=== PATIENT | male | born 1945 | race Caucasian/White ===

== ENCOUNTER 2023-08-08 10:15 | Inpatient (IN) ==
[2023-08-08] MEDS: SODIUM CHLORIDE 0.9% 1,000 ML IV SCH (11:17)
[2023-08-08] MEDS: ALBUT/IPRATROP 3MG/0.5MG NEB 3 ML VIAL NEB STA (11:17)
[2023-08-08] MEDS: ONDANSETRON INJ 2 MG/ML 2 ML VIAL IV STA (11:17)
[2023-08-08 11:28] LABS: Basophils # (auto) 0.05 K/uL (0.00-0.20); Basophils % (auto) 0.6 %; Eosinophils # (auto) 0.28 K/uL (0.00-0.50); Eosinophils % (auto) 3.6 %; Hematocrit (blood only) 31.3 % (42.0-52.0); Hemoglobin 9.4 g/dl (14.0-18.0); Immature Granulocytes # (auto) 0.04 K/uL (0.01-0.20); Immature Granulocytes % (auto) 0.5 %; Lymphocytes % (auto) 5.1 %; Mean Corpuscular Hemoglobin 28.3 pg (25.0-34.0); Mean Corpuscular Volume 94.3 fL (80.0-100.0); Mean Platelet Volume 10.4 fL (9.4-12.4); Monocytes # (auto) 0.58 K/uL (0.11-0.59); Monocytes % (auto) 7.4 %; Neutrophils # (auto) 6.45 K/uL (1.40-6.50); Neutrophils % (auto) 82.8 %; Platelet Count 149 K/uL (130-400); RDW Coefficient of Variation 18.6 % (11.5-14.5); RDW Standard Deviation 64.4 fL (36.4-46.3); Red Blood Count 3.32 M/uL (4.70-6.10)
--- NOTE | 2023-08-08 11:37 | XRay Report ---
XR chest 1V portable CLINICAL HISTORY: weakness TECHNIQUE: Single frontal radiograph of the chest was obtained. Comparison: None available at the time of this dictation. FINDINGS: Median sternotomy wires are unchanged. Cardiomegaly is noted. The aortic arch is calcified. Prominenc e and cephalization of the vasculature is seen. Bilateral lower lung airspace opacities. No evidence of pleural effusion or pneumothorax. IMPRESSION: 1. Cardiomegaly and mild pulmonary edema. 2. Bilateral lower lung airspace opacities This may represent atelectasis, pneumonia, and/or aspirat ion. ACT 112: Negative or not required by law. Electronically signed by: Toni Novak M.D. 08/08/2023 11:35 AM
[2023-08-08 11:40] LABS: Alanine Aminotransferase 23 U/L (7-52); Albumin Level 3.7 gm/dl (3.4-5.0); Alkaline Phosphatase 42 U/L (34-104); Anion Gap 6 (3-11); Aspartate Aminotransferase 82 U/L (13-39); BUN Creatinine Ratio 14.7 (10-20); Bilirubin,Total 0.8 mg/dl (0.2-1.0); Blood Urea Nitrogen 33 mg/dl (6-23); Calcium 9.3 mg/dl (8.6-10.3); Carbon Dioxide 24 mmol/L (21-32); Chloride 108 mmol/L (98-107); Est GFR (African American) 31.4 ml/min; Est GFR (Non-African American) 27.1 ml/min; Globulin 3.7 gm/dl (2.5-4.0); Glucose 70 mg/dl (70-99(Fasting)); Magnesium 1.7 mg/dl (1.7-2.4); Potassium 5.6 mmol/L (3.5-5.1); Sodium 138 mmol/L (136-145); Total Protein 7.4 gm/dl (6.0-8.3)
[2023-08-08 11:54] LABS: Thyroid Stimulating Hormone 7.273 uIu/ml (0.300-4.500)
[2023-08-08 11:57] LABS: Prothrombin Time 56.4 Seconds (9.0-12.0)
[2023-08-08 12:01] LABS: INR 5.8 (0.9-1.1)
[2023-08-08] MEDS: PIPERACILLIN/TAZOBACTAM 4.5 GM/100 ML BAG IV ONE (12:13)
[2023-08-08 12:18] LABS: Adenovirus PCR Not Detected (NotDetected); Bordetella parapertussis PCR Not Detected (NotDetected); Bordetella pertussis PCR Not Detected (NotDetected); Chlamydia pneumoniae PCR Not Detected (NotDetected); Coronavirus 229E PCR Not Detected (NotDetected); Coronavirus CoV-2 (COVID19)PCR Not Detected (NotDetected); Coronavirus HKU1 PCR Not Detected (NotDetected); Coronavirus NL63 PCR Not Detected (NotDetected); Coronavirus OC43PCR Not Detected (NotDetected); Human Metapneumovirus PCR Not Detected (NotDetected); Influenza A PCR Not Detected (NotDetected); Influenza B PCR Not Detected (NotDetected); Mycoplasma pneumoniae PCR Not Detected (NotDetected); Parainfluenza Virus 1 PCR Not Detected (NotDetected); Parainfluenza Virus 2 PCR Not Detected (NotDetected); Parainfluenza Virus 3 PCR Not Detected (NotDetected); Parainfluenza Virus 4 PCR Not Detected (NotDetected); Respiratory Syncytial VirusPCR Not Detected (NotDetected); Rhinovirus/Enterovirus PCR Not Detected (NotDetected)
[2023-08-08] MEDS: SODIUM CHLORIDE 0.9% 500 ML IV ONE ×2 (12:19→14:24)
[2023-08-08 12:29] LABS: T4 Free Thyroxine 1.18 ng/dl (0.61-1.60)
--- NOTE | 2023-08-08 12:38 | Emergency Department Note ---
Impression & Plan CHF (congestive heart failure), Nausea & vomiting, Generalized weakness, Supratherapeutic INR, Acute UTI (urinary tract infection) ED Provider Note NAME: IGLESIA VILLARREAL AGE: 78 SEX: Male INFORMANT: Patient and family ED PROVIDER(S): Rodrigo Alvarado MD CHIEF COMPLAINT: Vomiting, weakness PLAN: Disposition: Admitted Outpatient prescription management: none Referral: None MEDICAL DECISION MAKING: Patient presented with complaints of vomiting and weakness. Worked up initiated. Patient was nauseated and given zofran. He was started on gentle fluids due to borderline sats and peripheral edema on PE. He responded to a duoneb and supplemental oxygen. ECG did reveal some TWI inferiorly. Pt denied CP initially and on reassessments. CBC showed no leukocytosis, mild anemia was present. lactate negative and AST mildly elevated. INR supratherapeutic. Cr 2.25 which is up slightly compared to prior provided by . Potassium slighlty elevated at 5.6. CXR raised concern for CHF but also infiltrates at the bases. Head CT negative. Cystits, cirrhosis, and effusions on CT abd. Troponin slightly bumped and BNP elevated adding additional concern for CHF. Patients blood pressure was slightly low and he responded to gentle fluid boluses. Empiric zosyn was given after discussion with ED pharmacist. UA concenring for infection in light of the CT findings. SIRs/sepsis considered and possibly developing however given volumed overload with abnormal cardiac markers, aggressive fluid resuscitation held. Echo ordered for additional information. Patient reassessed multiple times. Consultation was made with Dr. Christopher Henao of the [facility] service. Case discussed and diagnostic reviewed. We agree on concerning volume status and infectious etiologies. Patient was evaluated in the ER for further management. Care/management discussed with: manager urology and ED pharmacist Level of care consideration(s): After review of the information above and other included data, I feel the patient requires escalation of care to admission. Triage Nursing notes: reviewed and agree them. Vital Signs: reviewed and remarkable for hypoxia and borderline hypotension Additional History obtained from: Family regarding current illness and functioning at home. Chronic Medical/Social Conditions affecting care: Anemia, indwelling marvin Prior/ Outside/ External records reviewed: Urology office visit reviewed. Pt appeared ill. Provider concerned and rec. ER referral. Differential Diagnosis: Infection, dehydration, metabolic abnormality, hypo/hyperglycemia, electrolyte disturbance, anemia, hypoxia, cardiac sources, intracerebral event, toxicologic, neurologic, as well as other pathologies. Diagnostics, independently interpreted by me: EC lead ecg reveals Sr with 1st AV block at 84 and inf TWI. Prominent t waves in V2. No ST elevation. Cardiac Monitoring: Cardiac monitoring ordered by me: The patient was placed on continuous cardiac monitoring and observed. It revealed a normal sinus rhythm at 77 beats per minute without ectopy or evidence of dysrhythmia. Medical decision rules: none Imaging studies: Head CT negative for bleed. CT abd with bilateral pleural effusions and cystitis CXR concerning for CHF and bibasilar infiltrates. HPI: 78 year old Male arrives for evaluation of weakness and vomiting. is present and helps with the history. She states that he has been having increased weakness over the last few days. She was traveling and when she returned home family noted that he was having trouble doing his ADLs. He seemed to be more lethargic. They had an appointment to see urology today as he has an indwelling catheter and when he was at the office he was generally weak and looked unwell. Provider there recommended ER evaluation. Patient stated that he felt carsick driving to the appointment and did have vomiting. Patient was recently admitted to the [facility] due to anemia and increased potassium level. He was pending outpatient iron infusion. Patient denies any recent bleeding issues. No new urinary symptoms. also notes that he had a minor fall a few weeks ago. Patient is anticoagulated. Denies any headache. Does feel mildly short of breath And has some mild ankle swelling. PAST MEDICAL HISTORY: See Below, anemia, anticoagulated PAST SURGICAL HISTORY: See Below, SOCIAL HISTORY: See Below, HOME MEDICATIONS: See Below ALLERGIES: See Below VITALS: See Below PHYSICAL EXAMINATION: GENERAL: Awake, alert, uncomfortable appearing, in no distress HENT: Normocephalic, atraumatic. Oropharynx unremarkable. EYES: Normal conjunctiva. Sclera non-icteric. NECK: Inspection normal. Non-tender. Supple. No nuchal rigidity. FROM. No masses. RESPIRATORY: Crackles in both bases. Normal respiratory effort. CARDIAC: Normal rate. Normal rhythm. Systolic murmur. Extremities warm and well perfused. Pulses equal. No JVD. GI: Soft, non-distended. No tenderness to palpation. No rebound or guarding. No masses. RECTAL: Deferred. MUSCULOSKELETAL: Atraumatic. Chest examination reveals no tenderness. The back is symmetrical on inspection without obvious abnormality. There is no CVA tenderness to palpation. No joint edema. LOWER EXTREMITIES: Calves are equal size bilaterally and non-tender. 2+ edema. Chronic venous discoloration. NEURO: Normal sensorium. No sensory or motor deficits noted. SKIN: No rash or jaundice noted. PROCEDURES: none CRITICAL CARE: I have personally spent 35 minutes of critical care time in the direct management of this patient. This includes bedside care, interpretation of diagnostic studies, and testing, discussion with consultants, patient, and family members, and other required patient management activities. These minutes are in excess of all separately billable procedures. OBSERVATION NOTE: none Past Med/Surg History Medical History (Updated 08/08/23 @ 18:51 by Rodrigo Alvarado MD) Indwelling Marvin catheter present Diabetes mellitus, type 2 NIDDM Osteoarthritis GERD (gastroesophageal reflux disease) Anxiety Hx of prostatic malignancy Spring 2020 Treated with radiation treatments Hx of aortic aneurysm s/p107/2020 in [facility] Follows with [facility] Cardiology Hypertension Suspected sleep apnea History of COVID-19 x2 Most recent home test positive 10/13/22- asymptomatic (tested d/t family members were positive) History of fractured vertebra Cervical fracture 11/18/21- medical management recommended, follows with physical therapy, "full ROM" per patient Surgical History (Updated 08/08/23 @ 16:19 by Christopher Henao MD) History of flexible sigmoidoscopy History of colonoscopy History of cholecystectomy History of appendectomy History of prostate surgery to stop prostate bleeding in Summer 2020 History of aortic aneurysm repair 05/2021 in [facility] Follows with [facility] Cardiology H/O heart surgery graphite aortic valve placed in [place] at age 44. 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 Beliefs That Will Affect Care: None marital status: Current Living Situation: Spouse current occupational status: retired Feels Safe at Home: Yes Assistive Devices: Glasses and Hearing Aid - Right Allergies Allergies Allergy/AdvReac Type Severity Reaction Status Date / Time plasma Allergy Severe frozen Uncoded 04/22/23 14:50 plasma - developed hives Home Meds Home Medications Medication Instructions Recorded Confirmed amiodarone 200 mg tablet 100 mg PO QAM 10/07/22 08/08/23 cholecalciferol (vitamin D3) 50 50 mcg PO .@199910/07/22 08/08/23 mcg (2,000 unit) capsule cholestyramine (with sugar) 4 gram 0.5 ea PO UD PRN Diarrhea 10/07/22 08/08/23 oral powder clonazepam 0.5 mg tablet 0.5 mg PO DAILY PRN Anxiety 10/07/22 08/08/23 fenofibric acid (choline) 135 mg 135 mg PO QA 10/07/22 08/08/23 capsule,delayed release furosemide 20 mg tablet 20 mg PO [facility] 10/07/22 08/08/23 hydrocortisone acetate 1 % topical 1 applic topical BID PRN Skin 10/07/22 08/08/23 cream Irritation metformin 1,000 mg tablet 1,000 mg PO BID 10/07/22 08/08/23 metoprolol tartrate 25 mg tablet 50 mg PO .@199910/07/22 08/08/23 pantoprazole 40 mg tablet,delayed 40 mg PO .@1700 10/07/22 08/08/23 release aripiprazole 2 mg tablet (Abilify) 2 mg PO [facility] 11/14/22 08/08/23 simethicone 125 mg capsule 125 mg PO DAILY PRN gas pain 11/14/22 08/08/23 enoxaparin 80 mg/0.8 mL 80 mg subcut UD PRN upcoming 11/25/22 08/08/23 subcutaneous syringe (Lovenox) surgery metoprolol tartrate 25 mg tablet 25 mg PO QA 11/25/22 08/08/23 sertraline 100 mg tablet 100 mg PO .@199911/25/22 08/08/23 tamsulosin 0.4 mg capsule 0.4 mg PO .@199911/25/22 08/08/23 levothyroxine 50 mcg tablet 75 mcg PO .NOON 04/22/23 08/08/23 Iron 325mg + Vit C Chewable See Rx Instructions .Route .COMPLEX 08/08/23 08/08/23 Thiamine B1 Chewable 1,000 mg PO .@199908/08/23 08/08/23 cephalexin 500 mg capsule See Rx Instructions .Route .COMPLEX 08/08/23 08/08/23 warfarin 2 mg tablet See Rx Instructions .Route .COMPLEX 08/08/23 08/08/23 Results & Data (ED) Vital Signs Vital Signs - 24 hr 08/08/23 10:20 08/08/23 11:09 08/08/23 11:58 Temperature 36.9 C Temperature Source Temporal Artery Scan Pulse Rate 88 79 Pulse Rate [Apical] Pulse Rate from SpO2 Sensor Respiratory Rate 16 Blood Pressure 115/51 L Blood Pressure [Right Arm] Blood Pressure Mean 72 Blood Pressure Mean [Right Arm] Pulse Oximetry 95 96 Oxygen Delivery Method Room Air Nasal Cannula Oxygen Flow Rate 5 Sepsis Recent Fever Within 48 Hours No Sepsis New/Unexplained Change in Mental Status No Sepsis Action Taken by Nursing No Action Required 08/08/23 12:55 08/08/23 13:00 08/08/23 13:15 Temperature Temperature Source Pulse Rate 72 Pulse Rate [Apical] 73 Pulse Rate from SpO2 Sensor 71 Respiratory Rate 22 23 Blood Pressure 93/49 L 88/52 L Blood Pressure [Right Arm] 91/50 L Blood Pressure Mean 63 57 Blood Pressure Mean [Right Arm] 63 Pulse Oximetry 94 95 Oxygen Delivery Method Nasal Cannula Oxygen Flow Rate 3 3 Sepsis Recent Fever Within 48 Hours Sepsis New/Unexplained Change in Mental Status Sepsis Action Taken by Nursing 08/08/23 13:15 08/08/23 13:30 08/08/23 13:31 Temperature Temperature Source Pulse Rate 67 70 72 Pulse Rate [Apical] Pulse Rate from SpO2 Sensor 67 69 71 Respiratory Rate 24 27 H 27 H Blood Pressure 88/52 L 85/54 L 95/52 L Blood Pressure [Right Arm] Blood Pressure Mean 64 64 66 Blood Pressure Mean [Right Arm] Pulse Oximetry 94 96 97 Oxygen Delivery Method Nasal Cannula Nasal Cannula Nasal Cannula Oxygen Flow Rate 3 3 3 Sepsis Recent Fever Within 48 Hours Sepsis New/Unexplained Change in Mental Status Sepsis Action Taken by Nursing 08/08/23 13:45 08/08/23 14:00 08/08/23 14:15 Temperature Temperature Source Pulse Rate 66 68 66 Pulse Rate [Apical] Pulse Rate from SpO2 Sensor 67 68 66 Respiratory Rate 23 23 21 Blood Pressure 97/50 L 95/51 L 104/53 L Blood Pressure [Right Arm] Blood Pressure Mean 65 65 70 Blood Pressure Mean [Right Arm] Pulse Oximetry 97 98 92 Oxygen Delivery Method Nasal Cannula Nasal Cannula Nasal Cannula Oxygen Flow Rate 3 3 3 Sepsis Recent Fever Within 48 Hours Sepsis New/Unexplained Change in Mental Status Sepsis Action Taken by Nursing 08/08/23 16:00 08/08/23 16:04 08/08/23 18:00 Temperature Temperature Source Pulse Rate 68 Pulse Rate [Apical] 68 65 Pulse Rate from SpO2 Sensor Respiratory Rate 22 20 Blood Pressure Blood Pressure [Right Arm] 90/56 L 107/65 Blood Pressure Mean Blood Pressure Mean [Right Arm] 67 79 Pulse Oximetry 98 Oxygen Delivery Method Nasal Cannula Nasal Cannula Oxygen Flow Rate Sepsis Recent Fever Within 48 Hours Sepsis New/Unexplained Change in Mental Status Sepsis Action Taken by Nursing Laboratory Data 08/08/23 11:00 08/08/23 15:50 Lab Results 08/08/23 08/08/23 08/08/23 Range/Units 11:00 11:13 11:17 WBC 7.80 (4.8-10.8) K/ul RBC 3.32 L (4.70-6.10) M/uL Hgb 9.4 L (14.0-18.0) g/dl Hct 31.3 L (42.0-52.0) % MCV 94.3 (80.0-100.0) fL MCH 28.3 (25.0-34.0) pg MCHC 30.0 L (32.0-36.0) g/dL RDW Std Deviation 64.4 H (36.4-46.3) fL RDW Coeff of Nick 18.6 H (11.5-14.5) % Plt Count 149 (130-400) K/uL MPV 10.4 (9.4-12.4) fL Immature Gran % (Auto) 0.5 % Neut % (Auto) 82.8 % Lymph % (Auto) 5.1 % Eddy % (Auto) 7.4 % Eos % (Auto) 3.6 % Baso % (Auto) 0.6 % Neut # (Auto) 6.45 (1.40-6.50) K/uL Lymph # (Auto) 0.40 L (1.20-3.40) K/uL Eddy # (Auto) 0.58 (0.11-0.59) K/uL Eos # (Auto) 0.28 (0.00-0.50) K/uL Baso # (Auto) 0.05 (0.00-0.20) K/uL Immature Gran # (Auto) 0.04 (0.01-0.20) K/uL PT 56.4 H (9.0-12.0) Seconds INR 5.8 H* (0.9-1.1) Sodium 138 (136-145) mmol/L Potassium 5.6 H (3.5-5.1) mmol/L Chloride 108 H (98-107) mmol/L Carbon Dioxide 24 (21-32) mmol/L Anion Gap 6 (3-11) BUN 33 H (6-23) mg/dl Creatinine 2.25 H (0.6-1.4) mg/dl Est Cr Clr Drug Dosing Not Reportable Est GFR ( Amer) 31.4 ml/min Est GFR (Non-Af Amer) 27.1 ml/min BUN/Creatinine Ratio 14.7 (10-20) Glucose 70 (70-99(Fasting)) mg/dl Lactate (0.4-2.0) mmol/L Calcium 9.3 (8.6-10.3) mg/dl Magnesium 1.7 (1.7-2.4) mg/dl Total Bilirubin 0.8 (0.2-1.0) mg/dl AST 82 H (13-39) U/L ALT 23 (7-52) U/L Alkaline Phosphatase 42 (34-104) U/L Troponin I High Sens (0-20) pg/ml B-Natriuretic Peptide (0-100) pg/ml Total Protein 7.4 (6.0-8.3) gm/dl Albumin 3.7 (3.4-5.0) gm/dl Globulin 3.7 (2.5-4.0) gm/dl Albumin/Globulin Ratio 1.0 (0.9-2) Procalcitonin 0.19 (0-0.5) ng/ml TSH 7.273 H (0.300-4.500) uIu/ml Free T4 1.18 (0.61-1.60) ng/dl Urine Color Urine Appearance (Clear) Urine pH (4.5-7.5) Ur Specific Hudson (1.000-1.030) Urine Protein (Negative) Urine Glucose (UA) (Negative) Urine Ketones (Negative) Urine Blood (Negative) Urine Nitrite (Negative) Urine Bilirubin (Negative) Urine Urobilinogen (Negative) Ur Leukocyte Esterase (Negative) Urine WBC (Auto) (0-5) /hpf Urine RBC (Auto) (0-4) /hpf U Hyaline Cast (Auto) (0-5) /lpf U Epithel Cells (Auto) (0-5) /lpf Urine Bacteria (Auto) (Negative) Nasal Screen MRSA (PCR) (Negative) Adenovirus (PCR) Not Detected (NotDetected) B. pertussis DNA (PCR) Not Detected (NotDetected) B.parapertussis DNA PCR Not Detected (NotDetected) C. pneumoniae DNA (PCR) Not Detected (NotDetected) Coronavirus OC43 (PCR) Not Detected (NotDetected) Coronavirus HKU1 (PCR) Not Detected (NotDetected) Coronavirus 229E (PCR) Not Detected (NotDetected) SARS-CoV-2 (PCR) Not Detected (NotDetected) Coronavirus NL63 (PCR) Not Detected (NotDetected) Human Metapneumovir PCR Not Detected (NotDetected) Influenza Type A (PCR) Not Detected (NotDetected) Influenza Type B (PCR) Not Detected (NotDetected) M. pneumoniae (PCR) Not Detected (NotDetected) Parainfluenza 1 (PCR) Not Detected (NotDetected) Parainfluenza 2 (PCR) Not Detected (NotDetected) Parainfluenza 3 (PCR) Not Detected (NotDetected) Parainfluenza 4 (PCR) Not Detected (NotDetected) RSV (PCR) Not Detected (NotDetected) Entero/Rhino (PCR) Not Detected (NotDetected) 08/08/23 08/08/23 08/08/23 Range/Units 12:12 14:00 15:04 WBC (4.8-10.8) K/ul RBC (4.70-6.10) M/uL Hgb (14.0-18.0) g/dl Hct (42.0-52.0) % MCV (80.0-100.0) fL MCH (25.0-34.0) pg MCHC (32.0-36.0) g/dL RDW Std Deviation (36.4-46.3) fL RDW Coeff of Nick (11.5-14.5) % Plt Count (130-400) K/uL MPV (9.4-12.4) fL Immature Gran % (Auto) % Neut % (Auto) % Lymph % (Auto) % Eddy % (Auto) % Eos % (Auto) % Baso % (Auto) % Neut # (Auto) (1.40-6.50) K/uL Lymph # (Auto) (1.20-3.40) K/uL Eddy # (Auto) (0.11-0.59) K/uL Eos # (Auto) (0.00-0.50) K/uL Baso # (Auto) (0.00-0.20) K/uL Immature Gran # (Auto) (0.01-0.20) K/uL PT (9.0-12.0) Seconds INR (0.9-1.1) Sodium (136-145) mmol/L Potassium (3.5-5.1) mmol/L Chloride (98-107) mmol/L Carbon Dioxide (21-32) mmol/L Anion Gap (3-11) BUN (6-23) mg/dl Creatinine (0.6-1.4) mg/dl Est Cr Clr Drug Dosing Est GFR ( Amer) ml/min Est GFR (Non-Af Amer) ml/min BUN/Creatinine Ratio (10-20) Glucose (70-99(Fasting)) mg/dl Lactate 1.4 (0.4-2.0) mmol/L Calcium (8.6-10.3) mg/dl Magnesium (1.7-2.4) mg/dl Total Bilirubin (0.2-1.0) mg/dl AST (13-39) U/L ALT (7-52) U/L Alkaline Phosphatase (34-104) U/L Troponin I High Sens 12.2 (0-20) pg/ml B-Natriuretic Peptide 1277 H (0-100) pg/ml Total Protein (6.0-8.3) gm/dl Albumin (3.4-5.0) gm/dl Globulin (2.5-4.0) gm/dl Albumin/Globulin Ratio (0.9-2) Procalcitonin (0-0.5) ng/ml TSH (0.300-4.500) uIu/ml Free T4 (0.61-1.60) ng/dl Urine Color Yellow Urine Appearance Cloudy A (Clear) Urine pH 5.0 (4.5-7.5) Ur Specific Hudson 1.016 (1.000-1.030) Urine Protein 2+ H (Negative) Urine Glucose (UA) Negative (Negative) Urine Ketones Negative (Negative) Urine Blood 1+ H (Negative) Urine Nitrite Negative (Negative) Urine Bilirubin Negative (Negative) Urine Urobilinogen Negative (Negative) Ur Leukocyte Esterase 1+ H (Negative) Urine WBC (Auto) 1-5 (0-5) /hpf Urine RBC (Auto) 5-10 H (0-4) /hpf U Hyaline Cast (Auto) 1-5 (0-5) /lpf U Epithel Cells (Auto) 5-10 H (0-5) /lpf Urine Bacteria (Auto) Negative (Negative) Nasal Screen MRSA (PCR) Negative (Negative) Adenovirus (PCR) (NotDetected) B. pertussis DNA (PCR) (NotDetected) B.parapertussis DNA PCR (NotDetected) C. pneumoniae DNA (PCR) (NotDetected) Coronavirus OC43 (PCR) (NotDetected) Coronavirus HKU1 (PCR) (NotDetected) Coronavirus 229E (PCR) (NotDetected) SARS-CoV-2 (PCR) (NotDetected) Coronavirus NL63 (PCR) (NotDetected) Human Metapneumovir PCR (NotDetected) Influenza Type A (PCR) (NotDetected) Influenza Type B (PCR) (NotDetected) M. pneumoniae (PCR) (NotDetected) Parainfluenza 1 (PCR) (NotDetected) Parainfluenza 2 (PCR) (NotDetected) Parainfluenza 3 (PCR) (NotDetected) Parainfluenza 4 (PCR) (NotDetected) RSV (PCR) (NotDetected) Entero/Rhino (PCR) (NotDetected) 08/08/23 Range/Units 15:50 WBC (4.8-10.8) K/ul RBC (4.70-6.10) M/uL Hgb (14.0-18.0) g/dl Hct (42.0-52.0) % MCV (80.0-100.0) fL MCH (25.0-34.0) pg MCHC (32.0-36.0) g/dL RDW Std Deviation (36.4-46.3) fL RDW Coeff of Nick (11.5-14.5) % Plt Count (130-400) K/uL MPV (9.4-12.4) fL Immature Gran % (Auto) % Neut % (Auto) % Lymph % (Auto) % Eddy % (Auto) % Eos % (Auto) % Baso % (Auto) % Neut # (Auto) (1.40-6.50) K/uL Lymph # (Auto) (1.20-3.40) K/uL Eddy # (Auto) (0.11-0.59) K/uL Eos # (Auto) (0.00-0.50) K/uL Baso # (Auto) (0.00-0.20) K/uL Immature Gran # (Auto) (0.01-0.20) K/uL PT (9.0-12.0) Seconds INR (0.9-1.1) Sodium 140 (136-145) mmol/L Potassium 5.2 H (3.5-5.1) mmol/L Chloride 111 H (98-107) mmol/L Carbon Dioxide 22 (21-32) mmol/L Anion Gap 7 (3-11) BUN 32 H (6-23) mg/dl Creatinine 2.18 H (0.6-1.4) mg/dl Est Cr Clr Drug Dosing 29.3 Est GFR ( Amer) 32.6 ml/min Est GFR (Non-Af Amer) 28.2 ml/min BUN/Creatinine Ratio 14.7 (10-20) Glucose 71 (70-99(Fasting)) mg/dl Lactate (0.4-2.0) mmol/L Calcium 8.6 (8.6-10.3) mg/dl Magnesium (1.7-2.4) mg/dl Total Bilirubin (0.2-1.0) mg/dl AST (13-39) U/L ALT (7-52) U/L Alkaline Phosphatase (34-104) U/L Troponin I High Sens (0-20) pg/ml B-Natriuretic Peptide (0-100) pg/ml Total Protein (6.0-8.3) gm/dl Albumin (3.4-5.0) gm/dl Globulin (2.5-4.0) gm/dl Albumin/Globulin Ratio (0.9-2) Procalcitonin (0-0.5) ng/ml TSH (0.300-4.500) uIu/ml Free T4 (0.61-1.60) ng/dl Urine Color Urine Appearance (Clear) Urine pH (4.5-7.5) Ur Specific Hudson (1.000-1.030) Urine Protein (Negative) Urine Glucose (UA) (Negative) Urine Ketones (Negative) Urine Blood (Negative) Urine Nitrite (Negative) Urine Bilirubin (Negative) Urine Urobilinogen (Negative) Ur Leukocyte Esterase (Negative) Urine WBC (Auto) (0-5) /hpf Urine RBC (Auto) (0-4) /hpf U Hyaline Cast (Auto) (0-5) /lpf U Epithel Cells (Auto) (0-5) /lpf Urine Bacteria (Auto) (Negative) Nasal Screen MRSA (PCR) (Negative) Adenovirus (PCR) (NotDetected) B. pertussis DNA (PCR) (NotDetected) B.parapertussis DNA PCR (NotDetected) C. pneumoniae DNA (PCR) (NotDetected) Coronavirus OC43 (PCR) (NotDetected) Coronavirus HKU1 (PCR) (NotDetected) Coronavirus 229E (PCR) (NotDetected) SARS-CoV-2 (PCR) (NotDetected) Coronavirus NL63 (PCR) (NotDetected) Human Metapneumovir PCR (NotDetected) Influenza Type A (PCR) (NotDetected) Influenza Type B (PCR) (NotDetected) M. pneumoniae (PCR) (NotDetected) Parainfluenza 1 (PCR) (NotDetected) Parainfluenza 2 (PCR) (NotDetected) Parainfluenza 3 (PCR) (NotDetected) Parainfluenza 4 (PCR) (NotDetected) RSV (PCR) (NotDetected) Entero/Rhino (PCR) (NotDetected) Administered Medications Sodium Chloride (Nss) 1,000 mls @ 70 mls/hr IV .[id number] DANIEL Stop: 09/07/23 11:14 Last Admin: 08/08/23 11:17 Dose: 125 mls/hr Documented By: LOTTIE Piperacillin Sod/Tazobactam (Sod 4.5 gm/ Dextrose) 100 mls @ 25 mls/hr IV Q8H DANIEL; Protocol Stop: 08/10/23 16:59 Last Admin: 08/08/23 17:50 Dose: 25 mls/hr Documented By: FILIBERTO Discontinued Medications Albuterol (Albut/Ipratrop 3mg/0.5mg Neb 3 Ml Vial) 3 ml NEB NOW STA; Protocol Stop: 08/08/23 11:05 Last Admin: 08/08/23 11:17 Dose: 3 ml Documented By: LOTTIE Piperacillin Sod/Tazobactam Sod (Zosyn) 4.5 gm in 100 mls @ 200 mls/hr IV NOW ONE Stop: 08/08/23 12:20 Last Infusion: 08/08/23 13:05 Dose: Infused Documented By: Admin: 08/08/23 12:13 Dose: 200 mls/hr Documented By: LOTTIE Sodium Chloride (Nss) 500 mls @ 999 mls/hr IV .Q31M ONE Stop: 08/08/23 12:21 Last Infusion: 08/08/23 12:50 Dose: Infused Documented By: Admin: 08/08/23 12:19 Dose: 999 mls/hr Documented By: Sodium Chloride (Nss) 500 mls @ 999 mls/hr IV .Q31M ONE Stop: 08/08/23 13:59 Last Infusion: 08/08/23 16:57 Dose: Infused Documented By: Admin: 08/08/23 14:24 Dose: 999 mls/hr Documented By: FILIBERTO Ondansetron HCl (Ondansetron Inj 2 Mg/Ml 2 Ml Vial) 4 mg IV NOW STA Stop: 08/08/23 11:05 Last Admin: 08/08/23 11:17 Dose: 4 mg Documented By: Imaging Data Radiologist's Impression: Chest X-Ray 08/08/23 10:42 XR chest 1V portable CLINICAL HISTORY: weakness TECHNIQUE: Single frontal radiograph of the chest was obtained. Comparison: None available at the time of this dictation. FINDINGS: Median sternotomy wires are unchanged. Cardiomegaly is noted. The aortic arch is calcified. Prominence and cephalization of the vasculature is seen. Bilateral lower lung airspace opacities. No evidence of pleural effusion or pneumothorax. IMPRESSION: 1. Cardiomegaly and mild pulmonary edema. 2. Bilateral lower lung airspace opacities This may represent atelectasis, pneumonia, and/or aspiration. ACT 112: Negative or not required by law. Electronically signed by: Toni Novak M.D. 08/08/2023 11:35 AM Abdomen/Pelvis CT 08/08/23 11:51 CT SCAN OF THE ABDOMEN AND PELVIS WITHOUT IV CONTRAST CLINICAL HISTORY: Vomiting. Acute renal insufficiency COMPARISON STUDY: No priors. TECHNIQUE: CT scan of the abdomen and pelvis is performed from the lung bases to the proximal femora. Images are reviewed in the axial, sagittal, and coronal planes. IV contrast was not administered for this examination due to poor renal function. Note that the examination is significantly suboptimal without oral and IV contrast. A dose lowering technique was utilized adhering to the principles of ALARA. CT DOSE: 1156.14 mGy.cm FINDINGS: Lung bases: The patient is status post midline sternotomy. The heart is enlarged and without pericardial effusion. The coronary arteries and mitral annulus are densely calcified. There are moderate pleural effusions with dependent consolidation. Liver: The unenhanced liver is enlarged an heterogeneous, measuring 21.3 cm in length. There is nodularity of the hepatic surface contour indicating morphologic changes of cirrhosis. There is no intrahepatic biliary ductal dilatation. Gallbladder: Surgically absent noting clips in the gallbladder fossa. Spleen: The spleen is enlarged measuring 15.2 cm in length. Pancreas: The unenhanced pancreas is grossly unremarkable. Adrenal glands: Unremarkable. Kidneys: The unenhanced kidneys are normal in size and without hydronephrosis. There are punctate bilateral nonobstructing renal calculi. No ureteral stone is seen. A peripherally calcified cyst arising from the right lower pole measures up to 2.3 cm. A 1.6 cm cyst arises from the left lower pole. Abdominal vasculature: The abdominal aorta is normal in course and caliber noting moderate to advanced atherosclerotic calcification. Bowel: There are scattered colonic diverticula without CT evidence of acute diverticulitis. No bowel obstruction is seen. The appendix is well-visualized and normal. Peritoneum: No intraperitoneal free air is identified. There is a vesnw-in-fkansnhu volume of abdominopelvic ascites. There is a fat-containing umbilical hernia. Lymphadenopathy: None. Pelvic viscera: The bladder is partially decompressed and a Marvin catheter. The bladder wall is markedly thickened with surrounding infiltration. There are nonspecific foci of intraluminal gas. The prostate gland is diminutive and heterogeneous. There is a fat and fluid-containing left inguinal hernia. Skeletal structures: The skeletal structures are heterogeneously osteopenic. Mild to moderate cerebral spondylosis is observed. No lytic or blastic lesions are seen. IMPRESSION: 1. The bladder wall appears markedly thickened with surrounding inflammation. Correlate with clinical findings and urinalysis. 2. The liver is enlarged and shows morphologic changes of cirrhosis. 3. Splenomegaly and a small to moderate volume of abdominopelvic ascites indicate portal hypertension. 4. Moderate pleural effusions with dependent consolidation, which likely represents atelectasis. Chronically clinically. 5. Cardiomegaly. 6. There are punctate bilateral nonobstructing renal calculi. 7. Additional findings as above. ACT 112: Negative or not required by law. Electronically signed by: Fuad Almaraz M.D. 08/08/2023 1:[address] 08/08/23 12:[address] DOSE: 2436.59 mGy.cm HISTORY: fall few weeks ago, vomiting TECHNIQUE: Multiaxial CT images of the head were performed without the use of intravenous contrast. Automated exposure control was utilized for this study. A dose lowering technique was utilized adhering to the principles of ALARA. Comparison: None. Findings: The paranasal sinuses and mastoid air cells are clear. The calvarium and skull base are intact. There is no mass, hematoma, midline shift, acute infarct. White matter hypodensity is nonspecific but suggestive of microvascular ischemic change. The ventricles and sulci demonstrate mild age-related involutional changes. There are old lacunar infarcts seen within the cerebellar hemispheres. Impression: No acute intracranial abnormality. ACT 112: Negative or not required by law. Electronically signed by: Ab Meyer M.D. 08/08/2023 1:11 PM Discharge Plan Visit Data Chief Complaint: Illness Stated Complaint: SHIVERING, WEAKNESS, PALE, VOMITING ED Provider: Rodrigo Alvarado Discharge Problem: CHF (congestive heart failure), Nausea & vomiting, Generalized weakness, Supratherapeutic INR, Acute UTI (urinary tract infection) Patient Disposition: Admitted As Inpatient Discharge Instructions Interventions: ED Discharge Assessment Last Done: 08/08/23 18:02 Prescriptions Prescriptions: No Action amiodarone 200 mg tablet 100 mg PO QAM cholecalciferol (vitamin D3) 50 mcg (2,000 unit) capsule 50 mcg PO .@1999 cholestyramine (with sugar) 4 gram powder 0.5 ea PO UD PRN (Reason: Diarrhea) Rx Instructions: unable to verify clonazepam 0.5 mg tablet 0.5 mg PO DAILY PRN (Reason: Anxiety) Rx Instructions: unable to verify fenofibric acid (choline) 135 mg capsule,delayed release(DR/EC) 135 mg PO QAM furosemide 20 mg tablet 20 mg PO QAM hydrocortisone acetate 1 % cream 1 applic topical BID PRN (Reason: Skin Irritation) Rx Instructions: unable to verify metformin 1,000 mg tablet 1,000 mg PO BID metoprolol tartrate 25 mg tablet 50 mg PO .@1999 pantoprazole 40 mg tablet,delayed release (DR/EC) 40 mg PO .@1700 aripiprazole [Abilify] 2 mg tablet 2 mg PO QAM simethicone 125 mg capsule 125 mg PO DAILY PRN (Reason: gas pain) Rx Instructions: unable to verify sertraline 100 mg Tablet 100 mg PO .@1999 enoxaparin [Lovenox] 80 mg/0.8 mL Syringe 80 mg SUBCUT UD PRN (Reason: upcoming surgery) Rx Instructions: unable to verify metoprolol tartrate 25 mg Tablet 25 mg PO QAM tamsulosin 0.4 mg capsule 0.4 mg PO .@1999 levothyroxine 50 mcg tablet 75 mcg PO .NOON cephalexin 500 mg Capsule See Rx Instructions .ROUTE .COMPLEX Rx Instructions: 2 x 500 mg BID Iron 325mg + Vit C Chewable See Rx Instructions .ROUTE .COMPLEX Rx Instructions: as directed @ 5PM Thiamine B1 Chewable 1,000 mg PO .@1999 warfarin 2 mg tablet See Rx Instructions .ROUTE .COMPLEX Rx Instructions: 3 mg daily except on Wednesdays (at 5pm) Friday 2 mg (took 5 mg 08/07/23)
--- NOTE | 2023-08-08 13:12 | CT Scan Report ---
HEAD CT NONCONTRAST CT DOSE: 2436.59 mGy.cm HISTORY: fall few weeks ago, vomiting TECHNIQUE: Multiaxial CT images of the head were performed without the use of intravenous contrast. A utomated exposure control was utilized for this study. A dose lowering technique was utilized adheri ng to the principles of ALARA. Comparison: None. Findings: The paranasal sinuses and mastoid air cells are clear. The calvarium and skull base are int act. There is no mass, hematoma, midline shift, acute infarct. White matter hypodensity is nonspecifi c but suggestive of microvascular ischemic change. The ventricles and sulci demonstrate mild age-rela zuly involutional changes. There are old lacunar infarcts seen within the cerebellar hemispheres. Impression: No acute intracranial abnormality. ACT 112: Negative or not required by law. Electronically signed by: Ab Meyer M.D. 08/08/2023 1:11 PM
--- NOTE | 2023-08-08 13:20 | CT Scan Report ---
CT SCAN OF THE ABDOMEN AND PELVIS WITHOUT IV CONTRAST CLINICAL HISTORY: Vomiting. Acute renal insufficiency COMPARISON STUDY: No priors. TECHNIQUE: CT scan of the abdomen and pelvis is performed from the lung bases to the proximal femora. Images are reviewed in the axial, sagittal, and coronal planes. IV contrast was not administered for this examination due to poor renal function. Note that the examination is significantly suboptimal w ithout oral and IV contrast. A dose lowering technique was utilized adhering to the principles of ALA RA. CT DOSE: 1156.14 mGy.cm FINDINGS: Lung bases: The patient is status post midline sternotomy. The heart is enlarged and without pericard ial effusion. The coronary arteries and mitral annulus are densely calcified. There are moderate pleu ral effusions with dependent consolidation. Liver: The unenhanced liver is enlarged an heterogeneous, measuring 21.3 cm in length. There is nodul arity of the hepatic surface contour indicating morphologic changes of cirrhosis. There is no intrahe patic biliary ductal dilatation. Gallbladder: Surgically absent noting clips in the gallbladder fossa. Spleen: The spleen is enlarged measuring 15.2 cm in length. Pancreas: The unenhanced pancreas is grossly unremarkable. Adrenal glands: Unremarkable. Kidneys: The unenhanced kidneys are normal in size and without hydronephrosis. There are punctate sandrita ateral nonobstructing renal calculi. No ureteral stone is seen. A peripherally calcified cyst arising from the right lower pole measures up to 2.3 cm. A 1.6 cm cyst arises from the left lower pole. Abdominal vasculature: The abdominal aorta is normal in course and caliber noting moderate to advance d atherosclerotic calcification. Bowel: There are scattered colonic diverticula without CT evidence of acute diverticulitis. No bowel obstruction is seen. The appendix is well-visualized and normal. Peritoneum: No intraperitoneal free air is identified. There is a hfels-fy-zzsraijl volume of abdomin opelvic ascites. There is a fat-containing umbilical hernia. Lymphadenopathy: None. Pelvic viscera: The bladder is partially decompressed and a Duran catheter. The bladder wall is marke dly thickened with surrounding infiltration. There are nonspecific foci of intraluminal gas. The pros watson gland is diminutive and heterogeneous. There is a fat and fluid-containing left inguinal hernia. Skeletal structures: The skeletal structures are heterogeneously osteopenic. Mild to moderate cerebra l spondylosis is observed. No lytic or blastic lesions are seen. IMPRESSION: 1. The bladder wall appears markedly thickened with surrounding inflammation. Correlate with clinical findings and urinalysis. 2. The liver is enlarged and shows morphologic changes of cirrhosis. 3. Splenomegaly and a small to moderate volume of abdominopelvic ascites indicate portal hypertension . 4. Moderate pleural effusions with dependent consolidation, which likely represents atelectasis. Assistant Media Planner nically clinically. 5. Cardiomegaly. 6. There are punctate bilateral nonobstructing renal calculi. 7. Additional findings as above. ACT 112: Negative or not required by law. Electronically signed by: Fuad Almaraz M.D. 08/08/2023 1:18 PM
--- NOTE | 2023-08-08 15:01 | History & Physical Report ---
Date of Service August 08, 2023 Assessment & Plan (1) Weakness: Plan: Sepsis w/ weakness, hypotension, rigors. Lactate normal - DDx includes PNA, UTI Patient with active rigors on outpatient neurology visit and was referred to the ER for poor p.o. intake, VINICIUS, and rigors concerning for sepsis Indwelling Marvin and UA with leukocyte esterase/blood. DDx does include pneumonia/aspiration with an episode of vomiting although patient was feeling poorly prior to this and no sputum production. Patient also with shortness of breath and a dry cough which she thinks has been going on for around 1 week. Patient is total body fluid overloaded with elevated BNP, moderate pleural effusions with dependent consolidation, and ankle edema; however his hypotension did improve to small 500, 500, and 125 cc boluses while in the ER with improvement of pressures to 104/53. Suspect patient is intravascularly depleted in the setting of sepsis although ultimately total body overloaded and will need diuresis once stable. Pt does not appear stable enough to tolerate diuresis at time of admission and with concerns of infection, BP improved/K improved/Cr improved with NSS suggestive of intravascular depletion and has been improving with small boluses with ~3L o2 req Will admit to PCU with small boluses. Patient is on 3 L of nasal cannula with diminished air movement but no overt rales. If oxygen requirements uptrend and and pt is both hypotensive and wet will consult ICU for pressor support. Clinically patient feels improved following initial fluids and abx, K downtrending, BP improved (2) VINICIUS (acute kidney injury): Plan: Creatinine increased from baseline around 1.7 up to 2.25 (baseline as per report with , pending faxes from [facility] to confirm - Suspect prerenal w/ sepsis. DDx includes cardiogenic. BMP trended (3) CHF (congestive heart failure): Plan: Patient denies history of CHF but reports he is on Lasix 20 mg in the morning for lower extremity edema and fluid retention Repeat EKG without ischemic change High sensitive troponin is normal BNP is elevated, bilateral pleural effusions on chest x-ray consistent with total volume overload although suspect patient is intravascularly depleted in the setting of acute infection Once clinically improving and can tolerate diuresis will progress to this as noted Repeat stat echo is pending. Last echo 11/2022 was with EF of 55%, dilated left atrium, mild concentric left ventricular hypertrophy, and no diastolic dysfunction noted. (4) Hyperkalemia: Plan: Hyperkalemia Potassium 5.6 in ER. Creatinine is elevated 2.2, last baseline was around 1.71.8 from outpatient record review S/p 1250 cc of saline with improvement, near normal (5.2). UOP increasing - BMP q4h. EKG without significant peaked T waves, no widened QRS (5) EKG abnormalities: Plan: Abnormal EKG Initial EKG w/ diffuse artifact.Automated read ?STEMI --> EKG repeated within less than 10 minutes and repeat was not consistent with STEMI, no territorial ST segment changes, and a normal QRS. Pending upload to [employer]. Patient's troponin is negative and he has not had chest pain at any point STAT Echo is pending (6) Diabetes mellitus, type 2: Plan: Hold metformin Converted to basal bolus control. Goal BSG 259118. Lantus 10 mg twice daily, CF 30, carb ratio 10 Heart healthy, DM2 diet (7) GERD (gastroesophageal reflux disease): Plan: - PPI daily (8) Hx of prostatic malignancy: Plan: history of radiation and Rezum. No known residual malignancy or mets hx of hematuria post radiation with indwelling marvin no acute [facility] management (9) S/P AVR: Plan: History of A-fib, medical/graphite aortic valve replacement INR 5.8 on admission, this was reportedly low on home reading yesterday and patient took 5 mg instead of his normal 3 mg yesterday Patient has trace petechiae in the feet bilaterally which are new. No GI bleeding, no epistaxis, and hemoglobin is 9.4 which is around his baseline of 89 Warfarin held. (10) Hx of aortic aneurysm: Plan: s/p repair, stable as outpt Plan Chronic stable: Hypothyroidism, continue Synthroid. 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 Per ER: P resented on referral from urology services wWhile in the urology office patient was weak, fatigued, and had an episode of active rigors and patient reported 1 episode of vomiting and diarrhea preceding this. He was referred to the ER for further care. His INR which was compared to 3 days ago which was 2.9 has risen to 5.6. His hemoglobin past baseline is approximately 89, hemoglobin 9.4 on admission without bleeding. Inferior T wave inversions were noted on EKG but patient has been without any chest pain.? Aspiration event, patient was recommended for evaluation of weakness with differential including aspiration pneumonia versus cystitis. On review bio fire is negative, moderate pleural effusions are noted, BNP is elevated. Troponin is normal and head CT is normal. Patient received 500 cc NSS x 1, 500 cc NSS x 1, and maintenance NSS at 125 cc/h while in the ER. CT of the abdomen pelvis is with thickening and surrounding inflammation concerning for UTI. Liver is with cirrhotic changes, moderate ascites and splenomegaly are noted, moderate pleural effusions with dependent consolidation suspected to be atelectasis are noted. Nonobstructive renal calculi are present. Per patient/: Papito is seen at the bedside with his present. Papito reports he was he was arielle to get his catheter removed at urology today. Indwelling catheter for hematuria post prostate cancer radiation tx and follows with Dr. Soto Pt felt feverish, shaking shivers and chills this morning and today. Shaking chills/rigors while in urology office and referred to ER [place] very cold the entire ride her from [place] Minimal PO intake and appetite the last few days +Nausea for a few days. Endorses shortness of breath in the past week. Deneis dysuria. Denies cough. denies chest pain or chest pressure. Endorses shortness of breath with exertion and easy fatigue. No nausea/vomiting/diarrhea Pt has had very little to eat/drink for at least the last 2-3 days. UOP decreased and dark, but recently returned from so is not sure for how long pt has been ill thinks 2-3 days. Denies increased leg swelling, does have ankle swelling present. New petechial rash in feet unsure of how long this has been present denies rash denies tick bites Sees Sho Bowman with [facility] who i sohams PCP, records pending Per /record review on phone: Hx of aortic metal/graphite heart valve on warfin. 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 Hx of bladder hematuria persistent due to radiation, s/p marvin placement. Was seen in [place] for this. Was told he has no residual cancer and no mets. MedHx: Denies hx CA, Does take fluid pills, reports this is for edema and lung fluid but denies heart failure. hx T2DM --> takes metformin. Hypothyroidism on synthroid Had afib around his aneurysm. Is on amiodarone which was decreased to a half pill once daily recently per pts . On warfarin for this and hx of metal/graphite AVR Pt notes Petechiae of the feet bilaterally x2 days ventral hernia, known no change, no pain Itching excoriation from dry skin Meds Review by Pts phone: Metoprolol 1 tab 25mg, flomax 0.4mg at night, fenofibric acid daily, lasix 20mg daily am, metformin 1g AM amiodarine 100 (changed from 200) daily ability 2mg 1 tab qAM for depression/panic Took pills this morning but 1x episode of emesis. Noon: synthroid 75mg 2 hours after eating 5pm: Iron 325mg + Vitamin C chewable Metformin 1g protonix 20mg Warfarin 2mg 3mg otherwise had 5mg of coumadin yesterday for INR 1.0 8p: Metoprolol 25 mg x2 tabs (50mg total) Flomax 0.4mg 2 tabs sertraline 100mg x1 Vitamin D3 50mcg, B1 1000mg chewables. Cephalexin 2x 500mg BID for cellulitis x2 days Medical History: Reviewed Medications: Reviewed. Had a recation to [facility] in the past. Surgical History: Reviewed Family history: Reviewed Allergies: Reviewed Social History: no tobacco or etoh Code Status: Full Code. Would not want prolonged intubation/ventilation for more than a few days. Allergies Allergy/AdvReac Type Severity Reaction Status Date / Time plasma Allergy Severe frozen Uncoded 04/22/23 14:50 plasma - developed hives Home Medications Medication Instructions Recorded Confirmed Type amiodarone 200 mg tablet 100 mg PO QAM 10/07/22 08/08/23 History cholecalciferol (vitamin D3) 50 50 mcg PO .@199910/07/22 08/08/23 History mcg (2,000 unit) capsule cholestyramine (with sugar) 4 gram 0.5 ea PO UD PRN Diarrhea 10/07/22 08/08/23 History oral powder clonazepam 0.5 mg tablet 0.5 mg PO DAILY PRN Anxiety 10/07/22 08/08/23 History fenofibric acid (choline) 135 mg 135 mg PO QAM 10/07/22 08/08/23 History capsule,delayed release furosemide 20 mg tablet 20 mg PO QA 10/07/22 08/08/23 History hydrocortisone acetate 1 % topical 1 applic topical BID PRN Skin 10/07/22 08/08/23 History cream Irritation metformin 1,000 mg tablet 1,000 mg PO BID 10/07/22 08/08/23 History metoprolol tartrate 25 mg tablet 50 mg PO .@199910/07/22 08/08/23 History pantoprazole 40 mg tablet,delayed 40 mg PO .@1700 10/07/22 08/08/23 History release aripiprazole 2 mg tablet (Abilify) 2 mg PO QAM 11/14/22 08/08/23 History simethicone 125 mg capsule 125 mg PO DAILY PRN gas pain 11/14/22 08/08/23 History enoxaparin 80 mg/0.8 mL 80 mg subcut UD PRN upcoming 11/25/22 08/08/23 History subcutaneous syringe (Lovenox) surgery metoprolol tartrate 25 mg tablet 25 mg PO QAM 11/25/22 08/08/23 History sertraline 100 mg tablet 100 mg PO .@199911/25/22 08/08/23 History tamsulosin 0.4 mg capsule 0.4 mg PO .@199911/25/22 08/08/23 History levothyroxine 50 mcg tablet 75 mcg PO .NOON 04/22/23 08/08/23 History Iron 325mg + Vit C Chewable See Rx Instructions .Route .COMPLEX 08/08/23 08/08/23 History Thiamine B1 Chewable 1,000 mg PO .@2000 08/08/23 08/08/23 History cephalexin 500 mg capsule See Rx Instructions .Route .COMPLEX 08/08/23 08/08/23 History warfarin 2 mg tablet See Rx Instructions .Route .COMPLEX 08/08/23 08/08/23 History Past Med/Surg History Medical History (Updated 08/08/23 @ 16:33 by Christopher Henao MD) Indwelling Marvin catheter present Diabetes mellitus, type 2 NIDDM Osteoarthritis GERD (gastroesophageal reflux disease) Anxiety Hx of prostatic malignancy Spring 2020 Treated with radiation treatments Hx of aortic aneurysm s/p107/2020 in [facility] Follows with [facility] Hypertension Suspected sleep apnea History of COVID-19 x2 Most recent home test positive 10/13/22- asymptomatic (tested d/t family members were positive) History of fractured vertebra Cervical fracture 11/18/21- medical management recommended, follows with physical therapy, "full ROM" per patient Surgical History (Updated 08/08/23 @ 16:19 by Christopher Henao MD) History of flexible sigmoidoscopy History of colonoscopy History of cholecystectomy History of appendectomy History of prostate surgery to stop prostate bleeding in Summer 2020 History of aortic aneurysm repair 05/2021 in [facility] Follows with [facility] H/O heart surgery graphite aortic valve placed in [place] at age 44. (a [facility]) Family History Mother Diabetes Hypertension Father Diabetes Other No family history of adverse response to anesthesia Social History (Updated 09/26/22 @ 13:07 by DYLAN Pfeiffer) Smoking Status: Never smoker Second Hand Exposure: No; Do You Dip or Chew Tobacco: No; Hx Alcohol Use: No Hx Substance Use: No Preferred Language: Bengali Communication Ability: Effective Hot Mill Operator Required: No Beliefs That Will Affect Care: None marital status: Current Living Situation: Spouse current occupational status: retired Feels Safe at Home: Yes Assistive Devices: Glasses and Hearing Aid - Right Physical Exam Physical Exam: General: Oriented to name and hospital. NAD. Cooperative. HEENT: Atraumatic, normocephalic. Vision/hearing intact, somewhat hard of hearing. Patient tends to mumble but with encouragement does speak clearly Pulm: Diminished without rales. 3 L nasal cannula Cardiac: RRR, systolic murmur. Radial pulses intact and symmetrical. Abdominal: Nontender, nondistended, soft. BS present. Extremities: Warm, dry. Central Office Associate strength, shoulder flexion, hip flexion, ankle dorsiflexion/plantarflexion 5/5 bilaterally without asymmetry and sensation soft touch is intact in hands and feet. Bilateral dorsal foot petechiae Results & Data Results & Data Vital Signs (Past 12 Hours) Vital Signs Temp Pulse Pulse Resp BP BP Pulse Ox 08/08/23 14:15 66 21 104/53 L 92 08/08/23 14:00 68 23 95/51 L 98 08/08/23 13:45 66 23 97/50 L 97 08/08/23 13:31 72 27 H 95/52 L 97 08/08/23 13:30 70 27 H 85/54 L 96 08/08/23 13:15 67 24 88/52 L 94 08/08/23 13:15 88/52 L 08/08/23 13:00 72 23 93/49 L 95 08/08/23 12:55 73 22 91/50 L 94 08/08/23 11:58 79 08/08/23 11:09 96 08/08/23 10:20 36.9 C 88 16 115/51 L 95 O2 Del Method O2 Flow Rate 08/08/23 14:15 Nasal Cannula 3 08/08/23 14:00 Nasal Cannula 3 08/08/23 13:45 Nasal Cannula 3 08/08/23 13:31 Nasal Cannula 3 08/08/23 13:30 Nasal Cannula 3 08/08/23 13:15 Nasal Cannula 3 08/08/23 13:15 08/08/23 13:00 Nasal Cannula 3 08/08/23 12:55 3 08/08/23 11:58 08/08/23 11:09 Nasal Cannula 5 08/08/23 10:20 Room Air PG Care Time/CCT Total # of Minutes Spent Total Time Spent with Patient: Total time spent is greater than 50% in coordination of care (as documented) at patient's floor/unit and/or counseling patient: Coding Level of Care Code 72399 INT INP/OBS CARE MIN Diagnoses Weakness R53.1 VINICIUS (acute kidney injury) N17.9 CHF (congestive heart failure) I50.9 Hyperkalemia E87.5 EKG abnormalities R94.31 Diabetes mellitus, type 2 E11.9 GERD (gastroesophageal reflux disease) K21.9 Hx of prostatic malignancy Z85.46 S/P AVR Z95.2 Hx of aortic aneurysm Z86.79
[2023-08-08 15:42] LABS: Appearance Urine Cloudy (Clear); Bacteria Urine Automated Negative (Negative); Bilirubin Urine Negative (Negative); Blood Urine 1+ (Negative); Color Urine Yellow; Glucose Urine UA Negative (Negative); Ketones Urine Negative (Negative); Leukocyte Esterase Urine 1+ (Negative); Nitrite Urine Negative (Negative); Protein Urine 2+ (Negative); Specific Gravity Urine 1.016 (1.000-1.030); Urobilinogen Urine Negative (Negative)
[2023-08-08 16:20] LABS: BUN Creatinine Ratio 14.7 (10-20); Calcium 8.6 mg/dl (8.6-10.3); Creatinine Clr Calc Pharmacy 29.3 ml/min; Est GFR (African American) 32.6 ml/min; Est GFR (Non-African American) 28.2 ml/min; Potassium 5.2 mmol/L (3.5-5.1)
[2023-08-08] MEDS: PIPERACILLIN/TAZOBACTAM 4.5 GM in DEXTROSE 5% MINI-B 100 ML IV SCH (17:50)
[2023-08-08] MEDS ORDERED: ONDANSETRON INJ 2 MG/ML 2 ML VIAL IV PRN (18:53)
[2023-08-08 19:19] LABS: Basophils # (auto) 0.02 K/uL (0.00-0.20); Basophils % (auto) 0.3 %; Eosinophils # (auto) 0.13 K/uL (0.00-0.50); Hematocrit (blood only) 27.6 % (42.0-52.0); Hemoglobin 8.1 g/dl (14.0-18.0); Immature Granulocytes # (auto) 0.03 K/uL (0.01-0.20); Immature Granulocytes % (auto) 0.5 %; Lymphocytes # (auto) 0.53 K/uL (1.20-3.40); Mean Corpuscular Hemoglobin 27.8 pg (25.0-34.0); Mean Corpuscular Hgb Conc 29.3 g/dL (32.0-36.0); Mean Corpuscular Volume 94.8 fL (80.0-100.0); Mean Platelet Volume 11.1 fL (9.4-12.4); Monocytes # (auto) 0.59 K/uL (0.11-0.59); Monocytes % (auto) 8.9 %; Neutrophils % (auto) 80.3 %; Platelet Count 128 K/uL (130-400); RDW Coefficient of Variation 18.6 % (11.5-14.5); RDW Standard Deviation 64.4 fL (36.4-46.3); Red Blood Count 2.91 M/uL (4.70-6.10)
[2023-08-08 19:35] LABS: Albumin Level 3.2 gm/dl (3.4-5.0); BUN Creatinine Ratio 13.4 (10-20); Bilirubin,Total 0.6 mg/dl (0.2-1.0); Calcium 8.3 mg/dl (8.6-10.3); Creatinine Clr Calc Pharmacy 27.5 ml/min; Est GFR (African American) 30.3 ml/min; Est GFR (Non-African American) 26.1 ml/min; Globulin 3.3 gm/dl (2.5-4.0); Potassium 5.5 mmol/L (3.5-5.1); Total Protein 6.5 gm/dl (6.0-8.3)
--- NOTE | 2023-08-08 19:36 | XCELERA ---
[id number] \\[id number]
[2023-08-08] MEDS: SODIUM CHLORIDE 0.9% 250 ML IV ONE (19:37)
[2023-08-08] MEDS: CHOLECALCIFEROL 25 MCG (1000 UNITS) TAB PO SCH (20:27)
[2023-08-08] MEDS: PANTOprazole 40 MG TAB PO SCH (20:27)
[2023-08-08] MEDS: SERTRALINE HCL 100 MG TABLET PO SCH (20:27)
[2023-08-08 23:02] LABS: BUN Creatinine Ratio 13.7 (10-20); Calcium 8.2 mg/dl (8.6-10.3); Creatinine Clr Calc Pharmacy 27.4 ml/min; Est GFR (African American) 30.1 ml/min; Potassium 5.4 mmol/L (3.5-5.1)
[2023-08-09 07:48] LABS: Hematocrit (blood only) 28.6 % (42.0-52.0); Hemoglobin 8.2 g/dl (14.0-18.0); Mean Corpuscular Hemoglobin 27.6 pg (25.0-34.0); Mean Corpuscular Hgb Conc 28.7 g/dL (32.0-36.0); Mean Corpuscular Volume 96.3 fL (80.0-100.0); Platelet Count 128 K/uL (130-400); RDW Coefficient of Variation 18.5 % (11.5-14.5); RDW Standard Deviation 64.6 fL (36.4-46.3); Red Blood Count 2.97 M/uL (4.70-6.10); White Blood Count 5.11 K/ul (4.8-10.8)
[2023-08-09 08:07] LABS: Albumin Level 3.3 gm/dl (3.4-5.0); BUN Creatinine Ratio 14.8 (10-20); Bilirubin,Total 0.6 mg/dl (0.2-1.0); Calcium 8.3 mg/dl (8.6-10.3); Creatinine Clr Calc Pharmacy 27.8 ml/min; Est GFR (African American) 30.6 ml/min; Est GFR (Non-African American) 26.4 ml/min; Globulin 3.3 gm/dl (2.5-4.0); Potassium 5.3 mmol/L (3.5-5.1); Total Protein 6.6 gm/dl (6.0-8.3)
[2023-08-09 08:15] LABS: Prothrombin Time 83.9 Seconds (9.0-12.0)
[2023-08-09 08:38] LABS: INR 8.8 (0.9-1.1)
--- NOTE | 2023-08-09 08:40 | Hospitalist Progress Note ---
Date of Service August 09, 2023 Assessment & Plan (1) Sepsis: Plan: -Pt admitted for acute weakness and multiple symptoms concerning for infection such as rigor, chills, subjective fevers, hypotensive on admission -UA on admission suggests infection and known recent hematuria, now with indwelling Duran -CTAP w/ bladder wall thickening, moderate pleural effusions suggesting atelectasis. Similar CXR findings -Respiratory symptoms of dyspnea and productive cough x1 week -Associated acute hypoxic respiratory failure, currently stable on 4L NC (increased from 3L on day prior) -Due to atelectasis vs PNA, will add incentive spirometry + mucociliary clearance regimen -Suspect sepsis secondary to primarily UTI though possibly with pneumonia as well (lower likelihood) -Symptomatically improved with IVF and Zosyn- currently afebrile, no leukocytosis, hemodynamically stable -Continue Zosyn for now -BCx, UCx pending -Monitor CBC (2) Weakness: Plan: -Acute weakness likely secondary to infectious illness as above with chronic deconditioning as well -Will need PT/OT evaluation for anticipated possible placement (3) CHF (congestive heart failure): Plan: -No reported previous history of CHF but is on Lasix 20 mg at home for fluid retention/peripheral edema -BNP 1277 on admission -TTE on admission- EF 55-60%, severe tricuspid regurgitation with moderately dilated RV -CXR on admission with b/l pleural effusions -Initially presented with intravascular volume depletion despite increased total body volume -Received fluid repletion in setting of sepsis -Deferring diuresis for now as euvolemic on exam (4) VINICIUS (acute kidney injury): Plan: -Cr 2.25 on admission (apparently baseline 1.7 - 2.25 per who discussed with admitting provider) -[facility] records pending -Likely pre-renal due to sepsis but there may be a component of renal hypo perfusion from poor forward flow as well -Some mild improvement to 2.25 with fluid repletion but increased again and now stable ~2.3 -May have small post-renal component from poor forward flow -Monitor BMP (5) S/P AVR: Plan: History of atrial fibrillation and medical/graphite aortic valve replacement Patient has trace petechiae in the feet bilaterally on admission which are new -No other sources of bleeding at present INR 5.8 on admission increasing to 8.8 today -Pt did take 5 mg warfarin on day prior to admission rather than 3 mg -Likely some elevation from sepsis as well -Deferring Vit K at present -Hgb downtrending from admission 9.4 to 8.1 to 8.2 today -Baseline Hgb 8-9 -Warfarin remains held -Monitor CBC, PT/INR (6) Hyperkalemia: Plan: -K 5.6 on admission -S/p fluid repletion -K downtrending to 5.3 at present -EKG does not demonstrate any peaked T waves or QRS widening -Monitor BMP (7) EKG abnormalities: Plan: -Initial admission EKG w/ diffuse changes suggesting STEMI, repeat did not show any acute ST changes -Negative troponin w/o chest pain -TTE w/o wall motion abnormalities -Initial EKG likely compromised by artifact (8) Diabetes mellitus, type 2: Plan: Hold metformin -Lantus, SSI (9) GERD (gastroesophageal reflux disease): Plan: -Continue daily PPI (10) Hx of prostatic malignancy: Plan: -History of radiation and Rezum. No known residual malignancy or metastasis -Recent history of hematuria s/p radiation with indwelling Duran -No acute management indicated (11) Hx of aortic aneurysm: Plan: s/p repair, stable for outpatient f/u Plan Chronic stable: Hypothyroidism, continue Synthroid. Free T4 is normal DVT prophylaxis: On warfarin which is currently supratherapeutic, held Disposition: PCU CODE STATUS: Full code Diet: DM 2, heart healthy Admission and Anticipated Discharge Date Admission Date: August 08, 2023 Supervising Physician Co-Signing Physician Notes I personally examined the patient and verified all saenz points of history and exam, discussed case, and agree with decision making with Dr Rios doing much better. fairly [place] so much of communication with family but all note pt doing much better, much more coherent etc. dtr notes infection ~a month ago. family all note poor PO intake vitals noted nad heent nc at mmm [place] breathing unlabored no accessory muscles good effort skin no rashes no pallor or icterus neuro no focal deficits sepsis - appears that he was severe sepsis/septic shock on admission (hypotension, VINICIUS on ACM5h-5, given confusion/incoherence probably septic encephalopathy) that is now improving. continue current care and follow closely, follow cultures failure to thrive/malnutrition (undefined, but suspect acutely severe) - extensive discussion on nutrition, consult head custodian coagulopathy - due to coumadin + sepsis - but with no bleeding will hold on vitamin K for now since mechanical valve (if any bleeding immediately KCentra and vitamin K) Subjective Acute events overnight- none. Pt examined at bedside. Reports feeling well/improved from admission, no particular dyspnea. He is having some productive cough with yellow mucus. Review of Systems Review of Systems: Per HPI/Subjective Physical Exam Physical Exam: General: Oriented to name and hospital. NAD. Cooperative. HEENT: Atraumatic, normocephalic. Vision/hearing intact, somewhat hard of hearing. Patient tends to mumble but with encouragement does speak clearly Pulm: Diminished diffusely with some L sided expiratory wheezing, no crackles b/l. On 4L nasal cannula Cardiac: RRR, holosystolic murmur at L middle sternal border Abdominal: Nontender, nondistended, soft. BS present Extremities: Warm, dry. Mild bilateral dorsal foot petechiae Skin: no other ecchymoses or petechiae noted Results & Data Results & Data Vital Signs (Past 12 Hours) Vital Signs Temp Pulse Pulse Resp BP BP Pulse Ox 08/09/23 07:15 36.4 C L 56 L 17 122/73 97 08/09/23 04:14 36.4 C L 65 17 110/55 L 97 08/09/23 00:13 36.4 C L 65 17 94/56 L 96 08/08/23 22:07 36.5 C 65 18 103/60 97 08/08/23 22:05 60 O2 Del Method O2 Flow Rate 08/09/23 07:15 Nasal Cannula 4 08/09/23 04:14 Nasal Cannula 4 08/09/23 00:13 Nasal Cannula 4 08/08/23 22:07 Nasal Cannula 3 08/08/23 22:05 Resident Activity Tracking Resident Involvement: Resident Care Provided Care Provided: Adult Hospital Medicine
[2023-08-09] MEDS ORDERED: ARIPIprazole 1 MG/ML ORAL SOLN 150 ML BTL PO SCH (09:00)
[2023-08-09] MEDS: AMIODARONE 200 MG TAB PO SCH (09:19)
[2023-08-09] MEDS: ARIPIprazole 1 MG/ML ORAL SOLN 150 ML BTL PO SCH (09:19)
[2023-08-09] MEDS: LEVOTHYROXINE SODIUM 75 MCG TABLET PO SCH (12:05)
--- NOTE | 2023-08-09 15:06 | Billing Data ---
Date of Service August 09, 2023 Coding Level of Care Code 01754 SUB INP/OBS CARE
--- NOTE | 2023-08-09 15:07 | Billing Data ---
Date of Service August 09, 2023 Coding Level of Care Code 00442 SUB INP/OBS CARE
[2023-08-09] MEDS: guaiFENesin 600 MG TABCR PO SCH (20:35)
--- NOTE | 2023-08-09 21:41 | Electrocardiogram Report ---
Test Reason : Blood Pressure : / mmHG Vent. Rate : 084 BPM Atrial Rate : 084 BPM P-R Int : 272 ms QRS Dur : 090 ms QT Int : 370 ms P-R-T Axes : 000 119 -13 degrees QTc Int : 437 ms Sinus rhythm with 1st degree A-V block Poor R wave progression, consider anterior [place] vs. lead placement vs. LVH T wave abnormality, consider inferior ischemia Abnormal ECG No previous ECGs available Confirmed by Kian Linares ([id number]) on 08/09/2023 9:41:09 PM Referred By: REFERRED SELF Confirmed By:Kian Linares
[2023-08-10] MEDS: ACETAMINOPHEN 325 MG TAB PO PRN (03:17)
[2023-08-10 08:03] LABS: Basophils # (auto) 0.04 K/uL (0.00-0.20); Basophils % (auto) 0.9 %; Eosinophils # (auto) 0.32 K/uL (0.00-0.50); Eosinophils % (auto) 7.2 %; Hemoglobin 8.7 g/dl (14.0-18.0); Immature Granulocytes # (auto) 0.02 K/uL (0.01-0.20); Immature Granulocytes % (auto) 0.5 %; Lymphocytes # (auto) 0.49 K/uL (1.20-3.40); Mean Corpuscular Hemoglobin 27.4 pg (25.0-34.0); Mean Corpuscular Volume 94.3 fL (80.0-100.0); Mean Platelet Volume 10.5 fL (9.4-12.4); Monocytes # (auto) 0.44 K/uL (0.11-0.59); Monocytes % (auto) 9.9 %; Neutrophils # (auto) 3.13 K/uL (1.40-6.50); Neutrophils % (auto) 70.5 %; Platelet Count 131 K/uL (130-400); RDW Coefficient of Variation 18.5 % (11.5-14.5); RDW Standard Deviation 63.7 fL (36.4-46.3); Red Blood Count 3.18 M/uL (4.70-6.10); White Blood Count 4.44 K/ul (4.8-10.8)
[2023-08-10 08:09] LABS: Albumin Level 3.4 gm/dl (3.4-5.0); BUN Creatinine Ratio 15.7 (10-20); Bilirubin,Total 0.6 mg/dl (0.2-1.0); Calcium 8.7 mg/dl (8.6-10.3); Creatinine Clr Calc Pharmacy 32.3 ml/min; Est GFR (African American) 36.7 ml/min; Est GFR (Non-African American) 31.6 ml/min; Globulin 3.5 gm/dl (2.5-4.0); Total Protein 6.9 gm/dl (6.0-8.3)
--- NOTE | 2023-08-10 09:36 | Hospitalist Progress Note ---
Date of Service August 10, 2023 Assessment & Plan (1) Sepsis: Plan: -Pt admitted for acute weakness and multiple symptoms concerning for infection such as rigor, chills, subjective fevers, hypotensive on admission -UA on admission suggests infection and known recent hematuria, now with indwelling Duran -CTAP w/ bladder wall thickening, moderate pleural effusions suggesting atelectasis. Similar CXR findings -Respiratory symptoms of dyspnea and productive cough x1 week -Associated acute hypoxic respiratory failure, currently improved and stable on 1L NC/RA -Due to atelectasis vs PNA, continue incentive spirometry + mucociliary clearance regimen -Suspect sepsis secondary to primarily UTI though possibly with pneumonia as well (lower likelihood) -Symptomatically improved with IVF and Zosyn- currently afebrile, no leukocytosis, hemodynamically stable -Continue Zosyn for now, plan for minimum 7 days of treatment (day 3/7) -BCx preliminary negative -UCx preliminary negative -Monitor CBC (2) Weakness: Plan: -Acute weakness likely secondary to infectious illness as above with chronic deconditioning as well -There is also a component of failure to thrive/malnutrition with recent progressive loss of oral intake -Sales Representative [employer] consulted, awaiting recommendations -Speech therapy consulted, awaiting recommendations -Will need PT/OT evaluation for anticipated possible placement, pending (3) CHF (congestive heart failure): Plan: -No reported previous history of CHF but is on Lasix 20 mg at home for fluid retention/peripheral edema -BNP 1277 on admission -TTE on admission- EF 55-60%, severe tricuspid regurgitation with moderately dilated RV -CXR on admission with b/l pleural effusions -Initially presented with intravascular volume depletion despite increased total body volume -Received fluid repletion in setting of sepsis -Deferring diuresis for now as euvolemic on exam (4) VINICIUS (acute kidney injury): Plan: -Cr 2.25 on admission (apparently baseline 1.7 - 2.25 per who discussed with admitting provider) -[facility] records pending -Likely pre-renal due to sepsis but there may be a component of renal hypoperfusion from poor forward flow as well -Improved to 1.98 today with fluid repletion + encouraging oral intake -Monitor BMP (5) S/P AVR: Plan: History of atrial fibrillation and medical/graphite aortic valve replacement Patient has trace petechiae in the feet bilaterally on admission which were new -Petechiae now resolving -No other sources of bleeding at present INR 5.8 on admission, increased to 8.8 and 8.0 today -Pt did take 5 mg warfarin on day prior to admission rather than 3 mg -Likely some elevation from sepsis as well -Deferring Vit K at present due to no active bleeding -Hgb 9.4 from admission, stable at 8.7 today -Baseline Hgb 8-9 -Warfarin remains held -Monitor CBC, PT/INR (6) Hyperkalemia: Plan: -K 5.6 on admission -S/p fluid repletion -K downtrending to 5.0 at present -EKG does not demonstrate any peaked T waves or QRS widening -Monitor BMP (7) EKG abnormalities: Plan: -Initial admission EKG w/ diffuse changes suggesting STEMI, repeat did not show any acute ST changes -Negative troponin w/o chest pain -TTE w/o wall motion abnormalities -Initial EKG likely compromised by artifact (8) Diabetes mellitus, type 2: Plan: Hold metformin -Lantus, SSI (9) GERD (gastroesophageal reflux disease): Plan: -Continue daily PPI (10) Hx of prostatic malignancy: Plan: -History of radiation and Rezum. No known residual malignancy or metastasis -Recent history of hematuria s/p radiation with indwelling Duran -No acute management indicated (11) Hx of aortic aneurysm: Plan: s/p repair, stable for outpatient f/u Plan Chronic stable: Hypothyroidism, continue Synthroid. Free T4 is normal DVT prophylaxis: On warfarin which is currently supratherapeutic, held Disposition: PCU CODE STATUS: Full code Diet: DM 2, heart healthy Admission and Anticipated Discharge Date Admission Date: August 08, 2023 Supervising Physician Co-Signing Physician Notes I personally examined the patient and verified all saenz points of history and exam, discussed case, and agree with decision making with Dr Rios notes that he feels lousy - fatigued. has been up and OOB, a few BMs, walked the halls, and just feels tired. notes chronic diarrhea ~5x/day since radiation Rx. vitals noted nad heent nc at mmm breathing unlabored no accessory muscles good effort skin no rashes no pallor or icterus sepsis - appears that he was severe sepsis/septic shock on admission (hypotension, VINICIUS on [id number]-9, given confusion/incoherence probably septic encephalopathy) improving nicely. on review abx were understandably started before cultures since he was so acutely/critically ill on arrival, but that will make it far less likely cx will show growth despite situation really being quite c/w UTI/sepsis picture chronic diarrhea - no significant constipation on CT, started post-radiation - give trial of metamucil failure to thrive/malnutrition (undefined, but suspect acutely severe) - 2/3 we had an extensive discussion on nutrition, consult crane chaser coagulopathy - due to coumadin + sepsis - but with no bleeding will hold on vitamin K for now since mechanical valve (if any bleeding immediately KCentra and vitamin K), INR 8 today fatigue - applauded how well pt doing today given circumstances. PT/OT eval and treat, might need rehab Subjective Acute events overnight- none. Pt examined at bedside. Reports feeling further improved from yesterday, no particular dyspnea and now off oxygen. Review of Systems Review of Systems: Per HPI/Subjective Physical Exam Physical Exam: General: Oriented to name and hospital. NAD. Cooperative. HEENT: Atraumatic, normocephalic. Vision/hearing intact (with hearing aids) Pulm: Less diminished than prior exam, no expiratory wheezes, no crackles b/l. On RA at time of exam Cardiac: RRR, holosystolic murmur at L middle sternal border Abdominal: Nontender, nondistended, soft. BS present Extremities: Warm, dry. Petechiae of dorsal feet b/l fading Skin: no other ecchymoses or petechiae noted Results & Data Results & Data Vital Signs (Past 12 Hours) Vital Signs Temp Pulse Pulse Resp BP BP Pulse Ox 08/10/23 07:25 36.7 C 72 149/71 H 93 08/10/23 03:24 36.4 C L 74 19 148/74 H 96 08/09/23 22:56 36.6 C 78 17 128/67 95 08/09/23 22:51 86 O2 Del Method O2 Flow Rate 08/10/23 07:25 Room Air 08/10/23 03:24 Nasal Cannula 1 08/09/23 22:56 Nasal Cannula 1 08/09/23 22:51 Resident Activity Tracking Resident Involvement: Resident Care Provided Care Provided: Adult Hospital Medicine
--- NOTE | 2023-08-10 16:53 | Billing Data ---
Date of Service August 10, 2023 Coding Level of Care Code 86903 SUB INP/OBS CARE
[2023-08-10] MEDS: PSYLLIUM or GUAR GUM FIBER POWDER PACKET PO SCH (17:09)
[2023-08-11 06:44] LABS: Hematocrit (blood only) 29.6 % (42.0-52.0); Hemoglobin 8.9 g/dl (14.0-18.0); Mean Corpuscular Hemoglobin 27.6 pg (25.0-34.0); Mean Corpuscular Hgb Conc 30.1 g/dL (32.0-36.0); Mean Corpuscular Volume 91.9 fL (80.0-100.0); Mean Platelet Volume 10.7 fL (9.4-12.4); Platelet Count 139 K/uL (130-400); RDW Coefficient of Variation 18.6 % (11.5-14.5); RDW Standard Deviation 62.4 fL (36.4-46.3); Red Blood Count 3.22 M/uL (4.70-6.10); White Blood Count 4.73 K/ul (4.8-10.8)
[2023-08-11 07:16] LABS: BUN Creatinine Ratio 14.6 (10-20); Creatinine Clr Calc Pharmacy 40.4 ml/min; Est GFR (African American) 48.2 ml/min; Est GFR (Non-African American) 41.6 ml/min
[2023-08-11 07:17] LABS: Prothrombin Time 70.7 Seconds (9.0-12.0)
[2023-08-11 07:31] LABS: INR 7.3 (0.9-1.1)
--- NOTE | 2023-08-11 07:36 | Hospitalist Progress Note ---
Date of Service August 11, 2023 Assessment & Plan (1) Sepsis: Plan: -Pt admitted for acute weakness and multiple symptoms concerning for infection such as rigor, chills, subjective fevers, hypotensive on admission -UA on admission suggests infection and known recent hematuria, now with indwelling Duran -CTAP w/ bladder wall thickening, moderate pleural effusions suggesting atelectasis. Similar CXR findings -Respiratory symptoms of dyspnea and productive cough x1 week -Associated acute hypoxic respiratory failure, currently improved and stable on room air -Due to atelectasis vs PNA, continue incentive spirometry + mucociliary clearance regimen -Suspect sepsis secondary to primarily UTI though possibly with pneumonia as well (lower likelihood) -Symptomatically improved with IVF and Zosyn- currently afebrile, no leukocytosis, hemodynamically stable -Continue Zosyn for now, plan for minimum 7 days of treatment (day 3/7). Of note cultures were collected after antibiotics were initiated. -BCx preliminary negative -UCx preliminary negative (2) Weakness: Plan: -Acute weakness likely secondary to infectious illness as above with chronic deconditioning as well -There is also a component of failure to thrive/malnutrition with recent progressive loss of oral intake -Police Communications Dispatcher consulted, and recommend dietary modifications to low fiber, heart healthy. Could consider lactose reduced if persistent diarrhea. Supplement with Gelatein plus once daily -Speech therapy consulted, and video swallow with scant silent aspiration recommending oral hygiene -PT/OT evaluation for anticipated possible placement, pending (3) CHF (congestive heart failure): Plan: -No reported previous history of CHF but is on Lasix 20 mg at home for fluid retention/peripheral edema -BNP 1277 on admission -TTE on admission- EF 55-60%, severe tricuspid regurgitation with moderately dilated RV -CXR on admission with b/l pleural effusions -Initially presented with intravascular volume depletion despite increased total body volume -Received fluid repletion in setting of sepsis -Deferring diuresis for now as euvolemic on exam (4) VINICIUS (acute kidney injury): Plan: -Cr 2.25 on admission (apparently baseline 1.7 - 2.25 per who discussed with admitting provider) -[facility] records pending -Likely pre-renal due to sepsis but there may be a component of renal hypoperfusion from poor forward flow as well -Overall downtrending after IVF/PO intake creatine= 1.58 2/5 -Monitor BMP (5) S/P AVR: Plan: History of atrial fibrillation and medical/graphite aortic valve replacement Patient has trace petechiae in the feet bilaterally on admission which were new -Petechiae now resolving -No other sources of bleeding at present INR 5.8 on admission, increased to 8.8; now downtrending- INR= 7.3 2/5 -Pt did take 5 mg warfarin on day prior to admission rather than 3 mg -Likely some elevation from sepsis as well -Deferring Vit K at present due to no active bleeding -Hgb remains stable at 8.9 -Baseline Hgb 8-9 -Warfarin remains held -Monitor CBC, PT/INR (6) Hyperkalemia: Plan: -K 5.6 on admission -S/p fluid repletion -K downtrending to 5.0 at present -EKG does not demonstrate any peaked T waves or QRS widening -Monitor BMP (7) EKG abnormalities: Plan: -Initial admission EKG w/ diffuse changes suggesting STEMI, repeat did not show any acute ST changes -Negative troponin w/o chest pain -TTE w/o wall motion abnormalities -Initial EKG likely compromised by artifact (8) Diabetes mellitus, type 2: Plan: Hold metformin -Lantus, SSI (9) GERD (gastroesophageal reflux disease): Plan: -Continue daily PPI (10) Hx of prostatic malignancy: Plan: -History of radiation and Rezum. No known residual malignancy or metastasis -Recent history of hematuria s/p radiation with indwelling Duran -No acute management indicated (11) Hx of aortic aneurysm: Plan: s/p repair, stable for outpatient f/u (12) Diarrhea: Plan: - began after radiation treatments, predates current antibiotic use - would consider stool studies if it does not continue to improve Plan Chronic stable: Hypothyroidism, continue Synthroid. Free T4 is normal DVT prophylaxis: On warfarin which is currently supratherapeutic, held Disposition: PCU CODE STATUS: Full code Diet: DM 2, heart healthy Admission and Anticipated Discharge Date Admission Date: August 08, 2023 Supervising Physician Co-Signing Physician Notes Attending Physician Supervision Note: I independently interviewed and examined the patient and verified the saenz histor y and physical, reviewed labs and image studies and agree with findings and care plan noted above. no concerns this am. 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 --Vitals stable. creatinine improving. --cultures negative. UA with no WBC - urine culture done after dose of abx. --No procalcitonin drawn. --presentation could possibly be d/t volume contraction from chronic diarrhea in setting of ? cognitive deficit. Probable UTI with chronic indwelling catheter/h/o prostate ca --UA with no wbc. cultures done after dose of antibiotics. --with no fever and serum wbc stable - will narrow abx coverage to rocephin. chronic diarrhea - chronic diarrhea ~5x/day since radiation Rx. no significant constipation on CT. trial of metamucil failure to thrive/malnutrition (undefined, but suspect acutely severe) - consulted student officer coagulopathy - warfarin for mechanical valve + amiodarone. no bleeding. INR down to 7.3. if any bleeding immediately KCentra and vitamin K) Concern of cognitive deficit - follow fatigue - PT/OT eval and treat, might need rehab Subjective Pt seen at bedside this morning. No events overnight. Notes that he comes to have loose BM. Has been having loose BM since radiation treatment. Denies blood in stool. Still notes significant fatigue, but improving. Review of Systems Review of Systems: As per above Physical Exam Physical Exam: Constitutional: well-appearing, no acute distress HEENT: NCAT, no conjunctival injection CV: regular rhythm, no murmur appreciated, extremities well-perfused, no LE edema Resp: CTABL, no wheezes/rales/rhonchi appreciated, no increased work of breathing GI: soft, nondistended, nontender : + Duran catheter MSK: no gross deformities appreciated Skin: warm, dry, no rash appreciated Neuro: alert, oriented, no focal neurologic deficit appreciated Results & Data Results & Data Vital Signs (Past 12 Hours) Vital Signs Temp Pulse Pulse Resp BP BP Pulse Ox 08/11/23 03:05 36.3 C L 76 18 161/83 H 92 08/10/23 23:02 36.5 C 82 20 143/73 H 93 08/10/23 22:00 82 08/10/23 20:45 08/10/23 19:37 36.7 C 86 20 168/90 H 94 O2 Del Method 08/11/23 03:05 Room Air 08/10/23 23:02 Room Air 08/10/23 22:00 08/10/23 20:45 Room Air 08/10/23 19:37 Room Air Resident Activity Tracking Resident Involvement: Resident Care Provided Care Provided: Adult Hospital Medicine
[2023-08-11] MEDS: PIPER/TAZO 4.5g in D5W MINI-B 100 ML IV ONE (08:39)
--- NOTE | 2023-08-11 12:13 | Electrocardiogram Report ---
Test Reason : Blood Pressure : / mmHG Vent. Rate : 090 BPM Atrial Rate : 090 BPM P-R Int : 172 ms QRS Dur : 096 ms QT Int : 378 ms P-R-T Axes : 013 -04 059 degrees QTc Int : 462 ms Normal sinus rhythm Possible Anteroseptal infarct , age undetermined (cited on or before 10-AUG-2023) Abnormal ECG When compared with ECG of 08-AUG-2023 10:58, RI interval has decreased Criteria for Septal infarct now present T wave inversion no longer evident in Inferior leads Confirmed by Flex Castañeda ([id number]) on 08/11/2023 12:12:45 PM Referred By: REFERRED SELF Confirmed By:Flex Castañeda
[2023-08-11] MEDS: PIPERACILLIN/TAZOBACTAM 4.5 GM in DEXTROSE 5% MINI-B 100 ML IV SCH (13:28)
--- NOTE | 2023-08-11 14:01 | Fluoroscopy Report ---
FL video swallow CLINICAL HISTORY: 78 years-old Male with r/o aspiration. Dysphagia with possible aspiration TECHNIQUE: Video fluoroscopic evaluation of swallowing was performed in the AP and lateral projection s by the speech pathology staff. The patient is fed varying consistencies of barium. FLUOROSCOPY TIME: 2.2 minutes. 4061 images. 6.16 mGy COMPARISON STUDY: None. FINDINGS: Silent aspiration with thin liquid barium. Residue noted within the vallecula throughout th e study. No additional aspiration identified. There is mildly abnormal hyoid excursion and epiglottic deflection. IMPRESSION: 1. Silent aspiration with thin liquid barium. 2. Please see the speech pathologist report for detailed findings and recommendations. ACT 112: Negative or not required by law. Electronically signed by: Paul Reyna M.D. 08/11/2023 1:59 PM
[2023-08-11] MEDS: cefTRIAXone SODIUM 1,000 MG in DEXTROSE 5 % MINI-B 50 ML IV SCH (21:06)
--- NOTE | 2023-08-12 07:08 | Hospitalist Progress Note ---
Date of Service August 12, 2023 Assessment & Plan (1) Sepsis: Plan: -Pt admitted for acute weakness and multiple symptoms concerning for infection such as rigor, chills, subjective fevers, hypotensive on admission -UA on admission suggests infection and known recent hematuria, now with indwelling Duran -CTAP w/ bladder wall thickening, moderate pleural effusions suggesting atelectasis. Similar CXR findings -Respiratory symptoms of dyspnea and productive cough x1 week -Associated acute hypoxic respiratory failure, currently improved and stable on room air -Due to atelectasis vs PNA, continue incentive spirometry + mucociliary clearance regimen -Suspect sepsis secondary to primarily UTI though possibly with pneumonia as well (lower likelihood) -Symptomatically improved with IVF and Zosyn- currently afebrile, no leukocytosis, hemodynamically stable -Continue Zosyn for now, plan for minimum 7 days of treatment (day 3/7). Of note cultures were collected after antibiotics were initiated. -BCx preliminary negative -UCx preliminary negative (2) Weakness: Plan: -Acute weakness likely secondary to infectious illness as above with chronic deconditioning as well -There is also a component of failure to thrive/malnutrition with recent progressive loss of oral intake -Health And Safety Instructor consulted, and recommend dietary modifications to low fiber, heart healthy. Could consider lactose reduced if persistent diarrhea. Supplement with Gelatein plus once daily -Speech therapy consulted, and video swallow with scant silent aspiration recommending oral hygiene -PT/OT evaluation for anticipated possible placement, pending (3) CHF (congestive heart failure): Plan: -No reported previous history of CHF but is on Lasix 20 mg at home for fluid retention/peripheral edema -BNP 1277 on admission -TTE on admission- EF 55-60%, severe tricuspid regurgitation with moderately dilated RV -CXR on admission with b/l pleural effusions -Initially presented with intravascular volume depletion despite increased total body volume -Received fluid repletion in setting of sepsis -Deferring diuresis for now as euvolemic on exam (4) VINICIUS (acute kidney injury): Plan: -Cr 2.25 on admission (apparently baseline 1.7 - 2.25 per who discussed with admitting provider) -[facility] records pending -Likely pre-renal due to sepsis but there may be a component of renal hypoperfusion from poor forward flow as well -Overall downtrending after IVF/PO intake creatine= 1.58 2/5 -Monitor BMP (5) S/P AVR: Plan: History of atrial fibrillation and medical/graphite aortic valve replacement Patient has trace petechiae in the feet bilaterally on admission which were new -Petechiae now resolving -No other sources of bleeding at present INR 5.8 on admission, increased to 8.8; now downtrending- INR= 7.3 2/5 -Pt did take 5 mg warfarin on day prior to admission rather than 3 mg -Likely some elevation from sepsis as well -Deferring Vit K at present due to no active bleeding -Hgb remains stable at 8.9 -Baseline Hgb 8-9 -Warfarin remains held -Monitor CBC, PT/INR (6) Hyperkalemia: Plan: -K 5.6 on admission -S/p fluid repletion -K downtrending to 5.0 at present -EKG does not demonstrate any peaked T waves or QRS widening -Monitor BMP (7) EKG abnormalities: Plan: -Initial admission EKG w/ diffuse changes suggesting STEMI, repeat did not show any acute ST changes -Negative troponin w/o chest pain -TTE w/o wall motion abnormalities -Initial EKG likely compromised by artifact (8) Diabetes mellitus, type 2: Plan: Hold metformin -Lantus, SSI (9) GERD (gastroesophageal reflux disease): Plan: -Continue daily PPI (10) Hx of prostatic malignancy: Plan: -History of radiation and Rezum. No known residual malignancy or metastasis -Recent history of hematuria s/p radiation with indwelling Duran -No acute management indicated (11) Hx of aortic aneurysm: Plan: s/p repair, stable for outpatient f/u (12) Diarrhea: Plan: - began after radiation treatments, predates current antibiotic use - would consider stool studies if it does not continue to improve Plan Chronic stable: Hypothyroidism, continue Synthroid. Free T4 is normal DVT prophylaxis: On warfarin which is currently supratherapeutic, held Disposition: PCU CODE STATUS: Full code Diet: DM 2, heart healthy Admission and Anticipated Discharge Date Admission Date: August 08, 2023 Subjective Pt seen at bedside this morning. No events overnight. Notes that he comes to have loose BM. Has been having loose BM since radiation treatment. Denies blood in stool. Still notes significant fatigue, but improving. Review of Systems Review of Systems: As per above Results & Data Results & Data Vital Signs (Past 12 Hours) Vital Signs Temp Pulse Pulse Resp BP BP Pulse Ox 08/12/23 03:50 36.4 C L 80 18 160/81 H 93 08/11/23 23:26 36.4 C L 76 18 145/78 H 92 08/11/23 22:00 84 08/11/23 21:16 08/11/23 19:33 36.9 C 86 18 167/87 H 94 O2 Del Method 08/12/23 03:50 Room Air 08/11/23 23:26 Room Air 08/11/23 22:00 08/11/23 21:16 Room Air 08/11/23 19:33 Room Air
[2023-08-12 07:15] LABS: Hematocrit (blood only) 29.6 % (42.0-52.0); Hemoglobin 8.8 g/dl (14.0-18.0); Mean Corpuscular Hemoglobin 27.6 pg (25.0-34.0); Mean Corpuscular Hgb Conc 29.7 g/dL (32.0-36.0); Mean Corpuscular Volume 92.8 fL (80.0-100.0); Platelet Count 134 K/uL (130-400); RDW Coefficient of Variation 18.5 % (11.5-14.5); RDW Standard Deviation 63.3 fL (36.4-46.3); Red Blood Count 3.19 M/uL (4.70-6.10); White Blood Count 4.25 K/ul (4.8-10.8)
[2023-08-12 07:31] LABS: BUN Creatinine Ratio 12.6 (10-20); Calcium 8.8 mg/dl (8.6-10.3); Creatinine Clr Calc Pharmacy 44.7 ml/min; Est GFR (African American) 54.4 ml/min; Est GFR (Non-African American) 46.9 ml/min; Magnesium 1.6 mg/dl (1.7-2.4); Potassium 5.1 mmol/L (3.5-5.1)
[2023-08-12 07:40] LABS: Prothrombin Time 57.8 Seconds (9.0-12.0)
[2023-08-12 08:09] LABS: INR 5.9 (0.9-1.1)
[2023-08-12] MEDS: MAGNESIUM SULFATE / D5W 1 GM/100 ML BAG IV ONE (08:45)
--- NOTE | 2023-08-12 17:58 | Discharge Summary ---
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 Per ER: P resented on referral from urology services wWhile in the urology office patient was weak, fatigued, and had an episode of active rigors and patient reported 1 episode of vomiting and diarrhea preceding this. He was referred to the ER for further care. His INR which was compared to 3 days ago which was 2.9 has risen to 5.6. His hemoglobin past baseline is approximately 89, hemoglobin 9.4 on admission without bleeding. Inferior T wave inversions were noted on EKG but patient has been without any chest pain.? Aspiration event, patient was recommended for evaluation of weakness with differential including aspiration pneumonia versus cystitis. On review bio fire is negative, moderate pleural effusions are noted, BNP is elevated. Troponin is normal and head CT is normal. Patient received 500 cc NSS x 1, 500 cc NSS x 1, and maintenance NSS at 125 cc/h while in the ER. CT of the abdomen pelvis is with thickening and surrounding inflammation concerning for UTI. Liver is with cirrhotic changes, moderate ascites and splenomegaly are noted, moderate pleural effusions with dependent consolidation suspected to be atelectasis are noted. Nonobstructive renal calculi are present. Per patient/: Papito is seen at the bedside with his present. Papito reports he was he was arielle to get his catheter removed at urology today. Indwelling catheter for hematuria post prostate cancer radiation tx and follows with Dr. Soto Pt felt feverish, shaking shivers and chills this morning and today. Shaking chills/rigors while in urology office and referred to ER [place] very cold the entire ride her from [place] Minimal PO intake and appetite the last few days +Nausea for a few days. Endorses shortness of breath in the past week. Deneis dysuria. Denies cough. denies chest pain or chest pressure. Endorses shortness of breath with exertion and easy fatigue. No nausea/vomiting/diarrhea Pt has had very little to eat/drink for at least the last 2-3 days. UOP decreased and dark, but recently returned from so is not sure for how long pt has been ill thinks 2-3 days. Denies increased leg swelling, does have ankle swelling present. New petechial rash in feet unsure of how long this has been present denies rash denies tick bites Sees Sho Bowman with [facility] who i shis PCP, records pending Per /record review on phone: Hx of aortic metal/graphite heart valve on warfin. Hx of cervical fxr which healed but does have some residual pain Hx of aortic anuerysm 2.5years ago s/p vascular repair at 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 Hx of bladder hematuria persistent due to radiation, s/p marvin placement. Was seen in [facility] for this. Was told he has no residual cancer and no mets. MedHx: Denies hx NE, Does take fluid pills, reports this is for edema and lung fluid but denies heart failure. hx T2DM --> takes metformin. Hypothyroidism on synthroid Had afib around his aneurysm. Is on amiodarone which was decreased to a half pil l once daily recently per pts . On warfarin for this and hx of metal/graphite AVR Pt notes Petechiae of the feet bilaterally x2 days ventral hernia, known no change, no pain Itching excoriation from dry skin Meds Review by Pts phone: Metoprolol 1 tab 25mg, flomax 0.4mg at night, fenofibric acid daily, lasix 20mg daily am, metformin 1g AM amiodarine 100 (changed from 200) daily ability 2mg 1 tab qAM for depression/panic Took pills this morning but 1x episode of emesis. Noon: synthroid 75mg 2 hours after eating 5pm: Iron 325mg + Vitamin C chewable Metformin 1g protonix 20mg Warfarin 2mg 3mg otherwise had 5mg of coumadin yesterday for INR 1.0 8p: Metoprolol 25 mg x2 tabs (50mg total) Flomax 0.4mg 2 tabs sertraline 100mg x1 Vitamin D3 50mcg, B1 1000mg chewables. Cephalexin 2x 500mg BID for cellulitis x2 days Medical History: Reviewed Medications: Reviewed. Had a recation to [facility] in the past. Surgical History: Reviewed Family history: Reviewed Allergies: Reviewed Social History: no tobacco or etoh Code Status: Full Code. Would not want prolonged intubation/ventilation for more than a few days. Principal Diagnosis Hypotension Discharge Exam Constitutional: well-appearing, no acute distress HEENT: NCAT, no conjunctival injection CV: regular rhythm, no murmur appreciated, extremities well-perfused Resp: CTABL, no wheezes/rales/rhonchi appreciated, no increased work of breathing MSK: no gross deformities appreciated Skin: warm, dry, no rash appreciated Neuro: alert, oriented, no focal neurologic deficit appreciated Discharge Data Allergies Allergy/AdvReac Type Severity Reaction Status Date / Time plasma Allergy Severe frozen Uncoded 04/22/23 14:50 plasma - developed hives Ordered Studies 08/08/23 11:51 CT Abd and Pelvis [CT abd pelvis wo con] Stat 08/08/23 12:37 CT head/brain wo con Stat 08/11/23 12:35 FL video swallow Routine Hospital Course (1) Sepsis: -Pt admitted for acute weakness and multiple symptoms concerning for infection such as rigor, chills, subjective fevers, hypotensive on admission - cirrhosis noted on imagining, likely contributing factor to hypotension in the setting of diarrhea and dehydration -BCx preliminary negative -UCx preliminary negative -UA on admission suggests infection and known recent hematuria, now with indwelling Marvin -CTAP w/ bladder wall thickening, moderate pleural effusions suggesting atelectasis. Similar CXR findings -Was treated with antibiotics x 5 days prior to d/c for UTI vs PNA . (2) Cirrhosis: - noted on imaging, no prior diagnosis - mild transaminitis - should get established with GI as an outpatient (3) Weakness: -Acute weakness likely secondary to infectious illness as above with chronic deconditioning as well -There is also a component of failure to thrive/malnutrition with recent progressive loss of oral intake -Beauty Therapist consulted, and recommend dietary modifications to low fiber, heart healthy. Could consider lactose reduced if persistent diarrhea. Supplement with Gelatein plus once daily -Speech therapy consulted, and video swallow with scant silent aspiration recommending oral hygiene -PT/OT evaluation recommending home (4) CHF (congestive heart failure): -No reported previous history of CHF but is on Lasix 20 mg at home for fluid retention/peripheral edema -BNP 1277 on admission -TTE on admission- EF 55-60%, severe tricuspid regurgitation with moderately dilated RV -CXR on admission with b/l pleural effusions -Initially presented with intravascular volume depletion despite increased total body volume -Received fluid repletion in setting of sepsis -euvolemic on exam on exam prior to d/c; hold furosimide until PCP f/u (5) VINICIUS (acute kidney injury): -Cr 2.25 on admission (apparently baseline 1.7 - 2.25 per who discussed with admitting provider) -Resolved and back to baseline to prior to d/c (6) S/P AVR: History of atrial fibrillation and medical/graphite aortic valve replacement INR 5.8 on admission, increased to 8.8; now downtrending- INR= 5.9 on day of d/c - will hold Coumadin and check daily home INR, call PCP with results and restart Coumadin when appropriate (7) Hyperkalemia: -K 5.6 on admission, EKG does not demonstrate any peaked T waves or QRS widening - normalized prior to d/c with fluid repletion (8) EKG abnormalities: -Initial admission EKG w/ diffuse changes suggesting STEMI, repeat did not show any acute ST changes -Negative troponin w/o chest pain -TTE w/o wall motion abnormalities -Initial EKG likely compromised by artifact (9) Diabetes mellitus, type 2: - resume hold metformin, if diarrhea worsened would consider switch to different medication for diabetes (10) GERD (gastroesophageal reflux disease): -Continue daily PPI (11) Hx of prostatic malignancy: -History of radiation and Rezum. No known residual malignancy or metastasis -Recent history of hematuria s/p radiation with indwelling Marvin -Needs f/u with urology for trial of voiding (12) Hx of aortic aneurysm: s/p repair, stable for outpatient f/u (13) Diarrhea: - began after radiation treatments, predates current antibiotic use; improving prior to d/c Total Time Total Time Spent Total Time Spent (In Minutes): see attending attestation Discharge Plan Discharge Items Patient Disposition: Home - Self-Care Reason For Visit: SEPSIS, CHF Discharge Diagnosis: Dehydration Activity: Per Instructions section Non-emergency contact: Primary Care Provider Call non-emergency contact if: you have any medication questions, your symptoms worsen and you have a fever Follow-up/Referrals: Sho Bowman DO [Primary Care Provider] - (please call to schedule this apt ) Lawson Soto MD [Physician] - Diet: Regular and Low Fiber Addtl Attending Provider Instructions: You were admitted with low blood pressures, likely due to lack of fluid intake. We treated you with IV fluids and you have shown good improvement. There is low suspicion for infection at this time, so you will not require antibiotics in the outpatient setting. Please hold your furosemide until you follow up with your primary care doctor. You had some kidney injury on admission likely due to lack of fluid intake. This has improved with fluid repletion. You should leave the urinary catheter in place for now and follow up with urology. I have requested a follow-up appointment with them, so their office should reach out to you to get this scheduled. If you do not hear from them, please call their office to make an appointment. You should also call your primary care doctor to make a follow up appointment. There is concern for Cirrhosis of your liver based on your recent CT imaging. Please discuss further with your PCP and consider followup with Gastroenterology in outpatient. You INR was elevated. This value can be influenced by your liver function. We have been holding you Warfarin. You should continue to hold your Warfarin and check your INR daily at home, you may resume warfarin once your INR is between 2.5-3.5 again. Please call your PCP with these numbers so that she can adjust accordingly. Your diarrhea may be in part due to lack of food intake. Please try to maintain regular meals and hydration, and use fiber supplements to thicken your stool. Of note you are on Metformin at home, which is metabolized in the liver and can also contribute to diarrhea. Please discuss with your PCP about diabetes management and possibly reducing your metformin prescription. Based on your swallow study in the hospital, you are ok to drink regular water. Please remember to sit upright, keep your chin down, and swallow multiple times to prevent water going down the wrong pipe. If you drink running water from outdoors, please remember to boil it first. You may continue to get iron infusions in the outpatient setting. Contact your PCP if you experience the following: -persistent diarrhea, loss of appetite, fatigue -persistent itching, blood in stool Pending Studies at Discharge: No Stand-Alone Forms: My [facility], Smoking Cessation Medications and DC Order Prescriptions: Continued amiodarone 200 mg tablet 100 mg PO QAM cholecalciferol (vitamin D3) 50 mcg (2,000 unit) capsule 50 mcg PO .@1999 cholestyramine (with sugar) 4 gram powder 0.5 ea PO UD PRN (Reason: Diarrhea) Rx Instructions: unable to verify clonazepam 0.5 mg tablet 0.5 mg PO DAILY PRN (Reason: Anxiety) Rx Instructions: unable to verify fenofibric acid (choline) 135 mg capsule,delayed release(DR/EC) 135 mg PO QAM hydrocortisone acetate 1 % cream 1 applic topical BID PRN (Reason: Skin Irritation) Rx Instructions: unable to verify metformin 1,000 mg tablet 1,000 mg PO BID metoprolol tartrate 25 mg tablet 50 mg PO .@1999 pantoprazole 40 mg tablet,delayed release (DR/EC) 40 mg PO .@1699 aripiprazole [Abilify] 2 mg tablet 2 mg PO QAM simethicone 125 mg capsule 125 mg PO DAILY PRN (Reason: gas pain) Rx Instructions: unable to verify sertraline 100 mg Tablet 100 mg PO .@1999 metoprolol tartrate 25 mg Tablet 25 mg PO QAM tamsulosin 0.4 mg capsule 0.4 mg PO .@1999 levothyroxine 50 mcg tablet 75 mcg PO .NOON Iron 325mg + Vit C Chewable See Rx Instructions .ROUTE .COMPLEX Rx Instructions: as directed @ 5PM Thiamine B1 Chewable 1,000 mg PO .@1999 Held furosemide 20 mg tablet 20 mg PO QAM Hold Instructions: Hold until follow up with PCP warfarin 2 mg tablet See Rx Instructions .ROUTE .COMPLEX Hold Instructions: Hold until follow up INR in 2 days. Rx Instructions: 3 mg daily except on Wednesdays (at 5pm) Friday 2 mg (took 5 mg 08/07/23) Discontinued enoxaparin [Lovenox] 80 mg/0.8 mL Syringe 80 mg SUBCUT UD PRN (Reason: upcoming surgery) Rx Instructions: unable to verify cephalexin 500 mg Capsule See Rx Instructions .ROUTE .COMPLEX Rx Instructions: 2 x 500 mg BID Discharge Orders: Discharge Order (Routine); Ordered 08/12/23 Ordered By: Sherrell Her Admission Data Admit Date/Time: 08/08/23 16:29 Attending Provider: Gricelda Denise Admit Provider: Christopher Henao Primary Care Provider: Sho Bowman Other Providers: Bismark Helm Other Interventions: Discharge Summary Assessment (RN) Last Done: 08/12/23 16:31 Supervising Physician Co-Signing Physician Notes Attending Physician Supervision Note: I independently interviewed and examined the patient and verified the saenz history and physical, reviewed labs and image studies and agree with findings and care plan noted above. no concerns this am. more alert. vitals noted nad heent nc at mmm breathing unlabored no accessory muscles good effort skin no rashes no pallor or icterus VINICIUS with CKD3b/Hypotension/metabolic encephalopathy - Sepsis ruled out. --BP improved. creatinine almost at baseline with fluid resuscitation. --cultures negative. --presentation likely be d/t volume contraction from chronic diarrhea in setting of poor PO intake from ? cognitive deficit. UTI - ruled out with negative culture, no WBC on UA and normal procalcitonin. abx d/nell on discharge. chronic diarrhea - chronic diarrhea ~5x/day since radiation Rx. no significant constipation on CT. failure to thrive/malnutrition (undefined, but suspect acutely severe) - consulted machine bunch maker -concern of aspiration - extensive education done for the family by speech therapy coagulopathy - warfarin for mechanical valve + amiodarone. no bleeding. INR down to 5. further follow up as outpatient. Cirrhosis - noted on CT scan. pcp to further follow up on it. would contribute to poorer overall prognosis Concern of cognitive deficit - follow Chronic marvin - prostate ca and radiation treatment induced urinary retention fatigue - PT/OT eval - stable for d/c home. consider goals of care discussion with primary care. Resident Activity Tracking Resident Involvement: Resident Care Provided Care Provided: Adult Hospital Medicine
== END 2023-08-12 16:32 | disposition home or self-care (01) | DRG 871 ==
LOC: ED 10:15 → SUATTDRO 16:29 → EDINP 16:29 → 2S 18:02

== ENCOUNTER 2023-08-31 12:41 | Inpatient (IN) ==
--- NOTE | 2023-08-31 13:52 | Emergency Department Note ---
Impression & Plan Generalized weakness, Anemia, Acute dehydration, Urinary tract infection, Pleural effusion, Acute alteration in mental status ED Provider Note NAME: IGLESIA VILLARREAL AGE: 78 SEX: M : 1945 ARRIVES VIA: Walk-In INFORMANT: Patient, the patient's significant other ED PROVIDER(S): Randall Wallace DO CHIEF COMPLAINT: Weakness HPI: The patient is a 78-year-old male who was recently diagnosed with nonalcoholic cirrhosis who presented to the emergency department for an evaluation of generalized weakness. The patient has had decreased p.o. intake. The patient has had malaise. The patient has been noticing trouble breathing as well as abdominal distention. The patient has had no rectal bleeding. The patient's had no fever but he has had episodes of vomiting. The patient denies having any headaches or recent falls. He does take Coumadin. ROS: See above HPI for pertinent positives & negatives. A total of 10 systems reviewed and were otherwise negative. PAST MEDICAL HISTORY: See Below PAST SURGICAL HISTORY: See Below FAMILY HISTORY: See Below SOCIAL HISTORY: See Below HOME MEDICATIONS: See Below ALLERGIES: See Below VITALS: See Below PHYSICAL EXAMINATION: GENERAL: The patient is awake but listless. He does respond to questions but slowly. EYES: The conjunctivae are clear. The pupils are round and reactive. EARS, NOSE, MOUTH AND THROAT: Mucous membranes are dry. There is a small abrasion across the bridge of the nose. NECK: The neck is nontender and supple. RESPIRATORY: Shallow respirations were noted. There were diminished breath sounds at both bases. CARDIOVASCULAR: Metallic click was noted to auscultation. There was no tachycardia noted to auscultation. GASTROINTESTINAL: The abdomen is distended. There is no guarding or rigidity appreciated. MUSCULOSKELETAL/EXTREMITIES: There is no evidence of gross deformity full range of motion is noted in the hips and shoulders. SKIN: Chronic venous stasis changes were noted. Skin is warm and dry. NEUROLOGIC: Patient is awake and oriented x3 MEDICAL DECISION MAKING: The patient is a 78-year-old male who presented to the emergency department with his significant other for an evaluation. The patient was recently diagnosed with nonalcoholic cirrhosis. The patient has been living at home but not doing well. He has had decreased p.o. intake. The patient was treated with IV fluids in the emergency department. He was also treated with IV antibiotics for presumed urinary tract infection. I discussed patient's laboratory and radiographic studies with him. Many of his labs are abnormal but they appear to be baseline for him. Given his findings I did recommend inpatient management. I discussed his condition with the on-call [facility] hospitalist. They have agreed to evaluate the patient in the emergency department for further management and disposition. Triage Nursing notes reviewed. Prior medical records reviewed Vital Signs: reviewed and remarkable for no significant abnormalities Differential diagnosis: Infection, dehydration, metabolic abnormality, hypo/hyperglycemia, electrolyte disturbance, anemia, hypoxia, cardiac sources, intracerebral event, toxicologic, neurologic, as well as other pathologies. ER treatment provided: See below Diagnostics interpreted by me: ECG: EKG was obtained in the emergency department. My interpretation is sinus rhythm at 64 bpm. Low voltage with first-degree AV block was noted. Nonspecific ST segment abnormalities were noted. This was compared to a tracing from August 10, 2003. No significant changes were noted. Cardiac Monitoring: An order was placed for continuous cardiac monitoring. The monitor shows a rate of 66 bpm with sinus rhythm. Laboratory studies: As stated above and show below. Imaging studies: See below. Radiographic imaging was reviewed by myself Consultation(s): I discussed this case with Dr. Delgado who is on-call for the [facility] group. Past Med/Surg History Medical History Indwelling Duran catheter present Diabetes mellitus, type 2 NIDDM Osteoarthritis GERD (gastroesophageal reflux disease) Anxiety Hx of prostatic malignancy Spring 2020 Treated with radiation treatments Hx of aortic aneurysm s/p107/2020 in [facility] Follows with [facility] Hypertension Suspected sleep apnea History of COVID-19 x2 Most recent home test positive 10/13/22- asymptomatic (tested d/t family members were positive) History of fractured vertebra Cervical fracture 11/18/21- medical management recommended, follows with physical therapy, "full ROM" per patient Surgical History History of flexible sigmoidoscopy History of colonoscopy History of cholecystectomy History of appendectomy History of prostate surgery to stop prostate bleeding in Summer 2020 History of aortic aneurysm repair 05/2021 in [facility] Follows with [facility] H/O heart surgery graphite aortic valve placed in [place] at age 44. ([facility]) Family History Mother Diabetes Hypertension Father Diabetes Other No family history of adverse response to anesthesia Social History Smoking Status: Never smoker Second Hand Exposure: No; Do You Dip or Chew Tobacco: No; Hx Alcohol Use: No Hx Substance Use: No Preferred Language: Taiwanese Communication Ability: Effective Patient Financial Coordinator Required: No Beliefs That Will Affect Care: Holiness marital status: Current Living Situation: Spouse current occupational status: retired Feels Safe at Home: Yes Assistive Devices: Walker Allergies Allergies Allergy/AdvReac Type Severity Reaction Status Date / Time plasma Allergy Severe frozen Uncoded 08/31/23 14:08 plasma - developed hives Home Meds Home Medications Medication Instructions Recorded Confirmed amiodarone 200 mg tablet 100 mg PO QAM 10/07/22 08/31/23 cholecalciferol (vitamin D3) 50 50 mcg PO .@199910/07/22 08/31/23 mcg (2,000 unit) capsule clonazepam 0.5 mg tablet 0.5 mg PO DAILY PRN Anxiety 10/07/22 08/31/23 fenofibric acid (choline) 135 mg 135 mg PO QAM 10/07/22 08/31/23 capsule,delayed release furosemide 20 mg tablet 0 mg PO QAM 10/07/22 08/31/23 hydrocortisone acetate 1 % topical 1 applic topical BID PRN Skin 10/07/22 08/31/23 cream Irritation metformin 1,000 mg tablet 0 mg PO BID 10/07/22 08/31/23 metoprolol tartrate 25 mg tablet 50 mg PO .@199910/07/22 08/31/23 pantoprazole 40 mg tablet,delayed 40 mg PO .@169910/07/22 08/31/23 release aripiprazole 2 mg tablet (Abilify) 2 mg PO QAM 11/14/22 08/31/23 simethicone 125 mg capsule 125 mg PO DAILY PRN gas pain 11/14/22 08/31/23 metoprolol tartrate 25 mg tablet 25 mg PO QA 11/25/22 08/31/23 sertraline 100 mg tablet 100 mg PO .@199911/25/22 08/31/23 tamsulosin 0.4 mg capsule 0.4 mg PO .@199911/25/22 08/31/23 ferrous fumarate-vitamin C 66 1 tab PO 3XWK ##0 08/08/23 08/31/23 mg-125 mg chewable tablet warfarin 2 mg tablet 3 mg PO DAILY 08/08/23 08/31/23 cyanocobalamin (vitamin B-12) 1,000 mcg PO DAILY 08/31/23 08/31/23 1,000 mcg tablet (Vitamin B-12) levothyroxine 75 mcg tablet 75 mcg PO .NOON 08/31/23 08/31/23 (Synthroid) mirtazapine 7.5 mg tablet 15 mg PO HS 08/31/23 08/31/23 Results & Data (ED) Vital Signs Vital Signs - 24 hr 08/31/23 12:47 08/31/23 13:38 Temperature 36.9 C Temperature Source Oral Pulse Rate 69 66 Pulse Rhythm Regular Respiratory Rate 18 22 Blood Pressure 103/63 Blood Pressure Mean 76 Pulse Oximetry 96 95 Oxygen Delivery Method Room Air Room Air Sepsis Recent Fever Within 48 Hours No Sepsis New/Unexplained Change in Mental Status No Sepsis Action Taken by Nursing No Action Required Home Medications Current Medication List: was personally reviewed by me Laboratory Data Attestation: I reviewed the patient's lab results. 08/31/23 13:45 08/31/23 13:45 Lab Results 08/31/23 08/31/23 08/31/23 Range/Units 13:45 14:39 15:00 WBC 4.07 L (4.8-10.8) K/ul RBC 3.06 L (4.70-6.10) M/uL Hgb 8.5 L (14.0-18.0) g/dl Hct 29.1 L (42.0-52.0) % MCV 95.1 (80.0-100.0) fL MCH 27.8 (25.0-34.0) pg MCHC 29.2 L (32.0-36.0) g/dL RDW Std Deviation 69.8 H (36.4-46.3) fL RDW Coeff of Nick 20.2 H (11.5-14.5) % Plt Count 117 L (130-400) K/uL MPV 12.0 (9.4-12.4) fL Immature Gran % (Auto) 0.2 % Neut % (Auto) 69.6 % Lymph % (Auto) 11.8 % Isabela % (Auto) 10.8 % Eos % (Auto) 7.1 % Baso % (Auto) 0.5 % Neut # (Auto) 2.83 (1.40-6.50) K/uL Lymph # (Auto) 0.48 L (1.20-3.40) K/uL Isabela # (Auto) 0.44 (0.11-0.59) K/uL Eos # (Auto) 0.29 (0.00-0.50) K/uL Baso # (Auto) 0.02 (0.00-0.20) K/uL Immature Gran # (Auto) 0.01 (0.01-0.20) K/uL Polychromasia 1+ Anisocytosis Present Tear Drop Cells 1+ PT 67.8 H (9.0-12.0) Seconds INR 7.0 H* (0.9-1.1) APTT 58 H (21-31) Seconds PTT Ratio 2.1 VBG pH 7.31 L (7.36-7.41) VBG pCO2 49 (38-50) mmHg VBG pO2 28 mmHg VBG HCO3 25 mmol/L VBG O2 Saturation < 60.0 % VBG Base Excess -2.1 mEq/L Sodium 143 (136-145) mmol/L Potassium 4.6 (3.5-5.1) mmol/L Chloride 112 H (98-107) mmol/L Carbon Dioxide 25 (21-32) mmol/L Anion Gap 6 (3-11) BUN 52 H (6-23) mg/dl Creatinine 2.20 H (0.6-1.4) mg/dl Est Cr Clr Drug Dosing 28.1 ml/min Est GFR ( Amer) 32.3 ml/min Est GFR (Non-Af Amer) 27.9 ml/min BUN/Creatinine Ratio 23.6 H (10-20) Glucose 97 (70-99(Fasting)) mg/dl Calcium 9.2 (8.6-10.3) mg/dl Magnesium 2.4 (1.7-2.4) mg/dl Total Bilirubin 0.7 (0.2-1.0) mg/dl AST 128 H (13-39) U/L ALT 29 (7-52) U/L Alkaline Phosphatase 51 (34-104) U/L Ammonia Cancelled 45.0 Total Creatine Kinase 41 (30-223) U/L Troponin I High Sens 9.9 (0-20) pg/ml C-Reactive Protein 2.37 H (0-0.5) mg/dl Total Protein 7.7 (6.0-8.3) gm/dl Albumin 3.6 (3.4-5.0) gm/dl Globulin 4.1 H (2.5-4.0) gm/dl Albumin/Globulin Ratio 0.9 (0.9-2) Procalcitonin 0.18 (0-0.5) ng/ml TSH 5.046 H (0.300-4.500) uIu/ml Free T4 1.30 (0.61-1.60) ng/dl Urine Color Urine Appearance (Clear) Urine pH (4.5-7.5) Ur Specific [place] (1.000-1.030) Urine Protein (Negative) Urine Glucose (UA) (Negative) Urine Ketones (Negative) Urine Blood (Negative) Urine Nitrite (Negative) Urine Bilirubin (Negative) Urine Urobilinogen (Negative) Ur Leukocyte Esterase (Negative) Urine WBC (Auto) (0-5) /hpf Urine RBC (Auto) (0-4) /hpf U Hyaline Cast (Auto) (0-5) /lpf U Epithel Cells (Auto) (0-5) /lpf Urine Bacteria (Auto) (Negative) Urine Yeast (None Prsent) SARS-CoV-2 (PCR) NEGATIVE (Negative) Influenza Type A (PCR) Negative (Neg) Influenza Type B (PCR) Negative (Neg) RSV (RT-PCR) Negative (Neg) 08/31/23 Range/Units Unknown WBC (4.8-10.8) K/ul RBC (4.70-6.10) M/uL Hgb (14.0-18.0) g/dl Hct (42.0-52.0) % MCV (80.0-100.0) fL MCH (25.0-34.0) pg MCHC (32.0-36.0) g/dL RDW Std Deviation (36.4-46.3) fL RDW Coeff of Nick (11.5-14.5) % Plt Count (130-400) K/uL MPV (9.4-12.4) fL Immature Gran % (Auto) % Neut % (Auto) % Lymph % (Auto) % Isabela % (Auto) % Eos % (Auto) % Baso % (Auto) % Neut # (Auto) (1.40-6.50) K/uL Lymph # (Auto) (1.20-3.40) K/uL Isabela # (Auto) (0.11-0.59) K/uL Eos # (Auto) (0.00-0.50) K/uL Baso # (Auto) (0.00-0.20) K/uL Immature Gran # (Auto) (0.01-0.20) K/uL Polychromasia Anisocytosis Tear Drop Cells PT (9.0-12.0) Seconds INR (0.9-1.1) APTT (21-31) Seconds PTT Ratio VBG pH (7.36-7.41) VBG pCO2 (38-50) mmHg VBG pO2 mmHg VBG HCO3 mmol/L VBG O2 Saturation % VBG Base Excess mEq/L Sodium (136-145) mmol/L Potassium (3.5-5.1) mmol/L Chloride (98-107) mmol/L Carbon Dioxide (21-32) mmol/L Anion Gap (3-11) BUN (6-23) mg/dl Creatinine (0.6-1.4) mg/dl Est Cr Clr Drug Dosing ml/min Est GFR ( Amer) ml/min Est GFR (Non-Af Amer) ml/min BUN/Creatinine Ratio (10-20) Glucose (70-99(Fasting)) mg/dl Calcium (8.6-10.3) mg/dl Magnesium (1.7-2.4) mg/dl Total Bilirubin (0.2-1.0) mg/dl AST (13-39) U/L ALT (7-52) U/L Alkaline Phosphatase (34-104) U/L Ammonia Total Creatine Kinase (30-223) U/L Troponin I High Sens (0-20) pg/ml C-Reactive Protein (0-0.5) mg/dl Total Protein (6.0-8.3) gm/dl Albumin (3.4-5.0) gm/dl Globulin (2.5-4.0) gm/dl Albumin/Globulin Ratio (0.9-2) Procalcitonin (0-0.5) ng/ml TSH (0.300-4.500) uIu/ml Free T4 (0.61-1.60) ng/dl Urine Color Dark Yellow Urine Appearance Turbid A (Clear) Urine pH 5.0 (4.5-7.5) Ur Specific [place] 1.021 (1.000-1.030) Urine Protein 1+ H (Negative) Urine Glucose (UA) Negative (Negative) Urine Ketones Trace H (Negative) Urine Blood 2+ H (Negative) Urine Nitrite Negative (Negative) Urine Bilirubin Negative (Negative) Urine Urobilinogen Negative (Negative) Ur Leukocyte Esterase 3+ H (Negative) Urine WBC (Auto) >30 H (0-5) /hpf Urine RBC (Auto) 5-10 H (0-4) /hpf U Hyaline Cast (Auto) 5-10 H (0-5) /lpf U Epithel Cells (Auto) 5-10 H (0-5) /lpf Urine Bacteria (Auto) 3+ H (Negative) Urine Yeast Budding A (None Prsent) SARS-CoV-2 (PCR) (Negative) Influenza Type A (PCR) (Neg) Influenza Type B (PCR) (Neg) RSV (RT-PCR) (Neg) Administered Medications Discontinued Medications Sodium Chloride (Nss) 500 mls @ 999 mls/hr IV .Q31M DANIEL Stop: 08/31/23 14:15 Last Infusion: 08/31/23 16:23 Dose: Infused Documented By: Admin: 08/31/23 15:05 Dose: 999 mls/hr Documented By: ROSELINE Ceftriaxone Sodium (Rocephin) 2,000 mg in 50 mls @ 100 mls/hr IV NOW STA Stop: 08/31/23 16:12 Last Admin: 08/31/23 16:23 Dose: 100 mls/hr Documented By: JENNIFER Imaging Data Attestation: I personally reviewed and interpreted this imaging study as follows: My Impression: 1 view chest x-ray was obtained in the emergency department. My interpretation is no free air, final report below. CT of the brain was obtained in the emergency department. My interpretation is no intracranial hemorrhage or mass effect, final report below. Radiologist's Impression: Chest X-Ray 08/31/23 13:38 XR chest 1V portable HISTORY: weakness COMPARISON: Chest 08/08/2023. FINDINGS: There are low lung volumes. No pneumothorax. Suture material overlying the right upper lobe, unchanged. There are poststernotomy changes. The heart remains enlarged. Mild pulmonary edema, bilateral pleural effusions, and patchy bibasilar densities are again noted. IMPRESSION: No significant change in the pulmonary edema, bilateral pleural effusions, and bibasilar densities. ACT 112: Negative or not required by law. Electronically signed by: Ab Meyer M.D. 08/31/2023 2:06 PM Abdomen/Pelvis CT 08/31/23 13:[address] WITHOUT CONTRAST CT DOSE: 2680.82 mGy.cm HISTORY: lower pain TECHNIQUE: Multiaxial CT images of the abdomen and pelvis were performed without contrast. A dose lowering technique was utilized adhering to the principles of ALARA. COMPARISON STUDY: None. FINDINGS: Lung bases: The patient is status post midline sternotomy. The heart is enlarged and without pericardial effusion. The coronary arteries and mitral annulus are densely calcified. There are moderate pleural effusions with dependent consolidation, unchanged. Liver: The unenhanced liver is enlarged an heterogeneous, measuring 21 cm in length. There is nodularity of the hepatic surface contour indicating morphologic changes of cirrhosis. There is no intrahepatic biliary ductal dilatation. Gallbladder: Surgically absent noting clips in the gallbladder fossa. Spleen: The spleen is enlarged measuring 15 cm in length. This remains unchanged. Pancreas: The unenhanced pancreas is grossly unremarkable. Adrenal glands: Unremarkable. Kidneys: The unenhanced kidneys are normal in size and without hydronephrosis. There are punctate bilateral nonobstructing renal calculi. No ureteral stone is seen. A peripherally calcified cyst arising from the right lower pole measures up to 2.3 cm. A 1.6 cm cyst arises from the left lower pole. Abdominal vasculature: The abdominal aorta is normal in course and caliber noting moderate to advanced atherosclerotic calcification. Bowel: There are scattered colonic diverticula without CT evidence of acute diverticulitis. No bowel obstruction is seen. The appendix is well-visualized and normal. Mild rectal wall thickening, unchanged. Peritoneum: No intraperitoneal free air is identified. There is a [id number] volume of abdominopelvic ascites, unchanged. There is a fat- containing umbilical hernia. Diffuse mesenteric edema again noted. Lymphadenopathy: None. Pelvic viscera: Mild bladder wall thickening is improved There is a fat and fluid-containing left inguinal hernia. Skeletal structures: The skeletal structures are heterogeneously osteopenic.. No lytic or blastic lesions are seen. Moderate body wall edema, unchanged. IMPRESSION: 1. Mild rectal wall thickening, unchanged. 2. The liver is enlarged and shows morphologic changes of cirrhosis, unchanged. 3. Splenomegaly and a small to moderate volume of abdominopelvic ascites indicate portal hypertension. This is similar to the prior study. 4. Moderate pleural effusions with dependent consolidation, which likely represents atelectasis. This is similar to the prior study. 5. Cardiomegaly. 6. There are punctate bilateral nonobstructing renal calculi. No hydronephrosis. 7. Mild bladder wall thickening has improved. ACT 112: Negative or not required by law. Electronically signed by: Ab Meyer M.D. 08/31/2023 3:[address] 08/31/23 13:[address] DOSE: HISTORY: Altered mental status TECHNIQUE: Multiaxial CT images of the head were performed without the use of intravenous contrast. Automated exposure control was utilized for this study. A dose lowering technique was utilized adhering to the principles of ALARA. Comparison: Head CT 08/08/2023. Findings: The paranasal sinuses and mastoid air cells are clear. The calvarium and skull base are intact. There is no mass, hematoma, midline shift, acute infarct. White matter hypodensity is nonspecific but suggestive of microvascular ischemic change. The ventricles and sulci demonstrate mild age-related involutional changes. 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 Old punctate lacunar infarcts within the right thalamus. Impression: No significant change compared to the prior study. No acute intracranial abnormality. ACT 112: Negative or not required by law. Electronically signed by: Ab Meyer M.D. 08/31/2023 2:20 PM Discharge Plan Visit Data Chief Complaint: Dehydration Stated Complaint: WON'T EAT BP BELOW 100 ED Provider: Randall Wallace Discharge Problem: Generalized weakness, Anemia, Acute dehydration, Urinary tract infection, Pleural effusion, Acute alteration in mental status Patient Disposition: Being Evaluated by Hospitalist Forms Stand Alone Forms: [facility] Prescriptions Prescriptions: No Action amiodarone 200 mg tablet 100 mg PO QAM cholecalciferol (vitamin D3) 50 mcg (2,000 unit) capsule 50 mcg PO .@1999 clonazepam 0.5 mg tablet 0.5 mg PO DAILY PRN (Reason: Anxiety) Rx Instructions: unable to verify fenofibric acid (choline) 135 mg capsule,delayed release(DR/EC) 135 mg PO QAM furosemide 20 mg tablet 0 mg PO QAM Hold Instructions: Hold until follow up with PCP Rx Instructions: Currently on hold since 08/08/23 hydrocortisone acetate 1 % cream 1 applic topical BID PRN (Reason: Skin Irritation) Rx Instructions: unable to verify metformin 1,000 mg tablet 0 mg PO BID Rx Instructions: Currently on hold as of 08/21/23 metoprolol tartrate 25 mg tablet 50 mg PO .@1999 pantoprazole 40 mg tablet,delayed release (DR/EC) 40 mg PO .@1699 aripiprazole [Abilify] 2 mg tablet 2 mg PO QAM simethicone 125 mg capsule 125 mg PO DAILY PRN (Reason: gas pain) Rx Instructions: unable to verify sertraline 100 mg Tablet 100 mg PO .@1999 metoprolol tartrate 25 mg Tablet 25 mg PO QAM tamsulosin 0.4 mg capsule 0.4 mg PO .@1999 Vitron-C 66-125 mg Tablet,Chewable 1 tab PO 3XWK Qty: 0 Rx Instructions: as directed @ 5PM . Fri/Fri/Fri warfarin 2 mg tablet 3 mg PO DAILY Hold Instructions: Hold until follow up INR in 2 days. Rx Instructions: 3 mg daily. Pt test INR at home every Friday. 5:00pm cyanocobalamin (vitamin B-12) [Vitamin B-12] 1,000 mcg Tablet 1,000 mcg PO DAILY levothyroxine [Synthroid] 75 mcg tablet 75 mcg PO .NOON mirtazapine 7.5 mg tablet 15 mg PO HS Rx Instructions: Per spouse, it is written for 7.5mg at bedtime but they increased it last night because it wasn't working. Referrals Referrals: Sho Bowman DO [Primary Care Provider] - Discharge Problem: Anemia Qualifiers: Anemia type: unspecified type Qualified Code(s): D64.9 - Anemia, unspecified Urinary tract infection Qualifiers: Urinary tract infection type: site unspecified Hematuria presence: with hematuria Qualified Code(s): N39.0 - Urinary tract infection, site not specified ; R31.9 - Hematuria, unspecified
--- NOTE | 2023-08-31 14:07 | XRay Report ---
XR chest 1V portable HISTORY: weakness COMPARISON: Chest 08/08/2023. FINDINGS: There are low lung volumes. No pneumothorax. Suture material overlying the right upper lobe , unchanged. There are poststernotomy changes. The heart remains enlarged. Mild pulmonary edema, bila teral pleural effusions, and patchy bibasilar densities are again noted. IMPRESSION: No significant change in the pulmonary edema, bilateral pleural effusions, and bibasilar densities. ACT 112: Negative or not required by law. Electronically signed by: Ab Meyer M.D. 08/31/2023 2:06 PM
[2023-08-31 14:09] LABS: Hematocrit (blood only) 29.1 % (42.0-52.0); Hemoglobin 8.5 g/dl (14.0-18.0); Mean Corpuscular Hemoglobin 27.8 pg (25.0-34.0); Mean Corpuscular Hgb Conc 29.2 g/dL (32.0-36.0); Mean Corpuscular Volume 95.1 fL (80.0-100.0); Platelet Count 117 K/uL (130-400); RDW Coefficient of Variation 20.2 % (11.5-14.5); RDW Standard Deviation 69.8 fL (36.4-46.3); Red Blood Count 3.06 M/uL (4.70-6.10); White Blood Count 4.07 K/ul (4.8-10.8)
[2023-08-31 14:22] LABS: Albumin Globulin Ratio 0.9 (0.9-2); Albumin Level 3.6 gm/dl (3.4-5.0); BUN Creatinine Ratio 23.6 (10-20); Bilirubin,Total 0.7 mg/dl (0.2-1.0); C Reactive Protein 2.37 mg/dl (0-0.5); Calcium 9.2 mg/dl (8.6-10.3); Creatinine Clr Calc Pharmacy 28.1 ml/min; Est GFR (African American) 32.3 ml/min; Est GFR (Non-African American) 27.9 ml/min; Globulin 4.1 gm/dl (2.5-4.0); Magnesium 2.4 mg/dl (1.7-2.4); Potassium 4.6 mmol/L (3.5-5.1); Total Protein 7.7 gm/dl (6.0-8.3)
--- NOTE | 2023-08-31 14:23 | CT Scan Report ---
HEAD CT NONCONTRAST CT DOSE: HISTORY: Altered mental status TECHNIQUE: Multiaxial CT images of the head were performed without the use of intravenous contrast. A utomated exposure control was utilized for this study. A dose lowering technique was utilized adheri ng to the principles of ALARA. Comparison: Head CT 08/08/2023. Findings: The paranasal sinuses and mastoid air cells are clear. The calvarium and skull base are int act. There is no mass, hematoma, midline shift, acute infarct. White matter hypodensity is nonspecifi c but suggestive of microvascular ischemic change. The ventricles and sulci demonstrate mild age-rela zuly involutional changes. 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 Old p unctate lacunar infarcts within the right thalamus. Impression: No significant change compared to the prior study. No acute intracranial abnormality. ACT 112: Negative or not required by law. Electronically signed by: Ab Meyer M.D. 08/31/2023 2:20 PM
[2023-08-31 14:27] LABS: Appearance Urine Turbid (Clear); Bilirubin Urine Negative (Negative); Blood Urine 2+ (Negative); Color Urine Dark Yellow; Glucose Urine UA Negative (Negative); Ketones Urine Trace (Negative); Leukocyte Esterase Urine 3+ (Negative); Nitrite Urine Negative (Negative); Protein Urine 1+ (Negative); Specific Gravity Urine 1.021 (1.000-1.030); Urobilinogen Urine Negative (Negative); WBC Urine Automated >30 /hpf (0-5)
[2023-08-31 14:28] LABS: Troponin I High Sensitivity 9.9 pg/ml (0-20)
[2023-08-31 14:31] LABS: Partial Thromboplastin Ratio 2.1; Partial Thromboplastin Time 58 Seconds (21-31); Prothrombin Time 67.8 Seconds (9.0-12.0)
[2023-08-31 14:38] LABS: Thyroid Stimulating Hormone 5.046 uIu/ml (0.300-4.500)
[2023-08-31 14:39] LABS: Bacteria Urine Automated 3+ (Negative)
[2023-08-31 14:49] LABS: Base Excess VBG -2.1 mEq/L; HCO3 VBG 25 mmol/L; Oxygen Saturation VBG < 60.0 %; PCO2 VBG 49 mmHg (38-50); PO2 VBG 28 mmHg; pH VBG 7.31 (7.36-7.41)
[2023-08-31 14:56] LABS: Anisocytosis Present; Basophils # (auto) 0.02 K/uL (0.00-0.20); Basophils % (auto) 0.5 %; Eosinophils # (auto) 0.29 K/uL (0.00-0.50); Eosinophils % (auto) 7.1 %; Immature Granulocytes # (auto) 0.01 K/uL (0.01-0.20); Immature Granulocytes % (auto) 0.2 %; Lymphocytes # (auto) 0.48 K/uL (1.20-3.40); Lymphocytes % (auto) 11.8 %; Monocytes # (auto) 0.44 K/uL (0.11-0.59); Monocytes % (auto) 10.8 %; Neutrophils # (auto) 2.83 K/uL (1.40-6.50); Neutrophils % (auto) 69.6 %; Polychromasia 1+; Tear Drop Cells 1+
[2023-08-31] MEDS: SODIUM CHLORIDE 0.9% 500 ML IV SCH (15:05)
[2023-08-31 15:14] LABS: T4 Free Thyroxine 1.3 ng/dl (0.61-1.60)
--- NOTE | 2023-08-31 15:48 | CT Scan Report ---
ABDOMEN AND PELVIS CT WITHOUT CONTRAST CT DOSE: 2680.82 mGy.cm HISTORY: lower pain TECHNIQUE: Multiaxial CT images of the abdomen and pelvis were performed without contrast. A dose lo wering technique was utilized adhering to the principles of ALARA. COMPARISON STUDY: None. FINDINGS: Lung bases: The patient is status post midline sternotomy. The heart is enlarged and without pericard ial effusion. The coronary arteries and mitral annulus are densely calcified. There are moderate pleu ral effusions with dependent consolidation, unchanged. Liver: The unenhanced liver is enlarged an heterogeneous, measuring 21 cm in length. There is nodular ity of the hepatic surface contour indicating morphologic changes of cirrhosis. There is no intrahepa tic biliary ductal dilatation. Gallbladder: Surgically absent noting clips in the gallbladder fossa. Spleen: The spleen is enlarged measuring 15 cm in length. This remains unchanged. Pancreas: The unenhanced pancreas is grossly unremarkable. Adrenal glands: Unremarkable. Kidneys: The unenhanced kidneys are normal in size and without hydronephrosis. There are punctate sandrita ateral nonobstructing renal calculi. No ureteral stone is seen. A peripherally calcified cyst arising from the right lower pole measures up to 2.3 cm. A 1.6 cm cyst arises from the left lower pole. Abdominal vasculature: The abdominal aorta is normal in course and caliber noting moderate to advance d atherosclerotic calcification. Bowel: There are scattered colonic diverticula without CT evidence of acute diverticulitis. No bowel obstruction is seen. The appendix is well-visualized and normal. Mild rectal wall thickening, unchan ged. Peritoneum: No intraperitoneal free air is identified. There is a [id number] volume of abdomin opelvic ascites, unchanged. There is a fat-containing umbilical hernia. Diffuse mesenteric edema agai n noted. Lymphadenopathy: None. Pelvic viscera: Mild bladder wall thickening is improved There is a fat and fluid-containing left ing uinal hernia. Skeletal structures: The skeletal structures are heterogeneously osteopenic.. No lytic or blastic les ions are seen. Moderate body wall edema, unchanged. IMPRESSION: 1. Mild rectal wall thickening, unchanged. 2. The liver is enlarged and shows morphologic changes of cirrhosis, unchanged. 3. Splenomegaly and a small to moderate volume of abdominopelvic ascites indicate portal hypertension . This is similar to the prior study. 4. Moderate pleural effusions with dependent consolidation, which likely represents atelectasis. This is similar to the prior study. 5. Cardiomegaly. 6. There are punctate bilateral nonobstructing renal calculi. No hydronephrosis. 7. Mild bladder wall thickening has improved. ACT 112: Negative or not required by law. Electronically signed by: Ab Meyer M.D. 08/31/2023 3:46 PM
[2023-08-31 15:55] LABS: Influenza A virus by PCR Negative (Neg); Influenza B virus by PCR Negative (Neg); RSV by PCR Negative (Neg); SARS CoV2 RNA(COVID-19) Ceph NEGATIVE (Negative)
[2023-08-31] MEDS: cefTRIAXone SODIUM 2,000 MG/50 ML BAG IV STA (16:23)
--- NOTE | 2023-08-31 16:40 | History & Physical Report ---
Date of Service August 31, 2023 Assessment & Plan (1) Failure to thrive in adult: Plan: -Admit to med/tele -Currently stable and non-toxic appearing -Has been having a progressive clinical decline since his discharge from [facility] on 08/12/23 -His decline is likely multifactorial including his known cirrhosis, anemia, poor oral intake, and recurrent UTI's -Noted to have a UTI today -Will need to see how he responds to treating the easily reversible causes such as his UTI to get a better baseline -Will consult our Rig Manager for nutritional assessment -PT/OT consults -Clear liquid diet for now -BL KAYLEE's for DVT PPX -AM CBC, CMP, mag, PT/INR (2) Urinary tract infection: Plan: -Urine noted to be infected today -Unsure if he truly had a UTI last admission as his urine cultures was negative -UTI is likely due to recurrent bladder outlet obstructions as his marvin cath placed last admission was removed in the outpatient setting on 08/15/23 -Continue Ceftriaxone for now -Will have him bladder scanned on admission, prn straight cath's ordered for PVR equal to or greater than 300 cc -Many need recurrent marvin cath placement -Continue flomax (3) Supratherapeutic INR: Plan: -INR at 7.0 today -Patient's reports his last dose of Warfarin was 3 mg last night -Has been checking his INR once weekly with results sent to his PCP for dosing adjustments -Likely a combination of his poor nutritional status and known cirrhosis -No acute bleeding on exam -Will hold warfarin for now -Monitor daily INR, goal is 2.5-3.5 with his prosthetic aortic valve (4) VINICIUS (acute kidney injury): Plan: -Cr of 2.20, baseline is near 1.7 -Likely a combination of hypotension from dehydration, cirrhosis, and continued metoprolol use and his chronic bladder outlet obstruction -Presented with a similar Cr last admission which improved with better control of his BP -He is high risk for 3rd spacing with his Cirrhosis and appears to be 3rd spacing on exam today but intravascularly depleted -Albumin is 3.6 today -S/P 500 mL NSS in the ED -Will hold additonal IV fluids for now -Hold metoprolol and continue to hold lasix -Will give 5 mg midodrine tonight, monitor for improvement in BP -Avoid nephrotoxic agents -Monitor daily renal function and electrolytes (5) Nausea & vomiting: Plan: -Patient has been experiencing post-prandial nausea and vomiting over the past 2 weeks -He states that he gets full easily and denies pain prior to or after vomiting -He has multiple possible etiologies including nausea/vomiting with UTI's, gastroparesis, and his known cirrhosis -Will start him on clears for now -Start prn Zofran -Monitor for improvement with treatment of his UTI -Follow Rig Manager consult -Aspiration precautions (6) Pleural effusion: Plan: -Patient's BL pleural effusions appear slightly more progressed than last admission -Likely due to his known cirrhosis and CHF -Currently stable on RA and not in respiratory distress -Will consult Pulmonology -Will have to hold diuresis for now with his labile BP on admission (7) Thrombocytopenia: Plan: -Noted to be 117 today, down from 134 as of 08/12/23 -Likely due to his cirrhosis -No sings of bleeding -Hold chemical DVT PPX for now -Monitor daily CBC (8) Cirrhosis: Plan: -Unable to get accurate MELD-Na score today due to his elevated INR with taking his Warfarin last night -Does not appear to be encephalopathic on exam, LFT's are stable -Has appointment with [facility] next month -Avoid nephrotoxic agents, monitor volume status closely -Monitor daily CMP and INR (9) S/P AVR: Plan: -Holding Warfarin for now with elevated INR -Goal INR is 2.5-3.5, monitor daily (10) Diabetes: Plan: -Monitor BSG q6h while on clears, goal is 110-160 -Start CF 50 q6h for now as his BSG is currently in the 90's -Nutrition consult placed (11) Hypothyroidism: Plan: -Continue levothyroxine Plan The patient was discussed with Dr. Delgado at the time of the admission History of Present Illness Chief Complaint: Recurrent nausea/vomiting, poor oral intake, continued clinical decline Primary Care Provider: DO Maicol Olivo is a 78-year-old male with a past medical history of HFpEF, Cirrhosis (diagnosed last admission), anxiety, DM 2, prostate cancer s/p Rezum 12/05/2022 and radiation with recurrent hematuria, failure to thrive who presented to the [facility] ED on 08/31/23 with complaints of poor oral intake over the past 5 days with associated post-prandial nausea and vomiting. He remained stable in the ED. Labs were significant for worsening anemia with RBC of 3.06, Hgb of 8.5, HCT of 29, MCHC of 29, platelets of 117, lymphocyte count of 0.48, INR of 7.0, VBG pH of 7.31 with pCO2 and pO2 WNL, Cr of 2.20 (baseline is near 1.7), BUN of 52, AST of 128, CRP of 2.37, UA consistent with UTI, and Covid19/Influenza/RSV negative. CT head/brain wo con was negative for acute findings. CXR was read as "No significant change in the pulmonary edema, bilateral pleural effusions, and bibasilar densities.". CT of the abd/pelvis wo con was read as '1. Mild rectal wall thickening, unchanged. 2. The liver is enlarged and shows morphologic changes of cirrhosis, unchanged. 3. Splenomegaly and a small to moderate volume of abdominopelvic ascites indicate portal hypertension. This is similar to the prior study. 4. Moderate pleural effusions with dependent consolidation, which likely represents atelectasis. This is similar to the prior study. 5. Cardiomegaly. 6. There are punctate bilateral nonobstructing renal calculi. No hydronephrosis. 7. Mild bladder wall thickening has improved.". Prior to admission the patient was given 500 mL NSS and 2gm Ceftriaxone. At the time of the exam the patient was sitting up in bed, sleeping comfortably, with his sitting bedside. The majority of the history was obtained from the patient's due to his severe hearing loss and fatigue. She states that the patient was doing well for about a week after his discharge from [facility] on 08/12/23. However, over the past 2 weeks the patient been experiencing progressive post-prandial nausea/vomiting, early satiety, and progressive generalized weakness. Over the past week his recurrent nausea and vomiting have been after almost every meal. When asked, the patient states he feels as though he is getting full quickly and has very little appetite. He denies pain ass ociated with eating. His states that he was started on the HS Remeron as appetite stimulant but it has not been helping. She states that their daughter gave the patient a double dose of Remeron last night. His states that he his lasix and metformin have been on hold since his last admission. They have an upcoming appointment with a Vocational Director in the [facility] next month for his recent cirrhosis diagnosis. He does not have a hx of heavy alcohol use. When asked, his states that he was started on 200 mg Amiodarone approximately 3 years ago, after his Aortic Valve replacement. His dose was reduced to 100 mg approximately 6 months ago. His and daughter are concerned about his nutritional status and want to discuss possible feeding tube if necessary. The patient is a full code and his /daughter would make medical decisions for him if he cannot make them himself. Please refer to Dr. Delgado's attestation for any changes to the treatment plan Allergies Allergy/AdvReac Type Severity Reaction Status Date / Time plasma Allergy Severe frozen Uncoded 08/31/23 14:08 plasma - developed hives Home Medications Medication Instructions Recorded Confirmed Type amiodarone 200 mg tablet 100 mg PO QAM 10/07/22 08/31/23 History cholecalciferol (vitamin D3) 50 50 mcg PO .@199910/07/22 08/31/23 History mcg (2,000 unit) capsule clonazepam 0.5 mg tablet 0.5 mg PO DAILY PRN Anxiety 10/07/22 08/31/23 History fenofibric acid (choline) 135 mg 135 mg PO QAM 10/07/22 08/31/23 History capsule,delayed release furosemide 20 mg tablet 0 mg PO QAM 10/07/22 08/31/23 History hydrocortisone acetate 1 % topical 1 applic topical BID PRN Skin 10/07/22 08/31/23 History cream Irritation metformin 1,000 mg tablet 0 mg PO BID 10/07/22 08/31/23 History metoprolol tartrate 25 mg tablet 50 mg PO .@199910/07/22 08/31/23 History pantoprazole 40 mg tablet,delayed 40 mg PO .@169910/07/22 08/31/23 History release aripiprazole 2 mg tablet (Abilify) 2 mg PO QAM 11/14/22 08/31/23 History simethicone 125 mg capsule 125 mg PO DAILY PRN gas pain 11/14/22 08/31/23 History metoprolol tartrate 25 mg tablet 25 mg PO QAM 11/25/22 08/31/23 History sertraline 100 mg tablet 100 mg PO .@199911/25/22 08/31/23 History tamsulosin 0.4 mg capsule 0.4 mg PO .@199911/25/22 08/31/23 History ferrous fumarate-vitamin C 66 1 tab PO 3XWK ##0 08/08/23 08/31/23 History mg-125 mg chewable tablet warfarin 2 mg tablet 3 mg PO DAILY 08/08/23 08/31/23 History cyanocobalamin (vitamin B-12) 1,000 mcg PO DAILY 08/31/23 08/31/23 History 1,000 mcg tablet (Vitamin B-12) levothyroxine 75 mcg tablet 75 mcg PO .NOON 08/31/23 08/31/23 History (Synthroid) mirtazapine 7.5 mg tablet 15 mg PO HS 08/31/23 08/31/23 History Past Med/Surg History Medical History Indwelling Marvin catheter present Diabetes mellitus, type 2 NIDDM Osteoarthritis GERD (gastroesophageal reflux disease) Anxiety Hx of prostatic malignancy Spring 2020 Treated with radiation treatments Hx of aortic aneurysm s/p107/2020 in [facility] Follows with [facility] Hypertension Suspected sleep apnea History of COVID-19 x2 Most recent home test positive 10/13/22- asymptomatic (tested d/t family members were positive) History of fractured vertebra Cervical fracture 11/18/21- medical management recommended, follows with physical therapy, "full ROM" per patient Surgical History History of flexible sigmoidoscopy History of colonoscopy History of cholecystectomy History of appendectomy History of prostate surgery to stop prostate bleeding in Summer 2020 History of aortic aneurysm repair 05/2021 in [facility] Follows with [facility] H/O heart surgery graphite aortic valve [facility] [place] [facility] age 44[facility] Family History Mother Diabetes Hypertension Father Diabetes Other No family history of adverse response to anesthesia Social History Smoking Status: Never smoker Second Hand Exposure: No; Do You Dip or Chew Tobacco: No; Hx Alcohol Use: No Hx Substance Use: No Preferred Language: Divehi Communication Ability: Effective Bait Maker Required: No Beliefs That Will Affect Care: None marital status: Current Living Situation: Spouse current occupational status: retired Feels Safe at Home: No Is there a partner from a previous relationship who is making you feel unsafe now?: No Assistive Devices: Cane, Walker and Wheelchair Physical Exam Physical Exam: Physical Exam: General: In no acute distress, stated age, malnourished and chronically ill appearing but non-toxic HEENT: Normocephalic, atraumatic, no scleral icterus, pupils around round, symmetrical, and reactive to light, dry mucus membranes, trachea midline, no thyromegaly Chest/Pulm: No respiratory distress, symmetrical chest expansion, decreased breath sounds in the BL lower lung benites, otherwise CTA Cardiac: RRR, murmur from aortic valve replacement noted Abdomen: Moderately distended, no bruising noted, normoactive bowel sounds, soft, significant hepatomegaly noted, non-tender to palpation throughout Musculoskeletal: Symmetrical and without signs of acute trauma, upper and lower extremities with full ROM, no atrophy, spasticity, or flaccidity Extremities: Radial, dorsalis pedis, and posterior tibial pulses are intact and symmetrical, BL LE's are firm due to edema Skin: Warm, dry, no rashes , lesions, or scars noted Neuro: Significantly hard of hearing, Alert and oriented to person, place, month, year, and president, no focal defects, CN II-XII tested and intact, no tremors noted Psych: No acute distress, calm and cooperative during the exam Results & Data Results & Data Vital Signs (Past 12 Hours) Vital Signs Temp Pulse Resp BP Pulse Ox O2 Del Method 08/31/23 13:38 66 22 95 Room Air 08/31/23 12:47 36.9 C 69 18 103/63 96 Room Air Laboratory Results Abnormal lab results 08/31/23 08/31/23 08/31/23 Range/Units 13:45 14:39 Unknown WBC 4.07 L (4.8-10.8) K/ul RBC 3.06 L (4.70-6.10) M/uL Hgb 8.5 L (14.0-18.0) g/dl Hct 29.1 L (42.0-52.0) % MCHC 29.2 L (32.0-36.0) g/dL RDW Std Deviation 69.8 H (36.4-46.3) fL RDW Coeff of Nick 20.2 H (11.5-14.5) % Plt Count 117 L (130-400) K/uL Lymph # (Auto) 0.48 L (1.20-3.40) K/uL PT 67.8 H (9.0-12.0) Seconds INR 7.0 H* (0.9-1.1) APTT 58 H (21-31) Seconds VBG pH 7.31 L (7.36-7.41) Chloride 112 H (98-107) mmol/L BUN 52 H (6-23) mg/dl Creatinine 2.20 H (0.6-1.4) mg/dl BUN/Creatinine Ratio 23.6 H (10-20) AST 128 H (13-39) U/L C-Reactive Protein 2.37 H (0-0.5) mg/dl Globulin 4.1 H (2.5-4.0) gm/dl TSH 5.046 H (0.300-4.500) uIu/ml Urine Appearance Turbid A (Clear) Urine Protein 1+ H (Negative) Urine Ketones Trace H (Negative) Urine Blood 2+ H (Negative) Ur Leukocyte Esterase 3+ H (Negative) Urine WBC (Auto) >30 H (0-5) /hpf Urine RBC (Auto) 5-10 H (0-4) /hpf U Hyaline Cast (Auto) 5-10 H (0-5) /lpf U Epithel Cells (Auto) 5-10 H (0-5) /lpf Urine Bacteria (Auto) 3+ H (Negative) Urine Yeast Budding A (None Prsent) Diagnostic Findings Chest X-Ray 08/31/23 13:38 XR chest 1V portable HISTORY: weakness COMPARISON: Chest 08/08/2023. FINDINGS: There are low lung volumes. No pneumothorax. Suture material overlying the right upper lobe, unchanged. There are poststernotomy changes. The heart remains enlarged. Mild pulmonary edema, bilateral pleural effusions, and patchy bibasilar densities are again noted. IMPRESSION: No significant change in the pulmonary edema, bilateral pleural effusions, and bibasilar densities. ACT 112: Negative or not required by law. Electronically signed by: Ab Meyer M.D. 08/31/2023 2:06 PM Abdomen/Pelvis CT 08/31/23 13:[address] WITHOUT CONTRAST CT DOSE: 2680.82 mGy.cm HISTORY: lower pain TECHNIQUE: Multiaxial CT images of the abdomen and pelvis were performed without contrast. A dose lowering technique was utilized adhering to the principles of ALARA. COMPARISON STUDY: None. FINDINGS: Lung bases: The patient is status post midline sternotomy. The heart is enlarged and without pericardial effusion. The coronary arteries and mitral annulus are densely calcified. There are moderate pleural effusions with dependent consolidation, unchanged. Liver: The unenhanced liver is enlarged an heterogeneous, measuring 21 cm in length. There is nodularity of the hepatic surface contour indicating morphologic changes of cirrhosis. There is no intrahepatic biliary ductal dilatation. Gallbladder: Surgically absent noting clips in the gallbladder fossa. Spleen: The spleen is enlarged measuring 15 cm in length. This remains unchanged. Pancreas: The unenhanced pancreas is grossly unremarkable. Adrenal glands: Unremarkable. Kidneys: The unenhanced kidneys are normal in size and without hydronephrosis. There are punctate bilateral nonobstructing renal calculi. No ureteral stone is seen. A peripherally calcified cyst arising from the right lower pole measures up to 2.3 cm. A 1.6 cm cyst arises from the left lower pole. Abdominal vasculature: The abdominal aorta is normal in course and caliber noting moderate to advanced atherosclerotic calcification. Bowel: There are scattered colonic diverticula without CT evidence of acute diverticulitis. No bowel obstruction is seen. The appendix is well-visualized and normal. Mild rectal wall thickening, unchanged. Peritoneum: No intraperitoneal free air is identified. There is a [id number] volume of abdominopelvic ascites, unchanged. There is a fat- containing umbilical hernia. Diffuse mesenteric edema again noted. Lymphadenopathy: None. Pelvic viscera: Mild bladder wall thickening is improved There is a fat and fluid-containing left inguinal hernia. Skeletal structures: The skeletal structures are heterogeneously osteopenic.. No lytic or blastic lesions are seen. Moderate body wall edema, unchanged. IMPRESSION: 1. Mild rectal wall thickening, unchanged. 2. The liver is enlarged and shows morphologic changes of cirrhosis, unchanged. 3. Splenomegaly and a small to moderate volume of abdominopelvic ascites indicate portal hypertension. This is similar to the prior study. 4. Moderate pleural effusions with dependent consolidation, which likely represents atelectasis. This is similar to the prior study. 5. Cardiomegaly. 6. There are punctate bilateral nonobstructing renal calculi. No hydronephrosis. 7. Mild bladder wall thickening has improved. ACT 112: Negative or not required by law. Electronically signed by: Ab Meyer M.D. 08/31/2023 3:[address] 08/31/23 13:[address] DOSE: HISTORY: Altered mental status TECHNIQUE: Multiaxial CT images of the head were performed without the use of intravenous contrast. Automated exposure control was utilized for this study. A dose lowering technique was utilized adhering to the principles of ALARA. Comparison: Head CT 08/08/2023. Findings: The paranasal sinuses and mastoid air cells are clear. The calvarium and skull base are intact. There is no mass, hematoma, midline shift, acute infarct. White matter hypodensity is nonspecific but suggestive of microvascular ischemic change. The ventricles and sulci demonstrate mild age-related involutional changes. 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 Old punctate lacunar infarcts within the right thalamus. Impression: No significant change compared to the prior study. No acute intracranial abnormality. ACT 112: Negative or not required by law. Electronically signed by: Ab Meyer M.D. 08/31/2023 2:20 PM ECG Additional Comments: Sinus rhythm with 1st degree A-V block Low voltage QRS Septal infarct (cited on or before 10-AUG-2023) Abnormal ECG When compared with ECG of 10-AUG-2023 21:02, UT interval has increased Nonspecific T wave abnormality now evident in Anterior leads Code Status & VTE Plan Code Status Full code VTE Prophylaxis Plan VTE Prophylaxis will be ordered: Yes Supervising Physician Co-Signing Physician Notes I personally saw and examined the patient. I verified all saenz points and agree with Vivek Maher PA-C with the following exceptions and/or additions: 78 year old male presents to the ER with nausea, vomiting, generalized weakness. Liver cirrhosis. Unable to get any history from the patient, see history as above. O/E Alert, orientated to person only, frail appearing and malnourished, HS RRR, mechanical click, Chest bibasal absent breath sounds, bilateral rhonchi, Abdo soft, hepatosplenomegaly present, non tender/guarding/rebound, 2+ tense pitting edema. A/P Fluid status / dehydration - Prior imaging suggests a heart failure given b/l pleural effusion, pitting edema and pulmonary edema. Clinically he is intravascularly dry with very dry mucus membranes which fits clinical history of lack of intake, nausea and vomiting. His Cr also improved last admission although this was by holding his metoprolol and Lasix more so than any large amount of IV fluids as he only had around 750ml bolus on admission and Cr improved over the next few days. Suspect his pleural effusion are more of a chronic problem. TTE was relatively unremarkable last admission. There is no substantial pulmonary edema on CT imaging. NSS 500ml bolus given on admission. Despite liver cirrhosis 3rd spacing is less ascites thanDiet ordered, if unable to eat may need ongoing IV fluids. Bilateral pleural effusion - ?infective which may explain reason for his repeated readmissions. Recommend thoracentesis for diagnostic and therapeutic purposes once INR in acceptable range for pulmonology. Failure to thrive - ?recurrent infection, PNA/UTI vs malnutrition/generalized deconditioning vs. aspirations UTI - possible diagnosis although this was not present on his last admission given urine culture ultimately negative. Cover with ceftriaxone but if culture negative this can be discontinued. Bladder scan for post void residual. Malnutrition - consult dietary. Supratherapeutic INR - suspect mostly due to warfarin although liver cirrhosis not ruled out his platelet count is only mildly decreased. This was trending down with holding warfarin last admission and he started taking it again therefore given his risk of clot with mechanical aortic valve and INR < 8 plan to just hold warfarin again and let this trend down slowly. PG Care Time/CCT Total # of Minutes Spent Total Time Spent with Patient: Total time spent is greater than 50% in coordination of care (as documented) at patient's floor/unit and/or counseling patient: C[place] [address] INT INP/OBS CARE 3/75MIN Patient Type Established Medical Decision Making High Complexity Diagnoses Failure to thrive in adult R62.7 Urinary tract infection N39.0; R31.9 Hematuria presence: with hematuria Urinary tract infection type: site unspecified Supratherapeutic INR R79.1 VINICIUS (acute kidney injury) N17.9 Nausea & vomiting R11.2 Pleural effusion J90 Thrombocytopenia D69.6 Cirrhosis K74.60 S/P AVR Z95.2 Diabetes E11.9 Hypothyroidism E03.9 (2) Urinary tract infection Hematuria presence: with hematuria Urinary tract infection type: site unspecified Qualified Code(s): N39.0 - Urinary tract infection, site not specified; R31.9 - Hematuria, unspecified
[2023-08-31] MEDS ORDERED: ONDANSETRON INJ 2 MG/ML 2 ML VIAL IV PRN (18:14)
[2023-08-31] MEDS ORDERED: GLUCOSE 10 TAB/TUBE PO PRN (18:22)
[2023-08-31] MEDS ORDERED: GLUCAGON FOR INJ 1 MG VIAL SQ PRN (18:22)
[2023-08-31] MEDS ORDERED: GLUCOSE 40% GEL 15 GM TUBE PO PRN (18:22)
[2023-08-31] MEDS: MIDODRINE HCL 2.5 MG TAB PO STA (19:16)
[2023-08-31] MEDS: INSULIN ASPART PER UNIT CHARGE SC SCH (20:12)
[2023-08-31] MEDS ORDERED: NON-FORMULARY MEDICATION (Ferrous Fumarate-Vitamin C 66-125 mg Tablet,Chewable) PO SCH (21:02)
[2023-08-31] MEDS ORDERED: SIMETHICONE 80 MG CHEW PO PRN (21:14)
[2023-08-31] MEDS: MIRTAZAPINE TAB 15 MG TAB PO SCH (22:26)
[2023-08-31] MEDS: SERTRALINE HCL 100 MG TABLET PO SCH (22:26)
[2023-08-31] MEDS: TAMSULOSIN HCL 0.4 MG CAP PO SCH (22:27)
[2023-08-31] MEDS: METOPROLOL TARTRATE 50 MG TAB PO SCH (22:55)
[2023-09-01] MEDS: LEVOTHYROXINE SODIUM 75 MCG TABLET PO SCH (06:03)
--- NOTE | 2023-09-01 07:36 | Hospitalist Progress Note ---
Date of Service September 01, 2023 Assessment & Plan (1) Thrombocytopenia: (2) Hypothyroidism: (3) Failure to thrive in adult: (4) Acute alteration in mental status: (5) Pleural effusion: (6) Urinary tract infection: (7) Acute dehydration: (8) Generalized weakness: (9) Anemia: (10) Cirrhosis: (11) Acute UTI (urinary tract infection): (12) CHF (congestive heart failure): (13) VINICIUS (acute kidney injury): Plan Failure to thrive in adult -Progressive clinical decline since his discharge from [facility] on 08/12/23 -His decline is likely multifactorial including his known cirrhosis, anemia, poor oral intake, and recurrent UTI's -Will consult our Template Maker for nutritional assessment, clear liquid diet for now -PT/OT consults -Clear liquid diet for now -AM CBC, CMP, mag, PT/INR Urinary tract infection -Unsure if he truly had a UTI last admission as his urine cultures was negative -UTI is likely due to recurrent bladder outlet obstructions as his marvin cath placed last admission was removed in the outpatient setting on 08/15/23 -Continue Ceftriaxone daily -Will have him bladder scanned on admission, prn straight cath's ordered for PVR equal to or greater than 300 cc -Many need recurrent marvin cath placement -Continue flomax Supratherapeutic INR -INR at 6.5 today -Has been checking his INR once weekly with results sent to his PCP for dosing adjustments -Likely a combination of his poor nutritional status and known cirrhosis -Did have some minor acute bleeding today with rectal bleeding and nose bleed -Ordered 2.5mg Vitamin K -Hemodynamically stable -Will hold warfarin for now and continue to monitor INR -Monitor daily INR, goal is 2.5-3.5 with his prosthetic aortic valve VINICIUS (acute kidney injury) -Cr of 2.20, baseline is near 1.7 -Likely a combination of hypotension from dehydration, cirrhosis, and continued metoprolol use and his chronic bladder outlet obstruction -Presented with a similar Cr last admission which improved with better control of his BP -He is high risk for 3rd spacing with his Cirrhosis and appears to be 3rd spacing on exam today but intravascularly depleted -Albumin is 3.6 on admission -Hold metoprolol and continue to hold lasix -Avoid nephrotoxic agents -Monitor daily renal function and electrolytes Nausea & vomiting -Patient has been experiencing post-prandial nausea and vomiting over the past 2 weeks -He states that he gets full easily and denies pain prior to or after vomiting -He has multiple possible etiologies including nausea/vomiting with UTI's, gastroparesis, and his known cirrhosis -Will add Protonix, Pepcid, Carafate and monitor for improvement in symptoms -PRN Zofran -Monitor for improvement with treatment of his UTI -Follow Template Maker consult -Aspiration precautions Pleural effusion -Patient's BL pleural effusions appear slightly more progressed than last admission -Likely due to his known cirrhosis and CHF -Currently stable on RA and not in respiratory distress -Pulmonology consulted, -Will have to hold diuresis for now with his labile BP on admission Thrombocytopenia -Noted to be 117 on admission, improved to 134 today -Likely due to his cirrhosis -Hold chemical DVT PPX for now -Monitor daily CBC Cirrhosis -Does not appear to be encephalopathic on exam, LFT's are stable -Has appointment with [facility] next month -Avoid nephrotoxic agents, monitor volume status closely -Monitor daily CMP and INR S/P AVR -Holding Warfarin for now with elevated INR -Goal INR is 2.5-3.5, monitor daily Diabetes -Monitor BSG q6h while on clears, goal is 110-160 -Start CF 50 q6h for now as his BSG is currently in the 90's -Nutrition consult placed Hypothyroidism -Continue levothyroxine Admission and Anticipated Discharge Date Admission Date: August 31, 2023 Supervising Physician Co-Signing Physician Notes I personally examined the patient and verified all saenz points of history and exam, discussed case, and agree with decision making with Dr Suazo stomach - at home - eating/full/nausea. vomiting postprandial x2 but limited PO intake due to satiety and nausea. did have very minor nosebleed just before we saw him (resolved on own without problem) and very small amount of blood w BM/on toilet paper (notes was very little and seems to have stopped) vitals noted nad heent nc at mmm breathing unlaobred no accessory muscles good effort skin no rashes no pallor or icterus neuro no focal deficits. abd soft mod distention can't really feel fluid wave/feels more gaseous than ascites no guarding no rebound not really much epigastric discomfort but maybe mildly; no guarding no rebound A/P failure to thriveseems to be multifactorial declinesuspect that his undefined, acutely seems to be severe, protein calorie malnutrition is a main player in his decline. At last admission we discussed nutrition in depth, had dietitian consult, but unfortunately since he has been home he has had postprandial nausea and early satiety making it impossible to reach nutrition goals. 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), I do wonder about mucosal illness such as early peptic ulcer disease or gastritis (does not have much tenderness, but certainly would be one of the most common reasons for these symptoms to ariseespecially given that he was quite septic during his last admission making a higher probability of a stress-induced gastritis)initiate acid suppression and follow, it is possible that it is a portal hypertensive ga stropathy (could consider EGDparticularly if he does not improve with medical management, but given that his CT looks awfully comparable as it relates to ascites from before, seems less likely to have new symptoms with the same CT findings). Coumadin coagulopathywith minor nosebleed minor rectal bleedingvitamin K 2.5 x 1. Follow-up INR tomorrow. Subjective No acute events reported overnight. Patient states he does not feel much better than yesterday, notes that since he has been home he has still had poor PO intake. Endorses some nausea and vomiting after eating at home. Also had a minor nose bleed and some rectal bleeding this afternoon. Review of Systems Review of Systems: As per above Physical Exam Constitutional: + frail appearing and cooperative; no ac [place] distress Eyes: + anicteric sclerae; no conjunctival abn ormality ENMT: Ears: no external ear abnormality Nose: no external nose abnormality Respiratory: normal respiratory effort Diminished lung bases bilaterally Cardiovascular: Rate/Rhythm: regular rate and regular rhythm Extremities: no edema Gastrointestinal (Abdomen): Inspection/Auscultation: + abdomen distended Percussion/Palpation: abdomen soft; abdomen nontender Musculoskeletal: Moves all limbs independently Skin: no rashes, warm and dry Neurologic: no focal motor deficits Psychiatric: A+Ox3, euthymic affect Results & Data Results & Data Vital Signs (Past 12 Hours) Vital Signs Temp Pulse Pulse Pulse Resp BP BP 09/01/23 03:17 35.9 C L 65 20 112/60 08/31/23 23:08 63 08/31/23 22:03 36.7 C 66 20 124/71 08/31/23 21:55 67 08/31/23 20:00 66 20 106/60 Pulse Ox O2 Del Method 09/01/23 03:17 90 Room Air 08/31/23 23:08 08/31/23 22:03 94 Room Air 08/31/23 21:55 08/31/23 20:00 95 Resident Activity Tracking Resident Involvement: Resident Care Provided Care Provided: Adult Hospital Medicine (6) Urinary tract infection Hematuria presence: with hematuria Urinary tract infection type: site unspecified Qualified Code(s): N39.0 - Urinary tract infection, site not specified; R31.9 - Hematuria, unspecified (9) Anemia Anemia type: unspecified type Qualified Code(s): D64.9 - Anemia, unspecified
[2023-09-01] MEDS: AMIODARONE 200 MG TAB PO SCH (08:42)
[2023-09-01] MEDS: METOPROLOL TARTRATE 25 MG TAB PO SCH (08:43)
[2023-09-01] MEDS: ARIPIprazole 1 MG/ML ORAL SOLN 150 ML BTL PO SCH (08:44)
[2023-09-01 09:28] LABS: Albumin Globulin Ratio 0.9 (0.9-2); Albumin Level 3.6 gm/dl (3.4-5.0); BUN Creatinine Ratio 23.4 (10-20); Bilirubin,Total 0.7 mg/dl (0.2-1.0); Calcium 9.2 mg/dl (8.6-10.3); Creatinine Clr Calc Pharmacy 25.9 ml/min; Est GFR (African American) 30.4 ml/min; Est GFR (Non-African American) 26.3 ml/min; Globulin 4.2 gm/dl (2.5-4.0); Magnesium 2.5 mg/dl (1.7-2.4); Potassium 4.9 mmol/L (3.5-5.1); Prothrombin Time 62.9 Seconds (9.0-12.0); Total Protein 7.8 gm/dl (6.0-8.3)
--- NOTE | 2023-09-01 09:30 | Pulmonary Consultation ---
Date of Consultation September 01, 2023 Assessment & Plan (1) Volume overload: (2) Cirrhosis: (3) Bilateral pleural effusion: (4) Supratherapeutic INR: Plan Patient is currently comfortable on room air. He has a moderate sized right pleural effusion on ultrasound and a small left-sided effusion with some compressive atelectasis. He also has small to moderate volume ascites. 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 His volume overloaded state may also be related to low oncotic pressure and low protein intake. Recommend dietitian consult. Recommend diuresis as able. He is not a candidate for thoracentesis at this time given his supratherapeutic INR nor do I think a therapeutic thoracentesis would make a huge difference in symptoms at this time. Would favor conservative approach with diuresis as mentioned previously. Goals of care discussion would be prudent in this patient with multiple comorbidities. History of Present Illness Reason for Consultation: "Progressive bilateral pleural effusions" Attending Physician: Bismark Helm DO History of Present Illness 78-year-old male with a complex history of thrombocytopenia, cirrhosis, aortic valve replacement on Coumadin and CHF presenting to the hospital due to general malaise and decreased p.o. intake. Reportedly the patient has had increased abdominal distention and shortness of breath per the ER note. The patient denies any complaints to me and is generally a poor historian. He notes that he is not able to "run any marathons", but he denies any shortness of breath with his daily activities. He denies any fevers, chills, night sweats or cough. His labs are significant for anemia of chronic disease. His BMP was significant for mild VINICIUS. Baseline creatinine around 1.8. He has a mild transaminitis. proBNP elevated to 891. Repeat labs are pending. Chest x-ray revealed bilateral pleural effusions, right greater than left. I performed a bedside pleural ultrasound which revealed a moderate-sized free-flowing right pleural effusion and a small left pleural effusion with compressive atelectasis. Allergies Allergy/AdvReac Type Severity Reaction Status Date / Time plasma Allergy Severe frozen Uncoded 08/31/23 14:08 plasma - developed hives Home Medications Medication Instructions Recorded Confirmed Type amiodarone 200 mg tablet 100 mg PO QAM 10/07/22 08/31/23 History cholecalciferol (vitamin D3) 50 50 mcg PO .@199910/07/22 08/31/23 History mcg (2,000 unit) capsule clonazepam 0.5 mg tablet 0.5 mg PO DAILY PRN Anxiety 10/07/22 08/31/23 History fenofibric acid (choline) 135 mg 135 mg PO QAM 10/07/22 08/31/23 History capsule,delayed release furosemide 20 mg tablet 0 mg PO QAM 10/07/22 08/31/23 History hydrocortisone acetate 1 % topical 1 applic topical BID PRN Skin 10/07/22 08/31/23 History cream Irritation metformin 1,000 mg tablet 0 mg PO BID 10/07/22 08/31/23 History metoprolol tartrate 25 mg tablet 50 mg PO .@199910/07/22 08/31/23 History pantoprazole 40 mg tablet,delayed 40 mg PO .@169910/07/22 08/31/23 History release aripiprazole 2 mg tablet (Abilify) 2 mg PO QAM 11/14/22 08/31/23 History simethicone 125 mg capsule 125 mg PO DAILY PRN gas pain 11/14/22 08/31/23 History metoprolol tartrate 25 mg tablet 25 mg PO QAM 11/25/22 08/31/23 History sertraline 100 mg tablet 100 mg PO .@199911/25/22 08/31/23 History tamsulosin 0.4 mg capsule 0.4 mg PO .@199911/25/22 08/31/23 History ferrous fumarate-vitamin C 66 1 tab PO 3XWK ##0 08/08/23 08/31/23 History mg-125 mg chewable tablet warfarin 2 mg tablet 3 mg PO DAILY 08/08/23 08/31/23 History cyanocobalamin (vitamin B-12) 1,000 mcg PO DAILY 08/31/23 08/31/23 History 1,000 mcg tablet (Vitamin B-12) levothyroxine 75 mcg tablet 75 mcg PO .NOON 08/31/23 08/31/23 History (Synthroid) mirtazapine 7.5 mg tablet 15 mg PO HS 08/31/23 08/31/23 History Patient History Medical History (Updated 09/01/23 @ 09:28 by Clinton Porras MD) Bilateral pleural effusion Volume overload Indwelling Duran catheter present Diabetes mellitus, type 2 NIDDM Osteoarthritis GERD (gastroesophageal reflux disease) Anxiety Hx of prostatic malignancy Spring 2020 Treated with radiation treatments Hx of aortic aneurysm s/p107/2020 in [facility] Follows with [facility] Hypertension Suspected sleep apnea History of COVID-19 x2 Most recent home test positive 10/13/22- asymptomatic (tested d/t family members were positive) History of fractured vertebra Cervical fracture 11/18/21- medical management recommended, follows with physical therapy, "full ROM" per patient Surgical History History of flexible sigmoidoscopy History of colonoscopy History of cholecystectomy History of appendectomy History of prostate surgery to stop prostate bleeding in Summer 2020 History of aortic aneurysm repair 05/2021 in [facility] Follows with [facility] H/O heart surgery graphite aortic valve placed in [place] at age 44. (a [facility]) Family History Mother Diabetes Hypertension Father Diabetes Other No family history of adverse response to anesthesia Social History Smoking Status: Never smoker Second Hand Exposure: No; Do You Dip or Chew Tobacco: No; Hx Alcohol Use: No Hx Substance Use: No Preferred Language: Yoruba Communication Ability: Effective Composing Room Machinist Required: No Beliefs That Will Affect Care: None marital status: Current Living Situation: Spouse current occupational status: retired Feels Safe at Home: No Is there a partner from a previous relationship who is making you feel unsafe now?: No Assistive Devices: Cane, Walker and Wheelchair Review of Systems Review of Systems: All systems reviewed & are unremarkable except as noted in HPI & below Physical Exam Physical Exam: Constitutional: Patient appears to be of their stated age. Patient is in no apparent distress. Patient is well-developed. Eyes: Pupils are equal round and reactive to light. Conjunctivae are normal. Anicteric sclera. Ears nose, mouth and throat: Mallampati class 2. Normal posterior oropharynx. Uvula is midline. Neck: Trachea is midline. Visual inspection is normal. Respiratory: Crackles bilaterally. No increased work of breathing. Cardiovascular: Regular rate and rhythm. No murmurs, rubs or gallops Gastrointestinal: Mildly distended. But nontender to palpation. Positive fluid wave. Musculoskeletal: No cyanosis. Patient is able to move all extremities. Strength is 5 out of 5 in the upper and lower extremities. Skin: No rashes, warm dry and intact. Neurologic: No obvious focal neurological deficits seen. Psychiatric: Alert and oriented x3 with a euthymic affect. Results & Data Results & Data Vital Signs (Past 12 Hours) Vital Signs Temp Pulse Pulse Pulse Resp BP Pulse Ox 09/01/23 07:37 64 09/01/23 07:37 36.4 C L 66 16 124/69 94 09/01/23 03:17 35.9 C L 65 20 112/60 90 08/31/23 23:08 63 08/31/23 22:03 36.7 C 66 20 124/71 94 08/31/23 21:55 67 O2 Del Method 09/01/23 07:37 09/01/23 07:37 Room Air 09/01/23 03:17 Room Air 08/31/23 23:08 08/31/23 22:03 Room Air 08/31/23 21:55 PG Care Time/CCT Total # of Minutes Spent Total Time Spent with Patient: Total time spent is greater than 50% in coordination of care (as documented) at patient's floor/unit and/or counseling patient: Coding Level of Care Code 85845 INT INP/OBS CARE 3/75MIN Diagnoses Volume overload E87.70 Cirrhosis K74.60 Bilateral pleural effusion J90 Supratherapeutic INR R79.1
[2023-09-01 09:38] LABS: Anisocytosis Present; Basophils # (auto) 0.05 K/uL (0.00-0.20); Basophils % (auto) 1.1 %; Eosinophils # (auto) 0.29 K/uL (0.00-0.50); Eosinophils % (auto) 6.4 %; Hematocrit (blood only) 30.2 % (42.0-52.0); Immature Granulocytes # (auto) 0.01 K/uL (0.01-0.20); Immature Granulocytes % (auto) 0.2 %; Lymphocytes # (auto) 0.57 K/uL (1.20-3.40); Lymphocytes % (auto) 12.6 %; Mean Corpuscular Hemoglobin 28.1 pg (25.0-34.0); Mean Corpuscular Hgb Conc 29.8 g/dL (32.0-36.0); Mean Corpuscular Volume 94.4 fL (80.0-100.0); Mean Platelet Volume 12.5 fL (9.4-12.4); Monocytes # (auto) 0.42 K/uL (0.11-0.59); Monocytes % (auto) 9.3 %; Neutrophils % (auto) 70.4 %; Platelet Count 134 K/uL (130-400); Polychromasia 1+; RDW Coefficient of Variation 20.4 % (11.5-14.5); RDW Standard Deviation 70.6 fL (36.4-46.3); Tear Drop Cells 1+; White Blood Count 4.54 K/ul (4.8-10.8)
[2023-09-01 09:43] LABS: INR 6.5 (0.9-1.1)
[2023-09-01] MEDS ORDERED: Nursing to Pharmacy Communication SCH (10:00)
[2023-09-01] MEDS: INSULIN ASPART PER UNIT CHARGE SC SCH (12:25)
--- NOTE | 2023-09-01 13:28 | Electrocardiogram Report ---
Test Reason : Blood Pressure : / mmHG Vent. Rate : 064 BPM Atrial Rate : 064 BPM P-R Int : 242 ms QRS Dur : 086 ms QT Int : 428 ms P-R-T Axes : 010 -01 049 degrees QTc Int : 441 ms Sinus rhythm with 1st degree A-V block Low voltage QRS Septal infarct (cited on or before 10-AUG-2023) Abnormal ECG When compared with ECG of 10-AUG-2023 21:02, SC interval has increased Nonspecific T wave abnormality now evident in Anterior leads Confirmed by Randall Elizalde ([id number]) on 09/01/2023 1:27:53 PM Referred By: REFERRED SELF Confirmed By:Randall Elizalde
[2023-09-01] MEDS: PHYTONADIONE 2.5 MG in DEXTROSE 5% 50 ML IV ONE (16:53)
[2023-09-01] MEDS: cefTRIAXone SODIUM 2,000 MG in DEXTROSE 5 % MINI-B 50 ML IV SCH (17:25)
[2023-09-01] MEDS: ASCORBIC ACID 500 MG TAB PO SCH (17:29)
[2023-09-01] MEDS: FERROUS SULFATE 325 MG TAB PO SCH (17:31)
[2023-09-01] MEDS: SUCRALFATE 1 GM/10 ML UDC PO SCH (17:52)
--- NOTE | 2023-09-01 17:58 | Billing Data ---
Date of Service September 01, 2023 Coding Level of Care Code 38592 SUB INP/OBS CARE MIN
[2023-09-01] MEDS: ONDANSETRON INJ 2 MG/ML 2 ML VIAL IV SCH (18:37)
[2023-09-01] MEDS: PANTOprazole 40 MG in SYRINGE 0 ML IV SCH (20:12)
[2023-09-01] MEDS ORDERED: FAMOTIDINE 200 MG/20 ML VIAL IV SCH (21:00)
[2023-09-01] MEDS ORDERED: PANTOprazole 40 MG TAB PO SCH (21:30)
[2023-09-01] MEDS: FAMOTIDINE 20 MG in SYRINGE 3 ML IV SCH (21:30)
[2023-09-01] MEDS: MICONAZOLE NITRATE POWDER 85 GM EXT PRN (21:32)
[2023-09-02] MEDS: clonazePAM 0.5 MG TAB PO PRN (01:12)
[2023-09-02 07:00] LABS: Basophils # (auto) 0.05 K/uL (0.00-0.20); Eosinophils # (auto) 0.26 K/uL (0.00-0.50); Hematocrit (blood only) 27.7 % (42.0-52.0); Hemoglobin 8.4 g/dl (14.0-18.0); Immature Granulocytes # (auto) 0.01 K/uL (0.01-0.20); Immature Granulocytes % (auto) 0.2 %; Lymphocytes # (auto) 0.35 K/uL (1.20-3.40); Lymphocytes % (auto) 6.7 %; Mean Corpuscular Hemoglobin 28.4 pg (25.0-34.0); Mean Corpuscular Hgb Conc 30.3 g/dL (32.0-36.0); Mean Corpuscular Volume 93.6 fL (80.0-100.0); Mean Platelet Volume 12.1 fL (9.4-12.4); Monocytes # (auto) 0.55 K/uL (0.11-0.59); Monocytes % (auto) 10.5 %; Neutrophils # (auto) 4.02 K/uL (1.40-6.50); Neutrophils % (auto) 76.6 %; Platelet Count 124 K/uL (130-400); RDW Coefficient of Variation 20.2 % (11.5-14.5); RDW Standard Deviation 69.4 fL (36.4-46.3); Red Blood Count 2.96 M/uL (4.70-6.10); White Blood Count 5.24 K/ul (4.8-10.8)
--- NOTE | 2023-09-02 07:15 | Hospitalist Progress Note ---
Date of Service September 02, 2023 Assessment & Plan (1) Thrombocytopenia: (2) Hypothyroidism: (3) Failure to thrive in adult: (4) Acute alteration in mental status: (5) Pleural effusion: (6) Urinary tract infection: (7) Acute dehydration: (8) Generalized weakness: (9) Anemia: (10) Cirrhosis: (11) Acute UTI (urinary tract infection): (12) CHF (congestive heart failure): (13) VINICIUS (acute kidney injury): Plan Failure to thrive in adult -Progressive clinical decline since his discharge from [facility] on 08/12/23 -His decline is likely multifactorial including his known cirrhosis, anemia, poor oral intake, and recurrent UTI's -Will consult our Soil Analyst for nutritional assessment, clear liquid diet for now -PT/OT consults -Clear liquid diet for now, 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 at last admission had concerns for aspiration and diet orders updated to reflect this -AM CBC, CMP, mag, PT/INR Acute Hypoxia | New Oxygen Requirement -2L NC required this morning due to hypoxia -CXR without acute changes -Ordered IV lasix and breathing treatment -returned to room air this afternoon Urinary tract infection -Unsure if he truly had a UTI last admission as his urine cultures was negative -UTI is likely due to recurrent bladder outlet obstructions as his marvin cath placed last admission was removed in the outpatient setting on 08/15/23 -Continue Ceftriaxone daily -Will have him bladder scanned on admission, prn straight cath's ordered for PVR equal to or greater than 300 cc -Many need recurrent marvin cath placement -Continue flomax Supratherapeutic INR -INR at 3.2 today -Has been checking his INR once weekly with results sent to his PCP for dosing adjustments -Likely a combination of his poor nutritional status and known cirrhosis -Did have some minor acute bleeding today with rectal bleeding and nose bleed -Received 2.5mg Vitamin K on 09/01 -Hemodynamically stable -Will resume Warfarin at 1mg daily (at reduced dose) and monitor INR -Monitor daily INR, goal is 2.5-3.5 with his prosthetic aortic valve VINICIUS (acute kidney injury) -Cr of 2.26, baseline is near 1.7 -Likely a combination of hypotension from dehydration, cirrhosis, and continued metoprolol use and his chronic bladder outlet obstruction -Presented with a similar Cr last admission which improved with better control of his BP -He is high risk for 3rd spacing with his Cirrhosis and appears to be 3rd spacing on exam today but intravascularly depleted -Albumin is 3.6 on admission -Hold metoprolol, gave Lasix 20mg this morning -Avoid nephrotoxic agents -Monitor daily renal function and electrolytes Nausea & vomiting -Patient has been experiencing post-prandial nausea and vomiting over the past 2 weeks -He states that he gets full easily and denies pain prior to or after vomiting -He has multiple possible etiologies including nausea/vomiting with UTI's, gastroparesis, and his known cirrhosis -Will add Protonix, Pepcid, Carafate and monitor for improvement in symptoms -PRN Zofran -Monitor for improvement with treatment of his UTI -Follow Soil Analyst consult -Aspiration precautions Pleural effusion -Patient's BL pleural effusions appear slightly more progressed than last admission -Likely due to his known cirrhosis and CHF -Currently stable on RA and not in respiratory distress -Pulmonology consulted Thrombocytopenia -Noted to be 117 on admission, improved to 134 today -Likely due to his cirrhosis -Hold chemical DVT PPX for now -Monitor daily CBC Cirrhosis -Does not appear to be encephalopathic on exam, LFT's are stable -Has appointment with [facility] next month -Avoid nephrotoxic agents, monitor volume status closely -Monitor daily CMP and INR S/P AVR -Holding Warfarin for now with elevated INR -Goal INR is 2.5-3.5, monitor daily Diabetes -Monitor BSG q6h while on clears, goal is 110-160 -Start CF 50 q6h for now as his BSG is currently in the 90's -Nutrition consult placed Hypothyroidism -Continue levothyroxine Admission and Anticipated Discharge Date Admission Date: August 31, 2023 Supervising Physician Co-Signing Physician Notes I personally examined the patient and verified all saenz points of history and exam, discussed case, and agree with decision making with Dr Suazo More delirious today. Hard to tell how well he would have been done eating. Notes that he feels about the same, but HPI and review of systems fairly unreliable. , and then daughterpresent. Updated to the best my ability and to their satisfaction. Breathing feels okay vitals noted nad heent nc at mmm lungs diminished bibasilar no rales rhonchi or wheezes no accessory muscle use, he is on 2 L whenever I see him both times. Abdomen is soft nondistended nontender. A/P failure to thriveseems to be multifactorial declinesuspect that his undefined, acutely seems to be severe, protein calorie malnutrition is a main player in his decline. At last admission we discussed nutrition in depth, had dietitian consult, but unfortunately since he has been home he has had postprandial nausea and early satiety making it impossible to reach nutrition goals. Postprandial nausea/early satietyMain differentials would be stress gastritis (was septic at last admission), versus an unfortunate overall decline from ma lnutrition/third spacing/gut edema versus other. Just started aggressive acid suppression yesterday for stress gastritishopefully will start to see some improvement in his p.o. intakeobviously his delirium will complicate matters as far as how much poor p.o. intake might be from his stomach versus how much might be volitional if he does not improvebut given how critical his situation is nutritionally, will need to essentially use today and tomorrow as a wraparound him. If he still not able to eat and drink well and it is not clear what is going ongiven that and overall failure to thrive/severe malnutrition decline is unfortunately high on the differential, and he had discussed with his family recently that he would want a trial of tube feedswe discussed that it would be reasonable to place an NG tube to see if his body could tolerate goal nutrition. For nowstay the course with acid suppression and encourage p.o. intake, liberalize diet, by tomorrow if he is not showing improvement, may need to consider NG tube and trial of tube feeds. Biggest concern is his what appears to be acutely severe protein calorie malnutrition may be driving major failure to thrive. Coumadin coagulopathywith minor nosebleed minor rectal bleedingvitamin K 2.5 x 1 - INR now 3.2 - given mechanical valve give coumadin 1mg today, follow INR Subjective Patient seen and examined at bedside. This morning, was notified by nursing due to concern of garbled speech and possible left sided facial droop. Went to bedside on multiple occasions, patient was alert and oriented to self/place/time but appeared fatigued. Minimal "droop" at left side was noted when trying to drink from straw on that side. Patient denies any current symptoms, states he is feeling a bit better than yesterday. Review of Systems Review of Systems: As per above Physical Exam Constitutional: + frail appearing and cooperative; no ac [place] distress Eyes: + anicteric sclerae; no conjunctival abn ormality ENMT: Ears: no external ear abnormality Nose: no external nose abnormality Respiratory: normal respiratory effort Cardiovascular: Rate/Rhythm: regular rate and regular rhythm Extremities: no edema Gastrointestinal (Abdomen): Inspection/Auscultation: + abdomen distended Percussion/Palpation: abdomen soft; abdomen nontender Skin: no rashes, warm and dry Neurologic: CN's II-XI intact bilaterally (very minimal left sided facial droop, isolated abnormality) Motor/Sensory: no sensory deficit Cranial Nerves: tongue midline, able to rotate head bilaterally, able to elevate shoulders bilaterally and symmetric palate elevation Psychiatric: A+Ox3, euthymic affect Results & Data Results & Data Vital Signs (Past 12 Hours) Vital Signs Temp Pulse Pulse Resp BP BP Pulse Ox 09/02/23 07:08 77 09/02/23 02:44 37.4 C 82 19 154/80 H 99 09/02/23 00:41 72 09/01/23 23:20 36.5 C 72 18 124/66 95 09/01/23 19:40 36.5 C 67 20 124/71 94 O2 Del Method 09/02/23 07:08 09/02/23 02:44 Room Air 09/02/23 00:41 09/01/23 23:20 Room Air 09/01/23 19:40 Room Air Resident Activity Tracking Resident Involvement: Resident Care Provided Care Provided: Adult Hospital Medicine (6) Urinary tract infection Hematuria presence: with hematuria Urinary tract infection type: site unspecified Qualified Code(s): N39.0 - Urinary tract infection, site not specified; R31.9 - Hematuria, unspecified (9) Anemia Anemia type: unspecified type Qualified Code(s): D64.9 - Anemia, unspecified
[2023-09-02 07:16] LABS: Anisocytosis Present; Polychromasia 1+
[2023-09-02 07:24] LABS: Albumin Globulin Ratio 0.9 (0.9-2); Albumin Level 3.4 gm/dl (3.4-5.0); BUN Creatinine Ratio 24.1 (10-20); Bilirubin,Total 0.7 mg/dl (0.2-1.0); Calcium 8.8 mg/dl (8.6-10.3); Creatinine Clr Calc Pharmacy 28.2 ml/min; Est GFR (African American) 33.8 ml/min; Est GFR (Non-African American) 29.1 ml/min; Globulin 3.8 gm/dl (2.5-4.0); Magnesium 2.4 mg/dl (1.7-2.4); Potassium 4.9 mmol/L (3.5-5.1); Total Protein 7.2 gm/dl (6.0-8.3)
[2023-09-02 07:29] LABS: INR 3.2 (0.9-1.1); Prothrombin Time 32.4 Seconds (9.0-12.0)
[2023-09-02] MEDS: FUROSEMIDE INJ 20 MG/2 ML VIAL IV STA (08:01)
[2023-09-02] MEDS: ALBUT/IPRATROP 3MG/0.5MG NEB 3 ML VIAL NEB PRN (08:06)
--- NOTE | 2023-09-02 08:31 | XRay Report ---
XR chest 1V portable CLINICAL HISTORY: new oxygen requirement COMPARISON STUDY: Chest radiograph August 31, 2023. FINDINGS: There is no pneumothorax. [id number] bilateral pleural effusions with associated bib asilar opacities persist. Pulmonary edema is similar to prior exam. There are median sternotomy wires . Cardiomegaly is unchanged. IMPRESSION: Persistent pulmonary edema with small to moderate bilateral pleural effusions and associ ated bibasilar opacities. ACT 112: Negative or not required by law. Electronically signed by: Atif Langston M.D. 09/02/2023 8:30 AM
[2023-09-02] MEDS: CARBOHYDRATES FOR HYPOGLYCEMIA PO PRN (08:57)
[2023-09-02 16:36] LABS: BUN Creatinine Ratio 21.7 (10-20); Calcium 8.7 mg/dl (8.6-10.3); Creatinine Clr Calc Pharmacy 26.5 ml/min; Est GFR (African American) 31.3 ml/min; Potassium 4.9 mmol/L (3.5-5.1)
[2023-09-02] MEDS: WARFARIN SOD 1 MG TAB PO SCH (16:45)
--- NOTE | 2023-09-02 19:48 | Billing Data ---
Date of Service September 02, 2023 Coding Level of Care Code 17746 SUB INP/OBS CARE MIN
[2023-09-03 04:38] LABS: Albumin Globulin Ratio 0.9 (0.9-2); Albumin Level 3.5 gm/dl (3.4-5.0); BUN Creatinine Ratio 22.8 (10-20); Bilirubin,Total 0.6 mg/dl (0.2-1.0); Creatinine Clr Calc Pharmacy 27.8 ml/min; Est GFR (African American) 33.2 ml/min; Est GFR (Non-African American) 28.6 ml/min; Globulin 3.9 gm/dl (2.5-4.0); Magnesium 2.4 mg/dl (1.7-2.4); Potassium 4.9 mmol/L (3.5-5.1); Total Protein 7.4 gm/dl (6.0-8.3)
[2023-09-03 04:39] LABS: Anisocytosis Present; Basophils # (auto) 0.05 K/uL (0.00-0.20); Basophils % (auto) 1.1 %; Eosinophils # (auto) 0.32 K/uL (0.00-0.50); Eosinophils % (auto) 7.3 %; Hematocrit (blood only) 29.4 % (42.0-52.0); Hemoglobin 8.6 g/dl (14.0-18.0); Hypochromasia Present; Immature Granulocytes # (auto) 0.02 K/uL (0.01-0.20); Immature Granulocytes % (auto) 0.5 %; Lymphocytes # (auto) 0.47 K/uL (1.20-3.40); Lymphocytes % (auto) 10.7 %; Mean Corpuscular Hemoglobin 27.9 pg (25.0-34.0); Mean Corpuscular Hgb Conc 29.3 g/dL (32.0-36.0); Mean Corpuscular Volume 95.5 fL (80.0-100.0); Mean Platelet Volume 11.7 fL (9.4-12.4); Monocytes # (auto) 0.56 K/uL (0.11-0.59); Monocytes % (auto) 12.8 %; Neutrophils # (auto) 2.96 K/uL (1.40-6.50); Neutrophils % (auto) 67.6 %; Platelet Count 126 K/uL (130-400); RDW Coefficient of Variation 19.9 % (11.5-14.5); RDW Standard Deviation 69.3 fL (36.4-46.3); Red Blood Count 3.08 M/uL (4.70-6.10); Tear Drop Cells 1+; White Blood Count 4.38 K/ul (4.8-10.8)
[2023-09-03 04:53] LABS: INR 2.4 (0.9-1.1); Prothrombin Time 25.2 Seconds (9.0-12.0)
[2023-09-03] MEDS: FUROSEMIDE INJ 20 MG/2 ML VIAL IV ONE (10:07)
--- NOTE | 2023-09-03 14:20 | Hospitalist Progress Note ---
"Date of Service September 03, 2023 Assessment & Plan (1) Thrombocytopenia: (2) Hypothyroidism: (3) Failure to thrive in adult: (4) Acute alteration in mental status: (5) Pleural effusion: (6) Urinary tract infection: (7) Acute dehydration: (8) Generalized weakness: (9) Anemia: (10) Cirrhosis: (11) Acute UTI (urinary tract infection): (12) CHF (congestive heart failure): (13) VINICIUS (acute kidney injury): Plan Failure to thrive in adult -Progressive clinical decline since his discharge from [facility] on 08/12/23 -His decline is likely multifactorial including his known cirrhosis, anemia, poor oral intake, and recurrent UTI's -PT/OT consults -PT also notes some left sided weakness on exam, minimal left facial droop in prior days. Majority of weakness likely secondary to failure to thrive, although discussed that if stroke is etiology, would not change current plan for management (i.e. thrombolytic) as patient has been supratherapeutic with INR -NG tube will be placed today, will start tube feeds and titrate up to goal rate. -Bank Teller Machine Mechanic consulted for management of tube feeds. Will start daily thiamine -Patient can be offered meal trays in addition -AM CBC, CMP, mag, PT/INR Acute Hypoxia | New Oxygen Requirement -2L NC required due to hypoxia -CXR without acute changes -Ordered additional IV lasix Urinary tract infection -Unsure if he truly had a UTI last admission as his urine cultures was negative -UTI is likely due to recurrent bladder outlet obstructions as his marvin cath placed last admission was removed in the outpatient setting on 08/15/23 -Continue Ceftriaxone daily -Will have him bladder scanned on admission, prn straight cath's ordered for PVR equal to or greater than 300 cc -Many need recurrent marvin cath placement -Continue flomax Delirium -Patient has had significant delirium during prior admissions -Has had delirium/agitation overnight Supratherapeutic INR -INR at 2.4 today -Has been checking his INR once weekly with results sent to his PCP for dosing adjustments -Likely a combination of his poor nutritional status and known cirrhosis -Did have some minor acute bleeding on 09/01 with rectal bleeding and nose bleed -Received 2.5mg Vitamin K on 09/01 -Hemodynamically stable -Received 1mg of Warfarin, will increase to 2mg this afternoon -Monitor daily INR, goal is 2.5-3.5 with his prosthetic aortic valve VINICIUS (acute kidney injury) -Cr of 2.26, baseline is near 1.7 -Likely a combination of hypotension from dehydration, cirrhosis, and continued metoprolol use and his chronic bladder outlet obstruction -Presented with a similar Cr last admission which improved with better control of his BP -He is high risk for 3rd spacing with his Cirrhosis and appears to be 3rd spacing on exam today but intravascularly depleted -Albumin is 3.6 on admission -Hold metoprolol, gave Lasix 20mg this morning -Avoid nephrotoxic agents -Monitor daily renal function and electrolytes Nausea & vomiting -Patient has been experiencing post-prandial nausea and vomiting over the past 2 weeks -He states that he gets full easily and denies pain prior to or after vomiting -He has multiple possible etiologies including nausea/vomiting with UTI's, gastroparesis, and his known cirrhosis -Will add Protonix, Pepcid, Carafate and monitor for improvement in symptoms -PRN Zofran -Monitor for improvement with treatment of his UTI -Follow Bank Teller Machine Mechanic consult as above -Aspiration precautions Pleural effusion -Patient's BL pleural effusions appear slightly more progressed than last admission -Likely due to his known cirrhosis and CHF -Currently stable on RA and not in respiratory distress -Pulmonology consulted Thrombocytopenia -Noted to be 117 on admission, improved to 126 today -Likely due to his cirrhosis -Monitor daily CBC Cirrhosis -Does not appear to be encephalopathic on exam, LFT's are stable -Has appointment with [facility] next month -Avoid nephrotoxic agents, monitor volume status closely -Monitor daily CMP and INR S/P AVR -Holding Warfarin for now with elevated INR -Goal INR is 2.5-3.5, monitor daily Diabetes -Monitor BSG q6h, goal is 110-160 -Nutrition consult placed Hypothyroidism -Continue levothyroxine Admission and Anticipated Discharge Date Admission Date: August 31, 2023 Supervising Physician Co-Signing Physician Notes I personally examined the patient and verified all saenz points of history and exam, discussed case, and agree with decision making with Dr Gabriele ONEILL attempted - unable to be placed despite multiple attempts. vitals noted nad breathing unlabored no pallor or icterus. updated A/P failure to thriveseems to be multifactorial declinesuspect that his undefined, acutely seems to be severe, protein calorie malnutrition is a main player in his decline. At last admission we discussed nutrition in depth, had dietitian consult, but unfortunately since he has been home he has had postprandial nausea and early satiety making it impossible to reach nutrition goals. Postprandial nausea/early satietyMain differentials would be stress gastritis (was septic at last admission), versus an unfortunate overall decline from malnutrition/third spacing/gut edema versus other. not doing better yet despite aggressive acid suppression - after d/w family - NGT to follow for ?can he tolerate adequate nutrition//bridge to get through delirium - but was unable to place today. continue to encourage PO intake and follow into tomorrow - if still not improving then consider reattempt acute on chronic diastolic CHF - not having large O2 requirement but still needs supplemental O2; Xray still looking wet - additional lasix Coumadin coagulopathywith minor nosebleed minor rectal bleedingvitamin K 2.5 x 1 - INR now 2.4 - coumadin 2mg today and follow otherwise as above Subjective Patient seen and examined at bedside. Overnight patient did not sleep, was very delirious. Was placed on 2L NC, has had some intermittent coughing. Continues to have very minimal PO intake. Review of Systems Review of Systems: As per above Physical Exam Constitutional: + frail appearing and cooperative; no ac [place] distress Eyes: + anicteric sclerae; no conjunctival abn ormality ENMT: Ears: no external ear abnormality Nose: no external nose abnormality Respiratory: normal respiratory effort Cardiovascular: Rate/Rhythm: regular rate and regular rhythm Extremities: no edema Gastrointestinal (Abdomen): Inspection/Auscultation: + abdomen distended Percussion/Palpation: abdomen soft; abdomen nontender Skin: no rashes, warm and dry Neurologic: CN's II-XI intact bilaterally (very minimal left sided facial droop, isolated abnormality); no focal motor deficits Results & Data Results & Data Vital Signs (Past 12 Hours) Vital Signs Temp Pulse Pulse Resp BP BP Pulse Ox 09/03/23 11:40 36.7 C 64 18 128/68 100 09/03/23 11:35 96 09/03/23 10:56 09/03/23 07:53 37.3 C 63 20 146/70 H 96 09/03/23 07:40 74 O2 Del Method O2 Flow Rate 09/03/23 11:40 Nasal Cannula 2 09/03/23 11:35 09/03/23 10:56 Nasal Cannula 2 09/03/23 07:53 Nasal Cannula 2 09/03/23 07:40 (6) Urinary tract infection Hematuria presence: with hematuria Urinary tract infection type: site unspecified Qualified Code(s): N39.0 - Urinary tract infection, site not specified; R31.9 - Hematuria, unspecified (9) Anemia Anemia type: unspecified type Qualified Code(s): D64.9 - Anemia, unspecified"
[2023-09-03] MEDS ORDERED: NUTREN LIQD 2.0 1,000 ML BAG GT SCH (15:15)
--- NOTE | 2023-09-03 15:41 | XRay Report ---
KUB CLINICAL HISTORY: Enteric tube placement. FINDINGS: 2 AP, portable, upright views of the lower chest and upper abdomen are correlated with abdo sahnnon CT dated 08/31/2023. An enteric tube has been placed. This is coiled in the distal esophagus. Th ere is no radiographic evidence of high-grade bowel obstruction. No intraperitoneal free air is seen below the diaphragm. Surgical clips project over the right abdomen. The patient is status post midlin e sternotomy. The heart is enlarged with evidence of congestive failure. There are layering pleural e ffusions with dependent consolidation. IMPRESSION: 1. An enteric tube has been placed and is coiled in the esophagus. Repositioning is indicated. 2. There is no radiographic evidence of high-grade bowel obstruction. 3. Cardiomegaly with evidence of congestive failure and layering pleural effusions Electronically signed by: Fuad Almaraz M.D. 09/03/2023 3:40 PM
[2023-09-03] MEDS: TUBE FEEDING WATER FLUSH GT SCH (16:59)
[2023-09-03] MEDS: WARFARIN SOD 2 MG TAB PO SCH (17:09)
[2023-09-03] MEDS: FUROSEMIDE 40 MG/4 ML VIAL IV ONE (17:45)
--- NOTE | 2023-09-03 18:02 | Billing Data ---
Date of Service September 03, 2023 Coding Level of Care Code 07821 SUB INP/OBS CARE MIN
[2023-09-04 05:32] LABS: Albumin Globulin Ratio 0.9 (0.9-2); Albumin Level 3.3 gm/dl (3.4-5.0); BUN Creatinine Ratio 22.4 (10-20); Bilirubin,Total 0.6 mg/dl (0.2-1.0); Calcium 8.6 mg/dl (8.6-10.3); Creatinine Clr Calc Pharmacy 27.3 ml/min; Est GFR (African American) 32.5 ml/min; Globulin 3.8 gm/dl (2.5-4.0); Potassium 4.9 mmol/L (3.5-5.1); Total Protein 7.1 gm/dl (6.0-8.3)
[2023-09-04 05:40] LABS: Basophils # (auto) 0.03 K/uL (0.00-0.20); Basophils % (auto) 0.7 %; Eosinophils # (auto) 0.21 K/uL (0.00-0.50); Hematocrit (blood only) 27.9 % (42.0-52.0); Hemoglobin 8.4 g/dl (14.0-18.0); Immature Granulocytes # (auto) 0.01 K/uL (0.01-0.20); Immature Granulocytes % (auto) 0.2 %; Lymphocytes # (auto) 0.44 K/uL (1.20-3.40); Lymphocytes % (auto) 10.5 %; Mean Corpuscular Hgb Conc 30.1 g/dL (32.0-36.0); Mean Platelet Volume 12.3 fL (9.4-12.4); Monocytes # (auto) 0.53 K/uL (0.11-0.59); Monocytes % (auto) 12.7 %; Neutrophils # (auto) 2.96 K/uL (1.40-6.50); Neutrophils % (auto) 70.9 %; Platelet Count 122 K/uL (130-400); Prothrombin Time 30.5 Seconds (9.0-12.0); RDW Coefficient of Variation 19.8 % (11.5-14.5); RDW Standard Deviation 67.8 fL (36.4-46.3); White Blood Count 4.18 K/ul (4.8-10.8)
--- NOTE | 2023-09-04 07:33 | Hospitalist Progress Note ---
"Date of Service September 04, 2023 Assessment & Plan (1) Thrombocytopenia: (2) Hypothyroidism: (3) Failure to thrive in adult: (4) Acute alteration in mental status: (5) Pleural effusion: (6) Urinary tract infection: (7) Acute dehydration: (8) Generalized weakness: (9) Anemia: (10) Cirrhosis: (11) Acute UTI (urinary tract infection): (12) CHF (congestive heart failure): (13) VINICIUS (acute kidney injury): Plan Failure to thrive in adult -Progressive clinical decline since his discharge from [facility] on 08/12/23 -His decline is likely multifactorial including his known cirrhosis, anemia, poor oral intake, and recurrent UTI's -PT/OT consults -PT also notes some left sided weakness on exam, minimal left facial droop in prior days. Majority of weakness likely secondary to failure to thrive, although discussed that if stroke is etiology, would not change current plan for management (i.e. thrombolytic) as patient has been supratherapeutic with INR -Will obtain Brain MRI to rule out stroke/assist with prognosis -Discussed with family at bedside -NG tube placed this afternoon, will start tube feeds and titrate up to goal rate. -Senior Web Developer consulted for management of tube feeds. Will start daily thiamine -Patient can be offered meal trays in addition -AM CBC, CMP, mag, PT/INR Acute Hypoxia | New Oxygen Requirement -2L NC required due to hypoxia on 09/03, now returned to room air -CXR without acute changes Urinary tract infection -Unsure if he truly had a UTI last admission as his urine cultures was negative. Culture during this admission showing multiple organisms present -UTI is likely due to recurrent bladder outlet obstructions as his marvin cath placed last admission was removed in the outpatient setting on 08/15/23 -Continue Ceftriaxone daily, anticipate treatment for 7 days. -Prn straight cath's ordered for PVR equal to or greater than 300 cc -Many need recurrent marvin cath placement -Continue flomax Delirium -Patient has had significant delirium during prior admissions -Has had delirium/agitation overnight, waxes and wanes Supratherapeutic INR -INR at 2.4 today -Has been checking his INR once weekly with results sent to his PCP for dosing adjustments -Likely a combination of his poor nutritional status and known cirrhosis -Did have some minor acute bleeding on 09/01 with rectal bleeding and nose bleed -Received 2.5mg Vitamin K on 09/01 -Hemodynamically stable -Will increase to 3mg Warfarin -Monitor daily INR, goal is 2.5-3.5 with his prosthetic aortic valve VINICIUS (acute kidney injury) -Cr of 2.26, baseline is near 1.7 -Likely a combination of hypotension from dehydration, cirrhosis, and continued metoprolol use and his chronic bladder outlet obstruction -Presented with a similar Cr last admission which improved with better control of his BP -He is high risk for 3rd spacing with his Cirrhosis and appears to be 3rd spacing on exam today but intravascularly depleted -Albumin is 3.6 on admission -Hold metoprolol -Avoid nephrotoxic agents -Monitor daily renal function and electrolytes Nausea & vomiting -Patient has been experiencing post-prandial nausea and vomiting over the past 2 weeks -He states that he gets full easily and denies pain prior to or after vomiting -He has multiple possible etiologies including nausea/vomiting with UTI's, gastroparesis, and his known cirrhosis -Protonix, Pepcid, Carafate and monitor for improvement in symptoms -PRN Zofran -Monitor for improvement with treatment of his UTI -Follow Senior Web Developer consult as above -Aspiration precautions Pleural effusion -Patient's BL pleural effusions appear slightly more progressed than last admission -Likely due to his known cirrhosis and CHF -Currently stable on RA and not in respiratory distress -Pulmonology consulted Thrombocytopenia -Noted to be 117 on admission, improved to 122 today -Likely due to his cirrhosis -Monitor daily CBC Cirrhosis -Does not appear to be encephalopathic on exam, LFT's are stable -Has appointment with [facility] next month -Avoid nephrotoxic agents, monitor volume status closely -Monitor daily CMP and INR S/P AVR -Goal INR is 2.5-3.5, monitor daily Diabetes -Monitor BSG q6h, goal is 110-160 -Nutrition consult placed Hypothyroidism -Continue levothyroxine Admission and Anticipated Discharge Date Admission Date: August 31, 2023 Supervising Physician Co-Signing Physician Notes I personally examined the patient and verified all saenz points of history and exam, discussed case, and agree with decision making with Dr Lim no meaningful HPI and ROS from pt although for what it's worth he offers no ac apache complaints. on initial exam faint rales later off O2. no new focal neuro deficits to my, or to dr lim's exam. dtr present later in the day notes that faint R facial droop is chronic. labs and diagnostics noted. later in the day nursing is successful in placing tube - on review of Xray appears appropriately placed. A/P failure to thriveseems to be multifactorial declinesuspect that his undefined, acutely seems to be severe, protein calorie malnutrition is a main player in his decline. At last admission we discussed nutrition in depth, had dietitian consult, but unfortunately since he has been home he has had postprandial nausea and early satiety making it impossible to reach nutrition goals. Postprandial nausea/early satietyMain differentials would be stress gastritis (was septic at last admission), versus an unfortunate overall decline from malnutrition/third spacing/gut edema versus other. not doing better yet despite aggressive acid suppression - after d/w family - NGT to follow for ?can he tolerate adequate nutrition//bridge to get through delirium - tube placed today, start tube feedings, follow closely. acute on chronic diastolic CHF Versus third spaced fluid from malnutrition, versus a combination of CHF and cirrhosis mediated ascites- not having large O2 requirement but still needs supplemental O2; discussed with family the concern would be whether or not he is truly just a CHF exacerbation versus if he is third spacing fluids from severe malnutritionright now not showing clear signs of not being able to tolerate more diuresis, and therefore we will continue to give diuretic and follow closely, but discussed with family in detail that if he starts to show lower blood pressures and an VINIICUS (i.e. suggestion that we have diuresed him as far as he can) and he still looks clinically wetthis would be very concerning. Coumadin coagulopathy Gentle titration of Coumadin, continue to follow otherwise as above Subjective Several attempts made to place NG tube yesterday. Nursing reports that patient has been somnolent overnight and this morning, subsequently has been unable to take oral medications. Coresafe NG tube able to be placed this afternoon. Review of Systems Review of Systems: As per above Physical Exam Constitutional: + frail appearing and cooperative; no ac apache distress Eyes: + anicteric sclerae; no conjunctival abn ormality ENMT: Ears: no external ear abnormality Nose: no external nose abnormality Respiratory: normal respiratory effort Cardiovascular: Rate/Rhythm: regular rate and regular rhythm Extremities: no edema Gastrointestinal (Abdomen): Inspection/Auscultation: + abdomen distended Percussion/Palpation: abdomen soft; abdomen nontender Skin: no rashes, warm and dry Neurologic: CN's II-XI intact bilaterally (very minimal left sided facial droop, isolated abnormality) Motor/Sensory: no sensory deficit Psychiatric: Delirious, somnolent at times Results & Data Results & Data Vital Signs (Past 12 Hours) Vital Signs Temp Pulse Pulse Resp BP Pulse Ox Pulse Ox 09/04/23 05:18 36.8 C 76 20 109/64 95 09/03/23 23:48 37.3 C 77 18 137/76 98 09/03/23 22:30 09/03/23 22:22 74 09/03/23 21:00 92 09/03/23 20:49 36.9 C 67 20 115/71 92 O2 Del Method O2 Del Method O2 Flow Rate 09/04/23 05:18 Nasal Cannula 2 09/03/23 23:48 Nasal Cannula 2 09/03/23 22:30 Nasal Cannula 2 09/03/23 22:22 09/03/23 21:00 Room Air 09/03/23 20:49 Room Air 2 Resident Activity Tracking Resident Involvement: Resident Care Provided Care Provided: Adult Hospital Medicine (6) Urinary tract infection Hematuria presence: with hematuria Urinary tract infection type: site unspecified Qualified Code(s): N39.0 - Urinary tract infection, site not specified; R31.9 - Hematuria, unspecified (9) Anemia Anemia type: unspecified type Qualified Code(s): D64.9 - Anemia, unspecified"
[2023-09-04] MEDS: THIAMINE HCL 100 MG TAB PO SCH (11:01)
[2023-09-04] MEDS: FUROSEMIDE 40 MG/4 ML VIAL IV ONE (12:06)
--- NOTE | 2023-09-04 19:16 | XRay Report ---
KUB CLINICAL HISTORY: Enteric tube placement. FINDINGS: An AP, portable, upright radiograph of the lower chest and upper abdomen is compared to kris dy dated 07/26/2023 and correlated with abdominal CT dated 08/31/2023. An enteric tube has been placed. The tip projects below the diaphragm over the the distal stomach or proximal duodenum. There is no r adiographic evidence of high-grade bowel obstruction. No intraperitoneal free air is seen below the d iaphragm. Surgical clips project over the right abdomen. The patient is status post midline sternotom y. The heart is enlarged with evidence of congestive failure. There are layering pleural effusions wi th dependent consolidation. IMPRESSION: 1. An enteric tube has been placed as above. 2. There is no radiographic evidence of high-grade bowel obstruction. 3. Cardiomegaly with evidence of congestive failure and layering pleural effusions Electronically signed by: Fuad Almaraz M.D. 09/04/2023 7:15 PM
--- NOTE | 2023-09-04 19:19 | Billing Data ---
Date of Service September 04, 2023 Coding Level of Care Code 37661 SUB INP/OBS CARE MIN
--- NOTE | 2023-09-04 21:03 | Magnetic Resonance Report ---
Exam(s): MRI HEAD Without Contrast EXAM: MR Head Without Intravenous Contrast CLINICAL HISTORY: Reason for exam: altered mental status. TECHNIQUE: Magnetic resonance images of the head/brain without intravenous contrast in multiple planes. COMPARISON: No relevant prior studies available. FINDINGS: No acute territorial infarct. No acute intracranial hemorrhage. No midline shift or mass effect. The territorial whipple-white matter differentiation is maintained throughout. Age-related cerebral volume loss. Periventricular and subcortical white matter T2 signal intensity, consistent with chronic microangiopathy. The visualized orbits appear grossly unremarkable. The calvarium is intact. The visualized paranasal sinuses and mastoid air cells are grossly clear. IMPRESSION: No acute territorial infarct. No acute intracranial hemorrhage. No midline shift or mass effect. Electronically signed by: Joel Pastrana MD 09/04/23 21:03 PM
[2023-09-04] MEDS: WARFARIN SOD 3 MG TAB PO SCH (21:19)
[2023-09-05 05:37] LABS: Albumin Globulin Ratio 0.8 (0.9-2); Albumin Level 3.2 gm/dl (3.4-5.0); Bilirubin,Total 0.5 mg/dl (0.2-1.0); Calcium 8.5 mg/dl (8.6-10.3); Creatinine Clr Calc Pharmacy 28.8 ml/min; Est GFR (African American) 34.6 ml/min; Est GFR (Non-African American) 29.8 ml/min; Globulin 3.8 gm/dl (2.5-4.0); Potassium 4.6 mmol/L (3.5-5.1)
[2023-09-05 05:39] LABS: INR 4.5 (0.9-1.1); Prothrombin Time 44.4 Seconds (9.0-12.0)
[2023-09-05 05:57] LABS: Basophils # (auto) 0.02 K/uL (0.00-0.20); Basophils % (auto) 0.6 %; Eosinophils # (auto) 0.28 K/uL (0.00-0.50); Eosinophils % (auto) 8.2 %; Hemoglobin 8.1 g/dl (14.0-18.0); Immature Granulocytes # (auto) 0.01 K/uL (0.01-0.20); Immature Granulocytes % (auto) 0.3 %; Lymphocytes % (auto) 11.7 %; Mean Corpuscular Hemoglobin 27.6 pg (25.0-34.0); Mean Corpuscular Hgb Conc 28.9 g/dL (32.0-36.0); Mean Corpuscular Volume 95.6 fL (80.0-100.0); Mean Platelet Volume 11.2 fL (9.4-12.4); Monocytes # (auto) 0.39 K/uL (0.11-0.59); Monocytes % (auto) 11.4 %; Neutrophils # (auto) 2.32 K/uL (1.40-6.50); Neutrophils % (auto) 67.8 %; Platelet Count 115 K/uL (130-400); Platelet Estimate Decreased (Normal); RBC Morphology Unremarkable; RDW Coefficient of Variation 19.6 % (11.5-14.5); RDW Standard Deviation 68.2 fL (36.4-46.3); Red Blood Count 2.93 M/uL (4.70-6.10); White Blood Count 3.42 K/ul (4.8-10.8)
--- NOTE | 2023-09-05 07:59 | Hospitalist Progress Note ---
Date of Service September 05, 2023 Assessment & Plan (1) Thrombocytopenia: Plan: 78-year-old male with a past medical history of HFpEF, Cirrhosis (diagnosed last admission), anxiety, DM 2, prostate cancer s/p Rezum 12/05/2022 and radiation with recurrent hematuria, failure to thrive who presented to the [facility] ED on 08/31/23 with complaints of poor oral intake over the past 5 days with associated post- prandial nausea and vomiting. Failure to thrive in adult -Progressive clinical decline since his discharge from [facility] on 08/12/23 - likely multifactorial including his known cirrhosis, anemia, poor oral intake, and recurrent UTI's -Head CT and Brain MRI unremarkable -NG tube in place -Design And Sales Consultant consulted for management of tube feeds. -Tolerating 40ml/hr Nutramen thus far, cont. to monitor -Cont. daily thiamine. -Patient can be offered meal trays in addition -Ultimately will want to see increased oral intake as nutrition status improves - if this does not improve or he does not tolerate the tube feeds, we may need to discuss hospice - in previous discussions family would not want PEG tube -PT/OT Urinary tract infection -initial UA appeared infectious. Culture unclear. Will complete 7 day course of abx for possible complicated UTI. Cont. rocephin. Delirium -waxing and waning, stable S/P AVR Supratherapeutic INR -Elevated on admission. s/p vit K. Monitoring INR titrate warfain as needed. -Likely a combination of his poor nutritional status and known cirrhosis -goal is 2.5-3.5 with his prosthetic aortic valve -INR 4.5 - warfarin held VINICIUS (acute kidney injury) -Baseline ~1.7, Cr elevated - initial thought 2/2 pre renal however now appearing fluid overloaded - cont. lasix -Avoid nephrotoxic agents Nausea & vomiting -Patient has been experiencing post-prandial nausea and vomiting over the past 2 weeks -He states that he gets full easily and denies pain prior to or after vomiting -considerations include nausea/vomiting with UTI's, gastroparesis, and cirrhosis -cont. Protonix, Pepcid, Carafate, zofran -Design And Sales Consultant following Pleural effusion -Patient's BL pleural effusions appear slightly more progressed than last admission - likely 2/2 cirrhosis and CHF - diuresing -Pulmonology following Thrombocytopenia -Noted to be 117 on admission, stable -Likely 2/2 cirrhosis Cirrhosis -Does not appear to be encephalopathic on exam, LFT's are stable -Has appointment with [facility] next month -Avoid nephrotoxic agents, monitor volume status closely Diabetes -Monitor BSG q6h -hypoglycemic protocol in place - has had low BSG 2/2 poor oral intake -Nutrition consulted Hypothyroidism -Continue levothyroxine DVT ppx: Warfarin FEN/GI: DM2 Code Status: Full Dispo: med tele (2) Hypothyroidism: (3) Failure to thrive in adult: (4) Acute alteration in mental status: (5) Pleural effusion: (6) Urinary tract infection: (7) Acute dehydration: (8) Generalized weakness: (9) Anemia: (10) Cirrhosis: (11) Acute UTI (urinary tract infection): (12) CHF (congestive heart failure): (13) VINICIUS (acute kidney injury): Admission and Anticipated Discharge Date Admission Date: August 31, 2023 Supervising Physician Co-Signing Physician Notes I personally examined the patient and verified all saenz points of history and exam, discussed case, and agree with decision making with Dr Jacob no meaningful HPI and ROS from pt although for what it's worth he offers no acute complaints. Tube feeds up to 40 an hour. Seems to be tolerating fairly well. Updated family to the best my ability and answered other questions. Vitals noted, in general he is awake and alert pleasant no distress. He is on room air. Breathing unlabored no accessory muscle use good effort. Skin shows no rashes no pallor or icterus. A/P failure to thriveseems to be multifactorial declinesuspect that his undefined, acutely seems to be severe, protein calorie malnutrition is a main player in his decline. At last admission we discussed nutrition in depth, had dietitian consult, but unfortunately since he has been home he has had postprandial nausea and early satiety making it impossible to reach nutrition goals. Postprandial nausea/early satietyMain differentials would be stress gastritis (was septic at last admission), versus an unfortunate overall decline from malnutrition/third spacing/gut edema versus other. not doing better yet despite aggressive acid suppression - after d/w family - NGT to follow for ?can he tolerate adequate nutrition//bridge to get through delirium -has a pleasant surprise, at least for now he is tolerating tube feeds at goaldiscussed with family this is optimistic, but far too soon to see if he can truly tolerate nutritionwould want to see decent nutrition for several days before trying to transition back to p.o. intake. They are still aware that he may "hit a wall" and we may run into ear reparable problems, but at least so far he is tolerating at goal well. acute on chronic diastolic CHF Versus third spaced fluid from malnutrition, versus a combination of CHF and cirrhosis mediated ascites- was requiring O2 but not now; discussed with family the concern would be whether or not he is truly just a CHF exacerbation versus if he is third spacing fluids from severe malnutritionright now not showing clear signs of not being able to tolerate more diuresis, and therefore we will continue to give diuretic and follow closely, but discussed with family in detail that if he starts to show lower blood pressures and an VINICIUS (i.e. suggestion that we have diuresed him as far as he can) and he still looks clinically wetthis would be very concerning. Today, he did show some improvement given that he no longer requires O2. Continue to follow this closely, continue Lasix and daily labs for now. Coumadin coagulopathy Gentle titration of Coumadin, continue to follow otherwise as above Subjective Patient seen at bedside. NG tube in place. Difficult to understand at baseline, ROS unobtainable. Review of Systems Review of Systems: All systems reviewed & are unremarkable except as noted in HPI & below Physical Exam Physical Exam: Constitutional: in no acute distress, pleasant. Alert. Vitals as above. HEENT: No scleral injection or discharge.Moist mucous membranes. Neck: Supple without lymphadenopathy. Trachea midline. Lungs: Clear to auscultation bilaterally with good effort. No wheezes/rales/rhonchi. Cardiac: Regular rate and rhythm. No murmurs. No lower extremity edema. 2+ distal peripheral pulses. Abdomen: Bowel sounds present. Soft, nontender, and nondistended.No guarding. +NG tube. MSK: No cyanosis or clubbing. Skin: No abnormal rashes, warm, dry. Neurologic: no focal deficits Results & Data Results & Data Vital Signs (Past 12 Hours) Vital Signs Temp Pulse Pulse Resp BP BP Pulse Ox 09/05/23 07:58 36.4 C L 77 19 150/75 H 96 09/05/23 03:28 36.3 C L 74 20 126/68 92 09/05/23 00:17 09/04/23 22:47 36.3 C L 79 16 103/59 L 98 09/04/23 22:07 80 09/04/23 21:00 Pulse Ox O2 Del Method O2 Del Method O2 Flow Rate O2 Flow Rate 09/05/23 07:58 Room Air 09/05/23 03:28 Nasal Cannula 2 09/05/23 00:17 Nasal Cannula 2 09/04/23 22:47 Nasal Cannula 2 09/04/23 22:07 09/04/23 21:00 98 Nasal Cannula 2 Laboratory Results 09/05/23 09/04/23 09/04/23 Range/Units 04:58 21:15 17:26 WBC 3.42 L (4.8-10.8) K/ul RBC 2.93 L (4.70-6.10) M/uL Hgb 8.1 L (14.0-18.0) g/dl Hct 28.0 L (42.0-52.0) % MCV 95.6 (80.0-100.0) fL MCH 27.6 (25.0-34.0) pg MCHC 28.9 L (32.0-36.0) g/dL RDW Std Deviation 68.2 H (36.4-46.3) fL RDW Coeff of Nick 19.6 H (11.5-14.5) % Plt Count 115 L (130-400) K/uL MPV 11.2 (9.4-12.4) fL Immature Gran % (Auto) 0.3 % Neut % (Auto) 67.8 % Lymph % (Auto) 11.7 % Deuel % (Auto) 11.4 % Eos % (Auto) 8.2 % Baso % (Auto) 0.6 % Neut # (Auto) 2.32 (1.40-6.50) K/uL Lymph # (Auto) 0.40 L (1.20-3.40) K/uL Deuel # (Auto) 0.39 (0.11-0.59) K/uL Eos # (Auto) 0.28 (0.00-0.50) K/uL Baso # (Auto) 0.02 (0.00-0.20) K/uL Immature Gran # (Auto) 0.01 (0.01-0.20) K/uL Platelet Estimate Decreased L (Normal) RBC Morphology Unremarkable PT 44.4 H (9.0-12.0) Seconds INR 4.5 H (0.9-1.1) Sodium 144 (136-145) mmol/L Potassium 4.6 (3.5-5.1) mmol/L Chloride 110 H (98-107) mmol/L Carbon Dioxide 30 (21-32) mmol/L Anion Gap 4 (3-11) BUN 50 H (6-23) mg/dl Creatinine 2.08 H (0.6-1.4) mg/dl Est Cr Clr Drug Dosing 28.8 ml/min Est GFR ( Amer) 34.6 ml/min Est GFR (Non-Af Amer) 29.8 ml/min BUN/Creatinine Ratio 24.0 H (10-20) Glucose 75 (70-99(Fasting)) mg/dl POC Glucose 95 82 (70-99) mg/dl Calcium 8.5 L (8.6-10.3) mg/dl Total Bilirubin 0.5 (0.2-1.0) mg/dl AST 95 H (13-39) U/L ALT 24 (7-52) U/L Alkaline Phosphatase 39 (34-104) U/L Total Protein 7.0 (6.0-8.3) gm/dl Albumin 3.2 L (3.4-5.0) gm/dl Globulin 3.8 (2.5-4.0) gm/dl Albumin/Globulin Ratio 0.8 L (0.9-2) 09/04/23 09/04/23 09/04/23 Range/Units 12:42 12:41 08:19 WBC (4.8-10.8) K/ul RBC (4.70-6.10) M/uL Hgb (14.0-18.0) g/dl Hct (42.0-52.0) % MCV (80.0-100.0) fL MCH (25.0-34.0) pg MCHC (32.0-36.0) g/dL RDW Std Deviation (36.4-46.3) fL RDW Coeff of Nick (11.5-14.5) % Plt Count (130-400) K/uL MPV (9.4-12.4) fL Immature Gran % (Auto) % Neut % (Auto) % Lymph % (Auto) % Deuel % (Auto) % Eos % (Auto) % Baso % (Auto) % Neut # (Auto) (1.40-6.50) K/uL Lymph # (Auto) (1.20-3.40) K/uL Deuel # (Auto) (0.11-0.59) K/uL Eos # (Auto) (0.00-0.50) K/uL Baso # (Auto) (0.00-0.20) K/uL Immature Gran # (Auto) (0.01-0.20) K/uL Platelet Estimate (Normal) RBC Morphology PT (9.0-12.0) Seconds INR (0.9-1.1) Sodium (136-145) mmol/L Potassium (3.5-5.1) mmol/L Chloride (98-107) mmol/L Carbon Dioxide (21-32) mmol/L Anion Gap (3-11) BUN (6-23) mg/dl Creatinine (0.6-1.4) mg/dl Est Cr Clr Drug Dosing ml/min Est GFR ( Amer) ml/min Est GFR (Non-Af Amer) ml/min BUN/Creatinine Ratio (10-20) Glucose (70-99(Fasting)) mg/dl POC Glucose 71 67 L* 80 (70-99) mg/dl Calcium (8.6-10.3) mg/dl Total Bilirubin (0.2-1.0) mg/dl AST (13-39) U/L ALT (7-52) U/L Alkaline Phosphatase (34-104) U/L Total Protein (6.0-8.3) gm/dl Albumin (3.4-5.0) gm/dl Globulin (2.5-4.0) gm/dl Albumin/Globulin Ratio (0.9-2) Resident Activity Tracking Resident Involvement: Resident Care Provided Care Provided: Adult Hospital Medicine (6) Urinary tract infection Hematuria presence: with hematuria Urinary tract infection type: site unspecified Qualified Code(s): N39.0 - Urinary tract infection, site not specified; R31.9 - Hematuria, unspecified (9) Anemia Anemia type: unspecified type Qualified Code(s): D64.9 - Anemia, unspecified
[2023-09-05] MEDS: FUROSEMIDE 40 MG/4 ML VIAL IV SCH (08:01)
[2023-09-05 08:39] LABS: Magnesium 2.2 mg/dl (1.7-2.4); Phosphorus 2.6 mg/dl (2.5-4.9)
--- NOTE | 2023-09-05 14:48 | XRay Report ---
SINGLE VIEW CHEST CLINICAL HISTORY: Enteric tube placement. FINDINGS: 2 AP, portable, upright chest radiographs are compared to study dated 09/02/2023. Surgical c lips project over the right apex. An enteric tube has been placed. The tip projects below the diaphra gm over the distal stomach or duodenum. The patient is status post midline sternotomy. The heart is e nlarged noting atherosclerotic calcification of the thoracic. There is pulmonary vascular congestion with evidence of interstitial edema. There are layering pleural effusions with dependent consolidatio n. No pneumothorax is seen. The skeletal structures are osteopenic. The bony thorax is grossly intact . Degenerative change is noted in the shoulders. Cholecystectomy clips are noted. IMPRESSION: 1. An enteric tube has been placed as above. 2. Cardiomegaly with evidence of congestive failure and pulmonary edema. 3. Layering pleural effusions with dependent consolidation ACT 112: Negative or not required by law. Electronically signed by: Fuad Almaraz M.D. 09/05/2023 2:46 PM
[2023-09-05] MEDS ORDERED: WARFARIN SOD 2 MG TAB PO SCH (16:00)
--- NOTE | 2023-09-05 17:56 | Billing Data ---
Date of Service September 05, 2023 Coding Level of Care Code 05167 SUB INP/OBS CARE MIN
--- NOTE | 2023-09-05 21:39 | Communication Note ---
Date of Service: September 05, 2023 Notified by nursing that patient had several bouts of emesis this evening, also had a small amount of blood at the end of the emesis as well as some BRBPR. His INR was 4.5 today and his evening dose of Warfarin was held. Went to bedside, patient had coresafe NG in place and states he "felt better" after vomiting. Abdomen was soft, mild distention as per his baseline. Denied any pain or current nausea. Later was contacted by nursing and notified that Mr. Jarquin had pulled out his coresafe. Patient was also noted to have waxing and waning periods of delirium. Due to patient's supratherapeutic INR and mild bleeding earlier this evening as well as his ongoing delirium, will defer replacing his coresafe overnight as he would also require mitts to ensure he did not remove the NG again. Patient was also given a duoneb treatment due to wheezing. Could consider replacing Coresafe during daytime if appropriate.
--- NOTE | 2023-09-06 07:16 | Hospitalist Progress Note ---
Date of Service September 06, 2023 Assessment & Plan (1) Thrombocytopenia: Plan: 78 yo male with PMHx of HFpEF, Cirrhosis, anxiety, DM2, prostate cancer s/p Rezum 12/05/2022 and radiation with recurrent hematuria, failure to thrive who presented with complaints of poor oral intake and associated post-prandial nausea and vomiting. Failure to thrive in adult -Progressive clinical decline since his discharge from [facility] on 08/12/23 - likely multifactorial including his known cirrhosis, anemia, poor oral intake, post prandial N/V, and recurrent UTI's -Head CT and Brain MRI unremarkable -NG tube placed -[place] Operator consulted for management of tube feeds. 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 He pulled out his NG tube overnight 3/ delirium. Will hold on replacing tube for today and allow him to eat on his own. Did discuss with family possibility of NG tube trial again tomorrow and will discuss further at that time. However, it does not appear family will want to go this route. -Cont. daily thiamine. -PT/OT Urinary tract infection -initial UA appeared infectious. Culture unclear. Will complete 7 day course of abx for possible complicated UTI. Cont. rocephin. S/P AVR Supratherapeutic INR -Elevated on admission. s/p vit K. Monitoring INR titrate warfain as needed. -Likely a combination of his poor nutritional status and known cirrhosis -goal is 2.5-3.5 with his prosthetic aortic valve -INR 4.2 - warfarin held VINICIUS (acute kidney injury) -Baseline ~1.7, Cr elevated - initial thought 2/2 pre renal however now appearing fluid overloaded - cont. lasix -Avoid nephrotoxic agents Nausea & vomiting -Patient has been experiencing post-prandial nausea and vomiting over the past month. He states that he gets full easily and denies pain prior to or after vomiting. -considerations include nausea/vomiting with UTI's, gastroparesis, and cirrhosis -cont. Protonix, Pepcid, Carafate, zofran -[place] Operator following Pleural effusion -Patient's BL pleural effusions appear slightly more progressed than last admission - likely 2/2 cirrhosis and CHF - diuresing -Pulmonology following Thrombocytopenia -Noted to be 117 on admission, stable -Likely 2/2 cirrhosis Cirrhosis -Does not appear to be encephalopathic on exam, LFT's are stable -Has appointment with [facility] Hepatology next month -Avoid nephrotoxic agents, monitor volume status closely Diabetes -Monitor BSG q6h -hypoglycemic protocol in place - has had low BSG 2/2 poor oral intake -Nutrition consulted Hypothyroidism -Continue levothyroxine DVT ppx: Warfarin FEN/GI: DM2 Code Status: Full Dispo: med tele (2) Hypothyroidism: (3) Failure to thrive in adult: (4) Acute alteration in mental status: (5) Pleural effusion: (6) Urinary tract infection: (7) Acute dehydration: (8) Generalized weakness: (9) Anemia: (10) Cirrhosis: (11) Acute UTI (urinary tract infection): (12) CHF (congestive heart failure): (13) VINICIUS (acute kidney injury): Admission and Anticipated Discharge Date Admission Date: August 31, 2023 Supervising Physician Co-Signing Physician Notes I personally examined the patient and verified all saenz points of history and exam, discussed case, and agree with decision making with Dr. Jacob. Patient resting at time of evaluation, ROS unable to be obtained. Yesterday and overnight patient had several bouts of emesis and some small bleeding at the end of emesis with some BRBPR. Patient removed his NG and had increase in delirium Vital stable. Appears in no acute distress, resting in bed. Heart regular rate. No respiratory distress. Reviewed labspersistent leukopenia, hemoglobin slight improvement to 8.7, creatinine slight improvement to 1.8, low phosphorus at 1 point, AST remains elevated Failure to thriveseems to be multifactorial declinesuspect that his undefined, acutely seems to be severe, protein calorie malnutrition is a main player in his decline. At last admission his nutrition was discussed in depth, had dietitian consult, but unfortunately since he has been home he has had postprandial nausea and early satiety making it impossible to reach nutrition goals. Postprandial nausea/early satietyMain differentials would be stress gastritis (was septic at last admission), versus an unfortunate overall decline from malnutrition/third spacing/gut edema versus other. not doing better yet despite aggressive acid suppression - after d/w family - NGT was placed to assess if he can tolerate adequate nutrition/bridge to get through delirium. Unfortunately, patient had several bouts of emesis and removed his NGT overnight. Discussion with family about whether or not to give a second trial with NGT in light of overnight events - will hold replacement today given ongoing supratherapeutic INR and patient's delirium. Will discuss again tomorrow 09/06 Acute on chronic diastolic CHF versus third spaced fluid from malnutrition, versus a combination of CHF and cirrhosis mediated ascites- was requiring O2 but not now; discussed with family the concern would be whether or not he is truly just a CHF exacerbation versus if he is third spacing fluids from severe malnutritionright now not showing clear signs of not being able to tolerate more diuresis, and therefore we will continue to give diuretic and follow closely, but discussion previously with family in detail that if he starts to show lower blood pressures and an VINICIUS (i.e. suggestion that we have diuresed him as far as he can) and he still looks clinically wetthis would be very concerning. Continue to follow this closely, continue Lasix and daily labs for now. Coumadin coagulopathy Gentle titration of Coumadin, continue to follow Otherwise as above Subjective Patient seen at bedside. Had continual N/V overnight and with delirium took out his own NG tube which was not replaced. Difficult to understand at baseline, ROS unobtainable. Review of Systems Review of Systems: All systems reviewed & are unremarkable except as noted in HPI & below Physical Exam Physical Exam: Constitutional: in no acute distress, pleasant. Alert. Vitals as above. HEENT: No scleral injection or discharge.Moist mucous membranes. Neck: Supple without lymphadenopathy. Trachea midline. Lungs: Clear to auscultation bilaterally with good effort. No wheezes/rales/rhonchi. Cardiac: RRR. No murmurs. No lower extremity edema. 2+ distal peripheral pulses. Abdomen: Bowel sounds present. Soft, nontender, and nondistended.No guarding. MSK: No cyanosis or clubbing. Skin: No abnormal rashes, warm, dry. Neurologic: no focal deficits Results & Data Results & Data Vital Signs (Past 12 Hours) Vital Signs Temp Pulse Pulse Resp BP Pulse Ox O2 Del Method 09/06/23 07:13 36.7 C 72 16 126/63 94 Room Air 09/06/23 04:00 37.1 C 90 20 103/58 L 94 Room Air 09/06/23 02:00 95 H 09/05/23 23:19 37.4 C 93 H 24 106/53 L 94 Room Air 09/05/23 22:32 92 H 17 93 Room Air 09/05/23 21:30 Room Air 09/05/23 21:00 09/05/23 20:09 37.4 C 87 18 135/69 93 Room Air O2 Del Method 09/06/23 07:13 09/06/23 04:00 09/06/23 02:00 09/05/23 23:19 09/05/23 22:32 09/05/23 21:30 09/05/23 21:00 Room Air 09/05/23 20:09 Laboratory Results 09/06/23 09/06/23 09/06/23 Range/Units 12:08 12:06 08:24 WBC (4.8-10.8) K/ul RBC (4.70-6.10) M/uL Hgb (14.0-18.0) g/dl Hct (42.0-52.0) % MCV (80.0-100.0) fL MCH (25.0-34.0) pg MCHC (32.0-36.0) g/dL RDW Std Deviation (36.4-46.3) fL RDW Coeff of Nick (11.5-14.5) % Plt Count (130-400) K/uL MPV (9.4-12.4) fL Immature Gran % (Auto) % Neut % (Auto) % Lymph % (Auto) % [place] % (Auto) % Eos % (Auto) % Baso % (Auto) % Neut # (Auto) (1.40-6.50) K/uL Lymph # (Auto) (1.20-3.40) K/uL [place] # (Auto) (0.11-0.59) K/uL Eos # (Auto) (0.00-0.50) K/uL Baso # (Auto) (0.00-0.20) K/uL Immature Gran # (Auto) (0.01-0.20) K/uL PT (9.0-12.0) Seconds INR (0.9-1.1) Sodium (136-145) mmol/L Potassium (3.5-5.1) mmol/L Chloride (98-107) mmol/L Carbon Dioxide (21-32) mmol/L Anion Gap (3-11) BUN (6-23) mg/dl Creatinine (0.6-1.4) mg/dl Est Cr Clr Drug Dosing ml/min Est GFR ( Amer) ml/min Est GFR (Non-Af Amer) ml/min BUN/Creatinine Ratio (10-20) Glucose (70-99(Fasting)) mg/dl POC Glucose 74 69 L* 84 (70-99) mg/dl Calcium (8.6-10.3) mg/dl Phosphorus (2.5-4.9) mg/dl Magnesium (1.7-2.4) mg/dl Total Bilirubin (0.2-1.0) mg/dl AST (13-39) U/L ALT (7-52) U/L Alkaline Phosphatase (34-104) U/L Total Protein (6.0-8.3) gm/dl Albumin (3.4-5.0) gm/dl Globulin (2.5-4.0) gm/dl Albumin/Globulin Ratio (0.9-2) 09/06/23 09/05/23 09/05/23 Range/Units 07:01 21:15 17:32 WBC 3.48 L (4.8-10.8) K/ul RBC 3.09 L (4.70-6.10) M/uL Hgb 8.7 L (14.0-18.0) g/dl Hct 28.3 L (42.0-52.0) % MCV 91.6 (80.0-100.0) fL MCH 28.2 (25.0-34.0) pg MCHC 30.7 L (32.0-36.0) g/dL RDW Std Deviation 66.3 H (36.4-46.3) fL RDW Coeff of Nick 19.8 H (11.5-14.5) % Plt Count 120 L (130-400) K/uL MPV 10.8 (9.4-12.4) fL Immature Gran % (Auto) 0.3 % Neut % (Auto) 66.6 % Lymph % (Auto) 13.8 % [place] % (Auto) 13.2 % Eos % (Auto) 5.5 % Baso % (Auto) 0.6 % Neut # (Auto) 2.32 (1.40-6.50) K/uL Lymph # (Auto) 0.48 L (1.20-3.40) K/uL [place] # (Auto) 0.46 (0.11-0.59) K/uL Eos # (Auto) 0.19 (0.00-0.50) K/uL Baso # (Auto) 0.02 (0.00-0.20) K/uL Immature Gran # (Auto) 0.01 (0.01-0.20) K/uL PT 43.2 H (9.0-12.0) Seconds INR 4.3 H (0.9-1.1) Sodium 145 (136-145) mmol/L Potassium 4.3 (3.5-5.1) mmol/L Chloride 110 H (98-107) mmol/L Carbon Dioxide 30 (21-32) mmol/L Anion Gap 5 (3-11) BUN 44 H (6-23) mg/dl Creatinine 1.80 H (0.6-1.4) mg/dl Est Cr Clr Drug Dosing 33.3 ml/min Est GFR ( Amer) 41.2 ml/min Est GFR (Non-Af Amer) 35.5 ml/min BUN/Creatinine Ratio 24.4 H (10-20) Glucose 77 (70-99(Fasting)) mg/dl POC Glucose 90 102 H (70-99) mg/dl Calcium 8.7 (8.6-10.3) mg/dl Phosphorus 1.9 L (2.5-4.9) mg/dl Magnesium 2.1 (1.7-2.4) mg/dl Total Bilirubin 0.6 (0.2-1.0) mg/dl AST 99 H (13-39) U/L ALT 23 (7-52) U/L Alkaline Phosphatase 44 (34-104) U/L Total Protein 7.0 (6.0-8.3) gm/dl Albumin 3.3 L (3.4-5.0) gm/dl Globulin 3.7 (2.5-4.0) gm/dl Albumin/Globulin Ratio 0.9 (0.9-2) 09/05/23 Range/Units 12:18 WBC (4.8-10.8) K/ul RBC (4.70-6.10) M/uL Hgb (14.0-18.0) g/dl Hct (42.0-52.0) % MCV (80.0-100.0) fL MCH (25.0-34.0) pg MCHC (32.0-36.0) g/dL RDW Std Deviation (36.4-46.3) fL RDW Coeff of Nick (11.5-14.5) % Plt Count (130-400) K/uL MPV (9.4-12.4) fL Immature Gran % (Auto) % Neut % (Auto) % Lymph % (Auto) % [place] % (Auto) % Eos % (Auto) % Baso % (Auto) % Neut # (Auto) (1.40-6.50) K/uL Lymph # (Auto) (1.20-3.40) K/uL [place] # (Auto) (0.11-0.59) K/uL Eos # (Auto) (0.00-0.50) K/uL Baso # (Auto) (0.00-0.20) K/uL Immature Gran # (Auto) (0.01-0.20) K/uL PT (9.0-12.0) Seconds INR (0.9-1.1) Sodium (136-145) mmol/L Potassium (3.5-5.1) mmol/L Chloride (98-107) mmol/L Carbon Dioxide (21-32) mmol/L Anion Gap (3-11) BUN (6-23) mg/dl Creatinine (0.6-1.4) mg/dl Est Cr Clr Drug Dosing ml/min Est GFR ( Amer) ml/min Est GFR (Non-Af Amer) ml/min BUN/Creatinine Ratio (10-20) Glucose (70-99(Fasting)) mg/dl POC Glucose 93 (70-99) mg/dl Calcium (8.6-10.3) mg/dl Phosphorus (2.5-4.9) mg/dl Magnesium (1.7-2.4) mg/dl Total Bilirubin (0.2-1.0) mg/dl AST (13-39) U/L ALT (7-52) U/L Alkaline Phosphatase (34-104) U/L Total Protein (6.0-8.3) gm/dl Albumin (3.4-5.0) gm/dl Globulin (2.5-4.0) gm/dl Albumin/Globulin Ratio (0.9-2) Resident Activity Tracking Resident Involvement: Resident Care Provided Care Provided: Adult Hospital Medicine (6) Urinary tract infection Hematuria presence: with hematuria Urinary tract infection type: site unspecified Qualified Code(s): N39.0 - Urinary tract infection, site not specified; R31.9 - Hematuria, unspecified (9) Anemia Anemia type: unspecified type Qualified Code(s): D64.9 - Anemia, unspecified
[2023-09-06 07:30] LABS: Basophils # (auto) 0.02 K/uL (0.00-0.20); Basophils % (auto) 0.6 %; Eosinophils # (auto) 0.19 K/uL (0.00-0.50); Eosinophils % (auto) 5.5 %; Hematocrit (blood only) 28.3 % (42.0-52.0); Hemoglobin 8.7 g/dl (14.0-18.0); Immature Granulocytes # (auto) 0.01 K/uL (0.01-0.20); Immature Granulocytes % (auto) 0.3 %; Lymphocytes # (auto) 0.48 K/uL (1.20-3.40); Lymphocytes % (auto) 13.8 %; Mean Corpuscular Hemoglobin 28.2 pg (25.0-34.0); Mean Corpuscular Hgb Conc 30.7 g/dL (32.0-36.0); Mean Corpuscular Volume 91.6 fL (80.0-100.0); Mean Platelet Volume 10.8 fL (9.4-12.4); Monocytes # (auto) 0.46 K/uL (0.11-0.59); Monocytes % (auto) 13.2 %; Neutrophils # (auto) 2.32 K/uL (1.40-6.50); Neutrophils % (auto) 66.6 %; Platelet Count 120 K/uL (130-400); RDW Coefficient of Variation 19.8 % (11.5-14.5); RDW Standard Deviation 66.3 fL (36.4-46.3); Red Blood Count 3.09 M/uL (4.70-6.10); White Blood Count 3.48 K/ul (4.8-10.8)
[2023-09-06 07:48] LABS: Albumin Globulin Ratio 0.9 (0.9-2); Albumin Level 3.3 gm/dl (3.4-5.0); BUN Creatinine Ratio 24.4 (10-20); Bilirubin,Total 0.6 mg/dl (0.2-1.0); Calcium 8.7 mg/dl (8.6-10.3); Creatinine Clr Calc Pharmacy 33.3 ml/min; Est GFR (African American) 41.2 ml/min; Est GFR (Non-African American) 35.5 ml/min; Globulin 3.7 gm/dl (2.5-4.0); Magnesium 2.1 mg/dl (1.7-2.4); Phosphorus 1.9 mg/dl (2.5-4.9); Potassium 4.3 mmol/L (3.5-5.1)
[2023-09-06] MEDS ORDERED: POTASSIUM PHOS 3 MMOL/1 ML INFUSION IV STA (07:54)
[2023-09-06 08:03] LABS: INR 4.3 (0.9-1.1); Prothrombin Time 43.2 Seconds (9.0-12.0)
[2023-09-06] MEDS: POTASSIUM PHOSPHATE 21 MMOL in SODIUM CHLORIDE 0.9% 500 ML IV ONE (10:01)
--- NOTE | 2023-09-06 13:44 | Billing Data ---
Date of Service September 06, 2023 Coding Level of Care Code 86167 SUB INP/OBS CARE
[2023-09-07 07:02] LABS: Basophils # (auto) 0.03 K/uL (0.00-0.20); Eosinophils # (auto) 0.28 K/uL (0.00-0.50); Eosinophils % (auto) 9.6 %; Hemoglobin 8.9 g/dl (14.0-18.0); Immature Granulocytes # (auto) 0.01 K/uL (0.01-0.20); Immature Granulocytes % (auto) 0.3 %; Lymphocytes # (auto) 0.44 K/uL (1.20-3.40); Mean Corpuscular Hemoglobin 28.1 pg (25.0-34.0); Mean Corpuscular Hgb Conc 30.7 g/dL (32.0-36.0); Mean Corpuscular Volume 91.5 fL (80.0-100.0); Mean Platelet Volume 10.9 fL (9.4-12.4); Monocytes # (auto) 0.31 K/uL (0.11-0.59); Monocytes % (auto) 10.6 %; Neutrophils # (auto) 1.86 K/uL (1.40-6.50); Neutrophils % (auto) 63.5 %; Platelet Count 119 K/uL (130-400); RDW Coefficient of Variation 19.6 % (11.5-14.5); RDW Standard Deviation 66.7 fL (36.4-46.3); Red Blood Count 3.17 M/uL (4.70-6.10); White Blood Count 2.93 K/ul (4.8-10.8)
[2023-09-07 07:53] LABS: INR 3.9 (0.9-1.1); Prothrombin Time 38.8 Seconds (9.0-12.0)
--- NOTE | 2023-09-07 08:07 | Hospitalist Progress Note ---
Date of Service September 07, 2023 Assessment & Plan (1) Thrombocytopenia: Plan: 78 yo male with PMHx of HFpEF, Cirrhosis, anxiety, DM2, prostate cancer s/p Rezum 12/05/2022 and radiation with recurrent hematuria, failure to thrive who presented with complaints of poor oral intake and associated post-prandial nausea and vomiting. Failure to thrive in adult -Progressive clinical decline since his discharge from [facility] on 08/12/23 - likely multifactorial including his known cirrhosis, anemia, poor oral intake, post prandial N/V, and recurrent UTI's -Head CT and Brain MRI unremarkable -NG tube placed -[place] Hand consulted for management of tube feeds. 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 He pulled out his NG tube overnight 09/05 delirium. Will discuss further with family on possibility of another NG tube trial, however, I advise against this given he failed previous attempt. Will encourage oral intake with high calorie items such as ice cream. Boost ordered. -Cont. daily thiamine. -Speech ordered -Consider palliative consult -PT/OT Nausea & vomiting -Patient has been experiencing post-prandial nausea and vomiting over the past month. He states that he gets full easily and denies pain prior to or after vomiting. -CT A/P without obvious explanation -cont. Protonix, Pepcid, Carafate, zofran -Piece Hand following -May consider barium swallow to further assess for gastroparesis given h/o diabetes. Could also consider trial with Reglan. snf, refractory gastropareses would require PEG tube which family would not want. S/P AVR Supratherapeutic INR -Elevated on admission. s/p vit K. Monitoring INR titrate warfain as needed. -Likely a combination of his poor nutritional status and known cirrhosis -goal is 2.5-3.5 with his prosthetic aortic valve -INR 3.9 - warfarin held VINICIUS (acute kidney injury) -Baseline ~1.7, Cr elevated - initial thought 2/2 pre renal however now appearing fluid overloaded - cont. lasix -Avoid nephrotoxic agents Urinary tract infection -initial UA appeared infectious. Culture unclear. Abx completed. Pleural effusion -BL pleural effusions appear slightly more progressed than last admission - likely 2/2 cirrhosis and CHF - diuresing -Pulmonology following Thrombocytopenia -Noted to be 117 on admission, stable -Likely 2/2 cirrhosis Cirrhosis -Does not appear to be encephalopathic on exam, LFT's are stable -Has appointment with [facility] Hepatology next month -Avoid nephrotoxic agents, monitor volume status closely Diabetes -Monitor BSG q6h -hypoglycemic protocol in place - has had low BSG 2/2 poor oral intake -Nutrition following Hypothyroidism -Continue levothyroxine DVT ppx: Warfarin FEN/GI: DM2 Code Status: Full Dispo: med tele (2) Hypothyroidism: (3) Failure to thrive in adult: (4) Acute alteration in mental status: (5) Pleural effusion: (6) Urinary tract infection: (7) Acute dehydration: (8) Generalized weakness: (9) Anemia: (10) Cirrhosis: (11) Acute UTI (urinary tract infection): (12) CHF (congestive heart failure): (13) VINICIUS (acute kidney injury): Admission and Anticipated Discharge Date Admission Date: August 31, 2023 Supervising Physician Co-Signing Physician Notes I personally examined the patient and verified all saenz points of history and exam, discussed case, and agree with decision making with Dr. Jacob. ROS unable to be obtained thought interactive and denies having any pain Vital stable. Appears in no acute distress, resting in bed. Heart regular rate and rhythm, lungs CTA anteriorly. Nonlabored breathing. Reviewed labspersistent leukopenia, anemia stable, creatinine slight improvement to 1.73, AST remains elevated Failure to thriveseems to be multifactorial declinesuspect that his undefined, acutely seems to be severe, protein calorie malnutrition is a main player in his decline. At last admission his nutrition was discussed in depth, had dietitian consult, but unfortunately since he has been home he has had postprandial nausea and early satiety making it impossible to reach nutrition goals. Postprandial nausea/early satietyMain differentials would be stress gastritis (was septic at last admission), versus an unfortunate overall decline from malnutrition/third spacing/gut edema versus other such as gastroparesis. Had not doing better yet despite aggressive acid suppression - after d/w family - NGT was placed to assess if he can tolerate adequate nutrition/bridge to get through delirium. Unfortunately, patient had several bouts of emesis and removed his NGT 09/04 into 09/05. Discussion with family about whether or not to give a second trial with NGT in light of overnight events - will continue to hold replacement today given ongoing supratherapeutic INR and patient's delirium. Boost ordered. Speech ordered. Could potentially consider additional w/u for gastroparesis given diabetic history vs empiric trial of metoclopramide, though the question remains what the long-term goal would be as refractory gastroparesis would likely entail GJ tube. May also consider assistance in this regard with consultation of palliative care. Acute on chronic diastolic CHF versus third spaced fluid from malnutrition, versus a combination of CHF and cirrhosis mediated ascites- was requiring O2 but not now; discussed with family the concern would be whether or not he is truly just a CHF exacerbation versus if he is third spacing fluids from severe malnutritionright now not showing clear signs of not being able to tolerate more diuresis, and therefore we will continue to give diuretic and follow closely, but discussion previously with family in detail that if he starts to show lower blood pressures and an VINICIUS (i.e. suggestion that we have diuresed him as far as he can) and he still looks clinically wetthis would be very concerning. Continue to follow this closely, continue Lasix and daily labs for now. Coumadin coagulopathyGoal INR 2.5-3.5. Hold coumadin today, continue to follow Otherwise as above Subjective Patient seen at bedside. Appear more alert than previous this morning. Easier to understand however still appears confused. Review of Systems Review of Systems: Unobtainable due to cognitive status Physical Exam Physical Exam: Constitutional: in no acute distress, pleasant. Alert. Vitals as above. HEENT: No scleral injection or discharge.Moist mucous membranes. Neck: Supple without lymphadenopathy. Trachea midline. Lungs: Clear to auscultation bilaterally with good effort. No wheezes/rales/rhonchi. Cardiac: RRR.No murmurs.No lower extremity edema. 2+ distal peripheral pulses. Abdomen: Bowel sounds present. Soft, nontender, and nondistended.No guarding. MSK: No cyanosis or clubbing. Skin: No abnormal rashes, warm, dry. Neurologic: no focal deficits Results & Data Results & Data Vital Signs (Past 12 Hours) Vital Signs Temp Pulse Pulse Resp BP Pulse Ox O2 Del Method 09/07/23 07:35 36.8 C 80 18 138/70 93 Room Air 09/07/23 03:09 36.5 C 76 16 130/61 93 Room Air 09/06/23 23:53 82 09/06/23 23:02 36.3 C L 81 16 129/68 94 Room Air 09/06/23 21:00 O2 Del Method 09/07/23 07:35 09/07/23 03:09 09/06/23 23:53 09/06/23 23:02 09/06/23 21:00 Room Air Laboratory Results 09/07/23 09/06/23 09/06/23 Range/Units 06:45 20:03 17:08 WBC 2.93 L (4.8-10.8) K/ul RBC 3.17 L (4.70-6.10) M/uL Hgb 8.9 L (14.0-18.0) g/dl Hct 29.0 L (42.0-52.0) % MCV 91.5 (80.0-100.0) fL MCH 28.1 (25.0-34.0) pg MCHC 30.7 L (32.0-36.0) g/dL RDW Std Deviation 66.7 H (36.4-46.3) fL RDW Coeff of Nick 19.6 H (11.5-14.5) % Plt Count 119 L (130-400) K/uL MPV 10.9 (9.4-12.4) fL Immature Gran % (Auto) 0.3 % Neut % (Auto) 63.5 % Lymph % (Auto) 15.0 % [place] % (Auto) 10.6 % Eos % (Auto) 9.6 % Baso % (Auto) 1.0 % Neut # (Auto) 1.86 (1.40-6.50) K/uL Lymph # (Auto) 0.44 L (1.20-3.40) K/uL [place] # (Auto) 0.31 (0.11-0.59) K/uL Eos # (Auto) 0.28 (0.00-0.50) K/uL Baso # (Auto) 0.03 (0.00-0.20) K/uL Immature Gran # (Auto) 0.01 (0.01-0.20) K/uL PT 38.8 H (9.0-12.0) Seconds INR 3.9 H (0.9-1.1) Sodium Pending Potassium Pending Chloride Pending Carbon Dioxide Pending Anion Gap Pending BUN Pending Creatinine Pending Est Cr Clr Drug Dosing Pending Est GFR ( Amer) Pending Est GFR (Non-Af Amer) Pending BUN/Creatinine Ratio Pending Glucose Pending POC Glucose 80 83 (70-99) mg/dl Calcium Pending Phosphorus Pending Magnesium Pending Total Bilirubin Pending AST Pending ALT Pending Alkaline Phosphatase Pending Total Protein Pending Albumin Pending Globulin Pending Albumin/Globulin Ratio Pending 09/06/23 09/06/23 09/06/23 Range/Units 12:08 12:06 08:24 WBC (4.8-10.8) K/ul RBC (4.70-6.10) M/uL Hgb (14.0-18.0) g/dl Hct (42.0-52.0) % MCV (80.0-100.0) fL MCH (25.0-34.0) pg MCHC (32.0-36.0) g/dL RDW Std Deviation (36.4-46.3) fL RDW Coeff of Nick (11.5-14.5) % Plt Count (130-400) K/uL MPV (9.4-12.4) fL Immature Gran % (Auto) % Neut % (Auto) % Lymph % (Auto) % [place] % (Auto) % Eos % (Auto) % Baso % (Auto) % Neut # (Auto) (1.40-6.50) K/uL Lymph # (Auto) (1.20-3.40) K/uL [place] # (Auto) (0.11-0.59) K/uL Eos # (Auto) (0.00-0.50) K/uL Baso # (Auto) (0.00-0.20) K/uL Immature Gran # (Auto) (0.01-0.20) K/uL PT (9.0-12.0) Seconds INR (0.9-1.1) Sodium Potassium Chloride Carbon Dioxide Anion Gap BUN Creatinine Est Cr Clr Drug Dosing Est GFR ( Amer) Est GFR (Non-Af Amer) BUN/Creatinine Ratio Glucose POC Glucose 74 69 L* 84 (70-99) mg/dl Calcium Phosphorus Magnesium Total Bilirubin AST ALT Alkaline Phosphatase Total Protein Albumin Globulin Albumin/Globulin Ratio Resident Activity Tracking Resident Involvement: Resident Care Provided Care Provided: Adult Hospital Medicine (6) Urinary tract infection Hematuria presence: with hematuria Urinary tract infection type: site unspecified Qualified Code(s): N39.0 - Urinary tract infection, site not specified; R31.9 - Hematuria, unspecified (9) Anemia Anemia type: unspecified type Qualified Code(s): D64.9 - Anemia, unspecified
[2023-09-07 08:14] LABS: Albumin Globulin Ratio 0.9 (0.9-2); Albumin Level 3.3 gm/dl (3.4-5.0); BUN Creatinine Ratio 23.1 (10-20); Bilirubin,Total 0.7 mg/dl (0.2-1.0); Calcium 8.8 mg/dl (8.6-10.3); Creatinine Clr Calc Pharmacy 33.6 ml/min; Est GFR (African American) 43.2 ml/min; Est GFR (Non-African American) 37.3 ml/min; Globulin 3.8 gm/dl (2.5-4.0); Magnesium 2.1 mg/dl (1.7-2.4); Phosphorus 2.6 mg/dl (2.5-4.9); Potassium 4.3 mmol/L (3.5-5.1); Total Protein 7.1 gm/dl (6.0-8.3)
--- NOTE | 2023-09-07 15:34 | Billing Data ---
Date of Service September 07, 2023 Coding Level of Care Code 18004 SUB INP/OBS CARE
[2023-09-08] MEDS: MIRTAZAPINE TAB 15 MG TAB PO ONE (00:59)
[2023-09-08 06:49] LABS: Phosphorus 2.5 mg/dl (2.5-4.9)
[2023-09-08 06:53] LABS: INR 3.6 (0.9-1.1)
--- NOTE | 2023-09-08 08:30 | Hospitalist Progress Note ---
Date of Service September 08, 2023 Assessment & Plan (1) Thrombocytopenia: Plan: 78 yo male with PMHx of HFpEF, Cirrhosis, anxiety, DM2, prostate cancer s/p Rezum 12/05/2022 and radiation with recurrent hematuria, failure to thrive who presented with complaints of poor oral intake and associated post-prandial nausea and vomiting. Failure to thrive in adult -Progressive clinical decline since his discharge from [facility] on 08/12/23 - likely multifactorial including his known cirrhosis, anemia, poor oral intake, post prandial N/V, and recurrent UTI's -Head CT and Brain MRI unremarkable -No longer with NG tube, pt removed himself; family does not want PEG tube -Will encourage oral intake with high calorie items such as ice cream. Boost ordered. -Cont. daily thiamine. -Speech consult: supervised meals, thin liquids, carb consistent diet, mouth care -Consider palliative consult -PT/OT: recommend rehab Nausea & vomiting -Patient has been experiencing post-prandial nausea and vomiting over the past month. He states that he gets full easily and denies pain prior to or after vomiting. -CT A/P without obvious explanation -cont. 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 S/P AVR Supratherapeutic INR -Elevated on admission. s/p vit K. Monitoring INR titrate warfain as needed. -Likely a combination of his poor nutritional status and known cirrhosis -goal is 2.5-3.5 with his prosthetic aortic valve -INR 3.6 - warfarin held VINICIUS (acute kidney injury) -Baseline ~1.7, Cr elevated - initial thought 2/2 pre renal however now appearing fluid overloaded - cont. lasix -Avoid nephrotoxic agents Urinary tract infection -initial UA appeared infectious. Culture unclear. Abx completed. Pleural effusion -BL pleural effusions appear slightly more progressed than last admission - likely 2/2 cirrhosis and CHF - diuresing -Pulmonology following Thrombocytopenia -Noted to be 117 on admission, stable -Likely 2/2 cirrhosis Cirrhosis -Does not appear to be encephalopathic on exam, LFT's are stable -Has appointment with [facility] Hepatology next month -Avoid nephrotoxic agents, monitor volume status closely Diabetes -Monitor BSG q6h -hypoglycemic protocol in place - has had low BSG 2/2 poor oral intake -Nutrition following Hypothyroidism -Continue levothyroxine DVT ppx: Warfarin FEN/GI: DM2 Code Status: Full Dispo: med tele (2) Hypothyroidism: (3) Failure to thrive in adult: (4) Acute alteration in mental status: (5) Pleural effusion: (6) Urinary tract infection: (7) Acute dehydration: (8) Generalized weakness: (9) Anemia: (10) Cirrhosis: (11) Acute UTI (urinary tract infection): (12) CHF (congestive heart failure): (13) VINICIUS (acute kidney injury): Admission and Anticipated Discharge Date Admission Date: August 31, 2023 Supervising Physician Co-Signing Physician Notes Attending Physician Supervision Note: I independently interviewed and examined the patient and verified the saenz history and physical, reviewed labs and image studies and agree with findings and care plan noted above. comfortable in bed. didn't sleep at night - sleeping this morning. Vital stable. Appears in no acute distress, resting in bed. Heart regular rate and rhythm, lungs CTA anteriorly. Nonlabored breathing. Failure to thrive/ severe, protein calorie malnutrition - Last admission related to poor PO intake. Concern of cognitive deficit contributing. Had dietary consult but after discharge developed post prandial nausea and early satiety. See below. Postprandial nausea/early satiety amiodarone side effect/third spacing/gut edema/gastroparesis. No improvement with acid suppression. NGT was placed - had several bouts of emesis and removed his NGT 09/04 into 09/05. Ate 75% of his lunch today. -if symptoms relapses - consider barium swallow and also re-discussion with family regarding goals of care. Acute on chronic diastolic CHF vs a combination of CHF and cirrhosis mediated ascites- Off O2. Creatinine improving with diuresis. continue Lasix and daily labs. Coumadin coagulopathyGoal INR 2.5-3.5. INR 3.6. Hold coumadin today, continue to follow Otherwise as above Subjective Patient seen at bedside. Not interactive, hpi and ros limited. Not in any acute distress, no complaints Review of Systems Review of Systems: reviewed, per HPI Physical Exam Physical Exam: Constitutional: chronically ill appearing, no acute distress HEENT: NCAT, no conjunctival injection CV: regular rhythm, +systolic murmur, extremities well-perfused, no LE edema Resp: CTABL, no wheezes/rales/rhonchi appreciated, no increased work of breathing GI: soft, nondistended, nontender, BS normoactive MSK: no gross deformities appreciated Skin: warm, dry, no rash appreciated Neuro: alert, oriented, no focal neurologic deficit appreciated Results & Data Results & Data Vital Signs (Past 12 Hours) Vital Signs Temp Pulse Pulse Resp BP BP Pulse Ox 09/08/23 07:41 71 09/08/23 03:30 36.6 C 78 16 148/73 H 93 09/07/23 23:32 83 09/07/23 22:51 36.8 C 80 16 134/64 93 O2 Del Method 09/08/23 07:41 09/08/23 03:30 Room Air 09/07/23 23:32 09/07/23 22:51 Room Air Resident Activity Tracking Resident Involvement: Resident Care Provided Care Provided: Adult Hospital Medicine (6) Urinary tract infection Hematuria presence: with hematuria Urinary tract infection type: site unspecified Qualified Code(s): N39.0 - Urinary tract infection, site not specified; R31.9 - Hematuria, unspecified (9) Anemia Anemia type: unspecified type Qualified Code(s): D64.9 - Anemia, unspecified
--- NOTE | 2023-09-08 09:31 | Gastrointestinal Consultation ---
Date of Consultation September 08, 2023 Assessment & Plan (1) Nausea & vomiting: GI asked to see for post prandial nausea/vomiting. Per nursing, no reported issues over night and no nausea/vomiting issues at this point today. patient is denying any nausea or abdominal pain this morning. Discussed case with Dr. Ward who advised on plan. - continue with protonix 40mg IV BID, famotidine 20mg IV BID, carafate 1 gm qid, and zofran 4mg IV q 6 hours. - if ongoing issues and concern for a gastroparesis, could consider a trial of reglan prior to meals to see if this helps. Supervising Physician Co-Signing Physician Notes I saw the patient and agree with the findings as documented by NEL Prieto History of Present Illness Reason for Consultation: postprandial Nausea/vomiting Requesting Physician: Aristeo Jacob DO Attending Physician: Gricelda Denise MD History of Present Illness Patient is a 78 year old male with a past medical history of Heart failure, Cirrhosis, anxiety, DM II, prostate cancer s/p Rezum 12/05/2022 and radiation with recurrent hematuria, failure to thrive who presented to [facility] [place] over a week ago with complaints of poor oral intake and associated post-prandial nausea and vomiting. Patient tells me he does not feel nauseated this morning and denies any vomiting or abdominal pain today. He is hard to direct and does not always answer questions appropriately. He seems very lethargic and he is not oriented. When asked where he is, he tells me he is at home. He cannot tell me the month or year accurately. His chart lists a history of cirrhosis, but ammonia level on 08/31/23 was wnl. Per chart, Initially he was tolerating 40ml/hr Nutramen however he did have N/V when PO meals/meds were taken in addition. He pulled out his NG tube overnight 3/ delirium. I spoke with nursing, there were no issues with dinner last evening or over night other than patient has been unable to feed himself. He was able to tolerate ice cream with taking his medications He is currently taking protonix 40mg IV BID, famotidine 20mg IV BID, carafate 1 gm qid, and zofran 4mg IV q 6 hours. Allergies Allergy/AdvReac Type Severity Reaction Status Date / Time plasma protein fraction Allergy Severe FROZEN Verified 09/01/23 16:36 PLASMA-- DEVELOPED HIVES Home Medications Medication Instructions Recorded Confirmed Type amiodarone 200 mg tablet 100 mg PO QA 10/07/22 08/31/23 History cholecalciferol (vitamin D3) 50 50 mcg PO .@199910/07/22 08/31/23 History mcg (2,000 unit) capsule clonazepam 0.5 mg tablet 0.5 mg PO DAILY PRN Anxiety 10/07/22 08/31/23 History fenofibric acid (choline) 135 mg 135 mg PO QAM 10/07/22 08/31/23 History capsule,delayed release furosemide 20 mg tablet 0 mg PO QA 10/07/22 08/31/23 History hydrocortisone acetate 1 % topical 1 applic topical BID PRN Skin 10/07/22 08/31/23 History cream Irritation metformin 1,000 mg tablet 0 mg PO BID 10/07/22 08/31/23 History metoprolol tartrate 25 mg tablet 50 mg PO .@199910/07/22 08/31/23 History pantoprazole 40 mg tablet,delayed 40 mg PO .@169910/07/22 08/31/23 History release aripiprazole 2 mg tablet (Abilify) 2 mg PO QA 11/14/22 08/31/23 History simethicone 125 mg capsule 125 mg PO DAILY PRN gas pain 11/14/22 08/31/23 Hist ory metoprolol tartrate 25 mg tablet 25 mg PO QA 11/25/22 08/31/23 History sertraline 100 mg tablet 100 mg PO .@199911/25/22 08/31/23 History tamsulosin 0.4 mg capsule 0.4 mg PO .@199911/25/22 08/31/23 History ferrous fumarate-vitamin C 66 1 tab PO 3XWK ##0 08/08/23 08/31/23 History mg-125 mg chewable tablet warfarin 2 mg tablet 3 mg PO DAILY 08/08/23 08/31/23 History cyanocobalamin (vitamin B-12) 1,000 mcg PO DAILY 08/31/23 08/31/23 History 1,000 mcg tablet (Vitamin B-12) levothyroxine 75 mcg tablet 75 mcg PO .NOON 08/31/23 08/31/23 History (Synthroid) mirtazapine 7.5 mg tablet 15 mg PO HS 08/31/23 08/31/23 History Patient History Medical History (Updated 09/08/23 @ 00:08 by Background Daemon) Bilateral pleural effusion Volume overload Sepsis Acute UTI (urinary tract infection) CHF (congestive heart failure) VINICIUS (acute kidney injury) Hyperkalemia EKG abnormalities Indwelling Duran catheter present Diabetes mellitus, type 2 NIDDM Osteoarthritis GERD (gastroesophageal reflux disease) Anxiety Hx of prostatic malignancy Spring 2020 Treated with radiation treatments Hx of aortic aneurysm s/p107/2020 in [facility] Follows with [facility] Cardiology Hypertension Suspected sleep apnea History of COVID-19 x2 Most recent home test positive 10/13/22- asymptomatic (tested d/t family members were positive) History of fractured vertebra Cervical fracture 11/18/21- medical management recommended, follows with physical therapy, "full ROM" per patient Surgical History (Updated 09/08/23 @ 00:08 by Background Daemon) History of flexible sigmoidoscopy History of colonoscopy History of cholecystectomy History of appendectomy History of prostate surgery to stop prostate bleeding in Summer 2020 History of aortic aneurysm repair 05/2021 in [facility] H/O heart surgery graphite aortic valve placed in [place] at age 44. (a [facility]) Family History Mother Diabetes Hypertension Father Diabetes Other No family history of adverse response to anesthesia Social History Smoking Status: Never smoker Second Hand Exposure: No; Do You Dip or Chew Tobacco: No; Hx Alcohol Use: No Hx Substance Use: No Preferred Language: Danish Communication Ability: Effective Scaleman Required: No Beliefs That Will Affect Care: None marital status: Current Living Situation: Spouse current occupational status: retired Feels Safe at Home: No Is there a partner from a previous relationship who is making you feel unsafe now?: No Assistive Devices: Cane, Walker and Wheelchair Review of Systems Review of Systems: Unobtainable due to cognitive status Physical Exam Constitutional: Exam was difficult as he was trying to grab my stethoscope as I was auscultating. Respiratory: normal respiratory effort. Cardiovascular: RRR Gastrointestinal (Abdomen): normal bowel sounds, soft, nontender, no hepatosplenomegaly Results & Data Vital Signs (Past 12 Hours) Vital Signs Temp Pulse Pulse Resp BP BP Pulse Ox 09/08/23 08:29 97.7 F 69 16 147/70 H 96 09/08/23 07:41 71 09/08/23 03:30 97.9 F 78 16 148/73 H 93 09/07/23 23:32 83 09/07/23 22:51 98.2 F 80 16 134/64 93 O2 Del Method 09/08/23 08:29 Room Air 09/08/23 07:41 09/08/23 03:30 Room Air 09/07/23 23:32 09/07/23 22:51 Room Air PG Care Time/CCT Total # of Minutes Spent Total Time Spent with Patient: Total time spent has met or exceeded 40 minutes which includes reviewing records, talking with patient and nursing, discussion of case with Dr. Ward, as well as record documentation. Coding Level of Care Code 55495 INT INP/OBS CARE 1/40MIN Diagnoses Nausea & vomiting R11.2
[2023-09-08 11:04] LABS: BUN Creatinine Ratio 20.8 (10-20); Calcium 8.7 mg/dl (8.6-10.3); Creatinine Clr Calc Pharmacy 34.6 ml/min; Est GFR (African American) 44.7 ml/min; Est GFR (Non-African American) 38.6 ml/min; Potassium 4.2 mmol/L (3.5-5.1)
--- NOTE | 2023-09-09 07:52 | Hospitalist Progress Note ---
Date of Service September 09, 2023 Assessment & Plan (1) Thrombocytopenia: Plan: 78 yo male with PMHx of HFpEF, Cirrhosis, anxiety, DM2, prostate cancer s/p Rezum 12/05/2022 and radiation with recurrent hematuria, failure to thrive who presented with complaints of poor oral intake and associated post-prandial nausea and vomiting. Failure to thrive in adult -Progressive clinical decline since his discharge from [facility] on 08/12/23 - likely multifactorial including his known cirrhosis, anemia, poor oral intake, post prandial N/V, and recurrent UTI's -Head CT and Brain MRI unremarkable -No longer with NG tube, pt removed himself; family does not want PEG tube -Will encourage oral intake with high calorie items such as ice cream. Boost ordered. -Cont. daily thiamine. -Speech consult: supervised meals, thin liquids, carb consistent diet, mouth care -Consider palliative consult -PT/OT: recommend rehab Nausea & vomiting -Patient has been experiencing post-prandial nausea and vomiting over the past month. He states that he gets full easily and denies pain prior to or after vomiting. -CT A/P without obvious explanation -cont. 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 S/P AVR Supratherapeutic INR -Elevated on admission. s/p vit K. Monitoring INR titrate warfain as needed. -Likely a combination of his poor nutritional status and known cirrhosis -goal is 2.5-3.5 with his prosthetic aortic valve -INR 3.6 - warfarin held VINICIUS (acute kidney injury) -Baseline ~1.7, Cr elevated - initial thought 2/2 pre renal however now appearing fluid overloaded - cont. lasix -Avoid nephrotoxic agents Urinary tract infection -initial UA appeared infectious. Culture unclear. Abx completed. Pleural effusion -BL pleural effusions appear slightly more progressed than last admission - likely 2/2 cirrhosis and CHF - diuresing -Pulmonology following Thrombocytopenia -Noted to be 117 on admission, stable -Likely 2/2 cirrhosis Cirrhosis -Does not appear to be encephalopathic on exam, LFT's are stable -Has appointment with [facility] Hepatology next month -Avoid nephrotoxic agents, monitor volume status closely Diabetes -Monitor BSG q6h -hypoglycemic protocol in place - has had low BSG 2/2 poor oral intake -Nutrition following Hypothyroidism -Continue levothyroxine DVT ppx: Warfarin FEN/GI: DM2 Code Status: Full Dispo: med tele (2) Hypothyroidism: (3) Failure to thrive in adult: (4) Acute alteration in mental status: (5) Pleural effusion: (6) Urinary tract infection: (7) Acute dehydration: (8) Generalized weakness: (9) Anemia: (10) Cirrhosis: (11) Acute UTI (urinary tract infection): (12) CHF (congestive heart failure): (13) VINICIUS (acute kidney injury): Admission and Anticipated Discharge Date Admission Date: August 31, 2023 Supervising Physician Co-Signing Physician Notes Attending Physician Supervision Note: I independently interviewed and examined the patient and verified the saenz histor y and physical, reviewed labs and image studies and agree with findings and care plan noted above. drastic improvement this am - out of bed. working with PT. able to hold conversation. Vital stable. Appears in no acute distress. Heart regular rate and rhythm, lungs CTA anteriorly. Nonlabored breathing. Failure to thrive/ severe, protein calorie malnutrition - Last admission related to poor PO intake. Concern of mild cognitive deficit in setting of fluid overload, cirrhosis and amiodarone side effect contributing. Had dietary consult last admit but after discharge developed post prandial nausea and early satiety. See below. Postprandial nausea/early satiety amiodarone side effect/third spacing/gut edema/gastroparesis. No improvement with acid suppression. NGT was placed - had several bouts of emesis and removed his NGT 09/04 into 09/05. Ate 75% of his lunch today. -drastic improvement this am. continue to encourage PO intake. Acute on chronic diastolic CHF vs a combination of CHF and cirrhosis mediated ascites- Off O2. Creatinine improving with diuresis. continue Lasix and daily labs. Coumadin coagulopathyGoal INR 2.5-3.5. INR 2.5. resume coumadin. follow INR Otherwise as above Subjective Patient seen at bedside. Much more awake and alert today. Eating breakfast and almost none remaining on plate when interviewed today. No acute complaints. Review of Systems Review of Systems: reviewed, per HPI Physical Exam Physical Exam: Constitutional: chronically ill appearing, no acute distress HEENT: NCAT, no conjunctival injection CV: regular rhythm, +systolic murmur, extremities well-perfused, no LE edema Resp: CTABL, no wheezes/rales/rhonchi appreciated, no increased work of breathing GI: soft, nondistended, nontender, BS normoactive MSK: no gross deformities appreciated Skin: warm, dry, no rash appreciated Neuro: alert, oriented, no focal neurologic deficit appreciated Results & Data Results & Data Vital Signs (Past 12 Hours) Vital Signs Temp Pulse Pulse Resp BP BP Pulse Ox 09/09/23 03:16 36.7 C 73 18 147/72 H 94 09/09/23 01:24 80 09/08/23 23:32 36.8 C 79 20 137/70 92 09/08/23 19:58 36.8 C 75 20 138/62 92 O2 Del Method 09/09/23 03:16 Room Air 09/09/23 01:24 09/08/23 23:32 Room Air 09/08/23 19:58 Room Air Resident Activity Tracking Resident Involvement: Resident Care Provided Care Provided: Adult Hospital Medicine (6) Urinary tract infection Hematuria presence: with hematuria Urinary tract infection type: site unspecified Qualified Code(s): N39.0 - Urinary tract infection, site not specified; R31.9 - Hematuria, unspecified (9) Anemia Anemia type: unspecified type Qualified Code(s): D64.9 - Anemia, unspecified
[2023-09-09 08:33] LABS: INR 2.5 (0.9-1.1); Prothrombin Time 25.9 Seconds (9.0-12.0)
[2023-09-09] MEDS: WARFARIN SOD 1 MG TAB PO SCH (17:22)
[2023-09-10 06:58] LABS: INR 2.1 (0.9-1.1); Prothrombin Time 22.4 Seconds (9.0-12.0)
[2023-09-10] MEDS: ONDANSETRON 4 MG OD TAB PO SCH (12:44)
--- NOTE | 2023-09-10 14:37 | Hospitalist Progress Note ---
Date of Service September 10, 2023 Assessment & Plan (1) Thrombocytopenia: Plan: 78 yo male with PMHx of HFpEF, Cirrhosis, anxiety, DM2, prostate cancer s/p Rezum 12/05/2022 and radiation with recurrent hematuria, failure to thrive who presented with complaints of poor oral intake and associated post-prandial nausea and vomiting. Failure to thrive in adult -Greatly improved -Continue regular diet with supplements as patient desires -Okay for discharge to rehab -Progressive clinical decline since his discharge from [facility] on 08/12/23 - likely multifactorial including his known cirrhosis, anemia, poor oral intake, post prandial N/V, and recurrent UTI's -Head CT and Brain MRI unremarkable -No longer with NG tube, pt removed himself; family does not want PEG tube -Cont. daily thiamine. -Speech consult: supervised meals, thin liquids, carb consistent diet, mouth care -PT/OT: recommend rehab Nausea & vomiting -Improved, tolerating diet with stomach regimen as outlined below -Patient has been experiencing post-prandial nausea and vomiting over the past month. He states that he gets full easily and denies pain prior to or after vomiting. -CT A/P without obvious explanation -cont. Protonix, Pepcid, Carafate, zofran - continue these on discharge -Senior Javascript Developer following -GI consulted: recommend management as above and advised Reglan trial prior to meals -May consider barium swallow to further assess for gastroparesis given h/o diabetes, however pt unlikely to tolerate -MCC, refractory gastropareses would require PEG tube which family would not want. S/P AVR -Elevated on admission. s/p vit K. Monitoring INR titrate warfain as needed. -Likely a combination of his poor nutritional status and known cirrhosis -goal is 2.5-3.5 with his prosthetic aortic valve VINICIUS (acute kidney injury) -Baseline ~1.7, Cr elevated - -cont. lasix 40mg PO qAM on discharge -Avoid nephrotoxic agents Urinary tract infection -initial UA appeared infectious. Culture unclear. Abx completed. Pleural effusion -BL pleural effusions appear slightly more progressed than last admission - likely 2/2 cirrhosis and CHF - diuresing -Pulmonology following Thrombocytopenia -Noted to be 117 on admission, stable -Likely 2/2 cirrhosis Cirrhosis -Does not appear to be encephalopathic on exam, LFT's are stable -Has appointment with [facility] Hep[facility] next month -Avoid nephrotoxic agents, monitor volume status closely Diabetes -Monitor BSG q6h -hypoglycemic protocol in place - has had low BSG 2/2 poor oral intake -Nutrition following Hypothyroidism -Continue levothyroxine DVT ppx: Warfarin FEN/GI: DM2 Code Status: Full Dispo: med tele (2) Hypothyroidism: (3) Failure to thrive in adult: (4) Acute alteration in mental status: (5) Pleural effusion: (6) Urinary tract infection: (7) Acute dehydration: (8) Generalized weakness: (9) Anemia: (10) Cirrhosis: (11) Acute UTI (urinary tract infection): (12) CHF (congestive heart failure): (13) VINICIUS (acute kidney injury): Admission and Anticipated Discharge Date Admission Date: August 31, 2023 Supervising Physician Co-Signing Physician Notes Attending Physician Supervision Note: I independently interviewed and examined the patient and verified the saenz history and physical, reviewed labs and image studies and agree with findings and care plan noted above. awake this am. thought he was in a flight and the flight attendent was serving him food. Vital stable. Appears in no acute distress. Heart regular rate and rhythm, lungs CTA anteriorly. Nonlabored breathing. Delirium - with concern of underlying dementia. Has been more alert now. continue to reorient, supportive care. Failure to thrive/ severe, protein calorie malnutrition - Last admission related to poor PO intake. Concern of mild cognitive deficit in setting of fluid overload, cirrhosis and amiodarone side effect contributing. Had dietary consult last admit but after discharge developed post prandial nausea and early satiety. See below. Postprandial nausea/early satiety amiodarone side effect/third spacing/gut ed shiva/gastroparesis. No improvement with acid suppression. NGT was placed - had several bouts of emesis and removed his NGT 09/04 into 09/05. -eating better. staying awake through the day. Acute on chronic diastolic CHF and cirrhosis mediated ascites- continue Lasix. check bmp in am. s/p AVR/Coumadin coagulopathyGoal INR 2.5-3.5. INR 2.1. coumadin dose adjusted. follow INR Otherwise as above Subjective Patient seen at bedside. Continues to be much more awake and alert than prior. Tolerating diet well; voiding and stooding well.. No acute complaints. Review of Systems Review of Systems: reviewed, per HPI Physical Exam Physical Exam: Constitutional: chronically ill appearing, no acute distress HEENT: NCAT, no conjunctival injection CV: regular rhythm, +systolic murmur, extremities well-perfused, no LE edema Resp: CTABL, no wheezes/rales/rhonchi appreciated, no increased work of breathing GI: soft, nondistended, nontender, BS normoactive MSK: no gross deformities appreciated Skin: warm, dry, no rash appreciated Neuro: alert, oriented, no focal neurologic deficit appreciated Results & Data Results & Data Vital Signs (Past 12 Hours) Vital Signs Temp Pulse Pulse Pulse Resp BP BP 09/10/23 11:48 36.4 C L 67 16 110/68 09/10/23 07:50 36.4 C L 65 16 109/57 L 09/10/23 07:44 66 09/10/23 03:20 36.8 C 72 18 130/69 Pulse Ox O2 Del Method 09/10/23 11:48 94 Room Air 09/10/23 07:50 92 Room Air 09/10/23 07:44 09/10/23 03:20 95 Room Air Resident Activity Tracking Resident Involvement: Resident Care Provided Care Provided: Adult Hospital Medicine (6) Urinary tract infection Hematuria presence: with hematuria Urinary tract infection type: site unspecified Qualified Code(s): N39.0 - Urinary tract infection, site not specified; R31.9 - Hematuria, unspecified (9) Anemia Anemia type: unspecified type Qualified Code(s): D64.9 - Anemia, unspecified
[2023-09-10] MEDS: WARFARIN SOD 2 MG TAB PO SCH (17:56)
[2023-09-11] MEDS: MIRTAZAPINE TAB 15 MG TAB PO ONE (01:09)
[2023-09-11] MEDS: OLANZapine 10 MG/2.1 ML SDV IM STA ×2 (02:00→17:40)
[2023-09-11] MEDS ORDERED: OLANZapine 10 MG/2.1 ML SDV IM PRN ×2 (03:51→17:53)
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
[2023-09-11 06:26] LABS: INR 1.8 (0.9-1.1); Prothrombin Time 18.8 Seconds (9.0-12.0)
[2023-09-11] MEDS: DEXTROSE 50% 50 ML SYRINGE IV PRN (08:40)
[2023-09-11] MEDS: FUROSEMIDE 40 MG TAB PO SCH (08:49)
--- NOTE | 2023-09-11 14:54 | Hospitalist Progress Note ---
Date of Service September 11, 2023 Assessment & Plan (1) Thrombocytopenia: Plan: 78 yo male with PMHx of HFpEF, Cirrhosis, anxiety, DM2, prostate cancer s/p Rezum 12/05/2022 and radiation with recurrent hematuria, failure to thrive who presented with complaints of poor oral intake and associated post-prandial nausea and vomiting. Failure to thrive in adult -Again refusing to take PO; represents an increase in his delirium on dementia -Continue regular diet with supplements as patient desires -Okay for discharge to rehab -Progressive clinical decline since his discharge from [facility] on 08/12/23 - likely multifactorial including his known cirrhosis, anemia, poor oral intake, post prandial N/V, and recurrent UTI's -Head CT and Brain MRI unremarkable -No longer with NG tube, pt removed himself; family does not want PEG tube -Cont. daily thiamine. -Speech consult: supervised meals, thin liquids, carb consistent diet, mouth care -PT/OT: recommend rehab Nausea & vomiting -Improved, tolerating diet with stomach regimen as outlined below -Patient has been experiencing post-prandial nausea and vomiting over the past month. He states that he gets full easily and denies pain prior to or after vomiting. -CT A/P without obvious explanation -cont. Protonix, Pepcid, Carafate, zofran - continue these on discharge -Lead Web Developer following -GI consulted: recommend management as above and advised Reglan trial prior to meals -May consider barium swallow to further assess for gastroparesis given h/o diabetes, however pt unlikely to tolerate -shelter, refractory gastropareses would require PEG tube which family would not want. S/P AVR -Elevated on admission. s/p vit K. Monitoring INR titrate warfain as needed. -Likely a combination of his poor nutritional status and known cirrhosis -goal is 2.5-3.5 with his prosthetic aortic valve VINICIUS (acute kidney injury) -Baseline ~1.7, Cr elevated - -cont. lasix 40mg PO qAM on discharge -Avoid nephrotoxic agents Urinary tract infection -initial UA appeared infectious. Culture unclear. Abx completed. Pleural effusion -BL pleural effusions appear slightly more progressed than last admission - likely 2/2 cirrhosis and CHF - diuresing -Pulmonology following Thrombocytopenia -Noted to be 117 on admission, stable -Likely 2/2 cirrhosis Cirrhosis -Does not appear to be encephalopathic on exam, LFT's are stable -Has appointment with [facility] Hepatology next month -Avoid nephrotoxic agents, monitor volume status closely Diabetes -Monitor BSG q6h -hypoglycemic protocol in place - has had low BSG 2/2 poor oral intake -Nutrition following Hypothyroidism -Continue levothyroxine DVT ppx: Warfarin FEN/GI: DM2 Code Status: Full Dispo: med tele (2) Hypothyroidism: (3) Failure to thrive in adult: (4) Acute alteration in mental status: (5) Pleural effusion: (6) Urinary tract infection: (7) Acute dehydration: (8) Generalized weakness: (9) Anemia: (10) Cirrhosis: (11) Acute UTI (urinary tract infection): (12) CHF (congestive heart failure): (13) VINICIUS (acute kidney injury): Admission and Anticipated Discharge Date Admission Date: August 31, 2023 Supervising Physician Co-Signing Physician Notes Attending Physician Supervision Note: I independently interviewed and examined the patient and verified the saenz history and physical, reviewed labs and image studies and agree with findings and care plan noted above. agitated last night. received zyprexa. was bitting and pulling this morning. Vital noted. sleeping. Nonlabored breathing. Delirium - with concern of underlying dementia. prn zyprexa. continue to reorient, supportive care. Failure to thrive/ severe, protein calorie malnutrition - Last admission related to poor PO intake. Concern of mild cognitive deficit in setting of fluid overload, cirrhosis and amiodarone side effect contributing. Had dietary consult last admit but after discharge developed post prandial nausea and early satiety. See below. Postprandial nausea/early satiety amiodarone side effect/third spacing/gut edema/gastroparesis. No improvement with acid suppression. NGT was placed - had several bouts of emesis and removed his NGT 09/04 into 09/05. -set back with PO intake today due to delirium. follow. Acute on chronic diastolic CHF and cirrhosis mediated ascites- continue Lasix. s/p AVR/Coumadin coagulopathyGoal INR 2.5-3.5. INR 1.8. coumadin dose adjusted. follow INR Otherwise as above Subjective Patient seen and evaluated at bedside this morning. Overnight patient became confused and combative towards nursing. Received zyprexa and required soft restraints. This am remains much more confused than prior. Review of Systems Review of Systems: reviewed, per HPI Physical Exam Physical Exam: Constitutional: chronically ill appearing, no acute distress HEENT: NCAT, no conjunctival injection CV: regular rhythm, +systolic murmur, extremities well-perfused, no LE edema Resp: CTABL, no wheezes/rales/rhonchi appreciated, no increased work of breathing GI: soft, nondistended, nontender, BS normoactive MSK: no gross deformities appreciated Skin: warm, dry, no rash appreciated Neuro: alert, oriented, no focal neurologic deficit appreciated Results & Data Results & Data Vital Signs (Past 12 Hours) Vital Signs Temp Pulse Resp BP Pulse Ox O2 Del Method 09/11/23 08:15 36.4 C L 65 16 110/72 95 Room Air Resident Activity Tracking Resident Involvement: Resident Care Provided Care Provided: Adult Hospital Medicine (6) Urinary tract infection Hematuria presence: with hematuria Urinary tract infection type: site unspecified Qualified Code(s): N39.0 - Urinary tract infection, site not specified; R31.9 - Hematuria, unspecified (9) Anemia Anemia type: unspecified type Qualified Code(s): D64.9 - Anemia, unspecified
[2023-09-11] MEDS ORDERED: WARFARIN SOD 3 MG TAB PO SCH (16:00)
[2023-09-11 16:07] LABS: Albumin Level 3.5 gm/dl (3.4-5.0); Bilirubin,Total 0.7 mg/dl (0.2-1.0); Calcium 9.3 mg/dl (8.6-10.3); Potassium 5.6 mmol/L (3.5-5.1)
[2023-09-11 16:13] LABS: Albumin Globulin Ratio 0.9 (0.9-2); BUN Creatinine Ratio 19.1 (10-20); Creatinine Clr Calc Pharmacy 29.2 ml/min; Est GFR (African American) 36.5 ml/min; Est GFR (Non-African American) 31.5 ml/min; Globulin 3.9 gm/dl (2.5-4.0); Total Protein 7.4 gm/dl (6.0-8.3)
[2023-09-11] MEDS ORDERED: OLANZapine ZYDIS 5 MG ORALLY DIS. TAB PO PRN (17:36)
[2023-09-11] MEDS: WARFARIN SOD 4 MG TAB PO SCH (17:40)
[2023-09-11] MEDS: OLANZapine 10 MG/2.1 ML SDV IM ONE (17:42)
[2023-09-11] MEDS: HALOPERIDOL LACTATE 5 MG/ML 1 ML VIAL IM STA (19:16)
[2023-09-11] MEDS: SODIUM ZIRCONIUM CYCLOSILICATE 10 GM PACKET PO SCH (19:26)
[2023-09-12 08:09] LABS: BUN Creatinine Ratio 22.2 (10-20); Calcium 9.1 mg/dl (8.6-10.3); Creatinine Clr Calc Pharmacy 32.8 ml/min; Est GFR (African American) 45.1 ml/min; Est GFR (Non-African American) 38.9 ml/min; Potassium 4.4 mmol/L (3.5-5.1)
[2023-09-12 08:16] LABS: INR 1.6 (0.9-1.1); Prothrombin Time 17.3 Seconds (9.0-12.0)
--- NOTE | 2023-09-12 08:27 | Hospitalist Progress Note ---
Date of Service September 12, 2023 Assessment & Plan (1) Thrombocytopenia: Plan: 78 yo male with PMHx of HFpEF, Cirrhosis, anxiety, DM2, prostate cancer s/p Rezum 12/05/2022 and radiation with recurrent hematuria, failure to thrive who presented with complaints of poor oral intake and associated post-prandial nausea and vomiting. Failure to thrive in adult -Again refusing to take PO; represents an increase in his delirium on dementia -Continue regular diet with supplements as patient desires -Okay for discharge to rehab -Progressive clinical decline since his discharge from [facility] on 08/12/23 - likely multifactorial including his known cirrhosis, anemia, poor oral intake, post prandial N/V, and recurrent UTI's -Head CT and Brain MRI unremarkable -No longer with NG tube, pt removed himself; family does not want PEG tube -Cont. daily thiamine. -Speech consult: supervised meals, thin liquids, carb consistent diet, mouth care -PT/OT: recommend rehab Nausea & vomiting -Improved, tolerating diet with stomach regimen as outlined below -Patient has been experiencing post-prandial nausea and vomiting over the past month. He states that he gets full easily and denies pain prior to or after vomiting. -CT A/P without obvious explanation -cont. Protonix, Pepcid, Carafate, zofran - continue these on discharge -Upscale Security Officer following -GI consulted: recommend management as above and advised Reglan trial prior to meals -May consider barium swallow to further assess for gastroparesis given h/o diabetes, however pt unlikely to tolerate -FCI, refractory gastropareses would require PEG tube which family would not want. S/P AVR -Elevated on admission. s/p vit K. Monitoring INR titrate warfain as needed. -Likely a combination of his poor nutritional status and known cirrhosis -goal is 2.5-3.5 with his prosthetic aortic valve VINICIUS (acute kidney injury) -Baseline ~1.7, Cr elevated - -cont. lasix 40mg PO qAM on discharge -Avoid nephrotoxic agents Urinary tract infection -initial UA appeared infectious. Culture unclear. Abx completed. Pleural effusion -BL pleural effusions appear slightly more progressed than last admission - likely 2/2 cirrhosis and CHF - diuresing -Pulmonology following Thrombocytopenia -Noted to be 117 on admission, stable -Likely 2/2 cirrhosis Cirrhosis -Does not appear to be encephalopathic on exam, LFT's are stable -Has appointment with [facility] Hepatology next month -Avoid nephrotoxic agents, monitor volume status closely Diabetes -Monitor BSG q6h -hypoglycemic protocol in place - has had low BSG 2/2 poor oral intake -Nutrition following Hypothyroidism -Continue levothyroxine DVT ppx: Warfarin FEN/GI: DM2 Code Status: Full Dispo: med tele (2) Hypothyroidism: (3) Failure to thrive in adult: (4) Acute alteration in mental status: (5) Pleural effusion: (6) Urinary tract infection: (7) Acute dehydration: (8) Generalized weakness: (9) Anemia: (10) Cirrhosis: (11) Acute UTI (urinary tract infection): (12) CHF (congestive heart failure): (13) VINICIUS (acute kidney injury): Admission and Anticipated Discharge Date Admission Date: August 31, 2023 Physical Exam Physical Exam: Constitutional: chronically ill appearing, no acute distress HEENT: NCAT, no conjunctival injection CV: regular rhythm, +systolic murmur, extremities well-perfused, no LE edema Resp: CTABL, no wheezes/rales/rhonchi appreciated, no increased work of breathing GI: soft, nondistended, nontender, BS normoactive MSK: no gross deformities appreciated Skin: warm, dry, no rash appreciated Neuro: alert, oriented, no focal neurologic deficit appreciated Results & Data Results & Data Vital Signs (Past 12 Hours) Vital Signs Pulse 09/11/23 23:15 70 Laboratory Results 09/12/23 09/11/23 09/11/23 Range/Units 07:23 20:11 17:15 PT 17.3 H (9.0-12.0) Seconds INR 1.6 H (0.9-1.1) Sodium 140 (136-145) mmol/L Potassium 4.4 D (3.5-5.1) mmol/L Chloride 109 H (98-107) mmol/L Carbon Dioxide 26 (21-32) mmol/L Anion Gap 5 (3-11) BUN 37 H (6-23) mg/dl Creatinine 1.67 H D (0.6-1.4) mg/dl Est Cr Clr Drug Dosing 32.8 ml/min Est GFR ( Amer) 45.1 ml/min Est GFR (Non-Af Amer) 38.9 ml/min BUN/Creatinine Ratio 22.2 H (10-20) Glucose 67 L (70-99(Fasting)) mg/dl POC Glucose 89 79 (70-99) mg/dl Calcium 9.1 (8.6-10.3) mg/dl Phosphorus 3.0 (2.5-4.9) mg/dl Magnesium 2.0 (1.7-2.4) mg/dl Total Bilirubin (0.2-1.0) mg/dl AST (13-39) U/L ALT (7-52) U/L Alkaline Phosphatase (34-104) U/L Total Protein (6.0-8.3) gm/dl Albumin (3.4-5.0) gm/dl Globulin (2.5-4.0) gm/dl Albumin/Globulin Ratio (0.9-2) 09/11/23 09/11/23 09/11/23 Range/Units 12:17 09:21 05:45 PT (9.0-12.0) Seconds INR (0.9-1.1) Sodium 142 (136-145) mmol/L Potassium 5.6 H (3.5-5.1) mmol/L Chloride 109 H (98-107) mmol/L Carbon Dioxide 27 (21-32) mmol/L Anion Gap 6 (3-11) BUN 38 H (6-23) mg/dl Creatinine 1.99 H (0.6-1.4) mg/dl Est Cr Clr Drug Dosing 29.2 ml/min Est GFR ( Amer) 36.5 ml/min Est GFR (Non-Af Amer) 31.5 ml/min BUN/Creatinine Ratio 19.1 (10-20) Glucose 69 L (70-99(Fasting)) mg/dl POC Glucose 80 103 H (70-99) mg/dl Calcium 9.3 (8.6-10.3) mg/dl Phosphorus (2.5-4.9) mg/dl Magnesium (1.7-2.4) mg/dl Total Bilirubin 0.7 (0.2-1.0) mg/dl AST 189 H (13-39) U/L ALT 46 (7-52) U/L Alkaline Phosphatase 56 (34-104) U/L Total Protein 7.4 (6.0-8.3) gm/dl Albumin 3.5 (3.4-5.0) gm/dl Globulin 3.9 (2.5-4.0) gm/dl Albumin/Globulin Ratio 0.9 (0.9-2) (6) Urinary tract infection Hematuria presence: with hematuria Urinary tract infection type: site unspecified Qualified Code(s): N39.0 - Urinary tract infection, site not specified; R31.9 - Hematuria, unspecified (9) Anemia Anemia type: unspecified type Qualified Code(s): D64.9 - Anemia, unspecified
--- NOTE | 2023-09-12 10:45 | Electrocardiogram Report ---
Test Reason : Blood Pressure : / mmHG Vent. Rate : 071 BPM Atrial Rate : 357 BPM P-R Int : 000 ms QRS Dur : 100 ms QT Int : 434 ms P-R-T Axes : 000 006 050 degrees QTc Int : 471 ms Sinus rhythm Possible Old Anterior infarct (cited on or before 10-AUG-2023) Abnormal ECG When compared with ECG of 31-AUG-2023 14:43, T wave inversion now evident in Lateral leads ST depression in Lateral leads Confirmed by Flex Castañeda ([id number] on 09/12/2023 10:45:30 AM Referred By: REFERRED SELF Confirmed By:Flex Castañeda
--- NOTE | 2023-09-12 15:30 | Discharge Summary ---
Date of Service September 12, 2023 Admission HPI Per Admitting Provider Maicol is a 78-year-old male with a past medical history of HFpEF, Cirrhosis (diagnosed last admission), anxiety, DM 2, prostate cancer s/p Rezum 12/05/2022 and radiation with recurrent hematuria, failure to thrive who presented to the [facility] ED on 08/31/23 with complaints of poor oral intake over the past 5 days with associated post-prandial nausea and vomiting. He remained stable in the ED. Labs were significant for worsening anemia with RBC of 3.06, Hgb of 8.5, HCT of 29, MCHC of 29, platelets of 117, lymphocyte count of 0.48, INR of 7.0, VBG pH of 7.31 with pCO2 and pO2 WNL, Cr of 2.20 (baseline is near 1.7), BUN of 52, AST of 128, CRP of 2.37, UA consistent with UTI, and Covid19/Influenza/RSV negative. CT head/brain wo con was negative for acute findings. CXR was read as "No significant change in the pulmonary edema, bilateral pleural effusions, and bibasilar densities.". CT of the abd/pelvis wo con was read as '1. Mild rectal wall thickening, unchanged. 2. The liver is enlarged and shows morphologic domonique nges of cirrhosis, unchanged. 3. Splenomegaly and a small to moderate volume of abdominopelvic ascites indicate portal hypertension. This is similar to the prior study. 4. Moderate pleural effusions with dependent consolidation, which likely represents atelectasis. This is similar to the prior study. 5. Cardiomegaly. 6. There are punctate bilateral nonobstructing renal calculi. No hydronephrosis. 7. Mild bladder wall thickening has improved.". Prior to admission the patient was given 500 mL NSS and 2gm Ceftriaxone. At the time of the exam the patient was sitting up in bed, sleeping comfortab ly, with his sitting bedside. The majority of the history was obtained from the patient's due to his severe hearing loss and fatigue. She states that the patient was doing well for about a week after his discharge from [facility] on 08/12/23. However, over the past 2 weeks the patient been experiencing progressive post-prandial nausea/vomiting, early satiety, and progressive generalized weakness. Over the past week his recurrent nausea and vomiting have been after almost every meal. When asked, the patient states he feels as though he is getting full quickly and has very little appetite. He denies pain associated with eating. His states that he was started on the HS Remeron as appetite stimulant but it has not been helping. She states that their daughter gave the patient a double dose of Remeron last night. His states that he his lasix and metformin have been on hold since his last admission. They have an upcoming appointment with a Motion Picture Critic in the [facility] next month for his recent cirrhosis diagnosis. He does not have a hx of heavy alcohol use. When asked, his states that he was started on 200 mg Amiodarone approximately 3 years ago, after his Aortic Valve replacement. His dose was reduced to 100 mg approximately 6 months ago. His and daughter are concerned about his nutritional status and want to discuss possible feeding tube if necessary. The patient is a full code and his /daughter would make medical decisions for him if he cannot make them himself. Please refer to Dr. Delgado's attestation for any changes to the treatment plan Principal Diagnosis Failure to Thrive Discharge Exam Constitutional: in no acute distress, pleasant. Alert and talkative this morning. Vitals as above. HEENT: No scleral injection or discharge.Moist mucous membranes. Neck: Supple without lymphadenopathy. Trachea midline. Lungs: Clear to auscultation bilaterally with good effort. No wheezes/rales/rhonchi. Cardiac: RRR. No murmurs. No lower extremity edema. 2+ distal peripheral pulses. Abdomen: Bowel sounds present. Soft, nontender, and nondistended.No guarding. MSK: No cyanosis or clubbing. Skin: No abnormal rashes, warm, dry. Neurologic: no focal deficits Discharge Data Allergies Allergy/AdvReac Type Severity Reaction Status Date / Time plasma protein fraction Allergy Severe FROZEN Verified 09/01/23 16:36 PLASMA-- DEVELOPED HIVES Consultations 08/31/23 16:11 ED Decision to Admit Stat 08/31/23 17:44 Consult Pulmonology Routine 09/08/23 01:00 Consult Gastroenterology Routine Ordered Studies Laboratory Results WBC 2.93 K/ul (4.8-10.8) L 09/07/23 06:45 RBC 3.17 M/uL (4.70-6.10) L 09/07/23 06:45 Hgb 8.9 g/dl (14.0-18.0) L 09/07/23 06:45 Hct 29.0 % (42.0-52.0) L 09/07/23 06:45 MCV 91.5 fL (80.0-100.0) 09/07/23 06:45 MCH 28.1 pg (25.0-34.0) 09/07/23 06:45 MCHC 30.7 g/dL (32.0-36.0) L 09/07/23 06:45 RDW Std Deviation 66.7 fL (36.4-46.3) H 09/07/23 06:45 RDW Coeff of Nick 19.6 % (11.5-14.5) H 09/07/23 06:45 Plt Count 119 K/uL (130-400) L 09/07/23 06:45 MPV 10.9 fL (9.4-12.4) 09/07/23 06:45 Immature Gran % (Auto) 0.3 % 09/07/23 06:45 Neut % (Auto) 63.5 % 09/07/23 06:45 Lymph % (Auto) 15.0 % 09/07/23 06:45 Gilchrist % (Auto) 10.6 % 09/07/23 06:45 Eos % (Auto) 9.6 % 09/07/23 06:45 Baso % (Auto) 1.0 % 09/07/23 06:45 Neut # (Auto) 1.86 K/uL (1.40-6.50) 09/07/23 06:45 Lymph # (Auto) 0.44 K/uL (1.20-3.40) L 09/07/23 06:45 Gilchrist # (Auto) 0.31 K/uL (0.11-0.59) 09/07/23 06:45 Eos # (Auto) 0.28 K/uL (0.00-0.50) 09/07/23 06:45 Baso # (Auto) 0.03 K/uL (0.00-0.20) 09/07/23 06:45 Immature Gran # (Auto) 0.01 K/uL (0.01-0.20) 09/07/23 06:45 Platelet Estimate Decreased (Normal) L 09/05/23 04:58 RBC Morphology Unremarkable 09/05/23 04:58 Polychromasia 1+ 09/02/23 05:34 Hypochromasia Present 09/03/23 03:55 Anisocytosis Present 09/03/23 03:55 Tear Drop Cells 1+ 09/03/23 03:55 PT 17.3 Seconds (9.0-12.0) H 09/12/23 07:23 INR 1.6 (0.9-1.1) H 09/12/23 07:23 APTT 58 Seconds (21-31) H 08/31/23 13:45 PTT Ratio 2.1 08/31/23 13:45 VBG pH 7.31 (7.36-7.41) L 08/31/23 14:39 VBG pCO2 49 mmHg (38-50) 08/31/23 14:39 VBG pO2 28 mmHg 08/31/23 14:39 VBG HCO3 25 mmol/L 08/31/23 14:39 VBG O2 Saturation < 60.0 % 08/31/23 14:39 VBG Base Excess -2.1 mEq/L 08/31/23 14:39 Sodium 140 mmol/L (136-145) 09/12/23 07:23 Potassium 4.4 mmol/L (3.5-5.1) D 09/12/23 07:23 Chloride 109 mmol/L (98-107) H 09/12/23 07:23 Carbon Dioxide 26 mmol/L (21-32) 09/12/23 07:23 Anion Gap 5 (3-11) 09/12/23 07:23 BUN 37 mg/dl (6-23) H 09/12/23 07:23 Creatinine 1.67 mg/dl (0.6-1.4) H D 09/12/23 07:23 Est Cr Clr Drug Dosing 32.8 ml/min 09/12/23 07:23 Est GFR ( Amer) 45.1 ml/min 09/12/23 07:23 Est GFR (Non-Af Amer) 38.9 ml/min 09/12/23 07:23 BUN/Creatinine Ratio 22.2 (10-20) H 09/12/23 07:23 Glucose 67 mg/dl (70-99(Fasting)) L 09/12/23 07:23 POC Glucose 93 mg/dl (70-99) 09/12/23 12:14 Calcium 9.1 mg/dl (8.6-10.3) 09/12/23 07:23 Phosphorus 3.0 mg/dl (2.5-4.9) 09/12/23 07:23 Magnesium 2.0 mg/dl (1.7-2.4) 09/12/23 07:23 Total Bilirubin 0.7 mg/dl (0.2-1.0) 09/11/23 05:45 AST 189 U/L (13-39) H 09/11/23 05:45 ALT 46 U/L (7-52) 09/11/23 05:45 Alkaline Phosphatase 56 U/L (34-104) 09/11/23 05:45 Ammonia 46.0 umol/L (18-72) 09/11/23 05:45 Total Creatine Kinase 41 U/L (30-223) 08/31/23 13:45 Troponin I High Sens 9.9 pg/ml (0-20) 08/31/23 13:45 C-Reactive Protein 2.37 mg/dl (0-0.5) H 08/31/23 13:45 B-Natriuretic Peptide 891 pg/ml (0-100) H 08/31/23 13:45 Total Protein 7.4 gm/dl (6.0-8.3) 09/11/23 05:45 Albumin 3.5 gm/dl (3.4-5.0) 09/11/23 05:45 Globulin 3.9 gm/dl (2.5-4.0) 09/11/23 05:45 Albumin/Globulin Ratio 0.9 (0.9-2) 09/11/23 05:45 Vitamin B12 1118 pg/ml (180-914) H 09/08/23 06:06 Procalcitonin 0.18 ng/ml (0-0.5) 08/31/23 13:45 TSH 5.046 uIu/ml (0.300-4.500) H 08/31/23 13:45 Free T4 1.30 ng/dl (0.61-1.60) 08/31/23 13:45 Urine Color Dark Yellow 08/31/23 Unknown Urine Appearance Turbid (Clear) A 08/31/23 Unknown Urine pH 5.0 (4.5-7.5) 08/31/23 Unknown Ur Specific [place] 1.021 (1.000-1.030) 08/31/23 Unknown Urine Protein 1+ (Negative) H 08/31/23 Unknown Urine Glucose (UA) Negative (Negative) 08/31/23 Unknown Urine Ketones Trace (Negative) H 08/31/23 Unknown Urine Blood 2+ (Negative) H 08/31/23 Unknown Urine Nitrite Negative (Negative) 08/31/23 Unknown Urine Bilirubin Negative (Negative) 08/31/23 Unknown Urine Urobilinogen Negative (Negative) 08/31/23 Unknown Ur Leukocyte Esterase 3+ (Negative) H 08/31/23 Unknown Urine WBC (Auto) >30 /hpf (0-5) H 08/31/23 Unknown Urine RBC (Auto) 5-10 /hpf (0-4) H 08/31/23 Unknown U Hyaline Cast (Auto) 5-10 /lpf (0-5) H 08/31/23 Unknown U Epithel Cells (Auto) 5-10 /lpf (0-5) H 08/31/23 Unknown Urine Bacteria (Auto) 3+ (Negative) H 08/31/23 Unknown Urine Yeast Budding (None Prsent) A 08/31/23 Unknown SARS-CoV-2 (PCR) NEGATIVE (Negative) 08/31/23 15:00 Influenza Type A (PCR) Negative (Neg) 08/31/23 15:00 Influenza Type B (PCR) Negative (Neg) 08/31/23 15:00 RSV (RT-PCR) Negative (Neg) 08/31/23 15:00 Impressions Abdomen/Pelvis CT 08/31/23 13:[address] WITHOUT CONTRAST CT DOSE: 2680.82 mGy.cm HISTORY: lower pain TECHNIQUE: Multiaxial CT images of the abdomen and pelvis were performed without contrast. A dose lowering technique was utilized adhering to the principles of ALARA. COMPARISON STUDY: None. FINDINGS: Lung bases: The patient is status post midline sternotomy. The heart is enlarged and without pericardial effusion. The coronary arteries and mitral annulus are densely calcified. There are moderate pleural effusions with dependent consolidation, unchanged. Liver: The unenhanced liver is enlarged an heterogeneous, measuring 21 cm in length. There is nodularity of the hepatic surface contour indicating morphologic changes of cirrhosis. There is no intrahepatic biliary ductal dilatation. Gallbladder: Surgically absent noting clips in the gallbladder fossa. Spleen: The spleen is enlarged measuring 15 cm in length. This remains unchanged. Pancreas: The unenhanced pancreas is grossly unremarkable. Adrenal glands: Unremarkable. Kidneys: The unenhanced kidneys are normal in size and without hydronephrosis. There are punctate bilateral nonobstructing renal calculi. No ureteral stone is seen. A peripherally calcified cyst arising from the right lower pole measures up to 2.3 cm. A 1.6 cm cyst arises from the left lower pole. Abdominal vasculature: The abdominal aorta is normal in course and caliber noting moderate to advanced atherosclerotic calcification. Bowel: There are scattered colonic diverticula without CT evidence of acute diverticulitis. No bowel obstruction is seen. The appendix is well-visualized and normal. Mild rectal wall thickening, unchanged. Peritoneum: No intraperitoneal free air is identified. There is a [id number] volume of abdominopelvic ascites, unchanged. There is a fat- containing umbilical hernia. Diffuse mesenteric edema again noted. Lymphadenopathy: None. Pelvic viscera: Mild bladder wall thickening is improved There is a fat and fluid-containing left inguinal hernia. Skeletal structures: The skeletal structures are heterogeneously osteopenic.. No lytic or blastic lesions are seen. Moderate body wall edema, unchanged. IMPRESSION: 1. Mild rectal wall thickening, unchanged. 2. The liver is enlarged and shows morphologic changes of cirrhosis, unchanged. 3. Splenomegaly and a small to moderate volume of abdominopelvic ascites indicate portal hypertension. This is similar to the prior study. 4. Moderate pleural effusions with dependent consolidation, which likely represents atelectasis. This is similar to the prior study. 5. Cardiomegaly. 6. There are punctate bilateral nonobstructing renal calculi. No hydronephrosis. 7. Mild bladder wall thickening has improved. ACT 112: Negative or not required by law. Electronically signed by: Ab Meyer M.D. 08/31/2023 3:[address] 08/31/23 13:[address] DOSE: HISTORY: Altered mental status TECHNIQUE: Multiaxial CT images of the head were performed without the use of intravenous contrast. Automated exposure control was utilized for this study. A dose lowering technique was utilized adhering to the principles of ALARA. Comparison: Head CT 08/08/2023. Findings: The paranasal sinuses and mastoid air cells are clear. The calvarium and skull base are intact. There is no mass, hematoma, midline shift, acute infarct. White matter hypodensity is nonspecific but suggestive of microvascular ischemic change. The ventricles and sulci demonstrate mild age-related involutional changes. 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 Old punctate lacunar infarcts within the right thalamus. Impression: No significant change compared to the prior study. No acute intracranial abnormality. ACT 112: Negative or not required by law. Electronically signed by: Ab Meyer M.D. 08/31/2023 2:20 PM Brain MRI 09/04/23 11:02 Exam(s): MRI HEAD Without Contrast EXAM: MR Head Without Intravenous Contrast CLINICAL HISTORY: Reason for exam: altered mental status. TECHNIQUE: Magnetic resonance images of the head/brain without intravenous contrast in multiple planes. COMPARISON: No relevant prior studies available. FINDINGS: No acute territorial infarct. No acute intracranial hemorrhage. No midline shift or mass effect. The territorial whipple-white matter differentiation is maintained throughout. Age-related cerebral volume loss. Periventricular and subcortical white matter T2 signal intensity, consistent with chronic microangiopathy. The visualized orbits appear grossly unremarkable. The calvarium is intact. The visualized paranasal sinuses and mastoid air cells are grossly clear. IMPRESSION: No acute territorial infarct. No acute intracranial hemorrhage. No midline shift or mass effect. Electronically signed by: Joel Pastrana MD 09/04/23 21:03 PM KUB X-Ray 09/04/23 17:34 KUB CLINICAL HISTORY: Enteric tube placement. FINDINGS: An AP, portable, upright radiograph of the lower chest and upper abdomen is compared to study dated 07/26/2023 and correlated with abdominal CT dated 08/31/2023. An enteric tube has been placed. The tip projects below the diaphragm over the the distal stomach or proximal duodenum. There is no radiographic evidence of high-grade bowel obstruction. No intraperitoneal free air is seen below the diaphragm. Surgical clips project over the right abdomen. The patient is status post midline sternotomy. The heart is enlarged with evidence of congestive failure. There are layering pleural effusions with dependent consolidation. IMPRESSION: 1. An enteric tube has been placed as above. 2. There is no radiographic evidence of high-grade bowel obstruction. 3. Cardiomegaly with evidence of congestive failure and layering pleural effusions Electronically signed by: Fuad Almaraz M.D. 09/04/2023 7:15 PM Chest X-Ray 09/05/23 14:21 SINGLE VIEW CHEST CLINICAL HISTORY: Enteric tube placement. FINDINGS: 2 AP, portable, upright chest radiographs are compared to study dated 09/02/2023. Surgical clips project over the right apex. An enteric tube has been placed. The tip projects below the diaphragm over the distal stomach or duodenum. The patient is status post midline sternotomy. The heart is enlarged noting atherosclerotic calcification of the thoracic. There is pulmonary vascular congestion with evidence of interstitial edema. There are layering pleural effusions with dependent consolidation. No pneumothorax is seen. The skeletal structures are osteopenic. The bony thorax is grossly intact. Degenerative change is noted in the shoulders. Cholecystectomy clips are noted. IMPRESSION: 1. An enteric tube has been placed as above. 2. Cardiomegaly with evidence of congestive failure and pulmonary edema. 3. Layering pleural effusions with dependent consolidation ACT 112: Negative or not required by law. Electronically signed by: Fuad Almaraz M.D. 09/05/2023 2:46 PM Hospital Course (1) Thrombocytopenia: 78 yo male with PMHx of HFpEF, Cirrhosis, anxiety, DM2, prostate cancer s/p Rezum 12/05/2022 and radiation with recurrent hematuria, failure to thrive who presented with complaints of poor oral intake and associated post-prandial nausea and vomiting. #Failure to Thrive -Progressive clinical decline since his discharge from [facility] on 08/12/23 - likely multifactorial including his known dementia, cirrhosis, anemia, poor oral intake, post prandial N/V, and recurrent UTI's -Head CT and Brain MRI unremarkable -Trialed NG tube and initially tolerated 40ml/hr however developed N/V with oral intake in addition to this. He then removed the tube one night in the setting of delirium - family does not want PEG tube - would not recommend another trial. -Speech consult: supervised meals, thin liquids, carb consistent diet, mouth care -towards the end of his hospitalization, his oral intake did begin to improve without post prandial symptoms. -PT/OT: recommend rehab - however, with ongoing waxing/waning delirium patient will be difficult to place. He did fairly well during his last evaluation and does have help at home especially with his son at home for the next few months. Decision was made to continue with home health instead. #Postprandial Nausea & Vomiting -Patient has been experiencing post-prandial nausea and vomiting over the past month. He states that he gets full easily and denies pain prior to or after vomiting. -CT A/P without obvious explanation -Production Control Expert following -GI consulted - recommended medical management. -cont. Protonix 40mg bid, Pepcid 20mg bid, Carafate 1g qid, -may consider barium swallow to further assess for gastroparesis given h/o diabetes, however pt unlikely to tolerate -termite helper, refractory gastropareses would require PEG tube which family would not want. -Improved, tolerated diet with stomach regimen as outlined #Hospital Delirium -in setting of dementia - agitated delirium appeared at baseline on discharge but did have waxing/waning symptoms over the past 24-48 hours. -received doses of zyprexa and haldol. -cont. home Abilify -should do better at home in regards to his delirium in a comfortable environment -rx zyprexa odt for aggressive/combative acute delirium at home #S/P AVR -Elevated on admission. s/p vit K. Monitoring INR titrate warfain as needed. -Likely skewed in setting of poor nutritional status and known cirrhosis -goal is 2.5-3.5 with his prosthetic aortic valve -INR on discharge 1.6. Will give 4mg warfarin prior to discharge. Patient should check INR daily and titrate as needed until following up with PCP. #VINICIUS (acute kidney injury) on CKD -Baseline ~1.7. Near baseline on discharge. #Afib -cont. warfarin, amiodarone -metoprolol dose decreased to 12.5mgs succinate due to low BP readings. #Diabetes -several times found to be hypoglycemic in the hospital 2/2 poor oral intake -Nutrition following -discontinued home metformin on discharge as this could be contributing to GI upset. Recheck a1c outpatient. #Hypothyroidism -Continue levothyroxine #Urinary tract infection -initial UA appeared infectious. Culture unclear. Abx completed. #Pleural effusion -BL pleural effusions appear slightly more progressed than last admission - likely 2/2 cirrhosis and CHF -cont. lasix 40mg PO qAM #Thrombocytopenia -Noted to be 117 on admission, stable -Likely 2/2 cirrhosis #Cirrhosis -LFT's are stable. No concern of hepatic encephalopathy. -Has appointment with [facility] next month #Goals of care Attempted goals of care discussion with family. Family understanding of the overall worsening prognosis with cirrhosis, dementia, FTT, medication complexities and side effects --- to further discuss at the primary care visit (2) Hypothyroidism: (3) Failure to thrive in adult: (4) Acute alteration in mental status: (5) Pleural effusion: (6) Urinary tract infection: (7) Acute dehydration: (8) Generalized weakness: (9) Anemia: (10) Cirrhosis: (11) CHF (congestive heart failure): (12) VINICIUS (acute kidney injury): Total Time Total Time Spent Total Time Spent (In Minutes): 30 Discharge Plan Discharge Items Patient Disposition: Home - Home Health Services Reason For Visit: POST PRANDIAL NAUSEA/VOMITING, FAILURE TO THRIVE Discharge Diagnosis: Failure to thrive Activity: Per Instructions section Non-emergency contact: Primary Care Provider Call non-emergency contact if: you have any medication questions Follow-up/Referrals: Sho Bowman DO [Primary Care Provider] - Diet: Heart Healthy Liquid Consistency: [place] thick Addtl Attending Provider Instructions: You were admitted to the hospital for failure to thrive secondary to poor oral intake. Prior to admission it seems you are having difficulty keeping down her food or having postprandial nausea and vomiting. While hospitalized the provided you with additional medications as a trial to see if they would help with your oral intake. Towards the end of your hospitalization you did seem to start eating more without any postprandial nausea and vomiting. For this reason we will continue on the medications used in the hospital when you are at home with the hopes of continued improvement of your diet. Medications Changes: -Increase pantoprazole to 40mg twice a day -Increase furosemide to 40mg in the morning New Medications: -Famotidine 20mg twice a day -Sucralfate 1g 4 times a day -Zofran every 4 hours as needed for nausea/vomiting -Olanzapine 5mg one time dose as needed for acute aggression/combative during episodes of delirium Hold medications: -hold metformin as this could contribute to GI upset Discontinued medications: -Continue morning dose metoprolol 25mg. Discontinue evening dose of metoprolol 50mg as blood pressure and heart rate remained normal while hospitalized. Monitor INR very closely at home as you were below goal range prior to discharge. Goal at home is 2.5-3.5. Would check daily and titrate warfarin accordingly. Home Health services has been set up by our case management team to assist with care at home. This will include physical and occupational therapy. Please follow up with your PCP for further instruction. Think about goals of care in the long run and discuss CODE STATUS. Can further discuss creating an advanced directive or POLST with PCP. Pending Studies at Discharge: No Stand-Alone Forms: [facility] C[facility] Medications and DC Order Prescriptions: New olanzapine 5 mg Tablet,Disintegrating 5 mg PO DAILY PRN (Reason: agitation) Qty: 10 0RF furosemide 40 mg Tablet 40 mg PO QAM Qty: 30 0RF sucralfate 100 mg/mL Suspension 1 g PO QID Qty: 120 0RF ondansetron 4 mg Tablet,Disintegrating 4 mg PO Q4H PRN (Reason: Nausea And Vomiting) Qty: 30 0RF famotidine 20 mg tablet 20 mg PO BID Qty: 60 0RF Continued amiodarone 200 mg tablet 100 mg PO QAM cholecalciferol (vitamin D3) 50 mcg (2,000 unit) capsule 50 mcg PO .@1999 clonazepam 0.5 mg tablet 0.5 mg PO DAILY PRN (Reason: Anxiety) Rx Instructions: unable to verify fenofibric acid (choline) 135 mg capsule,delayed release(DR/EC) 135 mg PO QAM hydrocortisone acetate 1 % cream 1 applic topical BID PRN (Reason: Skin Irritation) Rx Instructions: unable to verify aripiprazole [Abilify] 2 mg tablet 2 mg PO QAM simethicone 125 mg capsule 125 mg PO DAILY PRN (Reason: gas pain) Rx Instructions: unable to verify sertraline 100 mg Tablet 100 mg PO .@1999 metoprolol tartrate 25 mg Tablet 25 mg PO QAM tamsulosin 0.4 mg capsule 0.4 mg PO .@1999 ferrous fumarate-vitamin C 66-125 mg Tablet,Chewable 1 tab PO 3XWK Qty: 0 Rx Instructions: as directed @ 5PM . Mon/Wed/Fri warfarin 2 mg tablet 3 mg PO DAILY Hold Instructions: Hold until follow up INR in 2 days. Rx Instructions: 3 mg daily. Pt test INR at home every Friday. 5:00pm cyanocobalamin (vitamin B-12) [Vitamin B-12] 1,000 mcg Tablet 1,000 mcg PO DAILY levothyroxine [Synthroid] 75 mcg tablet 75 mcg PO .NOON mirtazapine 7.5 mg tablet 15 mg PO HS Rx Instructions: Per spouse, it is written for 7.5mg at bedtime but they increased it last night because it wasn't working. Changed pantoprazole 40 mg tablet,delayed release (DR/EC) 40 mg PO BID Qty: 60 0RF Held metformin 1,000 mg tablet 0 mg PO BID Hold Instructions: Resume on 10/04/23. discuss with PCP Rx Instructions: Currently on hold as of 08/21/23 Discontinued furosemide 20 mg tablet 0 mg PO QAM Hold Instructions: Hold until follow up with PCP Rx Instructions: Currently on hold since 08/08/23 metoprolol tartrate 25 mg tablet 50 mg PO .@1999 Discharge Orders: Discharge Order (Routine); Ordered 09/12/23 Ordered By: Aristeo Jacob Admission Data Admit Date/Time: 08/31/23 16:53 Attending Provider: Gricelda Denise Admit Provider: Nathaniel Delgado Primary Care Provider: Sho Bowman Other Providers: Nathaniel Delgado; Caesar Madera; Moshe Ward; Vicki Leavitt Other Interventions: Discharge Summary Assessment (RN) Last Done: 09/12/23 16:17 Supervising Physician Co-Signing Physician Notes Attending Physician Supervision Note: I independently interviewed and examined the patient and verified the saenz history and physical, reviewed labs and image studies and agree with findings and care plan noted above. got agitated again last night. received zyprexa and haldol. slept in am but was alert later in the day. Delirium - hospital induced with underlying dementia. home on prn zyprexa. reorient, supportive care. Failure to thrive/ severe, protein calorie malnutrition - Last admission related to poor PO intake. Concern of mild cognitive deficit in setting of fluid ov erload, cirrhosis and amiodarone side effect contributing. Had dietary consult last admit but after discharge developed post prandial nausea and early satiety. See below. Metformin d/nell as well. Postprandial nausea/early satiety amiodarone side effect/third spacing/gut edema/gastroparesis. No improvement with acid suppression. NGT was placed for feeds - had several bouts of emesis and removed his NGT 09/04 into 09/05. -Received lasix - resulted in possibly improved fluid overload. -improved PO intake once alert. -encourage PO intake at home. Acute on chronic diastolic CHF and cirrhosis mediated ascites- continue Lasix. s/p AVR/Coumadin coagulopathyGoal INR 2.5-3.5. INR 1.6. missed warfarin last night. 4mgs warfarin given today. to have INR checked. Initiated goals of care discussion - to further discuss at the primary care visit Resident Activity Tracking Resident Involvement: Resident Care Provided Care Provided: Adult Hospital Medicine
--- NOTE | 2023-09-12 17:36 | Communication Note ---
Date of Service: September 12, 2023 Brief Palliative Med Note Attempted to see pt x2 today and he was asleep/agitated and unable to participate. He is not decisionally intact and there was no family present. Upon later afternoon review, this pt was being discharged. There is no urgent need for IP pall med eval if pt has a same day as consult dc planned, this patient can be seen in OP clinic, please order referral for same if desired. Chart reviewed-15min attempted to see pt -10min NO charge submitted Thank you for allowing us to participate in the ongoing care of this patient. Please don't hesitate to call or page with any additional concerns. Dr. Katarina Jimenes DNP Director, Palliative Care
== END 2023-09-12 16:33 | disposition home health service (06) | DRG 689 ==
LOC: ED 12:41 → 2W 16:53 → SUATTDRO 16:53 → 2W 20:19

== ENCOUNTER 2024-02-28 16:13 | Inpatient (IN) ==
[2024-02-28 16:48] LABS: Basophils # (auto) 0.03 K/uL (0.00-0.20); Basophils % (auto) 0.7 %; Eosinophils # (auto) 0.35 K/uL (0.00-0.50); Eosinophils % (auto) 8.3 %; Hematocrit (blood only) 29.3 % (42.0-52.0); Hemoglobin 9.2 g/dl (14.0-18.0); Immature Granulocytes # (auto) 0.02 K/uL (0.01-0.20); Immature Granulocytes % (auto) 0.5 %; Lymphocytes # (auto) 0.34 K/uL (1.20-3.40); Lymphocytes % (auto) 8.1 %; Mean Corpuscular Hemoglobin 29.6 pg (25.0-34.0); Mean Corpuscular Hgb Conc 31.4 g/dL (32.0-36.0); Mean Corpuscular Volume 94.2 fL (80.0-100.0); Mean Platelet Volume 10.2 fL (9.4-12.4); Monocytes # (auto) 0.44 K/uL (0.11-0.59); Monocytes % (auto) 10.5 %; Neutrophils # (auto) 3.02 K/uL (1.40-6.50); Neutrophils % (auto) 71.9 %; Platelet Count 137 K/uL (130-400); RDW Coefficient of Variation 18.4 % (11.5-14.5); RDW Standard Deviation 62.2 fL (36.4-46.3); Red Blood Count 3.11 M/uL (4.70-6.10)
[2024-02-28 17:01] LABS: INR 2.7 (0.9-1.1); Partial Thromboplastin Ratio 1.6; Partial Thromboplastin Time 42 Seconds (21-31); Prothrombin Time 26.5 Seconds (9.0-12.0)
--- NOTE | 2024-02-28 17:06 | XRay Report ---
SINGLE VIEW CHEST CLINICAL HISTORY: Atypical chest pain. FINDINGS: 2 PA chest radiographs are compared to study dated 09/05/2023. The patient is status post mid line sternotomy. The heart is enlarged but noting atherosclerotic calcification of the thoracic aorta . There is pulmonary vascular congestion with evidence of interstitial edema. There are small pleural effusions with dependent consolidation. No pneumothorax is seen. The skeletal structures are osteope henna. The bony thorax is grossly intact. Surgical clips are seen in the upper abdomen. IMPRESSION: 1. Cardiomegaly with evidence of congestive failure and mild pulmonary edema. Radiographic follow-up to resolution is recommended. 2. Small pleural effusions with dependent consolidation. ACT 112: Negative or not required by law. Electronically signed by: Fuad Almaraz M.D. 02/28/2024 5:04 PM
[2024-02-28 17:09] LABS: Albumin Globulin Ratio 0.9 (0.9-2); Albumin Level 3.7 gm/dl (3.4-5.0); BUN Creatinine Ratio 17.4 (10-20); Bilirubin,Total 0.7 mg/dl (0.2-1.0); Creatinine Clr Calc Pharmacy 20.4 ml/min; Est GFR (African American) 22.2 ml/min; Est GFR (Non-African American) 19.2 ml/min; Globulin 4.1 gm/dl (2.5-4.0); Potassium 4.9 mmol/L (3.5-5.1); Total Protein 7.8 gm/dl (6.0-8.3)
--- NOTE | 2024-02-28 17:49 | Emergency Department Note ---
Impression & Plan Acute UTI, VINICIUS (acute kidney injury), Sepsis, Elevated troponin, Pulmonary edema ED Provider Note Provider: Khalif Salazar MD DATE OF SERVICE: 02/28/2024 CHIEF COMPLAINT: Weak, UTI HISTORY OF PRESENT ILLNESS: Patient is a 79-year-old gentleman past medical history of heart failure, prostatic aortic valve cirrhosis, anxiety, type 2 diabetes, prostate cancer, LUTS presenting here today brought by family from [facility]. Patient evidently went there on with lethargy and hypotension. Had procedure on Friday with Dr. Soto for urethral stricture with cystoscopy and balloon dilation. Reviewed records from the outside facility. Patient appears to have been hypotensive and septic from a urinary infection started on ceftriaxone evening. Was awaiting transfer to [facility] due to acute renal failure as well as elevated troponin. Patient without evidence of chest pain. No beds available at [place] and thus he was at the [place] [facility] waiting. Family came frustrated today and brought him here for further evaluation. They report that he has been draining some urine from his Duran and did get a unit of blood while at the outside facility. They state he is more awake and alert now. Denies any pain to me. Patient with some baseline memory issues by report. Evidently has had some issues with fluid accumulation in the lungs and pleural effusions. No trauma reported. PAST MEDICAL HISTORY: As noted above MEDICATIONS: Reviewed medications SOCIAL HISTORY: PHYSICAL EXAM: GENERAL: alert and oriented in no acute distress on stretcher Head: normocephalic and atraumatic EYES: No injection, discharge or icterus. EOMI. NECK: Trachea midline. Supple. ENT: Mucous membranes pink and moist. LUNGS: Airway patent. No retractions. Breath sounds clear HEART: Regular rate and rhythm. No chest wall tenderness ABDOMEN: Soft and non-tender, without guarding or rebound. Maybe some slight distention. Duran catheter in place and draining some dark yellow/brownish urine SKIN: Acyanotic, warm, dry, without rashes EXTREMITIES: Without swelling, tenderness or deformity NEUROLOGICAL: No focal deficits. No aphasia. No facial droop or slurred speech. EK bpm sinus rhythm first-degree AV block. No PVC. No acute ST segment depression with a little bit of questionable anterior slight ST elevation. CONTINUOUS CARDIAC MONITORING: was ordered and showed a heart rate of 70s to 90s bpm in sinus rhythm Patient's laboratory studies and imaging reviewed. Differential includes Infection, dehydration, metabolic abnormality, hypo/hyperglycemia, electrolyte disturbance, anemia, hypoxia, cardiac sources, intracerebral event, toxicologic, neurologic, as well as other pathologies. IMPRESSION/MEDICAL DECISION MAKING: Patient with what appears to have been a urosepsis picture at outside facility. Evidence of acute renal failure from labs but looking at the available blood work creatinine from 3.8 appears to be improving today. Troponin of 5000 down to just under 2300 here. Not having active chest pain. No active chest pain and no distress. In the clinical context I believe believe this more demand related to his renal dysfunction than acute occlusive coronary artery disease/ACS. Did receive more than 3 L of fluid resuscitation to the outside facility but would be careful avoid guard against fluid overload in the setting of his heart failure as well as pleural effusions and would not provide significant additional IV fluid at this time. Not on oxygen at this point. Does not appear in distress. Unclear if he has been on his lactulose recently and ammonia level will be checked but does not appear severely encephalopathic at this point. No believe we need head CT. Head CT imaging at the outside facility and records are noted. Patient anticoagulated with his AVR. Blood work here without otherwise severe electrolyte abnormality or significant LFT abnormalities. Will bring in for continued monitored improvement of his renal function and improvement of his troponin as well as hopefully some slight diuresis when his kidney function is better. Will continue his ceftriaxone a dose given here this evening. Hospitalist was consulted for admission. Contour Path Tape Mill Operator to attempt to obtain urine culture from outside facility. DIAGNOSIS: Acute UTI, VINICIUS, elevated troponin, sepsis DISPOSITION: Hospitalist will evaluate Patient was agreeable with this plan. Past Med/Surg History Problem List (Updated 02/28/24 @ 18:18 by Khalif Salazar M.D.) Pulmonary edema (Acute) Elevated troponin (Acute) Sepsis (Acute) VINICIUS (acute kidney injury) (Acute) Acute UTI (Acute) Urethral stricture Urge incontinence Delirium Volume overload Thrombocytopenia Hypothyroidism Failure to thrive in adult Pleural effusion (Acute) Anemia (Acute) Generalized weakness (Acute) Cirrhosis Diarrhea CHF (congestive heart failure) (Acute) S/P AVR Weakness Gross hematuria Encounter for pre-operative examination Diabetes mellitus, type 2 NIDDM GERD (gastroesophageal reflux disease) Hx of prostatic malignancy Spring 2020 Treated with radiation treatments Hx of aortic aneurysm ascending aortic aneurysm s/p dissection 05/2019 and subsequent repair of aortic root (28mm Gelweave graft) Prostate cancer Urinary retention Medical History Anemia pt's reports ongoing rectal bleeding (GI is aware) since XRT for prostate Ca; pt takes iron supplement; recent iron infusions and procrit injections (02/12/24 and will have another on 02/19/24) Anxiety CHF (congestive heart failure) follows with [facility] Chronic kidney disease Cirrhosis follows with GI Dementia pt had significant confusion during 09/2023 admission [facility]; states that he is 'much better' at home. she also notes increased confusion after General Anesthesia Diabetes type 2, controlled metformin d/c during [facility] admission 2/2 hypoglycemia (pt has been having GI issues and has not been eating normal diet) Failure to thrive in adult admission [facility] 08/31/23-09/12/23. pt's states that he has improved slightly since d/c (he has also since had an admission to [facility] since that time per ; unknown dx) Generalized weakness uses cane to ambulate GERD (gastroesophageal reflux disease) History of COVID-19 x2 ; 10/2022 most recent (pt was asymptomatic); no ongoing sx History of fractured vertebra Cervical fracture 11/18/21- medical management recommended, follows with physical therapy, "full ROM" per patient Hx of aortic aneurysm ascending aortic aneurysm s/p dissection 05/2019 and subsequent repair of aortic root (28mm Gelweave graft) Hypertension meds reduced during 09/2023 [facility] admission 2/2 hypotension Hypothyroidism Nausea & vomiting current sx; following with GI Osteoarthritis Portal hypertension Prostate CA XRT 2020; Rezum 12/05/22 Rectal bleeding pt's reports ongoing rectal bleeding (GI is aware) since XRT for prostate Ca; pt takes iron supplement Suspected sleep apnea unaware Thrombocytopenia Urinary tract infection recurrent; follows with urology Surgical History History of aortic aneurysm repair 05/2021 in [facility] Follows with [facility] History of appendectomy History of cholecystectomy History of colonoscopy History of endoscopy capsule endoscopy History of flexible sigmoidoscopy History of prostate surgery multiple; most recent Rezum 12/05/22: MAC without issue Hx of aortic valve replacement, mechanical 1989 Family History Mother Diabetes Hypertension Father Diabetes Other No family history of adverse response to anesthesia Social History Smoking Status: Never smoker Second Hand Exposure: No; Do You Dip or Chew Tobacco: No; Hx Alcohol Use: No Hx Substance Use: No Preferred Language: Comoran Communication Ability: Effective Slubber Operator Required: No Beliefs That Will Affect Care: None marital status: Current Living Situation: Spouse current occupational status: retired Feels Safe at Home: Yes Assistive Devices: Cane, Glasses and Hearing Aid - Bilateral Allergies Allergies Allergy/AdvReac Type Severity Reaction Status Date / Time plasma protein fraction Allergy Severe FROZEN Verified 02/28/24 18:35 PLASMA-- DEVELOPED HIVES Home Meds Home Medications Medication Instructions Recorded Confirmed amiodarone 200 mg tablet 100 mg PO QAM 10/07/22 02/28/24 cholecalciferol (vitamin D3) 50 50 mcg PO QPM 10/07/22 02/28/24 mcg (2,000 unit) capsule clonazepam 0.5 mg tablet 0.5 mg PO DAILY PRN Anxiety 10/07/22 02/28/24 fenofibric acid (choline) 135 mg 135 mg PO QAM 10/07/22 02/28/24 capsule,delayed release hydrocortisone acetate 1 % topical 1 applic topical BID PRN Skin 10/07/22 02/28/24 cream Irritation aripiprazole 2 mg tablet (Abilify) 2 mg PO QAM 11/14/22 02/28/24 sertraline 100 mg tablet 100 mg PO QPM 11/25/22 02/28/24 tamsulosin 0.4 mg capsule 0.8 mg PO QPM 11/25/22 02/28/24 ferrous fumarate-vitamin C 66 1 tab PO 3XWK ##0 08/08/23 02/28/24 mg-125 mg chewable tablet warfarin 2 mg tablet 3 mg PO DAILY 08/08/23 02/28/24 cyanocobalamin (vitamin B-12) 1,000 mcg PO DAILY 08/31/23 02/28/24 1,000 mcg tablet (Vitamin B-12) levothyroxine 75 mcg tablet 75 mcg PO QAM 08/31/23 02/28/24 (Synthroid) Prevagen 30 mg PO DAILY 01/22/24 02/28/24 Lactobacillus rhamnosus-Bifidobac. 1 cap PO QAM 01/22/24 02/28/24 animalis 3 billion cell capsule ([employer]) lactulose 10 gram/15 mL oral syrup 30 g PO TID 01/22/24 02/28/24 ondansetron 4 mg disintegrating 4 mg PO Q6H PRN Nausea And Vomiting 02/28/24 02/28/24 tablet Previous Rx's Medication Instructions Recorded furosemide 40 mg tablet 40 mg PO QAM #30 tabs 09/12/23 pantoprazole 40 mg tablet,delayed 40 mg PO BID #60 tabs 09/12/23 release Results & Data (ED) Vital Signs Vital Signs - 24 hr 02/28/24 16:15 02/28/24 16:25 02/28/24 17:02 Temperature 36.5 C Temperature Source Temporal Artery Scan Pulse Rate 92 H Pulse Rate [Apical] Respiratory Rate 20 Respiratory Effort / Characteristics Non-Labored Spontaneous Non-Labored Spontaneous Short of Breath SOB on Exertion Respiratory Depth Normal Normal Respiratory Pattern Regular Blood Pressure 127/70 Blood Pressure [Right Arm] Blood Pressure Mean 89 Blood Pressure Mean [Right Arm] Pulse Oximetry 99 94 Oxygen Delivery Method Room Air Room Air Sepsis Recent Fever Within 48 Hours No Sepsis New/Unexplained Change in Mental Status N/A Sepsis Action Taken by Nursing No Action Required 02/28/24 17:02 02/28/24 17:02 02/28/24 17:47 Temperature Temperature Source Pulse Rate 89 Pulse Rate [Apical] 90 Respiratory Rate 31 H Respiratory Effort / Characteristics Labored Respiratory Depth Respiratory Pattern Regular Blood Pressure Blood Pressure [Right Arm] 123/78 Blood Pressure Mean Blood Pressure Mean [Right Arm] 93 Pulse Oximetry 96 96 Oxygen Delivery Method Room Air Room Air Sepsis Recent Fever Within 48 Hours Sepsis New/Unexplained Change in Mental Status Sepsis Action Taken by Nursing Laboratory Data 02/28/24 16:35 02/28/24 16:35 Lab Results 02/28/24 02/28/24 Range/Units 16:35 17:16 WBC 4.20 L (4.8-10.8) K/ul RBC 3.11 L (4.70-6.10) M/uL Hgb 9.2 L (14.0-18.0) g/dl Hct 29.3 L (42.0-52.0) % MCV 94.2 (80.0-100.0) fL MCH 29.6 (25.0-34.0) pg MCHC 31.4 L (32.0-36.0) g/dL RDW Std Deviation 62.2 H (36.4-46.3) fL RDW Coeff of Nick 18.4 H (11.5-14.5) % Plt Count 137 (130-400) K/uL MPV 10.2 (9.4-12.4) fL Immature Gran % (Auto) 0.5 % Neut % (Auto) 71.9 % Lymph % (Auto) 8.1 % Fountain % (Auto) 10.5 % Eos % (Auto) 8.3 % Baso % (Auto) 0.7 % Neut # (Auto) 3.02 (1.40-6.50) K/uL Lymph # (Auto) 0.34 L (1.20-3.40) K/uL Fountain # (Auto) 0.44 (0.11-0.59) K/uL Eos # (Auto) 0.35 (0.00-0.50) K/uL Baso # (Auto) 0.03 (0.00-0.20) K/uL Immature Gran # (Auto) 0.02 (0.01-0.20) K/uL PT 26.5 H (9.0-12.0) Seconds INR 2.7 H (0.9-1.1) APTT 42 H (21-31) Seconds PTT Ratio 1.6 Sodium 135 L (136-145) mmol/L Potassium 4.9 (3.5-5.1) mmol/L Chloride 107 (98-107) mmol/L Carbon Dioxide 20 L (21-32) mmol/L Anion Gap 8 (3-11) BUN 52 H (6-23) mg/dl Creatinine 2.98 H (0.6-1.4) mg/dl Est Cr Clr Drug Dosing 20.4 ml/min Est GFR ( Amer) 22.2 ml/min Est GFR (Non-Af Amer) 19.2 ml/min BUN/Creatinine Ratio 17.4 (10-20) Glucose 126 H (70-99(Fasting)) mg/dl Calcium 9.0 (8.6-10.3) mg/dl Total Bilirubin 0.7 (0.2-1.0) mg/dl AST 62 H (13-39) U/L ALT 12 (7-52) U/L Alkaline Phosphatase 36 (34-104) U/L Troponin I High Sens 2254.0 H* (0-20) pg/ml Total Protein 7.8 (6.0-8.3) gm/dl Albumin 3.7 (3.4-5.0) gm/dl Globulin 4.1 H (2.5-4.0) gm/dl Albumin/Globulin Ratio 0.9 (0.9-2) Blood Type O Negative Antibody Screen NEGATIVE Administered Medications Discontinued Medications Ceftriaxone Sodium (Rocephin) 2,000 mg in 50 mls @ 100 mls/hr IV NOW STA Stop: 02/28/24 18:28 Last Admin: 02/28/24 18:29 Dose: 100 mls/hr Documented By: AYLIN Imaging Data Radiologist's Impression: Chest X-Ray 02/28/24 16:24 SINGLE VIEW CHEST CLINICAL HISTORY: Atypical chest pain. FINDINGS: 2 PA chest radiographs are compared to study dated 09/05/2023. The patient is status post midline sternotomy. The heart is enlarged but noting atherosclerotic calcification of the thoracic aorta. There is pulmonary vascular congestion with evidence of interstitial edema. There are small pleural effusions with dependent consolidation. No pneumothorax is seen. The skeletal structures are osteopenic. The bony thorax is grossly intact. Surgical clips are seen in the upper abdomen. IMPRESSION: 1. Cardiomegaly with evidence of congestive failure and mild pulmonary edema. Radiographic follow-up to resolution is recommended. 2. Small pleural effusions with dependent consolidation. ACT 112: Negative or not required by law. Electronically signed by: Fuad Almaraz M.D. 02/28/2024 5:04 PM Discharge Plan Visit Data Chief Complaint: Cardiac Assessment Stated Complaint: PLURAL IFUSION, CARDIAC EVENT, KIDNEYS ED Provider: Khalif Salazar Discharge Problem: Acute UTI, VINICIUS (acute kidney injury), Sepsis, Elevated troponin, Pulmonary edema Patient Disposition: Being Evaluated by Hospitalist Forms Stand Alone Forms: CME Prescriptions Prescriptions: No Action amiodarone 200 mg tablet 100 mg PO QAM cholecalciferol (vitamin D3) 50 mcg (2,000 unit) capsule 50 mcg PO QPM clonazepam 0.5 mg tablet 0.5 mg PO DAILY PRN (Reason: Anxiety) Rx Instructions: unable to verify fenofibric acid (choline) 135 mg capsule,delayed release(DR/EC) 135 mg PO QAM hydrocortisone acetate 1 % cream 1 applic topical BID PRN (Reason: Skin Irritation) Rx Instructions: unable to verify aripiprazole [Abilify] 2 mg tablet 2 mg PO QAM Patient Comments: prescription ran out, waiting to hear back from PCP to see if he will resume taking it. sertraline 100 mg Tablet 100 mg PO QPM tamsulosin 0.4 mg capsule 0.8 mg PO QPM ferrous fumarate-vitamin C 66-125 mg Tablet,Chewable 1 tab PO 3XWK Qty: 0 Rx Instructions: as directed @ 5PM . Fri/Fri/Fri warfarin 2 mg tablet 3 mg PO DAILY Hold Instructions: Hold until follow up INR in 2 days. Rx Instructions: 3 mg daily. Pt test INR at home every Friday. 5:00pm cyanocobalamin (vitamin B-12) [Vitamin B-12] 1,000 mcg Tablet 1,000 mcg PO DAILY levothyroxine [Synthroid] 75 mcg tablet 75 mcg PO QAM furosemide 40 mg Tablet 40 mg PO QAM Qty: 30 0RF pantoprazole 40 mg tablet,delayed release (DR/EC) 40 mg PO BID Qty: 60 0RF Prevagen 30 mg capsule 30 mg PO DAILY lactulose 10 gram/15 mL Syrup 30 g PO TID [employer] 3 billion cell Capsule 1 cap PO QAM ondansetron 4 mg tablet,disintegrating 4 mg PO Q6H PRN (Reason: Nausea And Vomiting) Referrals Referrals: Sho Bowman DO [Primary Care Provider] -
[2024-02-28] MEDS: cefTRIAXone SODIUM 2,000 MG/50 ML BAG IV STA (18:29)
[2024-02-28 19:54] LABS: Appearance Urine Slightly Cloudy (Clear); Bilirubin Urine Negative (Negative); Blood Urine 3+ (Negative); Color Urine Amber; Glucose Urine UA Trace (Negative); Ketones Urine Negative (Negative); Leukocyte Esterase Urine Negative (Negative); Nitrite Urine Negative (Negative); Protein Urine 2+ (Negative); Urobilinogen Urine Negative (Negative); pH Urine 5.5 (4.5-7.5)
[2024-02-28 19:58] LABS: RBC Urine >20 /hpf (0-2)
[2024-02-28 19:59] LABS: Bacteria Urine 1+ (None Seen)
--- NOTE | 2024-02-28 20:09 | History & Physical Report ---
Date of Service February 28, 2024 Assessment & Plan (1) Hypotension: (2) Encephalopathy: (3) Pulmonary edema: (4) Urethral stricture: (5) Elevated troponin: (6) Indwelling Duran catheter present: (7) Gross hematuria: (8) Rectal bleeding: (9) Sepsis: (10) Acute kidney injury superimposed on CKD: (11) Acute UTI: (12) Cirrhosis: (13) Diabetes mellitus, type 2: (14) Hx of prostatic malignancy: (15) Hypothyroidism: (16) Failure to thrive in adult: (17) Anemia: (18) Hx of aortic valve replacement, mechanical: (19) Anemia in chronic kidney disease (CKD): Plan Hypotension/anemia/sepsis due to UTI- Multifactorial Patient initially presented to [facility] with systolic blood pressure in the 70s. He was given IV fluid resuscitation, transfuse 1 unit PRBCs for hemoglobin 7.7 blood pressure improved to the low 100s. At [facility]-following imaging studies: CT head contrast was negative. CT scan of chest showed bilateral pleural effusions. CT scan abdomen pelvis showed a right renal cyst Sepsis due to UTI/status post cystoscopy with urethral balloon dilatation/chronic indwelling Duran catheter/prostate cancer- Follow urine culture sensitivity Continue tamsulosin, may need to decrease dosing for blood pressure Empiric ceftriaxone 2 g IV daily Elevated troponin/mechanical aortic valve replacement on chronic warfarin/chronic atrial fibrillation/CAD/status post CABG/pleural effusion- Troponin recorded at [facility] initially 5081, follow-up 3848 and then at 3355. Troponin on arrival [facility] 2053, with follow-up 2031.4 The patient will be admitted to telemetry for serial cardiac enzymes, serial EKG's, cardiac rhythm monitoring and a 2-D echocardiogram with Dopplers. Most recent echo at [facility] in 08/08/2023 ejection fraction 55-60%, mechanical aortic valve, severe TR and pleural effusion. INR is 2.7, with current warfarin dosing to be continued, and INR followed serially Pleural effusion on the right may be best treated with thoracentesis, however, is presently anticoagulated with therapeutic warfarin at an INR of 2.7. Defer for now Continue amiodarone Hold furosemide overnight Consult cardiology Anemia Multifactorial, including not limited to: Anemia of chronic disease, chronic GI bleeding, hematuria Hemoglobin was noted to be 7.7 at its lowest at [facility], and received 1 unit PRBCs there. Hemoglobin follow-up was 8.5 Hemoglobin on admission is 9.2, and will follow serially Shortness of breath/dyspnea- Did improve with a DuoNeb treatment, which will be given every 2 hours as needed Cirrhosis/chronic GI bleeding/hepatosplenomegaly/hepatic encephalopathy Continue lactulose 3 times daily Ammonia level 53, which is elevated for him, and may be contributing as mild hepatic encephalopathy to his altered mentation Consult gastroenterology Acute kidney injury superimposed on CKD- Creatinine upon admission to [facility] emergency department was initially 3.82, with follow-up 3.73 and then further follow-up 3.41. Upon arrival to [facility], creatinine 2.98, with his baseline range 1.68- 2.12 Blood pressure is borderline to diurese at this point, and hesitant to give IV fluids due to significant pleural effusion For now conservative therapy and recheck laboratories in a.m. Depression with anxiety- Continue aripiprazole and sertraline Hold clonazepam Pancytopenia- Follows with hematology at [facility] History of Present Illness Chief Complaint: The patient presents to the emergency department after family brought him from the emergency department at [facility], where he was initially being held in the emergency department, where he was assessed for inpatient admission on 02/25, but no beds became available. He had been seen by urology at [facility] on 02/24, undergoing a cystoscopy with balloon urethral dilatation and was discharged with a Duran catheter in place. Family notes that the patient become confused and had a low blood pressure, and was brought to the ED at [facility] for assessment. There he received ceftriaxone IV, received IV fluids, and was transfused 1 unit PRBCs for hemoglobin of 7.7. He was noted to have elevated troponin, of 5081, which ultimately trended downward to 3848 and then 3355. Patient's family brought into the emergency department about [place], where he is referred to the [facility] hospitalist service for admission. His primary symptoms at this point are shortness of breath, fatigue, and slowly improving confusion. Family reports that the patient was noted to have fluid in one of his lungs. Primary Care Provider: Sho Bowman DO The patient is a 79-year-old male with a past medical history including panc ytopenia, hypothyroidism, failure to thrive, pleural effusion, cirrhosis, status post AVR on chronic anticoagulation with warfarin, diabetes mellitus type 2, GERD, prostate cancer, aortic aneurysm repair, anemia of chronic disease, hematuria and intermittent rectal bleeding, and generalized weakness. The patient presented this evening with history as noted above. Allergies Allergy/AdvReac Type Severity Reaction Status Date / Time plasma protein fraction Allergy Severe FROZEN Verified 02/28/24 18:35 PLASMA-- DEVELOPED HIVES Home Medications Medication Instructions Recorded Confirmed Type amiodarone 200 mg tablet 100 mg PO QAM 10/07/22 02/28/24 History cholecalciferol (vitamin D3) 50 50 mcg PO QPM 10/07/22 02/28/24 History mcg (2,000 unit) capsule clonazepam 0.5 mg tablet 0.5 mg PO DAILY PRN Anxiety 10/07/22 02/28/24 History fenofibric acid (choline) 135 mg 135 mg PO QAM 10/07/22 02/28/24 History capsule,delayed release hydrocortisone acetate 1 % topical 1 applic topical BID PRN Skin 10/07/22 02/28/24 History cream Irritation aripiprazole 2 mg tablet (Abilify) 2 mg PO QAM 11/14/22 02/28/24 History sertraline 100 mg tablet 100 mg PO QPM 11/25/22 02/28/24 History tamsulosin 0.4 mg capsule 0.8 mg PO QPM 11/25/22 02/28/24 History ferrous fumarate-vitamin C 66 1 tab PO 3XWK ##0 08/08/23 02/28/24 History mg-125 mg chewable tablet warfarin 2 mg tablet 3 mg PO DAILY 08/08/23 02/28/24 History cyanocobalamin (vitamin B-12) 1,000 mcg PO DAILY 08/31/23 02/28/24 History 1,000 mcg tablet (Vitamin B-12) levothyroxine 75 mcg tablet 75 mcg PO QAM 08/31/23 02/28/24 History (Synthroid) furosemide 40 mg tablet 40 mg PO QAM #30 tabs 09/12/23 02/28/24 Rx pantoprazole 40 mg tablet,delayed 40 mg PO BID #60 tabs 09/12/23 02/28/24 Rx release Prevagen 30 mg PO DAILY 01/22/24 02/28/24 History Lactobacillus rhamnosus-Bifidobac. 1 cap PO QAM 01/22/24 02/28/24 History animalis 3 billion cell capsule ([employer]) lactulose 10 gram/15 mL oral syrup 30 g PO TID 01/22/24 02/28/24 History ondansetron 4 mg disintegrating 4 mg PO Q6H PRN Nausea And Vomiting 02/28/24 02/28/24 History tablet Past Med/Surg History Problem List (Updated 02/29/24 @ 03:35 by Denny Lynch MD) Hypotension Anemia in chronic kidney disease (CKD) Rectal bleeding pt's reports ongoing rectal bleeding (GI is aware) since XRT for prostate Ca; pt takes iron supplement Hx of aortic valve replacement, mechanical 1989 Indwelling Duran catheter present Encephalopathy Acute kidney injury superimposed on CKD Pulmonary edema (Acute) Elevated troponin (Acute) Sepsis (Acute) VINICIUS (acute kidney injury) (Acute) Acute UTI (Acute) Urethral stricture Urge incontinence Delirium Volume overload Thrombocytopenia Hypothyroidism Failure to thrive in adult Pleural effusion (Acute) Anemia (Acute) Generalized weakness (Acute) Cirrhosis Diarrhea CHF (congestive heart failure) (Acute) S/P AVR Weakness Gross hematuria Encounter for pre-operative examination Diabetes mellitus, type 2 NIDDM GERD (gastroesophageal reflux disease) Hx of prostatic malignancy Spring 2020 Treated with radiation treatments Hx of aortic aneurysm ascending aortic aneurysm s/p dissection 05/2019 and subsequent repair of aortic root (28mm Gelweave graft) Prostate cancer Urinary retention Medical History Anemia pt's reports ongoing rectal bleeding (GI is aware) since XRT for prostate Ca; pt takes iron supplement; recent iron infusions and procrit injections (02/12/24 and will have another on 02/19/24) Anxiety CHF (congestive heart failure) follows with [facility] Chronic kidney disease Cirrhosis follows with GI Dementia pt had significant confusion during 09/2023 admission [facility]; states that he is 'much better' at home. she also notes increased confusion after General Anesthesia Diabetes type 2, controlled metformin d/c during [facility] admission 2/2 hypoglycemia (pt has been having GI issues and has not been eating normal diet) Failure to thrive in adult admission [facility] 08/31/23-09/12/23. pt's states that he has improved slightly since d/c (he has also since had an admission to [facility] since that time per ; unknown dx) Generalized weakness uses cane to ambulate GERD (gastroesophageal reflux disease) History of COVID-19 x2 ; 10/2022 most recent (pt was asymptomatic); no ongoing sx History of fractured vertebra Cervical fracture 11/18/21- medical management recommended, follows with physical therapy, "full ROM" per patient Hx of aortic aneurysm ascending aortic aneurysm s/p dissection 05/2019 and subsequent repair of aortic root (28mm Gelweave graft) Hypertension meds reduced during 09/2023 [facility] admission 2/ hypotension Hypothyroidism Nausea & vomiting current sx; following with GI Osteoarthritis Portal hypertension Prostate CA XRT 2020; [facility] 12/05/22 Rectal bleeding pt's reports ongoing rectal bleeding (GI is aware) since XRT for prostate Ca; pt takes iron supplement Suspected sleep apnea unaware Thrombocytopenia Urinary tract infection recurrent; follows with urology Surgical History History of aortic aneurysm repair 05/2021 in [facility] Follows with [facility] Cardiology History of appendectomy History of cholecystectomy History of colonoscopy History of endoscopy capsule endoscopy History of flexible sigmoidoscopy History of prostate surgery multiple; most recent [facility] 12/05/22: MAC without issue Hx of aortic valve replacement, mechanical 1988 Family History Mother Diabetes Hypertension Father Diabetes Other No family history of adverse response to anesthesia Social History Smoking Status: Never smoker Second Hand Exposure: No; Do You Dip or Chew Tobacco: No; Hx Alcohol Use: No Hx Substance Use: No Preferred Language: Israeli Communication Ability: Effective Instrument Tech Required: No Beliefs That Will Affect Care: None marital status: Current Living Situation: Spouse current occupational status: retired Other Information That Helps Us Care for You: No Feels Safe at Home: Yes Safety Concerns: Feels Safe At This Time Assistive Devices: Cane, Glasses and Hearing Aid - Bilateral Review of Systems Review of Systems: The patient with family support to answer questions denies palpitations, sore throat, fevers, chills, sweats, vomiting, diarrhea , constipation, abdominal pain, pelvic pain, lightheadedness, dizziness, headache, memory loss, loss of consciousness,imbalance, focal weakness, numbness or tingling in arms or legs, generalized arthralgias or myalgias, back or neck pain, or night sweats. The review of systems is otherwise negative other than for that already noted above, and at least 10 systems have been reviewed. Physical Exam Physical Exam: The patient is awake, alert and oriented 3, well developed and well nourished, normocephalic and atraumatic, lying in bed and in no acute distress. HEENT--PERRL, EOMI, mucous membranes and oropharynx mildly dry. Neck--supple. No JVD. No bruits. Thyroid normal, trachea midline, no adenopathy. Heart--normal S1 and S2. No murmurs, rubs or gallops. Lungs--decreased breath sounds right base. Otherwise scattered wheezes throughout. Mild respiratory distress, no accessory muscle use. Abdomen--normal bowel sounds and soft. Nontender. Nondistended, no hernias or masses, no organomegaly. Extremities--no cyanosis or clubbing. No edema. Dermatologic--normal skin turgor, normal color, no abnormal lymph nodes, no rash. Neurologic--cranial nerves II through XII grossly intact. Rheumatologic--normal range of motion. Psychiatric--normal affect. Results & Data Results & Data Vital Signs (Past 12 Hours) Vital Signs Temp Pulse Pulse Resp BP BP Pulse Ox 02/28/24 19:18 80 26 H 122/80 94 02/28/24 17:47 89 02/28/24 17:02 96 02/28/24 17:02 90 31 H 123/78 96 02/28/24 17:02 94 02/28/24 16:15 36.5 C 92 H 20 127/70 99 O2 Del Method 02/28/24 19:18 Room Air 02/28/24 17:47 02/28/24 17:02 Room Air 02/28/24 17:02 Room Air 02/28/24 17:02 Room Air 02/28/24 16:15 Room Air Laboratory Results Laboratory Results WBC 3.71 K/ul (4.8-10.8) L 02/29/24 02:03 RBC 3.02 M/uL (4.70-6.10) L 02/29/24 02:03 Hgb 8.8 g/dl (14.0-18.0) L 02/29/24 02:03 Hct 28.6 % (42.0-52.0) L 02/29/24 02:03 MCV 94.7 fL (80.0-100.0) 02/29/24 02:03 MCH 29.1 pg (25.0-34.0) 02/29/24 02:03 MCHC 30.8 g/dL (32.0-36.0) L 02/29/24 02:03 RDW Std Deviation 62.7 fL (36.4-46.3) H 02/29/24 02:03 RDW Coeff of Nick 18.1 % (11.5-14.5) H 02/29/24 02:03 Plt Count 136 K/uL (130-400) 02/29/24 02:03 MPV 10.5 fL (9.4-12.4) 02/29/24 02:03 Immature Gran % (Auto) 0.5 % 02/28/24 16:35 Neut % (Auto) 71.9 % 02/28/24 16:35 Lymph % (Auto) 8.1 % 02/28/24 16:35 Coleman % (Auto) 10.5 % 02/28/24 16:35 Eos % (Auto) 8.3 % 02/28/24 16:35 Baso % (Auto) 0.7 % 02/28/24 16:35 Neut # (Auto) 3.02 K/uL (1.40-6.50) 02/28/24 16:35 Lymph # (Auto) 0.34 K/uL (1.20-3.40) L 02/28/24 16:35 Coleman # (Auto) 0.44 K/uL (0.11-0.59) 02/28/24 16:35 Eos # (Auto) 0.35 K/uL (0.00-0.50) 02/28/24 16:35 Baso # (Auto) 0.03 K/uL (0.00-0.20) 02/28/24 16:35 Immature Gran # (Auto) 0.02 K/uL (0.01-0.20) 02/28/24 16:35 PT 26.5 Seconds (9.0-12.0) H 02/28/24 16:35 INR 2.7 (0.9-1.1) H 02/28/24 16:35 APTT 42 Seconds (21-31) H 02/28/24 16:35 PTT Ratio 1.6 02/28/24 16:35 Sodium 135 mmol/L (136-145) L 02/28/24 16:35 Potassium 4.9 mmol/L (3.5-5.1) 02/28/24 16:35 Chloride 107 mmol/L (98-107) 02/28/24 16:35 Carbon Dioxide 20 mmol/L (21-32) L 02/28/24 16:35 Anion Gap 8 (3-11) 02/28/24 16:35 BUN 52 mg/dl (6-23) H 02/28/24 16:35 Creatinine 2.98 mg/dl (0.6-1.4) H 02/28/24 16:35 Est Cr Clr Drug Dosing 20.4 ml/min 02/28/24 16:35 Est GFR ( Amer) 22.2 ml/min 02/28/24 16:35 Est GFR (Non-Af Amer) 19.2 ml/min 02/28/24 16:35 BUN/Creatinine Ratio 17.4 (10-20) 02/28/24 16:35 Glucose 126 mg/dl (70-99(Fasting)) H 02/28/24 16:35 Calcium 9.0 mg/dl (8.6-10.3) 02/28/24 16:35 Total Bilirubin 0.7 mg/dl (0.2-1.0) 02/28/24 16:35 AST 62 U/L (13-39) H 02/28/24 16:35 ALT 12 U/L (7-52) 02/28/24 16:35 Alkaline Phosphatase 36 U/L (34-104) 02/28/24 16:35 Ammonia 53.0 umol/L (18-72) 02/28/24 18:46 Troponin I High Sens 2119.2 pg/ml (0-20) H* 02/28/24 22:46 Total Protein 7.8 gm/dl (6.0-8.3) 02/28/24 16:35 Albumin 3.7 gm/dl (3.4-5.0) 02/28/24 16:35 Globulin 4.1 gm/dl (2.5-4.0) H 02/28/24 16:35 Albumin/Globulin Ratio 0.9 (0.9-2) 02/28/24 16:35 Urine Color Kalpana 02/28/24 19:20 Urine Appearance Slightly Cloudy (Clear) 02/28/24 19:20 Urine pH 5.5 (4.5-7.5) 02/28/24 19:20 Ur Specific Bly 1.020 (1.000-1.030) 02/28/24 19:20 Urine Protein 2+ (Negative) H 02/28/24 19:20 Urine Glucose (UA) Trace (Negative) H 02/28/24 19:20 Urine Ketones Negative (Negative) 02/28/24 19:20 Urine Blood 3+ (Negative) H 02/28/24 19:20 Urine Nitrite Negative (Negative) 02/28/24 19:20 Urine Bilirubin Negative (Negative) 02/28/24 19:20 Urine Urobilinogen Negative (Negative) 02/28/24 19:20 Ur Leukocyte Esterase Negative (Negative) 02/28/24 19:20 Urine RBC >20 /hpf (0-2) H 02/28/24 19:20 Urine WBC 6-10 /hpf (0-5) H 02/28/24 19:20 Ur Epithelial Cells 3-5 /hpf (0-2) H 02/28/24 19:20 Urine Bacteria 1+ (None Seen) H 02/28/24 19:20 Blood Type O Negative 02/28/24 17:16 Blood Type Recheck O Negative 02/29/24 02:03 Antibody Screen NEGATIVE 02/28/24 17:16 Impressions Chest X-Ray 02/28/24 16:24 SINGLE VIEW CHEST CLINICAL HISTORY: Atypical chest pain. FINDINGS: 2 PA chest radiographs are compared to study dated 09/05/2023. The patient is status post midline sternotomy. The heart is enlarged but noting atherosclerotic calcification of the thoracic aorta. There is pulmonary vascular congestion with evidence of interstitial edema. There are small pleural effusions with dependent consolidation. No pneumothorax is seen. The skeletal structures are osteopenic. The bony thorax is grossly intact. Surgical clips are seen in the upper abdomen. IMPRESSION: 1. Cardiomegaly with evidence of congestive failure and mild pulmonary edema. Radiographic follow-up to resolution is recommended. 2. Small pleural effusions with dependent consolidation. ACT 112: Negative or not required by law. Electronically signed by: Fuad Almaraz M.D. 02/28/2024 5:04 PM Code Status & VTE Plan Code Status Full code VTE Prophylaxis Plan VTE Prophylaxis will be ordered: Yes PG Care Time/CCT Total # of Minutes Spent Total Time Spent with Patient: Total time spent is greater than 50% in coordination of care (as documented) at patient's floor/unit and/or counseling patient: Coding Level of Care Code 82167 INT INP/OBS CARE 3/75MIN Diagnoses Hypotension I95.9 Encephalopathy G93.40 Pulmonary edema J81.1 Urethral stricture N35.919 Elevated troponin R79.89 Indwelling Duran catheter present Z97.8 Gross hematuria R31.0 Rectal bleeding K62.5 Sepsis A41.9 Acute kidney injury superimposed on CKD N17.9; N18.9 Acute UTI N39.0 Cirrhosis K74.60 Diabetes mellitus, type 2 E11.9 Hx of prostatic malignancy Z85.46 Hypothyroidism E03.9 Failure to thrive in adult R62.7 Anemia D64.9 Anemia type: unspecified type Hx of aortic valve replacement, mechanical Z95.2 Anemia in chronic kidney disease (CKD) N18.9; D63.1 (17) Anemia Anemia type: unspecified type Qualified Code(s): D64.9 - Anemia, unspecified
[2024-02-28] MEDS ORDERED: SIMETHICONE 80 MG CHEW PO PRN (20:32)
[2024-02-28] MEDS: SIMETHICONE 80 MG CHEW PO ONE (21:53)
[2024-02-28] MEDS ORDERED: ONDANSETRON 4 MG OD TAB PO PRN (22:08)
[2024-02-28] MEDS ORDERED: ACETAMINOPHEN 325 MG TAB PO PRN (22:08)
[2024-02-28] MEDS ORDERED: NON-FORMULARY MEDICATION (Ferrous Fumarate-Vitamin C 66-125 mg Tablet,Chewable) PO SCH (22:08)
[2024-02-28] MEDS ORDERED: HYDROCORTISONE 1% CRM 30 GM TUBE EXT PRN (22:27)
[2024-02-28] MEDS: PANTOprazole 40 MG TAB PO SCH (23:07)
[2024-02-28] MEDS: TAMSULOSIN HCL 0.4 MG CAP PO SCH (23:07)
[2024-02-28] MEDS: SERTRALINE HCL 100 MG TABLET PO SCH (23:07)
[2024-02-28] MEDS: LACTULOSE SYRUP 30 GM/45 ML UDP PO SCH (23:08)
[2024-02-28] MEDS: CHOLECALCIFEROL 25 MCG (1000 UNITS) TAB PO SCH (23:08)
[2024-02-29] MEDS ORDERED: SODIUM CHLORIDE 0.9% 250 ML IV PRN (01:33)
[2024-02-29 02:27] LABS: Hematocrit (blood only) 28.6 % (42.0-52.0); Hemoglobin 8.8 g/dl (14.0-18.0); Mean Corpuscular Hemoglobin 29.1 pg (25.0-34.0); Mean Corpuscular Hgb Conc 30.8 g/dL (32.0-36.0); Mean Corpuscular Volume 94.7 fL (80.0-100.0); Mean Platelet Volume 10.5 fL (9.4-12.4); Platelet Count 136 K/uL (130-400); RDW Coefficient of Variation 18.1 % (11.5-14.5); RDW Standard Deviation 62.7 fL (36.4-46.3); Red Blood Count 3.02 M/uL (4.70-6.10); White Blood Count 3.71 K/ul (4.8-10.8)
--- NOTE | 2024-02-29 04:06 | Billing Data ---
Date of Service February 29, 2024 Coding Level of Care Code 90348 CRITICAL CARE 1ST 30-74M Additional Critical Care Time Total Critical Care Time: 60
[2024-02-29 04:53] LABS: Basophils # (auto) 0.03 K/uL (0.00-0.20); Basophils % (auto) 0.9 %; Eosinophils # (auto) 0.29 K/uL (0.00-0.50); Eosinophils % (auto) 8.5 %; Hematocrit (blood only) 28.7 % (42.0-52.0); Hemoglobin 8.7 g/dl (14.0-18.0); Immature Granulocytes # (auto) 0.01 K/uL (0.01-0.20); Immature Granulocytes % (auto) 0.3 %; Lymphocytes # (auto) 0.39 K/uL (1.20-3.40); Lymphocytes % (auto) 11.5 %; Mean Corpuscular Hgb Conc 30.3 g/dL (32.0-36.0); Mean Corpuscular Volume 95.7 fL (80.0-100.0); Mean Platelet Volume 10.7 fL (9.4-12.4); Monocytes # (auto) 0.38 K/uL (0.11-0.59); Monocytes % (auto) 11.2 %; Neutrophils % (auto) 67.6 %; Platelet Count 129 K/uL (130-400); RDW Coefficient of Variation 18.3 % (11.5-14.5); RDW Standard Deviation 62.8 fL (36.4-46.3)
[2024-02-29 04:59] LABS: INR 2.7 (0.9-1.1); Prothrombin Time 26.6 Seconds (9.0-12.0)
[2024-02-29 05:06] LABS: Albumin Globulin Ratio 0.9 (0.9-2); Albumin Level 3.5 gm/dl (3.4-5.0); BUN Creatinine Ratio 17.6 (10-20); Bilirubin,Total 0.7 mg/dl (0.2-1.0); Calcium 8.8 mg/dl (8.6-10.3); Creatinine Clr Calc Pharmacy 22.4 ml/min; Est GFR (African American) 24.8 ml/min; Est GFR (Non-African American) 21.4 ml/min; Globulin 3.7 gm/dl (2.5-4.0); Magnesium 2.2 mg/dl (1.7-2.4); Potassium 4.8 mmol/L (3.5-5.1); Total Protein 7.2 gm/dl (6.0-8.3)
[2024-02-29] MEDS: LEVOTHYROXINE SODIUM 75 MCG TABLET PO SCH (08:56)
[2024-02-29] MEDS: ARIPIprazole 1 MG/ML ORAL SOLN 150 ML BTL PO SCH (08:56)
[2024-02-29] MEDS: AMIODARONE 200 MG TAB PO SCH (08:56)
[2024-02-29] MEDS: CYANOCOBALAMIN (B-12) 500 MCG TABLET PO SCH (08:56)
[2024-02-29] MEDS: FUROSEMIDE 40 MG TAB PO SCH (08:56)
[2024-02-29] MEDS ORDERED: [UNRECOGNIZED DRUG - OTHER] PO SCH (09:00)
--- NOTE | 2024-02-29 10:52 | Gastrointestinal Consultation ---
Date of Consultation February 29, 2024 Assessment & Plan (1) Rectal bleeding: Pleasant man with severe hearing deficit with persistent rectal bleeding. 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 Obviously he needs anticoagulation because of mechanical heart valve so bleeding is going to continue. While other issues are being treated I will follow with you but will defer further evaluation to his GI in [place] unless emergent treatment needed. Not much can be done while patient is anticoagulated though. His hemoglobin seems to be stable though. History of Present Illness Reason for Consultation: rectal bleeding Attending Physician: Dennis Pan MD History of Present Illness 79 year old man admitted with presumptive sepsis. I am asked to see him for rectal bleeding. He is very hard of hearing so history is difficult. He tells me he has had rectal bleeding for the past four years. During that time he has had three colonoscopies in [place] with the last being three months ago. He has been told that the bleeding is from radiation that he had for prostate cancer. He says treatment has been done but he doesn't know what the treatment is. He is anticoagulated because of mechanical AVR. He denies rectal pain. He is complaining because they gave him medication to move her bowels. Allergies Allergy/AdvReac Type Severity Reaction Status Date / Time plasma protein fraction Allergy Severe FROZEN Verified 02/28/24 18:35 PLASMA-- DEVELOPED HIVES Home Medications Medication Instructions Recorded Confirmed Type amiodarone 200 mg tablet 100 mg PO QAM 10/07/22 02/28/24 History cholecalciferol (vitamin D3) 50 50 mcg PO QPM 10/07/22 02/28/24 History mcg (2,000 unit) capsule clonazepam 0.5 mg tablet 0.5 mg PO DAILY PRN Anxiety 10/07/22 02/28/24 History fenofibric acid (choline) 135 mg 135 mg PO QAM 10/07/22 02/28/24 History capsule,delayed release hydrocortisone acetate 1 % topical 1 applic topical BID PRN Skin 10/07/22 02/28/24 History cream Irritation aripiprazole 2 mg tablet (Abilify) 2 mg PO QAM 11/14/22 02/28/24 History sertraline 100 mg tablet 100 mg PO QPM 11/25/22 02/28/24 History tamsulosin 0.4 mg capsule 0.8 mg PO QPM 11/25/22 02/28/24 History ferrous fumarate-vitamin C 66 1 tab PO 3XWK ##0 08/08/23 02/28/24 History mg-125 mg chewable tablet warfarin 2 mg tablet 3 mg PO DAILY 08/08/23 02/28/24 History cyanocobalamin (vitamin B-12) 1,000 mcg PO DAILY 08/31/23 02/28/24 History 1,000 mcg tablet (Vitamin B-12) levothyroxine 75 mcg tablet 75 mcg PO QAM 08/31/23 02/28/24 History (Synthroid) furosemide 40 mg tablet 40 mg PO QAM #30 tabs 09/12/23 02/28/24 Rx pantoprazole 40 mg tablet,delayed 40 mg PO BID #60 tabs 09/12/23 02/28/24 Rx release Prevagen 30 mg PO DAILY 01/22/24 02/28/24 History Lactobacillus rhamnosus-Bifidobac. 1 cap PO QAM 01/22/24 02/28/24 History animalis 3 billion cell capsule (inthinc) lactulose 10 gram/15 mL oral syrup 30 g PO TID 01/22/24 02/28/24 History ondansetron 4 mg disintegrating 4 mg PO Q6H PRN Nausea And Vomiting 02/28/24 02/28/24 History tablet Patient History Medical History Chronic kidney disease Hypothyroidism Hx of aortic aneurysm ascending aortic aneurysm s/p dissection 05/2019 and subsequent repair of aortic root (28mm Gelweave graft) Failure to thrive in adult admission [facility] 08/31/23-09/12/23. pt's states that he has improved slightly since d/c (he has also since had an admission to [facility] since that time per ; unknown dx) Thrombocytopenia Prostate CA XRT 2020; Rezum 12/05/22 Dementia pt had significant confusion during 09/2023 admission [facility]; states that he is 'much better' at home. she also notes increased confusion after General Anesthesia GERD (gastroesophageal reflux disease) Portal hypertension Diabetes type 2, controlled metformin d/c during [facility] admission 2/2 hypoglycemia (pt has been having GI issues and has not been eating normal diet) Cirrhosis follows with GI Anemia pt's reports ongoing rectal bleeding (GI is aware) since XRT for prostate Ca; pt takes iron supplement; recent iron infusions and procrit injections (02/12/24 and will have another on 02/19/24) Generalized weakness uses cane to ambulate Urinary tract infection recurrent; follows with urology Nausea & vomiting current sx; following with GI CHF (congestive heart failure) follows with [facility] Osteoarthritis Anxiety Hypertension meds reduced during 09/2023 [facility] admission 2/2 hypotension Suspected sleep apnea unaware History of COVID-19 x2 ; 10/2022 most recent (pt was asymptomatic); no ongoing sx History of fractured vertebra Cervical fracture 11/18/21- medical management recommended, follows with physical therapy, "full ROM" per patient Surgical History History of endoscopy capsule endoscopy History of flexible sigmoidoscopy History of colonoscopy History of cholecystectomy History of appendectomy History of prostate surgery multiple; most recent Rezu 12/05/22: MAC without issue History of aortic aneurysm repair 05/2021 in [facility] Follows with [facility] Cardiology Family History Mother Diabetes Hypertension Father Diabetes Other No family history of adverse response to anesthesia Social History Smoking Status: Never smoker Second Hand Exposure: No; Do You Dip or Chew Tobacco: No; Hx Alcohol Use: No Hx Substance Use: No Preferred Language: Kyrgyz Communication Ability: Effective [employer] Physical Education Teacher Required: No Beliefs That Will Affect Care: None marital status: Current Living Situation: Spouse current occupational status: retired Other Information That Helps Us Care for You: No Feels Safe at Home: Yes Safety Concerns: Feels Safe At This Time Assistive Devices: Cane, Glasses and Hearing Aid - Bilateral Review of Systems Review of Systems: unobtainable due to difficulty hearing Physical Exam Physical Exam: Elderly gentleman in no distress Constitutional: + thin Neck: trachea midline, no thyromegaly Respiratory: normal respiratory effort, lungs clear to auscultation Cardiovascular: Rate/Rhythm: regular rate Heart Sounds: + click (mechanical heart sound) Gastrointestinal (Abdomen): normal bowel sounds, soft, nontender, no hepatosplenomegaly Results & Data Vital Signs (Past 12 Hours) Vital Signs Temp Pulse Pulse Resp BP BP Pulse Ox 02/29/24 09:57 74 23 98 02/29/24 09:42 72 22 98 02/29/24 09:30 81 16 97 02/29/24 09:12 78 27 H 96 02/29/24 08:52 102/44 L 02/29/24 08:27 75 26 H 94 02/29/24 08:12 76 17 93 02/29/24 08:03 78 20 92 02/29/24 07:54 79 21 93 02/29/24 07:39 79 19 93 02/29/24 07:25 80 02/29/24 07:24 77 22 93 02/29/24 07:15 02/29/24 07:15 36.7 C 71 20 104/44 L 96 02/29/24 07:15 02/29/24 04:27 81 22 107/53 L 95 02/29/24 01:54 02/29/24 01:54 36.9 C 80 27 H 116/71 95 Pulse Ox O2 Del Method O2 Del Method 02/29/24 09:57 02/29/24 09:42 02/29/24 09:30 02/29/24 09:12 02/29/24 08:52 02/29/24 08:27 02/29/24 08:12 02/29/24 08:03 02/29/24 07:54 02/29/24 07:39 02/29/24 07:25 02/29/24 07:24 02/29/24 07:15 Room Air 02/29/24 07:15 Room Air 02/29/24 07:15 96 Room Air 02/29/24 04:27 Room Air 02/29/24 01:54 Room Air 02/29/24 01:54 Room Air Laboratory Results 02/29/24 02/29/24 02/28/24 Range/Units 04:13 02:03 22:46 WBC 3.40 L 3.71 L (4.8-10.8) K/ul RBC 3.00 L 3.02 L (4.70-6.10) M/uL Hgb 8.7 L 8.8 L (14.0-18.0) g/dl Hct 28.7 L 28.6 L (42.0-52.0) % MCV 95.7 94.7 (80.0-100.0) fL MCH 29.0 29.1 (25.0-34.0) pg MCHC 30.3 L 30.8 L (32.0-36.0) g/dL RDW Std Deviation 62.8 H 62.7 H (36.4-46.3) fL RDW Coeff of Nick 18.3 H 18.1 H (11.5-14.5) % Plt Count 129 L 136 (130-400) K/uL MPV 10.7 10.5 (9.4-12.4) fL Immature Gran % (Auto) 0.3 % Neut % (Auto) 67.6 % Lymph % (Auto) 11.5 % Dare % (Auto) 11.2 % Eos % (Auto) 8.5 % Baso % (Auto) 0.9 % Neut # (Auto) 2.30 (1.40-6.50) K/uL Lymph # (Auto) 0.39 L (1.20-3.40) K/uL Dare # (Auto) 0.38 (0.11-0.59) K/uL Eos # (Auto) 0.29 (0.00-0.50) K/uL Baso # (Auto) 0.03 (0.00-0.20) K/uL Immature Gran # (Auto) 0.01 (0.01-0.20) K/uL PT 26.6 H (9.0-12.0) Seconds INR 2.7 H (0.9-1.1) APTT (21-31) Seconds PTT Ratio Sodium 138 (136-145) mmol/L Potassium 4.8 (3.5-5.1) mmol/L Chloride 109 H (98-107) mmol/L Carbon Dioxide 22 (21-32) mmol/L Anion Gap 7 (3-11) BUN 48 H (6-23) mg/dl Creatinine 2.72 H (0.6-1.4) mg/dl Est Cr Clr Drug Dosing 22.4 ml/min Est GFR ( Amer) 24.8 ml/min Est GFR (Non-Af Amer) 21.4 ml/min BUN/Creatinine Ratio 17.6 (10-20) Glucose 93 (70-99(Fasting)) mg/dl Calcium 8.8 (8.6-10.3) mg/dl Magnesium 2.2 (1.7-2.4) mg/dl Total Bilirubin 0.7 (0.2-1.0) mg/dl AST 57 H (13-39) U/L ALT 11 (7-52) U/L Alkaline Phosphatase 36 (34-104) U/L Ammonia 34.0 (18-72) umol/L Troponin I High Sens 1797.0 H* 2119.2 H* (0-20) pg/ml Total Protein 7.2 (6.0-8.3) gm/dl Albumin 3.5 (3.4-5.0) gm/dl Globulin 3.7 (2.5-4.0) gm/dl Albumin/Globulin Ratio 0.9 (0.9-2) Urine Color Urine Appearance (Clear) Urine pH (4.5-7.5) Ur Specific [place] (1.000-1.030) Urine Protein (Negative) Urine Glucose (UA) (Negative) Urine Ketones (Negative) Urine Blood (Negative) Urine Nitrite (Negative) Urine Bilirubin (Negative) Urine Urobilinogen (Negative) Ur Leukocyte Esterase (Negative) Urine RBC (0-2) /hpf Urine WBC (0-5) /hpf Ur Epithelial Cells (0-2) /hpf Urine Bacteria (None Seen) Blood Type Blood Type Recheck O Negative Antibody Screen 02/28/24 02/28/24 02/28/24 Range/Units 19:20 18:46 18:39 WBC (4.8-10.8) K/ul RBC (4.70-6.10) M/uL Hgb (14.0-18.0) g/dl Hct (42.0-52.0) % MCV (80.0-100.0) fL MCH (25.0-34.0) pg MCHC (32.0-36.0) g/dL RDW Std Deviation (36.4-46.3) fL RDW Coeff of Nick (11.5-14.5) % Plt Count (130-400) K/uL MPV (9.4-12.4) fL Immature Gran % (Auto) % Neut % (Auto) % Lymph % (Auto) % Dare % (Auto) % Eos % (Auto) % Baso % (Auto) % Neut # (Auto) (1.40-6.50) K/uL Lymph # (Auto) (1.20-3.40) K/uL Dare # (Auto) (0.11-0.59) K/uL Eos # (Auto) (0.00-0.50) K/uL Baso # (Auto) (0.00-0.20) K/uL Immature Gran # (Auto) (0.01-0.20) K/uL PT (9.0-12.0) Seconds INR (0.9-1.1) APTT (21-31) Seconds PTT Ratio Sodium (136-145) mmol/L Potassium (3.5-5.1) mmol/L Chloride (98-107) mmol/L Carbon Dioxide (21-32) mmol/L Anion Gap (3-11) BUN (6-23) mg/dl Creatinine (0.6-1.4) mg/dl Est Cr Clr Drug Dosing ml/min Est GFR ( Amer) ml/min Est GFR (Non-Af Amer) ml/min BUN/Creatinine Ratio (10-20) Glucose (70-99(Fasting)) mg/dl Calcium (8.6-10.3) mg/dl Magnesium (1.7-2.4) mg/dl Total Bilirubin (0.2-1.0) mg/dl AST (13-39) U/L ALT (7-52) U/L Alkaline Phosphatase (34-104) U/L Ammonia 53.0 (18-72) umol/L Troponin I High Sens 2032.4 H* (0-20) pg/ml Total Protein (6.0-8.3) gm/dl Albumin (3.4-5.0) gm/dl Globulin (2.5-4.0) gm/dl Albumin/Globulin Ratio (0.9-2) Urine Color [place] Urine Appearance Slightly Cloudy (Clear) Urine pH 5.5 (4.5-7.5) Ur Specific [place] 1.020 (1.000-1.030) Urine Protein 2+ H (Negative) Urine Glucose (UA) Trace H (Negative) Urine Ketones Negative (Negative) Urine Blood 3+ H (Negative) Urine Nitrite Negative (Negative) Urine Bilirubin Negative (Negative) Urine Urobilinogen Negative (Negative) Ur Leukocyte Esterase Negative (Negative) Urine RBC >20 H (0-2) /hpf Urine WBC 6-10 H (0-5) /hpf Ur Epithelial Cells 3-5 H (0-2) /hpf Urine Bacteria 1+ H (None Seen) Blood Type Blood Type Recheck Antibody Screen 02/28/24 02/28/24 Range/Units 17:16 16:35 WBC 4.20 L (4.8-10.8) K/ul RBC 3.11 L (4.70-6.10) M/uL Hgb 9.2 L (14.0-18.0) g/dl Hct 29.3 L (42.0-52.0) % MCV 94.2 (80.0-100.0) fL MCH 29.6 (25.0-34.0) pg MCHC 31.4 L (32.0-36.0) g/dL RDW Std Deviation 62.2 H (36.4-46.3) fL RDW Coeff of Nick 18.4 H (11.5-14.5) % Plt Count 137 (130-400) K/uL MPV 10.2 (9.4-12.4) fL Immature Gran % (Auto) 0.5 % Neut % (Auto) 71.9 % Lymph % (Auto) 8.1 % Dare % (Auto) 10.5 % Eos % (Auto) 8.3 % Baso % (Auto) 0.7 % Neut # (Auto) 3.02 (1.40-6.50) K/uL Lymph # (Auto) 0.34 L (1.20-3.40) K/uL Dare # (Auto) 0.44 (0.11-0.59) K/uL Eos # (Auto) 0.35 (0.00-0.50) K/uL Baso # (Auto) 0.03 (0.00-0.20) K/uL Immature Gran # (Auto) 0.02 (0.01-0.20) K/uL PT 26.5 H (9.0-12.0) Seconds INR 2.7 H (0.9-1.1) APTT 42 H (21-31) Seconds PTT Ratio 1.6 Sodium 135 L (136-145) mmol/L Potassium 4.9 (3.5-5.1) mmol/L Chloride 107 (98-107) mmol/L Carbon Dioxide 20 L (21-32) mmol/L Anion Gap 8 (3-11) BUN 52 H (6-23) mg/dl Creatinine 2.98 H (0.6-1.4) mg/dl Est Cr Clr Drug Dosing 20.4 ml/min Est GFR ( Amer) 22.2 ml/min Est GFR (Non-Af Amer) 19.2 ml/min BUN/Creatinine Ratio 17.4 (10-20) Glucose 126 H (70-99(Fasting)) mg/dl Calcium 9.0 (8.6-10.3) mg/dl Magnesium (1.7-2.4) mg/dl Total Bilirubin 0.7 (0.2-1.0) mg/dl AST 62 H (13-39) U/L ALT 12 (7-52) U/L Alkaline Phosphatase 36 (34-104) U/L Ammonia (18-72) umol/L Troponin I High Sens 2254.0 H* (0-20) pg/ml Total Protein 7.8 (6.0-8.3) gm/dl Albumin 3.7 (3.4-5.0) gm/dl Globulin 4.1 H (2.5-4.0) gm/dl Albumin/Globulin Ratio 0.9 (0.9-2) Urine Color Urine Appearance (Clear) Urine pH (4.5-7.5) Ur Specific [place] (1.000-1.030) Urine Protein (Negative) Urine Glucose (UA) (Negative) Urine Ketones (Negative) Urine Blood (Negative) Urine Nitrite (Negative) Urine Bilirubin (Negative) Urine Urobilinogen (Negative) Ur Leukocyte Esterase (Negative) Urine RBC (0-2) /hpf Urine WBC (0-5) /hpf Ur Epithelial Cells (0-2) /hpf Urine Bacteria (None Seen) Blood Type O Negative Blood Type Recheck Antibody Screen NEGATIVE Diagnostic Findings Chest X-Ray 02/28/24 16:24 SINGLE VIEW CHEST CLINICAL HISTORY: Atypical chest pain. FINDINGS: 2 PA chest radiographs are compared to study dated 09/05/2023. The patient is status post midline sternotomy. The heart is enlarged but noting atherosclerotic calcification of the thoracic aorta. There is pulmonary vascular congestion with evidence of interstitial edema. There are small pleural effusions with dependent consolidation. No pneumothorax is seen. The skeletal structures are osteopenic. The bony thorax is grossly intact. Surgical clips are seen in the upper abdomen. IMPRESSION: 1. Cardiomegaly with evidence of congestive failure and mild pulmonary edema. Radiographic follow-up to resolution is recommended. 2. Small pleural effusions with dependent consolidation. ACT 112: Negative or not required by law. Electronically signed by: Fuad Almaraz M.D. 02/28/2024 5:04 PM
[2024-02-29] MEDS: FUROSEMIDE 40 MG/4 ML VIAL IV SCH (11:38)
--- NOTE | 2024-02-29 12:26 | Urology Consultation ---
Date of Consultation February 29, 2024 Assessment & Plan (1) Encephalopathy: (2) Acute UTI: (3) Urethral stricture: (4) Volume overload: (5) Prostate cancer: (6) Urinary retention: (7) Non-ST elevated myocardial infarction (non-STEMI): (8) Anemia in chronic kidney disease (CKD): (9) Chronic anticoagulation: Plan Patient postop day 4 status post dilation by Dr. Soto. Patient had significant issues with stricture volume overload significant chronic kidney disease. Patient has been dealing with increasing lethargy after the procedure. Had significant weakness had poor oral intake. Had been seen at an outlying facility. Concern for possible issues especially related to significant elevation of troponins. Had significant VINICIUS that had developed. Patient is going to be admitted to the hospital service is undergoing extensive monitoring. Has complicated urologic history with history of prostate cancer. Has been most recently dealing with stricture issues. Patient has catheter in place which appears to be draining clear yellow urine without major issues. Patient did state he had extremely poor oral intake over the last few days. Likely multifactorial issues for acute kidney injury on chronic kidney disease. Patient is being admitted to the medicine service with close monitoring and possible further evaluation. Is going to be evaluated by cardiology. Patient complicated medical and surgical history was reviewed and surmise above. All imaging was reviewed interpreted by myself. Chest imaging had shown pulmonary edema and pleural effusions. Labs are also reviewed. Creatinine is down to 2.72. White count is decreased to 3.40. Troponins are markedly elevated. Hemoglobin came back at 8.7. Patient's current vital still are showing mild hypotension. No significant tachycardia. No significant fever. Is satting 95% on room air. Patient was having diet this morning. He is dealing with significant weakness and lethargy. Will plan to continue to monitor closely. Will await medical workup. Will continue to monitor creatinine over time to see if it improves with hydration. Will plan to maintain catheter with close monitoring of drainage. History of Present Illness Attending Physician: Dennis Pan MD History of Present Illness Consult for urinary issues with incomplete emptying problems was found to have a significant stricture and underwent a balloon dilation with Dr. Soto. Has been dealing with weakness. Had ill feelings which caused him to present to the ER. Patient has mild to moderate discomfort in pelvis and groin going to back and side in waves. Is dealing with acute illness. Has been having increasing lethargy. Was seen at an outlying facility ER but there was no beds available. The patient's family took him over did not need for further evaluation due to the elevated creatinine. Has significant weakness and has been slowly recovering from the surgical intervention. Has been deconditioned from this. Has decreased mobility significantly with acute issues. Patient has not had complete return to normal bowel function. Has had significant issues with stricture and urinary issues in the past. Denies bleeding with catheter in. Cath does appear to be draining well. Has had significant decrease in oral intake and dehydration. No severe nausea or vomiting. Currently no fevers. Discussed with patient multifactorial nature. Significant VINICIUS on CKD. Multiple comorbidities. Also had a significant elevation in his troponin level. Is undergoing admission with the hospitalist team for close evaluation. Allergies Allergy/AdvReac Type Severity Reaction Status Date / Time plasma protein fraction Allergy Severe FROZEN Verified 02/28/24 18:35 PLASMA-- DEVELOPED HIVES Home Medications Medication Instructions Recorded Confirmed Type amiodarone 200 mg tablet 100 mg PO QAM 10/07/22 02/28/24 History cholecalciferol (vitamin D3) 50 50 mcg PO QPM 10/07/22 02/28/24 History mcg (2,000 unit) capsule clonazepam 0.5 mg tablet 0.5 mg PO DAILY PRN Anxiety 10/07/22 02/28/24 History fenofibric acid (choline) 135 mg 135 mg PO QAM 10/07/22 02/28/24 History capsule,delayed release hydrocortisone acetate 1 % topical 1 applic topical BID PRN Skin 10/07/22 02/28/24 History cream Irritation aripiprazole 2 mg tablet (Abilify) 2 mg PO QAM 11/14/22 02/28/24 History sertraline 100 mg tablet 100 mg PO QPM 11/25/22 02/28/24 History tamsulosin 0.4 mg capsule 0.8 mg PO QPM 11/25/22 02/28/24 History ferrous fumarate-vitamin C 66 1 tab PO 3XWK ##0 08/08/23 02/28/24 History mg-125 mg chewable tablet warfarin 2 mg tablet 3 mg PO DAILY 08/08/23 02/28/24 History cyanocobalamin (vitamin B-12) 1,000 mcg PO DAILY 08/31/23 02/28/24 History 1,000 mcg tablet (Vitamin B-12) levothyroxine 75 mcg tablet 75 mcg PO QAM 08/31/23 02/28/24 History (Synthroid) furosemide 40 mg tablet 40 mg PO QAM #30 tabs 09/12/23 02/28/24 Rx pantoprazole 40 mg tablet,delayed 40 mg PO BID #60 tabs 09/12/23 02/28/24 Rx release Prevagen 30 mg PO DAILY 01/22/24 02/28/24 History Lactobacillus rhamnosus-Bifidobac. 1 cap PO QAM 01/22/24 02/28/24 History animalis 3 billion cell capsule ([facility]) lactulose 10 gram/15 mL oral syrup 30 g PO TID 01/22/24 02/28/24 History ondansetron 4 mg disintegrating 4 mg PO Q6H PRN Nausea And Vomiting 02/28/24 02/28/24 History tablet Patient History Medical History Chronic kidney disease Hypothyroidism Hx of aortic aneurysm ascending aortic aneurysm s/p dissection 05/2019 and subsequent repair of aortic root (28mm Gelweave graft) Failure to thrive in adult admission [facility] 08/31/23-09/12/23. pt's states that he has improved slightly since d/c (he has also since had an admission to [facility] since that time per ; unknown dx) Thrombocytopenia Prostate CA XRT 2020; Rezum 12/05/22 Dementia pt had significant confusion during 09/2023 admission [facility]; states that he is 'much better' at home. she also notes increased confusion after General Anesthesia GERD (gastroesophageal reflux disease) Portal hypertension Diabetes type 2, controlled metformin d/c during [facility] admission 2/2 hypoglycemia (pt has been having GI issues and has not been eating normal diet) Cirrhosis follows with GI Anemia pt's reports ongoing rectal bleeding (GI is aware) since XRT for prostate Ca; pt takes iron supplement; recent iron infusions and procrit injections (02/12/24 and will have another on 02/19/24) Generalized weakness uses cane to ambulate Urinary tract infection recurrent; follows with urology Nausea & vomiting current sx; following with GI CHF (congestive heart failure) follows with [facility] Osteoarthritis Anxiety Hypertension meds reduced during 09/2023 [facility] admission 2/2 hypotension Suspected sleep apnea unaware History of COVID-19 x2 ; 10/2022 most recent (pt was asymptomatic); no ongoing sx History of fractured vertebra Cervical fracture 11/18/21- medical management recommended, follows with physical therapy, "full ROM" per patient Surgical History History of endoscopy capsule endoscopy History of flexible sigmoidoscopy History of colonoscopy History of cholecystectomy History of appendectomy History of prostate surgery multiple; most recent Rezum 12/05/22: MAC without issue History of aortic aneurysm repair 05/2021 in [facility] Follows with [facility] Family History Mother Diabetes Hypertension Father Diabetes Other No family history of adverse response to anesthesia Social History Smoking Status: Never smoker Second Hand Exposure: No; Do You Dip or Chew Tobacco: No; Hx Alcohol Use: No Hx Substance Use: No Preferred Language: Lao Communication Ability: Effective Production Consultant Required: No Beliefs That Will Affect Care: None marital status: Current Living Situation: Spouse current occupational status: retired Other Information That Helps Us Care for You: No Feels Safe at Home: Yes Safety Concerns: Feels Safe At This Time Assistive Devices: Cane, Glasses and Hearing Aid - Bilateral Review of Systems Review of Systems: All systems reviewed & are unremarkable except as noted in HPI & below Physical Exam Physical Exam: General: Alert and oriented x 3 in no acute distress. Patient with lethargy. Advanced age multiple comorbidities. HEENT: Normocephalic Atraumatic. Inspection normal. Cranial Nerves 2-12 Grossly intact. Nares are clear. Neck is supple. Normal inspection of face. Normal inspection of neck. Neurologic: No deficits on inspection. Baseline for motor function and sensory. Psychologic: Normal affect. Respiratory: Nonlabored. No use of accessory muscles. No tachypnea or dyspnea. Cardiovascular: No tachycardia Skin: [place] and Dry. No rashes or visible lesions. Extremities: Moving without issues. No motor deficits on inspection Lymphatics: Moderate edema Abdomen: Soft moderate distended. No rebound or guarding. : Duran in place draining clear yellow urine Results & Data Vital Signs (Past 12 Hours) Vital Signs Temp Pulse Pulse Resp BP BP Pulse Ox 02/29/24 11:32 67 19 102/57 L 95 02/29/24 09:57 74 23 98 02/29/24 09:42 72 22 98 02/29/24 09:30 81 16 97 02/29/24 09:12 78 27 H 96 02/29/24 08:52 102/44 L 02/29/24 08:27 75 26 H 94 02/29/24 08:12 76 17 93 02/29/24 08:03 78 20 92 02/29/24 07:54 79 21 93 02/29/24 07:39 79 19 93 02/29/24 07:25 80 02/29/24 07:24 77 22 93 02/29/24 07:15 02/29/24 07:15 36.7 C 71 20 104/44 L 96 02/29/24 07:15 02/29/24 04:27 81 22 107/53 L 95 02/29/24 01:54 02/29/24 01:54 36.9 C 80 27 H 116/71 95 Pulse Ox O2 Del Method O2 Del Method 02/29/24 11:32 Room Air 02/29/24 09:57 02/29/24 09:42 02/29/24 09:30 02/29/24 09:12 02/29/24 08:52 02/29/24 08:27 02/29/24 08:12 02/29/24 08:03 02/29/24 07:54 02/29/24 07:39 02/29/24 07:25 02/29/24 07:24 02/29/24 07:15 Room Air 02/29/24 07:15 Room Air 02/29/24 07:15 96 Room Air 02/29/24 04:27 Room Air 02/29/24 01:54 Room Air 02/29/24 01:54 Room Air PG Care Time/CCT Total # of Minutes Spent Total Time Spent with Patient: Total time spent is greater than 50% in coordination of care (as documented) at patient's floor/unit and/or counseling patient: Coding Level of Care Code 24111 INT INP/OBS CARE 3/75MIN Diagnoses Encephalopathy G93.40 Acute UTI N39.0 Urethral stricture N35.919 Volume overload E87.70 Prostate cancer C61 Urinary retention R33.9 Non-ST elevated myocardial infarction (non-STEMI) I21.4 Anemia in chronic kidney disease (CKD) N18.9; D63.1 Chronic anticoagulation Z79.01
--- NOTE | 2024-02-29 12:29 | Cardiology Consultation ---
Date of Consultation February 29, 2024 Assessment & Plan (1) Non-ST elevated myocardial infarction (non-STEMI): (2) Rectal bleeding: (3) Hx of aortic valve replacement, mechanical: (4) Hx of aortic aneurysm: (5) Chronic anticoagulation: Plan Given he is having ongoing rectal bleeding, I would consider holding his anticoagulation with warfarin and getting him subcutaneous Lovenox milligram per kilogram every 12 hours to bridge if it is felt that he needs to have a colonoscopy or further GI evaluation. I suspect that the non-STEMI is a demand ND related to possible sepsis hypotension as well as the anemia. Ideally would try to keep his hemoglobin above 8-9 for best myocardial performance. Will have to see if we can track down any old cardiovascular records to see what his coronary status is. Given that he had 2 heart surgeries and there is no mention of bypass or other interventions I suspect that he has had normal coronary arteries. The etiology of his tricuspid regurgitation is not completely clear but his pulmonary artery pressures on the echo did not appear to be significantly elevated. Would continue his amiodarone for now. Hold his Lasix for now. Until we sort out who his usual clearance diver is [facility] vascular group will continue to follow him here at [facility]. Please contact me if there are any other questions or concerns. History of Present Illness Reason for Consultation: Positive cardiac enzymes Attending Physician: Dennis Pan MD History of Present Illness Thank you for the cardiology consult on Mr. Maicol Jarquin. As you know he is a 79-year-old gentleman who has a mechanical [place] aortic valve replacement which he claims was placed in [place] approximately 30 years ago. He is on chronic anticoagulation with Coumadin. On his history it is also documented that he underwent aortic aneurysm repair in either 2018 or 2020. Apparently he was in [facility] and they did not have beds available and he was transferred here for further evaluation.The patient presents to the emergency department after family brought him from the emergency department at [facility], where he was initially being held in the emergency department, where he was assessed for inpatient admission on 02/25, but no beds became available. He had been seen by urology at [facility] on 02/24, undergoing a cystoscopy with balloon urethral dilatation and was discharged with a Duran catheter in place. Family notes that the patient become confused and had a low blood pressure, and was brought to the ED at [facility] for assessment. There he received ceftriaxone IV, received IV fluids, and was transfused 1 unit PRBCs for hemoglobin of 7.7. He was noted to have elevated troponin, of 5081, which ultimately trended downward to 3848 and then 3355. Patient's family brought into the emergency department about [place], where he is referred to the [facility] service for admission. Initially his symptoms were shortness of breath, fatigue, and slowly improving confusion. Family reports that the patient was noted to have fluid in one of his lungs. He was seen in the emergency room in [place]. He was resting comfortably and appears to be in no apparent distress. He is not a good historian and cannot clarify details of his cardiovascular history. Currently he denies chest discomfort or shortness of breath. His echo was reviewed today and shows low normal ejection fraction at 50%. There is a septal wall motion abnormality which is consistent with his postoperative state. His aortic valve prosthesis appears to be opening and closing normally. There is no significant restriction and there is trace what would be considered to be physiologic aortic insufficiency. He does have severe tricuspid regurgitation however with a dilated right heart. His EKG shows normal sinus rhythm there is an anteroseptal ND which appears similar to his prior EKGs which we have available. His home medications are noted below. He is currently on amiodarone and I am assuming this is for paroxysmal atrial fibrillation. I attempted to call his Natalie to clarify details of his medical history but was unable to reach her. He is unable to tell me who his usual clearance diver is but it appears that he may follow-up with somebody in [place]. Allergies Allergy/AdvReac Type Severity Reaction Status Date / Time plasma protein fraction Allergy Severe FROZEN Verified 02/28/24 18:35 PLASMA-- DEVELOPED HIVES Home Medications Medication Instructions Recorded Confirmed Type amiodarone 200 mg tablet 100 mg PO QAM 10/07/22 02/28/24 History cholecalciferol (vitamin D3) 50 50 mcg PO QPM 10/07/22 02/28/24 History mcg (2,000 unit) capsule clonazepam 0.5 mg tablet 0.5 mg PO DAILY PRN Anxiety 10/07/22 02/28/24 History fenofibric acid (choline) 135 mg 135 mg PO QAM 10/07/22 02/28/24 History capsule,delayed release hydrocortisone acetate 1 % topical 1 applic topical BID PRN Skin 10/07/22 02/28/24 History cream Irritation aripiprazole 2 mg tablet (Abilify) 2 mg PO QAM 11/14/22 02/28/24 History sertraline 100 mg tablet 100 mg PO QPM 11/25/22 02/28/24 History tamsulosin 0.4 mg capsule 0.8 mg PO QPM 11/25/22 02/28/24 History ferrous fumarate-vitamin C 66 1 tab PO 3XWK ##0 08/08/23 02/28/24 History mg-125 mg chewable tablet warfarin 2 mg tablet 3 mg PO DAILY 08/08/23 02/28/24 History cyanocobalamin (vitamin B-12) 1,000 mcg PO DAILY 08/31/23 02/28/24 History 1,000 mcg tablet (Vitamin B-12) levothyroxine 75 mcg tablet 75 mcg PO QAM 08/31/23 02/28/24 History (Synthroid) furosemide 40 mg tablet 40 mg PO QAM #30 tabs 09/12/23 02/28/24 Rx pantoprazole 40 mg tablet,delayed 40 mg PO BID #60 tabs 09/12/23 02/28/24 Rx release Prevagen 30 mg PO DAILY 01/22/24 02/28/24 History Lactobacillus rhamnosus-Bifidobac. 1 cap PO QAM 01/22/24 02/28/24 History animalis 3 billion cell capsule ([facility]) lactulose 10 gram/15 mL oral syrup 30 g PO TID 01/22/24 02/28/24 History ondansetron 4 mg disintegrating 4 mg PO Q6H PRN Nausea And Vomiting 02/28/24 02/28/24 History tablet Patient History Medical History Chronic kidney disease Hypothyroidism Hx of aortic aneurysm ascending aortic aneurysm s/p dissection 05/2019 and subsequent repair of aortic root (28mm Gelweave graft) Failure to thrive in adult admission [facility] 08/31/23-09/12/23. pt's states that he has improved slightly since d/c (he has also since had an admission to [facility] since that time per ; unknown dx) Thrombocytopenia Prostate CA XRT 2020; Rezum 12/05/22 Dementia pt had significant confusion during 09/2023 admission [facility]; states that he is 'much better' at home. she also notes increased confusion after General Anesthesia GERD (gastroesophageal reflux disease) Portal hypertension Diabetes type 2, controlled metformin d/c during [facility] admission 2/2 hypoglycemia (pt has been having GI issues and has not been eating normal diet) Cirrhosis follows with GI Anemia pt's reports ongoing rectal bleeding (GI is aware) since XRT for prostate Ca; pt takes iron supplement; recent iron infusions and procrit injections (02/12/24 and will have another on 02/19/24) Generalized weakness uses cane to ambulate Urinary tract infection recurrent; follows with urology Nausea & vomiting current sx; following with GI CHF (congestive heart failure) follows with [facility] Osteoarthritis Anxiety Hypertension meds reduced during 09/2023 [facility] admission 2/2 hypotension Suspected sleep apnea unaware History of COVID-19 x2 ; 10/2022 most recent (pt was asymptomatic); no ongoing sx History of fractured vertebra Cervical fracture 11/18/21- medical management recommended, follows with physical therapy, "full ROM" per patient Surgical History History of endoscopy capsule endoscopy History of flexible sigmoidoscopy History of colonoscopy History of cholecystectomy History of appendectomy History of prostate surgery multiple; most recent Rezum 12/05/22: MAC without issue History of aortic aneurysm repair 05/2021 in [facility] Follow[facility] with [facility] Family History Mother Diabetes Hypertension Father Diabetes Other No family history of adverse response to anesthesia Social History Smoking Status: Never smoker Second Hand Exposure: No; Do You Dip or Chew Tobacco: No; Hx Alcohol Use: No Hx Substance Use: No Preferred Language: Barbadian Communication Ability: Effective Commanding Officer Traffic Division Required: No Beliefs That Will Affect Care: None marital status: Current Living Situation: Spouse current occupational status: retired Other Information That Helps Us Care for You: No Feels Safe at Home: Yes Safety Concerns: Feels Safe At This Time Assistive Devices: Cane, Glasses and Hearing Aid - Bilateral Review of Systems Review of Systems: All systems reviewed & are unremarkable except as noted in HPI & below Respiratory: as per Subjective / HPI Cardiovascular: as per Subjective / HPI Physical Exam Physical Exam: He is comfortable in bed appears in no apparent distress Constitutional: WD/WN, vitals as above Respiratory: Decreased breath sounds on the left there are coarse breath sounds Cardiovascular: CRISP mechanical valve sounds are appreciated. There was no aortic insufficiency identified this valve sound is consistent with a normal functioning mechanical AVR. Results & Data Vital Signs (Past 12 Hours) Vital Signs Temp Pulse Pulse Resp BP BP Pulse Ox 02/29/24 11:32 67 19 102/57 L 95 02/29/24 09:57 74 23 98 02/29/24 09:42 72 22 98 02/29/24 09:30 81 16 97 02/29/24 09:12 78 27 H 96 02/29/24 08:52 102/44 L 02/29/24 08:27 75 26 H 94 02/29/24 08:12 76 17 93 02/29/24 08:03 78 20 92 02/29/24 07:54 79 21 93 02/29/24 07:39 79 19 93 02/29/24 07:25 80 02/29/24 07:24 77 22 93 02/29/24 07:15 02/29/24 07:15 36.7 C 71 20 104/44 L 96 02/29/24 07:15 02/29/24 04:27 81 22 107/53 L 95 02/29/24 01:54 02/29/24 01:54 36.9 C 80 27 H 116/71 95 Pulse Ox O2 Del Method O2 Del Method 02/29/24 11:32 Room Air 02/29/24 09:57 02/29/24 09:42 02/29/24 09:30 02/29/24 09:12 02/29/24 08:52 02/29/24 08:27 02/29/24 08:12 02/29/24 08:03 02/29/24 07:54 02/29/24 07:39 02/29/24 07:25 02/29/24 07:24 02/29/24 07:15 Room Air 02/29/24 07:15 Room Air 02/29/24 07:15 96 Room Air 02/29/24 04:27 Room Air 02/29/24 01:54 Room Air 02/29/24 01:54 Room Air Laboratory Results Abnormal lab results 02/28/24 02/28/24 02/28/24 Range/Units 16:35 18:39 19:20 WBC 4.20 L (4.8-10.8) K/ul RBC 3.11 L (4.70-6.10) M/uL Hgb 9.2 L (14.0-18.0) g/dl Hct 29.3 L (42.0-52.0) % MCHC 31.4 L (32.0-36.0) g/dL RDW Std Deviation 62.2 H (36.4-46.3) fL RDW Coeff of Nick 18.4 H (11.5-14.5) % Plt Count (130-400) K/uL Lymph # (Auto) 0.34 L (1.20-3.40) K/uL PT 26.5 H (9.0-12.0) Seconds INR 2.7 H (0.9-1.1) APTT 42 H (21-31) Seconds Sodium 135 L (136-145) mmol/L Chloride (98-107) mmol/L Carbon Dioxide 20 L (21-32) mmol/L BUN 52 H (6-23) mg/dl Creatinine 2.98 H (0.6-1.4) mg/dl Glucose 126 H (70-99(Fasting)) mg/dl AST 62 H (13-39) U/L Troponin I High Sens 2254.0 H* 2032.4 H* (0-20) pg/ml Globulin 4.1 H (2.5-4.0) gm/dl Urine Protein 2+ H (Negative) Urine Glucose (UA) Trace H (Negative) Urine Blood 3+ H (Negative) Urine RBC >20 H (0-2) /hpf Urine WBC 6-10 H (0-5) /hpf Ur Epithelial Cells 3-5 H (0-2) /hpf Urine Bacteria 1+ H (None Seen) 02/28/24 02/29/24 02/29/24 Range/Units 22:46 02:03 04:13 WBC 3.71 L 3.40 L (4.8-10.8) K/ul RBC 3.02 L 3.00 L (4.70-6.10) M/uL Hgb 8.8 L 8.7 L (14.0-18.0) g/dl Hct 28.6 L 28.7 L (42.0-52.0) % MCHC 30.8 L 30.3 L (32.0-36.0) g/dL RDW Std Deviation 62.7 H 62.8 H (36.4-46.3) fL RDW Coeff of Nick 18.1 H 18.3 H (11.5-14.5) % Plt Count 129 L (130-400) K/uL Lymph # (Auto) 0.39 L (1.20-3.40) K/uL PT 26.6 H (9.0-12.0) Seconds INR 2.7 H (0.9-1.1) APTT (21-31) Seconds Sodium (136-145) mmol/L Chloride 109 H (98-107) mmol/L Carbon Dioxide (21-32) mmol/L BUN 48 H (6-23) mg/dl Creatinine 2.72 H (0.6-1.4) mg/dl Glucose (70-99(Fasting)) mg/dl AST 57 H (13-39) U/L Troponin I High Sens 2119.2 H* 1797.0 H* (0-20) pg/ml Globulin (2.5-4.0) gm/dl Urine Protein (Negative) Urine Glucose (UA) (Negative) Urine Blood (Negative) Urine RBC (0-2) /hpf Urine WBC (0-5) /hpf Ur Epithelial Cells (0-2) /hpf Urine Bacteria (None Seen) 02/29/24 Range/Units 10:46 WBC (4.8-10.8) K/ul RBC (4.70-6.10) M/uL Hgb (14.0-18.0) g/dl Hct (42.0-52.0) % MCHC (32.0-36.0) g/dL RDW Std Deviation (36.4-46.3) fL RDW Coeff of Nick (11.5-14.5) % Plt Count (130-400) K/uL Lymph # (Auto) (1.20-3.40) K/uL PT (9.0-12.0) Seconds INR (0.9-1.1) APTT (21-31) Seconds Sodium (136-145) mmol/L Chloride (98-107) mmol/L Carbon Dioxide (21-32) mmol/L BUN (6-23) mg/dl Creatinine (0.6-1.4) mg/dl Glucose (70-99(Fasting)) mg/dl AST (13-39) U/L Troponin I High Sens 1427.5 H* D (0-20) pg/ml Globulin (2.5-4.0) gm/dl Urine Protein (Negative) Urine Glucose (UA) (Negative) Urine Blood (Negative) Urine RBC (0-2) /hpf Urine WBC (0-5) /hpf Ur Epithelial Cells (0-2) /hpf Urine Bacteria (None Seen) ECG Additional Comments: Normal sinus rhythm age-indeterminate anterior ND. His EKG is similar to the prior EKG from back in August
--- NOTE | 2024-02-29 14:03 | Hospitalist Progress Note ---
Date of Service February 29, 2024 Assessment & Plan (1) Hypotension: Plan: Probably hemorrhagic shock on admission. Now resolved. No definite evidence of sepsis. Urine culture is negative. Blood cultures pending. Continue Rocephin, day 2, until final results are known. (2) Encephalopathy: Plan: Present on admission. Probably metabolic associated with hypotension. Now resolved. Supportive care (3) Pulmonary edema: Plan: Acute diastolic CHF present on admission. Now on intravenous Lasix. Monitor intake and output. Fortunately he is on room air. Serial chest x-ray. Cardiac echo noted (4) Urethral stricture: Plan: Recent dilatation with placement of Duran catheter. He states he had some hematuria previously but no gross hematuria at this time. Urology consultation and recommendations appreciated (5) Elevated troponin: Plan: Appears to be demand ischemia. No regional wall motion abnormality seen on cardiac echo. No current evidence of ACS (6) Indwelling Duran catheter present: Plan: Recently placed after urethral stricture dilatation. Urology consultation and recommendations appreciated (7) Gross hematuria: Plan: Now resolved. Between hematuria and rectal bleeding, this explains the presence of the acute blood loss anemia. (8) Rectal bleeding: Plan: Now resolved. GI consultation appreciated. No colonoscopy at this moment. He received 1 unit packed red blood cells for hemoglobin 7.7 on admission. (9) Sepsis: Plan: Doubtful. Urine culture is negative. Blood culture final results pending. Continue Rocephin for now, day 2 (10) Acute kidney injury superimposed on CKD: Plan: Chronic kidney disease stage III. Monitor intake and output. Duran catheter is in place. Creatinine has improved from 3.8 down to 2.7. Serial labs (11) Acute UTI: Plan: Ruled out. Urine culture negative (12) Anemia: Plan: Acute blood loss anemia from rectal bleeding and hematuria present on admission. He received 1 unit packed red blood cells to date. Serial labs ordered (13) Hx of aortic valve replacement, mechanical: Plan: [place] mechanical aortic valve in place. Continue Coumadin anticoagulation. Normal function per cardiac echo report. Plan OT and PT assessments will be ordered when appropriate. To be determined Admission and Anticipated Discharge Date Admission Date: February 28, 2024 Subjective Alert. No distress. Very hard of hearing. Hemoglobin was 7.7 on admission. He received 1 unit packed red blood cells with hemoglobin improving to 9.2 and now 8.7. Serial labs ordered. Shock on admission was probably hemorrhagic. Urine culture is negative. Blood cultures pending. He remains on Rocephin until we know for sure. Cardiac echo reveals ejection fraction of 50 to 55% with moderate right ventricular enlargement with mild right ventricular systolic dysfunction. Moderate left and right atrial enlargement. Normally functioning mechanical [place] aortic valve. Severe TR. Diastolic dysfunction. Lasix 40 mg IV every 12 hours ordered for CHF present on admission. Will gauge response and adjust Lasix accordingly. Fortunately, he remains on room air. He recently underwent urethral stricture dilatation and has a Duran catheter in place. No gross hematuria at this time. Urology consultation requested. GI consultation also reviewed and appreciated. No colonoscopy at this moment. Creatinine 3.8 on admission has improved down to 2.7. Will follow. Review of Systems 2 Review of Systems: Constitutionalno fever or chills ENTno blurred vision, no double vision, no epistaxis, no sore throat Respiratoryno cough, no wheezing, no shortness of breath Cardiacno palpitations, no chest pain, no syncope Robina nausea, vomiting, diarrhea, melena, hematochezia GUFoley catheter in place. Recent placement after urethral stricture dilatation several days ago. No current gross hematuria but he did notice some recent hematuria Musculoskeletalno joint pain, no muscle tenderness Skinno bruising, no rashes, no pruritus Neurogeneralized weakness. No paresthesia Psychno depression, no anxiety Physical Exam 2 Physical Exam: General-alert and oriented x3, no fever, no chills. Hard of hearing HEENT-head atraumatic and normocephalic, pupils equal and reactive to light, extraocular muscles intact. Hard of hearing Neck-no lymphadenopathy or thyromegaly, trachea midline Chest-clear to auscultation. No rales, wheezing or rhonchi Cardiac-regular rate and rhythm, normal S1 and S2. Systolic valve click Abdomen-normal bowel sounds, no hepatosplenomegaly GUFoley catheter in place. No gross hematuria seen. Extremities-no cyanosis, clubbing, or edema Neuro-cranial nerves II through XII intact, motor and sensory function within normal limits, strength symmetrical with generalized weakness, no focal deficits Psych-normal affect, normal mood Results & Data Results & Data Vital Signs (Past 12 Hours) Vital Signs Temp Pulse Pulse Resp BP BP Pulse Ox 02/29/24 13:01 02/29/24 12:30 71 19 101/57 L 94 02/29/24 11:32 67 19 102/57 L 95 02/29/24 09:57 74 23 98 02/29/24 09:42 72 22 98 02/29/24 09:30 81 16 97 02/29/24 09:12 78 27 H 96 02/29/24 08:52 102/44 L 02/29/24 08:27 75 26 H 94 02/29/24 08:12 76 17 93 02/29/24 08:03 78 20 92 02/29/24 07:54 79 21 93 02/29/24 07:39 79 19 93 02/29/24 07:25 80 02/29/24 07:24 77 22 93 02/29/24 07:15 02/29/24 07:15 36.7 C 71 20 104/44 L 96 02/29/24 07:15 02/29/24 04:27 81 22 107/53 L 95 Pulse Ox O2 Del Method O2 Del Method 02/29/24 13:01 Room Air 02/29/24 12:30 02/29/24 11:32 Room Air 02/29/24 09:57 02/29/24 09:42 02/29/24 09:30 02/29/24 09:12 02/29/24 08:52 02/29/24 08:27 02/29/24 08:12 02/29/24 08:03 02/29/24 07:54 02/29/24 07:39 02/29/24 07:25 02/29/24 07:24 02/29/24 07:15 Room Air 02/29/24 07:15 Room Air 02/29/24 07:15 96 Room Air 02/29/24 04:27 Room Air Laboratory Results 02/29/24 04:13 02/29/24 04:13 PG Care Time/CCT Total # of Minutes Spent Total Time Spent with Patient: Total time spent is greater than 50% in coordination of care (as documented) at patient's floor/unit and/or counseling patient: Coding Level of Care Code 99636 SUB INP/OBS CARE 3/50MIN Diagnoses Hypotension I95.9 Encephalopathy G93.40 Pulmonary edema J81.1 Urethral stricture N35.919 Elevated troponin R79.89 Indwelling Duran catheter present Z97.8 Gross hematuria R31.0 Rectal bleeding K62.5 Sepsis A41.9 Acute kidney injury superimposed on CKD N17.9; N18.9 Acute UTI N39.0 Anemia D64.9 Anemia type: unspecified type Hx of aortic valve replacement, mechanical Z95.2 (12) Anemia Anemia type: unspecified type Qualified Code(s): D64.9 - Anemia, unspecified
[2024-02-29 15:22] LABS: Hematocrit (blood only) 30.3 % (42.0-52.0); Hemoglobin 9.1 g/dl (14.0-18.0); Mean Corpuscular Volume 96.5 fL (80.0-100.0); Mean Platelet Volume 11.1 fL (9.4-12.4); Platelet Count 130 K/uL (130-400); RDW Coefficient of Variation 18.3 % (11.5-14.5); RDW Standard Deviation 63.8 fL (36.4-46.3); Red Blood Count 3.14 M/uL (4.70-6.10); White Blood Count 2.94 K/ul (4.8-10.8)
[2024-02-29] MEDS: WARFARIN SOD 3 MG TAB PO SCH (15:48)
[2024-02-29] MEDS: cefTRIAXone SODIUM 2,000 MG/50 ML BAG IV SCH (15:48)
[2024-02-29 19:56] LABS: Hematocrit (blood only) 26.9 % (42.0-52.0); Hemoglobin 8.2 g/dl (14.0-18.0); Mean Corpuscular Hgb Conc 30.5 g/dL (32.0-36.0); Mean Corpuscular Volume 95.1 fL (80.0-100.0); Mean Platelet Volume 10.1 fL (9.4-12.4); Platelet Count 112 K/uL (130-400); RDW Coefficient of Variation 18.2 % (11.5-14.5); Red Blood Count 2.83 M/uL (4.70-6.10); White Blood Count 2.53 K/ul (4.8-10.8)
[2024-03-01 03:01] LABS: Basophils # (auto) 0.02 K/uL (0.00-0.20); Basophils % (auto) 0.9 %; Eosinophils # (auto) 0.23 K/uL (0.00-0.50); Eosinophils % (auto) 10.6 %; Hematocrit (blood only) 25.5 % (42.0-52.0); Lymphocytes # (auto) 0.29 K/uL (1.20-3.40); Lymphocytes % (auto) 13.3 %; Mean Corpuscular Hemoglobin 29.1 pg (25.0-34.0); Mean Corpuscular Hgb Conc 31.4 g/dL (32.0-36.0); Mean Corpuscular Volume 92.7 fL (80.0-100.0); Mean Platelet Volume 10.8 fL (9.4-12.4); Monocytes # (auto) 0.28 K/uL (0.11-0.59); Monocytes % (auto) 12.8 %; Neutrophils # (auto) 1.36 K/uL (1.40-6.50); Neutrophils % (auto) 62.4 %; Platelet Count 111 K/uL (130-400); RDW Coefficient of Variation 18.2 % (11.5-14.5); Red Blood Count 2.75 M/uL (4.70-6.10); White Blood Count 2.18 K/ul (4.8-10.8)
[2024-03-01 03:14] LABS: INR 2.6 (0.9-1.1); Prothrombin Time 25.7 Seconds (9.0-12.0)
[2024-03-01 03:21] LABS: Albumin Level 3.2 gm/dl (3.4-5.0); BUN Creatinine Ratio 17.4 (10-20); Bilirubin,Total 0.6 mg/dl (0.2-1.0); Calcium 8.5 mg/dl (8.6-10.3); Creatinine Clr Calc Pharmacy 24.6 ml/min; Est GFR (African American) 27.9 ml/min; Est GFR (Non-African American) 24.1 ml/min; Globulin 3.3 gm/dl (2.5-4.0); Potassium 4.5 mmol/L (3.5-5.1); Total Protein 6.5 gm/dl (6.0-8.3)
--- NOTE | 2024-03-01 08:26 | Cardiology Progress Note ---
Date of Service March 01, 2024 Assessment & Plan (1) Non-ST elevated myocardial infarction (non-STEMI): (2) Rectal bleeding: (3) Hx of aortic valve replacement, mechanical: (4) Hx of aortic aneurysm: (5) Chronic anticoagulation: Plan Given he is having ongoing rectal bleeding, I would consider holding his warfarin and giving him subcutaneous Lovenox 1 milligram per kilogram every 12 hours to bridge if colonoscopy becomes necessary although at this time that does not sound like it is in the plan. The non-STEMI is likely secondary to demand in the setting of hypovolemia and anemia. His hgb should be kept above 8-9 given his cardiac history. No WMA on echo and LV is on the low side of normal. Continue amiodarone, sinus rhythm on the monitor. Blood pressures have been soft so his Lasix is on hold. His kidney function is not too far off of his baseline at this point. His fluid balance will need to be watched closely given his severe TR and grade III DD. His usual billiard player is a [facility] physician but he does not know his name. [facility] will continue to follow him here at [facility]. Admission and Anticipated Discharge Date Admission Date: February 28, 2024 Subjective Mr. Jarquin denies any sob or chest pain. He does note "I have something in my chest" like fluid. He appears comfortable. Sinus rhythm on the monitor. Review of Systems Review of Systems: All systems reviewed & are unremarkable except as noted in HPI & below Physical Exam Constitutional: WD/WN, vitals as above Respiratory: normal respiratory effort, lungs clear to auscultation Cardiovascular: Rate/Rhythm: regular rate and regular rhythm Heart Sounds: + click and + murmur (3/6 systolic) Extremities: no edema Results & Data Vital Signs (Past 12 Hours) Vital Signs Temp Pulse Pulse Resp BP Pulse Ox O2 Del Method 03/01/24 07:43 36.5 C 79 16 115/61 93 Room Air 03/01/24 07:11 80 03/01/24 02:30 36.5 C 81 18 98/43 L 92 Room Air 02/29/24 22:16 36.5 C 74 16 94/42 L 94 Room Air 02/29/24 21:35 73
--- NOTE | 2024-03-01 08:36 | Urology Progress Note ---
Date of Service March 01, 2024 Assessment & Plan (1) Urethral stricture: (2) Indwelling Duran catheter present: Plan 79-year-old male with multiple medical comorbidities who is status post Optilume balloon dilation on 02/25/2024. He was admitted to the hospital on the for hypotension and suspected sepsis due to a UTI. He was also admitted with an VINICIUS which has been downtrending. Cultures at our facility have all been negative. Maintain Duran catheter. Dependent on patient's hospital course, we can perform a void trial prior to discharge as catheter can be removed at any time now from a surgery standpoint. -Urology to follow peripherally Admission and Anticipated Discharge Date Admission Date: February 28, 2024 Subjective Catheter draining well. Patient reports no discomfort Physical Exam Physical Exam: General: Alert and oriented, no acute distress HEENT: Normocephalic, mucous membranes moist Pulmonary: Nonlabored respirations Abdomen: Nondistended : Duran catheter draining kurt urine. Extremities: Moves all 4 spontaneously Neuro: No gross deficits Skin: Warm, dry, no rashes noted Results & Data Vital Signs (Past 12 Hours) Vital Signs Temp Pulse Pulse Resp BP Pulse Ox O2 Del Method 03/01/24 07:43 36.5 C 79 16 115/61 93 Room Air 03/01/24 07:11 80 03/01/24 02:30 36.5 C 81 18 98/43 L 92 Room Air 02/29/24 22:16 36.5 C 74 16 94/42 L 94 Room Air 02/29/24 21:35 73 PG Care Time/CCT Total # of Minutes Spent Total Time Spent with Patient: Total time spent is greater than 50% in coordination of care (as documented) at patient's floor/unit and/or counseling patient: Coding Level of Care Code 55559 SUB INP/OBS CARE 2/35MIN Diagnoses Urethral stricture N35.919 Indwelling Duran catheter present Z97.8
--- NOTE | 2024-03-01 11:58 | Gastroenterology Progress Note ---
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 This will always be a bleeding issue on or off anticoagulation. He said he will get his records from his GI doctor so I can see what has been done and what has been found since he tells me he had a colonoscopy three months ago. For now only plan to follow as bleeding (by report) has stopped. Admission and Anticipated Discharge Date Admission Date: February 28, 2024 Subjective Nurses notes document brown stool. He does not know. H/H are stable for him. He now tells me he had what he describes to me as a capsule endoscopy "swallowed something to check the middle GI". He is upset that I don't know his test results from his doctor in [place] Physical Exam Physical Exam: He looks well Constitutional: WD/WN, vitals as above Results & Data Vital Signs (Past 12 Hours) Vital Signs Temp Pulse Pulse Resp BP Pulse Ox O2 Del Method 03/01/24 11:47 36.5 C 77 16 94/48 L 95 Room Air 03/01/24 07:43 36.5 C 79 16 115/61 93 Room Air 03/01/24 07:11 80 03/01/24 02:30 36.5 C 81 18 98/43 L 92 Room Air
--- NOTE | 2024-03-01 13:34 | Hospitalist Progress Note ---
Date of Service March 01, 2024 Assessment & Plan (1) Hypotension: Plan: -Probably hemorrhagic shock on admission. -Improving -No definite evidence of sepsis. Urine culture is negative. Blood cultures: No growth to date -Pending final cultures will continue Rocephin for another 24 hours until final results are known -Per daughter his hypertensive med's were stopped at home for the last few years due to hypotension. (2) Rectal bleeding: Plan: -Now improving -Per patient now with "brown stool" -GI consultation appreciated. No colonoscopy at this moment. 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 -Continue to monitor closely (3) Pulmonary edema: Plan: -Acute diastolic CHF present on admission. -Lasix on hold for now given borderline BP's- will discuss with cardio soon possibly restarting low dose -Monitor intake and output. -Cardiac echo reviewed -Cardiology following -Continue to monitor to acheive euvolemic status (4) Encephalopathy: Plan: -Present on admission. Probably metabolic associated with hypotension. -Ammonia WNL -Now resolved. -Supportive care (5) Anemia: Plan: -Acute blood loss anemia from rectal bleeding and hematuria present on admission. -He received 1 unit packed red blood cells to date. -Iron panel ordered for the AM-may need repletion given chronic anemia with hx of radiation proctitis -Continue to monitor counts closely Pancytopenia: -Per family he is being worked up for multiple myeloma -He is pending a bone marrow biopsy outpatient -Has received Procrit in the past -See's Dr. Friedman in [place] for heme-onc (6) Urethral stricture: Plan: -Recent dilatation with placement of Duran catheter. -He states he had some hematuria previously but no gross hematuria at this time. -Urology consultation and recommendations appreciated (7) Elevated troponin: Plan: -Appears to be demand ischemia. No regional wall motion abnormality seen on cardiac echo. No current evidence of ACS (8) Indwelling Duran catheter present: Plan: -Recently placed after urethral stricture dilatation. Urology consultation and recommendations appreciated (9) Gross hematuria: Plan: -Now resolved. Between hematuria and rectal bleeding, this explains the presence of the acute blood loss anemia. (10) Acute kidney injury superimposed on CKD: Plan: -Chronic kidney disease stage III. -Monitor intake and output. -Duran catheter is in place. -Creatinine improving 3.8 on admission -Continue to monitor serial labs (11) Acute UTI: Plan: -Ruled out. Urine culture negative (12) Hx of aortic valve replacement, mechanical: Plan: -[place] mechanical aortic valve in place. Continue Coumadin anticoagula tion. Normal function per cardiac echo report. Plan Called and updated Family over the phone Admission and Anticipated Discharge Date Admission Date: February 28, 2024 Subjective Patient seen and evaluated bedside Patient admits to some rectal discomfort but reports having "brown" bowel movements Per staff noted brown bowel movements, did not notice blood most recently Duran in place, draining yellow urine Patient denies chest pain, palpitations, SOB, fevers, chills nausea or vomiting Review of Systems Review of Systems: As per HPI Physical Exam Physical Exam: General-alert and oriented x3, no fever, no chills. Hard of hearing HEENT-head atraumatic and normocephalic, extraocular muscles intact. Hard of hearing Neck-no lymphadenopathy or thyromegaly, trachea midline Chest-clear to auscultation. No rales, wheezing or rhonchi Cardiac-regular rate and rhythm, normal S1 and S2. Systolic valve click Abdomen-normal bowel sounds, no hepatosplenomegaly GUFoley catheter in place. No gross hematuria seen. Extremities-no cyanosis, clubbing, or edema Neuro-cranial nerves II through XII intact, motor and sensory function within normal limits, strength symmetrical with generalized weakness, no focal deficits Psych-normal affect, normal mood Results & Data Results & Data Vital Signs (Past 12 Hours) Vital Signs Temp Pulse Pulse Resp BP Pulse Ox O2 Del Method 03/01/24 11:47 36.5 C 77 16 94/48 L 95 Room Air 03/01/24 07:43 36.5 C 79 16 115/61 93 Room Air 03/01/24 07:11 80 03/01/24 02:30 36.5 C 81 18 98/43 L 92 Room Air PG Care Time/CCT Total # of Minutes Spent Total Time Spent with Patient: Total time spent is greater than 50% in coordination of care (as documented) at patient's floor/unit and/or counseling patient: Coding Level of Care Code 05080 SUB INP/OBS CARE 2/35MIN Diagnoses Hypotension I95.9 Rectal bleeding K62.5 Pulmonary edema J81.1 Encephalopathy G93.40 Anemia D64.9 Anemia type: unspecified type Urethral stricture N35.919 Elevated troponin R79.89 Indwelling Duran catheter present Z97.8 Gross hematuria R31.0 Acute kidney injury superimposed on CKD N17.9; N18.9 Acute UTI N39.0 Hx of aortic valve replacement, mechanical Z95.2 (5) Anemia Anemia type: unspecified type Qualified Code(s): D64.9 - Anemia, unspecified
[2024-03-01] MEDS: CALCIUM CARBONATE 500 MG CHEWABLE TAB PO PRN (16:07)
[2024-03-02] MEDS: ALBUT/IPRATROP 3MG/0.5MG NEB 3 ML VIAL NEB PRN (07:51)
[2024-03-02 08:03] LABS: Basophils # (auto) 0.02 K/uL (0.00-0.20); Basophils % (auto) 0.9 %; Eosinophils # (auto) 0.19 K/uL (0.00-0.50); Eosinophils % (auto) 8.4 %; Hematocrit (blood only) 27.6 % (42.0-52.0); Hemoglobin 8.6 g/dl (14.0-18.0); Immature Granulocytes # (auto) 0.01 K/uL (0.01-0.20); Immature Granulocytes % (auto) 0.4 %; Lymphocytes # (auto) 0.31 K/uL (1.20-3.40); Lymphocytes % (auto) 13.7 %; Mean Corpuscular Hgb Conc 31.2 g/dL (32.0-36.0); Mean Corpuscular Volume 92.9 fL (80.0-100.0); Mean Platelet Volume 9.8 fL (9.4-12.4); Monocytes # (auto) 0.26 K/uL (0.11-0.59); Monocytes % (auto) 11.5 %; Neutrophils # (auto) 1.47 K/uL (1.40-6.50); Neutrophils % (auto) 65.1 %; Platelet Count 102 K/uL (130-400); RDW Standard Deviation 61.2 fL (36.4-46.3); Red Blood Count 2.97 M/uL (4.70-6.10); White Blood Count 2.26 K/ul (4.8-10.8)
[2024-03-02 08:06] LABS: INR 3.3 (0.9-1.1); Prothrombin Time 32.4 Seconds (9.0-12.0)
[2024-03-02 08:29] LABS: Albumin Globulin Ratio 0.9 (0.9-2); Albumin Level 3.2 gm/dl (3.4-5.0); BUN Creatinine Ratio 16.5 (10-20); Bilirubin,Total 0.5 mg/dl (0.2-1.0); Calcium 8.4 mg/dl (8.6-10.3); Creatinine Clr Calc Pharmacy 27.2 ml/min; Est GFR (African American) 31.4 ml/min; Est GFR (Non-African American) 27.1 ml/min; Globulin 3.4 gm/dl (2.5-4.0); Potassium 4.5 mmol/L (3.5-5.1); Total Protein 6.6 gm/dl (6.0-8.3)
[2024-03-02 08:48] LABS: Ferritin 156.8 ng/ml (8-388)
[2024-03-02] MEDS: FENOFIBRATE NANOCRYSTALLIZED 145 MG TABLET PO SCH (09:04)
--- NOTE | 2024-03-02 09:36 | Cardiology Progress Note ---
Date of Service March 02, 2024 Assessment & Plan (1) Non-ST elevated myocardial infarction (non-STEMI): (2) Rectal bleeding: (3) Hx of aortic valve replacement, mechanical: (4) Hx of aortic aneurysm: (5) Chronic anticoagulation: Plan GI note reviewed. At this time no invasive workup, will continue with warfarin. INR was at goal today. His hgb is stable from yesterday. The non-STEMI is likely secondary to demand in the setting of hypovolemia and anemia. His troponin has trended down. His hgb should be kept above 8-9 given his cardiac history. No WMA on echo and LV is on the low side of normal. In the past his EF was as low as 45% upon review of past echoes. Continue amiodarone, sinus rhythm on the monitor. His kidney function is not too far off of his baseline at this point. His fluid balance is still negative. His furosemide is on hold. His fluid balance will need to be watched closely given his severe TR and grade III DD. His usual unit receptionist is a [facility] physician but he does not know his name. [facility] will continue to follow him here at [facility]. Admission and Anticipated Discharge Date Admission Date: February 28, 2024 Subjective Mr. Jarquin denies shortness of breath or chest pain today. He has not been out of bed however. He is in SR on the monitor. Review of Systems Review of Systems: All systems reviewed & are unremarkable except as noted in HPI & below Physical Exam Constitutional: WD/WN, vitals as above Respiratory: normal respiratory effort, lungs clear to auscultation Cardiovascular: Rate/Rhythm: regular rate and regular rhythm Heart Sounds: + click and + murmur (3/6 systolic) Extremities: no edema Results & Data Vital Signs (Past 12 Hours) Vital Signs Temp Pulse Pulse Resp BP Pulse Ox O2 Del Method 03/02/24 07:52 78 15 94 Room Air 03/02/24 07:27 Room Air 03/02/24 07:13 77 03/02/24 07:13 36.6 C 76 18 120/68 94 Room Air 03/02/24 02:35 36.4 C L 78 18 112/64 93 Room Air 03/01/24 22:21 36.5 C 79 18 129/69 94 Room Air 03/01/24 22:09 85 FiO2 08/27/24 07:52 21 03/02/24 07:27 03/02/24 07:13 03/02/24 07:13 03/02/24 02:35 03/01/24 22:21 03/01/24 22:09
[2024-03-02] MEDS: LACTULOSE SYRUP 10 GM/15 ML BTL 960 ML PO SCH (10:54)
--- NOTE | 2024-03-02 14:32 | Hospitalist Progress Note ---
Date of Service March 02, 2024 Assessment & Plan (1) Hypotension: Plan: -Probably hemorrhagic shock on admission. -Improving -No definite evidence of sepsis. Urine culture is negative. Blood cultures: No growth to date -Pending final cultures- will discontinue antibiotics as no growth to date. No clear source of infectious etiology. -Will monitor off of antibiotics for now -Per daughter his hypertensive med's were stopped at home for the last few years due to hypotension. (2) Rectal bleeding: Plan: -Frequency improving -GI consultation appreciated. No colonoscopy at this moment. 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 -Continue to monitor closely (3) Pulmonary edema: Plan: -Acute diastolic CHF present on admission. -Lasix on hold for now given borderline BP's- -Appears euvolemic- still with net negative fluid balance. Continue to hold per cardiology recommendations -Monitor volume status closely -Monitor intake and output. -Cardiac echo reviewed -Cardiology following -Continue to monitor to achieve euvolemic status (4) Encephalopathy: Plan: -Present on admission. Probably metabolic associated with hypotension. -Ammonia WNL -Now resolved. -Supportive care (5) Anemia: Plan: -Acute blood loss anemia from rectal bleeding and hematuria present on admission. -He received 1 unit packed red blood cells to date. -Iron panel reviewed -Continue to monitor counts closely Pancytopenia: -Per family he is being worked up for multiple myeloma -He is pending a bone marrow biopsy outpatient -Has received Procrit in the past -See's Dr. Friedman in [place] for heme-onc (6) Urethral stricture: Plan: -Recent dilatation with placement of Duran catheter. -He states he had some hematuria previously but no gross hematuria at this time. -Urology consultation and recommendations appreciated (7) Elevated troponin: Plan: -Appears to be demand ischemia. No regional wall motion abnormality seen on cardiac echo. No current evidence of ACS (8) Indwelling Duran catheter present: Plan: -Recently placed after urethral stricture dilatation. Urology consultation and recommendations appreciated (9) Gross hematuria: Plan: -Now resolved. Between hematuria and rectal bleeding, this explains the presence of the acute blood loss anemia. (10) Acute kidney injury superimposed on CKD: Plan: -Chronic kidney disease stage III. -Monitor intake and output. -Duran catheter is in place. -Creatinine improving; was 3.8 on admission -Continue to monitor serial labs (11) Acute UTI: Plan: -Ruled out. Urine culture negative (12) Hx of aortic valve replacement, mechanical: Plan: -[place] mechanical aortic valve in place. Continue Coumadin anticoagulation. Normal function per cardiac echo report. Plan PT recommended rehab- discussing with family and SW Called to update Family over the phone, no answer. Awaiting callback. Admission and Anticipated Discharge Date Admission Date: February 28, 2024 Subjective Patient seen and evaluated bedside Patient is currently in NAD Denies acute complaints this AM Overnight non-blood bowel movements noted, this AM had a bowel movement with blood tinge Duran remains in place, draining yellow urine Patient denies chest pain, palpitations, SOB, fevers, chills nausea or vomiting Review of Systems Review of Systems: As indicated in HPI Physical Exam 2 Physical Exam: General-alert and oriented x3, no fever, no chills. Hard of hearing HEENT-head atraumatic and normocephalic, extraocular muscles intact. Hard of hearing Neck-no lymphadenopathy or thyromegaly, trachea midline Chest-clear to auscultation. No rales, wheezing or rhonchi Cardiac-regular rate and rhythm, normal S1 and S2. Systolic valve click Abdomen-normal bowel sounds, no hepatosplenomegaly GUFoley catheter in place. No gross hematuria seen. Extremities-no cyanosis, clubbing, or edema Neuro-cranial nerves II through XII intact, motor and sensory function within normal limits, strength symmetrical with generalized weakness, no focal deficits Psych-normal affect, normal mood Results & Data Results & Data Vital Signs (Past 12 Hours) Vital Signs Temp Pulse Pulse Resp BP Pulse Ox O2 Del Method 03/02/24 13:58 79 03/02/24 11:20 81 18 120/58 L 03/02/24 07:52 78 15 94 Room Air 03/02/24 07:27 Room Air 03/02/24 07:13 77 03/02/24 07:13 36.6 C 76 18 120/68 94 Room Air 03/02/24 02:35 36.4 C L 78 18 112/64 93 Room Air FiO2 03/02/24 13:58 03/02/24 11:20 03/02/24 07:52 21 03/02/24 07:27 03/02/24 07:13 03/02/24 07:13 03/02/24 02:35 PG Care Time/CCT Total # of Minutes Spent Total Time Spent with Patient: Total time spent is greater than 50% in coordination of care (as documented) at patient's floor/unit and/or counseling patient: Coding Level of Care Code 31637 SUB INP/OBS CARE 2/35MIN Diagnoses Hypotension I95.9 Rectal bleeding K62.5 Pulmonary edema J81.1 Encephalopathy G93.40 Anemia D64.9 Anemia type: unspecified type Urethral stricture N35.919 Elevated troponin R79.89 Indwelling Duran catheter present Z97.8 Gross hematuria R31.0 Acute kidney injury superimposed on CKD N17.9; N18.9 Acute UTI N39.0 Hx of aortic valve replacement, mechanical Z95.2 (5) Anemia Anemia type: unspecified type Qualified Code(s): D64.9 - Anemia, unspecified
[2024-03-02] MEDS ORDERED: LACTULOSE SYRUP 10 GM/15 ML BTL 960 ML PO PRN (14:34)
[2024-03-02] MEDS: ONDANSETRON INJ 2 MG/ML 2 ML VIAL IV PRN (20:49)
--- NOTE | 2024-03-03 05:28 | Electrocardiogram Report ---
Test Reason : Blood Pressure : */* mmHG Vent. Rate : 81 BPM Atrial Rate : 81 BPM P-R Int : 212 ms QRS Dur : 100 ms QT Int : 416 ms P-R-T Axes : -9 -13 71 degrees QTcB Int : 483 ms Sinus rhythm with 1st degree A-V block Low voltage QRS Nonspecific T wave abnormality Prolonged QT Abnormal ECG When compared with ECG of 28-Feb-2024 16:27, No significant change was found Confirmed by Kian Linares ([id number]) on 03/03/2024 5:27:52 AM Referred By: REFERRED SELF Confirmed By: Kian Linares
[2024-03-03 06:35] LABS: Basophils # (auto) 0.02 K/uL (0.00-0.20); Basophils % (auto) 0.8 %; Eosinophils # (auto) 0.18 K/uL (0.00-0.50); Eosinophils % (auto) 7.5 %; Hematocrit (blood only) 27.1 % (42.0-52.0); Hemoglobin 8.4 g/dl (14.0-18.0); Immature Granulocytes # (auto) 0.02 K/uL (0.01-0.20); Immature Granulocytes % (auto) 0.8 %; Lymphocytes # (auto) 0.34 K/uL (1.20-3.40); Lymphocytes % (auto) 14.2 %; Mean Corpuscular Hemoglobin 29.1 pg (25.0-34.0); Mean Corpuscular Volume 93.8 fL (80.0-100.0); Mean Platelet Volume 10.6 fL (9.4-12.4); Monocytes # (auto) 0.25 K/uL (0.11-0.59); Monocytes % (auto) 10.4 %; Neutrophils # (auto) 1.59 K/uL (1.40-6.50); Neutrophils % (auto) 66.3 %; Platelet Count 108 K/uL (130-400); RDW Coefficient of Variation 17.8 % (11.5-14.5); RDW Standard Deviation 61.3 fL (36.4-46.3); Red Blood Count 2.89 M/uL (4.70-6.10)
[2024-03-03 06:36] LABS: INR 3.4 (0.9-1.1)
[2024-03-03 06:55] LABS: BUN Creatinine Ratio 16.2 (10-20); Calcium 8.5 mg/dl (8.6-10.3); Creatinine Clr Calc Pharmacy 30.9 ml/min; Est GFR (African American) 36.6 ml/min; Est GFR (Non-African American) 31.6 ml/min; Potassium 4.6 mmol/L (3.5-5.1)
--- NOTE | 2024-03-03 15:43 | Electrocardiogram Report ---
Test Reason : Blood Pressure : */* mmHG Vent. Rate : 90 BPM Atrial Rate : 90 BPM P-R Int : 256 ms QRS Dur : 100 ms QT Int : 380 ms P-R-T Axes : 13 -15 84 degrees QTcB Int : 464 ms Sinus rhythm with 1st degree A-V block Anterolateral infarct (cited on or before 08-Aug-2023) Abnormal ECG When compared with ECG of 11-Sep-2023 16:48, remains in NSR Confirmed by Abbie Osuna ([id number]) on 02/29/2024 11:42:28 AM Referred By: REFERRED SELF Confirmed By: Abbie Osuna
--- NOTE | 2024-03-03 16:01 | Hospitalist Progress Note ---
Date of Service March 03, 2024 Assessment & Plan (1) Hypotension: Plan: -Probably hemorrhagic shock on admission. -Improving -No definite evidence of sepsis. Urine culture is negative. Blood cultures: No growth to date -Pending final cultures- will discontinue antibiotics as no growth to date. No clear source of infectious etiology. -Will monitor off of antibiotics for now -Per daughter his hypertensive med's were stopped at home for the last few years due to hypotension. -BP back to baseline now (2) Rectal bleeding: Plan: -Frequency improving -GI consultation appreciated. No colonoscopy at this moment. 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 -Continue to monitor closely -Bleeding appears to have stabilized- always has some intermittent given history of radiation proctitis (3) Pulmonary edema: Plan: -Acute diastolic CHF present on admission. -Lasix on hold for now given borderline BP's- -Appears euvolemic- still with net negative fluid balance. Continue to hold lasix per cardiology recommendations -Monitor intake and output. -Cardiac echo reviewed -Cardiology following -Continue to monitor volume status (4) Encephalopathy: Plan: -Present on admission. Probably metabolic associated with hypotension. -Ammonia WNL -Now resolved. -Supportive care (5) Anemia: Plan: -Acute blood loss anemia from rectal bleeding and hematuria present on admission. -He received 1 unit packed red blood cells to date. -Iron panel reviewed -Continue to monitor counts closely Pancytopenia: -Per family he is being worked up for multiple myeloma -He is pending a bone marrow biopsy outpatient -Has received Procrit in the past -See's Dr. Friedman in [place] for heme-onc (6) Urethral stricture: Plan: -Recent dilatation with placement of Duran catheter. -He states he had some hematuria previously but no gross hematuria at this time. -Urology consultation and recommendations appreciated (7) Elevated troponin: Plan: -Appears to be demand ischemia. No regional wall motion abnormality seen on cardiac echo. No current evidence of ACS (8) Indwelling Duran catheter present: Plan: -Recently placed after urethral stricture dilatation. Urology consultation and recommendations appreciated (9) Gross hematuria: Plan: -Now resolved. Between hematuria and rectal bleeding, this explains the presence of the acute blood loss anemia. (10) Acute kidney injury superimposed on CKD: Plan: -Chronic kidney disease stage III. -Monitor intake and output. -Duran catheter is in place. -Creatinine improving; was 3.8 on admission -Continue to monitor serial labs (11) Acute UTI: Plan: -Ruled out. Urine culture negative (12) Hx of aortic valve replacement, mechanical: Plan: -[place] mechanical aortic valve in place. Continue Coumadin anticoagulation. Normal function per cardiac echo report. -Coumadin on hold for Tonight as INR >3 Plan PT recommended rehab-family requesting DC home. Arrangements being made for home services. If arrangements made- likely for AM DC Called to update family over the phone, no answer. Left voicemail. Awaiting callback. Coumadin held for tonight given supra-therpeutic INR Admission and Anticipated Discharge Date Admission Date: February 28, 2024 Subjective Patient seen and evaluated bedside Patient is currently in NAD No further episodes of blood in stool noted Patient's family electing for home instead of rehab disposition. Arrangements being made for home services. Review of Systems Review of Systems: As indicated in HPI Physical Exam Physical Exam: General-alert and oriented x3, no fever, no chills. Hard of hearing HEENT-head atraumatic and normocephalic, extraocular muscles intact. Hard of hearing Neck-no lymphadenopathy or thyromegaly, trachea midline Chest-clear to auscultation. No rales, wheezing or rhonchi Cardiac-regular rate and rhythm, normal S1 and S2. Systolic valve click Abdomen-normal bowel sounds, no hepatosplenomegaly GUFoley catheter in place. No gross hematuria seen. Extremities-no cyanosis, clubbing, or edema Neuro-cranial nerves II through XII intact, motor and sensory function within normal limits, strength symmetrical with generalized weakness, no focal deficits Psych-normal affect, normal mood Results & Data Results & Data Vital Signs (Past 12 Hours) Vital Signs Temp Pulse Pulse Resp BP BP Pulse Ox 03/03/24 15:25 83 03/03/24 15:12 36.4 C L 80 18 106/62 93 03/03/24 11:06 36.3 C L 82 18 108/64 93 03/03/24 09:28 03/03/24 07:30 78 03/03/24 07:18 36.4 C L 77 18 123/69 93 O2 Del Method 03/03/24 15:25 03/03/24 15:12 Room Air 03/03/24 11:06 Room Air 03/03/24 09:28 Room Air 03/03/24 07:30 03/03/24 07:18 Room Air PG Care Time/CCT Total # of Minutes Spent Total Time Spent with Patient: Total time spent is greater than 50% in coordination of care (as documented) at patient's floor/unit and/or counseling patient: Coding Level of Care Code 76592 SUB INP/OBS CARE 2/35MIN Diagnoses Hypotension I95.9 Rectal bleeding K62.5 Pulmonary edema J81.1 Encephalopathy G93.40 Anemia D64.9 Anemia type: unspecified type Urethral stricture N35.919 Elevated troponin R79.89 Indwelling Duran catheter present Z97.8 Gross hematuria R31.0 Acute kidney injury superimposed on CKD N17.9; N18.9 Acute UTI N39.0 Hx of aortic valve replacement, mechanical Z95.2 (5) Anemia Anemia type: unspecified type Qualified Code(s): D64.9 - Anemia, unspecified
--- NOTE | 2024-03-03 19:09 | Cardiology Progress Note ---
Date of Service March 03, 2024 Assessment & Plan (1) Non-ST elevated myocardial infarction (non-STEMI): (2) Rectal bleeding: (3) Hx of aortic valve replacement, mechanical: (4) Hx of aortic aneurysm: (5) Chronic anticoagulation: Plan GI note reviewed. At this time no invasive workup, warfarin remains on hold but INR still therapeutic. INR was at goal today. His hgb is stable from yesterday. Resume warfarin when INR < 3 (goal is 2.5-3.5 with mechanical valve The non-STEMI is likely secondary to demand in the setting of hypovolemia and anemia. His troponin has trended down. His hgb should be kept above 8-9 given his cardiac history. No WMA on echo and LV is on the low side of normal. In the past his EF was as low as 45% upon review of past echoes. Continue amiodarone, sinus rhythm on the monitor. His kidney function is not too far off of his baseline at this point. His fluid balance is still negative. His furosemide is on hold. His fluid balance will need to be watched closely given his severe TR and grade III DD. 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 [facility] will continue to follow him here at [facility]. Admission and Anticipated Discharge Date Admission Date: February 28, 2024 Subjective Patient seen and evaluated bedside Patient is currently in NAD No further episodes of blood in stool noted He asked if "it was possible to see little white bugs in his scat" Review of Systems Respiratory: as per Subjective / HPI Cardiovascular: as per Subjective / HPI Physical Exam Physical Exam: He is comfortable in bed appears in no apparent distress Constitutional: WD/WN, vitals as above Respiratory: CTA b/l Cardiovascular: valve sounds crisp no new murmurs Results & Data Vital Signs (Past 12 Hours) Vital Signs Temp Pulse Pulse Resp BP BP Pulse Ox 03/03/24 15:25 83 03/03/24 15:12 36.4 C L 80 18 106/62 93 03/03/24 11:06 36.3 C L 82 18 108/64 93 03/03/24 09:28 03/03/24 07:30 78 03/03/24 07:18 36.4 C L 77 18 123/69 93 O2 Del Method 03/03/24 15:25 03/03/24 15:12 Room Air 03/03/24 11:06 Room Air 03/03/24 09:28 Room Air 03/03/24 07:30 03/03/24 07:18 Room Air Laboratory Results Abnormal lab results 03/03/24 Range/Units 05:55 WBC 2.40 L (4.8-10.8) K/ul RBC 2.89 L (4.70-6.10) M/uL Hgb 8.4 L (14.0-18.0) g/dl Hct 27.1 L (42.0-52.0) % MCHC 31.0 L (32.0-36.0) g/dL RDW Std Deviation 61.3 H (36.4-46.3) fL RDW Coeff of Inck 17.8 H (11.5-14.5) % Plt Count 108 L (130-400) K/uL Lymph # (Auto) 0.34 L (1.20-3.40) K/uL PT 33.0 H (9.0-12.0) Seconds INR 3.4 H (0.9-1.1) Chloride 109 H (98-107) mmol/L BUN 32 H (6-23) mg/dl Creatinine 1.97 H (0.6-1.4) mg/dl Calcium 8.5 L (8.6-10.3) mg/dl
[2024-03-03] MEDS: CIPROFLOXACIN HCL 0.3% OP SOLN 2.5 ML BTL OP SCH (20:27)
[2024-03-04 06:59] LABS: Basophils # (auto) 0.04 K/uL (0.00-0.20); Basophils % (auto) 1.8 %; Eosinophils # (auto) 0.22 K/uL (0.00-0.50); Eosinophils % (auto) 9.7 %; Hematocrit (blood only) 27.5 % (42.0-52.0); Hemoglobin 8.4 g/dl (14.0-18.0); Immature Granulocytes # (auto) 0.01 K/uL (0.01-0.20); Immature Granulocytes % (auto) 0.4 %; Lymphocytes # (auto) 0.32 K/uL (1.20-3.40); Lymphocytes % (auto) 14.1 %; Mean Corpuscular Hemoglobin 29.1 pg (25.0-34.0); Mean Corpuscular Hgb Conc 30.5 g/dL (32.0-36.0); Mean Corpuscular Volume 95.2 fL (80.0-100.0); Mean Platelet Volume 10.4 fL (9.4-12.4); Monocytes # (auto) 0.22 K/uL (0.11-0.59); Monocytes % (auto) 9.7 %; Neutrophils # (auto) 1.46 K/uL (1.40-6.50); Neutrophils % (auto) 64.3 %; Platelet Count 112 K/uL (130-400); RDW Coefficient of Variation 17.7 % (11.5-14.5); RDW Standard Deviation 62.3 fL (36.4-46.3); Red Blood Count 2.89 M/uL (4.70-6.10); White Blood Count 2.27 K/ul (4.8-10.8)
[2024-03-04 07:09] LABS: INR 2.9 (0.9-1.1); Prothrombin Time 28.3 Seconds (9.0-12.0)
[2024-03-04 07:12] LABS: BUN Creatinine Ratio 15.7 (10-20); Calcium 8.5 mg/dl (8.6-10.3); Creatinine Clr Calc Pharmacy 32.9 ml/min; Est GFR (African American) 39.5 ml/min; Est GFR (Non-African American) 34.1 ml/min; Potassium 4.7 mmol/L (3.5-5.1)
[2024-03-04] MEDS: CIPROFLOXACIN HCL 0.3% OP SOLN 2.5 ML BTL OP STA (08:27)
--- NOTE | 2024-03-04 10:25 | Cardiology Progress Note ---
Date of Service March 04, 2024 Assessment & Plan (1) Non-ST elevated myocardial infarction (non-STEMI): (2) Rectal bleeding: (3) Hx of aortic valve replacement, mechanical: (4) Hx of aortic aneurysm: (5) Chronic anticoagulation: Plan GI note reviewed. At this time no invasive workup, warfarin remains on hold but INR still therapeutic. INR was at goal today. His hgb is stable from yesterday. Resume warfarin when INR < 3 (goal is 2.5-3.5 with mechanical valve; consider r esuming warfarin in the next 24 hours while in hospital if ok with GI to assess if any bleeding after start. ECHO with well functioning AVR; EF ok. Diastolic dysfunction-resume diuretic if increase weight edema . Follow BPs. Continue amiodarone, remains sinus rhythm on the monitor. His kidney function is not too far off of his baseline at this point. His fluid balance is still negative. His furosemide is on hold. His fluid balance will need to be watched closely given his severe TR and grade III DD. 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 [facility] will continue to follow him here at [facility]. Admission and Anticipated Discharge Date Admission Date: February 28, 2024 Subjective Patient seen and evaluated bedside Patient is currently in NAD No further episodes of blood in stool noted INR today 2.9 Review of Systems Respiratory: as per Subjective / HPI Cardiovascular: as per Subjective / HPI Physical Exam Physical Exam: He is comfortable in bed appears in no apparent distress Constitutional: WD/WN, vitals as above Results & Data Vital Signs (Past 12 Hours) Vital Signs Temp Pulse Pulse Resp BP Pulse Ox O2 Del Method 03/04/24 08:20 Room Air 03/04/24 07:29 36.4 C L 72 16 121/67 93 Room Air 03/04/24 07:00 74 03/04/24 04:51 36.7 C 80 18 119/63 94 Room Air 03/04/24 00:24 36.7 C 82 16 100/56 L 92 Room Air Laboratory Results Abnormal lab results 03/04/24 Range/Units 06:10 WBC 2.27 L (4.8-10.8) K/ul RBC 2.89 L (4.70-6.10) M/uL Hgb 8.4 L (14.0-18.0) g/dl Hct 27.5 L (42.0-52.0) % MCHC 30.5 L (32.0-36.0) g/dL RDW Std Deviation 62.3 H (36.4-46.3) fL RDW Coeff of Nick 17.7 H (11.5-14.5) % Plt Count 112 L (130-400) K/uL Lymph # (Auto) 0.32 L (1.20-3.40) K/uL PT 28.3 H (9.0-12.0) Seconds INR 2.9 H (0.9-1.1) Chloride 109 H (98-107) mmol/L BUN 29 H (6-23) mg/dl Creatinine 1.85 H (0.6-1.4) mg/dl Calcium 8.5 L (8.6-10.3) mg/dl
[2024-03-04 11:23] VITALS: RESP 18; TEMP 97.7; O2SAT 94
--- NOTE | 2024-03-04 15:16 | Discharge Summary ---
Discharge Summary Date of Service March 04, 2024 Principal Dx & Hospital Course #1 = Principal Diagnosis (1) Hypotension: -Probably hemorrhagic shock on admission. He was having heavier than usual bright red blood per rectum. Blood pressure at outside hospital was in the 70s systolic He received a blood transfusion there and IV fluids. Blood pressures are now normal -No definite evidence of sepsis. Urine culture is with mixed marco. Blood cultures: No growth to date No further antibiotics given -Per daughter his hypertensive med's were stopped at home for the last few years due to hypotension. (2) Rectal bleeding: -Frequency improving-back to baseline small amounts -GI consultation appreciated. No colonoscopy at this moment. 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 Hemoglobin now stable for couple of days in a row at 8.4 -Continue to monitor closely as an outpatient with hematology -Bleeding appears to have stabilized- always has some intermittent given history of radiation proctitis -Okay to resume Coumadin (3) Pulmonary edema: -Acute diastolic CHF present on admission. He had some small pleural effusion and pulmonary edema on chest x-ray. Is not hypoxic -Lasix on hold for now given borderline BP's-can resume on discharge -Weight is up from previous-resume Lasix on discharge, creatinine is improved down to 1.8 -Cardiac echo reviewed -Cardiology following and he will follow-up with them as an outpatient (4) Encephalopathy: -Present on admission. Probably metabolic associated with hypotension. Now resolved -Ammonia WNL (5) Anemia: -Acute blood loss anemia from rectal bleeding and hematuria present on admission. -He received 1 unit packed red blood cells to date and hemoglobin now stable at 8.4 -Iron panel reviewed-he also receives iron transfusions as an outpatient and iron studies here showed transferrin saturation 10% but ferritin normal at 156 -Continue to monitor counts closely as an outpatient with hematology Pancytopenia: -Per family he is being worked up for multiple myeloma -He is pending a bone marrow biopsy outpatient -Has received Procrit in the past -See's Dr. Friedman in [place] for heme-onc (6) Urethral stricture: -Recent dilatation with placement of Duran catheter. -He states he had some hematuria previously but no gross hematuria at this time. -Urology consultation and recommendations appreciated-recommends discontinuing Duran catheter prior to discharge for trial of void-he passed this prior to discharge Follow-up with urology as an outpatient (7) Elevated troponin: -Appears to be demand ischemia. No regional wall motion abnormality seen on cardiac echo. No current evidence of ACS With troponin peaked at 5000 at outside hospital and back down to 1400 here (8) Gross hematuria: -Now resolved. Between hematuria and rectal bleeding, this explains the presence of the acute blood loss anemia. (9) Acute kidney injury superimposed on CKD: -Chronic kidney disease stage III with baseline creatinine 1.6-creatinine was up in the threes on admission and now down to 1.8 Likely due to hypotension and ATN Resolved (10) Acute UTI: -Ruled out. Urine culture negative/mixed marco (11) Hx of aortic valve replacement, mechanical: -[place] mechanical aortic valve in place. Continue Coumadin a nticoagulation. Normal function per cardiac echo report. INR 2.9 on the day of discharge-resume home Coumadin dose and follow INR as an outpatient Goal is 2.5-3.5 Plan PT recommended rehab-family requesting DC home. Arrangements made for home services Discussed his care with at bedside on day of discharge Notes For Next Care Provider Follow CBC, BMP, INR as an outpatient within 1 week Follow-up with urology, cardiology, hematology/oncology, and nephrology as well as PCP on discharge Also needs follow-up with tour narrator or coat operator for left eye conjunctivitis Medication Changes From Visit See medication list below-added Cipro ophthalmic drops Admission HPI Per Admitting Provider The patient is a 79-year-old male with a past medical history including pancytopenia, hypothyroidism, failure to thrive, pleural effusion, cirrhosis, status post AVR on chronic anticoagulation with warfarin, diabetes mellitus type 2, GERD, prostate cancer, aortic aneurysm repair, anemia of chronic disease, hematuria and intermittent rectal bleeding, and generalized weakness. The patient presented this evening with history as noted above. Discharge Exam Constitutional WD/WN, vitals as above Eyes Left eye with scleral/subconjunctival hemorrhage, crusted lids and lashes, erythematous conjunctiva Respiratory normal respiratory effort, lungs clear to auscultation Cardiovascular RRR, no murmur, no edema Gastrointestinal (Abdomen) normal bowel sounds, soft, nontender, no hepatosplenomegaly Psychiatric A+Ox3, euthymic affect Discharge Plan Discharge Items Patient Disposition: Home - Home Health Services Reason For Visit: ENCEPHALOPATHY, ELEVATED TROPONIN, VINICIUS Discharge Diagnosis: Hemorrhagic shock, acute blood loss anemia Acute kidney injury NSTEMI Acute metabolic encephalopathy-resolved Left eye conjunctivitis Condition on Discharge: Fair Activity: As commented below Activity Comment: Gradually increase activity with home PT/OT Non-emergency contact: Primary Care Provider, Security Technician, Slab Miller Operator, [place], Oncologist and Urologist Call non-emergency contact if: you have any medication questions and your symptoms worsen Follow-up/Referrals: Sho Bowman DO [Primary Care Provider] - (PLEASE CALL YOUR PRIMARY CARE PROVIDER TO SCHEDULE A HOSPITAL DISCHARGE FOLLOW-UP APPOINTMENT WITHIN 7-10 DAYS) Diet: Low Sodium (2gm) Addtl Attending Provider Instructions: You were admitted with low blood pressure from blood loss. Your Coumadin was held and has now been restarted. You were given a blood transfusion. Please follow-up with your car changer for further checks on your blood count due to your ongoing workup for underlying multiple myeloma. Follow-up with the urologist if you have any issues with urinating after discharge. For your left eye infection, please follow-up with your eye doctor after discharge. Pending Studies at Discharge: No Stand-Alone Forms: My [employer], Smoking Cessation Medications and DC Order Prescriptions: New ciprofloxacin HCl 0.3 % Drops 1 drp ophthalmic (eye) BID 7 Days Qty: 10 0RF Continued amiodarone 200 mg tablet 100 mg PO QAM cholecalciferol (vitamin D3) 50 mcg (2,000 unit) capsule 50 mcg PO QPM clonazepam 0.5 mg tablet 0.5 mg PO DAILY PRN (Reason: Anxiety) Rx Instructions: unable to verify fenofibric acid (choline) 135 mg capsule,delayed release(DR/EC) 135 mg PO QAM hydrocortisone acetate 1 % cream 1 applic topical BID PRN (Reason: Skin Irritation) Rx Instructions: unable to verify aripiprazole [Abilify] 2 mg tablet 2 mg PO QAM Patient Comments: prescription ran out, waiting to hear back from PCP to see if he will resume taking it. sertraline 100 mg Tablet 100 mg PO QPM tamsulosin 0.4 mg capsule 0.8 mg PO QPM ferrous fumarate-vitamin C 66-125 mg Tablet,Chewable 1 tab PO 3XWK Qty: 0 Rx Instructions: as directed @ 5PM . Fri/Fri/Fri warfarin 2 mg tablet 3 mg PO DAILY Hold Instructions: Hold until follow up INR in 2 days. Rx Instructions: 3 mg daily. Pt test INR at home every Friday. 5:00pm cyanocobalamin (vitamin B-12) [Vitamin B-12] 1,000 mcg Tablet 1,000 mcg PO DAILY levothyroxine [Synthroid] 75 mcg tablet 75 mcg PO QAM furosemide 40 mg Tablet 40 mg PO QAM Qty: 30 0RF pantoprazole 40 mg tablet,delayed release (DR/EC) 40 mg PO BID Qty: 60 0RF Prevagen 30 mg capsule 30 mg PO DAILY lactulose 10 gram/15 mL Syrup 30 g PO TID [employer] 3 billion cell Capsule 1 cap PO QAM ondansetron 4 mg tablet,disintegrating 4 mg PO Q6H PRN (Reason: Nausea And Vomiting) Discharge Orders: Discharge Order (Routine); Ordered 03/04/24 Ordered By: Maryanne Middleton Admission Data Admit Date/Time: 02/28/24 20:09 Attending Provider: Maryanne Middleton Admit Provider: Denny Lynch Primary Care Provider: Sho Bowman Other Providers: Denny Lynch; Abbie Osuna; Marin Dorado Jr; Lefty Tomas Hospital Stay Data Consultations 02/28/24 19:34 ED Decision to Admit Stat 02/28/24 22:08 Consult Cardiology Routine 02/29/24 03:56 Consult Gastroenterology Routine 02/29/24 08:22 Consult Urology Routine Pending Results Patient Have Any Pending Studies at Discharge: No Discharge Instructions Given to Patient (Per Discharging Provider) You were admitted with low blood pressure from blood loss. Your Coumadin was held and has now been restarted. You were given a blood transfusion. Please follow-up with your car changer for further checks on your blood count due to your ongoing workup for underlying multiple myeloma. Follow-up with the urologist if you have any issues with urinating after discharge. For your left eye infection, please follow-up with your eye doctor after discharge. Total Time Total Time Spent Total Time Spent (In Minutes): 40 minutes Total Time Includes: Examination of the Patient, Discharge Planning and Medication Reconciliation Coding Level of Care Code 22205 INP/OBS DISCH >30 MIN Diagnoses Hypotension I95.9 Rectal bleeding K62.5 Pulmonary edema J81.1 Encephalopathy G93.40 Anemia D64.9 Anemia type: unspecified type Urethral stricture N35.919 Elevated troponin R79.89 Gross hematuria R31.0 Acute kidney injury superimposed on CKD N17.9; N18.9 Acute UTI N39.0 Hx of aortic valve replacement, mechanical Z95.2
[2024-03-04 15:25] VITALS: BP 126/65; PULSE 68
== END 2024-03-04 15:54 | disposition home health service (06) | DRG 811 ==
LOC: ED 16:13 → EDINP 20:09 → SUATTDRO 20:09 → 2W 22:08

== ENCOUNTER 2024-05-18 15:49 | Inpatient (IN) ==
[2024-05-18] MEDS ORDERED: CEFEPIME 2,000 MG in SYRINGE 7.5 ML IV STA (16:08)
--- NOTE | 2024-05-18 16:19 | Emergency Department Note ---
Impression & Plan Hypotension, Anemia, Hematuria, Acute confusion, Acute dehydration, CRF (chronic renal failure) ED Provider Note NAME: IGLESIA VILLARREAL AGE: 79 SEX: M : 1945 ARRIVES VIA: Walk-In INFORMANT: [Patient][] ED PROVIDER(S): [Fuad Goncalves MD] CHIEF COMPLAINT: Catheter replacement HISTORY OF PRESENT ILLNESS: The patient is a 79-year-old male with a Duran catheter. He has been having issues with hematuria. He was seen 3 days ago for hematuria but the amount was minimal and his hemoglobin was stable. He was discharged. As per his , the patient has had grossly bloody urine in his Duran bag again since earlier this morning. He has had at least 6 hours of hematuria. In addition, he seems more confused and does not seem to be himself, he is quite weak. The patient himself is a poor historian. He currently denies any pain. He does not appear short of breath. He admits to being confused. The patient is no longer on blood thinning agents. He did recently start cefdinir as prescribed during his last ED visit. Of note, as per triage, the patient's initial blood pressure was in the 70s systolic, it improved to over 100 systolic when he was moved back to an ED room. PMHx/PSHx/Social Hx: See Below PHYSICAL EXAM: GENERAL: Patient is in no acute distress. HEENT: No acute trauma, normocephalic atraumatic, mucous membranes dry, no nasal congestion. NECK: No stridor, no adenopathy, no meningismus, trachea is midline. LUNGS: Clear to auscultation bilaterally when listening anterior,, no wheeze, no rhonchi, breath sounds equal. HEART: 2/6 systolic murmur with a louder click like sound noted. Regular rate and rhythm. ABDOMEN: Soft, nontender, no peritonitis. Duran catheter in place with grossly bloody urine in the Duran bag. EXTREMITIES: No cyanosis, full range of motion of all the joints without pain or difficulty. Mild bilateral pedal edema. NEUROLOGIC: Awake, poor historian, no acute motor or sensory deficits, no focal weakness. SKIN: No jaundice, no diaphoresis. Groin: No rash to suggest cellulitis. DIFFERENTIAL DIAGNOSIS: Bacteremia or sepsis, anemia, dehydration, electrolyte imbalance, misplaced catheter, hydronephrosis, among others. EMERGENCY DEPARTMENT PROCEDURES: MEDICAL DECISION MAKING: There is no leukocytosis. The patient is anemic however, this is a chronic issue for him and his hemoglobin today is at a very reasonable value looking back at previous testing. Platelet count was low at 127, the patient carries a history of thrombocytopenia. INR slightly high at 1.3. There was some mild acute on chronic renal failure with a creatinine of 2.05. No electrolyte abnormality in need of emergent correction. Lactic acid level was somewhat elevated, possibly consistent with infection or dehydration. There were some subtle liver enzyme elevations, the total bilirubin was not elevated. ECG shows a sinus rhythm with a first AV block. No obvious ST elevation. Cardiac enzyme testing x 1 is slightly elevated. This cardiac troponin elevation could be secondary to mismatch or his renal disease or potentially cardiac injury. Urinalysis does show hematuria, no obvious infection. Brain CT showed no acute bleed or mass effect. Abdominal and pelvis CT showed the Duran catheter to be in position. No urinary obstruction noted. The patient was aggressively managed given the hypotension reported when he first arrived. He was certainly at risk for sepsis. The patient was given 1 L of IV saline, he received IV cefepime as antibiotic coverage. The patient has been maintaining his blood pressure. He does seem to be doing well since treatment. I do think a hospital stay would be warranted. Further workup/care/monitoring is required. I spoke with the patient and case management. The on-call hospitalist was consulted. Prior/Outside records/notes reviewed: Previous ED visit note describing his presentation, care and plan outpatient. ECG per my interpretation: Indication was confusion. The ECG shows a sinus rhythm with a first-degree AV block. The rate is 73. There is a potential old lateral infarct. There is no acute ST elevation, no PVCs. Diffuse nonspecific ST changes seen. QTc is 482. Continuous Cardiac Monitoring per my interpretation: An order was placed for continuous cardiac monitoring. The monitor shows a rate of 73 with sinus rhythm with a first-degree block. Imaging/x-ray results per my interpretation: Chest x-ray does show some scant effusion on the right. No pneumonia. Chronic Medical/Social conditions affecting care: Advanced age. Care/Management discussed with: Case management, the on-call hospitalist. Level of care consideration(s): After review of the information above and other included data: --I believe the patient requires escalation of care to admission. Critical Care Note: I have personally spent 46 minutes of critical care time in the direct management of this patient. This includes bedside care, interpretation of diagnostic studies, and testing, discussion with consultants, patient, and family members, and other required patient management activities. This 46 minutes is in excess of all separately billable procedures. DISPOSITION: Admission Past Med/Surg History Problem List CRF (chronic renal failure) (Acute) Acute dehydration (Acute) Acute confusion (Acute) Hematuria (Acute) Anemia (Acute) Hypotension (Acute) Urinary tract infection with hematuria Encephalopathy Confusion (Acute) Generalized weakness (Acute) Hematuria (Acute) Chronic anticoagulation Anemia in chronic kidney disease (CKD) Rectal bleeding pt's reports ongoing rectal bleeding (GI is aware) since XRT for prostate Ca; pt takes iron supplement Hx of aortic valve replacement, mechanical 1989 Urethral stricture Urge incontinence Delirium Thrombocytopenia Hypothyroidism Failure to thrive in adult Pleural effusion (Acute) Anemia (Acute) Generalized weakness (Acute) Cirrhosis Diarrhea CHF (congestive heart failure) (Acute) S/P AVR Weakness Encounter for pre-operative examination Diabetes mellitus, type 2 NIDDM GERD (gastroesophageal reflux disease) Hx of prostatic malignancy Spring 2020 Treated with radiation treatments Hx of aortic aneurysm ascending aortic aneurysm s/p dissection 05/2019 and subsequent repair of aortic root (28mm Gelweave graft) Prostate cancer Medical History Non-ST elevated myocardial infarction (non-STEMI) Acute kidney injury superimposed on CKD Gross hematuria Chronic kidney disease Hypothyroidism Hx of aortic aneurysm ascending aortic aneurysm s/p dissection 05/2019 and subsequent repair of aortic root (28mm Gelweave graft) Failure to thrive in adult admission [facility] 08/31/23-09/12/23. pt's states that he has improved slightly since d/c (he has also since had an admission to [facility] since that time per ; unknown dx) Thrombocytopenia Prostate CA XRT 2020; Rezum 12/05/22 Dementia pt had significant confusion during 09/2023 admission [facility]; states that he is 'much better' at home. she also notes increased confusion after General Anesthesia GERD (gastroesophageal reflux disease) Portal hypertension Diabetes type 2, controlled metformin d/c during [facility] admission 2/2 hypoglycemia (pt has been having GI issues and has not been eating normal diet) Cirrhosis follows with GI Anemia pt's reports ongoing rectal bleeding (GI is aware) since XRT for prostate Ca; pt takes iron supplement; recent iron infusions and procrit injections (02/12/24 and will have another on 02/19/24) Generalized weakness uses cane to ambulate Urinary tract infection recurrent; follows with urology Nausea & vomiting current sx; following with GI CHF (congestive heart failure) follows with [facility] Osteoarthritis Anxiety Hypertension meds reduced during 09/2023 [facility] admission 2/2 hypotension Suspected sleep apnea unaware History of COVID-19 x2 ; 10/2022 most recent (pt was asymptomatic); no ongoing sx History of fractured vertebra Cervical fracture 11/18/21- medical management recommended, follows with physical therapy, "full ROM" per patient Surgical History History of endoscopy capsule endoscopy History of flexible sigmoidoscopy History of colonoscopy History of cholecystectomy History of appendectomy History of prostate surgery multiple; most recent [facility] 12/05/22: MAC without issue History of aortic aneurysm repair 05/2021 in [facility] Follows with [facility] Cardiology Family History Mother Diabetes Hypertension Father Diabetes Other No family history of adverse response to anesthesia Social History Smoking Status: Never smoker Second Hand Exposure: No; Do You Dip or Chew Tobacco: No; Hx Alcohol Use: No Hx Substance Use: No Preferred Language: Japanese Communication Ability: Effective Monument Stonecutter Required: No Beliefs That Will Affect Care: None marital status: Current Living Situation: Spouse current occupational status: retired Feels Safe at Home: Yes Assistive Devices: Cane and Walker Allergies Allergies Allergy/AdvReac Type Severity Reaction Status Date / Time plasma protein fraction Allergy Severe FROZEN Verified 05/18/24 19:42 PLASMA-- DEVELOPED HIVES Home Meds Home Medications Medication Instructions Recorded Confirmed cholecalciferol (vitamin D3) 50 50 mcg PO QPM 10/07/22 05/18/24 mcg (2,000 unit) capsule clonazepam 0.5 mg tablet 0.5 mg PO DAILY PRN Anxiety 10/07/22 05/18/24 hydrocortisone acetate 1 % topical 1 applic topical BID PRN Skin 10/07/22 05/18/24 cream Irritation sertraline 100 mg tablet 100 mg PO HS 11/25/22 05/18/24 tamsulosin 0.4 mg capsule 0.8 mg PO QPM 11/25/22 05/18/24 cyanocobalamin (vitamin B-12) 1,000 mcg PO DAILY 08/31/23 05/18/24 1,000 mcg tablet (Vitamin B-12) levothyroxine 75 mcg tablet 75 mcg PO QAM 08/31/23 05/18/24 (Synthroid) lactulose 10 gram/15 mL oral syrup 30 g PO BID 01/22/24 05/18/24 ondansetron 4 mg disintegrating 4 mg PO Q6H PRN Nausea And Vomiting 02/28/24 05/18/24 tablet bumetanide 1 mg tablet 1 mg PO .3X WEEK 05/15/24 05/18/24 hydroxyzine HCl 10 mg tablet 10 mg PO BID PRN Itching 05/15/24 05/18/24 lansoprazole 30 mg capsule,delayed 30 mg PO BID 05/15/24 05/18/24 release quetiapine 25 mg tablet 25 mg PO QAM 05/15/24 05/18/24 quetiapine 50 mg tablet 50 mg PO HS 05/15/24 05/18/24 metoprolol tartrate 25 mg tablet 25 mg PO BID 05/18/24 05/18/24 rifaximin 550 mg tablet (Xifaxan) 550 mg PO BID 05/18/24 05/18/24 Previous Rx's Medication Instructions Recorded cefdinir 300 mg capsule 300 mg PO BID #14 caps 05/15/24 Results & Data (ED) Vital Signs Vital Signs - 24 hr 05/18/24 15:58 05/18/24 16:35 05/18/24 16:36 Temperature 36.6 C Temperature Source Oral Pulse Rate 73 72 73 Pulse Rate [Apical] Pulse Rhythm Regular Pulse Rhythm [Apical] Pulse Strength [Apical] Respiratory Rate 18 16 Respiratory Effort / Characteristics Non-Labored Spontaneous Respiratory Depth Normal Respiratory Pattern Regular Blood Pressure 105/70 Blood Pressure [Left Arm] Blood Pressure Mean 81 Blood Pressure Mean [Left Arm] Blood Pressure Position [Left Arm] Pulse Oximetry 94 98 Oxygen Delivery Method Room Air Room Air Sepsis Recent Fever Within 48 Hours No Sepsis New/Unexplained Change in Mental Status No Sepsis Action Taken by Nursing No Action Required 05/18/24 16:58 05/18/24 18:00 Temperature Temperature Source Pulse Rate Pulse Rate [Apical] 72 71 Pulse Rhythm Pulse Rhythm [Apical] Regular Irregular Pulse Strength [Apical] Normal Respiratory Rate 22 Respiratory Effort / Characteristics Non-Labored Spontaneous Respiratory Depth Normal Respiratory Pattern Regular Blood Pressure Blood Pressure [Left Arm] 109/67 103/79 Blood Pressure Mean Blood Pressure Mean [Left Arm] 81 87 Blood Pressure Position [Left Arm] Lying Lying Pulse Oximetry 97 96 Oxygen Delivery Method Room Air Room Air Sepsis Recent Fever Within 48 Hours Sepsis New/Unexplained Change in Mental Status Sepsis Action Taken by [facility] Medications Current Medication List: was personally reviewed by me Laboratory Data Attestation: I reviewed the patient's lab results. 05/18/24 16:24 05/18/24 16:24 Lab Results 05/18/24 05/18/24 05/18/24 Range/Units 16:24 16:29 16:30 WBC 6.57 (4.8-10.8) K/ul RBC 2.83 L (4.70-6.10) M/uL Hgb 9.1 L (14.0-18.0) g/dl Hct 29.0 L (42.0-52.0) % MCV 102.5 H (80.0-100.0) fL MCH 32.2 (25.0-34.0) pg MCHC 31.4 L (32.0-36.0) g/dL RDW Std Deviation 65.4 H (36.4-46.3) fL RDW Coeff of Nick 17.3 H (11.5-14.5) % Plt Count 127 L (130-400) K/uL MPV 11.3 (9.4-12.4) fL Immature Gran % (Auto) 0.5 % Neut % (Auto) 82.8 % Lymph % (Auto) 5.6 % Cecil % (Auto) 7.9 % Eos % (Auto) 2.6 % Baso % (Auto) 0.6 % Neut # (Auto) 5.44 (1.40-6.50) K/uL Lymph # (Auto) 0.37 L (1.20-3.40) K/uL Cecil # (Auto) 0.52 (0.11-0.59) K/uL Eos # (Auto) 0.17 (0.00-0.50) K/uL Baso # (Auto) 0.04 (0.00-0.20) K/uL Immature Gran # (Auto) 0.03 (0.01-0.20) K/uL PT 14.0 H (9.0-12.0) Seconds INR 1.3 H (0.9-1.1) APTT 28 (21-31) Seconds PTT Ratio 1.0 Sodium 139 (136-145) mmol/L Potassium 4.6 (3.5-5.1) mmol/L Chloride 109 H (98-107) mmol/L Carbon Dioxide 19 L (21-32) mmol/L Anion Gap 11 (3-11) BUN 38 H (6-23) mg/dl Creatinine 2.05 H (0.6-1.4) mg/dl Est Cr Clr Drug Dosing 29.7 ml/min eGFR 32.55 BUN/Creatinine Ratio 18.5 (10-20) Glucose 96 (70-99(Fasting)) mg/dl Lactate 2.1 H* (0.4-2.0) mmol/L Calcium 8.5 L (8.6-10.3) mg/dl Magnesium 1.7 (1.7-2.4) mg/dl Total Bilirubin 0.9 (0.2-1.0) mg/dl Direct Bilirubin TNP AST 76 H (13-39) U/L ALT 32 (7-52) U/L Alkaline Phosphatase 152 H (34-104) U/L Troponin I High Sens 82.7 H* (0-20) pg/ml Total Protein 6.2 (6.0-8.3) gm/dl Albumin 3.0 L (3.4-5.0) gm/dl Procalcitonin 0.24 (0-0.5) ng/ml Urine Color Red Urine Appearance Turbid A (Clear) Urine pH 6.0 (4.5-7.5) Ur Specific [place] 1.025 (1.000-1.030) Urine Protein 3+ H (Negative) Urine Glucose (UA) Negative (Negative) Urine Ketones Trace H (Negative) Urine Blood 3+ H (Negative) Urine Nitrite Positive A (Negative) Urine Bilirubin 2+ H (Negative) Urine Urobilinogen Negative (Negative) Ur Leukocyte Esterase 1+ H (Negative) Urine RBC >20 H (0-2) /hpf Urine WBC 6-10 H (0-5) /hpf Ur Epithelial Cells 0-2 (0-2) /hpf Urine Bacteria 1+ H (None Seen) Blood Type O Negative Antibody Screen NEGATIVE Administered Medications Discontinued Medications Sodium Chloride (Nss) 1,000 mls @ 999 mls/hr IV .Q1H1M DANIEL Stop: 05/18/24 17:15 Last Infusion: 05/18/24 17:27 Dose: Infused Documented By: Admin: 05/18/24 16:20 Dose: 999 mls/hr Documented By: HAROON Cefepime HCl (Maxipime 2000mg) 2,000 mg in 20 mls @ 5 mls/min IV ONE ONE Stop: 05/18/24 16:48 Last Admin: 05/18/24 17:09 Dose: 5 mls/min Documented By: DONNA Miscellaneous (Patient's Height &/Or Weight Needed) 1 each N/A Q2H DANIEL Stop: 05/18/24 19:30 Last Admin: 05/18/24 18:06 Dose: Not Given Documented By: Admin: 05/18/24 17:00 Dose: Not Given Documented By: DONNA Imaging Data Radiologist's Impression: Chest X-Ray 05/18/24 16:07 INDICATION: Chest pain. TECHNIQUE: Frontal radiograph of the chest. COMPARISON: Radiograph from 02/28/2024. FINDINGS: Cardiomegaly. Right-sided dialysis catheter tip in the right atrium. Mild pulmonary vascular congestion. Small right greater than left pleural effusions with underlying atelectasis/airspace disease. No pneumothorax. No acute fracture. IMPRESSION: Mild pulmonary vascular congestion. Small right greater than left pleural effusions with underlying atelectasis/airspace disease. Electronically signed by Jacobo Cano 05-18-2024 4:39 PM Abdomen/Pelvis CT 05/18/24 16:14 INDICATION: Decreased urine output. Altered mental status COMPARISON: CT from 08/08/2023. TECHNIQUE: Axial CT images of the abdomen and pelvis were obtained without IV contrast administration. Coronal and sagittal reformations were reviewed. FINDINGS: Moderate volume right and small volume left pleural effusions with underlying atelectasis. Cardiomegaly. Heterogeneous/nodular appearance of the liver likely related to or cirrhosis. The gallbladder is surgically absent. Splenomegaly. The pancreas and adrenal glands appear unremarkable. Bilateral renal cysts, exophytic) with calcifications appear similar. Nonobstructing small left renal calculi. No hydronephrosis. No evidence of bowel obstruction/colitis/appendicitis. No free air. No drainable fluid collection. Anasarca. Atheromatous plaquing of the abdominal aorta without evidence of aneurysm. Urinary bladder wall thickening. Duran catheter in the urinary bladder. Bilateral inguinal hernias containing fat and small amount of ascites on the left. Degenerative changes in the spine. No acute osseous abnormality evident. IMPRESSION: 1. Moderate volume right and small volume left pleural effusions with underlying atelectasis. 2. Small volume ascites. Anasarca. 3. Cirrhosis. 4. Urinary bladder wall thickening. Flow catheter in the urinary bladder. 5. Renal cysts and renal calculi again noted. No hydronephrosis. Electronically signed by Jacobo Cano 05-18-2024 5:[address] 05/18/24 16:14 INDICATION: Altered mental status. COMPARISON: CT from 08/31/2023 TECHNIQUE: Axial CT images of the head were obtained without IV contrast. Coronal and sagittal reformations were reviewed. FINDINGS: Soria-white differentiation is relatively preserved. No mass, mass effect or midline shift. Chronic ischemic white matter changes. Basal ganglia calcifications. No evidence of acute large territorial infarction or acute intracranial hemorrhage. Ventricles appear normal in size. Basal cisterns are patent. No depressed calvarial fracture. IMPRESSION: No acute intracranial process. Electronically signed by Jacobo Cano 05-18-2024 5:11 PM Discharge Plan Visit Data Chief Complaint: Catheter Replacement Stated Complaint: BLOOD IN CATHETER ED Provider: Fuad Goncalves Discharge Problem: Hypotension, Anemia, Hematuria, Acute confusion, Acute dehydration, CRF (chronic renal failure) Patient Disposition: Admitted As Inpatient Condition: Fair Discharge Instructions Interventions: ED Discharge Assessment Last Done: 05/18/24 20:20 Discharge Problem: Hypotension Qualifiers: Hypotension type: unspecified hypotension type Qualified Code(s): I95.9 - Hypotension, unspecified Anemia Qualifiers: Anemia type: unspecified type Qualified Code(s): D64.9 - Anemia, unspecified Hematuria Qualifiers: Hematuria type: gross Qualified Code(s): R31.0 - Gross hematuria CRF (chronic renal failure) Qualifiers: Chronic kidney disease stage: unspecified stage Qualified Code(s): N18.9 - Chronic kidney disease, unspecified
[2024-05-18] MEDS: SODIUM CHLORIDE 0.9% 1,000 ML IV SCH (16:20)
--- NOTE | 2024-05-18 16:40 | XRay Report ---
INDICATION: Chest pain. TECHNIQUE: Frontal radiograph of the chest. COMPARISON: Radiograph from 02/28/2024. FINDINGS: Cardiomegaly. Right-sided dialysis catheter tip in the right atrium. Mild pulmonary vascular congestion. Small right greater than left pleural effusions with underlying atelectasis/airspace disease. No pneumothorax. No acute fracture. IMPRESSION: Mild pulmonary vascular congestion. Small right greater than left pleural effusions with underlying atelectasis/airspace disease. Electronically signed by Jacobo Cano 05-18-2024 4:39 PM
[2024-05-18 16:48] LABS: Basophils # (auto) 0.04 K/uL (0.00-0.20); Basophils % (auto) 0.6 %; Eosinophils # (auto) 0.17 K/uL (0.00-0.50); Eosinophils % (auto) 2.6 %; Hemoglobin 9.1 g/dl (14.0-18.0); Immature Granulocytes # (auto) 0.03 K/uL (0.01-0.20); Immature Granulocytes % (auto) 0.5 %; Lymphocytes # (auto) 0.37 K/uL (1.20-3.40); Lymphocytes % (auto) 5.6 %; Mean Corpuscular Hemoglobin 32.2 pg (25.0-34.0); Mean Corpuscular Hgb Conc 31.4 g/dL (32.0-36.0); Mean Corpuscular Volume 102.5 fL (80.0-100.0); Mean Platelet Volume 11.3 fL (9.4-12.4); Monocytes # (auto) 0.52 K/uL (0.11-0.59); Monocytes % (auto) 7.9 %; Neutrophils # (auto) 5.44 K/uL (1.40-6.50); Neutrophils % (auto) 82.8 %; Platelet Count 127 K/uL (130-400); RDW Coefficient of Variation 17.3 % (11.5-14.5); RDW Standard Deviation 65.4 fL (36.4-46.3); Red Blood Count 2.83 M/uL (4.70-6.10); White Blood Count 6.57 K/ul (4.8-10.8)
[2024-05-18 16:49] LABS: Appearance Urine Turbid (Clear); Bilirubin Urine 2+ (Negative); Blood Urine 3+ (Negative); Color Urine Red; Glucose Urine UA Negative (Negative); Ketones Urine Trace (Negative); Leukocyte Esterase Urine 1+ (Negative); Nitrite Urine Positive (Negative); Protein Urine 3+ (Negative); Specific Gravity Urine 1.025 (1.000-1.030); Urobilinogen Urine Negative (Negative)
[2024-05-18 16:57] LABS: Epithelial Cell Urine 0-2 /hpf (0-2); RBC Urine >20 /hpf (0-2)
[2024-05-18 16:58] LABS: Bacteria Urine 1+ (None Seen)
[2024-05-18] MEDS: Patient's HEIGHT &/or WEIGHT Needed SCH (17:00)
[2024-05-18] MEDS: CEFEPIME 2000MG 2,000 MG/20 ML SYR IV ONE (17:09)
[2024-05-18 17:10] LABS: INR 1.3 (0.9-1.1); Partial Thromboplastin Time 28 Seconds (21-31)
--- NOTE | 2024-05-18 17:11 | CT Scan Report ---
INDICATION: Decreased urine output. Altered mental status COMPARISON: CT from 08/08/2023. TECHNIQUE: Axial CT images of the abdomen and pelvis were obtained without IV contrast administration. Coronal and sagittal reformations were reviewed. FINDINGS: Moderate volume right and small volume left pleural effusions with underlying atelectasis. Cardiomegaly. Heterogeneous/nodular appearance of the liver likely related to or cirrhosis. The gallbladder is surgically absent. Splenomegaly. The pancreas and adrenal glands appear unremarkable. Bilateral renal cysts, exophytic) with calcifications appear similar. Nonobstructing small left renal calculi. No hydronephrosis. No evidence of bowel obstruction/colitis/appendicitis. No free air. No drainable fluid collection. Anasarca. Atheromatous plaquing of the abdominal aorta without evidence of aneurysm. Urinary bladder wall thickening. Duran catheter in the urinary bladder. Bilateral inguinal hernias containing fat and small amount of ascites on the left. Degenerative changes in the spine. No acute osseous abnormality evident. IMPRESSION: 1. Moderate volume right and small volume left pleural effusions with underlying atelectasis. 2. Small volume ascites. Anasarca. 3. Cirrhosis. 4. Urinary bladder wall thickening. Flow catheter in the urinary bladder. 5. Renal cysts and renal calculi again noted. No hydronephrosis. Electronically signed by Jacobo Cano 05-18-2024 5:11 PM
--- NOTE | 2024-05-18 17:11 | CT Scan Report ---
INDICATION: Altered mental status. COMPARISON: CT from 08/31/2023 TECHNIQUE: Axial CT images of the head were obtained without IV contrast. Coronal and sagittal reformations were reviewed. FINDINGS: Soria-white differentiation is relatively preserved. No mass, mass effect or midline shift. Chronic ischemic white matter changes. Basal ganglia calcifications. No evidence of acute large territorial infarction or acute intracranial hemorrhage. Ventricles appear normal in size. Basal cisterns are patent. No depressed calvarial fracture. IMPRESSION: No acute intracranial process. Electronically signed by Jacobo Cano 05-18-2024 5:11 PM
[2024-05-18 17:35] LABS: Alanine Aminotransferase 32 U/L (7-52); Alkaline Phosphatase 152 U/L (34-104); Anion Gap 11 (3-11); Aspartate Aminotransferase 76 U/L (13-39); BUN Creatinine Ratio 18.5 (10-20); Bilirubin,Total 0.9 mg/dl (0.2-1.0); Blood Urea Nitrogen 38 mg/dl (6-23); Calcium 8.5 mg/dl (8.6-10.3); Carbon Dioxide 19 mmol/L (21-32); Chloride 109 mmol/L (98-107); Creatinine Clr Calc Pharmacy 29.7 ml/min; Glucose 96 mg/dl (70-99(Fasting)); Magnesium 1.7 mg/dl (1.7-2.4); Potassium 4.6 mmol/L (3.5-5.1); Sodium 139 mmol/L (136-145); Total Protein 6.2 gm/dl (6.0-8.3); Troponin I High Sensitivity 82.7 pg/ml (0-20)
--- NOTE | 2024-05-18 17:51 | History & Physical Report ---
Date of Service May 18, 2024 Assessment & Plan (1) Urinary tract infection with hematuria: Plan: Marvin catheter in place; h/o UTIs w/o pseudomonas on cultures - CBC with H&H .08/04.0 - Not complaining of current symptoms - UA showing turbid appearance, 3+ protein, trace ketones, 3+ blood, positive nitrate, 2+ bilirubin, 1+ LE, RBC, WBC, 1+ bacteria; stop cefdinir - CTAP revealing moderate volume right and small volume left pleural effusions with underlying atelectasis, small volume ascites, ansa cardia, cirrhosis, urinary bladder wall thickening, Marvin catheter in urinary bladder, renal cyst and renal calculi noted without hydronephrosis - Has had to have dialysis in the past; port in left chest - Pending urine cx - Cefepime 1 g every 24 hours - Consider urology consult (2) Confusion: Plan: Onset 05/18, h/o encephalopathy with prior UTI - Lactate 1.4, pending repeat - Procalcitonin 0.24 - No ammonia at this time - CBC revealed chronic anemia, CMP revealing elevated creatinine and BUN - UA confirms infection- suspect this is the likely cause of acute onset confusion - CT head without acute findings - EKG normal sinus with first-degree AV block - Attempt to increase familiarity of setting and promote good sleep to prevent worsening of confusion/decline of mental status (3) Anemia in chronic kidney disease (CKD): Plan: H&H on admission .0; hematuria initially starting 05/15 - Continues to have hematuria in catheter bag - Previously on Coumadin, however no longer taking x weeks - PT 14, INR 1.3 - CBC every morning (4) Chronic kidney disease: Plan: Stage III - Baseline Cr 1.6 - Cr 2.05 - Given NSS 1L in ED; continue to promote oral fluids given current fluid shortage (5) CHF (congestive heart failure): Plan: Hypovolemic on exam today; not hypoxic or requiring O2 - I+Os - CXR revealing revealing mild pulmonary vascular congestion, small right greater than left pleural effusions with underlying atelectasis/airspace disease - Troponin 82.7, pending repeat - Most recent echo 02/29/2024-EF 50 to 55%, moderate dilation of RV, LA, RA, mechanical aortic valve in place, trace aortic regurgitation, severe tricuspid regurgitation, diastolic dysfunction grade 3 - Bumex 1 mg 3 times per week at home; hold until BPs improve (6) Diabetes mellitus, type 2: Plan: [id number] - Most recent A1c (02/19/2024) 5.1% - SSI with target BSG range 120-160mg/dL, CF 30, carb ratio 10 - BSG ACHS - Adjust regimen as needed - Pharm glycemic management consult placed (7) Thrombocytopenia: Plan: Per history - Platelets 127 - CBC a.m. (8) Hypothyroidism: Plan: Most recent TSH 02/19/2024 at 3.520 - Levothyroxine 75 mcg p.o. a.m. Plan Depression with anxiety- continue quetiapine, sertraline, clonazepam; consider holding clonazepam if confusion worsens GERD- lansoprazole BPH- tamsulosin 0.8 mg Dispo: Admit VTE Prophylaxis: SCDs Code: DNR/DNI Admission and Anticipated Discharge Date Admission Date: 05/18/2024 History of Present Illness Chief Complaint: Hematuria, confusion Primary Care Provider: Sho Bowman DO 79-year-old male presenting to ED for hours of hematuria, with associated confusion and weakness per the patient's . Was recently evaluated in ED 05/15 and discharged on cefdinir. ED course: CBC - RBC 2.83, H&H 9.1/29.0, MCV 102.5, MCHC 31.4, RDW 65.4, platelets 127; PT 14, INR 13; CMP - chloride 109, carbon dioxide 19, BUN 38, creatinine 2.05; lactate 2.1; calcium 8.5; AST 76, alk phosphatase 152, albumin 3; troponin 82.7; UA turbid appearance, 3+ protein, trace ketones, 3+ blood, positive nitrate, 2+ bilirubin, 1+ LE, RBC, WBC, 1+ bacteria.; CXR mild pulmonary vascular congestion, small right greater than left pleural effusion with underlying atelectasis/airspace disease.; CTAP moderate volume right and small volume left pleural effusions with underlying atelectasis, small volume ascites, its cardia, cirrhosis, urinary bladder wall thickening, Marvin catheter in urinary bladder, renal cyst and renal calculi noted; head CT no acute intracranial process.; EKG sinus rhythm with first- degree AV block, rate 70s. Provided with NSS 1 L, and cefepime 2 g in ED. Patient is a 79-year-old male with PMHx CKD with anemia, chronic Marvin catheter, hypothyroidism, cirrhosis, CHF, T2DM, GERD, and history of prostatic malignancy presenting for hematuria. is present at time of visit and able to provide majority of history as patient is a poor historian. States that on 05/15 patient was brought to the ED [facility] for hematuria that resolved while he was in the ED, and he was ultimately discharged home on cefdinir. On 05/16 patient was brought to a different ED for pressure wound on his upper buttocks, which was dressed and managed. Patient arriving today, 05/18, for recurrence of hematuria that has increased in nature. also states that the patient's mental status has declined, as he appears more confused and weak than normal. States that he continues to complain of being cold, but otherwise has not complained of anything else. Patient denies any pain when asked if he specifically has head, chest, or stomach pain. states patient has not had fever/chills, has not complained of shortness of breath, no vomiting or diarrhea, and no additional sick contacts. Please see Dr. Henao's attestation for adjustments/additions to treatment plan. Allergies Allergy/AdvReac Type Severity Reaction Status Date / Time plasma protein fraction Allergy Severe FROZEN Verified 02/28/24 18:35 PLASMA-- DEVELOPED HIVES Home Medications Medication Instructions Recorded Confirmed Type cholecalciferol (vitamin D3) 50 50 mcg PO QPM 10/07/22 05/15/24 History mcg (2,000 unit) capsule clonazepam 0.5 mg tablet 0.5 mg PO DAILY PRN Anxiety 10/07/22 05/15/24 History hydrocortisone acetate 1 % topical 1 applic topical BID PRN Skin 10/07/22 05/15/24 History cream Irritation sertraline 100 mg tablet 100 mg PO HS 11/25/22 05/15/24 History tamsulosin 0.4 mg capsule 0.8 mg PO QPM 11/25/22 05/15/24 History cyanocobalamin (vitamin B-12) 1,000 mcg PO DAILY 08/31/23 05/15/24 History 1,000 mcg tablet (Vitamin B-12) levothyroxine 75 mcg tablet 75 mcg PO QAM 08/31/23 05/15/24 History (Synthroid) lactulose 10 gram/15 mL oral syrup 30 g PO BID 01/22/24 05/15/24 History ondansetron 4 mg disintegrating 4 mg PO Q6H PRN Nausea And Vomiting 02/28/24 05/15/24 History tablet bumetanide 1 mg tablet 1 mg PO .3X WEEK 05/15/24 05/15/24 History cefdinir 300 mg capsule 300 mg PO BID #14 caps 05/15/24 Rx hydroxyzine HCl 10 mg tablet 10 mg PO BID PRN Itching 05/15/24 05/15/24 History lansoprazole 30 mg capsule,delayed 30 mg PO BID 05/15/24 05/15/24 History release quetiapine 25 mg tablet 25 mg PO QAM 05/15/24 05/15/24 History quetiapine 50 mg tablet 50 mg PO HS 05/15/24 05/15/24 History Past Med/Surg History Problem List (Updated 05/18/24 @ 18:42 by Jn Singh PA-C) Urinary tract infection with hematuria Encephalopathy Confusion (Acute) Generalized weakness (Acute) Hematuria (Acute) Chronic anticoagulation Anemia in chronic kidney disease (CKD) Rectal bleeding pt's reports ongoing rectal bleeding (GI is aware) since XRT for prostate Ca; pt takes iron supplement Hx of aortic valve replacement, mechanical 1989 Urethral stricture Urge incontinence Delirium Thrombocytopenia Hypothyroidism Failure to thrive in adult Pleural effusion (Acute) Anemia (Acute) Generalized weakness (Acute) Cirrhosis Diarrhea CHF (congestive heart failure) (Acute) S/P AVR Weakness Encounter for pre-operative examination Diabetes mellitus, type 2 NIDDM GERD (gastroesophageal reflux disease) Hx of prostatic malignancy Spring 2020 Treated with radiation treatments Hx of aortic aneurysm ascending aortic aneurysm s/p dissection 05/2019 and subsequent repair of aortic root (28mm Gelweave graft) Prostate cancer Medical History Non-ST elevated myocardial infarction (non-STEMI) Acute kidney injury superimposed on CKD Gross hematuria Chronic kidney disease Hypothyroidism Hx of aortic aneurysm ascending aortic aneurysm s/p dissection 05/2019 and subsequent repair of aortic root (28mm Gelweave graft) Failure to thrive in adult admission [facility] 08/31/23-09/12/23. pt's states that he has improved slightly since d/c (he has also since had an admission to [facility] since that time per ; unknown dx) Thrombocytopenia Prostate CA XRT 2020; Rezum 12/05/22 Dementia pt had significant confusion during 09/2023 admission [facility]; states that he is 'much better' at home. she also notes increased confusion after General Anesthesia GERD (gastroesophageal reflux disease) Portal hypertension Diabetes type 2, controlled metformin d/c during [facility] admission 2/2 hypoglycemia (pt has been having GI issues and has not been eating normal diet) Cirrhosis follows with GI Anemia pt's reports ongoing rectal bleeding (GI is aware) since XRT for prostate Ca; pt takes iron supplement; recent iron infusions and procrit injections (02/12/24 and will have another on 02/19/24) Generalized weakness uses cane to ambulate Urinary tract infection recurrent; follows with urology Nausea & vomiting current sx; following with GI CHF (congestive heart failure) follows with [facility] Osteoarthritis Anxiety Hypertension meds reduced during 09/2023 [facility] admission 2/2 hypotension Suspected sleep apnea unaware History of COVID-19 x2 ; 10/2022 most recent (pt was asymptomatic); no ongoing sx History of fractured vertebra Cervical fracture 11/18/21- medical management recommended, follows with physical therapy, "full ROM" per patient Surgical History History of endoscopy capsule endoscopy History of flexible sigmoidoscopy History of colonoscopy History of cholecystectomy History of appendectomy History of prostate surgery multiple; most recent Rezu 12/05/22: MAC without issue History of aortic aneurysm repair 05/2021 in [facility] Follows with [facility] Family History Mother Diabetes Hypertension Father Diabetes Other No family history of adverse response to anesthesia Social History Smoking Status: Never smoker Second Hand Exposure: No; Do You Dip or Chew Tobacco: No; Hx Alcohol Use: No Hx Substance Use: No Preferred Language: Korean Communication Ability: Effective Inter Fold Roll Cutter Required: No Beliefs That Will Affect Care: None marital status: Current Living Situation: Spouse current occupational status: retired Feels Safe at Home: Yes Assistive Devices: Cane and Walker Review of Systems Review of Systems: All systems reviewed & are unremarkable except as noted in Subjective Physical Exam Physical Exam: General: No acute distress Skin: Warm and dry Head: Normocephalic, atraumatic Eyes: PERRL, conjunctivae clear, sclera non-icteric; wearing glasses EENT: Hearing aids Neck: Supple, no LAD Cardio: Systolic murmur noted; RRR, no G/R; dialysis port L chest without erythema, edema, or drainage Resp: Appears to be breathing harder than baseline with belly breathing but O2 sat 97 on RA; Anterior lungs CTA in all lobes no wheezes, rales, or rhonchi Abdomen: Soft, symmetric, nontender; Multiple visible surgical scars; no distention; Upper quadrant abdominal hernia; No additional masses or hepatosplenomegaly MSK: No deformities; pulses palpable and equal; no edema. : Marvin catheter in place with gross blood in bag and throughout tube; posterior upper buttock with dressing in place from pressure wound Neuro: Awake, alert Psych: Appropriate mood and affect present in room at time of visit Results & Data Results & Data Vital Signs (Past 12 Hours) Vital Signs Temp Pulse Pulse Resp BP BP Pulse Ox 05/18/24 16:58 72 109/67 97 05/18/24 16:36 73 05/18/24 16:35 72 16 98 05/18/24 15:58 36.6 C 73 18 105/70 94 O2 Del Method 05/18/24 16:58 Room Air 05/18/24 16:36 05/18/24 16:35 Room Air 05/18/24 15:58 Room Air Laboratory Results 05/18/24 16:30 Urine Culture - Pending Urine,Indwelling Cath 05/18/24 16:29 Aerobic Blood Culture - Pending Blood Anaerobic Blood Culture - Pending 05/18/24 16:24 Aerobic Blood Culture - Pending Blood Anaerobic Blood Culture - Pending 05/18/24 05/18/24 05/18/24 16:30 16:29 16:24 WBC 6.57 RBC 2.83 L Hgb 9.1 L Hct 29.0 L MCV 102.5 H MCH 32.2 MCHC 31.4 L RDW Std Deviation 65.4 H RDW Coeff of Nick 17.3 H Plt Count 127 L MPV 11.3 Immature Gran % (Auto) 0.5 Neut % (Auto) 82.8 Lymph % (Auto) 5.6 P[place] % (Auto) 7.9 Eos % (Auto) 2.6 Baso % (Auto) 0.6 Neut # (Auto) 5.44 Lymph # (Auto) 0.37 L [place] # (Auto) 0.52 Eos # (Auto) 0.17 Baso # (Auto) 0.04 Immature Gran # (Auto) 0.03 PT 14.0 H INR 1.3 H APTT 28 PTT Ratio 1.0 Sodium 139 Potassium 4.6 Chloride 109 H Carbon Dioxide 19 L Anion Gap 11 BUN 38 H Creatinine 2.05 H Est Cr Clr Drug Dosing 29.7 eGFR 32.55 BUN/Creatinine Ratio 18.5 Glucose 96 Lactate 2.1 H* Calcium 8.5 L Magnesium 1.7 Total Bilirubin 0.9 Direct Bilirubin TNP AST 76 H ALT 32 Alkaline Phosphatase 152 H Troponin I High Sens 82.7 H* Total Protein 6.2 Albumin 3.0 L Procalcitonin 0.24 Urine Color Red Urine Appearance Turbid A Urine pH 6.0 Ur Specific Baldwin 1.025 Urine Protein 3+ H Urine Glucose (UA) Negative Urine Ketones Trace H Urine Blood 3+ H Urine Nitrite Positive A Urine Bilirubin 2+ H Urine Urobilinogen Negative Ur Leukocyte Esterase 1+ H Urine RBC >20 H Urine WBC 6-10 H Ur Epithelial Cells 0-2 Urine Bacteria 1+ H Blood Type O Negative Antibody Screen NEGATIVE Diagnostic Findings Chest X-Ray 05/18/24 16:07 INDICATION: Chest pain. TECHNIQUE: Frontal radiograph of the chest. COMPARISON: Radiograph from 02/28/2024. FINDINGS: Cardiomegaly. Right-sided dialysis catheter tip in the right atrium. Mild pulmonary vascular congestion. Small right greater than left pleural effusions with underlying atelectasis/airspace disease. No pneumothorax. No acute fracture. IMPRESSION: Mild pulmonary vascular congestion. Small right greater than left pleural effusions with underlying atelectasis/airspace disease. Electronically signed by Jacobo Cano 05-18-2024 4:39 PM Abdomen/Pelvis CT 05/18/24 16:14 INDICATION: Decreased urine output. Altered mental status COMPARISON: CT from 08/08/2023. TECHNIQUE: Axial CT images of the abdomen and pelvis were obtained without IV contrast administration. Coronal and sagittal reformations were reviewed. FINDINGS: Moderate volume right and small volume left pleural effusions with underlying atelectasis. Cardiomegaly. Heterogeneous/nodular appearance of the liver likely related to or cirrhosis. The gallbladder is surgically absent. Splenomegaly. The pancreas and adrenal glands appear unremarkable. Bilateral renal cysts, exophytic) with calcifications appear similar. Nonobstructing small left renal calculi. No hydronephrosis. No evidence of bowel obstruction/colitis/appendicitis. No free air. No drainable fluid collection. Anasarca. Atheromatous plaquing of the abdominal aorta without evidence of aneurysm. Urinary bladder wall thickening. Marvin catheter in the urinary bladder. Bilateral inguinal hernias containing fat and small amount of ascites on the left. Degenerative changes in the spine. No acute osseous abnormality evident. IMPRESSION: 1. Moderate volume right and small volume left pleural effusions with underlying atelectasis. 2. Small volume ascites. Anasarca. 3. Cirrhosis. 4. Urinary bladder wall thickening. Flow catheter in the urinary bladder. 5. Renal cysts and renal calculi again noted. No hydronephrosis. Electronically signed by Jacobo Cano 05-18-2024 5:[address] 05/18/24 16:14 INDICATION: Altered mental status. COMPARISON: CT from 08/31/2023 TECHNIQUE: Axial CT images of the head were obtained without IV contrast. Coronal and sagittal reformations were reviewed. FINDINGS: Soria-white differentiation is relatively preserved. No mass, mass effect or midline shift. Chronic ischemic white matter changes. Basal ganglia calcifications. No evidence of acute large territorial infarction or acute intracranial hemorrhage. Ventricles appear normal in size. Basal cisterns are patent. No depressed calvarial fracture. IMPRESSION: No acute intracranial process. Electronically signed by Jacobo Cano 05-18-2024 5:11 PM Code Status & VTE Plan Code Status DNR/DNI Supervising Physician Co-Signing Physician Notes Patient seen and examined, chart reviewed, case discussed with Jn Singh PA-C and I agree with the assessment and plan as above except as otherwise noted Labs and images reviewed Maicol is a 79yo M with hx of chronic indwelling marvin catheter, rectal bleeding intermittent w hx of radiation proctitis, hematuria, prior hypotensive enceophalopathy w/ UTIs who presents with hematuria, confusion, hypotension, and increased hematuria. Hgb 9, baseline 8-9.4. CT-A/P, CT-H without acute findings. Trop elevated without chest pain. Repeat pending. Volume contracted. Lactate is mildly elevated. Patient with similar symptoms with prior UTIs. Urine is slightly improved but remains infected appearing, limited and with indwelling catheter. Exchange pending. Prior cultures without resistant organisms. Will treat with cefepime while pending repeat UCx results. Given volume contraction and elevated lactate patient has been treated 1 L of NSS. At time of assessment he is not hypotensive, tachycardic, febrile or with leukocytosis. In the setting of critical IV fluid shortage will encourage orals and reassess for fluids as clinically indicated. Repeat lactate is pending. Repeat troponin is pending, suspect demand. Agree with above PG Care Time/CCT Total # of Minutes Spent Total Time Spent with Patient: Total time spent is greater than 50% in coordination of care (as documented) at patient's floor/unit and/or counseling patient: Coding Level of Care Code 02754 INT INP/OBS CARE 3/75MIN Diagnoses Urinary tract infection with hematuria N39.0; R31.9 Confusion R41.0 Anemia in chronic kidney disease (CKD) N18.9; D63.1 Chronic kidney disease N18.9 CHF (congestive heart failure) I50.9 Diabetes mellitus, type 2 E11.9 Thrombocytopenia D69.6 Hypothyroidism E03.9 Time Spent (min) 80
[2024-05-18] MEDS ORDERED: GLUCOSE 10 TAB/TUBE PO PRN (22:16)
[2024-05-18] MEDS ORDERED: POLYETHYLENE (MIRALAX) 17 GM PACK PO PRN (22:16)
[2024-05-18] MEDS ORDERED: GLUCOSE 40% GEL 15 GM TUBE PO PRN (22:16)
[2024-05-18] MEDS ORDERED: CARBOHYDRATES FOR HYPOGLYCEMIA PO PRN (22:16)
[2024-05-18] MEDS ORDERED: GLUCAGON FOR INJ 1 MG VIAL SQ PRN (22:16)
[2024-05-18] MEDS ORDERED: DEXTROSE 50% 50 ML SYRINGE IV PRN (22:16)
[2024-05-18] MEDS ORDERED: PHARMACY GLYCEMIC MGMT CONSULT PRN (22:16)
[2024-05-18] MEDS ORDERED: ALUMINUM/MAGNESIUM SUSP 30 ML UDC PO PRN (22:16)
[2024-05-18] MEDS ORDERED: clonazePAM 0.5 MG TAB PO PRN (22:20)
[2024-05-19] MEDS: METOPROLOL TARTRATE 25 MG TAB PO SCH (00:15)
[2024-05-19] MEDS: LEVOTHYROXINE SODIUM 75 MCG TABLET PO SCH (05:44)
[2024-05-19 06:08] LABS: Basophils # (auto) 0.02 K/uL (0.00-0.20); Basophils % (auto) 0.4 %; Eosinophils # (auto) 0.16 K/uL (0.00-0.50); Eosinophils % (auto) 3.5 %; Hematocrit (blood only) 24.9 % (42.0-52.0); Hemoglobin 7.7 g/dl (14.0-18.0); Immature Granulocytes # (auto) 0.02 K/uL (0.01-0.20); Immature Granulocytes % (auto) 0.4 %; Lymphocytes % (auto) 8.8 %; Mean Corpuscular Hemoglobin 31.6 pg (25.0-34.0); Mean Corpuscular Hgb Conc 30.9 g/dL (32.0-36.0); Mean Platelet Volume 10.6 fL (9.4-12.4); Monocytes # (auto) 0.42 K/uL (0.11-0.59); Monocytes % (auto) 9.2 %; Neutrophils # (auto) 3.53 K/uL (1.40-6.50); Neutrophils % (auto) 77.7 %; Platelet Count 100 K/uL (130-400); RDW Coefficient of Variation 17.2 % (11.5-14.5); RDW Standard Deviation 65.2 fL (36.4-46.3); Red Blood Count 2.44 M/uL (4.70-6.10); White Blood Count 4.55 K/ul (4.8-10.8)
[2024-05-19 06:29] LABS: Albumin Level 2.6 gm/dl (3.4-5.0); BUN Creatinine Ratio 20.4 (10-20); Bilirubin,Total 0.9 mg/dl (0.2-1.0); Calcium 8.1 mg/dl (8.6-10.3); Creatinine Clr Calc Pharmacy 30.3 ml/min; Globulin 2.7 gm/dl (2.5-4.0); Total Protein 5.3 gm/dl (6.0-8.3)
[2024-05-19 06:41] LABS: RBC Morphology Unremarkable
[2024-05-19] MEDS: LACTULOSE SYRUP 30 GM/45 ML UDP PO SCH (08:25)
[2024-05-19] MEDS: rifAXIMin 550 MG TABLET PO SCH (08:26)
[2024-05-19] MEDS: QUEtiapine FUMARATE 25 MG TABLET PO SCH ×2 (08:27→20:29)
[2024-05-19] MEDS: PANTOprazole 40 MG TAB PO SCH (08:27)
[2024-05-19] MEDS: INSULIN ASPART PER UNIT CHARGE SC SCH (09:09)
[2024-05-19] MEDS: INFLUENZA VACC TS2024-25(65y+)/PF (IIV3) 0.5mL Syr IM ONE (11:36)
[2024-05-19 14:43] LABS: Hematocrit (blood only) 25.6 % (42.0-52.0); Hemoglobin 8.1 g/dl (14.0-18.0); Mean Corpuscular Hemoglobin 32.3 pg (25.0-34.0); Mean Corpuscular Hgb Conc 31.6 g/dL (32.0-36.0); Mean Platelet Volume 10.5 fL (9.4-12.4); Platelet Count 104 K/uL (130-400); RDW Coefficient of Variation 17.2 % (11.5-14.5); RDW Standard Deviation 65.9 fL (36.4-46.3); Red Blood Count 2.51 M/uL (4.70-6.10); White Blood Count 5.16 K/ul (4.8-10.8)
--- NOTE | 2024-05-19 15:46 | Hospitalist Progress Note ---
Date of Service May 19, 2024 Assessment & Plan (1) Urinary tract infection with hematuria: Plan: Duran catheter in place; h/o UTIs w/o pseudomonas on cultures - CBC reviewed 05/19: hgb 7.7, repeat PM 8.1, plt 100 -plan to transfuse if hgb <7 -thrombocytopenic in setting of cirrhosis -BMP reviewed 05/19: creatine 2.01, BUN 41, electrolytes stable. -procal 05/18: 0.24 - UA showing turbid appearance, 3+ protein, trace ketones, 3+ blood, positive nitrate, 2+ bilirubin, 1+ LE, RBC, WBC, 1+ bacteria UC prelim <1000 colonies. await final report. BC pending - CTAP revealing moderate volume right and small volume left pleural effusions with underlying atelectasis, small volume ascites, ansa cardia, cirrhosis, urinary bladder wall thickening, Duran catheter in urinary bladder, renal cyst and renal calculi noted without hydronephrosis - Has had to have dialysis in the past; port in left chest - Cefepime 1 g every 24 hours -Urology consulted, appreciate recommendations. AM CBC, BMP (2) Confusion: Plan: Onset 05/18, h/o encephalopathy with prior UTI - Lactate 1.4 - Procalcitonin 0.24 - No ammonia at this time - UA confirms infection- suspect this is the likely cause of acute onset confusion - CT head without acute findings - EKG normal sinus with first-degree AV block - Attempt to increase familiarity of setting and promote good sleep to prevent worsening of confusion/decline of mental status (3) Anemia in chronic kidney disease (CKD): Plan: H&H on admission 9.1/29.0; hematuria initially starting 05/15 - Continues to have hematuria in catheter bag - Previously on Coumadin, however no longer taking x weeks - PT 14, INR 1.3 - CBC every morning (4) Chronic kidney disease: Plan: Stage III - Baseline Cr 1.6 - 2.0 - Cr 2.05 - Given NSS 1L in ED; continue to promote oral fluids given current fluid shortage AM BMP (5) CHF (congestive heart failure): Plan: Hypovolemic on exam today; not hypoxic or requiring O2 - I+Os - CXR revealing revealing mild pulmonary vascular congestion, small right greater than left pleural effusions with underlying atelectasis/airspace disease - Troponin 82.7, repeat 76.6 likely demand due to absence of CP, SOB, EKG without ishemic changes. - Most recent echo 02/29/2024-EF 50 to 55%, moderate dilation of RV, LA, RA, mechanical aortic valve in place, trace aortic regurgitation, severe tricuspid regurgitation, diastolic dysfunction grade 3 - Bumex 1 mg 3 times per week at home; hold until BPs improve (6) Diabetes mellitus, type 2: Plan: [id number]-oszveaafi - Most recent A1c (02/19/2024) 5.1% - discontinued Novolog - continue to monitor blood glucose. - patient not on PO medications outpatient. Plan Depression with anxiety- continue quetiapine, sertraline, clonazepam; consider holding clonazepam if confusion worsens GERD- lansoprazole BPH- tamsulosin 0.8 mg Hypothyroidism: synthroid Dispo: Admit VTE Prophylaxis: SCDs Code: DNR/DNI Admission and Anticipated Discharge Date Admission Date: May 18, 2024 Subjective Patient seen and examined. Patient resting at encounter. no history obtained from patient. Physical Exam 2 Constitutional: WD/WN, vitals as above Eyes: PERRL, conjunctivae normal, anicteric sclerae Respiratory: breathing unlabored Cardiovascular: well perfused Results & Data Results & Data Vital Signs (Past 12 Hours) Vital Signs Temp Pulse Pulse Resp BP Pulse Ox O2 Del Method 05/19/24 13:54 70 05/19/24 10:16 Room Air 05/19/24 07:49 36.6 C 75 20 106/62 99 Room Air 05/19/24 06:53 71 Laboratory Results 05/19/24 14:28 05/19/24 05:25 PG Care Time/CCT Total # of Minutes Spent Total Time Spent with Patient: Total time spent is greater than 50% in coordination of care (as documented) at patient's floor/unit and/or counseling patient: Coding Level of Care Code 45772 SUB INP/OBS CARE 2/35MIN Diagnoses Urinary tract infection with hematuria N39.0; R31.9 Confusion R41.0 Anemia in chronic kidney disease (CKD) N18.9; D63.1 Chronic kidney disease N18.9 CHF (congestive heart failure) I50.9 Diabetes mellitus, type 2 E11.9
--- NOTE | 2024-05-19 17:24 | Urology Consultation ---
Date of Consultation May 19, 2024 Assessment & Plan (1) Hematuria: (2) Acute confusion: (3) Urethral stricture: Plan 79-year-old male with multiple medical comorbidities. He has a history of prostate cancer status post radiation who then went into urinary retention. He had a rezum on 12/05/2022 and passed a void trial. He developed a urethral stricture after this and underwent an Optilume balloon dilation on 02/25/2024. He was admitted shortly afterwards for UTI. He did pass a void trial prior before going home. He was admitted to the hospital today due to suspected UTI with hematuria. Catheter had maroon blood in the tubing so I irrigated this with 750 cc of sterile water with return of roughly 10 cc of clot. Urine was light pink at the end and this was set back up to gravity drainage. Nursing can hand irrigate if necessary Continue antibiotics and follow-up cultures Maintain Duran catheter. Depending on patient's hospital course can determine catheter plan closer to discharge Urology to follow History of Present Illness Attending Physician: Cm Elder History of Present Illness 79-year-old male with multiple medical comorbidities. He has a history of prostate cancer status post radiation who then went into urinary retention. He had a rezum on 12/05/2022 and passed a void trial. He developed a urethral stricture after this and underwent an Optilume balloon dilation on 02/25/2024. He was admitted shortly afterwards for UTI. He did pass a void trial prior before going home. He was admitted to the hospital today due to suspected UTI with hematuria. Labs showed white blood cell count of 5.1, hemoglobin of 8.1, creatinine of 2.01 which is roughly his baseline, and a urine culture which has no significant growth. He is currently on cefepime. He had a CT scan of the abdomen pelvis performed which did not show any acute urologic abnormalities. Difficult to get a history from the patient as he is still altered. Allergies Allergy/AdvReac Type Severity Reaction Status Date / Time plasma protein fraction Allergy Severe FROZEN Verified 05/18/24 19:42 PLASMA-- DEVELOPED HIVES Home Medications Medication Instructions Recorded Confirmed Type cholecalciferol (vitamin D3) 50 50 mcg PO QPM 10/07/22 05/18/24 History mcg (2,000 unit) capsule clonazepam 0.5 mg tablet 0.5 mg PO DAILY PRN Anxiety 10/07/22 05/18/24 History hydrocortisone acetate 1 % topical 1 applic topical BID PRN Skin 10/07/22 05/18/24 History cream Irritation sertraline 100 mg tablet 100 mg PO HS 11/25/22 05/18/24 History tamsulosin 0.4 mg capsule 0.8 mg PO QPM 11/25/22 05/18/24 History cyanocobalamin (vitamin B-12) 1,000 mcg PO DAILY 08/31/23 05/18/24 History 1,000 mcg tablet (Vitamin B-12) levothyroxine 75 mcg tablet 75 mcg PO QAM 08/31/23 05/18/24 History (Synthroid) lactulose 10 gram/15 mL oral syrup 30 g PO BID 01/22/24 05/18/24 History ondansetron 4 mg disintegrating 4 mg PO Q6H PRN Nausea And Vomiting 02/28/24 05/18/24 History tablet bumetanide 1 mg tablet 1 mg PO .3X WEEK 05/15/24 05/18/24 History cefdinir 300 mg capsule 300 mg PO BID #14 caps 05/15/24 05/18/24 Rx hydroxyzine HCl 10 mg tablet 10 mg PO BID PRN Itching 05/15/24 05/18/24 History lansoprazole 30 mg capsule,delayed 30 mg PO BID 05/15/24 05/18/24 History release quetiapine 25 mg tablet 25 mg PO QAM 05/15/24 05/18/24 History quetiapine 50 mg tablet 50 mg PO HS 05/15/24 05/18/24 History metoprolol tartrate 25 mg tablet 25 mg PO BID 05/18/24 05/18/24 History rifaximin 550 mg tablet (Xifaxan) 550 mg PO BID 05/18/24 05/18/24 History Patient History Medical History Non-ST elevated myocardial infarction (non-STEMI) Acute kidney injury superimposed on CKD Gross hematuria Chronic kidney disease Hypothyroidism Hx of aortic aneurysm ascending aortic aneurysm s/p dissection 05/2019 and subsequent repair of aortic root (28mm Gelweave graft) Failure to thrive in adult admission [facility] 08/31/23-09/12/23. pt's states that he has improved slightly since d/c (he has also since had an admission to [facility] since that time per ; unknown dx) Thrombocytopenia Prostate CA XRT 2020; Rezum 12/05/22 Dementia pt had significant confusion during 09/2023 admission [facility]; states that he is 'much better' at home. she also notes increased confusion after General Anesthesia GERD (gastroesophageal reflux disease) Portal hypertension Diabetes type 2, controlled metformin d/c during [facility] admission 2/2 hypoglycemia (pt has been having GI issues and has not been eating normal diet) Cirrhosis follows with GI Anemia pt's reports ongoing rectal bleeding (GI is aware) since XRT for prostate Ca; pt takes iron supplement; recent iron infusions and procrit injections (02/12/24 and will have another on 02/19/24) Generalized weakness uses cane to ambulate Urinary tract infection recurrent; follows with urology Nausea & vomiting current sx; following with GI CHF (congestive heart failure) follows with [facility] Osteoarthritis Anxiety Hypertension meds reduced during 09/2023 [facility] admission 2/2 hypotension Suspected sleep apnea unaware History of COVID-19 x2 ; 10/2022 most recent (pt was asymptomatic); no ongoing sx History of fractured vertebra Cervical fracture 11/18/21- medical management recommended, follows with physical therapy, "full ROM" per patient Surgical History History of endoscopy capsule endoscopy History of flexible sigmoidoscopy History of colonoscopy History of cholecystectomy History of appendectomy History of prostate surgery multiple; most recent Rezu 12/05/22: MAC without issue History of aortic aneurysm repair 05/2021 in [facility] Follows with [facility] Family History Mother Diabetes Hypertension Father Diabetes Other No family history of adverse response to anesthesia Social History Smoking Status: Never smoker Second Hand Exposure: No; Do You Dip or Chew Tobacco: No; Hx Alcohol Use: No Hx Substance Use: No Preferred Language: Mongolian Communication Ability: Impaired Balance Truing Inspector Required: No Beliefs That Will Affect Care: None marital status: Current Living Situation: Spouse current occupational status: retired Other Information That Helps Us Care for You: No Feels Safe at Home: Yes Safety Concerns: Feels Safe At This Time Assistive Devices: Walker and Wheelchair Physical Exam Physical Exam: General: Alert and oriented, no acute distress HEENT: Normocephalic, mucous membranes moist Pulmonary: Nonlabored respirations Abdomen: Nondistended : 16 Maltese Duran catheter draining maroon urine. Extremities: Moves all 4 spontaneously Neuro: No gross deficits Skin: Warm, dry, no rashes noted Results & Data Vital Signs (Past 12 Hours) Vital Signs Temp Pulse Pulse Resp BP Pulse Ox O2 Del Method 05/19/24 16:16 36.6 C 54 L 16 106/61 94 Room Air 05/19/24 13:54 70 05/19/24 10:16 Room Air 05/19/24 07:49 36.6 C 75 20 106/62 99 Room Air 05/19/24 06:53 71 PG Care Time/CCT Total # of Minutes Spent Total Time Spent with Patient: Total time spent is greater than 50% in coordination of care (as documented) at patient's floor/unit and/or counseling patient: Coding Level of Care Code 35854 INT INP/OBS CARE 2/55MIN Diagnoses Hematuria R31.0 Hematuria type: gross Acute confusion R41.0 Urethral stricture N35.919 (1) Hematuria Hematuria type: gross Qualified Code(s): R31.0 - Gross hematuria
[2024-05-19] MEDS: CEFEPIME 1000MG 1,000 MG/10 ML SYR IV SCH (18:35)
[2024-05-19] MEDS: TAMSULOSIN HCL 0.4 MG CAP PO SCH (20:29)
[2024-05-19] MEDS: SERTRALINE HCL 100 MG TABLET PO SCH (20:29)
[2024-05-20 07:46] LABS: Hematocrit (blood only) 23.6 % (42.0-52.0); Hemoglobin 7.5 g/dl (14.0-18.0); Mean Corpuscular Hemoglobin 32.6 pg (25.0-34.0); Mean Corpuscular Hgb Conc 31.8 g/dL (32.0-36.0); Mean Corpuscular Volume 102.6 fL (80.0-100.0); RDW Coefficient of Variation 17.3 % (11.5-14.5); RDW Standard Deviation 65.4 fL (36.4-46.3); White Blood Count 3.78 K/ul (4.8-10.8)
[2024-05-20 07:56] LABS: Albumin Level 2.6 gm/dl (3.4-5.0); BUN Creatinine Ratio 18.9 (10-20); Bilirubin,Total 0.9 mg/dl (0.2-1.0); Calcium 8.1 mg/dl (8.6-10.3); Creatinine Clr Calc Pharmacy 25.1 ml/min; Globulin 2.6 gm/dl (2.5-4.0); Potassium 4.2 mmol/L (3.5-5.1); Total Protein 5.2 gm/dl (6.0-8.3)
[2024-05-20 08:09] LABS: Mean Platelet Volume 10.5 fL (9.4-12.4); Platelet Count 92 K/uL (130-400)
[2024-05-20 08:10] LABS: Basophils # (auto) 0.02 K/uL (0.00-0.20); Basophils % (auto) 0.5 %; Eosinophils % (auto) 2.6 %; Immature Granulocytes # (auto) 0.02 K/uL (0.01-0.20); Immature Granulocytes % (auto) 0.5 %; Lymphocytes # (auto) 0.41 K/uL (1.20-3.40); Lymphocytes % (auto) 10.8 %; Monocytes # (auto) 0.37 K/uL (0.11-0.59); Monocytes % (auto) 9.8 %; Neutrophils # (auto) 2.86 K/uL (1.40-6.50); Neutrophils % (auto) 75.8 %; Platelet Estimate Decreased (Normal); RBC Morphology Unremarkable
[2024-05-20] MEDS: hydrOXYzine HCl 10 MG TAB PO PRN (08:37)
[2024-05-20] MEDS: LACTATED RINGER'S 1,000 ML IV SCH (08:47)
--- NOTE | 2024-05-20 09:35 | Urology Progress Note ---
<Statement entered by Maicol Silva MD - 05/20/24 12:23> I have discussed Mr. Jarquin's case with CHARI Bell and agree with the above documentation. As long as catheter is continuing to drain, would continue to monitor. If it becomes clogged/clotted, would hand irrigate to remove any obstruction. Would hold off CBI for now. Please call with any questions or concerns. -Maicol Silva MD. Date of Service May 20, 2024 Assessment & Plan (1) Hematuria: (2) Acute confusion: (3) Urethral stricture: Plan 79-year-old male seen by urology for gross hematuria/acute UTI in the hospital. He has a history of prostate cancer status post radiation who then went into urinary retention. He had a rezum on 12/05/2022 and passed a void trial. He developed a urethral stricture after this and underwent an Optilume balloon dilation on 02/25/2024. He was admitted shortly afterwards for UTI. He did pass a void trial prior before going home. He was admitted 05/19 due to suspected UTI with hematuria. Catheter draining maroon blood without clots Labs-WBCs 3.78, hemoglobin 7.5, creatinine 2.43 Nursing can continue hand irrigation if necessary Blood cultures after 24 hours and preliminary urine culture showing no growth Currently on cefepime Trend antibiotics pending culture results Other medical management and other care per primary team Urology will sign out Will send follow-up task to arrange outpatient follow-up Admission and Anticipated Discharge Date Admission Date: May 18, 2024 Subjective Patient examined at bedside Resting comfortably in bed Exam limited to limited hearing/confusion He is denying pain Denying other acute urological concerns Review of Systems Constitutional: as per Subjective / HPI Genitourinary: + as per Subjective / HPI Physical Exam Constitutional: average body habitus; no acute distress ENMT: Ears: + hearing impairment Respiratory: normal respiratory effort and able to speak in complete sentences Musculoskeletal: Extremities: extremities normal to inspection Psychiatric: Orientation: alert Results & Data Vital Signs (Past 12 Hours) Vital Signs Temp Pulse Pulse Pulse Resp BP BP 05/20/24 07:46 36.5 C 69 17 97/54 L 05/20/24 07:22 05/20/24 07:06 68 05/20/24 03:14 36.7 C 72 18 92/54 L 05/19/24 23:52 36.6 C 72 18 104/62 05/19/24 22:18 68 05/19/24 21:42 Pulse Ox O2 Del Method 05/20/24 07:46 93 Room Air 05/20/24 07:22 Room Air 05/20/24 07:06 05/20/24 03:14 93 Room Air 05/19/24 23:52 95 Room Air 05/19/24 22:18 05/19/24 21:42 Room Air PG Care Time/CCT Total # of Minutes Spent Total Time Spent with Patient: Total time spent is greater than 50% in coordination of care (as documented) at patient's floor/unit and/or counseling patient: Coding Level of Care Code 15780 SUB INP/OBS CARE 2/35MIN Diagnoses Hematuria R31.0 Hematuria type: gross Acute confusion R41.0 Urethral stricture N35.919 (1) Hematuria Hematuria type: gross Qualified Code(s): R31.0 - Gross hematuria
--- NOTE | 2024-05-20 13:43 | Hospitalist Progress Note ---
Date of Service May 20, 2024 Assessment & Plan (1) Urinary tract infection with hematuria: Plan: Marvin catheter in place; h/o UTIs w/o pseudomonas on cultures - CBC reviewed 05/20: hgb 7.5, plt 92 -plan to transfuse if hgb <7 -thrombocytopenic in setting of cirrhosis -BMP reviewed 05/20: creatine 2.43, BUN 46, electrolytes stable. s/p 1L LR 05/20 due to worsening VINICIUS. -procal 05/18: 0.24 - UA showing turbid appearance, 3+ protein, trace ketones, 3+ blood, positive nitrate, 2+ bilirubin, 1+ LE, RBC, WBC, 1+ bacteria UC negative. BC negative at 24 hour lorie - CTAP revealing moderate volume right and small volume left pleural effusions with underlying atelectasis, small volume ascites, ansa cardia, cirrhosis, urinary bladder wall thickening, Marvin catheter in urinary bladder, renal cyst and renal calculi noted without hydronephrosis - Has had to have dialysis in the past; port in left chest - Continiue Cefepime 1 g every 24 hours -Urology consulted, reviewed 05/20 Dr. Soto provided irrigation with return of roughly 10 cc clot. Nursing to continue hand irrigation if necessary -PT/OT evaluations pending. AM CBC, BMP (2) Confusion: Plan: Onset 05/18, h/o encephalopathy with prior UTI - Lactate 1.4 - Procalcitonin 0.24 - No ammonia at this time - UA confirms infection- suspect this is the likely cause of acute onset confusion - CT head without acute findings - EKG normal sinus with first-degree AV block - Attempt to increase familiarity of setting and promote good sleep to prevent worsening of confusion/decline of mental status (3) Anemia in chronic kidney disease (CKD): Plan: H&H on admission 9.1/29.0; hematuria initially starting 05/15 - Continues to have hematuria in catheter bag - Previously on Coumadin, however no longer taking x weeks - PT 14, INR 1.3 - CBC every morning (4) Chronic kidney disease: Plan: Stage III - Baseline Cr 1.6 - 2.0 - Cr 2.43 increase likely due to dehydration given patient has been intaking very little since his hospitalization due to encephalopathy. - continue to promote oral fluids given current fluid shortage -1 L LR given 05/20. AM BMP (5) CHF (congestive heart failure): Plan: Hypovolemic on exam today; not hypoxic or requiring O2 - I+Os - CXR revealing revealing mild pulmonary vascular congestion, small right greater than left pleural effusions with underlying atelectasis/airspace disease - Troponin 82.7, repeat 76.6 likely demand due to absence of CP, SOB, EKG without ishemic changes. - Most recent echo 02/29/2024-EF 50 to 55%, moderate dilation of RV, LA, RA, mechanical aortic valve in place, trace aortic regurgitation, severe tricuspid regurgitation, diastolic dysfunction grade 3 - Bumex 1 mg 3 times per week at home; hold until BPs improve (6) Diabetes mellitus, type 2: Plan: [id number] - Most recent A1c (02/19/2024) 5.1% - discontinued Novolog - continue to monitor blood glucose. - patient not on PO medications outpatient. Plan Depression with anxiety- continue quetiapine, sertraline, clonazepam; consider holding clonazepam if confusion worsens GERD- lansoprazole BPH- tamsulosin 0.8 mg Hypothyroidism: synthroid Dispo: Admit VTE Prophylaxis: SCDs Code: DNR/DNI Updated daughter via phone 05/20. Admission and Anticipated Discharge Date Admission Date: May 18, 2024 Subjective Patient seen and examined this morning. patient was able to be aroused. his only complaint was that he was tired. dark red blood in marvin bag observed. Physical Exam Constitutional: WD/WN, vitals as above Eyes: PERRL, conjunctivae normal, anicteric sclerae Respiratory: normal respiratory effort, lungs clear to auscultation Cardiovascular: RRR, no murmur, no edema Results & Data Results & Data Vital Signs (Past 12 Hours) Vital Signs Temp Pulse Pulse Pulse Resp BP BP 05/20/24 11:21 36.4 C L 69 18 106/68 05/20/24 07:46 36.5 C 69 17 97/54 L 05/20/24 07:22 05/20/24 07:06 68 05/20/24 03:14 36.7 C 72 18 92/54 L Pulse Ox O2 Del Method 05/20/24 11:21 97 Room Air 05/20/24 07:46 93 Room Air 05/20/24 07:22 Room Air 05/20/24 07:06 11/14/24 03:14 93 Room Air PG Care Time/CCT Total # of Minutes Spent Total Time Spent with Patient: Total time spent is greater than 50% in coordination of care (as documented) at patient's floor/unit and/or counseling patient: Coding Level of Care Code 12041 SUB INP/OBS CARE 3/50MIN Diagnoses Urinary tract infection with hematuria N39.0; R31.9 Confusion R41.0 Anemia in chronic kidney disease (CKD) N18.9; D63.1 Chronic kidney disease N18.9 CHF (congestive heart failure) I50.9 Diabetes mellitus, type 2 E11.9
--- NOTE | 2024-05-20 16:25 | Electrocardiogram Report ---
Test Reason : Blood Pressure : */* mmHG Vent. Rate : 73 BPM Atrial Rate : 73 BPM P-R Int : 244 ms QRS Dur : 96 ms QT Int : 438 ms P-R-T Axes : * -26 95 degrees QTcB Int : 482 ms Sinus rhythm with 1st degree A-V block Possible Old Anterolateral infarct (cited on or before 15-May-2024) Abnormal ECG When compared with ECG of 15-May-2024 14:10, No significant change Confirmed by Flex Castañeda ([id number]) on 05/20/2024 4:25:06 PM Referred By: Confirmed By: Flex Castañeda
[2024-05-20] MEDS: cefTRIAXone SODIUM 1,000 MG MINI-B 50ML IV SCH (16:27)
[2024-05-21 06:20] LABS: Hematocrit (blood only) 24.4 % (42.0-52.0); Hemoglobin 7.4 g/dl (14.0-18.0); Mean Corpuscular Hemoglobin 30.8 pg (25.0-34.0); Mean Corpuscular Hgb Conc 30.3 g/dL (32.0-36.0); Mean Corpuscular Volume 101.7 fL (80.0-100.0); Mean Platelet Volume 11.2 fL (9.4-12.4); Platelet Count 103 K/uL (130-400); RDW Coefficient of Variation 17.5 % (11.5-14.5); RDW Standard Deviation 65.1 fL (36.4-46.3); White Blood Count 3.97 K/ul (4.8-10.8)
[2024-05-21 06:31] LABS: BUN Creatinine Ratio 19.4 (10-20); Calcium 8.1 mg/dl (8.6-10.3); Creatinine Clr Calc Pharmacy 24.6 ml/min; Potassium 4.3 mmol/L (3.5-5.1)
--- NOTE | 2024-05-21 15:19 | Hospitalist Progress Note ---
Date of Service May 21, 2024 Assessment & Plan (1) Urinary tract infection with hematuria: Plan: Marvin catheter in place; h/o UTIs w/o pseudomonas on cultures - CBC reviewed 05/21: hgb 7.4, plt 103 -plan to transfuse if hgb <7 -thrombocytopenic in setting of cirrhosis -BMP reviewed 05/21: creatine 2.47, BUN 48, electrolytes stable. -procal 05/18: 0.24 - UA showing turbid appearance, 3+ protein, trace ketones, 3+ blood, positive nitrate, 2+ bilirubin, 1+ LE, RBC, WBC, 1+ bacteria UC negative. BC negative at 48 hour lorie - CTAP revealing moderate volume right and small volume left pleural effusions with underlying atelectasis, small volume ascites, ansa cardia, cirrhosis, urinary bladder wall thickening, Marvin catheter in urinary bladder, renal cyst and renal calculi noted without hydronephrosis - Has had to have dialysis in the past; port in left chest - Per pharmacy switch from Cefepime to Rocephin. - plan to continue. Last dose 05/28. -Urology consulted, reviewed 05/20 Dr. Soto provided irrigation with return of roughly 10 cc clot. Nursing to continue hand irrigation if necessary -reached out to urology via [employer] 05/21 - continue to monitor, bleeding may be due to the fact patient has hx of radiation. transfuse as necessary. -PT/OT recommending rehab. AM CBC, BMP (2) Confusion: Plan: Onset 05/18, h/o encephalopathy with prior UTI - Lactate 1.4 - Procalcitonin 0.24 - No ammonia at this time - UA confirms infection- suspect this is the likely cause of acute onset confusion - CT head without acute findings - EKG normal sinus with first-degree AV block - Attempt to increase familiarity of setting and promote good sleep to prevent worsening of confusion/decline of mental status (3) Anemia in chronic kidney disease (CKD): Plan: H&H on admission 9.1/29.0; hematuria initially starting 05/15 - Continues to have hematuria in catheter bag - Previously on Coumadin, however no longer taking x weeks - PT 14, INR 1.3 - CBC every morning repeat PT/INR in AM (4) Chronic kidney disease: Plan: Stage III - Baseline Cr 1.6 - 2.0 - Cr 2.47 - continue to promote oral fluids given current fluid shortage -1 L LR given 05/20. AM BMP (5) CHF (congestive heart failure): Plan: Hypovolemic on exam today; not hypoxic or requiring O2 - I+Os - CXR revealing revealing mild pulmonary vascular congestion, small right greater than left pleural effusions with underlying atelectasis/airspace disease - Troponin 82.7, repeat 76.6 likely demand due to absence of CP, SOB, EKG without ishemic changes. - Most recent echo 02/29/2024-EF 50 to 55%, moderate dilation of RV, LA, RA, mechanical aortic valve in place, trace aortic regurgitation, severe tricuspid regurgitation, diastolic dysfunction grade 3 - Bumex 1 mg 3 times per week at home; hold until BPs improve patient still mildly hypotensive. (6) Diabetes mellitus, type 2: Plan: [id number] - Most recent A1c (02/19/2024) 5.1% - discontinued Novolog - continue to monitor blood glucose. - patient not on PO medications outpatient. Plan Depression with anxiety- continue quetiapine, sertraline, clonazepam; consider holding clonazepam if confusion worsens GERD- lansoprazole BPH- tamsulosin 0.8 mg Hypothyroidism: Synthroid Dispo: Admit VTE Prophylaxis: SCDs Code: DNR/DNI Updated daughter via phone 05/20. Admission and Anticipated Discharge Date Admission Date: May 18, 2024 Subjective Patient seen and examined today. Patient still with maroon blood in marvin bag. Patient more alert today but oriented to self. Patient asking for his and neighbor. Physical Exam 2 Constitutional: WD/WN, vitals as above Eyes: PERRL, conjunctivae normal, anicteric sclerae Respiratory: normal respiratory effort, lungs clear to auscultation Cardiovascular: RRR, no murmur, no edema Psychiatric: oriented to self. Results & Data Results & Data Vital Signs (Past 12 Hours) Vital Signs Temp Pulse Resp BP BP Pulse Ox O2 Del Method 05/21/24 11:32 36.6 C 67 18 96/51 L 95 Room Air 05/21/24 08:08 36.8 C 71 18 101/65 95 Room Air 05/21/24 08:00 Room Air Laboratory Results 05/21/24 05:29 05/21/24 05:29 PG Care Time/CCT Total # of Minutes Spent Total Time Spent with Patient: Total time spent is greater than 50% in coordination of care (as documented) at patient's floor/unit and/or counseling patient: Coding Level of Care Code 64918 SUB INP/OBS CARE 2/35MIN Diagnoses Urinary tract infection with hematuria N39.0; R31.9 Confusion R41.0 Anemia in chronic kidney disease (CKD) N18.9; D63.1 Chronic kidney disease N18.9 CHF (congestive heart failure) I50.9 Diabetes mellitus, type 2 E11.9
[2024-05-22 07:29] LABS: Hematocrit (blood only) 23.6 % (42.0-52.0); Hemoglobin 7.4 g/dl (14.0-18.0); Mean Corpuscular Hemoglobin 31.6 pg (25.0-34.0); Mean Corpuscular Hgb Conc 31.4 g/dL (32.0-36.0); Mean Corpuscular Volume 100.9 fL (80.0-100.0); Mean Platelet Volume 10.8 fL (9.4-12.4); Platelet Count 110 K/uL (130-400); RDW Coefficient of Variation 17.9 % (11.5-14.5); Red Blood Count 2.34 M/uL (4.70-6.10); White Blood Count 4.04 K/ul (4.8-10.8)
--- NOTE | 2024-05-22 07:35 | Urology Progress Note ---
Date of Service May 22, 2024 Assessment & Plan (1) Hematuria: (2) Urethral stricture: (3) Penile edema: Plan 79-year-old male with a history of prostate cancer status post radiation who then went into urinary retention. He had a rezum on 12/05/2022 and passed a void trial. He developed a urethral stricture after this and underwent an Optilume balloon dilation on 02/25/2024. He was admitted shortly afterwards for UTI. He did pass a void trial prior before going home. He was admitted 05/19 due to suspected UTI with hematuria. On examination, the catheter did not appear to be in appropriate position so I deflated the balloon and advanced in the bladder. I was then able to irrigate without difficulty. A few small specks of old clot came out but no significant clot burden was removed from the bladder. Balloon was inflated with 10 cc of sterile water and hooked back up to gravity drainage Patient has penile edema and recommend conservative measures including elevation with a towel. Monitor urine output and consistency. Nursing can hand irrigate as needed. Recommend discharge with Duran catheter in place Urology to sign off. A message had previously been sent for outpatient catheter removal and further workup Admission and Anticipated Discharge Date Admission Date: May 18, 2024 Subjective Overnight, patient's catheter apparently clotted off. This was exchanged to a 20 Ecuadorean but nursing reported it still was not draining well. Patient afebrile with stable vitals. Labs stable. Physical Exam Physical Exam: General: Alert and oriented, no acute distress HEENT: Normocephalic, mucous membranes moist Pulmonary: Nonlabored respirations Abdomen: Nondistended : Penile edema, [address] with no drainage. Testicles descended bilaterally. Extremities: Moves all 4 spontaneously Neuro: No gross deficits Skin: Warm, dry, no rashes noted Results & Data Vital Signs (Past 12 Hours) Vital Signs Temp Pulse Pulse Resp BP Pulse Ox O2 Del Method 05/22/24 02:52 36.8 C 73 18 93/53 L 93 Room Air 05/21/24 22:47 37.0 C 81 18 94/57 L 94 Room Air 05/21/24 21:51 77 PG Care Time/CCT Total # of Minutes Spent Total Time Spent with Patient: Total time spent is greater than 50% in coordination of care (as documented) at patient's floor/unit and/or counseling patient: Coding Level of Care Code 55671 SUB INP/OBS CARE 2/35MIN Diagnoses Hematuria R31.0 Hematuria type: gross Urethral stricture N35.919 Penile edema N48.89 (1) Hematuria Hematuria type: gross Qualified Code(s): R31.0 - Gross hematuria
[2024-05-22 07:55] LABS: BUN Creatinine Ratio 18.2 (10-20); Calcium 8.2 mg/dl (8.6-10.3); Creatinine Clr Calc Pharmacy 22.1 ml/min; Potassium 4.2 mmol/L (3.5-5.1)
[2024-05-22 08:06] LABS: INR 1.4 (0.9-1.1); Prothrombin Time 14.9 Seconds (9.0-12.0)
--- NOTE | 2024-05-22 11:56 | Hospitalist Progress Note ---
<Statement entered by Fatuma Dukes MD - 05/22/24 18:48> 79-year-old man with complex underlying medical problems who was in originally admitted with hematuria. He underwent Rezum procedure on December 05 had urethral stricture which was dilated on February 24 discharge with Marvin catheter. urology consulted this admission for hematuria. Hematuria has resolved catheter was repositioned by urologist early this morning and clots were irrigated from the bladder. 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 He also has a mechanical aortic valve but it anticoagulation was discontinued about a month ago when he presented with INR of 10 on warfarin, his INR remains elevated at 1.4 due to his cirrhosis. At this point I agree that risks of anticoagulation likely outweigh the benefits with his anemia and ongoing hematuria. This admission he has had worsening renal function creatinine was 1.74 on admission now 2.75 with low urine output. on exam he is anasarca but lungs are clear. He is oriented to self and his and to "[place]" but not to hospital or why he is here. He has significant rigidity especially of his lower extremities and to some extent his upper extremities. there is no tremor, there is slight asterixis. Worsening VINICIUS on CKD, recently was on hemodialysis was treated for hepatorenal failure about a month ago at another hospital. Subsequent to that he was at [facility] discharged home 3 days prior to admission. He is hypotensive but warm - we will stop his metoprolol, added midodrine as well as albumin 25 g IV every 8 hours, monitor creatinine and urine output, consult nephrology if not improving - he is significantly anemic with hemoglobin of 7.4 following acute blood loss anemia from hematuria. Given his renal failure and cardiomyopathy he will benefit from transfusion I discussed this with his at bedside today and she is consented for him. 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 Uremia may be playing a role. He could have some hospital delirium. In addition he has a significant amount of rigidity which is concerning for extraparametal symptoms. we will stop his Seroquel, stop clonazepam which he has not been taking at home per his and not taking recently at all, he did receive 1 dose of hydroxyzine yesterday which we have discontinued. Date of Service May 22, 2024 Assessment & Plan (1) Urinary tract infection with hematuria: Plan: Marvin catheter in place; h/o UTIs w/o pseudomonas on cultures CBC reviewed 05/22: hgb 7.4, plt 110 * plan to transfuse if hgb <7. Discussed blood transfusion with patient, at that time he states that he would not accept one. However, despite being oriented, I would recommend re-addressing with him when needed since he has been confused this admission/poor historian. If transfusion needed, would include family in the discussion. * thrombocytopenic in setting of cirrhosis * CBC tomorrow BMP reviewed 05/21 * creatine 2.47--> 2.75 * BUN 48--> 50 * electrolytes stable * procal 05/18: 0.24 * BMP tomorrow UA showing turbid appearance, 3+ protein, trace ketones, 3+ blood, positive nitrate, 2+ bilirubin, 1+ LE, RBC, WBC, 1+ bacteria * UC negative. * BC negative at 48 hour lorie CTAP revealing moderate volume right and small volume left pleural effusions with underlying atelectasis, small volume ascites, ansa cardia, cirrhosis, urinary bladder wall thickening, Marvin catheter in urinary bladder, renal cyst and renal calculi noted without hydronephrosis Has had to have dialysis in the past; port in left chest * Per pharmacy switch from Cefepime to Rocephin. - plan to continue. Last dose 05/28. Urology consulted, reviewed 05/20 * Dr. Soto provided irrigation with return of roughly 10 cc clot. This AM, Dr. Soto deflated the balloon and advanced the catheter - at that time he was able to irrigate without difficulty. A few small clots came out but no significant clot burden. Balloon was reinflated and hooked back to gravity. Nursing can continue hand irrigation if necessary. * Recommend elevating penis with a towel d/t edema * Recommend d/c with the marvin in place. * Urology signed off on the patient. Message previously sent for outpt catheter removal and further workup. * Per previous notes: reached out to urology via [facility] 05/21 - continue to monitor, bleeding may be due to the fact patient has hx of radiation. Transfuse as necessary. PT/OT recommending rehab. (2) Confusion: Plan: Onset 05/18, h/o encephalopathy with prior UTI * Lactate 05/18 2.1 w/ repeat of 1.4 * Procalcitonin 05/18 0.24 * Ammonia today 32 * UA shows infection- suspect this is the likely cause of acute onset confusion * CT head without acute findings * EKG normal sinus with first-degree AV block * Attempt to increase familiarity of setting and promote good sleep to prevent worsening of confusion/decline of mental status * Hold Klonopin, Vistaril, Seroquel - may be contributing to confusion (3) Anemia in chronic kidney disease (CKD): Plan: H&H on admission 9.1/29.0; hematuria initially starting 05/15 * Continues to have hematuria in catheter bag, however improved. * Previously on Coumadin, however no longer taking x weeks * PT 14.9, INR 1.4 * CBC QAM (4) Chronic kidney disease: Plan: Stage III * Baseline Cr 1.6 - 2.0 * Cr 2.75 * Continue to promote oral fluids given current fluid shortage * 1 L LR given 05/20. * Albumin 25% 25 G Q8 hours * Midodrine 5mg TID * AM BMP (5) CHF (congestive heart failure): Plan: Hypovolemic on exam today; not hypoxic or requiring O2 * I+Os * CXR revealing revealing mild pulmonary vascular congestion, small right greater than left pleural effusions with underlying atelectasis/airspace disease * Troponin 82.7, repeat 76.6 - likely demand due to absence of CP, SOB, EKG without ischemic changes. * Most recent echo 02/29/2024-EF 50 to 55%, moderate dilation of RV, LA, RA, mechanical aortic valve in place, trace aortic regurgitation, severe tricuspid regurgitation, diastolic dysfunction grade 3 * Bumex 1 mg 3 times per week at home; hold until BPs improve * He is still mildly hypotensive - hold Metoprolol and start Midodrine 5mg TID or hypotension (6) Diabetes mellitus, type 2: Plan: [id number] * Most recent A1c (02/19/2024) 5.1% * discontinued Novolog * continue to monitor blood glucose. * patient not on PO medications outpatient. Plan Depression with anxiety- medications on hold due to confusion at this time. Could consider restarting if confusion resolves, but potentially lower doses. GERD- lansoprazole BPH- tamsulosin 0.8 mg Hypothyroidism - Synthroid Dispo: Admit VTE Prophylaxis: SCDs Code: DNR/DNI Admission and Anticipated Discharge Date Admission Date: May 18, 2024 Sal[place] Milian is a 79 yo man who presented to the ED with hematuria, weakness, and confusion. He has a hx of CKD with anemia, chronic marvin catheter, hypothyroidism, cirrhosis, CHF, DM2, GERD and prostatic malignancy. had reported a decline in mental status and weakness. He has a hx of UTIs w/o pseudomonas on cultures. UA showed turbid appearance, 3+ protein, trace ketones, positive nitrates, 2+ bilirubin, 1+ LE, RBC, WBC, 1+ bacteria. His home cefdinir was stopped and he was started on Cefepime 1G q24 hours. Pharmacy switched Cefepime to Rocephin. CTAP revealing moderate volume right and small volume left pleural effusions with underlying atelectasis, small volume ascites, ansa cardia, cirrhosis, urinary bladder wall thickening, Marvin catheter in urinary bladder, renal cyst and renal calculi noted without hydronephrosis. Urine culture showed no growth. Urology was consulted and provided irrigation with return of clots. Nursing to continue irrigation if needed. Maicol was seen and examined today. He is sitting up in bed, answers questions but fall asleep easily. He is oriented to place, time and self. He has no complaints of chest pain, SOB, fevers/chills, abdominal pain, n/v/d. I did discuss with him the potential for future blood transfusions. He states that he has had them in the past, but does not think he would get one now. When asked if he did not tolerate in the past, he did not respond. He could not provide a reason why he would not consider a blood transfusion this admission. Review of Systems Constitutional: no fever, no chills and no sweats Respiratory: no cough, no chest congestion and no dyspnea Cardiovascular: no chest pain and no edema Gastrointestinal: no abdominal pain, no nausea and no vomiting Physical Exam Constitutional: + ill appearing Eyes: PERRL, conjunctivae normal, anicteric sclerae Neck: trachea midline Respiratory: no respiratory distress Auscultation: lungs clear to auscultation bilaterally Cardiovascular: Rate/Rhythm: regular rate and regular rhythm Extremities: no edema Gastrointestinal (Abdomen): Inspection/Auscultation: normal bowel sounds Percussion/Palpation: abdomen soft; abdomen nontender Psychiatric: Orientation: oriented x 3 Genitourinary: + penile swelling Results & Data Results & Data Vital Signs (Past 12 Hours) Vital Signs Temp Pulse Resp BP BP Pulse Ox O2 Del Method 05/22/24 11:46 36.5 C 69 16 103/58 L 95 Room Air 05/22/24 07:56 36.6 C 73 18 103/58 L 96 Room Air 05/22/24 02:52 36.8 C 73 18 93/53 L 93 Room Air Laboratory Results 05/22/24 05/22/24 Range/Units 11:52 06:59 WBC 4.04 L (4.8-10.8) K/ul RBC 2.34 L (4.70-6.10) M/uL Hgb 7.4 L (14.0-18.0) g/dl Hct 23.6 L (42.0-52.0) % MCV 100.9 H (80.0-100.0) fL MCH 31.6 (25.0-34.0) pg MCHC 31.4 L (32.0-36.0) g/dL RDW Std Deviation 66.0 H (36.4-46.3) fL RDW Coeff of Nick 17.9 H (11.5-14.5) % Plt Count 110 L (130-400) K/uL MPV 10.8 (9.4-12.4) fL PT 14.9 H (9.0-12.0) Seconds INR 1.4 H (0.9-1.1) Sodium 141 (136-145) mmol/L Potassium 4.2 (3.5-5.1) mmol/L Chloride 113 H (98-107) mmol/L Carbon Dioxide 20 L (21-32) mmol/L Anion Gap 8 (3-11) BUN 50 H (6-23) mg/dl Creatinine 2.75 H (0.6-1.4) mg/dl Est Cr Clr Drug Dosing 22.1 ml/min eGFR 22.88 BUN/Creatinine Ratio 18.2 (10-20) Glucose 80 (70-99(Fasting)) mg/dl Calcium 8.2 L (8.6-10.3) mg/dl Ammonia 32.0 (18-72) umol/L PG Care Time/CCT Total # of Minutes Spent Total Time Spent with Patient: Total time spent is greater than 50% in coordination of care (as documented) at patient's floor/unit and/or counseling patient: [place] [address] SUB INP/OBS CARE 2/35MIN Patient Type Established History Expanded Problem Focused Exam Expanded Problem Focused Medical Decision Making Moderate Complexity Diagnoses Urinary tract infection with hematuria N39.0; R31.9 Confusion R41.0 Anemia in chronic kidney disease (CKD) N18.9; D63.1 Chronic kidney disease N18.9 CHF (congestive heart failure) I50.9 Diabetes mellitus, type 2 E11.9
[2024-05-22] MEDS: MIDODRINE HCL 2.5 MG TAB PO SCH (12:02)
[2024-05-22] MEDS: ALBUMIN 25% 25 GM/100 ML VIAL IV SCH (12:02)
[2024-05-23] MEDS: MELATONIN 3 MG TAB PO PRN (00:14)
[2024-05-23 06:21] LABS: Hematocrit (blood only) 23.4 % (42.0-52.0); Hemoglobin 7.2 g/dl (14.0-18.0); Mean Corpuscular Hemoglobin 31.9 pg (25.0-34.0); Mean Corpuscular Hgb Conc 30.8 g/dL (32.0-36.0); Mean Corpuscular Volume 103.5 fL (80.0-100.0); Mean Platelet Volume 10.7 fL (9.4-12.4); Platelet Count 101 K/uL (130-400); RDW Standard Deviation 67.7 fL (36.4-46.3); Red Blood Count 2.26 M/uL (4.70-6.10); White Blood Count 3.89 K/ul (4.8-10.8)
[2024-05-23 06:51] LABS: BUN Creatinine Ratio 17.9 (10-20); Calcium 8.5 mg/dl (8.6-10.3); Creatinine Clr Calc Pharmacy 20.2 ml/min; Potassium 4.5 mmol/L (3.5-5.1)
[2024-05-23] MEDS ORDERED: SODIUM CHLORIDE 0.9% 100 ML IV PRN (08:02)
[2024-05-23] MEDS ORDERED: SODIUM CHLORIDE 0.9% 50 ML IV PRN (08:02)
--- NOTE | 2024-05-23 09:03 | Nephrology Consultation ---
Date of Consultation May 23, 2024 Assessment & Plan (1) Acute kidney injury: * Oliguric VINICIUS likely related to anemia and relative hypotension.Urine sediment is difficult to assess due to Duran catheter placement and gross hematuria. Renal ultrasound was negative for hydronephrosis. Patient has not received IV contrast or been exposed to any known nephrotoxic agents. * Agree with blood transfusion to improve intravascular volume * Monitor BMP, UO (2) Chronic kidney disease: * Baseline creatinine 2.0 (3) Cirrhosis: * Albumin 2.6 * Agree with albumin 25 g IV every 8 hours and midodrine 10 mg 3 times daily * Monitor UO, volume status closely * 05/18/[address] without IV contrast revealed moderate right and small volume left pleural effusions. Only a small volume of ascites/anasarca. No hydronephrosis. (4) Anemia: * Transfusion to maintain Hgb > 8.0 (5) Chronic anticoagulation: (6) Hx of aortic valve replacement, mechanical: (7) Delirium: History of Present Illness Reason for Consultation: VINICIUS/CKD Attending Physician: Fatuma Dukes MD History of Present Illness Mr. Jarquin is a 79-year-old white male who is seen at the request of the [facility] hospitalist service for evaluation of VINICIUS/CKD. Information for the HPI is obtained from review of the EMR. The patient is unable to provide any details of his medical history. HPI summarized as follows: Mr. Jarquin has CKD with baseline creatinine 2.0 dating back to at least 08/30 in the EMR. The patient resides in [place], [place]. His medical history is significant for cirrhosis, AODM, HFpEF, mechanical AVR, dementia and prostate cancer. He was hospitalized recently at [facility] for hepatorenal syndrome. He did require initiation of HD. This was stopped ~ 1 month ago. He still has a R IJ TCC in place. In regard to his BPH/prostate cancer, Mr. Jarquin underwent rezum procedure and later balloon dilation. He presented to the [facility] EMD 05/18/2024 for evaluation of gross hematuria, mental status changes, INR 13 and creatinine 2.0. Since admission his hemoglobin has dropped to 7.2 and creatinine has risen to 3.0. Renal ultrasound was checked and found to be negative for hydronephrosis. Patient's mental status changes were felt to be related to Seroquel. Allergies Allergy/AdvReac Type Severity Reaction Status Date / Time plasma protein fraction Allergy Severe FROZEN Verified 05/18/24 19:42 PLASMA-- DEVELOPED HIVES Home Medications Medication Instructions Recorded Confirmed Type cholecalciferol (vitamin D3) 50 50 mcg PO QPM 10/07/22 05/18/24 History mcg (2,000 unit) capsule clonazepam 0.5 mg tablet 0.5 mg PO DAILY PRN Anxiety 10/07/22 05/18/24 History hydrocortisone acetate 1 % topical 1 applic topical BID PRN Skin 10/07/22 05/18/24 History cream Irritation sertraline 100 mg tablet 100 mg PO HS 11/25/22 05/18/24 History tamsulosin 0.4 mg capsule 0.8 mg PO QPM 11/25/22 05/18/24 History cyanocobalamin (vitamin B-12) 1,000 mcg PO DAILY 08/31/23 05/18/24 History 1,000 mcg tablet (Vitamin B-12) levothyroxine 75 mcg tablet 75 mcg PO QAM 08/31/23 05/18/24 History (Synthroid) lactulose 10 gram/15 mL oral syrup 30 g PO BID 01/22/24 05/18/24 History ondansetron 4 mg disintegrating 4 mg PO Q6H PRN Nausea And Vomiting 02/28/24 05/18/24 History tablet bumetanide 1 mg tablet 1 mg PO .3X WEEK 05/15/24 05/18/24 History cefdinir 300 mg capsule 300 mg PO BID #14 caps 05/15/24 05/18/24 Rx hydroxyzine HCl 10 mg tablet 10 mg PO BID PRN Itching 05/15/24 05/18/24 History lansoprazole 30 mg capsule,delayed 30 mg PO BID 05/15/24 05/18/24 History release quetiapine 25 mg tablet 25 mg PO QAM 05/15/24 05/18/24 History quetiapine 50 mg tablet 50 mg PO HS 05/15/24 05/18/24 History metoprolol tartrate 25 mg tablet 25 mg PO BID 05/18/24 05/18/24 History rifaximin 550 mg tablet (Xifaxan) 550 mg PO BID 05/18/24 05/18/24 History Patient History Medical History Non-ST elevated myocardial infarction (non-STEMI) Acute kidney injury superimposed on CKD Gross hematuria Chronic kidney disease Hypothyroidism Hx of aortic aneurysm ascending aortic aneurysm s/p dissection 05/2019 and subsequent repair of aortic root (28mm Gelweave graft) Failure to thrive in adult admission [facility] 08/31/23-09/12/23. pt's states that he has improved slightly since d/c (he has also since had an admission to [facility] since that time per ; unknown dx) Thrombocytopenia Prostate CA XRT 2020; Rezum 12/05/22 Dementia pt had significant confusion during 09/2023 admission [facility]; states that he is 'much better' at home. she also notes increased confusion after General Anesthesia GERD (gastroesophageal reflux disease) Portal hypertension Diabetes type 2, controlled metformin d/c during [facility] admission 2/2 hypoglycemia (pt has been having GI issues and has not been eating normal diet) Cirrhosis follows with GI Anemia pt's reports ongoing rectal bleeding (GI is aware) since XRT for prostate Ca; pt takes iron supplement; recent iron infusions and procrit injections (02/12/24 and will have another on 02/19/24) Generalized weakness uses cane to ambulate Urinary tract infection recurrent; follows with urology Nausea & vomiting current sx; following with GI CHF (congestive heart failure) follows with [facility] Osteoarthritis Anxiety Hypertension meds reduced during 09/2023 [facility] admission 2/2 hypotension Suspected sleep apnea unaware History of COVID-19 x2 ; 10/2022 most recent (pt was asymptomatic); no ongoing sx History of fractured vertebra Cervical fracture 11/18/21- medical management recommended, follows with physical therapy, "full ROM" per patient Surgical History History of endoscopy capsule endoscopy History of flexible sigmoidoscopy History of colonoscopy History of cholecystectomy History of appendectomy History of prostate surgery multiple; most recent Rezum 12/05/22: MAC without issue History of aortic aneurysm repair 05/2021 in [facility] Follow[facility] with 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 Required: No Beliefs That Will Affect Care: None marital status: Current Living Situation: Spouse current occupational status: retired Other Information That Helps Us Care for You: No Feels Safe at Home: Yes Safety Concerns: Feels Safe At This Time Assistive Devices: Walker and Wheelchair Review of Systems Review of Systems: Unobtainable due to cognitive status Physical Exam Constitutional: not in distress Eyes: PERRL, conjunctivae normal, anicteric sclerae ENMT: external ear and nose normal, oropharynx normal Neck: trachea midline, no thyromegaly Respiratory: normal respiratory effort, lungs clear to auscultation Cardiovascular: RRR, no murmur, no edema Gastrointestinal (Abdomen): normal bowel sounds, soft, nontender, no hepatosplenomegaly Musculoskeletal: Extremities: no cyanosis and no clubbing Skin: no rashes, warm and dry Neurologic: awake; not confused Results & Data Vital Signs (Past 12 Hours) Vital Signs Temp Pulse Pulse Resp BP BP Pulse Ox 05/23/24 07:56 36.4 C L 65 16 95/50 L 84/43 L 94 05/23/24 05:54 36.5 C 76 16 101/62 93 05/22/24 22:50 36.7 C 75 18 93/58 L 94 05/22/24 22:13 77 O2 Del Method 05/23/24 07:56 Room Air 05/23/24 05:54 Room Air 05/22/24 22:50 Room Air 05/22/24 22:13 Laboratory Results Laboratory Results WBC 3.89 K/ul (4.8-10.8) L 05/23/24 05:32 RBC 2.26 M/uL (4.70-6.10) L 05/23/24 05:32 Hgb 7.2 g/dl (14.0-18.0) L 05/23/24 05:32 Hct 23.4 % (42.0-52.0) L 05/23/24 05:32 MCV 103.5 fL (80.0-100.0) H 05/23/24 05:32 MCH 31.9 pg (25.0-34.0) 05/23/24 05:32 MCHC 30.8 g/dL (32.0-36.0) L 05/23/24 05:32 RDW Std Deviation 67.7 fL (36.4-46.3) H 05/23/24 05:32 RDW Coeff of Nick 18.0 % (11.5-14.5) H 05/23/24 05:32 Plt Count 101 K/uL (130-400) L 05/23/24 05:32 MPV 10.7 fL (9.4-12.4) 05/23/24 05:32 Immature Gran % (Auto) 0.5 % 05/20/24 07:21 Neut % (Auto) 75.8 % 05/20/24 07:21 Lymph % (Auto) 10.8 % 05/20/24 07:21 Dale % (Auto) 9.8 % 05/20/24 07:21 Eos % (Auto) 2.6 % 05/20/24 07:21 Baso % (Auto) 0.5 % 05/20/24 07:21 Neut # (Auto) 2.86 K/uL (1.40-6.50) 05/20/24 07:21 Lymph # (Auto) 0.41 K/uL (1.20-3.40) L 05/20/24 07:21 Dale # (Auto) 0.37 K/uL (0.11-0.59) 05/20/24 07:21 Eos # (Auto) 0.10 K/uL (0.00-0.50) 05/20/24 07:21 Baso # (Auto) 0.02 K/uL (0.00-0.20) 05/20/24 07:21 Immature Gran # (Auto) 0.02 K/uL (0.01-0.20) 05/20/24 07:21 Platelet Estimate Decreased (Normal) L 05/20/24 07:21 RBC Morphology Unremarkable 05/20/24 07:21 PT 14.9 Seconds (9.0-12.0) H 05/22/24 06:59 INR 1.4 (0.9-1.1) H 05/22/24 06:59 APTT 28 Seconds (21-31) 05/18/24 16:24 PTT Ratio 1.0 05/18/24 16:24 Sodium 142 mmol/L (136-145) 05/23/24 05:32 Potassium 4.5 mmol/L (3.5-5.1) 05/23/24 05:32 Chloride 112 mmol/L (98-107) H 05/23/24 05:32 Carbon Dioxide 20 mmol/L (21-32) L 05/23/24 05:32 Anion Gap 10 (3-11) 05/23/24 05:32 BUN 54 mg/dl (6-23) H 05/23/24 05:32 Creatinine 3.02 mg/dl (0.6-1.4) H 05/23/24 05:32 Est Cr Clr Drug Dosing 20.2 ml/min 05/23/24 05:32 eGFR 20.45 05/23/24 05:32 BUN/Creatinine Ratio 17.9 (10-20) 05/23/24 05:32 Glucose 81 mg/dl (70-99(Fasting)) 05/23/24 05:32 POC Glucose 87 mg/dl (70-99) 05/21/24 07:57 Lactate 1.4 mmol/L (0.4-2.0) 05/18/24 18:21 Calcium 8.5 mg/dl (8.6-10.3) L 05/23/24 05:32 Magnesium 1.7 mg/dl (1.7-2.4) 05/18/24 16:24 Total Bilirubin 0.9 mg/dl (0.2-1.0) 05/20/24 07:21 Direct Bilirubin TNP 05/18/24 16:24 AST 59 U/L (13-39) H 05/20/24 07:21 ALT 25 U/L (7-52) 05/20/24 07:21 Alkaline Phosphatase 118 U/L (34-104) H 05/20/24 07:21 Ammonia 32.0 umol/L (18-72) 05/22/24 11:52 Troponin I High Sens 76.6 pg/ml (0-20) H* 05/18/24 18:21 Total Protein 5.2 gm/dl (6.0-8.3) L 05/20/24 07:21 Albumin 2.6 gm/dl (3.4-5.0) L 05/20/24 07:21 Globulin 2.6 gm/dl (2.5-4.0) 05/20/24 07:21 Albumin/Globulin Ratio 1.0 (0.9-2) 05/20/24 07:21 Procalcitonin 0.24 ng/ml (0-0.5) 05/18/24 16:24 Urine Color Red 05/18/24 16:30 Urine Appearance Turbid (Clear) A 05/18/24 16:30 Urine pH 6.0 (4.5-7.5) 05/18/24 16:30 Ur Specific [place] 1.025 (1.000-1.030) 05/18/24 16:30 Urine Protein 3+ (Negative) H 05/18/24 16:30 Urine Glucose (UA) Negative (Negative) 05/18/24 16:30 Urine Ketones Trace (Negative) H 05/18/24 16:30 Urine Blood 3+ (Negative) H 05/18/24 16:30 Urine Nitrite Positive (Negative) A 05/18/24 16:30 Urine Bilirubin 2+ (Negative) H 05/18/24 16:30 Urine Urobilinogen Negative (Negative) 05/18/24 16:30 Ur Leukocyte Esterase 1+ (Negative) H 05/18/24 16:30 Urine RBC >20 /hpf (0-2) H 05/18/24 16:30 Urine WBC 6-10 /hpf (0-5) H 05/18/24 16:30 Ur Epithelial Cells 0-2 /hpf (0-2) 05/18/24 16:30 Urine Bacteria 1+ (None Seen) H 05/18/24 16:30 Blood Type O Negative 05/18/24 16:29 Antibody Screen NEGATIVE 05/18/24 16:29 Crossmatch See Detail 05/23/24 08:15 Impressions Chest X-Ray 05/18/24 16:07 INDICATION: Chest pain. TECHNIQUE: Frontal radiograph of the chest. COMPARISON: Radiograph from 02/28/2024. FINDINGS: Cardiomegaly. Right-sided dialysis catheter tip in the right atrium. Mild pulmonary vascular congestion. Small right greater than left pleural effusions with underlying atelectasis/airspace disease. No pneumothorax. No acute fracture. IMPRESSION: Mild pulmonary vascular congestion. Small right greater than left pleural effusions with underlying atelectasis/airspace disease. Electronically signed by Jacobo Cano 05-18-2024 4:39 PM Abdomen/Pelvis CT 05/18/24 16:14 INDICATION: Decreased urine output. Altered mental status COMPARISON: CT from 08/08/2023. TECHNIQUE: Axial CT images of the abdomen and pelvis were obtained without IV contrast administration. Coronal and sagittal reformations were reviewed. FINDINGS: Moderate volume right and small volume left pleural effusions with underlying atelectasis. Cardiomegaly. Heterogeneous/nodular appearance of the liver likely related to or cirrhosis. The gallbladder is surgically absent. Splenomegaly. The pancreas and adrenal glands appear unremarkable. Bilateral renal cysts, exophytic) with calcifications appear similar. Nonobstructing small left renal calculi. No hydronephrosis. No evidence of bowel obstruction/colitis/appendicitis. No free air. No drainable fluid collection. Anasarca. Atheromatous plaquing of the abdominal aorta without evidence of aneurysm. Urinary bladder wall thickening. Duran catheter in the urinary bladder. Bilateral inguinal hernias containing fat and small amount of ascites on the left. Degenerative changes in the spine. No acute osseous abnormality evident. IMPRESSION: 1. Moderate volume right and small volume left pleural effusions with underlying atelectasis. 2. Small volume ascites. Anasarca. 3. Cirrhosis. 4. Urinary bladder wall thickening. Flow catheter in the urinary bladder. 5. Renal cysts and renal calculi again noted. No hydronephrosis. Electronically signed by Jacobo Cano 05-18-2024 5:[address] 05/18/24 16:14 INDICATION: Altered mental status. COMPARISON: CT from 08/31/2023 TECHNIQUE: Axial CT images of the head were obtained without IV contrast. Coronal and sagittal reformations were reviewed. FINDINGS: Soria-white differentiation is relatively preserved. No mass, mass effect or midline shift. Chronic ischemic white matter changes. Basal ganglia calcifications. No evidence of acute large territorial infarction or acute intracranial hemorrhage. Ventricles appear normal in size. Basal cisterns are patent. No depressed calvarial fracture. IMPRESSION: No acute intracranial process. Electronically signed by Jacobo Cano 05-18-2024 5:11 PM 05/18/24 Blood and urine cultures - NGTD PG Care Time/CCT Total # of Minutes Spent Total Time Spent with Patient: Total time spent is greater than 50% in coordination of care (as documented) at patient's floor/unit and/or counseling patient: Coding Level of Care Code 22850 IN/OBS CONSULT LVL 5,80M Diagnoses Acute kidney injury N17.9 Chronic kidney disease N18.9 Cirrhosis K74.60 Anemia D64.9 Anemia type: unspecified type Chronic anticoagulation Z79.01 Hx of aortic valve replacement, mechanical Z95.2 Delirium R41.0 (4) Anemia Anemia type: unspecified type Qualified Code(s): D64.9 - Anemia, unspecified
--- NOTE | 2024-05-23 09:23 | Hospitalist Progress Note ---
Date of Service May 23, 2024 Assessment & Plan (1) Urinary tract infection with hematuria: Plan: Marvin catheter in place; h/o UTIs w/o pseudomonas on cultures CBC reviewed 05/23: hgb 7.47.2, plt 101 * plan to transfuse today. Discussed blood transfusion with patient, he is agreeable today. His signed consent with Dr. Dukes yesterday. * thrombocytopenic in setting of cirrhosis * CBC tomorrow BMP reviewed 05/23 * creatine 2.47--> 2.75 -- 3.02 * BUN 48--> 50 * electrolytes stable * procal 05/18: 0.24 * BMP tomorrow * Nephrology consulted - agrees with albumin Q8 hours and midodrine 10mg TID, blood transfusion to maintain Hgb > than 8.0 UA showing turbid appearance, 3+ protein, trace ketones, 3+ blood, positive nitrate, 2+ bilirubin, 1+ LE, RBC, WBC, 1+ bacteria * UC negative. * BC negative at 48 hour lorie CTAP revealing moderate volume right and small volume left pleural effusions with underlying atelectasis, small volume ascites, ansa cardia, cirrhosis, urinary bladder wall thickening, Marvin catheter in urinary bladder, renal cyst and renal calculi noted without hydronephrosis Has had to have dialysis in the past; port in left chest * Per pharmacy switch from Cefepime to Rocephin. - plan to continue. Last dose 05/28. Urology consulted, reviewed 05/20 * Dr. Soto provided irrigation with return of roughly 10 cc clot. This AM, Dr. Soto deflated the balloon and advanced the catheter - at that time he was able to irrigate without difficulty. A few small clots came out but no significant clot burden. Balloon was reinflated and hooked back to gravity. Nursing can continue hand irrigation if necessary. * Recommend elevating penis with a towel d/t edema * Recommend d/c with the marvin in place. * Urology signed off on the patient. Message previously sent for outpt catheter removal and further workup. * Per previous notes: reached out to urology via [facility] 05/21 - continue to monitor, bleeding may be due to the fact patient has hx of radiation. Transfuse as necessary. PT/OT recommending rehab. (2) Confusion: Plan: Onset 05/18, h/o encephalopathy with prior UTI * Lactate 05/18 2.1 w/ repeat of 1.4 * Procalcitonin 05/18 0.24 * Ammonia yesterday 32 * UA shows infection- suspect this is the likely cause of acute onset confusion * CT head without acute findings * EKG normal sinus with first-degree AV block * Attempt to increase familiarity of setting and promote good sleep to prevent worsening of confusion/decline of mental status * Hold Klonopin, Vistaril, Seroquel - may be contributing to confusion * Seems more awake/alert today, but not oriented to place or time. (3) Anemia in chronic kidney disease (CKD): Plan: H&H on admission 9.1/29.0; hematuria initially starting 05/15 * Urine is now dark yellow, no clots. * Previously on Coumadin, however no longer taking x weeks * PT 14.9, INR 1.4 * CBC QAM (4) Chronic kidney disease: Plan: Stage III * Baseline Cr 1.6 - 2.0 * Cr 3.02 * Continue to promote oral fluids given current fluid shortage * 1 L LR given 05/20. * Albumin 25% 25 G Q8 hours * Midodrine increased to 10mg TID. * AM BMP (5) CHF (congestive heart failure): Plan: Hypovolemic on exam today; not hypoxic or requiring O2 * I+Os * CXR revealing revealing mild pulmonary vascular congestion, small right greater than left pleural effusions with underlying atelectasis/airspace disease * Troponin 82.7, repeat 76.6 - likely demand due to absence of CP, SOB, EKG without ischemic changes. * Most recent echo 02/29/2024-EF 50 to 55%, moderate dilation of RV, LA, RA, mechanical aortic valve in place, trace aortic regurgitation, severe tricuspid regurgitation, diastolic dysfunction grade 3 * Bumex 1 mg 3 times per week at home; hold until BPs improve * He is still mildly hypotensive - Metoprolol on hold starting 05/22. Midodrine increased to 10mg TID. (6) Diabetes mellitus, type 2: Plan: Pei-twepoew-cybnaglen * Most recent A1c (02/19/2024) 5.1% * discontinued Novolog * continue to monitor blood glucose. * patient not on PO medications outpatient. Plan Depression with anxiety- medications on hold due to confusion at this time. Could consider restarting if confusion resolves, but potentially lower doses. GERD- lansoprazole BPH- tamsulosin 0.8 mg Hypothyroidism - Synthroid Dispo: Admit VTE Prophylaxis: SCDs Code: DNR/DNI Admission and Anticipated Discharge Date Admission Date: May 18, 2024 [place] Milian is a 79 yo man who presented to the ED with hematuria, weakness, and confusion. He has a hx of CKD with anemia, chronic marvin catheter, hypothyroidism, cirrhosis, CHF, DM2, GERD and prostatic malignancy. had reported a decline in mental status and weakness. He has a hx of UTIs w/o pseudomonas on cultures. UA showed turbid appearance, 3+ protein, trace ketones, positive nitrates, 2+ bilirubin, 1+ LE, RBC, WBC, 1+ bacteria. His home cefdinir was stopped and he was started on Cefepime 1G q24 hours. Pharmacy switched Cefepime to Rocephin. CTAP revealing moderate volume right and small volume left pleural effusions with underlying atelectasis, small volume ascites, ansa cardia, cirrhosis, urinary bladder wall thickening, Marvin catheter in urinary bladder, renal cyst and renal calculi noted without hydronephrosis. Urine culture showed no growth. Urology was consulted and provided irrigation with return of clots. Nursing to continue irrigation if needed. Maicol was seen and examined today. He is sitting up in bed, he seems more alert today, but is not oriented to place or time. Oriented to self. He follows commands. He has no complaints of chest pain, SOB, fevers/chills, abdominal pain, n/v/d. I did discuss with him the potential for future blood transfusions. He states that he has had them in the past. He is agreeable to getting transfused today, and his signed consent yesterday. He reports that he is drinking well. He is unsure if he has had a bowel movement. Review of Systems Constitutional: no fever, no chills and no sweats Respiratory: no cough, no chest congestion and no dyspnea Cardiovascular: no chest pain and no edema Gastrointestinal: no abdominal pain, no nausea and no vomiting Physical Exam Constitutional: + ill appearing Eyes: PERRL, conjunctivae normal, anicteric sclerae Neck: trachea midline Respiratory: no respiratory distress Auscultation: lungs clear to auscultation bilaterally Cardiovascular: Rate/Rhythm: regular rate and regular rhythm Extremities: no edema Gastrointestinal (Abdomen): Inspection/Auscultation: normal bowel sounds Percussion/Palpation: abdomen soft; abdomen nontender Skin: + pallor Psychiatric: Orientation: oriented x 3 Results & Data Results & Data Vital Signs (Past 12 Hours) Vital Signs Temp Pulse Pulse Resp BP BP Pulse Ox 05/23/24 07:56 36.4 C L 65 16 95/50 L 84/43 L 94 05/23/24 05:54 36.5 C 76 16 101/62 93 05/22/24 22:50 36.7 C 75 18 93/58 L 94 05/22/24 22:13 77 O2 Del Method 05/23/24 07:56 Room Air 05/23/24 05:54 Room Air 05/22/24 22:50 Room Air 05/22/24 22:13 PG Care Time/CCT Total # of Minutes Spent Total Time Spent with Patient: Total time spent is greater than 50% in coordination of care (as documented) at patient's floor/unit and/or counseling patient: Coding [place] [address] SUB INP/OBS CARE 2/35MIN Patient Type Established History Expanded Problem Focused Exam Expanded Problem Focused Medical Decision Making Moderate Complexity Diagnoses Urinary tract infection with hematuria N39.0; R31.9 Confusion R41.0 Anemia in chronic kidney disease (CKD) N18.9; D63.1 Chronic kidney disease N18.9 CHF (congestive heart failure) I50.9 Diabetes mellitus, type 2 E11.9
[2024-05-23 09:53] LABS: Thyroid Stimulating Hormone 5.513 uIu/ml (0.300-4.500)
[2024-05-23] MEDS: FUROSEMIDE 40 MG/4 ML VIAL IV SCH (10:25)
[2024-05-23] MEDS: MIDODRINE HCL 10 MG TAB PO SCH (12:33)
[2024-05-23 13:09] LABS: Appearance Urine Turbid (Clear); Bacteria Urine Automated 4+ (None Seen); Bilirubin Urine Negative (Negative); Blood Urine 3+ (Negative); Cast Urine Automated >20 /lpf (0-2); Color Urine Yellow; Glucose Urine UA Negative (Negative); Hyaline Casts Urine Present /lpf (None Presnt); Ketones Urine Negative (Negative); Leukocyte Esterase Urine 3+ (Negative); Nitrite Urine Negative (Negative); Protein Urine 3+ (Negative); Specific Gravity Urine 1.012 (1.000-1.030); Urobilinogen Urine Negative (Negative); WBC Urine Automated >50 /hpf (0-5)
[2024-05-23 13:43] LABS: Creatinine Urine Random 69.4 mg/dl
[2024-05-24 08:24] LABS: Hemoglobin 8.1 g/dl (14.0-18.0); Mean Corpuscular Hgb Conc 31.2 g/dL (32.0-36.0); Mean Corpuscular Volume 99.6 fL (80.0-100.0); Mean Platelet Volume 10.8 fL (9.4-12.4); Platelet Count 108 K/uL (130-400); RDW Coefficient of Variation 20.2 % (11.5-14.5); RDW Standard Deviation 74.4 fL (36.4-46.3); Red Blood Count 2.61 M/uL (4.70-6.10); White Blood Count 3.96 K/ul (4.8-10.8)
[2024-05-24 08:33] LABS: Albumin Globulin Ratio 1.3 (0.9-2); Albumin Level 3.4 gm/dl (3.4-5.0); BUN Creatinine Ratio 17.2 (10-20); Bilirubin,Total 1.1 mg/dl (0.2-1.0); Calcium 8.7 mg/dl (8.6-10.3); Creatinine Clr Calc Pharmacy 20.3 ml/min; Globulin 2.7 gm/dl (2.5-4.0); Potassium 4.4 mmol/L (3.5-5.1); Total Protein 6.1 gm/dl (6.0-8.3)
--- NOTE | 2024-05-24 08:59 | Nephrology Progress Note ---
Date of Service May 24, 2024 Assessment & Plan (1) Acute kidney injury: Plan: * Oliguric VINICIUS likely related to anemia and relative hypotension. Urine sediment is difficult to assess due to Duran catheter placement and gross hematuria. Renal US was negative for hydronephrosis. Patient has not received IV contrast or been exposed to any known nephrotoxic agents. Clinically doubt HRS as Carie > 10 * Patient was transfused 1 unit PRBC 05/23/24. He remains on IV albumin TID * He remains oliguric but rate of decline in kidney function appears to be slowing * Recommend stopping IV albumin since serum albumin is now > 3.4 * No acute indication for HD. Continue to monitor BMP, UO (2) Chronic kidney disease: Plan: * Baseline creatinine 2.0 (3) Cirrhosis: Plan: * Albumin 3.4 * Recommend stopping albumin, continue midodrine * Monitor UO, volume status closely * 05/18/[address] without IV contrast revealed moderate right and small volume left pleural effusions. Only a small volume of ascites/anasarca. No hydronephrosis. (4) Anemia: Plan: * Transfusion to maintain Hgb > 8.0 (5) Chronic anticoagulation: (6) Hx of aortic valve replacement, mechanical: (7) Delirium: Admission and Anticipated Discharge Date Admission Date: May 18, 2024 Subjective Mr. Jarquin was evaluated in his hospital room this morning. He is COMANCHE but voiced no medical concerns Review of Systems Review of Systems: Unobtainable due to cognitive status Physical Exam Constitutional: not in distress Eyes: PERRL, conjunctivae normal, anicteric sclerae ENMT: external ear and nose normal, oropharynx normal Neck: trachea midline, no thyromegaly Respiratory: normal respiratory effort, lungs clear to auscultation Cardiovascular: RRR, no murmur, no edema Gastrointestinal (Abdomen): normal bowel sounds, soft, nontender, no hepatosplenomegaly Musculoskeletal: Extremities: no cyanosis and no clubbing Skin: no rashes, warm and dry Neurologic: awake; not confused Results & Data Vital Signs (Past 12 Hours) Vital Signs Temp Pulse Pulse Resp BP BP Pulse Ox 05/24/24 08:16 36.6 C 72 18 100/60 94 05/24/24 07:22 05/24/24 07:21 71 05/24/24 04:37 36.7 C 70 18 94/54 L 94 05/23/24 23:45 36.4 C L 75 20 101/52 L 05/23/24 23:27 36.5 C 72 22 96/58 L 95 05/23/24 21:41 05/23/24 21:40 70 O2 Del Method 05/24/24 08:16 Room Air 05/24/24 07:22 Room Air 05/24/24 07:21 05/24/24 04:37 Room Air 05/23/24 23:45 Room Air 05/23/24 23:27 Room Air 05/23/24 21:41 Room Air 05/23/24 21:40 Laboratory Results Laboratory Results - last 24 hr 05/23/24 05/23/24 05/23/24 05:32 08:15 12:40 WBC RBC Hgb Hct MCV MCH MCHC RDW Std Deviation RDW Coeff of Nick Plt Count MPV Sodium Potassium Chloride Carbon Dioxide Anion Gap BUN Creatinine Est Cr Clr Drug Dosing eGFR BUN/Creatinine Ratio Glucose Calcium Total Bilirubin AST ALT Alkaline Phosphatase Total Protein Albumin Globulin Albumin/Globulin Ratio TSH 5.513 H Urine Color Yellow Urine Appearance Turbid A Urine pH 5.0 Ur Specific [place] 1.012 Urine Protein 3+ H Urine Glucose (UA) Negative Urine Ketones Negative Urine Blood 3+ H Urine Nitrite Negative Urine Bilirubin Negative Urine Urobilinogen Negative Ur Leukocyte Esterase 3+ H Urine WBC (Auto) >50 H Urine RBC (Auto) 11-20 H U Hyaline Cast (Auto) >20 H U Epithel Cells (Auto) 3-5 H Urine Bacteria (Auto) 4+ H Hyaline Casts Present A Ur Random Creatinine 69.4 Ur Random Sodium 92 Blood Type O Negative Antibody Screen NEGATIVE Crossmatch See Detail 05/24/24 07:47 WBC 3.96 L RBC 2.61 L Hgb 8.1 L Hct 26.0 L MCV 99.6 MCH 31.0 MCHC 31.2 L RDW Std Deviation 74.4 H RDW Coeff of Nick 20.2 H Plt Count 108 L MPV 10.8 Sodium 142 Potassium 4.4 Chloride 112 H Carbon Dioxide 21 Anion Gap 9 BUN 56 H Creatinine 3.25 H Est Cr Clr Drug Dosing 20.3 eGFR 18.73 BUN/Creatinine Ratio 17.2 Glucose 80 Calcium 8.7 Total Bilirubin 1.1 H AST 35 ALT 14 Alkaline Phosphatase 91 Total Protein 6.1 Albumin 3.4 Globulin 2.7 Albumin/Globulin Ratio 1.3 TSH Urine Color Urine Appearance Urine pH Ur Specific [place] Urine Protein Urine Glucose (UA) Urine Ketones Urine Blood Urine Nitrite Urine Bilirubin Urine Urobilinogen Ur Leukocyte Esterase Urine WBC (Auto) Urine RBC (Auto) U Hyaline Cast (Auto) U Epithel Cells (Auto) Urine Bacteria (Auto) Hyaline Casts Ur Random Creatinine Ur Random Sodium Blood Type Antibody Screen Crossmatch Microbiology 05/18/24 16:29 Aerobic Blood Culture - Final Blood No growth in Aerobic bottle after 5 days. Anaerobic Blood Culture - Final No growth in Anaerobic bottle after 5 days. 05/18/24 16:24 Aerobic Blood Culture - Final Blood No growth in Aerobic bottle after 5 days. Anaerobic Blood Culture - Final No growth in Anaerobic bottle after 5 days. PG Care Time/CCT Total # of Minutes Spent Total Time Spent with Patient: Total time spent is greater than 50% in coordination of care (as documented) at patient's floor/unit and/or counseling patient: Coding Level of Care Code 84815 SUB INP/OBS CARE 3/50MIN Diagnoses Acute kidney injury N17.9 Chronic kidney disease N18.9 Cirrhosis K74.60 Anemia D64.9 Anemia type: unspecified type Chronic anticoagulation Z79.01 Hx of aortic valve replacement, mechanical Z95.2 Delirium R41.0 (4) Anemia Anemia type: unspecified type Qualified Code(s): D64.9 - Anemia, unspecified
--- NOTE | 2024-05-24 13:40 | Hospitalist Progress Note ---
Date of Service May 24, 2024 Assessment & Plan (1) Acute kidney injury: Plan: 79-year-old man with complex underlying medical problems who was originally admitted with hematuria. He underwent Rezum procedure on December 05, had urethral stricture which was dilated on February 24, discharged with Marvin catheter. Urology consulted this admission for hematuria. Hematuria has resolved. 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 He also has a mechanical aortic valve but anticoagulation was discontinued about a month ago when he presented with INR of 10 on warfarin, has been having bleeding problems and significant anemia, his INR remains elevated at 1.4 due to his cirrhosis. At this point I agree that risks of anticoagulation likely outweigh the benefits with his anemia and ongoing hematuria. This admission he has had worsening renal function creatinine was He was treated for hepatorenal failure about a month ago at another hospital, was at [facility] on dialysis through mid-April and still has HD line in place. He was discharged home from [facility] 3 days [employer]. He has had hypotension (90s/50s) and progressively worsening renal failure this admission. Cr 1.74 on admission now 3.25 with low urine output max of 500 mL/24 last several days. -05/22 stopped all hypotensive meds, started midodrine, started albumin 25g IV q8h -transfused 1 unit RBCs 05/23 Hg 7.2-->8.1 -nephrology consulting -UOP remains 500/24h and rate of rise of Cr has slowed. Per gum machine filler recs stop albumin (2) Acute metabolic encephalopathy: Plan: Acute toxic metabolic encephalopathy Chronic hepatic encephalopathy and renal failure are contributing Initially was on cefepime but not for > last 72h Stopped sedating meds 05/22 including clonazepam and seroquel - per his he wasn't taking recently Ammonia remains at baseline around 30 - continue rifaximin and lactulose Remains confused but much more alert - oriented to self, a hospital (when given options), and [place] today, which is improvement Has had a significant amount of rigidity of both LE>UE. His says he was like this since discharge from [facility]. Stopped seroquel in case of extrapyramidal side effects. Seems somewhat improved on exam today, I am more able to range his LE. He does have some rigidity and cogwheeling of both UEs and I wonder about parkinsonism. continue to monitor exam. -continue with reorientation, avoid sedating and neurotoxic meds (3) Urinary tract infection with hematuria: Plan: Underlying BPH with rezum procedure and urethral stricture dilation, history of radiation Urologist Dr. Soto irrigated and repositioned his marvin catheter. Clots were evacuated. Hematuria resolved, did not require CBI -presumed to have had UTI, however urine culture from 05/15 with skin marco and urine and blood cultures from 05/18 are negative. treated with cefepime then ceftriaxone 05/20-05/24 will stop today -maintain marvin, plan to discharge with marvin and follow up with urologist -continue flomax (4) Anemia in chronic kidney disease (CKD): Plan: Anemia from CKD and acute blood loss anemia from gross hematuria -transfused 1u RBC 05/23 -monitor Hg (5) CHF (congestive heart failure): Plan: Chronic HFpEF, has mechanical AVR no longer on chronic anticoagulation because of cirrhosis and problems with bleeding/coagulopathy Mild troponin elevation this admission consistent with myocardial demand ischemia and poor clearance due to kidney dysfunction, no evidence of ACS Most recent echo 02/29/2024-EF 50 to 55%, moderate dilation of RV, LA, RA, mechanical aortic valve in place, trace aortic regurgitation, severe tricuspid regurgitation, diastolic dysfunction grade 3 -home po bumex held because of VINICIUS -metoprolol held because of hypotension -consider resume coumadin in future if possible, perhaps he can tolerate low dose with subtherapeutic INR range (6) Diabetes mellitus, type 2: Plan: Most recent A1c (02/19/2024) 5.1% diet controlled (7) Cirrhosis: Plan: With chronic hepatic encephalopathy, coagulopathy INR 1.4, thrombocytopenia -lactulose/rifaximin -avoid NSAIDS -monitor CMP Pancytopenia - leukopenia and thrombocytopenia probably related to cirrhosis, anemia related to CKD and blood loss Plan Depression with anxiety GERD- lansoprazole Hypothyroidism - Synthroid Code: DNR/DNI Dispo: discussed with care coord probably encompass when VINICIUS stable I updated his at bedside 05/22 Admission and Anticipated Discharge Date Admission Date: May 18, 2024 Results & Data Results & Data Vital Signs (Past 12 Hours) Vital Signs Temp Pulse Pulse Resp BP Pulse Ox O2 Del Method 05/24/24 11:22 36.4 C 72 20 94/54 L 94 Room Air 05/24/24 08:16 36.6 C 72 18 100/60 94 Room Air 05/24/24 07:22 Room Air 05/24/24 07:21 71 05/24/24 04:37 36.7 C 70 18 94/54 L 94 Room Air Laboratory Results 05/24/24 07:47 05/24/24 07:47 PG Care Time/CCT Total # of Minutes Spent Total Time Spent with Patient: Total time spent is greater than 50% in coordination of care (as documented) at patient's floor/unit and/or counseling patient: Coding Level of Care Code 49048 SUB INP/OBS CARE 3/50MIN Diagnoses Acute kidney injury N17.9 Acute metabolic encephalopathy G93.41 Urinary tract infection with hematuria N39.0; R31.9 Anemia in chronic kidney disease (CKD) N18.9; D63.1 CHF (congestive heart failure) I50.9 Diabetes mellitus, type 2 E11.9 Cirrhosis K74.60
[2024-05-25 07:35] LABS: Hematocrit (blood only) 26.4 % (42.0-52.0); Hemoglobin 8.4 g/dl (14.0-18.0); Mean Corpuscular Hemoglobin 32.1 pg (25.0-34.0); Mean Corpuscular Hgb Conc 31.8 g/dL (32.0-36.0); Mean Corpuscular Volume 100.8 fL (80.0-100.0); Mean Platelet Volume 10.7 fL (9.4-12.4); Platelet Count 104 K/uL (130-400); RDW Coefficient of Variation 19.9 % (11.5-14.5); Red Blood Count 2.62 M/uL (4.70-6.10); White Blood Count 3.55 K/ul (4.8-10.8)
[2024-05-25 08:03] LABS: Albumin Globulin Ratio 1.3 (0.9-2); Albumin Level 3.2 gm/dl (3.4-5.0); BUN Creatinine Ratio 18.2 (10-20); Calcium 8.7 mg/dl (8.6-10.3); Creatinine Clr Calc Pharmacy 19.4 ml/min; Globulin 2.5 gm/dl (2.5-4.0); Potassium 4.1 mmol/L (3.5-5.1); Total Protein 5.7 gm/dl (6.0-8.3)
--- NOTE | 2024-05-25 08:54 | Nephrology Progress Note ---
Date of Service May 25, 2024 Assessment & Plan (1) Acute kidney injury: Plan: * Oliguric VINICIUS likely related to anemia and relative hypotension. Urine sediment is difficult to assess due to Duran catheter placement and gross hematuria. Renal US was negative for hydronephrosis. Patient has not received IV contrast or been exposed to any known nephrotoxic agents. Clinically doubt HRS as Carie > 10 * Patient was transfused 1 unit PRBC 05/23/24 * He remains oliguric but kidney function has stabilized * Will provide 25 g albumin TID x 3 doses today because serum albumin is now dropping * Will administer 500 cc 0.9 NS today * No acute indication for HD. Continue to monitor BMP, UO (2) Chronic kidney disease: Plan: * Baseline creatinine 2.0 (3) Cirrhosis: Plan: * Albumin 3.4 * Will resume albumin 25 g IV TID because serum albumin < 3.5. Continue midodrine * Monitor UO, volume status closely * 05/18/[address] without IV contrast revealed moderate right and small volume left pleural effusions. Only a small volume of ascites/anasarca. No hydronephrosis. (4) Anemia: Plan: * Transfusion to maintain Hgb > 8.0 (5) Chronic anticoagulation: (6) Hx of aortic valve replacement, mechanical: (7) Delirium: Admission and Anticipated Discharge Date Admission Date: May 18, 2024 Subjective Mr. Jarquin was evaluated in his hospital room this morning. He voiced no medical concerns Review of Systems Review of Systems: Unobtainable due to cognitive status Physical Exam Constitutional: not in distress Eyes: PERRL, conjunctivae normal, anicteric sclerae ENMT: external ear and nose normal, oropharynx normal Neck: trachea midline, no thyromegaly Respiratory: normal respiratory effort, lungs clear to auscultation Cardiovascular: RRR, no murmur, no edema Gastrointestinal (Abdomen): normal bowel sounds, soft, nontender, no hepatosplenomegaly Musculoskeletal: Extremities: no cyanosis and no clubbing Skin: no rashes, warm and dry Neurologic: awake; not confused Results & Data Vital Signs (Past 12 Hours) Vital Signs Temp Pulse Resp BP Pulse Ox O2 Del Method 05/25/24 07:44 36.4 C L 76 18 100/59 L 96 Room Air 05/25/24 02:47 37 C 76 18 95/55 L 95 Room Air 05/24/24 22:45 36.6 C 78 18 109/59 L 94 Room Air Laboratory Results Laboratory Results - last 24 hr 05/25/24 07:04 WBC 3.55 L RBC 2.62 L Hgb 8.4 L Hct 26.4 L MCV 100.8 H MCH 32.1 MCHC 31.8 L RDW Std Deviation 73.0 H RDW Coeff of Nick 19.9 H Plt Count 104 L MPV 10.7 Sodium 141 Potassium 4.1 Chloride 111 H Carbon Dioxide 19 L Anion Gap 11 BUN 57 H Creatinine 3.14 H Est Cr Clr Drug Dosing 19.4 eGFR 19.52 BUN/Creatinine Ratio 18.2 Glucose 70 Calcium 8.7 Total Bilirubin 1.0 AST 36 ALT 13 Alkaline Phosphatase 83 Total Protein 5.7 L Albumin 3.2 L Globulin 2.5 Albumin/Globulin Ratio 1.3 PG Care Time/CCT Total # of Minutes Spent Total Time Spent with Patient: Total time spent is greater than 50% in coordination of care (as documented) at patient's floor/unit and/or counseling patient: Coding Level of Care Code 36874 SUB INP/OBS CARE 3/50MIN Diagnoses Acute kidney injury N17.9 Chronic kidney disease N18.9 Cirrhosis K74.60 Anemia D64.9 Anemia type: unspecified type Chronic anticoagulation Z79.01 Hx of aortic valve replacement, mechanical Z95.2 Delirium R41.0 (4) Anemia Anemia type: unspecified type Qualified Code(s): D64.9 - Anemia, unspecified
--- NOTE | 2024-05-25 10:02 | Hospitalist Progress Note ---
Date of Service May 25, 2024 Assessment & Plan (1) Acute kidney injury: Plan: 79-year-old man with complex underlying medical problems who was originally admitted with hematuria. He underwent Rezum procedure on December 05, had urethral stricture which was dilated on February 24, discharged with Marvin catheter. Urology consulted this admission for hematuria. Hematuria has resolved. 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 He also has a mechanical aortic valve but anticoagulation was discontinued about a month ago when he presented with INR of 10 on warfarin, has been having bleeding problems and significant anemia, his INR remains elevated at 1.4 due to his cirrhosis. At this point I agree that risks of anticoagulation likely outweigh the benefits with his anemia and ongoing hematuria. He was treated for hepatorenal failure about a month ago at another hospital, was at [facility] on dialysis through mid-April and still has HD line in place. He was discharged home from [facility] 3 days [employer]. This admission he has had worsening renal function creatinine was 1.7s on admission and ajay to 3.25, now downtrending. VINICIUS caused by hypoperfusion/hypotension -05/22 stopped all hypotensive meds, started midodrine, started albumin 25g IV q8h. albumin stopped 05/24 -transfused 1 unit RBCs 05/23 Hg 7.2-->8.1 -nephrology consulting -UOP remains 500/24h and creatinine decreased to 3.14 today (2) Acute metabolic encephalopathy: Plan: Acute toxic metabolic encephalopathy Chronic hepatic encephalopathy and renal failure are contributing Initially was on cefepime but not for > last 72h Stopped sedating meds 05/22 including clonazepam and seroquel - per his he wasn't taking recently Ammonia remains at baseline around 30 - continue rifaximin and lactulose Remains confused but much more alert - oriented to self, intermittently to a hospital and the town Has had a significant amount of rigidity of both LE>UE. His says he was like this since discharge from [facility]. Stopped seroquel in case of extrapyramidal side effects. Seems somewhat improved on exam today, I am more able to range his LE. He does have some rigidity and cogwheeling of both UEs and I wonder about parkinsonism. Reviewed brain MRI 08/2023 which is pretty unremarkable -consulted neurology wrt possible parkinsonism -continue with reorientation, avoid sedating and neurotoxic meds (3) Urinary tract infection with hematuria: Plan: Underlying BPH with rezum procedure and urethral stricture dilation, history of radiation Urologist Dr. Soto irrigated and repositioned his marvin catheter. Clots were evacuated. Hematuria resolved, did not require CBI -presumed to have had UTI, however urine culture from 05/15 with skin marco and urine and blood cultures from 05/18 are negative. treated with cefepime then ceftriaxone 05/20-05/24 will stop today -maintain marvin, plan to discharge with marvin and follow up with urologist -continue flomax (4) Anemia in chronic kidney disease (CKD): Plan: Anemia from CKD and acute blood loss anemia from gross hematuria -transfused 1u RBC 05/23 -monitor Hg (5) CHF (congestive heart failure): Plan: Chronic HFpEF, has mechanical AVR no longer on chronic anticoagulation because of cirrhosis and problems with bleeding/coagulopathy Mild troponin elevation this admission consistent with myocardial demand ischemia and poor clearance due to kidney dysfunction, no evidence of ACS Most recent echo 02/29/2024-EF 50 to 55%, moderate dilation of RV, LA, RA, mechanical aortic valve in place, trace aortic regurgitation, severe tricuspid regurgitation, diastolic dysfunction grade 3 -home po bumex held because of VINICIUS -metoprolol held because of hypotension -consider resume coumadin in future if possible, perhaps he can tolerate low dose with subtherapeutic INR range (6) Diabetes mellitus, type 2: Plan: Most recent A1c (02/19/2024) 5.1% diet controlled (7) Cirrhosis: Plan: With chronic hepatic encephalopathy, coagulopathy INR 1.4, thrombocytopenia -lactulose/rifaximin -avoid NSAIDS -monitor CMP Pancytopenia - leukopenia and thrombocytopenia probably related to cirrhosis, anemia related to CKD and blood loss Plan Depression with anxiety GERD- lansoprazole Hypothyroidism - Synthroid Code: DNR/DNI Dispo: probably encompass soon I updated his at bedside 05/22 Admission and Anticipated Discharge Date Admission Date: May 18, 2024 Subjective Awake and seems a little bit more oriented today UOP staying 400-500 mL/24h off albumin Not short of breath Remains very stiff Physical Exam 2 Physical Exam: PHYSICAL EXAMINATION Last 24h vital signs reviewed, see documentation in flowsheet General: comfortable appearing, no distress HEENT: Normocephalic, atraumatic, pupils round and equal, sclerae anicteric, no conjunctival injection, moist mucus membranes Lungs: Normal respiratory effort. Clear to auscultation bilaterally. No RRW Heart: Regular rate and rhythm, no murmurs. No JVD Abdomen: Soft, nontender, nondistended. Bowel sounds present. Extremities: Warm, dry, well-perfused. anasarca present of abdominal wall thighs buttocks. Neuro: Alert and oriented x self and to hospital, cannot identify the name of the hospital or the town, not oriented to why he is here, very hard of hearing, face symmetric, bradykinesia, no resting tremor observed, mild tremor extending his hands without asterixis, rigidity of lower extremities greater than upper extremities, cogwheeling bilateral upper extremities, patellar reflexes intact without spread, toes downgoing, significant generalized weakness 3/5 throughout Psych: Normal affect and behavior Results & Data Results & Data Vital Signs (Past 12 Hours) Vital Signs Temp Pulse Resp BP Pulse Ox O2 Del Method 05/25/24 07:44 36.4 C L 76 18 100/59 L 96 Room Air 05/25/24 02:47 37 C 76 18 95/55 L 95 Room Air 05/24/24 22:45 36.6 C 78 18 109/59 L 94 Room Air Laboratory Results 05/25/24 07:04 05/25/24 07:04 PG Care Time/CCT Total # of Minutes Spent Total Time Spent with Patient: Total time spent is greater than 50% in coordination of care (as documented) at patient's floor/unit and/or counseling patient: Coding Level of Care Code 24787 SUB INP/OBS CARE 2/35MIN Diagnoses Acute kidney injury N17.9 Acute metabolic encephalopathy G93.41 Urinary tract infection with hematuria N39.0; R31.9 Anemia in chronic kidney disease (CKD) N18.9; D63.1 CHF (congestive heart failure) I50.9 Diabetes mellitus, type 2 E11.9 Cirrhosis K74.60
[2024-05-25] MEDS: SODIUM CHLORIDE 0.9% 500 ML IV SCH (10:26)
[2024-05-25] MEDS: ALBUMIN 25% 25 GM/100 ML VIAL IV SCH (10:26)
--- NOTE | 2024-05-25 10:41 | Neurology Consultation ---
Date of Consultation May 25, 2024 Assessment & Plan (1) PSP (progressive supranuclear palsy): History of Present Illness Attending Physician: Fatuma Dukes MD History of Present Illness 79 yo male with consult for stiffness. pt with several complex medical issues and ongoing infection and metabolic disorders. pt apparently having difficulty walking and stiffness. no prior dx of parkinson. per physical therapy this morning, pt has been immobile this weekend and mostly bedbound but he did walk short distance last week. this morning he had hard time walking with walker because he was feeling tire and stiff. chart reviewed. mri brain reviewed. admission HPI: 79-year-old male presenting to ED for hours of hematuria, with associated confusion and weakness per the patient's . Was recently evaluated in ED 05/15 and discharged on cefdinir. ED course: CBC - RBC 2.83, H&H 9.1/29.0, MCV 102.5, MCHC 31.4, RDW 65.4, platelets 127; PT 14, INR 13; CMP - chloride 109, carbon dioxide 19, BUN 38, creatinine 2.05; lactate 2.1; calcium 8.5; AST 76, alk phosphatase 152, albumin 3; troponin 82.7; UA turbid appearance, 3+ protein, trace ketones, 3+ blood, positive nitrate, 2+ bilirubin, 1+ LE, RBC, WBC, 1+ bacteria.; CXR mild pulmonary vascular congestion, small right greater than left pleural effusion with underlying atelectasis/airspace disease.; CTAP moderate volume right and small volume left pleural effusions with underlying atelectasis, small volume ascites, its cardia, cirrhosis, urinary bladder wall thickening, Duran catheter in urinary bladder, renal cyst and renal calculi noted; head CT no acute intracranial process.; EKG sinus rhythm with first-degree AV block, rate 70s. Provided with NSS 1 L, and cefepime 2 g in ED. Patient is a 79-year-old male with PMHx CKD with anemia, chronic Duran catheter, hypothyroidism, cirrhosis, CHF, T2DM, GERD, and history of prostatic malignancy presenting for hematuria. is present at time of visit and able to provide majority of history as patient is a poor historian. States that on 05/15 patient was brought to the ED [facility] for hematuria that resolved while he was in the ED, and he was ultimately discharged home on cefdinir. On 05/16 patient was brought to a different ED for pressure wound on his upper buttocks, which was dressed and managed. Patient arriving today, 05/18, for recurrence of hematuria that has increased in nature. also states that the patient's mental status has declined, as he appears more confused and weak than normal. States that he continues to complain of being cold, but otherwise has not complained of anything else. Patient denies any pain when asked if he specifically has head, chest, or stomach pain. states patient has not had fever/chills, has not complained of shortness of breath, no vomiting or diarrhea, and no additional sick contacts. Allergies Allergy/AdvReac Type Severity Reaction Status Date / Time plasma protein fraction Allergy Severe FROZEN Verified 05/18/24 19:42 PLASMA-- DEVELOPED HIVES Home Medications Medication Instructions Recorded Confirmed Type cholecalciferol (vitamin D3) 50 50 mcg PO QPM 10/07/22 05/18/24 History mcg (2,000 unit) capsule clonazepam 0.5 mg tablet 0.5 mg PO DAILY PRN Anxiety 10/07/22 05/18/24 History hydrocortisone acetate 1 % topical 1 applic topical BID PRN Skin 10/07/22 05/18/24 History cream Irritation sertraline 100 mg tablet 100 mg PO HS 11/25/22 05/18/24 History tamsulosin 0.4 mg capsule 0.8 mg PO QPM 11/25/22 05/18/24 History cyanocobalamin (vitamin B-12) 1,000 mcg PO DAILY 08/31/23 05/18/24 History 1,000 mcg tablet (Vitamin B-12) levothyroxine 75 mcg tablet 75 mcg PO QAM 08/31/23 05/18/24 History (Synthroid) lactulose 10 gram/15 mL oral syrup 30 g PO BID 01/22/24 05/18/24 History ondansetron 4 mg disintegrating 4 mg PO Q6H PRN Nausea And Vomiting 02/28/24 05/18/24 History tablet bumetanide 1 mg tablet 1 mg PO .3X WEEK 05/15/24 05/18/24 History cefdinir 300 mg capsule 300 mg PO BID #14 caps 05/15/24 05/18/24 Rx hydroxyzine HCl 10 mg tablet 10 mg PO BID PRN Itching 05/15/24 05/18/24 History lansoprazole 30 mg capsule,delayed 30 mg PO BID 05/15/24 05/18/24 History release quetiapine 25 mg tablet 25 mg PO QAM 05/15/24 05/18/24 History quetiapine 50 mg tablet 50 mg PO HS 05/15/24 05/18/24 History metoprolol tartrate 25 mg tablet 25 mg PO BID 05/18/24 05/18/24 History rifaximin 550 mg tablet (Xifaxan) 550 mg PO BID 05/18/24 05/18/24 History Patient History Medical History Non-ST elevated myocardial infarction (non-STEMI) Acute kidney injury superimposed on CKD Gross hematuria Chronic kidney disease Hypothyroidism Hx of aortic aneurysm ascending aortic aneurysm s/p dissection 05/2019 and subsequent repair of aortic root (28mm Gelweave graft) Failure to thrive in adult admission [facility] 08/31/23-09/12/23. pt's states that he has improved slightly since d/c (he has also since had an admission to [facility] since that time per ; unknown dx) Thrombocytopenia Prostate CA XRT 2020; Rezum 12/05/22 Dementia pt had significant confusion during 09/2023 admission [facility]; states that he is 'much better' at home. she also notes increased confusion after General Anesthesia GERD (gastroesophageal reflux disease) Portal hypertension Diabetes type 2, controlled metformin d/c during [facility] admission 2/2 hypoglycemia (pt has been having GI issues and has not been eating normal diet) Cirrhosis follows with GI Anemia pt's reports ongoing rectal bleeding (GI is aware) since XRT for prostate Ca; pt takes iron supplement; recent iron infusions and procrit injections (02/12/24 and will have another on 02/19/24) Generalized weakness uses cane to ambulate Urinary tract infection recurrent; follows with urology Nausea & vomiting current sx; following with GI CHF (congestive heart failure) follows with [facility] Osteoarthritis Anxiety Hypertension meds reduced during 09/2023 [facility] admission 2/2 hypotension Suspected sleep apnea unaware History of COVID-19 x2 ; 10/2022 most recent (pt was asymptomatic); no ongoing sx History of fractured vertebra Cervical fracture 11/18/21- medical management recommended, follows with physical therapy, "full ROM" per patient Surgical History History of endoscopy capsule endoscopy History of flexible sigmoidoscopy History of colonoscopy History of cholecystectomy History of appendectomy History of prostate surgery multiple; most recent Rezum 12/05/22: MAC without issue History of aortic aneurysm repair 05/2021 in [facility] Follows with [facility] Cardiology Family History Mother Diabetes Hypertension Father Diabetes Other No family history of adverse response to anesthesia Social History Smoking Status: Never smoker Second Hand Exposure: No; Do You Dip or Chew Tobacco: No; Hx Alcohol Use: No Hx Substance Use: No Preferred Language: Belarusian Communication Ability: Impaired Retail Cashier Required: No Beliefs That Will Affect Care: None marital status: Current Living Situation: Spouse current occupational status: retired Other Information That Helps Us Care for You: No Feels Safe at Home: Yes Safety Concerns: Feels Safe At This Time Assistive Devices: Walker and Wheelchair Exam (Neuro) Physical Exam: HEENT: normocephalic grossly Neuro: Mental: Alert, not sure of the city or year, not sure of the hospital name but follows instruction well, fluent speech, normal comprehension, no apraxia, CN: PERRL, limited vertical up and down gaze, intact horizontal gaze. symmetric face, Motor: No abnormal movements, increase tone t/o upper and lower limb, 4+/5 t/o bilaterally grossly, difficult exam due to pt's overall condition and cooperation issue. Coord: intact with his arms b/l grossly. DTR: 1+ sym b/l Gait:very difficult to get up, but once got up and with walker, took small steps and needed assistance from to walk, only able to take small steps around the bed. per physical therapy report, pt seems to fall backwards and with axial stiffness when sitting position. Impression: 79 yo male with ongoing complex medical issues with diffuse increase tone and gait disturbance in setting of encephalopathy, known iron deficiency, UTI, cirrhosis, kidney failure. Several of his current conditions can cause him to be "stiff" and cause walking problem but there are some suggestion that he may also have PSP (progressive supranuclear palsy) based on his limited vertical eye movement, diffuse stiffness and axial stiffness specially and falling backwards usually and cognitive changes. MRI brain with mild suggestion of humming bird and morning glory signs (very subtle) at the midbrain level. it is difficult at this point to distinguish how much his current medical issues are contributing, including just deconditioning also. PSP diagnosis is chronic condition and routinely managed as outpt for symptoms, no good treatment available other than supportive care. Recommendations: -continue current medical management. will need ongoing rehab/therapy for his mobility. fall precaution. watch for swallowing change or problem. he can routine outpt neurology consultation once he is released from the hospital. please call again if new question. Chart reviewed I have spent more than 50% educating patient about potential diagnosis and neurological evaluation and coordinating care with patient's treatment team. Total time spent (including chart review and coordination of care): 60 min (this includes chart review). Results & Data Vital Signs (Past 12 Hours) Vital Signs Temp Pulse Resp BP Pulse Ox O2 Del Method 05/25/24 07:44 36.4 C L 76 18 100/59 L 96 Room Air 05/25/24 02:47 37 C 76 18 95/55 L 95 Room Air 05/24/24 22:45 36.6 C 78 18 109/59 L 94 Room Air PG Care Time/CCT Total # of Minutes Spent Total Time Spent with Patient: Total time spent is greater than 50% in coordination of care (as documented) at patient's floor/unit and/or counseling patient: Coding Level of Care Code 32057 IN/OBS CONSULT LVL 4,60M Diagnoses PSP (progressive supranuclear palsy) G23.1
[2024-05-26] MEDS: ACETAMINOPHEN 325 MG TAB PO PRN (04:08)
--- NOTE | 2024-05-26 08:47 | Nephrology Progress Note ---
Date of Service May 26, 2024 Assessment & Plan (1) Acute kidney injury: Plan: * Oliguric VINICIUS likely related to anemia and relative hypotension. Urine sediment is difficult to assess due to Duran catheter placement and gross hematuria. Renal US was negative for hydronephrosis. Patient has not received IV contrast or been exposed to any known nephrotoxic agents. Clinically doubt HRS as Carie > 10 * Patient was transfused 1 unit PRBC 05/23/24 * Creatinine has remained stable at 3.2. UO improved to 554 cc last shift. * Will administer 1L D5W w/ 100 mEq NaHCO3 to correct metabolic acidosis * Continue midodrine 10 mg TID * No acute indication for HD. Continue to monitor BMP, UO (2) Chronic kidney disease: Plan: * Baseline creatinine 2.0 (3) Cirrhosis: Plan: * Albumin improved to 3.6 following IV SPA * 05/18/[address] without IV contrast revealed moderate right and small volume left pleural effusions. Only a small volume of ascites/anasarca. No hydronephrosis (4) Anemia: Plan: * Transfusion to maintain Hgb > 8.0 (5) Chronic anticoagulation: (6) Hx of aortic valve replacement, mechanical: (7) Delirium: Admission and Anticipated Discharge Date Admission Date: May 18, 2024 Subjective Mr. Jarquin was evaluated in his hospital room this morning. He was alert but confused. Review of Systems Review of Systems: Unobtainable due to cognitive status Physical Exam Constitutional: not in distress Eyes: PERRL, conjunctivae normal, anicteric sclerae ENMT: external ear and nose normal, oropharynx normal Neck: trachea midline, no thyromegaly Respiratory: normal respiratory effort, lungs clear to auscultation Cardiovascular: RRR, no murmur, no edema Gastrointestinal (Abdomen): normal bowel sounds, soft, nontender, no hepatosplenomegaly Musculoskeletal: Extremities: no cyanosis and no clubbing Skin: no rashes, warm and dry Neurologic: awake; not confused Results & Data Vital Signs (Past 12 Hours) Vital Signs Temp Pulse Pulse Resp BP Pulse Ox O2 Del Method 05/26/24 07:52 36.0 C L 76 18 95/53 L 93 Room Air 05/26/24 07:28 117 H 05/26/24 02:53 37 C 115 H 18 97/55 L 95 Room Air 05/25/24 23:38 37 C 92 H 18 107/55 L 93 Room Air 05/25/24 21:48 85 Laboratory Results Laboratory Results - last 24 hr 05/26/24 07:32 Sodium 147 H Potassium 4.2 Chloride 117 H Carbon Dioxide 15 L Anion Gap 15 H BUN 57 H Creatinine 3.29 H Est Cr Clr Drug Dosing 18.5 eGFR 18.45 BUN/Creatinine Ratio 17.3 Glucose 65 L Calcium 9.3 Total Bilirubin 1.4 H AST 48 H ALT 14 Alkaline Phosphatase 78 Total Protein 6.2 Albumin 3.6 Globulin 2.6 Albumin/Globulin Ratio 1.4 PG Care Time/CCT Total # of Minutes Spent Total Time Spent with Patient: Total time spent is greater than 50% in coordination of care (as documented) at patient's floor/unit and/or counseling patient: Coding Level of Care Code 20517 SUB INP/OBS CARE 3/50MIN Diagnoses Acute kidney injury N17.9 Chronic kidney disease N18.9 Cirrhosis K74.60 Anemia D64.9 Anemia type: unspecified type Chronic anticoagulation Z79.01 Hx of aortic valve replacement, mechanical Z95.2 Delirium R41.0 (4) Anemia Anemia type: unspecified type Qualified Code(s): D64.9 - Anemia, unspecified
[2024-05-26 08:53] LABS: Albumin Globulin Ratio 1.4 (0.9-2); Albumin Level 3.6 gm/dl (3.4-5.0); BUN Creatinine Ratio 17.3 (10-20); Bilirubin,Total 1.4 mg/dl (0.2-1.0); Calcium 9.3 mg/dl (8.6-10.3); Creatinine Clr Calc Pharmacy 18.5 ml/min; Globulin 2.6 gm/dl (2.5-4.0); Potassium 4.2 mmol/L (3.5-5.1); Total Protein 6.2 gm/dl (6.0-8.3)
[2024-05-26] MEDS: SODIUM BICARBONATE 8.4% 100 MEQ in DEXTROSE 5% 1,000 ML IV SCH (10:30)
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
--- NOTE | 2024-05-26 13:23 | XRay Report ---
KUB HISTORY: Acute abdominal pain with distention abd distension, nausea COMPARISON: CT abdomen and pelvis 05/18/2024 FINDINGS: Right upper quadrant surgical clips are redemonstrated. Cardiomegaly with median sternotomy . Nonobstructive bowel gas pattern. Mild gaseous distention of the large bowel. No renal calculi. No ureteral calculi. No pneumoperitoneum or pneumatosis. No fracture. IMPRESSION: Nonobstructive bowel gas pattern. ACT 112: Negative or not required by law. The above report was generated using voice recognition software. It may contain grammatical, syntax o r spelling errors. Electronically signed by: Paul Reyna M.D. 05/26/2024 1:22 PM
--- NOTE | 2024-05-26 13:27 | XRay Report ---
XR chest 1V portable CLINICAL HISTORY: Tachypnea. COMPARISON STUDY: Chest radiograph May 18, 2024. FINDINGS: A dual lumen right internal jugular dialysis catheter remains in place. There are median st ernotomy wires. Moderate cardiomegaly is noted. Pulmonary edema persists. A moderate right pleural ef fusion has increased in size. Associated airspace opacity is present. There is a small left pleural e ffusion. There is no pneumothorax. IMPRESSION: 1. Increase in size of a moderate right pleural effusion. Associated airspace opacity favors atelecta sis although pneumonia could appear similar. Small left pleural effusion. 2. Cardiomegaly with persistent pulmonary edema. ACT 112: Negative or not required by law. Electronically signed by: Atif Langston M.D. 05/26/2024 1:25 PM
[2024-05-26 17:16] LABS: Base Excess VBG -7.7 mEq/L; HCO3 VBG 17 mmol/L; Oxygen Saturation VBG 68.2 %; PCO2 VBG 30 mmHg (38-50); PO2 VBG 40 mmHg; pH VBG 7.35 (7.36-7.41)
[2024-05-26] MEDS: dexAMETHasone 2 MG in SYRINGE 0 ML IV SCH (17:26)
[2024-05-26 17:40] LABS: Potassium 4.2 mmol/L (3.5-5.1)
[2024-05-26 17:46] LABS: BUN Creatinine Ratio 16.5 (10-20); Creatinine Clr Calc Pharmacy 17.1 ml/min
[2024-05-26] MEDS: ONDANSETRON INJ 2 MG/ML 2 ML VIAL IV PRN (18:10)
[2024-05-26] MEDS: LACTULOSE SYRUP 30 GM/45 ML UDP PO SCH (21:33)
[2024-05-26] MEDS: MELATONIN 3 MG TAB PO SCH (21:33)
[2024-05-26 22:36] LABS: Influenza A virus by PCR Negative (Neg); Influenza B virus by PCR Negative (Neg); RSV by PCR Negative (Neg); SARS CoV2 RNA(COVID-19) Ceph NEGATIVE (Negative)
[2024-05-27 08:21] LABS: Hematocrit (blood only) 26.4 % (42.0-52.0); Hemoglobin 8.5 g/dl (14.0-18.0); Mean Corpuscular Hemoglobin 32.4 pg (25.0-34.0); Mean Corpuscular Hgb Conc 32.2 g/dL (32.0-36.0); Mean Corpuscular Volume 100.8 fL (80.0-100.0); Mean Platelet Volume 10.7 fL (9.4-12.4); Platelet Count 101 K/uL (130-400); RDW Coefficient of Variation 19.7 % (11.5-14.5); RDW Standard Deviation 73.8 fL (36.4-46.3); Red Blood Count 2.62 M/uL (4.70-6.10); White Blood Count 3.38 K/ul (4.8-10.8)
[2024-05-27] MEDS: COSYNTROPIN 250 MCG in SYRINGE 4 ML IV ONE (08:25)
--- NOTE | 2024-05-27 08:35 | Nephrology Progress Note ---
Date of Service May 27, 2024 Assessment & Plan (1) Acute kidney injury: Plan: * Oliguric VINICIUS likely related to anemia and relative hypotension. Urine sediment is difficult to assess due to Duran catheter placement and gross hematuria. Renal US was negative for hydronephrosis. Patient has not received IV contrast or been exposed to any known nephrotoxic agents. Clinically doubt HRS as Carie > 10 * Patient was transfused 1 unit PRBC 05/23/24 * Patient remains in injury phase. Creatinine has risen to 3.5, he remains oliguric and CXR shows worsening pulmonary vascular congestion * I have spoken w/ primary service, Mr. Jarquin's and daughter by telephone this morning. The family would like dialysis provided as it has helped Mr. Jarquin in the past * Will provide 2 hours HD today and attempt 1 L UF. Explained that HD may be complicated due to relative low BP * Continue midodrine 10 mg TID * Touched briefly upon outpatient HD w/ patient's family today. They are uncertain whether he would want this. Recommend consultation w/ palliative care to discuss prognosis and goals of care w/ family (2) Chronic kidney disease: Plan: * Baseline creatinine 2.0 (3) Cirrhosis: Plan: * Albumin improved to 3.6 following IV SPA * 05/18/[address] without IV contrast revealed moderate right and small volume left pleural effusions. Only a small volume of ascites/anasarca. No hydronephrosis (4) Anemia: Plan: * Transfusion to maintain Hgb > 8.0 (5) Chronic anticoagulation: (6) Hx of aortic valve replacement, mechanical: (7) Delirium: Admission and Anticipated Discharge Date Admission Date: May 18, 2024 Subjective Mr. Jarquin was evaluated in his hospital room this morning. He was alert but confused. Review of Systems Review of Systems: Unobtainable due to cognitive status Physical Exam Constitutional: not in distress Eyes: PERRL, conjunctivae normal, anicteric sclerae ENMT: external ear and nose normal, oropharynx normal Neck: trachea midline, no thyromegaly Respiratory: normal respiratory effort, lungs clear to auscultation Cardiovascular: RRR, no murmur, no edema Gastrointestinal (Abdomen): normal bowel sounds, soft, nontender, no hepatosplenomegaly Musculoskeletal: Extremities: no cyanosis and no clubbing Skin: no rashes, warm and dry Neurologic: awake; not confused Results & Data Vital Signs (Past 12 Hours) Vital Signs Temp Pulse Pulse Resp BP BP Pulse Ox 05/27/24 07:58 36.2 C L 83 18 93/57 L 95 05/27/24 07:12 83 05/27/24 04:07 36.3 C L 86 20 101/63 94 05/26/24 23:26 36.8 C 90 20 98/58 L 95 05/26/24 21:53 92 H O2 Del Method 05/27/24 07:58 Room Air 05/27/24 07:12 05/27/24 04:07 Room Air 05/26/24 23:26 Room Air 05/26/24 21:53 Laboratory Results Laboratory Results - last 24 hr 05/26/24 05/26/24 05/26/24 07:32 16:54 16:57 WBC RBC Hgb Hct MCV MCH MCHC RDW Std Deviation RDW Coeff of Nick Plt Count MPV VBG pH 7.35 L VBG pCO2 30 L VBG pO2 40 VBG HCO3 17 VBG O2 Saturation 68.2 VBG Base Excess -7.7 Sodium 146 H Potassium 4.2 Chloride 117 H Carbon Dioxide 18 L Anion Gap 11 BUN 59 H Creatinine 3.57 H Est Cr Clr Drug Dosing 17.1 eGFR 16.73 BUN/Creatinine Ratio 16.5 Glucose 115 H POC Glucose 122 H Calcium 9.0 Ammonia 76.0 H Folate 8.75 Random Cortisol 5.72 Cortisol Response SARS-CoV-2 (PCR) Influenza Type A (PCR) Influenza Type B (PCR) RSV (RT-PCR) 05/26/24 05/26/24 05/27/24 21:04 Unknown 07:55 WBC RBC Hgb Hct MCV MCH MCHC RDW Std Deviation RDW Coeff of Nick Plt Count MPV VBG pH VBG pCO2 VBG pO2 VBG HCO3 VBG O2 Saturation VBG Base Excess Sodium Potassium Chloride Carbon Dioxide Anion Gap BUN Creatinine Est Cr Clr Drug Dosing eGFR BUN/Creatinine Ratio Glucose POC Glucose 152 H 144 H Calcium Ammonia Folate Random Cortisol Cortisol Response SARS-CoV-2 (PCR) NEGATIVE Influenza Type A (PCR) Negative Influenza Type B (PCR) Negative RSV (RT-PCR) Negative 05/27/24 07:58 WBC 3.38 L RBC 2.62 L Hgb 8.5 L Hct 26.4 L MCV 100.8 H MCH 32.4 MCHC 32.2 RDW Std Deviation 73.8 H RDW Coeff of Nick 19.7 H Plt Count 101 L MPV 10.7 VBG pH VBG pCO2 VBG pO2 VBG HCO3 VBG O2 Saturation VBG Base Excess Sodium 144 Potassium 4.8 Chloride 114 H Carbon Dioxide 18 L Anion Gap 12 H BUN 63 H Creatinine 3.56 H Est Cr Clr Drug Dosing 17.1 eGFR 16.79 BUN/Creatinine Ratio 17.7 Glucose 139 H POC Glucose Calcium 8.9 Ammonia Folate Random Cortisol Cortisol Response SARS-CoV-2 (PCR) Influenza Type A (PCR) Influenza Type B (PCR) RSV (RT-PCR) PG Care Time/CCT Total # of Minutes Spent Total Time Spent with Patient: Total time spent is greater than 50% in coordination of care (as documented) at patient's floor/unit and/or counseling patient: Coding Level of Care Code 24298 SUB INP/OBS CARE 3/50MIN Diagnoses Acute kidney injury N17.9 Chronic kidney disease N18.9 Cirrhosis K74.60 Anemia D64.9 Anemia type: unspecified type Chronic anticoagulation Z79.01 Hx of aortic valve replacement, mechanical Z95.2 Delirium R41.0 (4) Anemia Anemia type: unspecified type Qualified Code(s): D64.9 - Anemia, unspecified
[2024-05-27 08:38] LABS: BUN Creatinine Ratio 17.7 (10-20); Calcium 8.9 mg/dl (8.6-10.3); Creatinine Clr Calc Pharmacy 17.1 ml/min; Potassium 4.8 mmol/L (3.5-5.1)
--- NOTE | 2024-05-27 10:39 | Hospitalist Progress Note ---
Date of Service May 27, 2024 Assessment & Plan (1) Acute kidney injury: Plan: Presented with Cr 2. Baseline Cr earlier this year <2. Now 3.57 this evening. Was hospitalized for nearly a month at [facility] this fall. Started on HD during that hospitalization. Does have right sided IJ permcath in place still. Per records had hepatorenal syndrome while in [facility]. Following his month-long stay at [place] was discharged to [facility]; stayed there for about 3 weeks. At some point either during his stay at [facility] or while at [facility] his HD was discontinued due to some renal recovery. Was on bicarbonate drip today for worsening metabolic acidosis. Despite the drip his creatinine is worse this evening vs this am. Further, he is 3rd spacing, and he has worsening pulm edema and effusions on cxr. 05/22 to 05/24 - was on IV albumin. transfused 1 unit PRBCs 05/23. appreciate [facility] nephrology assistance. (2) Acute metabolic encephalopathy: Plan: Likely multifactorial causes -- * elevated ammonia level today in the 70s * toxic effects from seroquel & benzos (clonazepam) both of which were stopped on 05/22 * acidosis could be contributing * disruption of sleep-wake cycle likely contributing * can't rule out infectious causes Plan - * ideally a repeat brain MRI would be helpful but he is too ill/fragile to safely put in the MRI machine * cont lactulose & rifaximin; no stools today thus increase the lactulose * correct his acidosis * consider diagnostic paracentesis to rule out SBP causing metabolic encephalopathy as he has worsening distension on exam (3) Urinary tract infection with hematuria: Plan: Known, underlying BPH He underwent Rezum procedure on December 05 had urethral stricture which was dilated on February 24, discharged with Marvin catheter Urologist Dr. Soto irrigated and repositioned his marvin catheter earlier this stay. Clots were evacuated. Hematuria resolved, did not require CBI At time of admission presumed to have had UTI, however urine culture from 05/15 with skin marco and urine and blood cultures from 05/18 were negative Was treated with cefepime then ceftriaxone 05/20-05/24 Cont marvin now and keep in at time of discharge Will need [facility] Urology f/u post-discharge His BPs have been low today thus need to hold flomax (4) Anemia in chronic kidney disease (CKD): Plan: transfused 1u PRBCs 05/23 repeat CBC am (5) CHF (congestive heart failure): Plan: Chronic HFpEF has mechanical AVR but is no longer on chronic anticoagulation because of cirrhosis and problems with bleeding/coagulopathy Echo 02/29/2024 -- EF 50 to 55%, moderate dilation of RV, LA, RA, mechanical aortic valve in place, trace aortic regurgitation, severe tricuspid regurgitation, diastolic dysfunction grade 3 Metoprolol & bumex both on hold due to low BP & VINICIUS On exam looks intravascularly dry but is 3rd spacing with pulm edema/effusions & probable ascites Cirrhosis and VINICIUS also contributing to volume status (6) Diabetes mellitus, type 2: Plan: Most recent A1c (02/19/2024) 5.1% Now with hypoglycemia - adrenal insufficiency? poor glycogen reserve in setting of cirrhosis and chronic illness? other? (7) Cirrhosis: Plan: With hepatic encephalopathy, coagulopathy INR 1.4, thrombocytopenia Cont lactulose/rifaximin Consider paracentesis - r/o SBP - in light of severely altered mental status Cont midodrine TID for low BP (8) Muscle tone increased: Plan: appears to have UMN signs on exam due to hepatic encephalopathy? due to spinal cord lesions? (does have h/o cervical spine & thoracic spine fractures - could he have cord impingement from such?) other brain lesions? ideally we perform MRI brain & MRI c-spine/t-spine but too ill to safely put him in the MRI scanner for lengthy period of time treat the hepatic encephalopathy consider the MRIs down the line when more stable (9) History of fractured vertebra: Plan: lower c-spine and upper t-spine see discussion above in #8 (10) Acute hepatic encephalopathy: Plan: elevated ammonia in the 70s today cont lactulose - increase from BID to TID dosing cont rifaximin (11) Acidosis: Plan: 2nd to acute kidney injury etc. s/p bicarbonate infusion today but he has worsening 3rd spacing and respiratory status need to stop fluids this evening due to such need to return to HD?? defer that decision to nephrology (12) Hx of aortic valve replacement, mechanical: Plan: no longer on coumadin due to prior radiation proctitis, hematuria, and coagulopathy at HIGH RISK of clotting of the valve with subsequent embolic phenomenon, etc. 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 cbc am for stability (15) Hypothyroidism: Plan: TSH 5.5 earlier this admission but no changes in synthroid at this time (16) Hypotension: Plan: cirrhosis likely contributing - cont midodrine can't rule out adrenal insufficiency - cortisol level only 5, also having hypoglycemia place on dexamethasone 2mg IV BID which will not interfere with cosyntropin stim test assay will order latter for tomorrow am he is s/p albumin, IV fluids, PRBCs this admission all w/o sustained resolution of his hypotension Plan Depression with anxiety GERD- PPI updated pt's daughter Gloria at bedside this evening spent 30+ minutes discussing her father's current status, care plan, concerns for recovery, etc. very complex care coordination today spent about 80 min in total reviewing chart, discussing care with his daughter, multiple bedside visits, etc. Admission and Anticipated Discharge Date Admission Date: May 18, 2024 Results & Data Results & Data Vital Signs (Past 12 Hours) Vital Signs Temp Pulse Pulse Resp BP BP Pulse Ox 05/27/24 07:58 97.2 F L 83 18 93/57 L 95 05/27/24 07:12 83 05/27/24 04:07 97.3 F L 86 20 101/63 94 05/26/24 23:26 98.2 F 90 20 98/58 L 95 O2 Del Method 05/27/24 07:58 Room Air 05/27/24 07:12 05/27/24 04:07 Room Air 05/26/24 23:26 Room Air PG Care Time/CCT Total # of Minutes Spent Total Time Spent with Patient: Total time spent is greater than 50% in coordination of care (as documented) at patient's floor/unit and/or counseling patient: Coding Diagnoses Acute kidney injury N17.9 Acute metabolic encephalopathy G93.41 Urinary tract infection with hematuria N39.0; R31.9 Anemia in chronic kidney disease (CKD) N18.9; D63.1 CHF (congestive heart failure) I50.9 Diabetes mellitus, type 2 E11.9 Cirrhosis K74.60 Muscle tone increased M62.89 History of fractured vertebra Z87.81 Acute hepatic encephalopathy K76.82 Acidosis E87.20 Hx of aortic valve replacement, mechanical Z95.2 Hx of aortic aneurysm Z86.79 Pancytopenia D61.818 Hypothyroidism E03.9 Hypotension I95.9 Hypotension type: unspecified hypotension type (16) Hypotension Hypotension type: unspecified hypotension type Qualified Code(s): I95.9 - Hypotension, unspecified
[2024-05-27] MEDS: EPOETIN ALFA 10,000 UNITS/ML VIAL IV ONE (12:21)
[2024-05-27] MEDS: HEPARIN SOD (PORCINE) 1000 UNIT/ML IV ONE (12:21)
[2024-05-27 13:18] LABS: Hep B Surface Ag with confirm Negative (Negative)
[2024-05-27 13:27] LABS: Hepatitis B Surface Ab Quant 3.77 mIU/mL (>or=10mIU/mL Immune); Hepatitis B Surface Antibody Non-Immune
--- NOTE | 2024-05-27 20:18 | Hospitalist Progress Note ---
Date of Service May 27, 2024 Assessment & Plan (1) Acute kidney injury: Plan: Presented with Cr 2. Baseline Cr earlier this year <2. Cr 3.5 this am. Was hospitalized for nearly a month at [facility] this fall. Started on HD during that hospitalization. Does have right sided IJ permcath in place still. Per records had hepatorenal syndrome while in [facility]. Following his month-long stay at [place] was discharged to [facility]; stayed there for about 3 weeks. At some point either during his stay at [facility] or while at [facility] his HD was discontinued due to some renal recovery. He is volume overloaded on exam & radiographically, and has mild acidosis on labs (despite bicarb drip yesterday). I spoke with Dr Sparks this am - he will speak to family about ongoing HD vs not pursuing such. Even if HD is pursued again it may not improve his quality of life. Appreciate Dr Sparks's efforts. Cont marvin. BMP daily. (2) Acute metabolic encephalopathy: Plan: Likely multifactorial causes -- * elevated ammonia level in the 70s * toxic effects from seroquel & benzos (clonazepam) both of which were stopped on 05/22 * acidosis could be contributing * disruption of sleep-wake cycle likely contributing * can't rule out infectious causes Mental status IS improved today - perhaps due to dropping ammonia levels as he has had more stools today than yesterday * would obtain brain MRI next 1-2 days if he remains stable * cont lactulose & rifaximin * correct his acidosis with HD * consider diagnostic paracentesis to rule out SBP causing metabolic encephalop athy as he has worsening distension on exam (3) Urinary tract infection with hematuria: Plan: Known, underlying BPH He underwent Rezum procedure on December 05 had urethral stricture which was dilated on February 24, discharged with Marvin catheter Urologist Dr. Soto irrigated and repositioned his marvin catheter earlier this stay. Clots were evacuated. Hematuria resolved, did not require CBI At time of admission presumed to have had UTI, however urine culture from 05/15 with skin marco and urine and blood cultures from 05/18 were negative Was treated with cefepime then ceftriaxone 05/20-05/24 Cont marvin now and keep in at time of discharge Will need [facility] Urology f/u post-discharge His BPs have been low thus hold flomax (4) Anemia in chronic kidney disease (CKD): Plan: transfused 1u PRBCs 05/23 repeat CBC today with acceptable H/H repeat CBC in am (5) CHF (congestive heart failure): Plan: Chronic HFpEF has mechanical AVR but is no longer on chronic anticoagulation because of cirrhosis and problems with bleeding/coagulopathy Echo 02/29/2024 -- EF 50 to 55%, moderate dilation of RV, LA, RA, mechanical aortic valve in place, trace aortic regurgitation, severe tricuspid re gurgitation, diastolic dysfunction grade 3 Metoprolol & bumex both on hold due to low BP & VINICIUS He is volume overloaded - likely combination of cirrhosis, VINICIUS, +/- diastolic CHF HD will be used for volume control if family desires (6) Diabetes mellitus, type 2: Plan: Most recent A1c (02/19/2024) 5.1% Now with hypoglycemia - adrenal insufficiency? Hypoglycemia resolved since starting dexamethasone (7) Cirrhosis: Plan: With hepatic encephalopathy, coagulopathy INR 1.4, thrombocytopenia Cont lactulose/rifaximin Consider paracentesis - r/o SBP - in light of severely altered mental status Cont midodrine TID for low BP (8) Muscle tone increased: Plan: appears to have UMN signs on exam due to hepatic encephalopathy? due to spinal cord lesions? (does have h/o cervical spine & thoracic spine fractures - could he have cord impingement from such?) other brain lesions? ideally we perform MRI brain & MRI c-spine/t-spine - perhaps next 1-2 days if he remains stable treat the hepatic encephalopathy in meantime (9) Acute hepatic encephalopathy: Plan: elevated ammonia in the 70s yesterday cont lactulose at increased TID dosing cont rifaximin (10) Acidosis: Plan: 2nd to acute kidney injury (11) History of fractured vertebra: Plan: lower c-spine and upper t-spine see discussion above in #8 (12) Hx of aortic valve replacement, mechanical: Plan: no longer on coumadin due to prior radiation proctitis, hematuria, and coagulopathy at HIGH RISK of clotting of the valve with subsequent embolic phenomenon, etc. (13) Hx of aortic aneurysm: Plan: with h/o chronic Type A dissection s/p repair 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 cbc am today with ongoing pancytopenia but cell lines acceptable (15) Hypothyroidism: Plan: TSH 5.5 earlier this admission but no changes in synthroid at this time (16) Hypotension: Plan: cirrhosis likely contributing - cont midodrine secondary adrenal insufficiency also at play cont dexamethasone 2mg IV BID he is s/p albumin, IV fluids, PRBCs this admission all w/o sustained resolution of his hypotension (17) Adrenal insufficiency: Plan: cosyntropin stim test today -- did not pass did not stim to >18 baseline cortisol was low at 3 cont dexamethasone 2mg IV BID for now per daughter's report had steroids while in [place] critical illness etc all likely to blame Plan Depression with anxiety GERD- PPI updated pt's daughter Gloria & his at bedside today PT, OT when able obtain speech consult -- dysphagia noted by staff appreciate Dr Sparks's assistance Admission and Anticipated Discharge Date Admission Date: May 18, 2024 Subjective patient much more awake today but remains confused unable to tell me where he is - he initially said "[place], or maybe [place]" ([place]) did not know why he was here was not aware of his illnesses - said multiple times (laughingly) "I'm fine" /daughter at bedside they, too, agree he remains confused - much more so than when he was in [facility] earlier this fall denies headache denies chest pain denies dyspnea denies abd pain Review of Systems Review of Systems: Unobtainable due to cognitive status Physical Exam Physical Exam: gen - more awake/alert today but still quite confused; no tachypnea today mouth - MMM; no thrush ears - severe hearing impairment neck - mild JVD heart - RRR, s1 s2, no murmur; mechanical valve closure sound lungs - rales b/l bases; no tachypnea or increased work of breathing abd - distended (ascites presumed), BS+, NT, no HSM ext - pulses 2+ b/l feet, no edema neuro - still with significantly increased tone x 4 extremities especially both legs; +ankle clonus; hyper-reflexia b/l patellar reflexes; asterixis+ skin - pallor vascular - permcath right upper chest clean psych - oriented to person only Results & Data Results & Data Vital Signs (Past 12 Hours) Vital Signs Temp Pulse Pulse Pulse Resp BP BP 05/27/24 20:02 36.8 C 91 H 20 99/63 L 05/27/24 18:17 67 05/27/24 16:04 36.4 C L 88 18 05/27/24 15:40 05/27/24 13:18 36.4 C L 80 91/59 L 05/27/24 13:00 90 90/58 L 05/27/24 12:30 90 98/59 L 05/27/24 12:00 92 H 97/55 L 05/27/24 11:30 90 113/61 05/27/24 11:05 36.4 C L 89 05/27/24 10:54 BP Pulse Ox O2 Del Method 05/27/24 20:02 96 Room Air 05/27/24 18:17 05/27/24 16:04 95/62 L 97 Room Air 05/27/24 15:40 Room Air 05/27/24 13:18 05/27/24 13:00 05/27/24 12:30 05/27/24 12:00 05/27/24 11:30 05/27/24 11:05 05/27/24 10:54 Room Air Laboratory Results Laboratory Results - last 24 hr 05/26/24 05/26/24 05/26/24 17:05 21:04 Unknown WBC RBC Hgb Hct MCV MCH MCHC RDW Std Deviation RDW Coeff of Nick Plt Count MPV Sodium Potassium Chloride Carbon Dioxide Anion Gap BUN Creatinine Est Cr Clr Drug Dosing eGFR BUN/Creatinine Ratio Glucose POC Glucose 152 H Calcium Cortisol Response SARS-CoV-2 (PCR) NEGATIVE Hep Bs Antigen Negative Hep Bs Antibody Non-Immune Hep Bs Antibody, Quant 3.77 Hep B Core IgM Ab Pending Influenza Type A (PCR) Negative Influenza Type B (PCR) Negative RSV (RT-PCR) Negative 05/27/24 05/27/24 05/27/24 07:55 07:58 17:04 WBC 3.38 L RBC 2.62 L Hgb 8.5 L Hct 26.4 L MCV 100.8 H MCH 32.4 MCHC 32.2 RDW Std Deviation 73.8 H RDW Coeff of Nick 19.7 H Plt Count 101 L MPV 10.7 Sodium 144 Potassium 4.8 Chloride 114 H Carbon Dioxide 18 L Anion Gap 12 H BUN 63 H Creatinine 3.56 H Est Cr Clr Drug Dosing 17.1 eGFR 16.79 BUN/Creatinine Ratio 17.7 Glucose 139 H POC Glucose 144 H 104 H Calcium 8.9 Cortisol Response SARS-CoV-2 (PCR) Hep Bs Antigen Hep Bs Antibody Hep Bs Antibody, Quant Hep B Core IgM Ab Influenza Type A (PCR) Influenza Type B (PCR) RSV (RT-PCR) 05/27/24 20:15 WBC RBC Hgb Hct MCV MCH MCHC RDW Std Deviation RDW Coeff of Nick Plt Count MPV Sodium Potassium Chloride Carbon Dioxide Anion Gap BUN Creatinine Est Cr Clr Drug Dosing eGFR BUN/Creatinine Ratio Glucose POC Glucose 108 H Calcium Cortisol Response SARS-CoV-2 (PCR) Hep Bs Antigen Hep Bs Antibody Hep Bs Antibody, Quant Hep B Core IgM Ab Influenza Type A (PCR) Influenza Type B (PCR) RSV (RT-PCR) PG Care Time/CCT Total # of Minutes Spent Total Time Spent with Patient: Total time spent is greater than 50% in coordination of care (as documented) at patient's floor/unit and/or counseling patient: Coding Level of Care Code 18503 SUB INP/OBS CARE 350MIN Diagnoses Acute kidney injury N17.9 Acute metabolic encephalopathy G93.41 Urinary tract infection with hematuria N39.0; R31.9 Anemia in chronic kidney disease (CKD) N18.9; D63.1 CHF (congestive heart failure) I50.9 Diabetes mellitus, type 2 E11.9 Cirrhosis K74.60 Muscle tone increased M62.89 Acute hepatic encephalopathy K76.82 Acidosis E87.20 History of fractured vertebra Z87.81 Hx of aortic valve replacement, mechanical Z95.2 Hx of aortic aneurysm Z86.79 Pancytopenia D61.818 Hypothyroidism E03.9 Hypotension I95.9 Hypotension type: unspecified hypotension type Adrenal insufficiency E27.40 (16) Hypotension Hypotension type: unspecified hypotension type Qualified Code(s): I95.9 - Hypotension, unspecified
[2024-05-28 07:48] LABS: Hematocrit (blood only) 27.4 % (42.0-52.0); Hemoglobin 8.6 g/dl (14.0-18.0); Mean Corpuscular Hemoglobin 31.3 pg (25.0-34.0); Mean Corpuscular Hgb Conc 31.4 g/dL (32.0-36.0); Mean Corpuscular Volume 99.6 fL (80.0-100.0); Mean Platelet Volume 10.9 fL (9.4-12.4); Platelet Count 133 K/uL (130-400); RDW Coefficient of Variation 19.9 % (11.5-14.5); RDW Standard Deviation 72.1 fL (36.4-46.3); Red Blood Count 2.75 M/uL (4.70-6.10); White Blood Count 6.81 K/ul (4.8-10.8)
[2024-05-28 08:06] LABS: Calcium 9.3 mg/dl (8.6-10.3); Potassium 4.8 mmol/L (3.5-5.1)
[2024-05-28 08:11] LABS: BUN Creatinine Ratio 14.5 (10-20)
--- NOTE | 2024-05-28 08:35 | Nephrology Progress Note ---
Date of Service May 28, 2024 Assessment & Plan (1) Acute kidney injury: Plan: * Oliguric VINICIUS likely related to anemia and relative hypotension. Urine sediment is difficult to assess due to Duran catheter placement and gross hematuria. Renal US was negative for hydronephrosis. Patient has not received IV contrast or been exposed to any known nephrotoxic agents. Clinically doubt HRS as Carie > 10 * Patient was transfused 1 unit PRBC 05/23/24 * Patient remains in injury phase. UO was only 200 cc last 24 hours * HD provided 05/27/24 for 1 L UF * Continue midodrine 10 mg TID for BP support * Patient likely will remain HD dependent (2nd recent hospitalization requiring HD) * Discussed outpatient HD w/ patient's family yesterday. They are uncertain whether he would want this and plan to discuss this with him. Recommend consultation w/ palliative care to discuss prognosis and goals of care w/ family. Patient will likely remain HD dependent and may require [facility] care * Will reassess for HD in am (2) Chronic kidney disease: Plan: * Baseline creatinine 2.0 (3) Cirrhosis: Plan: * Albumin improved to 3.6 following IV SPA * 05/18/[address] without IV contrast revealed moderate right and small volume left pleural effusions. Only a small volume of ascites/anasarca. No hydronephrosis (4) Anemia: Plan: * Transfusion to maintain Hgb > 8.0 (5) Chronic anticoagulation: (6) Hx of aortic valve replacement, mechanical: (7) Delirium: Admission and Anticipated Discharge Date Admission Date: May 18, 2024 Subjective Mr. Jarquin was evaluated in his hospital room this morning. He was alert but not oriented. He denied dyspnea or angina. He voiced no medical concerns. Mr. Jarquin was dialyzed 05/27/24 for 1 L UF. He was laying flat in bed breathing comfortably on RA this am Review of Systems Constitutional: no fever Eyes: no problem reported Ear, Nose, Mouth, Throat: no problem reported Respiratory: no dyspnea Cardiovascular: no chest pain Gastrointestinal: no abdominal pain, no nausea, no vomiting and no diarrhea/loose stools Physical Exam Constitutional: not in distress Eyes: PERRL, conjunctivae normal, anicteric sclerae ENMT: external ear and nose normal, oropharynx normal Neck: trachea midline, no thyromegaly Respiratory: normal respiratory effort, lungs clear to auscultation Cardiovascular: RRR, no murmur, no edema Gastrointestinal (Abdomen): normal bowel sounds, soft, nontender, no hepatosplenomegaly Musculoskeletal: Extremities: no cyanosis and no clubbing Skin: no rashes, warm and dry Neurologic: awake; not confused Results & Data Vital Signs (Past 12 Hours) Vital Signs Temp Pulse Pulse Resp BP BP Pulse Ox 05/28/24 08:13 36.8 C 88 16 111/68 95 05/28/24 05:55 94 H 05/28/24 03:00 36.5 C 93 H 16 95/59 L 95 05/27/24 22:53 36.6 C 96 H 16 96/64 L 95 05/27/24 21:45 89 O2 Del Method 05/28/24 08:13 Room Air 05/28/24 05:55 05/28/24 03:00 Room Air 05/27/24 22:53 Room Air 05/27/24 21:45 Laboratory Results Laboratory Results - last 24 hr 05/26/24 05/27/24 05/27/24 17:05 07:58 17:04 WBC RBC Hgb Hct MCV MCH MCHC RDW Std Deviation RDW Coeff of Nick Plt Count MPV Sodium 144 Potassium 4.8 Chloride 114 H Carbon Dioxide 18 L Anion Gap 12 H BUN 63 H Creatinine 3.56 H Est Cr Clr Drug Dosing 17.1 eGFR 16.79 BUN/Creatinine Ratio 17.7 Glucose 139 H POC Glucose 104 H Calcium 8.9 Cortisol Response Hep Bs Antigen Negative Hep Bs Antibody Non-Immune Hep Bs Antibody, Quant 3.77 Hep B Core IgM Ab Pending 05/27/24 05/28/24 05/28/24 20:15 07:01 08:08 WBC 6.81 RBC 2.75 L Hgb 8.6 L Hct 27.4 L MCV 99.6 MCH 31.3 MCHC 31.4 L RDW Std Deviation 72.1 H RDW Coeff of Nick 19.9 H Plt Count 133 MPV 10.9 Sodium 145 Potassium 4.8 Chloride 112 H Carbon Dioxide 16 L Anion Gap 17 H BUN 49 H Creatinine 3.38 H Est Cr Clr Drug Dosing 18.0 eGFR 17.87 BUN/Creatinine Ratio 14.5 Glucose 81 POC Glucose 108 H 92 Calcium 9.3 Cortisol Response Hep Bs Antigen Hep Bs Antibody Hep Bs Antibody, Quant Hep B Core IgM Ab PG Care Time/CCT Total # of Minutes Spent Total Time Spent with Patient: Total time spent is greater than 50% in coordination of care (as documented) at patient's floor/unit and/or counseling patient: Coding Level of Care Code 84764 SUB INP/OBS CARE 3/50MIN Diagnoses Acute kidney injury N17.9 Chronic kidney disease N18.9 Cirrhosis K74.60 Anemia D64.9 Anemia type: unspecified type Chronic anticoagulation Z79.01 Hx of aortic valve replacement, mechanical Z95.2 Delirium R41.0 (4) Anemia Anemia type: unspecified type Qualified Code(s): D64.9 - Anemia, unspecified
[2024-05-28] MEDS: LACTULOSE SYRUP 30 GM/45 ML UDP PO SCH (09:01)
--- NOTE | 2024-05-28 09:51 | Palliative Care Consultation ---
Date of Consultation May 28, 2024 Assessment & Plan (1) Altered mental status: pt is not decisionally intact (2) Generalized weakness: (3) Discussion about advance care planning held with family member: will cont attemps to reach family (4) Palliative care by specialist: Plan as above Thank you for allowing us to participate in the ongoing care of this patient. Please page with any additional concerns. Nikole Jimenes DNP Director, Palliative Medicine History of Present Illness Reason for Consultation: cirrhosis, VINICIUS on dialysis, FTT, etc Attending Physician: Nathaniel Cooper MD History of Present Illness Maicol is a 79yo male with acute metab encephalopathy which is believed to be multifactorial - elevated ammonia, side effect from seroquel + benzos (stopped 05/22), sleep cycle disruption, ?infection/poss UTI tx with ceftriaxone 05/20 to 05/24 PMH incl HFpEF, +mech AV; anemia of CKD, DM, cirrhosis due to CALERO,lower c psine and upper t spine fractured vertebrae, Ao Aneurysm 2018 (chronic Type A dissection s/p repair [facility]); depression/anxiety Echo 02/29/2024 -- EF 50 to 55%, moderate dilation of RV, LA, RA, mechanical aortic valve in place, trace aortic regurgitation, severe tricuspid regurgitation, diastolic dysfunction grade 3 +dysphagia Was hospitalized for nearly a month at [facility] this fall. Started on HD during that hospitalization. Does have right sided IJ permcath in place still. Per records had hepatorenal syndrome while in [facility]. Following his month-long stay at [facility] was discharged to [facility]; stayed there for about 3 weeks. At some point either during his stay at [facility] or while at [facility] his HD was discontinued due to some renal recovery. He is volume overloaded on exam & radiographically, and has mild acidosis on labs (despite bicarb drip yesterday). Maicol was seen and examined today. He is in bed, unable to answer questions, confused at baseline but a bit more awake that reported in chart the past few days Allergies Allergy/AdvReac Type Severity Reaction Status Date / Time plasma protein fraction Allergy Severe FROZEN Verified 05/18/24 19:42 PLASMA-- DEVELOPED HIVES Home Medications Medication Instructions Recorded Confirmed Type cholecalciferol (vitamin D3) 50 50 mcg PO QPM 10/07/22 05/18/24 History mcg (2,000 unit) capsule clonazepam 0.5 mg tablet 0.5 mg PO DAILY PRN Anxiety 10/07/22 05/18/24 History hydrocortisone acetate 1 % topical 1 applic topical BID PRN Skin 10/07/2206/29 History cream Irritation sertraline 100 mg tablet 100 mg PO HS 11/25/22 05/18/24 History tamsulosin 0.4 mg capsule 0.8 mg PO QPM 11/25/22 05/18/24 History cyanocobalamin (vitamin B-12) 1,000 mcg PO DAILY 08/31/23 05/18/24 History 1,000 mcg tablet (Vitamin B-12) levothyroxine 75 mcg tablet 75 mcg PO QAM 08/31/23 05/18/24 History (Synthroid) lactulose 10 gram/15 mL oral syrup 30 g PO BID 01/22/24 05/18/24 History ondansetron 4 mg disintegrating 4 mg PO Q6H PRN Nausea And Vomiting 02/28/24 05/18/24 History tablet bumetanide 1 mg tablet 1 mg PO .3X WEEK 05/15/24 05/18/24 History cefdinir 300 mg capsule 300 mg PO BID #14 caps 05/15/24 05/18/24 Rx hydroxyzine HCl 10 mg tablet 10 mg PO BID PRN Itching 05/15/24 05/18/24 History lansoprazole 30 mg capsule,delayed 30 mg PO BID 05/15/24 05/18/24 History release quetiapine 25 mg tablet 25 mg PO QAM 05/15/24 05/18/24 History quetiapine 50 mg tablet 50 mg PO HS 05/15/24 05/18/24 History metoprolol tartrate 25 mg tablet 25 mg PO BID 05/18/24 05/18/24 History rifaximin 550 mg tablet (Xifaxan) 550 mg PO BID 05/18/24 05/18/24 History Patient History Medical History Non-ST elevated myocardial infarction (non-STEMI) Acute kidney injury superimposed on CKD Gross hematuria Chronic kidney disease Hypothyroidism Hx of aortic aneurysm ascending aortic aneurysm s/p dissection 05/2019 and subsequent repair of aortic root (28mm Gelweave graft) Failure to thrive in adult admission [facility] 08/31/23-09/12/23. pt's states that he has improved slightly since d/c (he has also since had an admission to [facility] since that time per ; unknown dx) Thrombocytopenia Prostate CA XRT 2020; Rezum 12/05/22 Dementia pt had significant confusion during 09/[address] [facility]; states that he is 'much better' at home. she also notes increased confusion after General Anesthesia GERD (gastroesophageal reflux disease) Portal hypertension Diabetes type 2, controlled metformin d/c during [facility] admission 2/2 hypoglycemia (pt has been having GI issues and has not been eating normal diet) Cirrhosis follows with GI Anemia pt's reports ongoing rectal bleeding (GI is aware) since XRT for prostate Ca; pt takes iron supplement; recent iron infusions and procrit injections (02/12/24 and will have another on 02/19/24) Generalized weakness uses cane to ambulate Urinary tract infection recurrent; follows with urology Nausea & vomiting current sx; following with GI CHF (congestive heart failure) follows with [facility] Osteoarthritis Anxiety Hypertension meds reduced during 09/[address]23 [facility] admission 2/2 hypotension Suspected sleep apnea unaware History of COVID-19 x2 ; 10/2022 most recent (pt was asymptomatic); no ongoing sx History of fractured vertebra Cervical fracture 11/18/21- medical management recommended, follows with physical therapy, "full ROM" per patient Surgical History History of endoscopy capsule endoscopy History of flexible sigmoidoscopy History of colonoscopy History of cholecystectomy History of appendectomy History of prostate surgery multiple; most recent Rezu 12/05/22: MAC without issue History of aortic aneurysm repair 05/2021 in [facility] Follows with [facility] Family History Mother Diabetes Hypertension Father Diabetes Other No family history of adverse response to anesthesia Social History Smoking Status: Never smoker Second Hand Exposure: No; Do You Dip or Chew Tobacco: No; Hx Alcohol Use: No Hx Substance Use: No Preferred Language: Indonesian Communication Ability: Impaired Pattern Grader Required: No Beliefs That Will Affect Care: None marital status: Current Living Situation: Spouse current occupational status: retired Other Information That Helps Us Care for You: No Feels Safe at Home: Yes Safety Concerns: Feels Safe At This Time Assistive Devices: Walker and Wheelchair Review of Systems Review of Systems: Unobtainable due to cognitive status (he is very confused) Physical Exam Physical Exam: elderly male resting in bed, no acute distress noted he is alert to self intermittently but otherwise is overall confused chronically ill appearing unable to follow commands limited verbal interactions, answers are consistently inconsistent neck supple, no stridor resp at rest WAL, breath sounds diminished with scatt rales, left chest port intact s1s2, irreg at times abd soft, BS+ gen weakness skin pale, scatt ecchymoses confused Results & Data Vital Signs (Past 12 Hours) Vital Signs Temp Pulse Pulse Resp BP BP Pulse Ox 05/28/24 09:25 05/28/24 08:13 36.8 C 88 16 111/68 95 05/28/24 05:55 94 H 05/28/24 03:00 36.5 C 93 H 16 95/59 L 95 05/27/24 22:53 36.6 C 96 H 16 96/64 L 95 05/27/24 21:45 89 O2 Del Method 05/28/24 09:25 Room Air 05/28/24 08:13 Room Air 05/28/24 05:55 05/28/24 03:00 Room Air 05/27/24 22:53 Room Air 05/27/24 21:45 Laboratory Results 05/28/24 05/28/24 05/27/24 Range/Units 08:08 07:01 20:15 WBC 6.81 (4.8-10.8) K/ul RBC 2.75 L (4.70-6.10) M/uL Hgb 8.6 L (14.0-18.0) g/dl Hct 27.4 L (42.0-52.0) % MCV 99.6 (80.0-100.0) fL MCH 31.3 (25.0-34.0) pg MCHC 31.4 L (32.0-36.0) g/dL RDW Std Deviation 72.1 H (36.4-46.3) fL RDW Coeff of Nick 19.9 H (11.5-14.5) % Plt Count 133 (130-400) K/uL MPV 10.9 (9.4-12.4) fL PT (9.0-12.0) Seconds INR (0.9-1.1) VBG pH (7.36-7.41) VBG pCO2 (38-50) mmHg VBG pO2 mmHg VBG HCO3 mmol/L VBG O2 Saturation % VBG Base Excess mEq/L Sodium 145 (136-145) mmol/L Potassium 4.8 (3.5-5.1) mmol/L Chloride 112 H (98-107) mmol/L Carbon Dioxide 16 L (21-32) mmol/L Anion Gap 17 H (3-11) BUN 49 H (6-23) mg/dl Creatinine 3.38 H (0.6-1.4) mg/dl Est Cr Clr Drug Dosing 18.0 ml/min eGFR 17.87 BUN/Creatinine Ratio 14.5 (10-20) Glucose 81 (70-99(Fasting)) mg/dl POC Glucose 92 108 H (70-99) mg/dl Calcium 9.3 (8.6-10.3) mg/dl Total Bilirubin (0.2-1.0) mg/dl AST (13-39) U/L ALT (7-52) U/L Alkaline Phosphatase (34-104) U/L Ammonia (18-72) umol/L Total Protein (6.0-8.3) gm/dl Albumin (3.4-5.0) gm/dl Globulin (2.5-4.0) gm/dl Albumin/Globulin Ratio (0.9-2) Folate (>5.38) ng/ml TSH (0.300-4.500) uIu/ml Random Cortisol mcg/dl Cortisol Response mcg/dl Urine Color Urine Appearance (Clear) Urine pH (4.5-7.5) Ur Specific [place] (1.000-1.030) Urine Protein (Negative) Urine Glucose (UA) (Negative) Urine Ketones (Negative) Urine Blood (Negative) Urine Nitrite (Negative) Urine Bilirubin (Negative) Urine Urobilinogen (Negative) Ur Leukocyte Esterase (Negative) Urine WBC (Auto) (0-5) /hpf Urine RBC (Auto) (0-2) /hpf U Hyaline Cast (Auto) (0-2) /lpf U Epithel Cells (Auto) (0-2) /hpf Urine Bacteria (Auto) (None Seen) Hyaline Casts (None Presnt) /lpf Ur Random Creatinine mg/dl Ur Random Sodium mmol/L SARS-CoV-2 (PCR) (Negative) Hep Bs Antigen (Negative) Hep Bs Antibody Hep Bs Antibody, Quant (>or=10mIU/mL Immune) mIU/mL Hep B Core IgM Ab Influenza Type A (PCR) (Neg) Influenza Type B (PCR) (Neg) RSV (RT-PCR) (Neg) Blood Type Antibody Screen Crossmatch 05/27/24 05/27/24 05/27/24 Range/Units 17:04 07:58 07:55 WBC 3.38 L (4.8-10.8) K/ul RBC 2.62 L (4.70-6.10) M/uL Hgb 8.5 L (14.0-18.0) g/dl Hct 26.4 L (42.0-52.0) % MCV 100.8 H (80.0-100.0) fL MCH 32.4 (25.0-34.0) pg MCHC 32.2 (32.0-36.0) g/dL RDW Std Deviation 73.8 H (36.4-46.3) fL RDW Coeff of Nick 19.7 H (11.5-14.5) % Plt Count 101 L (130-400) K/uL MPV 10.7 (9.4-12.4) fL PT (9.0-12.0) Seconds INR (0.9-1.1) VBG pH (7.36-7.41) VBG pCO2 (38-50) mmHg VBG pO2 mmHg VBG HCO3 mmol/L VBG O2 Saturation % VBG Base Excess mEq/L Sodium 144 (136-145) mmol/L Potassium 4.8 (3.5-5.1) mmol/L Chloride 114 H (98-107) mmol/L Carbon Dioxide 18 L (21-32) mmol/L Anion Gap 12 H (3-11) BUN 63 H (6-23) mg/dl Creatinine 3.56 H (0.6-1.4) mg/dl Est Cr Clr Drug Dosing 17.1 ml/min eGFR 16.79 BUN/Creatinine Ratio 17.7 (10-20) Glucose 139 H (70-99(Fasting)) mg/dl POC Glucose 104 H 144 H (70-99) mg/dl Calcium 8.9 (8.6-10.3) mg/dl Total Bilirubin (0.2-1.0) mg/dl AST (13-39) U/L ALT (7-52) U/L Alkaline Phosphatase (34-104) U/L Ammonia (18-72) umol/L Total Protein (6.0-8.3) gm/dl Albumin (3.4-5.0) gm/dl Globulin (2.5-4.0) gm/dl Albumin/Globulin Ratio (0.9-2) Folate (>5.38) ng/ml TSH (0.300-4.500) uIu/ml Random Cortisol mcg/dl Cortisol Response mcg/dl Urine Color Urine Appearance (Clear) Urine pH (4.5-7.5) Ur Specific [place] (1.000-1.030) Urine Protein (Negative) Urine Glucose (UA) (Negative) Urine Ketones (Negative) Urine Blood (Negative) Urine Nitrite (Negative) Urine Bilirubin (Negative) Urine Urobilinogen (Negative) Ur Leukocyte Esterase (Negative) Urine WBC (Auto) (0-5) /hpf Urine RBC (Auto) (0-2) /hpf U Hyaline Cast (Auto) (0-2) /lpf U Epithel Cells (Auto) (0-2) /hpf Urine Bacteria (Auto) (None Seen) Hyaline Casts (None Presnt) /lpf Ur Random Creatinine mg/dl Ur Random Sodium mmol/L SARS-CoV-2 (PCR) (Negative) Hep Bs Antigen (Negative) Hep Bs Antibody Hep Bs Antibody, Quant (>or=10mIU/mL Immune) mIU/mL Hep B Core IgM Ab Influenza Type A (PCR) (Neg) Influenza Type B (PCR) (Neg) RSV (RT-PCR) (Neg) Blood Type Antibody Screen Crossmatch 05/26/24 05/26/24 05/26/24 Range/Units Unknown 21:04 17:05 WBC (4.8-10.8) K/ul RBC (4.70-6.10) M/uL Hgb (14.0-18.0) g/dl Hct (42.0-52.0) % MCV (80.0-100.0) fL MCH (25.0-34.0) pg MCHC (32.0-36.0) g/dL RDW Std Deviation (36.4-46.3) fL RDW Coeff of Nick (11.5-14.5) % Plt Count (130-400) K/uL MPV (9.4-12.4) fL PT (9.0-12.0) Seconds INR (0.9-1.1) VBG pH (7.36-7.41) VBG pCO2 (38-50) mmHg VBG pO2 mmHg VBG HCO3 mmol/L VBG O2 Saturation % VBG Base Excess mEq/L Sodium (136-145) mmol/L Potassium (3.5-5.1) mmol/L Chloride (98-107) mmol/L Carbon Dioxide (21-32) mmol/L Anion Gap (3-11) BUN (6-23) mg/dl Creatinine (0.6-1.4) mg/dl Est Cr Clr Drug Dosing ml/min eGFR BUN/Creatinine Ratio (10-20) Glucose (70-99(Fasting)) mg/dl POC Glucose 152 H (70-99) mg/dl Calcium (8.6-10.3) mg/dl Total Bilirubin (0.2-1.0) mg/dl AST (13-39) U/L ALT (7-52) U/L Alkaline Phosphatase (34-104) U/L Ammonia (18-72) umol/L Total Protein (6.0-8.3) gm/dl Albumin (3.4-5.0) gm/dl Globulin (2.5-4.0) gm/dl Albumin/Globulin Ratio (0.9-2) Folate (>5.38) ng/ml TSH (0.300-4.500) uIu/ml Random Cortisol mcg/dl Cortisol Response mcg/dl Urine Color Urine Appearance (Clear) Urine pH (4.5-7.5) Ur Specific [place] (1.000-1.030) Urine Protein (Negative) Urine Glucose (UA) (Negative) Urine Ketones (Negative) Urine Blood (Negative) Urine Nitrite (Negative) Urine Bilirubin (Negative) Urine Urobilinogen (Negative) Ur Leukocyte Esterase (Negative) Urine WBC (Auto) (0-5) /hpf Urine RBC (Auto) (0-2) /hpf U Hyaline Cast (Auto) (0-2) /lpf U Epithel Cells (Auto) (0-2) /hpf Urine Bacteria (Auto) (None Seen) Hyaline Casts (None Presnt) /lpf Ur Random Creatinine mg/dl Ur Random Sodium mmol/L SARS-CoV-2 (PCR) NEGATIVE (Negative) Hep Bs Antigen Negative (Negative) Hep Bs Antibody Non-Immune Hep Bs Antibody, Quant 3.77 (>or=10mIU/mL Immune) mIU/mL Hep B Core IgM Ab Pending Influenza Type A (PCR) Negative (Neg) Influenza Type B (PCR) Negative (Neg) RSV (RT-PCR) Negative (Neg) Blood Type Antibody Screen Crossmatch 05/26/24 05/26/24 05/26/24 Range/Units 16:57 16:54 10:50 WBC (4.8-10.8) K/ul RBC (4.70-6.10) M/uL Hgb (14.0-18.0) g/dl Hct (42.0-52.0) % MCV (80.0-100.0) fL MCH (25.0-34.0) pg MCHC (32.0-36.0) g/dL RDW Std Deviation (36.4-46.3) fL RDW Coeff of Nick (11.5-14.5) % Plt Count (130-400) K/uL MPV (9.4-12.4) fL PT (9.0-12.0) Seconds INR (0.9-1.1) VBG pH 7.35 L (7.36-7.41) VBG pCO2 30 L (38-50) mmHg VBG pO2 40 mmHg VBG HCO3 17 mmol/L VBG O2 Saturation 68.2 % VBG Base Excess -7.7 mEq/L Sodium 146 H (136-145) mmol/L Potassium 4.2 (3.5-5.1) mmol/L Chloride 117 H (98-107) mmol/L Carbon Dioxide 18 L (21-32) mmol/L Anion Gap 11 (3-11) BUN 59 H (6-23) mg/dl Creatinine 3.57 H (0.6-1.4) mg/dl Est Cr Clr Drug Dosing 17.1 ml/min eGFR 16.73 BUN/Creatinine Ratio 16.5 (10-20) Glucose 115 H (70-99(Fasting)) mg/dl POC Glucose 122 H 76 (70-99) mg/dl Calcium 9.0 (8.6-10.3) mg/dl Total Bilirubin (0.2-1.0) mg/dl AST (13-39) U/L ALT (7-52) U/L Alkaline Phosphatase (34-104) U/L Ammonia 76.0 H (18-72) umol/L Total Protein (6.0-8.3) gm/dl Albumin (3.4-5.0) gm/dl Globulin (2.5-4.0) gm/dl Albumin/Globulin Ratio (0.9-2) Folate 8.75 (>5.38) ng/ml TSH (0.300-4.500) uIu/ml Random Cortisol mcg/dl Cortisol Response mcg/dl Urine Color Urine Appearance (Clear) Urine pH (4.5-7.5) Ur Specific [place] (1.000-1.030) Urine Protein (Negative) Urine Glucose (UA) (Negative) Urine Ketones (Negative) Urine Blood (Negative) Urine Nitrite (Negative) Urine Bilirubin (Negative) Urine Urobilinogen (Negative) Ur Leukocyte Esterase (Negative) Urine WBC (Auto) (0-5) /hpf Urine RBC (Auto) (0-2) /hpf U Hyaline Cast (Auto) (0-2) /lpf U Epithel Cells (Auto) (0-2) /hpf Urine Bacteria (Auto) (None Seen) Hyaline Casts (None Presnt) /lpf Ur Random Creatinine mg/dl Ur Random Sodium mmol/L SARS-CoV-2 (PCR) (Negative) Hep Bs Antigen (Negative) Hep Bs Antibody Hep Bs Antibody, Quant (>or=10mIU/mL Immune) mIU/mL Hep B Core IgM Ab Influenza Type A (PCR) (Neg) Influenza Type B (PCR) (Neg) RSV (RT-PCR) (Neg) Blood Type Antibody Screen Crossmatch 05/26/24 05/25/24 05/24/24 Range/Units 07:32 07:04 07:47 WBC 3.55 L 3.96 L (4.8-10.8) K/ul RBC 2.62 L 2.61 L (4.70-6.10) M/uL Hgb 8.4 L 8.1 L (14.0-18.0) g/dl Hct 26.4 L 26.0 L (42.0-52.0) % MCV 100.8 H 99.6 (80.0-100.0) fL MCH 32.1 31.0 (25.0-34.0) pg MCHC 31.8 L 31.2 L (32.0-36.0) g/dL RDW Std Deviation 73.0 H 74.4 H (36.4-46.3) fL RDW Coeff of Nick 19.9 H 20.2 H (11.5-14.5) % Plt Count 104 L 108 L (130-400) K/uL MPV 10.7 10.8 (9.4-12.4) fL PT (9.0-12.0) Seconds INR (0.9-1.1) VBG pH (7.36-7.41) VBG pCO2 (38-50) mmHg VBG pO2 mmHg VBG HCO3 mmol/L VBG O2 Saturation % VBG Base Excess mEq/L Sodium 147 H 141 142 (136-145) mmol/L Potassium 4.2 4.1 4.4 (3.5-5.1) mmol/L Chloride 117 H 111 H 112 H (98-107) mmol/L Carbon Dioxide 15 L 19 L 21 (21-32) mmol/L Anion Gap 15 H 11 9 (3-11) BUN 57 H 57 H 56 H (6-23) mg/dl Creatinine 3.29 H 3.14 H 3.25 H (0.6-1.4) mg/dl Est Cr Clr Drug Dosing 18.5 19.4 20.3 ml/min eGFR 18.45 19.52 18.73 BUN/Creatinine Ratio 17.3 18.2 17.2 (10-20) Glucose 65 L 70 80 (70-99(Fasting)) mg/dl POC Glucose (70-99) mg/dl Calcium 9.3 8.7 8.7 (8.6-10.3) mg/dl Total Bilirubin 1.4 H 1.0 1.1 H (0.2-1.0) mg/dl AST 48 H 36 35 (13-39) U/L ALT 14 13 14 (7-52) U/L Alkaline Phosphatase 78 83 91 (34-104) U/L Ammonia (18-72) umol/L Total Protein 6.2 5.7 L 6.1 (6.0-8.3) gm/dl Albumin 3.6 3.2 L 3.4 (3.4-5.0) gm/dl Globulin 2.6 2.5 2.7 (2.5-4.0) gm/dl Albumin/Globulin Ratio 1.4 1.3 1.3 (0.9-2) Folate (>5.38) ng/ml TSH (0.300-4.500) uIu/ml Random Cortisol 5.72 mcg/dl Cortisol Response mcg/dl Urine Color Urine Appearance (Clear) Urine pH (4.5-7.5) Ur Specific [place] (1.000-1.030) Urine Protein (Negative) Urine Glucose (UA) (Negative) Urine Ketones (Negative) Urine Blood (Negative) Urine Nitrite (Negative) Urine Bilirubin (Negative) Urine Urobilinogen (Negative) Ur Leukocyte Esterase (Negative) Urine WBC (Auto) (0-5) /hpf Urine RBC (Auto) (0-2) /hpf U Hyaline Cast (Auto) (0-2) /lpf U Epithel Cells (Auto) (0-2) /hpf Urine Bacteria (Auto) (None Seen) Hyaline Casts (None Presnt) /lpf Ur Random Creatinine mg/dl Ur Random Sodium mmol/L SARS-CoV-2 (PCR) (Negative) Hep Bs Antigen (Negative) Hep Bs Antibody Hep Bs Antibody, Quant (>or=10mIU/mL Immune) mIU/mL Hep B Core IgM Ab Influenza Type A (PCR) (Neg) Influenza Type B (PCR) (Neg) RSV (RT-PCR) (Neg) Blood Type Antibody Screen Crossmatch 05/23/24 05/23/24 05/23/24 Range/Units 12:40 08:15 05:32 WBC 3.89 L (4.8-10.8) K/ul RBC 2.26 L (4.70-6.10) M/uL Hgb 7.2 L (14.0-18.0) g/dl Hct 23.4 L (42.0-52.0) % MCV 103.5 H (80.0-100.0) fL MCH 31.9 (25.0-34.0) pg MCHC 30.8 L (32.0-36.0) g/dL RDW Std Deviation 67.7 H (36.4-46.3) fL RDW Coeff of Nick 18.0 H (11.5-14.5) % Plt Count 101 L (130-400) K/uL MPV 10.7 (9.4-12.4) fL PT (9.0-12.0) Seconds INR (0.9-1.1) VBG pH (7.36-7.41) VBG pCO2 (38-50) mmHg VBG pO2 mmHg VBG HCO3 mmol/L VBG O2 Saturation % VBG Base Excess mEq/L Sodium 142 (136-145) mmol/L Potassium 4.5 (3.5-5.1) mmol/L Chloride 112 H (98-107) mmol/L Carbon Dioxide 20 L (21-32) mmol/L Anion Gap 10 (3-11) BUN 54 H (6-23) mg/dl Creatinine 3.02 H (0.6-1.4) mg/dl Est Cr Clr Drug Dosing 20.2 ml/min eGFR 20.45 BUN/Creatinine Ratio 17.9 (10-20) Glucose 81 (70-99(Fasting)) mg/dl POC Glucose (70-99) mg/dl Calcium 8.5 L (8.6-10.3) mg/dl Total Bilirubin (0.2-1.0) mg/dl AST (13-39) U/L ALT (7-52) U/L Alkaline Phosphatase (34-104) U/L Ammonia (18-72) umol/L Total Protein (6.0-8.3) gm/dl Albumin (3.4-5.0) gm/dl Globulin (2.5-4.0) gm/dl Albumin/Globulin Ratio (0.9-2) Folate (>5.38) ng/ml TSH 5.513 H (0.300-4.500) uIu/ml Random Cortisol mcg/dl Cortisol Response mcg/dl Urine Color Yellow Urine Appearance Turbid A (Clear) Urine pH 5.0 (4.5-7.5) Ur Specific [place] 1.012 (1.000-1.030) Urine Protein 3+ H (Negative) Urine Glucose (UA) Negative (Negative) Urine Ketones Negative (Negative) Urine Blood 3+ H (Negative) Urine Nitrite Negative (Negative) Urine Bilirubin Negative (Negative) Urine Urobilinogen Negative (Negative) Ur Leukocyte Esterase 3+ H (Negative) Urine WBC (Auto) >50 H (0-5) /hpf Urine RBC (Auto) 11-20 H (0-2) /hpf U Hyaline Cast (Auto) >20 H (0-2) /lpf U Epithel Cells (Auto) 3-5 H (0-2) /hpf Urine Bacteria (Auto) 4+ H (None Seen) Hyaline Casts Present A (None Presnt) /lpf Ur Random Creatinine 69.4 mg/dl Ur Random Sodium 92 mmol/L SARS-CoV-2 (PCR) (Negative) Hep Bs Antigen (Negative) Hep Bs Antibody Hep Bs Antibody, Quant (>or=10mIU/mL Immune) mIU/mL Hep B Core IgM Ab Influenza Type A (PCR) (Neg) Influenza Type B (PCR) (Neg) RSV (RT-PCR) (Neg) Blood Type O Negative Antibody Screen NEGATIVE Crossmatch See Detail 05/22/24 05/22/24 Range/Units 11:52 06:59 WBC 4.04 L (4.8-10.8) K/ul RBC 2.34 L (4.70-6.10) M/uL Hgb 7.4 L (14.0-18.0) g/dl Hct 23.6 L (42.0-52.0) % MCV 100.9 H (80.0-100.0) fL MCH 31.6 (25.0-34.0) pg MCHC 31.4 L (32.0-36.0) g/dL RDW Std Deviation 66.0 H (36.4-46.3) fL RDW Coeff of Nick 17.9 H (11.5-14.5) % Plt Count 110 L (130-400) K/uL MPV 10.8 (9.4-12.4) fL PT 14.9 H (9.0-12.0) Seconds INR 1.4 H (0.9-1.1) VBG pH (7.36-7.41) VBG pCO2 (38-50) mmHg VBG pO2 mmHg VBG HCO3 mmol/L VBG O2 Saturation % VBG Base Excess mEq/L Sodium 141 (136-145) mmol/L Potassium 4.2 (3.5-5.1) mmol/L Chloride 113 H (98-107) mmol/L Carbon Dioxide 20 L (21-32) mmol/L Anion Gap 8 (3-11) BUN 50 H (6-23) mg/dl Creatinine 2.75 H (0.6-1.4) mg/dl Est Cr Clr Drug Dosing 22.1 ml/min eGFR 22.88 BUN/Creatinine Ratio 18.2 (10-20) Glucose 80 (70-99(Fasting)) mg/dl POC Glucose (70-99) mg/dl Calcium 8.2 L (8.6-10.3) mg/dl Total Bilirubin (0.2-1.0) mg/dl AST (13-39) U/L ALT (7-52) U/L Alkaline Phosphatase (34-104) U/L Ammonia 32.0 (18-72) umol/L Total Protein (6.0-8.3) gm/dl Albumin (3.4-5.0) gm/dl Globulin (2.5-4.0) gm/dl Albumin/Globulin Ratio (0.9-2) Folate (>5.38) ng/ml TSH (0.300-4.500) uIu/ml Random Cortisol mcg/dl Cortisol Response mcg/dl Urine Color Urine Appearance (Clear) Urine pH (4.5-7.5) Ur Specific [place] (1.000-1.030) Urine Protein (Negative) Urine Glucose (UA) (Negative) Urine Ketones (Negative) Urine Blood (Negative) Urine Nitrite (Negative) Urine Bilirubin (Negative) Urine Urobilinogen (Negative) Ur Leukocyte Esterase (Negative) Urine WBC (Auto) (0-5) /hpf Urine RBC (Auto) (0-2) /hpf U Hyaline Cast (Auto) (0-2) /lpf U Epithel Cells (Auto) (0-2) /hpf Urine Bacteria (Auto) (None Seen) Hyaline Casts (None Presnt) /lpf Ur Random Creatinine mg/dl Ur Random Sodium mmol/L SARS-CoV-2 (PCR) (Negative) Hep Bs Antigen (Negative) Hep Bs Antibody Hep Bs Antibody, Quant (>or=10mIU/mL Immune) mIU/mL Hep B Core IgM Ab Influenza Type A (PCR) (Neg) Influenza Type B (PCR) (Neg) RSV (RT-PCR) (Neg) Blood Type Antibody Screen Crossmatch Diagnostic Findings Chest X-Ray 05/18/24 16:07 INDICATION: Chest pain. TECHNIQUE: Frontal radiograph of the chest. COMPARISON: Radiograph from 02/28/2024. FINDINGS: Cardiomegaly. Right-sided dialysis catheter tip in the right atrium. Mild pulmonary vascular congestion. Small right greater than left pleural effusions with underlying atelectasis/airspace disease. No pneumothorax. No acute fracture. IMPRESSION: Mild pulmonary vascular congestion. Small right greater than left pleural effusions with underlying atelectasis/airspace disease. Electronically signed by Jacobo Cano 05-18-2024 4:39 PM Abdomen/Pelvis CT 05/18/24 16:14 INDICATION: Decreased urine output. Altered mental status COMPARISON: CT from 08/08/2023. TECHNIQUE: Axial CT images of the abdomen and pelvis were obtained without IV contrast administration. Coronal and sagittal reformations were reviewed. FINDINGS: Moderate volume right and small volume left pleural effusions with underlying atelectasis. Cardiomegaly. Heterogeneous/nodular appearance of the liver likely related to or cirrhosis. The gallbladder is surgically absent. Splenomegaly. The pancreas and adrenal glands appear unremarkable. Bilateral renal cysts, exophytic) with calcifications appear similar. Nonobstructing small left renal calculi. No hydronephrosis. No evidence of bowel obstruction/colitis/appendicitis. No free air. No drainable fluid collection. Anasarca. Atheromatous plaquing of the abdominal aorta without evidence of aneurysm. Urinary bladder wall thickening. Duran catheter in the urinary bladder. Bilateral inguinal hernias containing fat and small amount of ascites on the left. Degenerative changes in the spine. No acute osseous abnormality evident. IMPRESSION: 1. Moderate volume right and small volume left pleural effusions with underlying atelectasis. 2. Small volume ascites. Anasarca. 3. Cirrhosis. 4. Urinary bladder wall thickening. Flow catheter in the urinary bladder. 5. Renal cysts and renal calculi again noted. No hydronephrosis. Electronically signed by Jacobo Cano 05-18-2024 5:[address] 05/18/24 16:14 INDICATION: Altered mental status. COMPARISON: CT from 08/31/2023 TECHNIQUE: Axial CT images of the head were obtained without IV contrast. Coronal and sagittal reformations were reviewed. FINDINGS: Soria-white differentiation is relatively preserved. No mass, mass effect or midline shift. Chronic ischemic white matter changes. Basal ganglia calcifications. No evidence of acute large territorial infarction or acute intracranial hemorrhage. Ventricles appear normal in size. Basal cisterns are patent. No depressed calvarial fracture. IMPRESSION: No acute intracranial process. Electronically signed by Jacobo Cano 05-18-2024 5:11 PM Chest X-Ray 05/26/24 12:33 XR chest 1V portable CLINICAL HISTORY: Tachypnea. COMPARISON STUDY: Chest radiograph May 18, 2024. FINDINGS: A dual lumen right internal jugular dialysis catheter remains in place. There are median sternotomy wires. Moderate cardiomegaly is noted. Pulmonary edema persists. A moderate right pleural effusion has increased in size. Associated airspace opacity is present. There is a small left pleural effusion. There is no pneumothorax. IMPRESSION: 1. Increase in size of a moderate right pleural effusion. Associated airspace opacity favors atelectasis although pneumonia could appear similar. Small left pleural effusion. 2. Cardiomegaly with persistent pulmonary edema. ACT 112: Negative or not required by law. Electronically signed by: Atif aLngston M.D. 05/26/2024 1:25 PM KUB X-Ray 05/26/24 12:33 KUB HISTORY: Acute abdominal pain with distention abd distension, nausea COMPARISON: CT abdomen and pelvis 05/18/2024 FINDINGS: Right upper quadrant surgical clips are redemonstrated. Cardiomegaly with median sternotomy. Nonobstructive bowel gas pattern. Mild gaseous distention of the large bowel. No renal calculi. No ureteral calculi. No pneumoperitoneum or pneumatosis. No fracture. IMPRESSION: Nonobstructive bowel gas pattern. ACT 112: Negative or not required by law. The above report was generated using voice recognition software. It may contain grammatical, syntax or spelling errors. Electronically signed by: Paul Reyna M.D. 05/26/2024 1:22 PM PG Care Time/CCT Total # of Minutes Spent Total Time Spent: 70 Total Time Spent with Patient: Total time spent is greater than 50% in coordination of care (as documented) at patient's floor/unit and/or counseling patient: [place] [address] IN/OBS CONSULT LVL 5,80M Patient Type New History Comprehensive Exam Comprehensive Medical Decision Making High Complexity Diagnoses Altered mental status R41.82 Generalized weakness R53.1 Discussion about advance care planning held with family member Z71.0 Palliative care by specialist Z51.5
--- NOTE | 2024-05-28 10:27 | Fluoroscopy Report ---
MODIFIED BARIUM SWALLOW CLINICAL HISTORY: dysphagia; h/o aspiration COMPARISON STUDY: Modified barium swallow August 11, 2023. FLUOROSCOPY TIME: 2.58 minutes. ka,r: 13.6 mGy. TECHNIQUE: A modified barium swallow was performed in conjunction with Speech Pathology. The patient ingested varying consistencies of barium containing material. Video fluoroscopy was performed. FINDINGS: No aspiration was identified with thin liquids by spoon, cup or straw. There was no aspirat ion with nectar thick liquids, pudding or cracker and pudding consistencies. Prolonged mastication wi th cracker and pudding consistency was noted. Epiglottic inversion was normal. Laryngeal elevation wa s within normal limits. IMPRESSION: 1. Intact swallowing mechanism. No tracheal aspiration. 2. Full recommendations by Speech pathology to follow. ACT 112: Negative or not required by law. Electronically signed by: Atif Langston M.D. 05/28/2024 10:26 AM
--- NOTE | 2024-05-28 19:52 | Hospitalist Progress Note ---
Date of Service May 28, 2024 Assessment & Plan (1) Acute kidney injury: Plan: Presented with Cr 2. Baseline Cr earlier this year <2. Cr 3.38 this am s/p HD session yesterday with 1 liter of UF removed. Was hospitalized for nearly a month at [facility] this fall. Started on HD during that hospitalization. Does have right sided IJ permcath in place still. Per records had hepatorenal syndrome while in [facility]. Following his month-long stay at [facility] was discharged to [facility]; stayed there for about 3 weeks. At some point either during his stay at [facility] or while at [facility] his HD was discontinued due to some renal recovery. He is volume overloaded on exam & radiographically, has mild acidosis on labs, etc. Cont marvin. BMP daily. Possible HD tomorrow. (2) Acute metabolic encephalopathy: Plan: Likely multifactorial causes -- * elevated ammonia level (70s) * toxic effects from seroquel & benzos (clonazepam) both of which were stopped on 05/22 - unlikely at this point * acidosis could be contributing * disruption of sleep-wake cycle likely contributing * can't rule out infectious causes * can't rule out [employer] EN[employer] causes (ie stroke, etc) COVID/flu/RSV swab negative Plan - * would obtain brain MRI in am tomorrow - r/o subacute CVA(s) * cont lactulose & rifaximin * correct his acidosis with HD * consider diagnostic paracentesis to rule out SBP causing metabolic encephalopathy as he has worsening distension on exam but has no tenderness, fever, etc to suggest SBP (3) Urinary tract infection with hematuria: Plan: Known, underlying BPH He underwent Rezum procedure on December 05 had urethral stricture which was dilated on February 24, discharged with Marvin catheter Urologist Dr. Soto irrigated and repositioned his marvin catheter earlier this stay. Clots were evacuated. Hematuria resolved, did not require CBI At time of admission presumed to have had UTI, however urine culture from 05/15 with skin marco and urine and blood cultures from 05/18 were negative Was treated with cefepime then ceftriaxone 05/20-05/24 Cont marvin now and keep in at time of discharge Will need [facility] f/u post-discharge His BPs have been low thus cont to hold flomax (4) Anemia in chronic kidney disease (CKD): Plan: transfused 1u PRBCs 05/23 repeat CBC today with acceptable H/H (5) CHF (congestive heart failure): Plan: Chronic HFpEF has mechanical AVR but is no longer on chronic anticoagulation because of cirrhosis and problems with bleeding/coagulopathy Echo 02/29/2024 -- EF 50 to 55%, moderate dilation of RV, LA, RA, mechanical aortic valve in place, trace aortic regurgitation, severe tricuspid regurgitation, diastolic dysfunction grade 3 Metoprolol & bumex both on hold due to low BP & VINICIUS He is volume overloaded - likely combination of cirrhosis, VINICIUS, +/- diastolic CHF HD will be used for volume control - defer to nephrology (6) Diabetes mellitus, type 2: Plan: Most recent A1c (02/19/2024) 5.1% Now with hypoglycemia - adrenal insufficiency + poor po intake on many days Hypoglycemia resolved since starting dexamethasone (7) Cirrhosis: Plan: With hepatic encephalopathy, coagulopathy INR 1.4, thrombocytopenia Cont lactulose/rifaximin Consider paracentesis - r/o SBP - in light of severely altered mental status Cont midodrine TID for low BP (8) Muscle tone increased: Plan: appears to have UMN signs on exam due to hepatic encephalopathy? due to spinal cord lesions? (does have h/o cervical spine & thoracic spine fractures - could he have cord impingement from such?) other brain lesions? ideally we perform MRI brain & MRI c-spine/t-spine - will attempt to at least get brain MRI and c-spine MRI tomorrow am treat the hepatic encephalopathy in meantime (9) Acute hepatic encephalopathy: Plan: elevated ammonia in the 70s this week clinically improved - much more awake/alert but remains confused cont lactulose BID cont rifaximin BID (10) Acidosis: Plan: 2nd to acute kidney injury (11) History of fractured vertebra: Plan: lower c-spine and upper t-spine see discussion above in #8 (12) Hx of aortic valve replacement, mechanical: Plan: no longer on coumadin due to prior radiation proctitis, hematuria, and coagulopathy at HIGH RISK of clotting of the valve with subsequent embolic phenomenon, etc. 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 cbc am today stable (15) Hypothyroidism: Plan: TSH 5.5 earlier this admission but no changes in synthroid at this time (16) Hypotension: Plan: cirrhosis likely contributing - cont midodrine secondary adrenal insufficiency also at play cont dexamethasone 2mg IV BID he is s/p albumin, IV fluids, PRBCs this admission all w/o sustained resolution of his hypotension (17) Adrenal insufficiency: Plan: cosyntropin stim test this admission -- did not pass did not stim to >18 baseline cortisol was low at 3 cont dexamethasone 2mg IV BID for now can likely lower to 1mg BID tomorrow per daughter's report had steroids while in [place] critical illness etc all likely to blame Plan Depression with anxiety GERD- PPI updated pt's daughter Gloria at bedside today PT, OT appreciated speech consult appreciated; cleared for diet appreciate Dr Sparks's assistance palliative care consultation pending Admission and Anticipated Discharge Date Admission Date: May 18, 2024 Subjective patient very awake during my visit but severely confused unable to offer any meaningful history he did deny pain in any location eating fair per his daughter at bedside only 1 stool today (numerous stools yesterday) did work with PT - unable to stand or walk, 85% functional loss documented by PT, did very poorly; wasn't able to follow commands & instructions well seen by speech therapy today - video swallow completed - no aspiration tele overnight wnl Review of Systems Review of Systems: Unobtainable due to cognitive status Physical Exam Physical Exam: gen - awake/alert, but doesn't follow commands well; inappropriately laughs at times; oriented to person only mouth - MMM; no thrush ears - severe hearing impairment neck - mild JVD 1/3 [address] up neck heart - RRR, s1 s2, no murmur; mechanical valve closure sound lungs - mild rales b/l bases; no tachypnea or increased work of breathing abd - distended (ascites), BS+, NT, no HSM ext - pulses 2+ b/l feet, trace edema b/l neuro - increased tone x 4 extremities especially both legs; +ankle clonus; hyper-reflexia; asterixis+ vs severe action tremors b/l hands skin - pallor vascular - permcath right upper chest clean psych - oriented to person only Results & Data Results & Data Vital Signs (Past 12 Hours) Vital Signs Temp Pulse Pulse Resp BP BP Pulse Ox 05/28/24 18:06 05/28/24 15:16 36.6 C 87 18 102/65 95 05/28/24 15:03 87 05/28/24 12:17 36.5 C 88 20 117/62 95 05/28/24 09:25 05/28/24 08:13 36.8 C 88 16 111/68 95 Pulse Ox O2 Del Method O2 Del Method 05/28/24 18:06 95 Room Air 05/28/24 15:16 Room Air 05/28/24 15:03 05/28/24 12:17 Room Air 05/28/24 09:25 Room Air 05/28/24 08:13 Room Air Laboratory Results Laboratory Results - last 48 hr 05/26/24 05/27/24 05/27/24 17:05 07:58 17:04 WBC RBC Hgb Hct MCV MCH MCHC RDW Std Deviation RDW Coeff of Nick Plt Count MPV Sodium 144 Potassium 4.8 Chloride 114 H Carbon Dioxide 18 L Anion Gap 12 H BUN 63 H Creatinine 3.56 H Est Cr Clr Drug Dosing 17.1 eGFR 16.79 BUN/Creatinine Ratio 17.7 Glucose 139 H POC Glucose 104 H Calcium 8.9 Total Bilirubin AST ALT Alkaline Phosphatase Total Protein Albumin Globulin Albumin/Globulin Ratio Cortisol Response Hep Bs Antigen Negative Hep Bs Antibody Non-Immune Hep Bs Antibody, Quant 3.77 05/27/24 05/28/24 05/28/24 20:15 07:01 08:08 WBC 6.81 RBC 2.75 L Hgb 8.6 L Hct 27.4 L MCV 99.6 MCH 31.3 MCHC 31.4 L RDW Std Deviation 72.1 H RDW Coeff of Nick 19.9 H Plt Count 133 MPV 10.9 Sodium 145 Potassium 4.8 Chloride 112 H Carbon Dioxide 16 L Anion Gap 17 H BUN 49 H Creatinine 3.38 H Est Cr Clr Drug Dosing 18.0 eGFR 17.87 BUN/Creatinine Ratio 14.5 Glucose 81 POC Glucose 108 H 92 Calcium 9.3 Total Bilirubin AST ALT Alkaline Phosphatase Total Protein Albumin Globulin Albumin/Globulin Ratio Cortisol Response Hep Bs Antigen Hep Bs Antibody Hep Bs Antibody, Quant 05/28/24 05/28/24 11:48 16:43 WBC RBC Hgb Hct MCV MCH MCHC RDW Std Deviation RDW Coeff of Nick Plt Count MPV Sodium Potassium Chloride Carbon Dioxide Anion Gap BUN Creatinine Est Cr Clr Drug Dosing eGFR BUN/Creatinine Ratio Glucose POC Glucose 103 H 112 H Calcium Total Bilirubin AST ALT Alkaline Phosphatase Total Protein Albumin Globulin Albumin/Globulin Ratio Cortisol Response Hep Bs Antigen Hep Bs Antibody Hep Bs Antibody, Quant PG Care Time/CCT Total # of Minutes Spent Total Time Spent with Patient: Total time spent is greater than 50% in coordination of care (as documented) at patient's floor/unit and/or counseling patient: Coding Level of Care Code 46896 SUB INP/OBS CARE 3/50MIN Diagnoses Acute kidney injury N17.9 Acute metabolic encephalopathy G93.41 Urinary tract infection with hematuria N39.0; R31.9 Anemia in chronic kidney disease (CKD) N18.9; D63.1 CHF (congestive heart failure) I50.9 Diabetes mellitus, type 2 E11.9 Cirrhosis K74.60 Muscle tone increased M62.89 Acute hepatic encephalopathy K76.82 Acidosis E87.20 History of fractured vertebra Z87.81 Hx of aortic valve replacement, mechanical Z95.2 Hx of aortic aneurysm Z86.79 Pancytopenia D61.818 Hypothyroidism E03.9 Hypotension I95.9 Hypotension type: unspecified hypotension type Adrenal insufficiency E27.40 (16) Hypotension Hypotension type: unspecified hypotension type Qualified Code(s): I95.9 - Hypotension, unspecified
[2024-05-29 07:02] LABS: Hematocrit (blood only) 29.3 % (42.0-52.0); Hemoglobin 9.4 g/dl (14.0-18.0); Mean Corpuscular Hemoglobin 32.1 pg (25.0-34.0); Mean Corpuscular Hgb Conc 32.1 g/dL (32.0-36.0); Mean Platelet Volume 10.6 fL (9.4-12.4); Platelet Count 156 K/uL (130-400); RDW Coefficient of Variation 19.9 % (11.5-14.5); RDW Standard Deviation 73.8 fL (36.4-46.3); Red Blood Count 2.93 M/uL (4.70-6.10); White Blood Count 7.69 K/ul (4.8-10.8)
[2024-05-29 07:41] LABS: Albumin Globulin Ratio 1.2 (0.9-2); Albumin Level 3.8 gm/dl (3.4-5.0); BUN Creatinine Ratio 14.1 (10-20); Calcium 9.4 mg/dl (8.6-10.3); Creatinine Clr Calc Pharmacy 13.4 ml/min; Globulin 3.2 gm/dl (2.5-4.0); Potassium 4.8 mmol/L (3.5-5.1)
--- NOTE | 2024-05-29 11:12 | Nephrology Progress Note ---
Date of Service May 29, 2024 Assessment & Plan (1) Acute kidney injury: (2) Altered mental status: (3) Anemia: (4) Hematuria: (5) Acute confusion: Plan 79-year-old male with h/o stage 4 CKD with baseline creatinine 2.0 dating back to at least 08/30. He was hospitalized recently at [facility] for hepatorenal syndrome and required initiation of HD but stopped ~ 1 month ago, still has a R IJ TCC in place. He was admitted on 05/18/2024 for evaluatio n of gross hematuria, mental status changes, INR 13 and creatinine 2.0. Since admission his hemoglobin has dropped to 7.2 and creatinine has risen to 3.0 and he has been oliguric. Renal ultrasound negative for hydronephrosis. Patient's mental status changes did not improve. He was restarted on HD on 05/27/24 for oliguric VINICIUS. He remained oliguric, confused and has shock rise send creatinine off dialysis yesterday. Hemoglobin continues to improve slowly after blood transfusion for gross hematuria and Coumadin coagulopathy on admission. --Will plan for hemodialysis 3 hours today, UF as tolerated -- Dose medications for EGFR less than 10 Admission and Anticipated Discharge Date Admission Date: May 18, 2024 Subjective Papito was seen and evaluated this morning. Continues to be confused, did not answer any question in a meaningful way. But looked comfortable. Remain oliguric with minimal urine output. Lab was notable for sharp rise in creatinine after dialysis yesterday. Hemoglobin continues to improve, 9.4 this morning. Physical Exam Constitutional: WD/WN, vitals as above + ill appearing and + altered mental status; no acute distress Eyes: + anicteric sclerae Respiratory: Auscultation: lungs clear to auscultation bilaterally Cardiovascular: Rate/Rhythm: regular rate and regular rhythm Heart Sounds: normal S1 and normal S2 Extremities: no edema Skin: no ulcers Neurologic: remain confused, detail exam was not possible Psychiatric: awake, alert, confused Results & Data Vital Signs (Past 12 Hours) Vital Signs Temp Pulse Pulse Resp BP Pulse Ox O2 Del Method 05/29/24 07:50 36.4 C L 87 16 120/73 94 Room Air 05/29/24 05:41 87 05/29/24 04:08 37.0 C 87 18 118/67 95 Room Air 05/28/24 23:58 36.6 C 85 18 115/70 94 Room Air PG Care Time/CCT Total # of Minutes Spent Total Time Spent with Patient: Total time spent is greater than 50% in coordination of care (as documented) at patient's floor/unit and/or counseling patient: Coding Level of Care Code 52593 SUB INP/OBS CARE 2/35MIN Diagnoses Acute kidney injury N17.9 Altered mental status R41.82 Anemia D64.9 Anemia type: unspecified type Hematuria R31.0 Hematuria type: gross Acute confusion R41.0 (3) Anemia Anemia type: unspecified type Qualified Code(s): D64.9 - Anemia, unspecified (4) Hematuria Hematuria type: gross Qualified Code(s): R31.0 - Gross hematuria
[2024-05-29] MEDS: dexAMETHasone 1 MG in SYRINGE 0 ML IV SCH (16:02)
--- NOTE | 2024-05-29 16:33 | Magnetic Resonance Report ---
EXAM: MR brain wo con CLINICAL HISTORY: altered mental status, Hx fractured vertebra in lower c-spine and upper t-spine around 4 years ago, questioning cord impingement or brain lesions, PT is on dialysis, evaluate for stroke also, has been off Coumadin for a few months, PT unable to lay flat for scan, head had to be propped up quite a bit to get PT scanned, best obtainable images for PT''s condition, PT unable to fully cooperate, screened PT through his Lakia Jarquin and daughter Kristin Jarquin, delay in getting PT scanned due to PT being in dialysis for 3 hours TECHNIQUE: MRI of the brain was performed without contrast with multiplanar sequences obtained. Images were sent through PACS for diagnostic interpretation. COMPARISON: Comparison is made with prior imaging studies dated 09/04/2023. FINDINGS: Brain Parenchyma: Periventricular deep white matter signal alteration is likely related to small vessel disease. No evidence of acute infarction or hemorrhage. Normal whipple-white matter differentiation. No mass lesions or focal cortical abnormalities were identified. Ventricles and Sulci: Normal size and configuration of the lateral ventricles, third ventricle, and fourth ventricle. No evidence of hydrocephalus or ventriculomegaly. Sylvian fissures, sulci, and cisterns are within normal limits. Posterior Fossa: The cerebellum and brainstem appear normal without evidence of mass lesions or signal abnormalities. Cranial Nerves: Normal course and appearance of cranial nerves identified. Vessels: No evidence of vascular malformations or aneurysms. Intracranial arteries and veins appear normal without evidence of stenosis or occlusion. Orbits and Skull Base: Orbits and skull base structures are normal without evidence of abnormalities. IMPRESSION: MRI of the brain: 1. Periventricular deep white matter signal alteration is likely related to small vessel disease ([place] 2). 2. No evidence of acute infarction or hemorrhage. 3. No interval changes. Electronically signed by Jeffery Saleh 05-29-2024 4:33 PM
--- NOTE | 2024-05-29 17:11 | Magnetic Resonance Report ---
EXAM: MR cervical spine wo con CLINICAL HISTORY: altered mental status, Hx fractured vertebra in lower c-spine and upper t-spine around 4 years ago, questioning cord impingement or brain lesions, PT is on dialysis, evaluate for stroke also, has been off Coumadin for a few months, PT unable to lay flat for scan, head had to be propped up quite a bit to get PT scanned, best obtainable images for PT''s condition, PT unable to fully cooperate, screened PT through his Lakia Jarquin and daughter Kristin Jarquin, delay in getting PT scanned due to PT being in dialysis for 3 hours sent to [facility] TECHNIQUE: An MRI of the cervical spine was performed without contrast administration. Sequences obtained include sagittal T1-weighted, T2-weighted, STIR (Short Tau Inversion Recovery), and axial T2-weighted sequences. Images were sent through PACS for diagnostic interpretation. COMPARISON: No previous studies are available for comparison. FINDINGS: Vertebral Alignment: Small old fracture of the anterior superior wedge of the C5 vertebra and an old injury of the right facetal joint at the level of C4 and C5. First-degree spondylolithesis of C4 over C5 vertebrae. Tiny focal of the high signal of cervical spinal cord C5 vertebra at its left side likely small myelomalacia. Degenerative changes of the spines with osteophyte formation. Intervertebral discs demonstrate degenerative changes. [id number] analysis: C2-C3: There is no significant disc pathology. Normal morphology of the ligamentum flava. No arthropathy of the uncovertebral and zygapophyseal joints. No significant spinal canal stenosis C3-C4: There is no significant disc pathology. Normal morphology of the ligamentum flava. No arthropathy of the uncovertebral and zygapophyseal joints. No significant spinal canal stenosis C4-C5: There is degenerative changes with arthropathy of the uncovertebral, zygapophyseal joints and unilateral facetal injury causing pressure upon the neural foramen more on the right side No spinal canal stenosis C5-C6: There is no significant disc pathology. Normal morphology of the ligamentum flava. No arthropathy of the uncovertebral and zygapophyseal joints. No significant spinal canal stenosis C6-C7: There is no significant disc pathology. Normal morphology of the ligamentum flava. No arthropathy of the uncovertebral and zygapophyseal joints. No significant spinal canal stenosis C7-T1: There is no significant disc pathology. Normal morphology of the ligamentum flava. No arthropathy of the uncovertebral and zygapophyseal joints. No significant spinal canal stenosis Soft Tissues: Paraspinal soft tissues showed mild atrophic changes in the muscles. IMPRESSION: 1. Small old fracture of the anterior superior wedge of the C5 vertebra and old injury of the right facetal joint at the level of C4 and C5 suggesting unilateral facetal injury. First-degree spondylolithesis of C4 over C5 vertebrae. 2. Tiny focal of the high signal of cervical spinal cord C5 vertebra at its left side likely small myelomalcia. 3. Degenerative changes of the spines and intervertebral discs more at the C4-5 level together with arthropathy of the uncovertebral, zygapophyseal joints and facetal injury causing pressure upon the right neural foramen. No spinal canal stenosis Electronically signed by Jeffery Saleh 05-29-2024 5:10 PM
--- NOTE | 2024-05-29 21:07 | Hospitalist Progress Note ---
Date of Service May 29, 2024 Assessment & Plan (1) Acute kidney injury: Plan: Presented with Cr 2. Baseline Cr earlier this year <2. Cr 4.5 today underwent another HD session today - 2 L UF removed Volume status much better Was hospitalized for nearly a month at [facility] this fall. Started on HD during that hospitalization. Does have right sided IJ permcath in place still. Per records had hepatorenal syndrome while in [facility]. Following his month-long stay at [place] was discharged to [facility]; stayed there for about 3 weeks. At some point either during his stay at [facility] or while at [facility] his HD was discontinued due to some renal recovery. Cont marvin. BMP daily. (2) Acute metabolic encephalopathy: Plan: Likely multifactorial causes -- * elevated ammonia level (70s) * toxic effects from seroquel & benzos (clonazepam) both of which were stopped on 05/22 - unlikely at this point * acidosis could be contributing * disruption of sleep-wake cycle likely contributing * can't rule out infectious causes COVID/flu/RSV swab negative MRI brain today - no acute or subacute CVA; no old CVA; no ICH or mass Plan - * recheck ammonia level am; cont lactulose & rifaximin * correct his acidosis with HD; BMP am * consider diagnostic paracentesis to rule out SBP causing metabolic encephalopathy as he has worsening distension on exam (but has no tenderness, fever, etc to suggest SBP, however) if w/u is negative he may simply be experiencing SEVERE hospital delirium (3) Urinary tract infection with hematuria: Plan: Known, underlying BPH He underwent Rezum procedure on December 05 had urethral stricture which was dilated on February 24, discharged with Marvin catheter Urologist Dr. Soto irrigated and repositioned his marvin catheter earlier this stay. Clots were evacuated. Hematuria resolved, did not require CBI At time of admission presumed to have had UTI, however urine culture from 05/15 with skin marco and urine and blood cultures from 05/18 were negative Was treated with cefepime then ceftriaxone 05/20-05/24 Cont marvin now and keep in at time of discharge Will need [facility] f/u post-discharge His BPs have been low thus cont to hold flomax (4) Anemia in chronic kidney disease (CKD): Plan: transfused 1u PRBCs 05/23 repeat CBC today with acceptable H/H (5) CHF (congestive heart failure): Plan: Chronic HFpEF has mechanical AVR but is no longer on chronic anticoagulation because of cirrhosis and problems with bleeding/coagulopathy Echo 02/29/2024 -- EF 50 to 55%, moderate dilation of RV, LA, RA, mechanical aort ic valve in place, trace aortic regurgitation, severe tricuspid regurgitation, diastolic dysfunction grade 3 Metoprolol & bumex both on hold due to low BP & VINICIUS He is volume overloaded - likely combination of cirrhosis, VINICIUS, +/- diastolic CHF HD being used for volume control - s/p HD today - 2 liters taken off (6) Diabetes mellitus, type 2: Plan: Most recent A1c (02/19/2024) 5.1% Now with hypoglycemia - adrenal insufficiency + poor po intake on many days Hypoglycemia resolved since starting dexamethasone (7) Cirrhosis: Plan: With hepatic encephalopathy, coagulopathy INR 1.4, thrombocytopenia Cont lactulose/rifaximin Consider paracentesis - r/o SBP - in light of severely altered mental status Cont midodrine TID for low BP (8) Muscle tone increased: Plan: appears to have UMN signs on exam etiology uncertain hepatic encephalopathy has been aggressively treated MRI brain w/o pathology MRI c-spine with C5 myelomalacia - contributing?? but no severe spinal stenosis of c-spine had neuro eval earlier this week - PSP?? (9) Acute hepatic encephalopathy: Plan: elevated ammonia in the 70s this week clinically improved - much more awake/alert but remains confused cont lactulose BID cont rifaximin BID repeat ammonia in am (10) Acidosis: Plan: 2nd to acute kidney injury BMP am (11) History of fractured vertebra: Plan: lower c-spine and upper t-spine see discussion above in #8 (12) Hx of aortic valve replacement, mechanical: Plan: no longer on coumadin due to prior radiation proctitis, hematuria, and coagulopathy at HIGH RISK of clotting of the valve with subsequent embolic phenomenon, etc. 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 improved today (15) Hypothyroidism: Plan: TSH 5.5 earlier this admission but no changes in synthroid at this time (16) Hypotension: Plan: cirrhosis likely contributing - cont midodrine secondary adrenal insufficiency also at play cont dexamethasone BID but lower to 1mg BID since BPs are stable he is s/p albumin, IV fluids, PRBCs this admission all w/o sustained resolution of his hypotension (17) Adrenal insufficiency: Plan: cosyntropin stim test this admission -- did not pass did not stim to >18 baseline cortisol was low at 3 cont dexamethasone 2mg IV BID for now can lower to 1mg BID today per daughter's report had steroids while in [place] critical illness etc all likely to blame Plan Depression with anxiety GERD- PPI updated pt's daughter Gloria at bedside yesterday PT, OT appreciated speech consult appreciated; cleared for diet appreciate nephrology assistance palliative care consult attempted by Dr Jimenes but she did not connect with family likely to take place this week then Admission and Anticipated Discharge Date Admission Date: May 18, 2024 Subjective saw patient following dialysis in which 2 liters of fluid were removed he was resting in bed comfortably was awake, but could not tell me where he was or why he was here denied pain any location said "I feel good" and "everything is ok" could not provide any meaningful history per staff - * slept well overnight; no * ate little breakfast, skipped lunch * 3 small stools today thus far Review of Systems Review of Systems: Unobtainable due to cognitive status Physical Exam Physical Exam: gen - awake/alert, but very confused - looks similar to yesterday mouth - MMM; no thrush ears - severe hearing impairment neck - JVD improved heart - RRR, s1 s2, no murmur; mechanical valve closure sound lungs - mild rales improved today; no wheeze abd - probable ascites, BS+, NT, no HSM ext - pulses 2+ b/l feet, no edema b/l neuro - increased tone x 4 extremities; +ankle clonus; asterixis vs severe action tremors b/l hands (latter favored) vascular - permcath right upper chest clean psych - oriented to person only Results & Data Results & Data Vital Signs (Past 12 Hours) Vital Signs Temp Pulse Pulse Pulse Resp BP BP 05/29/24 19:16 36.5 C 79 18 100/59 L 05/29/24 18:14 05/29/24 15:21 36.5 C 76 18 112/62 05/29/24 14:00 36.5 C 82 116/62 05/29/24 13:30 81 114/64 05/29/24 13:00 79 05/29/24 13:00 78 110/64 05/29/24 12:30 80 110/61 05/29/24 12:00 82 118/64 05/29/24 11:30 84 124/72 05/29/24 11:00 87 128/79 05/29/24 10:53 36.5 C 84 Pulse Ox O2 Del Method O2 Del Method 05/29/24 19:16 94 Room Air 05/29/24 18:14 Room Air 05/29/24 15:21 95 Room Air 05/29/24 14:00 05/29/24 13:30 05/29/24 13:00 05/29/24 13:00 05/29/24 12:30 05/29/24 12:00 05/29/24 11:30 05/29/24 11:00 05/29/24 10:53 Laboratory Results Laboratory Results - last 24 hr 05/26/24 05/29/24 05/29/24 17:05 06:38 08:07 WBC 7.69 RBC 2.93 L Hgb 9.4 L Hct 29.3 L MCV 100.0 MCH 32.1 MCHC 32.1 RDW Std Deviation 73.8 H RDW Coeff of Nick 19.9 H Plt Count 156 MPV 10.6 Sodium 146 H Potassium 4.8 Chloride 113 H Carbon Dioxide 19 L Anion Gap 14 H BUN 64 H Creatinine 4.53 H* D Est Cr Clr Drug Dosing 13.4 eGFR 12.57 BUN/Creatinine Ratio 14.1 Glucose 107 H POC Glucose 104 H Calcium 9.4 Total Bilirubin 1.0 AST 61 H ALT 24 Alkaline Phosphatase 79 Total Protein 7.0 Albumin 3.8 Globulin 3.2 Albumin/Globulin Ratio 1.2 Hep B Core IgM Ab NON-REACTIVE 05/29/24 05/29/24 16:52 20:04 WBC RBC Hgb Hct MCV MCH MCHC RDW Std Deviation RDW Coeff of Nick Plt Count MPV Sodium Potassium Chloride Carbon Dioxide Anion Gap BUN Creatinine Est Cr Clr Drug Dosing eGFR BUN/Creatinine Ratio Glucose POC Glucose 89 138 H Calcium Total Bilirubin AST ALT Alkaline Phosphatase Total Protein Albumin Globulin Albumin/Globulin Ratio Hep B Core IgM Ab Diagnostic Findings Brain MRI 05/29/24 07:00 EXAM: MR brain wo con CLINICAL HISTORY: altered mental status, Hx fractured vertebra in lower c-spine and upper t-spine around 4 years ago, questioning cord impingement or brain lesions, PT is on dialysis, evaluate for stroke also, has been off Coumadin for a few months, PT unable to lay flat for scan, head had to be propped up quite a bit to get PT scanned, best obtainable images for PT''s condition, PT unable to fully cooperate, screened PT through his Lakia Jarquin and daughter Kristin Jarquin, delay in getting PT scanned due to PT being in dialysis for 3 hours TECHNIQUE: MRI of the brain was performed without contrast with multiplanar sequences obtained. Images were sent through PACS for diagnostic interpretation. COMPARISON: Comparison is made with prior imaging studies dated 09/04/2023. FINDINGS: Brain Parenchyma: Periventricular deep white matter signal alteration is likely related to small vessel disease. No evidence of acute infarction or hemorrhage. Normal whipple-white matter differentiation. No mass lesions or focal cortical abnormalities were identified. Ventricles and Sulci: Normal size and configuration of the lateral ventricles, third ventricle, and fourth ventricle. No evidence of hydrocephalus or ventriculomegaly. Sylvian fissures, sulci, and cisterns are within normal limits. Posterior Fossa: The cerebellum and brainstem appear normal without evidence of mass lesions or signal abnormalities. Cranial Nerves: Normal course and appearance of cranial nerves identified. Vessels: No evidence of vascular malformations or aneurysms. Intracranial arteries and veins appear normal without evidence of stenosis or occlusion. Orbits and Skull Base: Orbits and skull base structures are normal without evidence of abnormalities. IMPRESSION: MRI of the brain: 1. Periventricular deep white matter signal alteration is likely related to small vessel disease ([place] 2). 2. No evidence of acute infarction or hemorrhage. 3. No interval changes. Electronically signed by Jeffery Saleh 05-29-2024 4:33 PM Cervical Spine MRI 05/29/24 07:00 EXAM: MR cervical spine wo con CLINICAL HISTORY: altered mental status, Hx fractured vertebra in lower c-spine and upper t-spine around 4 years ago, questioning cord impingement or brain lesions, PT is on dialysis, evaluate for stroke also, has been off Coumadin for a few months, PT unable to lay flat for scan, head had to be propped up quite a bit to get PT scanned, best obtainable images for PT''s condition, PT unable to fully cooperate, screened PT through his Lakia Jarquin and daughter Kristin Jarquin, delay in getting PT scanned due to PT being in dialysis for 3 hours sent to [facility] TECHNIQUE: An MRI of the cervical spine was performed without contrast administration. Sequences obtained include sagittal T1-weighted, T2-weighted, STIR (Short Tau Inversion Recovery), and axial T2-weighted sequences. Images were sent through PACS for diagnostic interpretation. COMPARISON: No previous studies are available for comparison. FINDINGS: Vertebral Alignment: Small old fracture of the anterior superior wedge of the C5 vertebra and an old injury of the right facetal joint at the level of C4 and C5. First-degree spondylolithesis of C4 over C5 vertebrae. Tiny focal of the high signal of cervical spinal cord C5 vertebra at its left side likely small myelomalacia. Degenerative changes of the spines with osteophyte formation. Intervertebral discs demonstrate degenerative changes. [id number] analysis: C2-C3: There is no significant disc pathology. Normal morphology of the ligamentum flava. No arthropathy of the uncovertebral and zygapophyseal joints. No significant spinal canal stenosis C3-C4: There is no significant disc pathology. Normal morphology of the ligamentum flava. No arthropathy of the uncovertebral and zygapophyseal joints. No significant spinal canal stenosis C4-C5: There is degenerative changes with arthropathy of the uncovertebral, zygapophyseal joints and unilateral facetal injury causing pressure upon the neural foramen more on the right side No spinal canal stenosis C5-C6: There is no significant disc pathology. Normal morphology of the ligamentum flava. No arthropathy of the uncovertebral and zygapophyseal joints. No significant spinal canal stenosis C6-C7: There is no significant disc pathology. Normal morphology of the ligamentum flava. No arthropathy of the uncovertebral and zygapophyseal joints. No significant spinal canal stenosis C7-T1: There is no significant disc pathology. Normal morphology of the ligamentum flava. No arthropathy of the uncovertebral and zygapophyseal joints. No significant spinal canal stenosis Soft Tissues: Paraspinal soft tissues showed mild atrophic changes in the muscles. IMPRESSION: 1. Small old fracture of the anterior superior wedge of the C5 vertebra and old injury of the right facetal joint at the level of C4 and C5 suggesting unilateral facetal injury. First-degree spondylolithesis of C4 over C5 vertebrae. 2. Tiny focal of the high signal of cervical spinal cord C5 vertebra at its left side likely small myelomalcia. 3. Degenerative changes of the spines and intervertebral discs more at the C4-5 level together with arthropathy of the uncovertebral, zygapophyseal joints and facetal injury causing pressure upon the right neural foramen. No spinal canal stenosis Electronically signed by Jeffery Saleh 05-29-2024 5:10 PM PG Care Time/CCT Total # of Minutes Spent Total Time Spent with Patient: Total time spent is greater than 50% in coordination of care (as documented) at patient's floor/unit and/or counseling patient: Coding Level of Care Code 86363 SUB INP/OBS CARE 2/35MIN Diagnoses Acute kidney injury N17.9 Acute metabolic encephalopathy G93.41 Urinary tract infection with hematuria N39.0; R31.9 Anemia in chronic kidney disease (CKD) N18.9; D63.1 CHF (congestive heart failure) I50.9 Diabetes mellitus, type 2 E11.9 Cirrhosis K74.60 Muscle tone increased M62.89 Acute hepatic encephalopathy K76.82 Acidosis E87.20 History of fractured vertebra Z87.81 Hx of aortic valve replacement, mechanical Z95.2 Hx of aortic aneurysm Z86.79 Pancytopenia D61.818 Hypothyroidism E03.9 Hypotension I95.9 Hypotension type: unspecified hypotension type Adrenal insufficiency E27.40 (16) Hypotension Hypotension type: unspecified hypotension type Qualified Code(s): I95.9 - Hypotension, unspecified
[2024-05-30 08:17] LABS: BUN Creatinine Ratio 11.8 (10-20); Calcium 8.9 mg/dl (8.6-10.3); Creatinine Clr Calc Pharmacy 16.7 ml/min; Potassium 3.9 mmol/L (3.5-5.1)
--- NOTE | 2024-05-30 12:42 | Nephrology Progress Note ---
Date of Service May 30, 2024 Assessment & Plan (1) Acute kidney injury: (2) Altered mental status: (3) Anemia: (4) Hematuria: (5) Acute confusion: Plan 79-year-old male with h/o stage 4 CKD with baseline creatinine 2.0 dating back to at least 08/30. He was hospitalized recently at [facility] for hepatorenal syndrome and required initiation of HD but stopped ~ 1 month ago, still has a R IJ TCC in place. He was admitted on 05/18/2024 for evaluatio n of gross hematuria, mental status changes, INR 13 and creatinine 2.0. Since admission his hemoglobin has dropped to 7.2 and creatinine has risen to 3.0 and he has been oliguric. Renal ultrasound negative for hydronephrosis. Patient's mental status changes did not improve. Had MRI brain and cervical spine on 05/29/2024 which was unremarkable with no evidence of acute CVA. He was restarted on HD on 05/27/24 for oliguric VINICIUS. He remained oliguric, confused. Hemoglobin continues to improve slowly after blood transfusion for gross hematuria and Coumadin coagulopathy on admission. --Continue on dialysis for now has remained quite oligo anuric, will plan for dialysis for 4 hours tomorrow. --Dose medications for eGFR less than 10 --Palliative care team is on board for ongoing discussion for goals of care, plan at this time is to continue current management including dialysis. Admission and Anticipated Discharge Date Admission Date: May 18, 2024 Subjective Papito was seen and evaluated this morning. Continues to be confused, did not answer any question in a meaningful way. But looked comfortable. Remain oliguric with minimal urine output. Had dialysis yesterday, tolerated 2 L of UF. Electrolyte acceptable today. Creatinine was lower as expected post dialysis. Blood pressure well-controlled. Review of Systems Review of Systems: Unobtainable due to cognitive status Physical Exam Constitutional: WD/WN, vitals as above + ill appearing and + altered mental status; no acute distress Eyes: + anicteric sclerae Respiratory: Auscultation: lungs clear to auscultation bilaterally Cardiovascular: Rate/Rhythm: regular rate and regular rhythm Heart Sounds: normal S1 and normal S2 Extremities: no edema Skin: no ulcers Results & Data Vital Signs (Past 12 Hours) Vital Signs Temp Pulse Pulse Resp BP Pulse Ox O2 Del Method 05/30/24 10:58 36.5 C 78 16 116/64 96 Room Air 05/30/24 07:25 Room Air 05/30/24 07:20 36.4 C L 75 18 113/64 93 Room Air 05/30/24 05:53 71 05/30/24 03:12 37.3 C 75 18 111/65 95 Room Air PG Care Time/CCT Total # of Minutes Spent Total Time Spent with Patient: Total time spent is greater than 50% in coordination of care (as documented) at patient's floor/unit and/or counseling patient: Coding Level of Care Code 95721 SUB INP/OBS CARE 2/35MIN Diagnoses Acute kidney injury N17.9 Altered mental status R41.82 Anemia D64.9 Anemia type: unspecified type Hematuria R31.0 Hematuria type: gross Acute confusion R41.0 (3) Anemia Anemia type: unspecified type Qualified Code(s): D64.9 - Anemia, unspecified (4) Hematuria Hematuria type: gross Qualified Code(s): R31.0 - Gross hematuria
[2024-05-30 16:50] LABS: Appearance Urine Turbid (Clear); Bilirubin Urine 2+ (Negative); Blood Urine 3+ (Negative); Color Urine Amber; Glucose Urine UA Negative (Negative); Ketones Urine 1+ (Negative); Leukocyte Esterase Urine 3+ (Negative); Nitrite Urine Negative (Negative); Protein Urine 3+ (Negative); Specific Gravity Urine 1.025 (1.000-1.030); Urobilinogen Urine Negative (Negative); pH Urine 5.5 (4.5-7.5)
[2024-05-30 16:58] LABS: Bacteria Urine None Seen (None Seen); Epithelial Cell Urine 0-2 /hpf (0-2); RBC Urine >20 /hpf (0-2); WBC Urine >50 /hpf (0-5)
--- NOTE | 2024-05-30 17:18 | XRay Report ---
EXAM: Radiograph of the Chest 1 View INDICATION: CHF versus pneumonia. TECHNIQUE: Frontal view of the chest. COMPARISON: 05/26/2024 FINDINGS: Lungs and pleural spaces: There is increased consolidation in the left lung base and stable right basilar consolidation. Small right pleural effusion slightly increased layering more posteriorly. No pneumothorax. Increased underlying pulmonary vascular congestion. Heart: Stable cardiomegaly. Mediastinum: Normal contour. Bones/joints: No fracture, erosion or dislocation. Soft tissues: No abnormality noted. No radiopaque foreign body noted. Tubes, lines and devices: Right internal jugular central venous catheter tip in the distal superior vena cava. Upper abdomen: No abnormality noted. IMPRESSION: 1. Increased small bilateral pleural effusions with worsening left and stable right basilar airspace disease which could reflect pneumonia or compressive atelectasis. 2. Increased component of underlying pulmonary vascular congestion. ACT 112: Negative or not required by law. Electronically signed by Tamara Valentine 05-30-2024 5:17 PM
[2024-05-30 17:34] LABS: Adenovirus PCR Not Detected (NotDetected); Bordetella parapertussis PCR Not Detected (NotDetected); Bordetella pertussis PCR Not Detected (NotDetected); Chlamydia pneumoniae PCR Not Detected (NotDetected); Coronavirus 229E PCR Not Detected (NotDetected); Coronavirus CoV-2 (COVID19)PCR Not Detected (NotDetected); Coronavirus HKU1 PCR Not Detected (NotDetected); Coronavirus NL63 PCR Not Detected (NotDetected); Coronavirus OC43PCR Not Detected (NotDetected); Human Metapneumovirus PCR Not Detected (NotDetected); Influenza A PCR Not Detected (NotDetected); Influenza B PCR Not Detected (NotDetected); Mycoplasma pneumoniae PCR Not Detected (NotDetected); Parainfluenza Virus 1 PCR Not Detected (NotDetected); Parainfluenza Virus 2 PCR Not Detected (NotDetected); Parainfluenza Virus 3 PCR Not Detected (NotDetected); Parainfluenza Virus 4 PCR Not Detected (NotDetected); Respiratory Syncytial VirusPCR Not Detected (NotDetected); Rhinovirus/Enterovirus PCR DETECTED (NotDetected)
--- NOTE | 2024-05-30 19:54 | Hospitalist Progress Note ---
Date of Service May 30, 2024 Assessment & Plan (1) Rhinovirus infection: Plan: this explains significant drop-off in mentation today (although prior mental status was already poor to begin with) along with severe cough supportive care droplet precautions ordered cxr - r/o bacterial superinfection for cough - tessalon TID + albuterol QID (2) Acute kidney injury: Plan: Presented with Cr 2. Baseline Cr earlier this year <2. Over the last few days his creatinine had been getting worse with acidosis & volume overload present. Thus, HD resumed - had session #1 with 1 L UF removed. Then had 2nd HD session yesterday - 2 L UF removed Volume status better but still overloaded on exam To have HD tomorrow Was hospitalized for nearly a month at [facility] this fall. Started on HD during that hospitalization. Does have right sided IJ permcath in place still. Per records had hepatorenal syndrome while in [facility]. Following his month-long stay at [place] was discharged to [facility]; stayed there for about 3 weeks. At some point either during his stay at [facility] or while at [facility] his HD was discontinued due to some renal recovery. Cont marvin (not to document UOP but due to urological issues) BMP daily. (3) Acute metabolic encephalopathy: Plan: Likely multifactorial causes -- * elevated ammonia level (70s this week) -- now improved * toxic effects from seroquel & benzos (clonazepam) both of which were stopped on 05/22 - unlikely at this point * acidosis could be contributing * disruption of sleep-wake cycle likely contributing * now with rhinovirus * hospital delirium MRI brain - no acute or subacute CVA; no old CVA; no ICH or mass supportive care treat individual issues (4) Urinary tract infection with hematuria: Plan: Known, underlying BPH He underwent Rezum procedure on December 05 had urethral stricture which was dilated on February 24, discharged with Marvin catheter Urologist Dr. Soto irrigated and repositioned his marvin catheter earlier this stay. Clots were evacuated. Hematuria resolved, did not require CBI At time of admission presumed to have had UTI, however urine culture from 05/15 with skin marco and urine and blood cultures from 05/18 were negative Was treated with cefepime then ceftriaxone 05/20-05/24 Cont marvin now and keep in at time of discharge [place] [facility] [place] His BPs have been low thus cont to hold flomax repeat u/a and urine cx today due to worsening mental status (5) Anemia in chronic kidney disease (CKD): Plan: transfused 1u PRBCs 05/23 ongoing acceptable H/H (6) CHF (congestive heart failure): Plan: Chronic HFpEF has mechanical AVR but is no longer on chronic anticoagulation because of ci rrhosis and problems with bleeding/coagulopathy Echo 02/29/2024 -- EF 50 to 55%, moderate dilation of RV, LA, RA, mechanical aortic valve in place, trace aortic regurgitation, severe tricuspid regurgi tation, diastolic dysfunction grade 3 Metoprolol & bumex both on hold due to low BP & VINICIUS He is volume overloaded - likely combination of cirrhosis, VINICIUS, +/- diastolic CHF HD being used for volume control - s/p HD x 2 sessions this week (7) Diabetes mellitus, type 2: Plan: Most recent A1c (02/19/2024) 5.1% Now with hypoglycemia - adrenal insufficiency + poor po intake on many days Hypoglycemia resolved since starting dexamethasone (8) Cirrhosis: Plan: With hepatic encephalopathy, coagulopathy INR 1.4, thrombocytopenia Cont lactulose/rifaximin Consider paracentesis - r/o SBP - in light of severely altered mental status Cont midodrine TID for low BP (9) Muscle tone increased: Plan: appears to have UMN signs on exam hepatic encephalopathy has been aggressively treated MRI brain w/o pathology MRI c-spine with C5 myelomalacia - contributing?? but no severe spinal stenosis of c-spine but the C5 issue could be contributing had neuro eval earlier this week - PSP?? either way nothing we can do at the present time due to numerous other issues as noted in this progress note (10) Acute hepatic encephalopathy: Plan: elevated ammonia in the 70s this week clinically improved - much more awake/alert but remains confused cont lactulose BID cont rifaximin BID repeat ammonia today wnl (11) Acidosis: Plan: 2nd to acute kidney injury improved s/p HD x 2 sessions this week BMP am (12) History of fractured vertebra: Plan: lower c-spine and upper t-spine see discussion above in #8 (13) Hx of aortic valve replacement, mechanical: Plan: no longer on coumadin due to prior radiation proctitis, hematuria, and coagulopathy at HIGH RISK of clotting of the valve with subsequent embolic phenomenon, etc. 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 improved on most recent CBC (16) Hypothyroidism: Plan: TSH 5.5 earlier this admission but no changes in synthroid at this time (17) Hypotension: Plan: cirrhosis likely contributing - cont midodrine secondary adrenal insufficiency also at play cont dexamethasone BID but lower to 1mg BID since BPs are stable he is s/p albumin, IV fluids, PRBCs this admission all w/o sustained resolution of his hypotension (18) Adrenal insufficiency: Plan: cosyntropin stim test this admission -- did not pass did not stim to >18 baseline cortisol was low at 3 cont dexamethasone 1mg IV BID per daughter's report had steroids while in [place] critical illness etc all likely to blame Plan Depression with anxiety GERD- PPI updated pt's daughter Gloria at bedside yesterday and again today updated her by phone this evening after [employer] results were + for rhinovirus PT, OT appreciated speech consult appreciated; cleared for diet appreciate nephrology assistance palliative care consult attempted by Dr Jimenes but she did not connect with family likely to take place this week prognosis very poor and guarded Admission and Anticipated Discharge Date Admission Date: May 18, 2024 Subjective severely altered today unable to answer any questions had a severe hacking cough throughout the visit daughter Gloria was present she reported the cough was new today she concurred her father is even more confused today than previous days (and on previous days he was already confused) appetite remains fair at best but closer to poor tele - NSR overnight Review of Systems Review of Systems: Unobtainable due to cognitive status Physical Exam Physical Exam: gen - much more confused/lethargic today; coughing (severe); but no distress mouth - MMM; no thrush ears - severe hearing impairment neck - JVD improved heart - RRR, s1 s2, no murmur; mechanical valve closure sound lungs - rales worse today; hint of wheeze b/l; severe cough abd - probable ascites unchanged, BS+, NT, no HSM ext - pulses 2+ b/l feet, no edema b/l neuro - increased tone x 4 extremities; +ankle clonus vascular - permcath right upper chest clean psych - oriented to person only, lethargic today Results & Data Results & Data Vital Signs (Past 12 Hours) Vital Signs Temp Pulse Pulse Resp BP Pulse Ox O2 Del Method 05/30/24 19:41 36.6 C 78 16 111/62 95 Room Air 05/30/24 15:26 36.5 C 66 18 114/64 99 Room Air 05/30/24 13:01 79 05/30/24 10:58 36.5 C 78 16 116/64 96 Room Air Laboratory Results Laboratory Results - last 48 hr 05/26/24 05/29/24 05/29/24 17:05 16:52 20:04 WBC RBC Hgb Hct MCV MCH MCHC RDW Std Deviation RDW Coeff of Nick Plt Count MPV Sodium Potassium Chloride Carbon Dioxide Anion Gap BUN Creatinine Est Cr Clr Drug Dosing eGFR BUN/Creatinine Ratio Glucose POC Glucose 89 138 H Calcium Phosphorus Ammonia Albumin Urine Color Urine Appearance Urine pH Ur Specific [place] Urine Protein Urine Glucose (UA) Urine Ketones Urine Blood Urine Nitrite Urine Bilirubin Urine Urobilinogen Ur Leukocyte Esterase Urine RBC Urine WBC Ur Epithelial Cells Urine Bacteria Urine Yeast Adenovirus (PCR) B. pertussis DNA (PCR) B.parapertussis DNA PCR C. pneumoniae DNA (PCR) Coronavirus OC43 (PCR) Coronavirus HKU1 (PCR) Coronavirus 229E (PCR) SARS-CoV-2 (PCR) Coronavirus NL63 (PCR) Hep B Core IgM Ab NON-REACTIVE Human Metapneumovir PCR Influenza Type A (PCR) Influenza Type B (PCR) M. pneumoniae (PCR) Parainfluenza 1 (PCR) Parainfluenza 2 (PCR) Parainfluenza 3 (PCR) Parainfluenza 4 (PCR) RSV (PCR) Entero/Rhino (PCR) 05/30/24 05/30/24 05/30/24 07:24 08:23 11:57 WBC RBC Hgb Hct MCV MCH MCHC RDW Std Deviation RDW Coeff of Nick Plt Count MPV Sodium 143 Potassium 3.9 Chloride 106 Carbon Dioxide 26 Anion Gap 11 BUN 43 H D Creatinine 3.65 H D Est Cr Clr Drug Dosing 16.7 eGFR 16.29 BUN/Creatinine Ratio 11.8 Glucose 102 H POC Glucose 101 H 127 H Calcium 8.9 Phosphorus Ammonia 54.0 Albumin Urine Color Urine Appearance Urine pH Ur Specific [place] Urine Protein Urine Glucose (UA) Urine Ketones Urine Blood Urine Nitrite Urine Bilirubin Urine Urobilinogen Ur Leukocyte Esterase Urine RBC Urine WBC Ur Epithelial Cells Urine Bacteria Urine Yeast Adenovirus (PCR) B. pertussis DNA (PCR) B.parapertussis DNA PCR C. pneumoniae DNA (PCR) Coronavirus OC43 (PCR) Coronavirus HKU1 (PCR) Coronavirus 229E (PCR) SARS-CoV-2 (PCR) Coronavirus NL63 (PCR) Hep B Core IgM Ab Human Metapneumovir PCR Influenza Type A (PCR) Influenza Type B (PCR) M. pneumoniae (PCR) Parainfluenza 1 (PCR) Parainfluenza 2 (PCR) Parainfluenza 3 (PCR) Parainfluenza 4 (PCR) RSV (PCR) Entero/Rhino (PCR) 05/30/24 05/30/24 14:24 16:50 WBC RBC Hgb Hct MCV MCH MCHC RDW Std Deviation RDW Coeff of Nick Plt Count MPV Sodium Potassium Chloride Carbon Dioxide Anion Gap BUN Creatinine Est Cr Clr Drug Dosing eGFR BUN/Creatinine Ratio Glucose POC Glucose 102 H Calcium Phosphorus Ammonia Albumin Urine Color Kalpana Urine Appearance Turbid A Urine pH 5.5 Ur Specific [place] 1.025 Urine Protein 3+ H Urine Glucose (UA) Negative Urine Ketones 1+ H Urine Blood 3+ H Urine Nitrite Negative Urine Bilirubin 2+ H Urine Urobilinogen Negative Ur Leukocyte Esterase 3+ H Urine RBC >20 H Urine WBC >50 H Ur Epithelial Cells 0-2 Urine Bacteria None Seen Urine Yeast Present A Adenovirus (PCR) Not Detected B. pertussis DNA (PCR) Not Detected B.parapertussis DNA PCR Not Detected C. pneumoniae DNA (PCR) Not Detected Coronavirus OC43 (PCR) Not Detected Coronavirus HKU1 (PCR) Not Detected Coronavirus 229E (PCR) Not Detected SARS-CoV-2 (PCR) Not Detected Coronavirus NL63 (PCR) Not Detected Hep B Core IgM Ab Human Metapneumovir PCR Not Detected Influenza Type A (PCR) Not Detected Influenza Type B (PCR) Not Detected M. pneumoniae (PCR) Not Detected Parainfluenza 1 (PCR) Not Detected Parainfluenza 2 (PCR) Not Detected Parainfluenza 3 (PCR) Not Detected Parainfluenza 4 (PCR) Not Detected RSV (PCR) Not Detected Entero/Rhino (PCR) DETECTED A PG Care Time/CCT Total # of Minutes Spent Total Time Spent with Patient: Total time spent is greater than 50% in coordination of care (as documented) at patient's floor/unit and/or counseling patient: Coding Level of Care Code 77498 SUB INP/OBS CARE 3/50MIN Diagnoses Rhinovirus infection B34.8 Acute kidney injury N17.9 Acute metabolic encephalopathy G93.41 Urinary tract infection with hematuria N39.0; R31.9 Anemia in chronic kidney disease (CKD) N18.9; D63.1 CHF (congestive heart failure) I50.9 Diabetes mellitus, type 2 E11.9 Cirrhosis K74.60 Muscle tone increased M62.89 Acute hepatic encephalopathy K76.82 Acidosis E87.20 History of fractured vertebra Z87.81 Hx of aortic valve replacement, mechanical Z95.2 Hx of aortic aneurysm Z86.79 Pancytopenia D61.818 Hypothyroidism E03.9 Hypotension I95.9 Hypotension type: unspecified hypotension type Adrenal insufficiency E27.40 (17) Hypotension Hypotension type: unspecified hypotension type Qualified Code(s): I95.9 - Hypotension, unspecified
[2024-05-30] MEDS: ALBUTEROL HFA 8 GM INHALER INH SCH (21:19)
[2024-05-30] MEDS: cefTRIAXone SODIUM 2,000 MG/50 ML BAG IV SCH (21:30)
[2024-05-30] MEDS: BENZONATATE 100 MG CAPSULE PO SCH (21:50)
[2024-05-31 08:00] LABS: Hematocrit (blood only) 29.2 % (42.0-52.0); Hemoglobin 9.1 g/dl (14.0-18.0); Mean Corpuscular Hemoglobin 31.7 pg (25.0-34.0); Mean Corpuscular Hgb Conc 31.2 g/dL (32.0-36.0); Mean Corpuscular Volume 101.7 fL (80.0-100.0); Mean Platelet Volume 10.9 fL (9.4-12.4); Platelet Count 121 K/uL (130-400); RDW Coefficient of Variation 19.9 % (11.5-14.5); RDW Standard Deviation 72.6 fL (36.4-46.3); Red Blood Count 2.87 M/uL (4.70-6.10); White Blood Count 4.78 K/ul (4.8-10.8)
[2024-05-31 08:24] LABS: Albumin Level 3.5 gm/dl (3.4-5.0); BUN Creatinine Ratio 12.5 (10-20); Calcium 8.9 mg/dl (8.6-10.3); Phosphorus 3.8 mg/dl (2.5-4.9); Potassium 4.1 mmol/L (3.5-5.1)
[2024-05-31] MEDS: ALBUT/IPRATROP 3MG/0.5MG NEB 3 ML VIAL NEB SCH (10:29)
--- NOTE | 2024-05-31 12:34 | Nephrology Progress Note ---
Date of Service May 31, 2024 Assessment & Plan (1) Acute kidney injury: Plan: Remains dialysis dependent. Orders for HD today entered into the EHR and reviewed with dialysis rn. Maicol is tolerating treatment well. TDC functioning well. Medications are appropriate for kidney dysfunction. (2) Altered mental status: Plan: Possibly infectious etiology. Ongoing treatment. Hepatitic encephalopathy also being treated. Noted concern for possible PSP. (3) Anemia: Plan: Chronic, stable. Update iron profile and CBC with next blood work. (4) Hematuria: (5) Acute confusion: Admission and Anticipated Discharge Date Admission Date: May 18, 2024 Subjective No acute events overnight. Maicol was seen and evaluated during HD. Patient's history and plan of care were reviewed with Dr. Cooper. Review of Systems Review of Systems: All systems reviewed & are unremarkable except as noted in HPI & below and Unobtainable due to cognitive status Physical Exam Constitutional: well developed, + ill appearing and + frail appearing; no acute distress Eyes: + anicteric sclerae; no conjunctival abn ormality ENMT: Mouth: + dry oral mucous membranes Neck: normal visual inspection and trachea midline IJ TDC Respiratory: normal respiratory effort and + cough Auscultation: lungs clear to auscultation bilaterally and + rhonchi Cardiovascular: Rate/Rhythm: regular rate Heart Sounds: normal S1 and normal S2 Extremities: + pedal edema Musculoskeletal: Extremities: no cyanosis and no clubbing Skin: normal turgor; no lesions Neurologic: Motor/Sensory: no tremor and no asterixis Psychiatric: Orientation: alert and oriented x 3 Results & Data Vital Signs (Past 12 Hours) Vital Signs Temp Pulse Pulse Pulse Resp BP BP 05/31/24 12:00 64 104/52 L 05/31/24 11:30 65 89/46 L 05/31/24 11:00 67 87/57 L 05/31/24 10:30 75 113/63 05/31/24 10:00 71 113/60 05/31/24 09:30 70 114/61 05/31/24 09:20 36.8 C 72 05/31/24 09:00 05/31/24 08:00 36.9 C 73 17 121/54 L 05/31/24 07:29 76 18 05/31/24 05:51 79 05/31/24 03:14 37.2 C 81 18 112/61 Pulse Ox O2 Del Method 05/31/24 12:00 05/31/24 11:30 05/31/24 11:00 05/31/24 10:30 05/31/24 10:00 05/31/24 09:30 05/31/24 09:20 05/31/24 09:00 Room Air 05/31/24 08:00 95 Room Air 05/31/24 07:29 95 Room Air 05/31/24 05:51 05/31/24 03:14 94 Room Air Laboratory Results Laboratory Results - last 24 hr 05/30/24 05/30/24 05/30/24 14:24 16:50 20:12 WBC RBC Hgb Hct MCV MCH MCHC RDW Std Deviation RDW Coeff of Nick Plt Count MPV Sodium Potassium Chloride Carbon Dioxide Anion Gap BUN Creatinine Est Cr Clr Drug Dosing eGFR BUN/Creatinine Ratio Glucose POC Glucose 102 H 173 H Calcium Phosphorus Albumin Urine Color Kalpana Urine Appearance Turbid A Urine pH 5.5 Ur Specific [place] 1.025 Urine Protein 3+ H Urine Glucose (UA) Negative Urine Ketones 1+ H Urine Blood 3+ H Urine Nitrite Negative Urine Bilirubin 2+ H Urine Urobilinogen Negative Ur Leukocyte Esterase 3+ H Urine RBC >20 H Urine WBC >50 H Ur Epithelial Cells 0-2 Urine Bacteria None Seen Urine Yeast Present A Adenovirus (PCR) Not Detected B. pertussis DNA (PCR) Not Detected B.parapertussis DNA PCR Not Detected C. pneumoniae DNA (PCR) Not Detected Coronavirus OC43 (PCR) Not Detected Coronavirus HKU1 (PCR) Not Detected Coronavirus 229E (PCR) Not Detected SARS-CoV-2 (PCR) Not Detected Coronavirus NL63 (PCR) Not Detected Human Metapneumovir PCR Not Detected Influenza Type A (PCR) Not Detected Influenza Type B (PCR) Not Detected M. pneumoniae (PCR) Not Detected Parainfluenza 1 (PCR) Not Detected Parainfluenza 2 (PCR) Not Detected Parainfluenza 3 (PCR) Not Detected Parainfluenza 4 (PCR) Not Detected RSV (PCR) Not Detected Entero/Rhino (PCR) DETECTED A 05/31/24 05/31/24 07:22 08:06 WBC 4.78 L RBC 2.87 L Hgb 9.1 L Hct 29.2 L MCV 101.7 H MCH 31.7 MCHC 31.2 L RDW Std Deviation 72.6 H RDW Coeff of Nick 19.9 H Plt Count 121 L MPV 10.9 Sodium 145 Potassium 4.1 Chloride 109 H Carbon Dioxide 25 Anion Gap 11 BUN 51 H Creatinine 4.07 H D Est Cr Clr Drug Dosing 15.0 eGFR 14.29 BUN/Creatinine Ratio 12.5 Glucose 112 H POC Glucose 116 H Calcium 8.9 Phosphorus 3.8 Albumin 3.5 Urine Color Urine Appearance Urine pH Ur Specific [place] Urine Protein Urine Glucose (UA) Urine Ketones Urine Blood Urine Nitrite Urine Bilirubin Urine Urobilinogen Ur Leukocyte Esterase Urine RBC Urine WBC Ur Epithelial Cells Urine Bacteria Urine Yeast Adenovirus (PCR) B. pertussis DNA (PCR) B.parapertussis DNA PCR C. pneumoniae DNA (PCR) Coronavirus OC43 (PCR) Coronavirus HKU1 (PCR) Coronavirus 229E (PCR) SARS-CoV-2 (PCR) Coronavirus NL63 (PCR) Human Metapneumovir PCR Influenza Type A (PCR) Influenza Type B (PCR) M. pneumoniae (PCR) Parainfluenza 1 (PCR) Parainfluenza 2 (PCR) Parainfluenza 3 (PCR) Parainfluenza 4 (PCR) RSV (PCR) Entero/Rhino (PCR) PG Care Time/CCT Total # of Minutes Spent Total Time Spent with Patient: Total time spent is greater than 50% in coordination of care (as documented) at patient's floor/unit and/or counseling patient: Coding Level of Care Code 01801 SUB INP/OBS CARE 3/50MIN Diagnoses Acute kidney injury N17.9 Altered mental status R41.82 Anemia D64.9 Anemia type: unspecified type Hematuria R31.0 Hematuria type: gross Acute confusion R41.0 (3) Anemia Anemia type: unspecified type Qualified Code(s): D64.9 - Anemia, unspecified (4) Hematuria Hematuria type: gross Qualified Code(s): R31.0 - Gross hematuria
[2024-05-31] MEDS: DAPTOmycin 275 MG in SYRINGE 0 ML IV SCH (17:54)
--- NOTE | 2024-05-31 19:30 | Hospitalist Progress Note ---
Date of Service May 31, 2024 Assessment & Plan (1) Rhinovirus infection: Plan: [employer] + on 05/30 supportive care droplet precautions CXR - pulm edema/ effusions; can't rule out concomitant bacterial process added rocephin 2gm daily for cough - tessalon TID + albuterol QID (2) Urinary tract infection due to Enterococcus: Plan: urine cx growing such add daptomycin IV await final culture (3) Acute kidney injury: Plan: Presented with Cr 2. Baseline Cr earlier this year <2. Over the last few days his creatinine had been getting worse with acidosis & volume overload present. Thus, HD resumed 2 prior HD sessions 3rd session today despite serial sessions he overall has not improved on a global basis - likely because of rhinovirus infection, UTI, and ongoing severe hospital delirium Was hospitalized for nearly a month at [facility] this fall. Started on HD during that hospitalization. Does have right sided IJ permcath in place still. Per records had hepatorenal syndrome while in [facility]. Following his month-long stay at [place] was discharged to [facility]; stayed there for about 3 weeks. At some point either during his stay at [facility] or while at [facility] his HD was discontinued due to some renal recovery. Cont marvin (not to document UOP, but due to urological issues) appreciate nephrology assistance care d/w Dr Lima (4) Acute metabolic encephalopathy: Plan: ongoing SEVERE Likely multifactorial causes -- * hepatic encephalopathy (ammonia level 70s last week --> now improved) * toxic effects from seroquel & benzos (clonazepam) both of which were stopped on 05/22 - unlikely at this point * acidosis could be contributing * disruption of sleep-wake cycle could be contributing * rhinovirus infection * enterococcal UTI * hospital delirium * potentially other factors MRI brain - no acute or subacute CVA; no old CVA; no ICH or mass supportive care treat individual issues (5) Urinary tract infection with hematuria: Plan: present on admission Known, underlying BPH He underwent Rezum procedure on December 05 had urethral stricture which was dilated on February 24, discharged with Marvin catheter Urologist Dr. Soto irrigated and repositioned his marvin catheter earlier this stay. Clots were evacuated. Hematuria resolved, did not require CBI At time of admission presumed to have had UTI, however urine culture from 11/9 with skin marco and urine and blood cultures from 05/18 were negative Was treated with cefepime then ceftriaxone 05/20-05/24 Cont marvin now and keep in at time of discharge [facility] need [facility] post-discharge His BPs have been low thus cont to hold flomax Now with recurrent UTI as in #3 above (6) Anemia in chronic kidney disease (CKD): Plan: transfused 1u PRBCs 05/23 ongoing acceptable H/H (7) CHF (congestive heart failure): Plan: Chronic HFpEF has mechanical AVR but is no longer on chronic anticoagulation because of cirrhosis and problems with bleeding/coagulopathy Echo 02/29/2024 -- EF 50 to 55%, moderate dilation of RV, LA, RA, mechanical aortic valve in place, trace aortic regurgitation, severe tricuspid regurgitation, diastolic dysfunction grade 3 Metoprolol & bumex both on hold due to low BP & VINICIUS He is volume overloaded - likely combination of cirrhosis, VINICIUS, +/- diastolic CHF HD being used for volume control - s/p HD, session #3 today (8) Diabetes mellitus, type 2: Plan: Most recent A1c (02/19/2024) 5.1% Now with hypoglycemia - adrenal insufficiency + poor po intake on many days Hypoglycemia resolved since starting dexamethasone (9) Cirrhosis: Plan: With hepatic encephalopathy, coagulopathy INR 1.4, thrombocytopenia Cont lactulose/rifaximin Cont midodrine TID for low BP No clinical evidence of SBP (no abd pain, etc) (10) Muscle tone increased: Plan: appears to have UMN signs on exam hepatic encephalopathy has been aggressively treated MRI brain w/o pathology MRI c-spine with C5 myelomalacia - contributing?? but no severe spinal stenosis of c-spine but the C5 issue could be contributing had neuro eval last week - PSP?? either way nothing we can do at the present time due to numerous other issues as noted in this progress note (11) Acute hepatic encephalopathy: Plan: elevated ammonia in the 70s this past week clinically improved and ammonia level now wnl --> much more awake/alert but remains severely confused cont lactulose BID cont rifaximin BID (12) Acidosis: Plan: 2nd to acute kidney injury improved s/p HD (13) History of fractured vertebra: Plan: lower c-spine and upper t-spine see discussion above in #10 (14) Hx of aortic valve replacement, mechanical: Plan: no longer on coumadin due to prior radiation proctitis, hematuria, and coagulopathy at HIGH RISK of clotting of the valve with subsequent embolic phenomenon, etc. no CVA seen on MRI Brain this weekend (15) Hx of aortic aneurysm: Plan: with h/o chronic Type A dissection s/p repair [facility] several years ago (2019) (16) Pancytopenia: Plan: presumed 2nd to cirrhosis which is due to [facility] most recent cbc -- cell lines improved/acceptable (17) Hypothyroidism: Plan: TSH 5.5 earlier this admission but no changes in synthroid at this time (18) Hypotension: Plan: cirrhosis likely contributing - cont midodrine secondary adrenal insufficiency also at play cont dexamethasone 1mg BID since starting dexamethasone BPs have been stable he is s/p albumin, IV fluids, PRBCs this admission all w/o sustained resolution of his hypotension (19) Adrenal insufficiency: Plan: cosyntropin stim test this admission -- did not pass did not stim to >18 baseline cortisol was low at 3 cont dexamethasone 1mg IV BID per daughter's report had steroids while in [place] critical illness etc all likely to blame Plan Depression with anxiety GERD- PPI updated pt's daughter Gloria at bedside multiple times by phone or in person this week (Gloria's cell - [phone]) updated at bedside today PT, OT appreciated speech consult appreciated appreciate nephrology assistance palliative care consult appreciated - per their documentation pt's family not ready to transition to anything palliative/etc prognosis guarded Admission and Anticipated Discharge Date Admission Date: May 18, 2024 Subjective tele overnight wnl I saw him in the HD unit - he would not wake up when I spoke with him I saw him later in the day - /daughter were both present at bedside he was awake but only said a few things still very confused I discussed current care plan, current issues (including new dx of rhinovirus + UTI), etc. answered questions Review of Systems Review of Systems: Unobtainable due to cognitive status Physical Exam Physical Exam: exam performed during my visit while he was in the dialysis unit: gen - lethargic, did not wake to his name being called ; coughing at times neck - JVD present (mild) heart - RRR, s1 s2, no murmur; mechanical valve closure sound lungs - b/l rales worse today; hint of wheeze b/l; severe cough abd - distended (probable ascites), BS+, NT, no HSM ext - pulses 2+ b/l feet, no edema b/l neuro - increased tone x 4 extremities; +ankle clonus vascular - permcath right upper chest clean Results & Data Results & Data Vital Signs (Past 12 Hours) Vital Signs Temp Pulse Pulse Pulse Resp BP BP 05/31/24 19:15 80 18 05/31/24 16:06 36.8 C 75 17 109/64 05/31/24 15:29 75 14 05/31/24 13:29 71 05/31/24 12:53 36.4 C L 75 19 122/61 05/31/24 12:30 36.7 C 59 L 97/52 L 05/31/24 12:00 64 104/52 L 05/31/24 11:30 65 89/46 L 05/31/24 11:00 67 87/57 L 05/31/24 10:30 75 113/63 05/31/24 10:00 71 113/60 05/31/24 09:30 70 114/61 05/31/24 09:20 36.8 C 72 05/31/24 09:00 05/31/24 08:00 36.9 C 73 17 121/54 L Pulse Ox O2 Del Method FiO2 05/31/24 19:15 94 Room Air 05/31/24 16:06 98 Room Air 05/31/24 15:29 94 Room Air 21 05/31/24 13:29 05/31/24 12:53 94 Room Air 05/31/24 12:30 05/31/24 12:00 05/31/24 11:30 05/31/24 11:00 05/31/24 10:30 05/31/24 10:00 05/31/24 09:30 05/31/24 09:20 05/31/24 09:00 Room Air 05/31/24 08:00 95 Room Air Laboratory Results Laboratory Results - last 48 hr 05/30/24 05/30/24 05/30/24 07:24 08:23 11:57 WBC RBC Hgb Hct MCV MCH MCHC RDW Std Deviation RDW Coeff of Nick Plt Count MPV Sodium 143 Potassium 3.9 Chloride 106 Carbon Dioxide 26 Anion Gap 11 BUN 43 H D Creatinine 3.65 H D Est Cr Clr Drug Dosing 16.7 eGFR 16.29 BUN/Creatinine Ratio 11.8 Glucose 102 H POC Glucose 101 H 127 H Calcium 8.9 Phosphorus Ammonia 54.0 Albumin Urine Color Urine Appearance Urine pH Ur Specific [place] Urine Protein Urine Glucose (UA) Urine Ketones Urine Blood Urine Nitrite Urine Bilirubin Urine Urobilinogen Ur Leukocyte Esterase Urine RBC Urine WBC Ur Epithelial Cells Urine Bacteria Urine Yeast Adenovirus (PCR) B. pertussis DNA (PCR) B.parapertussis DNA PCR C. pneumoniae DNA (PCR) Coronavirus OC43 (PCR) Coronavirus HKU1 (PCR) Coronavirus 229E (PCR) SARS-CoV-2 (PCR) Coronavirus NL63 (PCR) Human Metapneumovir PCR Influenza Type A (PCR) Influenza Type B (PCR) M. pneumoniae (PCR) Parainfluenza 1 (PCR) Parainfluenza 2 (PCR) Parainfluenza 3 (PCR) Parainfluenza 4 (PCR) RSV (PCR) Entero/Rhino (PCR) 05/30/24 05/30/24 05/30/24 14:24 16:50 20:12 WBC RBC Hgb Hct MCV MCH MCHC RDW Std Deviation RDW Coeff of Nick Plt Count MPV Sodium Potassium Chloride Carbon Dioxide Anion Gap BUN Creatinine Est Cr Clr Drug Dosing eGFR BUN/Creatinine Ratio Glucose POC Glucose 102 H 173 H Calcium Phosphorus Ammonia Albumin Urine Color [place] Urine Appearance Turbid A Urine pH 5.5 Ur Specific [place] 1.025 Urine Protein 3+ H Urine Glucose (UA) Negative Urine Ketones 1+ H Urine Blood 3+ H Urine Nitrite Negative Urine Bilirubin 2+ H Urine Urobilinogen Negative Ur Leukocyte Esterase 3+ H Urine RBC >20 H Urine WBC >50 H Ur Epithelial Cells 0-2 Urine Bacteria None Seen Urine Yeast Present A Adenovirus (PCR) Not Detected B. pertussis DNA (PCR) Not Detected B.parapertussis DNA PCR Not Detected C. pneumoniae DNA (PCR) Not Detected Coronavirus OC43 (PCR) Not Detected Coronavirus HKU1 (PCR) Not Detected Coronavirus 229E (PCR) Not Detected SARS-CoV-2 (PCR) Not Detected Coronavirus NL63 (PCR) Not Detected Human Metapneumovir PCR Not Detected Influenza Type A (PCR) Not Detected Influenza Type B (PCR) Not Detected M. pneumoniae (PCR) Not Detected Parainfluenza 1 (PCR) Not Detected Parainfluenza 2 (PCR) Not Detected Parainfluenza 3 (PCR) Not Detected Parainfluenza 4 (PCR) Not Detected RSV (PCR) Not Detected Entero/Rhino (PCR) DETECTED A 05/31/24 05/31/24 05/31/24 07:22 08:06 14:26 WBC 4.78 L RBC 2.87 L Hgb 9.1 L Hct 29.2 L MCV 101.7 H MCH 31.7 MCHC 31.2 L RDW Std Deviation 72.6 H RDW Coeff of Nick 19.9 H Plt Count 121 L MPV 10.9 Sodium 145 Potassium 4.1 Chloride 109 H Carbon Dioxide 25 Anion Gap 11 BUN 51 H Creatinine 4.07 H D Est Cr Clr Drug Dosing 15.0 eGFR 14.29 BUN/Creatinine Ratio 12.5 Glucose 112 H POC Glucose 116 H 137 H Calcium 8.9 Phosphorus 3.8 Ammonia Albumin 3.5 Urine Color Urine Appearance Urine pH Ur Specific [place] Urine Protein Urine Glucose (UA) Urine Ketones Urine Blood Urine Nitrite Urine Bilirubin Urine Urobilinogen Ur Leukocyte Esterase Urine RBC Urine WBC Ur Epithelial Cells Urine Bacteria Urine Yeast Adenovirus (PCR) B. pertussis DNA (PCR) B.parapertussis DNA PCR C. pneumoniae DNA (PCR) Coronavirus OC43 (PCR) Coronavirus HKU1 (PCR) Coronavirus 229E (PCR) SARS-CoV-2 (PCR) Coronavirus NL63 (PCR) Human Metapneumovir PCR Influenza Type A (PCR) Influenza Type B (PCR) M. pneumoniae (PCR) Parainfluenza 1 (PCR) Parainfluenza 2 (PCR) Parainfluenza 3 (PCR) Parainfluenza 4 (PCR) RSV (PCR) Entero/Rhino (PCR) 05/31/24 17:20 WBC RBC Hgb Hct MCV MCH MCHC RDW Std Deviation RDW Coeff of Nick Plt Count MPV Sodium Potassium Chloride Carbon Dioxide Anion Gap BUN Creatinine Est Cr Clr Drug Dosing eGFR BUN/Creatinine Ratio Glucose POC Glucose 125 H Calcium Phosphorus Ammonia Albumin Urine Color Urine Appearance Urine pH Ur Specific [place] Urine Protein Urine Glucose (UA) Urine Ketones Urine Blood Urine Nitrite Urine Bilirubin Urine Urobilinogen Ur Leukocyte Esterase Urine RBC Urine WBC Ur Epithelial Cells Urine Bacteria Urine Yeast Adenovirus (PCR) B. pertussis DNA (PCR) B.parapertussis DNA PCR C. pneumoniae DNA (PCR) Coronavirus OC43 (PCR) Coronavirus HKU1 (PCR) Coronavirus 229E (PCR) SARS-CoV-2 (PCR) Coronavirus NL63 (PCR) Human Metapneumovir PCR Influenza Type A (PCR) Influenza Type B (PCR) M. pneumoniae (PCR) Parainfluenza 1 (PCR) Parainfluenza 2 (PCR) Parainfluenza 3 (PCR) Parainfluenza 4 (PCR) RSV (PCR) Entero/Rhino (PCR) urine cx - enterococcus PG Care Time/CCT Total # of Minutes Spent Total Time Spent with Patient: Total time spent is greater than 50% in coordination of care (as documented) at patient's floor/unit and/or counseling patient: Coding Level of Care Code 15772 SUB INP/OBS CARE 3/50MIN Diagnoses Rhinovirus infection B34.8 Urinary tract infection due to Enterococcus N39.0; B95.2 Acute kidney injury N17.9 Acute metabolic encephalopathy G93.41 Urinary tract infection with hematuria N39.0; R31.9 Anemia in chronic kidney disease (CKD) N18.9; D63.1 CHF (congestive heart failure) I50.9 Diabetes mellitus, type 2 E11.9 Cirrhosis K74.60 Muscle tone increased M62.89 Acute hepatic encephalopathy K76.82 Acidosis E87.20 History of fractured vertebra Z87.81 Hx of aortic valve replacement, mechanical Z95.2 Hx of aortic aneurysm Z86.79 Pancytopenia D61.818 Hypothyroidism E03.9 Hypotension I95.9 Hypotension type: unspecified hypotension type Adrenal insufficiency E27.40 (18) Hypotension Hypotension type: unspecified hypotension type Qualified Code(s): I95.9 - Hypotension, unspecified
[2024-05-31] MEDS: MELATONIN 3 MG TAB PO STA (22:21)
--- NOTE | 2024-05-31 22:44 | Palliative Care Progress Note ---
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 Goals of care discussion at bedside with pt's and daughter. Pt was present but non-communicative. Pt's shared that she feels her appears comfortable and she feels that he is doing "much better" than when he came in. Discussed the patient's many chronic illnesses and the progressive and debilitating nature of cirrhosis and dementia. Discussed the typical pathway and progression of cirrhosis and dementia. Pt's shared that despite needing HD the pt still has many good days and they would like to see him transferred back to [facility]. She shared concern that he will now need to stay longer to be treated for rhinovirus. She and her daughter both reinforced wishes for DNR/DNI but encouraged that all life prolonging therapies continue at this time. Will continue to follow for ongoing GOC discussions. Admission and Anticipated Discharge Date Admission Date: May 18, 2024 Subjective Assessed pt at bedside, he was awake and alert but noncommunicative. He was in NAD on RA. He did respond negatively when asked if he had pain, but offered no other verbal response. His and daughter were at bedside. Review of Systems Review of Systems: TAMRA due to mental status. Physical Exam Physical Exam: gen - awake, confused NAD mouth - Moist mucus membranes ears - hearing impairment heart - RRR, s1 s2, no murmur; trace edema lungs - rales b/l bases; + cough abd - soft/distended, BS+, NT ext - distal pulses 2+, trace edema b/l neuro - increased tone x 4 extremities; vascular - permcath right upper chest psych - oriented to person only Results & Data Vital Signs (Past 12 Hours) Vital Signs Temp Pulse Pulse Pulse Resp BP BP 05/31/24 20:55 37.5 C 81 20 98/56 L 05/31/24 20:30 05/31/24 19:15 80 18 05/31/24 16:06 36.8 C 75 17 109/64 05/31/24 15:29 75 14 05/31/24 13:29 71 05/31/24 12:53 36.4 C L 75 19 122/61 05/31/24 12:30 36.7 C 59 L 97/52 L 05/31/24 12:00 64 104/52 L 05/31/24 11:30 65 89/46 L 05/31/24 11:00 67 87/57 L 05/31/24 10:30 75 113/63 Pulse Ox O2 Del Method FiO2 05/31/24 20:55 94 Room Air 05/31/24 20:30 Room Air 05/31/24 19:15 94 Room Air 05/31/24 16:06 98 Room Air 05/31/24 15:29 94 Room Air 21 05/31/24 13:29 05/31/24 12:53 94 Room Air 05/31/24 12:30 05/31/24 12:00 05/31/24 11:30 05/31/24 11:00 05/31/24 10:30 Laboratory Results Abnormal lab results 05/31/24 05/31/24 05/31/24 Range/Units 07:22 08:06 14:26 WBC 4.78 L (4.8-10.8) K/ul RBC 2.87 L (4.70-6.10) M/uL Hgb 9.1 L (14.0-18.0) g/dl Hct 29.2 L (42.0-52.0) % MCV 101.7 H (80.0-100.0) fL MCHC 31.2 L (32.0-36.0) g/dL RDW Std Deviation 72.6 H (36.4-46.3) fL RDW Coeff of Nick 19.9 H (11.5-14.5) % Plt Count 121 L (130-400) K/uL Chloride 109 H (98-107) mmol/L BUN 51 H (6-23) mg/dl Creatinine 4.07 H D (0.6-1.4) mg/dl Glucose 112 H (70-99(Fasting)) mg/dl POC Glucose 116 H 137 H (70-99) mg/dl 05/31/24 05/31/24 Range/Units 17:20 20:16 WBC (4.8-10.8) K/ul RBC (4.70-6.10) M/uL Hgb (14.0-18.0) g/dl Hct (42.0-52.0) % MCV (80.0-100.0) fL MCHC (32.0-36.0) g/dL RDW Std Deviation (36.4-46.3) fL RDW Coeff of Nick (11.5-14.5) % Plt Count (130-400) K/uL Chloride (98-107) mmol/L BUN (6-23) mg/dl Creatinine (0.6-1.4) mg/dl Glucose (70-99(Fasting)) mg/dl POC Glucose 125 H 170 H (70-99) mg/dl Diagnostic Findings Abdomen/Pelvis CT 05/18/24 16:14 INDICATION: Decreased urine output. Altered mental status COMPARISON: CT from 08/08/2023. TECHNIQUE: Axial CT images of the abdomen and pelvis were obtained without IV contrast administration. Coronal and sagittal reformations were reviewed. FINDINGS: Moderate volume right and small volume left pleural effusions with underlying atelectasis. Cardiomegaly. Heterogeneous/nodular appearance of the liver likely related to or cirrhosis. The gallbladder is surgically absent. Splenomegaly. The pancreas and adrenal glands appear unremarkable. Bilateral renal cysts, exophytic) with calcifications appear similar. Nonobstructing small left renal calculi. No hydronephrosis. No evidence of bowel obstruction/colitis/appendicitis. No free air. No drainable fluid collection. Anasarca. Atheromatous plaquing of the abdominal aorta without evidence of aneurysm. Urinary bladder wall thickening. Duran catheter in the urinary bladder. Bilateral inguinal hernias containing fat and small amount of ascites on the left. Degenerative changes in the spine. No acute osseous abnormality evident. IMPRESSION: 1. Moderate volume right and small volume left pleural effusions with underlying atelectasis. 2. Small volume ascites. Anasarca. 3. Cirrhosis. 4. Urinary bladder wall thickening. Flow catheter in the urinary bladder. 5. Renal cysts and renal calculi again noted. No hydronephrosis. Electronically signed by Jacobo Cano 05-18-2024 5:[address] 05/18/24 16:14 INDICATION: Altered mental status. COMPARISON: CT from 08/31/2023 TECHNIQUE: Axial CT images of the head were obtained without IV contrast. Coronal and sagittal reformations were reviewed. FINDINGS: Soria-white differentiation is relatively preserved. No mass, mass effect or midline shift. Chronic ischemic white matter changes. Basal ganglia calcifications. No evidence of acute large territorial infarction or acute intracranial hemorrhage. Ventricles appear normal in size. Basal cisterns are patent. No depressed calvarial fracture. IMPRESSION: No acute intracranial process. Electronically signed by Jacobo Cano 05-18-2024 5:11 PM KUB X-Ray 05/26/24 12:33 KUB HISTORY: Acute abdominal pain with distention abd distension, nausea COMPARISON: CT abdomen and pelvis 05/18/2024 FINDINGS: Right upper quadrant surgical clips are redemonstrated. Cardiomegaly with median sternotomy. Nonobstructive bowel gas pattern. Mild gaseous distention of the large bowel. No renal calculi. No ureteral calculi. No pneumoperitoneum or pneumatosis. No fracture. IMPRESSION: Nonobstructive bowel gas pattern. ACT 112: Negative or not required by law. The above report was generated using voice recognition software. It may contain grammatical, syntax or spelling errors. Electronically signed by: Paul Reyna M.D. 05/26/2024 1:22 PM Videofluoroscopic Swallow 05/28/24 09:30 MODIFIED BARIUM SWALLOW CLINICAL HISTORY: dysphagia; h/o aspiration COMPARISON STUDY: Modified barium swallow August 11, 2023. FLUOROSCOPY TIME: 2.58 minutes. ka,r: 13.6 mGy. TECHNIQUE: A modified barium swallow was performed in conjunction with Speech Pathology. The patient ingested varying consistencies of barium containing material. Video fluoroscopy was performed. FINDINGS: No aspiration was identified with thin liquids by spoon, cup or straw. There was no aspiration with nectar thick liquids, pudding or cracker and pudding consistencies. Prolonged mastication with cracker and pudding consistency was noted. Epiglottic inversion was normal. Laryngeal elevation was within normal limits. IMPRESSION: 1. Intact swallowing mechanism. No tracheal aspiration. 2. Full recommendations by Speech pathology to follow. ACT 112: Negative or not required by law. Electronically signed by: Atif Langston M.D. 05/28/2024 10:26 AM Brain MRI 05/29/24 07:00 EXAM: MR brain wo con CLINICAL HISTORY: altered mental status, Hx fractured vertebra in lower c-spine and upper t-spine around 4 years ago, questioning cord impingement or brain lesions, PT is on dialysis, evaluate for stroke also, has been off Coumadin for a few months, PT unable to lay flat for scan, head had to be propped up quite a bit to get PT scanned, best obtainable images for PT''s condition, PT unable to fully cooperate, screened PT through his Lakia Jarquin and daughter Kristin Jarquin, delay in getting PT scanned due to PT being in dialysis for 3 hours TECHNIQUE: MRI of the brain was performed without contrast with multiplanar sequences obtained. Images were sent through PACS for diagnostic interpretation. COMPARISON: Comparison is made with prior imaging studies dated 09/04/2023. FINDINGS: Brain Parenchyma: Periventricular deep white matter signal alteration is likely related to small vessel disease. No evidence of acute infarction or hemorrhage. Normal soria-white matter differentiation. No mass lesions or focal cortical abnormalities were identified. Ventricles and Sulci: Normal size and configuration of the lateral ventricles, third ventricle, and fourth ventricle. No evidence of hydrocephalus or ventriculomegaly. Sylvian fissures, sulci, and cisterns are within normal limits. Posterior Fossa: The cerebellum and brainstem appear normal without evidence of mass lesions or signal abnormalities. Cranial Nerves: Normal course and appearance of cranial nerves identified. Vessels: No evidence of vascular malformations or aneurysms. Intracranial arteries and veins appear normal without evidence of stenosis or occlusion. Orbits and Skull Base: Orbits and skull base structures are normal without evidence of abnormalities. IMPRESSION: MRI of the brain: 1. Periventricular deep white matter signal alteration is likely related to small vessel disease ([place] 2). 2. No evidence of acute infarction or hemorrhage. 3. No interval changes. Electronically signed by Jeffery Saleh 05-29-2024 4:33 PM Cervical Spine MRI 05/29/24 07:00 EXAM: MR cervical spine wo con CLINICAL HISTORY: altered mental status, Hx fractured vertebra in lower c-spine and upper t-spine around 4 years ago, questioning cord impingement or brain lesions, PT is on dialysis, evaluate for stroke also, has been off Coumadin for a few months, PT unable to lay flat for scan, head had to be propped up quite a bit to get PT scanned, best obtainable images for PT''s condition, PT unable to fully cooperate, screened PT through his Lakia Jarquin and daughter Kristin Jarquin, delay in getting PT scanned due to PT being in dialysis for [address] [facility] TECHNIQUE: An MRI of the cervical spine was performed without contrast administration. Sequences obtained include sagittal T1-weighted, T2-weighted, STIR (Short Tau Inversion Recovery), and axial T2-weighted sequences. Images were sent through PACS for diagnostic interpretation. COMPARISON: No previous studies are available for comparison. FINDINGS: Vertebral Alignment: Small old fracture of the anterior superior wedge of the C5 vertebra and an old injury of the right facetal joint at the level of C4 and C5. First-degree spondylolithesis of C4 over C5 vertebrae. Tiny focal of the high signal of cervical spinal cord C5 vertebra at its left side likely small myelomalacia. Degenerative changes of the spines with osteophyte formation. Intervertebral discs demonstrate degenerative changes. [id number] analysis: C2-C3: There is no significant disc pathology. Normal morphology of the ligamentum flava. No arthropathy of the uncovertebral and zygapophyseal joints. No significant spinal canal stenosis C3-C4: There is no significant disc pathology. Normal morphology of the ligamentum flava. No arthropathy of the uncovertebral and zygapophyseal joints. No significant spinal canal stenosis C4-C5: There is degenerative changes with arthropathy of the uncovertebral, zygapophyseal joints and unilateral facetal injury causing pressure upon the neural foramen more on the right side No spinal canal stenosis C5-C6: There is no significant disc pathology. Normal morphology of the ligamentum flava. No arthropathy of the uncovertebral and zygapophyseal joints. No significant spinal canal stenosis C6-C7: There is no significant disc pathology. Normal morphology of the ligamentum flava. No arthropathy of the uncovertebral and zygapophyseal joints. No significant spinal canal stenosis C7-T1: There is no significant disc pathology. Normal morphology of the ligamentum flava. No arthropathy of the uncovertebral and zygapophyseal joints. No significant spinal canal stenosis Soft Tissues: Paraspinal soft tissues showed mild atrophic changes in the muscles. IMPRESSION: 1. Small old fracture of the anterior superior wedge of the C5 vertebra and old injury of the right facetal joint at the level of C4 and C5 suggesting unilateral facetal injury. First-degree spondylolithesis of C4 over C5 vertebrae. 2. Tiny focal of the high signal of cervical spinal cord C5 vertebra at its left side likely small myelomalcia. 3. Degenerative changes of the spines and intervertebral discs more at the C4-5 level together with arthropathy of the uncovertebral, zygapophyseal joints and facetal injury causing pressure upon the right neural foramen. No spinal canal stenosis Electronically signed by Jeffery Saleh 05-29-2024 5:10 PM Chest X-Ray 05/30/24 16:11 EXAM: Radiograph of the Chest 1 View INDICATION: CHF versus pneumonia. TECHNIQUE: Frontal view of the chest. COMPARISON: 05/26/2024 FINDINGS: Lungs and pleural spaces: There is increased consolidation in the left lung base and stable right basilar consolidation. Small right pleural effusion slightly increased layering more posteriorly. No pneumothorax. Increased underlying pulmonary vascular congestion. Heart: Stable cardiomegaly. Mediastinum: Normal contour. Bones/joints: No fracture, erosion or dislocation. Soft tissues: No abnormality noted. No radiopaque foreign body noted. Tubes, lines and devices: Right internal jugular central venous catheter tip in the distal superior vena cava. Upper abdomen: No abnormality noted. IMPRESSION: 1. Increased small bilateral pleural effusions with worsening left and stable right basilar airspace disease which could reflect pneumonia or compressive atelectasis. 2. Increased component of underlying pulmonary vascular congestion. ACT 112: Negative or not required by law. Electronically signed by Tamara Valentine 05-30-2024 5:17 PM Medications Administered Current Inpatient Medications Acetaminophen (Acetaminophen 325 Mg Tab) 650 mg PO Q4H PRN PRN Reason: pain/fever Stop: 06/17/24 22:15 Last Admin: 05/31/24 22:24 Dose: 650 mg Albuterol (Albut/Ipratrop 3mg/0.5mg Neb 3 Ml Vial) 3 ml NEB QIDR DANIEL; Protocol Stop: 06/30/24 10:59 Last Admin: 05/31/24 19:14 Dose: 3 ml Benzonatate (Benzonatate 100 Mg Capsule) 100 mg PO TID [facility] Stop: 06/29/24 20:59 Last Admin: 05/31/24 21:11 Dose: 100 mg Dextrose (Dextrose 50% 50 Ml Syringe) 25 - 50 ml IV UD PRN; Protocol PRN Reason: Hypoglycemia Protocol Stop: 06/17/24 22:15 Glucagon (Glucagon For Inj 1 Mg Vial) 1 mg SQ UD PRN; Protocol PRN Reason: Hypoglycemia Protocol Stop: 06/17/24 22:15 Glucose (Glucose 40% Gel 15 Gm Tube) 15 - 30 gm PO UD PRN; Protocol PRN Reason: Hypoglycemia Protocol Stop: 06/17/24 22:15 Glucose (Glucose 10 Tab/Tube) 4 - 8 tab PO UD PRN; Protocol PRN Reason: Hypoglycemia Protocol Stop: 06/17/24 22:15 Dexamethasone 1 mg/ Syringe 0.25 mls @ 1 mls/min IV Q12H DANIEL Stop: 06/28/24 15:59 Last Admin: 05/31/24 16:22 Dose: 1 mls/min Ceftriaxone Sodium (Rocephin) 2,000 mg in 50 mls @ 100 mls/hr IV Q24H DANIEL Stop: 06/01/24 19:59 Last Infusion: 05/31/24 20:21 Dose: Infused Daptomycin 275 mg/ Syringe 5.5 mls @ 2.75 mls/min IV Q48H [facility]; Protocol Stop: 06/10/24 17:59 Last Admin: 05/31/24 17:54 Dose: 2.75 mls/min Lactulose (Lactulose Syrup 30 Gm/45 Ml Udp) 30 gm PO BID DANIEL Stop: 06/27/24 08:59 Last Admin: 05/31/24 21:12 Dose: 30 gm Levothyroxine Sodium (Levothyroxine Sodium 75 Mcg Tablet) 75 mcg PO DAILYBB DANIEL Stop: 06/18/24 06:29 Last Admin: 05/31/24 04:22 Dose: 75 mcg Melatonin (Melatonin 3 Mg Tab) 6 mg PO HS [facility] Stop: 07/01/24 20:59 Midodrine (Midodrine Hcl 10 Mg Tab) 10 mg PO TID@0800,1200,1700 DANIEL Stop: 06/22/24 11:59 Last Admin: 05/31/24 16:22 Dose: 10 mg Miscellaneous (Carbohydrates For Hypoglycemia ) 15 - 30 gm PO UD PRN PRN Reason: Hypoglycemia Protocol Stop: 06/17/24 22:15 Ondansetron HCl (Ondansetron Inj 2 Mg/Ml 2 Ml Vial) 4 mg IV Q6H PRN PRN Reason: Nausea Stop: 06/17/24 22:15 Last Admin: 05/26/24 18:10 Dose: 4 mg Pantoprazole Sodium (Pantoprazole 40 Mg Tab) 40 mg PO BID DANIEL Stop: 06/18/24 08:59 Last Admin: 05/31/24 21:12 Dose: 40 mg Polyethylene Glycol (Polyethylene (Miralax) 17 Gm Pack) 17 gm PO DAILY PRN PRN Reason: Constipation Stop: 06/17/24 22:15 Rifaximin (Rifaximin 550 Mg Tablet) 550 mg PO BID DANIEL Stop: 06/18/24 08:59 Last Admin: 05/31/24 21:11 Dose: 550 mg Sertraline HCl (Sertraline Hcl 100 Mg Tablet) 100 mg PO HS DANIEL Stop: 06/18/24 20:59 Last Admin: 05/31/24 21:12 Dose: 100 mg Tamsulosin HCl (Tamsulosin Hcl 0.4 Mg Cap) 0.8 mg PO QPM DANIEL Stop: 06/18/24 20:59 Last Admin: 05/25/24 20:07 Dose: 0.8 mg PG Care Time/CCT Total # of Minutes Spent Total Time Spent with Patient: Total time spent is greater than 50% in coordination of care (as documented) at patient's floor/unit and/or counseling patient: Coding [place] [address] SUB INP/OBS CARE 2/35MIN Patient Type Established Medical Decision Making Moderate Complexity Diagnoses Palliative care by specialist Z51.5 Discussion about advance care planning held with family member Z71.0 Altered mental status R41.82 Dementia F03.90 Generalized weakness R53.1
[2024-06-01 09:07] LABS: Albumin Level 3.3 gm/dl (3.4-5.0); Calcium 8.6 mg/dl (8.6-10.3)
[2024-06-01 09:12] LABS: BUN Creatinine Ratio 10.6 (10-20); Creatinine Clr Calc Pharmacy 17.9 ml/min; Phosphorus 3.1 mg/dl (2.5-4.9)
--- NOTE | 2024-06-01 12:41 | Nephrology Progress Note ---
Date of Service June 01, 2024 Assessment & Plan (1) Acute kidney injury: Plan: Remains dialysis dependent. Completed treatment yesterday with adequate UF and clearance. Next HD planned for tomorrow. Maicol is tolerating treatment well. TDC functioning well. Medications are appropriate for kidney dysfunction. (2) Altered mental status: Plan: Possibly infectious etiology. Ongoing treatment. Hepatitic encephalopathy also being treated. Noted concern for possible PSP. (3) Anemia: Plan: Chronic, stable. Update iron profile and CBC with next blood work. (4) Hematuria: (5) Acute confusion: Admission and Anticipated Discharge Date Admission Date: May 18, 2024 Subjective No acute events overnight. Maicol tolerated HD well yesterday. No complications with treatment. Review of Systems Review of Systems: Unobtainable due to cognitive status Physical Exam Constitutional: well developed and + ill appearing; no acute distress Eyes: + anicteric sclerae; no conjunctival abn ormality ENMT: Mouth: + dry oral mucous membranes Neck: normal visual inspection and trachea midline Respiratory: normal respiratory effort Auscultation: lungs clear to auscultation bilaterally and + rhonchi Cardiovascular: Rate/Rhythm: regular rate Heart Sounds: normal S1 and normal S2 Extremities: + pedal edema Musculoskeletal: Extremities: no cyanosis and no clubbing Skin: normal turgor; no lesions Neurologic: Motor/Sensory: no tremor and no asterixis Psychiatric: Orientation: alert and oriented x 3 Results & Data Vital Signs (Past 12 Hours) Vital Signs Temp Pulse Pulse Resp BP Pulse Ox O2 Del Method 06/01/24 11:35 61 15 92 Room Air 06/01/24 11:31 36.9 C 81 20 116/65 94 Room Air 06/01/24 08:15 Room Air 06/01/24 08:14 37.1 C 80 20 116/61 96 Room Air 06/01/24 07:00 83 06/01/24 06:00 77 18 94 Room Air 06/01/24 04:00 37.1 C 86 20 116/70 92 Room Air FiO2 06/01/24 11:35 21 06/01/24 11:31 06/01/24 08:15 06/01/24 08:14 06/01/24 07:00 06/01/24 06:00 06/01/24 04:00 Laboratory Results Laboratory Results - last 24 hr 05/31/24 05/31/24 05/31/24 14:26 17:20 20:16 Sodium Potassium Chloride Carbon Dioxide Anion Gap BUN Creatinine Est Cr Clr Drug Dosing eGFR BUN/Creatinine Ratio Glucose POC Glucose 137 H 125 H 170 H Calcium Phosphorus Albumin 06/01/24 06/01/24 06/01/24 07:39 07:58 12:01 Sodium 141 Potassium 4.0 Chloride 107 Carbon Dioxide 22 Anion Gap 12 H BUN 36 H Creatinine 3.40 H D Est Cr Clr Drug Dosing 17.9 eGFR 17.74 BUN/Creatinine Ratio 10.6 Glucose 124 H POC Glucose 122 H 119 H Calcium 8.6 Phosphorus 3.1 Albumin 3.3 L PG Care Time/CCT Total # of Minutes Spent Total Time Spent with Patient: Total time spent is greater than 50% in coordination of care (as documented) at patient's floor/unit and/or counseling patient: Coding Level of Care Code 19297 SUB INP/OBS CARE 3/50MIN Diagnoses Acute kidney injury N17.9 Altered mental status R41.82 Anemia D64.9 Anemia type: unspecified type Hematuria R31.0 Hematuria type: gross Acute confusion R41.0 (3) Anemia Anemia type: unspecified type Qualified Code(s): D64.9 - Anemia, unspecified (4) Hematuria Hematuria type: gross Qualified Code(s): R31.0 - Gross hematuria
--- NOTE | 2024-06-01 17:14 | Hospitalist Progress Note ---
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, currently requiring hemodialysis Cont marvin (not to document UOP, but due to urological issues) chemistry panel is unremarkable today potassium is 4.0, creatinine 3.4 (4) Acute metabolic encephalopathy: Plan: ongoing SEVERE Likely multifactorial causes -- * hepatic encephalopathy (ammonia level 70s last week --> now improved) * toxic effects from seroquel & benzos (clonazepam) both of which were stopped on 05/22 - unlikely at this point * acidosis could be contributing * disruption of sleep-wake cycle could be contributing * rhinovirus infection * enterococcal UTI * hospital delirium * potentially other factors MRI brain - no acute or subacute CVA; no old CVA; no ICH or mass supportive care treat individual issues (5) Urinary tract infection with hematuria: Plan: present on admission Known, underlying BPH He underwent Rezum procedure on December 05 had urethral stricture which was dilated on February 24, discharged with Marvin catheter Urologist Dr. Soto irrigated and repositioned his marvin catheter earlier this stay. Clots were evacuated. Hematuria resolved, did not require CBI At time of admission presumed to have had UTI, however urine culture from 05/15 with skin marco and urine and blood cultures from 05/18 were negative Was treated with cefepime then ceftriaxone 05/20-05/24 Cont marvin now and keep in at time of discharge Will need [facility] Urology f/u post-discharge His BPs have been low thus cont to hold flomax Now with recurrent UTI as in #3 above (6) Anemia in chronic kidney disease (CKD): Plan: transfused 1u PRBCs 05/23 ongoing acceptable H/H (7) CHF (congestive heart failure): Plan: Chronic HFpEF has mechanical AVR but is no longer on chronic anticoagulation because of cirrhosis and problems with bleeding/coagulopathy Echo 02/29/2024 -- EF 50 to 55%, moderate dilation of RV, LA, RA, mechanical aortic valve in place, trace aortic regurgitation, severe tricuspid regurgitation, diastolic dysfunction grade 3 Metoprolol & bumex both on hold due to low BP & VINICIUS He is volume overloaded - likely combination of cirrhosis, VINICIUS, +/- diastolic CHF HD being used for volume control (8) Diabetes mellitus, type 2: Plan: Most recent A1c (02/19/2024) 5.1% Now with hypoglycemia - adrenal insufficiency + poor po intake on many days Hypoglycemia resolved since starting dexamethasone. (9) Cirrhosis: Plan: With hepatic encephalopathy, coagulopathy INR 1.4, thrombocytopenia Cont lactulose/rifaximin Cont midodrine TID for low BP No clinical evidence of SBP (no abd pain, etc) (10) Muscle tone increased: Plan: appears to have UMN signs on exam hepatic encephalopathy has been aggressively treated quetiapine was stopped MRI brain w/o pathology MRI c-spine with C5 myelomalacia - contributing?? but no severe spinal stenosis of c-spine but the C5 issue could be contributing had neuro eval last week - potentially progressive supranuclear palsy - treatment for this is supportive continue PT and OT (11) Acute hepatic encephalopathy: Plan: acute on chronic hepatic encephalopathy improved, ammonia normalized cont lactulose BID cont rifaximin BID (12) Acidosis: Plan: 2nd to acute kidney injury improved s/p HD (13) History of fractured vertebra: Plan: lower c-spine and upper t-spine see discussion above in #10 (14) Hx of aortic valve replacement, mechanical: Plan: no longer on coumadin due to prior radiation proctitis, hematuria, and coagulopathy at HIGH RISK of clotting of the valve with subsequent embolic phenomenon, etc. no CVA seen on MRI Brain this weekend (15) Hx of aortic aneurysm: Plan: with h/o chronic Type A dissection s/p repair [facility] several years ago (2019) (16) Pancytopenia: Plan: presumed 2nd to cirrhosis which is due to [facility] most recent cbc -- cell lines improved/acceptable (17) Hypothyroidism: Plan: TSH 5.5 earlier this admission but no changes in synthroid at this time (18) Hypotension: Plan: cirrhosis likely contributing - cont midodrine secondary adrenal insufficiency also at play. cont dexamethasone 1mg BID. Change to po since starting dexamethasone BPs have been stable he is s/p albumin, IV fluids, PRBCs this admission all w/o sustained resolution of his hypotension (19) Adrenal insufficiency: Plan: per daughter's report had steroids while in [place] cos[facility] stim test this admission -- did not pass did not stim to >18 baseline cortisol was low at 3 hard to interpret cortisol in cirrhosis because of low protein binding globulin, however, may be relatively improved on steroids cont dexamethasone change to po Plan Depression with anxiety GERD- PPI palliative care consult appreciated - continue current interventions, DNR/DNI prognosis guarded Admission and Anticipated Discharge Date Admission Date: May 18, 2024 Subjective Papito is awake sitting in bed, he says he is okay denies pain or shortness of breath, he is not very verbal similar to last week Physical Exam 2 Physical Exam: PHYSICAL EXAMINATION Last 24h vital signs reviewed, see documentation in flowsheet General: comfortable appearing, no distress, awake and alert sitting in bed HEENT: Normocephalic, atraumatic, pupils round and equal, sclerae anicteric, no conjunctival injection, moist mucus membranes Lungs: Normal respiratory effort. Clear to auscultation bilaterally. No RRW Heart: Regular rate and rhythm, no murmurs. No JVD Abdomen: Soft, nontender, nondistended. Bowel sounds present. Extremities: Warm, dry, well-perfused. anasarca improved compared to last week Neuro: Alert and oriented x self cannot tell me where he is or why he is here perhaps said dialysis but was very garbled, very hard of hearing, face symmetric, bradykinesia, no resting tremor observed Psych: Normal affect and behavior Results & Data Results & Data Vital Signs (Past 12 Hours) Vital Signs Temp Pulse Pulse Resp BP Pulse Ox O2 Del Method 06/01/24 15:26 65 16 93 Room Air 06/01/24 15:22 97.9 F 83 20 105/51 L 94 Room Air 06/01/24 14:00 89 06/01/24 11:35 61 15 92 Room Air 06/01/24 11:31 98.4 F 81 20 116/65 94 Room Air 06/01/24 08:15 Room Air 06/01/24 08:14 98.8 F 80 20 116/61 96 Room Air 06/01/24 07:00 83 06/01/24 06:00 77 18 94 Room Air FiO2 06/01/24 15:26 06/01/24 15:22 06/01/24 14:00 06/01/24 11:35 21 06/01/24 11:31 06/01/24 08:15 06/01/24 08:14 06/01/24 07:00 06/01/24 06:00 Laboratory Results 05/31/24 07:22 06/01/24 07:39 PG Care Time/CCT Total # of Minutes Spent Total Time Spent with Patient: Total time spent is greater than 50% in coordination of care (as documented) at patient's floor/unit and/or counseling patient: Coding Level of Care Code 17923 SUB INP/OBS CARE 2/35MIN Diagnoses Rhinovirus infection B34.8 Urinary tract infection due to Enterococcus N39.0; B95.2 Acute kidney injury N17.9 Acute metabolic encephalopathy G93.41 Urinary tract infection with hematuria N39.0; R31.9 Anemia in chronic kidney disease (CKD) N18.9; D63.1 CHF (congestive heart failure) I50.9 Diabetes mellitus, type 2 E11.9 Cirrhosis K74.60 Muscle tone increased M62.89 Acute hepatic encephalopathy K76.82 Acidosis E87.20 History of fractured vertebra Z87.81 Hx of aortic valve replacement, mechanical Z95.2 Hx of aortic aneurysm Z86.79 Pancytopenia D61.818 Hypothyroidism E03.9 Hypotension I95.9 Hypotension type: unspecified hypotension type Adrenal insufficiency E27.40 (18) Hypotension Hypotension type: unspecified hypotension type Qualified Code(s): I95.9 - Hypotension, unspecified
[2024-06-01] MEDS: MELATONIN 3 MG TAB PO SCH (20:27)
[2024-06-01] MEDS: dexAMETHasone 1 MG TAB PO SCH (20:28)
[2024-06-01 22:01] LABS: Calcium 8.8 mg/dl (8.6-10.3); Magnesium 1.9 mg/dl (1.7-2.4); Potassium 4.1 mmol/L (3.5-5.1)
[2024-06-01] MEDS: MAGNESIUM SULFATE / D5W 1 GM/100 ML BAG IV ONE (23:15)
[2024-06-02 07:32] LABS: Hematocrit (blood only) 29.4 % (42.0-52.0); Mean Corpuscular Hemoglobin 31.3 pg (25.0-34.0); Mean Corpuscular Hgb Conc 30.6 g/dL (32.0-36.0); Mean Corpuscular Volume 102.1 fL (80.0-100.0); Mean Platelet Volume 10.8 fL (9.4-12.4); Platelet Count 87 K/uL (130-400); RDW Coefficient of Variation 20.6 % (11.5-14.5); Red Blood Count 2.88 M/uL (4.70-6.10); White Blood Count 6.82 K/ul (4.8-10.8)
[2024-06-02 07:47] LABS: Albumin Level 3.6 gm/dl (3.4-5.0); BUN Creatinine Ratio 13.9 (10-20); Calcium 8.9 mg/dl (8.6-10.3); Creatinine Clr Calc Pharmacy 18.4 ml/min; Phosphorus 3.6 mg/dl (2.5-4.9); Potassium 4.2 mmol/L (3.5-5.1)
[2024-06-02 08:07] LABS: Ferritin 446.5 ng/ml (8-388)
--- NOTE | 2024-06-02 14:59 | Hospitalist Progress Note ---
Date of Service June 02, 2024 Assessment & Plan (1) Acute kidney injury: Plan: 79-year-old man with complex underlying medical problems who was originally admitted with hematuria. He underwent Rezum procedure on December 05, had urethral stricture which was dilated on February 24, discharged with Marvin catheter. Urology consulted this admission for hematuria. Hematuria has resolved. 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 Mental status has remained poor, likely has underlying dementia with superimposed delirium. 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 He also has a mechanical aortic valve but anticoagulation was discontinued about a month ago when he presented with INR of 10 on warfarin, has been having bleeding problems and significant anemia, his INR remains elevated due to his cirrhosis. He was treated for hepatorenal failure about a month ago at another hospital, was at [facility] on dialysis through mid and still has HD line in place. He was discharged home from [facility] 3 days DECK CADET. This admission he has had worsening renal function creatinine was 1.7s on admission and ajay, required reinitiation of hemodialysis. 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 Discuss with Dr. Soto whether appropriate to have voiding trial soon -chemistry panel today with K 4.2, BUN/Cr 46/3.3 (2) Rhinovirus infection: Plan: BioFire + on 05/30 supportive care droplet precautions CXR - pulm edema/ effusions and some bibasilar consolidation for cough - tessalon TID + albuterol QID -procalcitonin low on 06/01 (0.29), remains on room air and afebrile -stopped ceftriaxone and watch off antibiotics, no clear evidence of pneumonia (3) Urinary tract infection due to Enterococcus: Plan: VRE Catheter associated UTI, continue daptomycin, started 05/31 - plan 7 days (4) Acute metabolic encephalopathy: Plan: ongoing SEVERE multifactorial causes -- * hepatic encephalopathy (ammonia level 70s last week --> now improved) * toxic effects from seroquel & benzos (clonazepam) both of which were stopped on 05/22 * acidosis could be contributing * disruption of sleep-wake cycle could be contributing * rhinovirus infection * enterococcal UTI * hospital delirium * potentially other factors MRI brain - no acute or subacute CVA; no old CVA; no ICH or mass supportive care treat individual issues (5) Urinary tract infection with hematuria: Plan: present on admission Known, underlying BPH He underwent Rezum procedure on December 05 had urethral stricture which was dilated on February 24, discharged with Marvin catheter Urologist Dr. Soto irrigated and repositioned his marvin catheter earlier this stay. Clots were evacuated. Hematuria resolved, did not require CBI At time of admission presumed to have had UTI, however urine culture from 05/15 with skin marco and urine and blood cultures from 05/18 were negative Was treated with cefepime then ceftriaxone 05/20-05/24 Now with recurrent UTI as in #3 above (6) Anemia in chronic kidney disease (CKD): Plan: transfused 1u PRBCs 05/23 ongoing acceptable H/H (7) CHF (congestive heart failure): Plan: Chronic HFpEF has mechanical AVR but is no longer on chronic anticoagulation because of cirrhosis and problems with bleeding/coagulopathy Echo 02/29/2024 -- EF 50 to 55%, moderate dilation of RV, LA, RA, mechanical aortic valve in place, trace aortic regurgitation, severe tricuspid regurgitation, diastolic dysfunction grade 3 Metoprolol & bumex both on hold due to low BP & VINICIUS He is volume overloaded - combination of cirrhosis, VINICIUS, +/- diastolic CHF HD being used for volume control (8) Diabetes mellitus, type 2: Plan: Most recent A1c (02/19/2024) 5.1% Now with hypoglycemia - adrenal insufficiency + poor po intake on many days Hypoglycemia resolved since starting dexamethasone. (9) Cirrhosis: Plan: With hepatic encephalopathy, coagulopathy INR 1.4, thrombocytopenia Cont lactulose/rifaximin Cont midodrine TID for low BP No clinical evidence of SBP (no abd pain, etc) (10) Muscle tone increased: Plan: appears to have UMN signs on exam hepatic encephalopathy has been aggressively treated quetiapine was stopped MRI brain w/o pathology MRI c-spine with C5 myelomalacia - contributing? but no severe spinal stenosis of c-spine but the C5 issue could be contributing had neuro eval last week - potentially progressive supranuclear palsy - treatment for this is supportive continue PT and OT (11) Acute hepatic encephalopathy: Plan: acute on chronic hepatic encephalopathy improved, ammonia normalized cont lactulose - not having daily stools, increased to tid cont rifaximin BID (12) Acidosis: Plan: 2nd to acute kidney injury improved s/p HD (13) History of fractured vertebra: Plan: lower c-spine and upper t-spine see discussion above in #10 (14) Hx of aortic valve replacement, mechanical: Plan: no longer on coumadin due to prior radiation proctitis, hematuria, and coagulopathy at HIGH RISK of clotting of the valve with subsequent embolic phenomenon, etc. no CVA seen on MRI Brain this weekend (15) Hx of aortic aneurysm: Plan: with h/o chronic Type A dissection s/p repair [facility] several years ago (2019) (16) Pancytopenia: Plan: presumed 2nd to cirrhosis which is due to [facility] most recent cbc -- cell lines improved/acceptable (17) Hypothyroidism: Plan: TSH 5.5 earlier this admission but no changes in synthroid at this time (18) Adrenal insufficiency: Plan: per daughter's report had steroids while in [place] cosyntropin stim test this admission -- did not pass - did not stim to >18, baseline cortisol was low at 3 hard to interpret cortisol in cirrhosis because of low protein binding globulin, however, may be relatively improved on steroids especially blood pressure and BG cont dexamethasone changed to po, can transition to hydrocortisone and wean Plan Sacral decubitus ulcer present on admission - has sacral, ischial wounds, DTI - continue wound care Depression with anxiety GERD- PPI palliative care consult appreciated - continue current interventions, DNR/DNI I left voicemail with his today and updated his daughter by phone Admission and Anticipated Discharge Date Admission Date: May 18, 2024 Subjective 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 Coarse breath sounds anteriorly without wheezing Heart: Regular rate and rhythm, no murmurs. No JVD Abdomen: Soft, nontender, nondistended. Bowel sounds present. Extremities: Warm, dry, well-perfused. anasarca improved compared to last week, still some peripheral edema Neuro: Alert and only oriented to self speech fairly garbled today, very hard of hearing, face symmetric, bradykinesia, no resting tremor observed Psych: Normal affect and behavior Results & Data Results & Data Vital Signs (Past 12 Hours) Vital Signs Temp Pulse Pulse Pulse Resp BP BP 06/02/24 12:00 85 130/74 06/02/24 11:30 72 128/69 06/02/24 11:00 83 125/70 06/02/24 10:30 84 127/75 06/02/24 10:00 82 120/59 L 06/02/24 09:33 65 117/60 06/02/24 09:29 98.6 F 74 06/02/24 08:01 99.5 F 88 20 117/55 L 06/02/24 08:00 06/02/24 07:17 84 18 06/02/24 06:55 87 06/02/24 03:29 98.1 F 89 18 136/70 Pulse Ox O2 Del Method 06/02/24 12:00 06/02/24 11:30 06/02/24 11:00 06/02/24 10:30 06/02/24 10:00 06/02/24 09:33 06/02/24 09:29 06/02/24 08:01 94 Room Air 06/02/24 08:00 Room Air 06/02/24 07:17 91 Room Air 06/02/24 06:55 06/02/24 03:29 90 Room Air Laboratory Results 06/02/24 07:16 06/02/24 07:16 PG Care Time/CCT Total # of Minutes Spent Total Time Spent with Patient: Total time spent is greater than 50% in coordination of care (as documented) at patient's floor/unit and/or counseling patient: Coding Level of Care Code 75118 SUB INP/OBS CARE 2/35MIN Diagnoses Acute kidney injury N17.9 Rhinovirus infection B34.8 Urinary tract infection due to Enterococcus N39.0; B95.2 Acute metabolic encephalopathy G93.41 Urinary tract infection with hematuria N39.0; R31.9 Anemia in chronic kidney disease (CKD) N18.9; D63.1 CHF (congestive heart failure) I50.9 Diabetes mellitus, type 2 E11.9 Cirrhosis K74.60 Muscle tone increased M62.89 Acute hepatic encephalopathy K76.82 Acidosis E87.20 History of fractured vertebra Z87.81 Hx of aortic valve replacement, mechanical Z95.2 Hx of aortic aneurysm Z86.79 Pancytopenia D61.818 Hypothyroidism E03.9 Adrenal insufficiency E27.40
[2024-06-02] MEDS: LACTULOSE SYRUP 30 GM/45 ML UDP PO SCH ×2 (15:26→20:05)
--- NOTE | 2024-06-02 16:31 | Nephrology Progress Note ---
Date of Service June 02, 2024 Assessment & Plan (1) Acute kidney injury: Plan: Remains dialysis dependent. Orders for HD today were entered into the EHR and reviewed with the vehicle sales professional. Maicol is tolerating treatment well. TDC functioning well. Medications are appropriate for kidney dysfunction. (2) Anemia: Plan: Chronic, stable. LANDEN therapy will be administered with HD. Tsat acceptable. Admission and Anticipated Discharge Date Admission Date: May 18, 2024 Subjective No acute events overnight. Maicol was seen and evaluated prior to and during HD this AM. He tolerated HD reasonably well but remains significantly confused and intermittently agitated during dialysis. Review of Systems Review of Systems: Unobtainable due to cognitive status Physical Exam Constitutional: well developed, + altered mental status and + frail appearing; no acute distress Eyes: + anicteric sclerae; no conjunctival abn ormality ENMT: Mouth: + dry oral mucous membranes Neck: normal visual inspection and trachea midline Respiratory: normal respiratory effort and + cough Auscultation: lungs clear to auscultation bilaterally Cardiovascular: Rate/Rhythm: regular rate Heart Sounds: normal S1 and normal S2 Extremities: + pedal edema Musculoskeletal: Extremities: no cyanosis and no clubbing Skin: normal turgor; no lesions Neurologic: Motor/Sensory: no tremor and no asterixis Psychiatric: Orientation: alert; + not oriented x 3 Results & Data Vital Signs (Past 12 Hours) Vital Signs Temp Pulse Pulse Pulse Resp BP BP 06/02/24 15:29 85 18 06/02/24 15:26 36.6 C 91 H 18 134/71 06/02/24 15:00 85 06/02/24 13:10 36.8 C 80 106/61 06/02/24 12:35 80 112/61 06/02/24 12:30 81 111/55 L 06/02/24 12:00 85 130/74 06/02/24 11:30 72 128/69 06/02/24 11:00 83 125/70 06/02/24 10:30 84 127/75 06/02/24 10:00 82 120/59 L 06/02/24 09:33 65 117/60 06/02/24 09:29 37.0 C 74 06/02/24 08:01 37.5 C 88 20 117/55 L 06/02/24 08:00 06/02/24 07:17 84 18 06/02/24 06:55 87 Pulse Ox O2 Del Method 06/02/24 15:29 94 Room Air 06/02/24 15:26 93 Room Air 06/02/24 15:00 06/02/24 13:10 06/02/24 12:35 06/02/24 12:30 06/02/24 12:00 06/02/24 11:30 06/02/24 11:00 06/02/24 10:30 06/02/24 10:00 06/02/24 09:33 06/02/24 09:29 06/02/24 08:01 94 Room Air 06/02/24 08:00 Room Air 06/02/24 07:17 91 Room Air 06/02/24 06:55 Laboratory Results Laboratory Results - last 24 hr 06/01/24 06/01/24 06/01/24 16:37 20:17 21:30 WBC RBC Hgb Hct MCV MCH MCHC RDW Std Deviation RDW Coeff of Nick Plt Count MPV Sodium 141 Potassium 4.1 Chloride 108 H Carbon Dioxide 23 Anion Gap 10 BUN 44 H Creatinine 3.39 H Est Cr Clr Drug Dosing 18.0 eGFR 17.80 BUN/Creatinine Ratio 13.0 Glucose 187 H POC Glucose 126 H 198 H Calcium 8.8 Phosphorus Magnesium 1.9 Iron TIBC Unsaturated IBC Transferrin % Sat Ferritin Albumin Procalcitonin 06/02/24 06/02/24 07:16 08:10 WBC 6.82 RBC 2.88 L Hgb 9.0 L Hct 29.4 L MCV 102.1 H MCH 31.3 MCHC 30.6 L RDW Std Deviation 75.0 H RDW Coeff of Nick 20.6 H Plt Count 87 L MPV 10.8 Sodium 142 Potassium 4.2 Chloride 109 H Carbon Dioxide 22 Anion Gap 11 BUN 46 H Creatinine 3.30 H Est Cr Clr Drug Dosing 18.4 eGFR 18.39 BUN/Creatinine Ratio 13.9 Glucose 117 H POC Glucose 115 H Calcium 8.9 Phosphorus 3.6 Magnesium Iron 33 L TIBC 136 L Unsaturated IBC 103 L Transferrin % Sat 24 Ferritin 446.5 H Albumin 3.6 Procalcitonin 0.29 PG Care Time/CCT Total # of Minutes Spent Total Time Spent with Patient: Total time spent is greater than 50% in coordination of care (as documented) at patient's floor/unit and/or counseling patient: Coding Level of Care Code 19969 SUB INP/OBS CARE 50MIN Diagnoses Acute kidney injury N17.9 Anemia D64.9 Anemia type: unspecified type (2) Anemia Anemia type: unspecified type Qualified Code(s): D64.9 - Anemia, unspecified
--- NOTE | 2024-06-03 07:18 | XRay Report ---
EXAM: XR chest 1V portable CLINICAL HISTORY: increased oxygen requirement brm TECHNIQUE: X-ray chest Frontal projection COMPARISON: None. FINDINGS: Right-sided permacath seen with its distal tip noted sinoatrial junction. There are multifocal areas of airspace shadowing seen involving bilateral lung benites. There is interstitial thickening also noted in the bilateral lung field. Right lung volume is reduced. Right costophrenic is not appreciated. There is leveling/layering noted in the visualized right lower lung could be secondary to underlying pleural effusion however concomitant and other pathology cannot be excluded would recommend CT. The left costophrenic angle is clear Sternotomy sutures are seen Cardiac size cannot be accurately commented on in this view IMPRESSION: 1. Overall imaging findings could be secondary to developing pulmonary edema with possible superimposed pulmonary infection. CT is advised for further evaluation 2. Leveling/layering noted in the visualized right lower lung could be secondary to underlying pleural effusion, however concomitant other pathology cannot be excluded would recommend CT. [facility]'s ER was called at at 6:10 AM MUSEUM OR ZOO DIRECTOR, 06/03/2024 and (Juan Wright was informed about the presence of important medical findings. Electronically signed by Toni Whatley 06-03-2024 07:18 AM
--- NOTE | 2024-06-03 07:57 | Hospitalist Progress Note ---
Date of Service June 03, 2024 Assessment & Plan (1) Hypoxia: Plan: Increased hypoxia with worsened pulmonary infiltrates since yesterday Reviewed CXR films from this AM and most recent 05/30. Pulmonary edema, increase in bibasilar infiltrates - possibly layering effusion vs consolidation overall similar to prior film but worsened by my interpretation of the films Ddx - could be worsening pulmonary edema and pleural effusions, potential for multifocal aspiration pneumonia -has been on broad spectrum ABX for possible pneumonia - through 06/02 -obtain CBC c diff, BMP, procal - reviewed, no leukocytosis, procal remains low -ordered chest CT noncontrast as recommended by radiologist to evaluate further - remarkable for: "Moderate to large right and small left layering pleural effusions. No pneumothorax. There is extensive groundglass infiltrate in both lungs most notably involving the left upper lobe. There is dependent consolidation along both pleural effusions right greater than left. There is bilateral lower lobe airway plugging left greater than right. " Mainly seems to be pulmonary edema and large right pleural effusion. May benefit from thoracentesis but not easily available over holiday weekend. Groundglass could be viral pneumonia related to rhinovirus/enterovirus. Bacterial pneumonia is difficult to exclude, however, lack of improvement on antibiotics and low procalcitonins argue against this. -broader antibiotics - pip-tazo x 5 days. (avoid cefepime with renal failure and persistently altered mental status), hold off for right now -continue dialysis -consider R thoracentesis -try for better pulmonary toilet - mucinex, acapella, IS - though won't be able to cooperate well (2) Acute kidney injury: Plan: 79-year-old man with complex underlying medical problems who was originally admitted with hematuria. He underwent Rezum procedure on December 05, had urethral stricture which was dilated on February 24, discharged with Marvin catheter. Urology consulted this admission for hematuria. Hematuria has resolved. 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 Mental status has remained poor, likely has underlying dementia with superimposed delirium. 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 He also has a mechanical aortic valve but anticoagulation was discontinued about a month ago when he presented with INR of 10 on warfarin, has been having bleeding problems and significant anemia, his INR remains elevated due to his cirrhosis. He was treated for hepatorenal failure about a month ago at another hospital, was at [facility] on dialysis through mid-April and still has HD line in place. He was discharged home from [facility] 3 days [employer]. This admission he has had worsening renal function creatinine was 1.7s on admission and ajay, required reinitiation of hemodialysis. 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 Discuss with Dr. Soto whether appropriate to have voiding trial soon -chemistry panel unremarkable today, electrolytes normal BUN/Cr remain elevated (3) Rhinovirus infection: Plan: BioFire + on 05/30 supportive care droplet precautions see above (4) Urinary tract infection due to Enterococcus: Plan: VRE Catheter associated UTI, continue daptomycin, started 05/31 - plan 7 days (5) Acute metabolic encephalopathy: Plan: ongoing severe hypoactive delirium, mental status much worse than recent baseline though suspect underlying neurodegenerative disorder multifactorial causes -- * hepatic encephalopathy (ammonia level 70s last week --> now improved). having several BMs/day on current lactulose * toxic effects from seroquel & benzos (clonazepam) both of which were stopped on 05/22 * acidosis could be contributing * disruption of sleep-wake cycle could be contributing * rhinovirus infection * enterococcal UTI * hospital delirium * potentially other factors MRI brain - no acute or subacute CVA; no old CVA; no ICH or mass supportive care treat individual issues I have not seen any improvement compared to ten days ago, if anything he is less verbal with me (6) Urinary tract infection with hematuria: Plan: present on admission Known, underlying BPH He underwent Rezum procedure on December 05 had urethral stricture which was dilated on February 24, discharged with Marvin catheter Urologist Dr. Soto irrigated and repositioned his marvin catheter earlier this stay. Clots were evacuated. Hematuria resolved, did not require CBI At time of admission presumed to have had UTI, however urine culture from 05/15 with skin marco and urine and blood cultures from 05/18 were negative Was treated with cefepime then ceftriaxone 05/20-05/24 Now with recurrent UTI as in #3 above (7) Anemia in chronic kidney disease (CKD): Plan: transfused 1u PRBCs 05/23 ongoing acceptable H/H (8) CHF (congestive heart failure): Plan: Chronic HFpEF has mechanical AVR but is no longer on chronic anticoagulation because of cirrhosis and problems with bleeding/coagulopathy Echo 02/29/2024 -- EF 50 to 55%, moderate dilation of RV, LA, RA, mechanical aortic valve in place, trace aortic regurgitation, severe tricuspid regurgitation, diastolic dysfunction grade 3 Metoprolol & bumex both on hold due to low BP & VINICIUS He is volume overloaded - combination of cirrhosis, VINICIUS, +/- diastolic CHF HD being used for volume control (9) Diabetes mellitus, type 2: Plan: Most recent A1c (02/19/2024) 5.1% Now with hypoglycemia - adrenal insufficiency + poor po intake on many days Hypoglycemia resolved since starting dexamethasone. (10) Cirrhosis: Plan: With hepatic encephalopathy, coagulopathy INR 1.4, thrombocytopenia Cont lactulose/rifaximin Cont midodrine TID for low BP Small ascites on chest CT 06/03 (11) Muscle tone increased: Plan: appears to have UMN signs on exam hepatic encephalopathy has been aggressively treated quetiapine was stopped MRI brain w/o pathology MRI c-spine with C5 myelomalacia - contributing? but no severe spinal stenosis of c-spine but the C5 issue could be contributing had neuro eval last week - potentially progressive supranuclear palsy - treatment for this is supportive continue PT and OT (12) Acute hepatic encephalopathy: Plan: acute on chronic hepatic encephalopathy improved, ammonia normalized cont lactulose - correction, having at least 2-3 stools/d on bid lactulose cont rifaximin BID (13) Acidosis: Plan: 2nd to acute kidney injury improved s/p HD (14) History of fractured vertebra: Plan: lower c-spine and upper t-spine see discussion above in #10 (15) Hx of aortic valve replacement, mechanical: Plan: no longer on coumadin due to prior radiation proctitis, hematuria, and coagulopathy at HIGH RISK of clotting of the valve with subsequent embolic phenomenon, etc. no CVA seen on MRI Brain this weekend -consider trying to restart coumadin (16) Hx of aortic aneurysm: Plan: with h/o chronic Type A dissection s/p repair [facility] several years ago (2019) (17) Pancytopenia: Plan: presumed 2nd to cirrhosis which is due to [facility] most recent cbc -- cell lines improved/acceptable (18) Hypothyroidism: Plan: TSH 5.5 earlier this admission but no changes in synthroid at this time (19) Adrenal insufficiency: Plan: per daughter's report had steroids while in [place] [facility] stim test this admission -- did not pass - did not stim to >18, baseline cortisol was low at 3 hard to interpret cortisol in cirrhosis because of low protein binding globulin, however, may be relatively improved on steroids especially blood pressure and BG cont dexamethasone changed to po, transition to hydrocortisone and wean Plan Sacral decubitus ulcer present on admission - has sacral, ischial wounds, DTI - continue wound care Depression with anxiety GERD- PPI palliative care consult appreciated - continue current interventions, DNR/DNI I left voicemail with his and updated his daughter by phone 06/02 Admission and Anticipated Discharge Date Admission Date: May 18, 2024 Subjective increased hypoxia last night went from RA to 3L supp O2 CXR with worsening Remains poorly interactive but awake Extemely [place] and verbal responses garbled Denied pain Acknowledged shortness of breath Physical Exam 2 Physical Exam: PHYSICAL EXAMINATION Last 24h vital signs reviewed, see documentation in flowsheet General: awake sitting in bed, has been crying out repetitively but does not appear to be in distress and denied pain HEENT: Normocephalic, atraumatic, pupils round and equal, sclerae anicteric, no conjunctival injection, moist mucus membranes Lungs: Nonlabored, bilateral coarse breath sounds and crackles anteriorly Heart: Regular rate and rhythm, no murmurs Abdomen: Soft, nontender, nondistended. Bowel sounds present Extremities: Warm, dry, well-perfused. anasarca improved compared to last week, still some peripheral edema Neuro: Alert and only oriented to self speech remains garbled today, very hard of hearing, face symmetric, bradykinesia, no resting tremor observed Psych: Normal affect and behavior Results & Data Results & Data Vital Signs (Past 12 Hours) Vital Signs Temp Pulse Pulse Resp BP Pulse Ox O2 Del Method 06/03/24 07:20 99.3 F 100 H 18 121/70 91 Nasal Cannula 06/03/24 07:18 100 H 24 91 Nasal Cannula 06/03/24 07:00 98 H 06/03/24 05:43 97.7 F 99 H 22 91 Nasal Cannula 06/03/24 03:54 99.0 F 105 H 18 114/62 90 Room Air 06/02/24 23:10 Room Air 06/02/24 22:00 99.9 F H 92 H 18 96/52 L 91 Room Air 06/02/24 21:42 96 H O2 Flow Rate 06/03/24 07:20 3 06/03/24 07:18 3 06/03/24 07:00 06/03/24 05:43 3 06/03/24 03:54 06/02/24 23:10 06/02/24 22:00 06/02/24 21:42 Laboratory Results 06/03/24 08:08 06/03/24 08:08 Diagnostic Findings Chest X-Ray 06/03/24 06:15 EXAM: XR chest 1V portable CLINICAL HISTORY: increased oxygen requirement brm TECHNIQUE: X-ray chest Frontal projection COMPARISON: None. FINDINGS: Right-sided permacath seen with its distal tip noted sinoatrial junction. There are multifocal areas of airspace shadowing seen involving bilateral lung benites. There is interstitial thickening also noted in the bilateral lung field. Right lung volume is reduced. Right costophrenic is not appreciated. There is leveling/layering noted in the visualized right lower lung could be secondary to underlying pleural effusion however concomitant and other pathology cannot be excluded would recommend CT. The left costophrenic angle is clear Sternotomy sutures are seen Cardiac size cannot be accurately commented on in this view IMPRESSION: 1. Overall imaging findings could be secondary to developing pulmonary edema with possible superimposed pulmonary infection. CT is advised for further evaluation 2. Leveling/layering noted in the visualized right lower lung could be secondary to underlying pleural effusion, however concomitant other pathology cannot be excluded would recommend CT. [facility]'s ER was called at at 6:10 AM ASSISTANT PRESSMAN, 06/03/2024 and (Juan Wright was informed about the presence of important medical findings. Electronically signed by Toni Whatley 06-03-2024 07:[address] 06/03/24 07:48 EXAM: CT Chest Without Intravenous Contrast INDICATION: Pleural effusions. TECHNIQUE: Axial computed tomography images of the chest without intravenous contrast. Sagittal and coronal reformatted images were created and reviewed. This CT exam was performed using one or more of the following dose reduction techniques: automated exposure control, adjustment of the mA and/or kV according to patient size, and/or use of iterative reconstruction technique. COMPARISON: Chest x-ray the same day FINDINGS: Limitations: None. Lungs and pleural spaces: Moderate to large right and small left layering pleural effusions. No pneumothorax. There is extensive groundglass infiltrate in both lungs most notably involving the left upper lobe. There is dependent consolidation along both pleural effusions right greater than left. There is bilateral lower lobe airway plugging left greater than right. Heart: Cardiomegaly. Dense coronary calcification. There is dense calcification of the mitral and aortic valves. No pericardial effusion. Thyroid: No abnormality noted. Bones/joints: Degenerative changes noted throughout the spine. No acute osseous abnormality seen. Soft tissues: No significant abnormality noted. Vasculature: No abnormality noted. No thoracic aortic aneurysm. Lymph nodes: No enlarged lymph nodes. Intraperitoneal space: Upper abdominal ascitic fluid noted. Tubes, lines and devices: Right internal jugular central venous catheter tip in the distal superior vena cava. IMPRESSION: 1. Moderate to large right and small left layering pleural effusions. 2. Extensive groundglass infiltrates in both lungs. Consider pneumonia including viral etiologies and CHF. There is compressive atelectasis along both pleural effusions. 3. Upper abdominal ascites. ACT 112: Negative or not required by law. Electronically signed by Tamara Valentine 06-03-2024 09:07 AM PG Care Time/CCT Total # of Minutes Spent Total Time Spent with Patient: Total time spent is greater than 50% in coordination of care (as documented) at patient's floor/unit and/or counseling patient: Coding Level of Care Code 28245 SUB INP/OBS CARE 3/50MIN Diagnoses Hypoxia R09.02 Acute kidney injury N17.9 Rhinovirus infection B34.8 Urinary tract infection due to Enterococcus N39.0; B95.2 Acute metabolic encephalopathy G93.41 Urinary tract infection with hematuria N39.0; R31.9 Anemia in chronic kidney disease (CKD) N18.9; D63.1 CHF (congestive heart failure) I50.9 Diabetes mellitus, type 2 E11.9 Cirrhosis K74.60 Muscle tone increased M62.89 Acute hepatic encephalopathy K76.82 Acidosis E87.20 History of fractured vertebra Z87.81 Hx of aortic valve replacement, mechanical Z95.2 Hx of aortic aneurysm Z86.79 Pancytopenia D61.818 Hypothyroidism E03.9 Adrenal insufficiency E27.40
[2024-06-03 08:34] LABS: Eosinophils # (auto) 0.04 K/uL (0.00-0.50); Eosinophils % (auto) 0.4 %; Hematocrit (blood only) 29.9 % (42.0-52.0); Hemoglobin 9.6 g/dl (14.0-18.0); Immature Granulocytes # (auto) 0.06 K/uL (0.01-0.20); Immature Granulocytes % (auto) 0.6 %; Lymphocytes # (auto) 0.55 K/uL (1.20-3.40); Lymphocytes % (auto) 5.7 %; Mean Corpuscular Hemoglobin 32.7 pg (25.0-34.0); Mean Corpuscular Hgb Conc 32.1 g/dL (32.0-36.0); Mean Corpuscular Volume 101.7 fL (80.0-100.0); Mean Platelet Volume 11.3 fL (9.4-12.4); Monocytes % (auto) 8.3 %; Neutrophils # (auto) 8.16 K/uL (1.40-6.50); Platelet Count 94 K/uL (130-400); RDW Coefficient of Variation 20.5 % (11.5-14.5); Red Blood Count 2.94 M/uL (4.70-6.10); White Blood Count 9.61 K/ul (4.8-10.8)
[2024-06-03 08:44] LABS: BUN Creatinine Ratio 16.7 (10-20); Creatinine Clr Calc Pharmacy 24.8 ml/min; Potassium 4.4 mmol/L (3.5-5.1)
[2024-06-03 08:51] LABS: Anisocytosis Present; Tear Drop Cells 1+
--- NOTE | 2024-06-03 09:07 | CT Scan Report ---
EXAM: CT Chest Without Intravenous Contrast INDICATION: Pleural effusions. TECHNIQUE: Axial computed tomography images of the chest without intravenous contrast. Sagittal and coronal reformatted images were created and reviewed. This CT exam was performed using one or more of the following dose reduction techniques: automated exposure control, adjustment of the mA and/or kV according to patient size, and/or use of iterative reconstruction technique. COMPARISON: Chest x-ray the same day FINDINGS: Limitations: None. Lungs and pleural spaces: Moderate to large right and small left layering pleural effusions. No pneumothorax. There is extensive groundglass infiltrate in both lungs most notably involving the left upper lobe. There is dependent consolidation along both pleural effusions right greater than left. There is bilateral lower lobe airway plugging left greater than right. Heart: Cardiomegaly. Dense coronary calcification. There is dense calcification of the mitral and aortic valves. No pericardial effusion. Thyroid: No abnormality noted. Bones/joints: Degenerative changes noted throughout the spine. No acute osseous abnormality seen. Soft tissues: No significant abnormality noted. Vasculature: No abnormality noted. No thoracic aortic aneurysm. Lymph nodes: No enlarged lymph nodes. Intraperitoneal space: Upper abdominal ascitic fluid noted. Tubes, lines and devices: Right internal jugular central venous catheter tip in the distal superior vena cava. IMPRESSION: 1. Moderate to large right and small left layering pleural effusions. 2. Extensive groundglass infiltrates in both lungs. Consider pneumonia including viral etiologies and CHF. There is compressive atelectasis along both pleural effusions. 3. Upper abdominal ascites. ACT 112: Negative or not required by law. Electronically signed by Tamara Valentine 06-03-2024 09:07 AM
--- NOTE | 2024-06-03 13:31 | Nephrology Progress Note ---
Date of Service June 03, 2024 Assessment & Plan (1) Acute kidney injury: Plan: Completed HD yesterday with adequate UF and clearance. Continue to monitor for renal recovery. IV furosemide provided today to encourage urine output. Adequate clearance with treatment. Next HD likely tomorrow. Medications are appropriate for kidney dysfunction. (2) Anemia: Plan: Chronic, stable. LANDEN therapy will be administered with HD. Tsat acceptable. Admission and Anticipated Discharge Date Admission Date: May 18, 2024 [place] Milian completed HD yesterday without complications. Hypoxia noted overnight. Possible aspiration reported. CXR and CT chest were reviewed. I discussed the patient's history and plan of care with Dr. Dukes. Maicol has remained agitated. He frequently calling out and making noises but not able to communicate. He does not follow commands or interact in a meaningful way. Low grade temp noted. Review of Systems Review of Systems: Unobtainable due to cognitive status Physical Exam Constitutional: well developed, + ill appearing, + altered mental status and + frail appearing; no acute distress Eyes: + anicteric sclerae; no conjunctival abn ormality ENMT: Mouth: + dry oral mucous membranes Neck: normal visual inspection and trachea midline Respiratory: normal respiratory effort Auscultation: lungs clear to auscultation bilaterally, + diminished lung sounds and + rhonchi Cardiovascular: Rate/Rhythm: regular rate Heart Sounds: normal S1 and normal S2 Extremities: + pedal edema Musculoskeletal: Extremities: no cyanosis and no clubbing Skin: normal turgor; no lesions Neurologic: Motor/Sensory: no tremor and no asterixis Psychiatric: Orientation: alert; + not oriented x 3 Results & Data Vital Signs (Past 12 Hours) Vital Signs Temp Pulse Pulse Resp BP BP Pulse Ox 06/03/24 11:35 37.7 C H 101 H 18 116/72 91 06/03/24 11:01 97 H 24 94 06/03/24 07:50 06/03/24 07:20 37.4 C 100 H 18 121/70 91 06/03/24 07:18 100 H 24 91 06/03/24 07:00 98 H 06/03/24 05:43 36.5 C 99 H 22 91 06/03/24 03:54 37.2 C 105 H 18 114/62 90 O2 Del Method O2 Flow Rate 06/03/24 11:35 Nasal Cannula 4 06/03/24 11:01 Nasal Cannula 3 06/03/24 07:50 Nasal Cannula 3 06/03/24 07:20 Nasal Cannula 3 06/03/24 07:18 Nasal Cannula 3 06/03/24 07:00 06/03/24 05:43 Nasal Cannula 3 06/03/24 03:54 Room Air Laboratory Results Laboratory Results - last 24 hr 06/02/24 06/02/24 06/03/24 16:40 20:33 08:08 WBC 9.61 RBC 2.94 L Hgb 9.6 L Hct 29.9 L MCV 101.7 H MCH 32.7 MCHC 32.1 RDW Std Deviation 75.0 H RDW Coeff of Nick 20.5 H Plt Count 94 L MPV 11.3 Immature Gran % (Auto) 0.6 Neut % (Auto) 85.0 Lymph % (Auto) 5.7 Canyon % (Auto) 8.3 Eos % (Auto) 0.4 Baso % (Auto) 0.0 Neut # (Auto) 8.16 H Lymph # (Auto) 0.55 L [place] # (Auto) 0.80 H Eos # (Auto) 0.04 Baso # (Auto) 0.00 Immature Gran # (Auto) 0.06 Anisocytosis Present Tear Drop Cells 1+ Sodium 141 Potassium 4.4 Chloride 107 Carbon Dioxide 23 Anion Gap 11 BUN 41 H Creatinine 2.45 H D Est Cr Clr Drug Dosing 24.8 eGFR 26.28 BUN/Creatinine Ratio 16.7 Glucose 114 H POC Glucose 126 H 117 H Calcium 9.0 Procalcitonin 0.57 H 06/03/24 06/03/24 08:16 12:05 WBC RBC Hgb Hct MCV MCH MCHC RDW Std Deviation RDW Coeff of Nick Plt Count MPV Immature Gran % (Auto) Neut % (Auto) Lymph % (Auto) [place] % (Auto) Eos % (Auto) Baso % (Auto) Neut # (Auto) Lymph # (Auto) [place] # (Auto) Eos # (Auto) Baso # (Auto) Immature Gran # (Auto) Anisocytosis Tear Drop Cells Sodium Potassium Chloride Carbon Dioxide Anion Gap BUN Creatinine Est Cr Clr Drug Dosing eGFR BUN/Creatinine Ratio Glucose POC Glucose 114 H 118 H Calcium Procalcitonin PG Care Time/CCT Total # of Minutes Spent Total Time Spent with Patient: Total time spent is greater than 50% in coordination of care (as documented) at patient's floor/unit and/or counseling patient: Coding Level of Care Code 14920 SUB INP/OBS CARE 2/35MIN Diagnoses Acute kidney injury N17.9 Anemia D64.9 Anemia type: unspecified type (2) Anemia Anemia type: unspecified type Qualified Code(s): D64.9 - Anemia, unspecified
[2024-06-03] MEDS: FUROSEMIDE 40 MG/4 ML VIAL IV ONE (14:38)
[2024-06-03] MEDS: PIPERACILLIN/TAZOBACTAM 4.5 GM/100 ML BAG IV ONE (14:39)
[2024-06-03] MEDS: HYDROCORTISONE 10 MG TAB PO SCH (15:28)
[2024-06-03] MEDS: PIPERACILLIN/TAZOBACTAM 4.5 GM/100 ML BAG IV SCH (21:46)
[2024-06-04 05:54] LABS: Hematocrit (blood only) 29.8 % (42.0-52.0); Hemoglobin 9.1 g/dl (14.0-18.0)
[2024-06-04 06:12] LABS: Albumin Level 3.3 gm/dl (3.4-5.0); Calcium 8.9 mg/dl (8.6-10.3); Creatinine Clr Calc Pharmacy 19.2 ml/min; Phosphorus 4.5 mg/dl (2.5-4.9); Potassium 4.5 mmol/L (3.5-5.1)
[2024-06-04] MEDS: HYDROCORTISONE 10 MG TAB PO SCH (08:51)
[2024-06-04] MEDS: EPOETIN ALFA 20,000 UNITS/ML VIAL IV ONE (10:48)
--- NOTE | 2024-06-04 11:53 | Nephrology Progress Note ---
Date of Service June 04, 2024 Assessment & Plan (1) Acute kidney injury: Plan: Non-oliguric. Creatinine continues to rise between HD treatments. Remains volume overloaded. HD provided today for UF and clearance. Orders entered into the EHR and reviewed with HD RN. Maicol was seen and evaluated during treatment. Continue to monitor for renal recovery. IV furosemide provided yesterday to encourage urine output with minimal response. If able to obtain adequate UF today, will monitor over the weekend. Otherwise, treatment will be provided tomorrow for additional UF. Medications are appropriate for kidney dysfunction. Unfortunately, Maicol remains disoriented and unable to engage in meaningful conversation. It is unclear if this will improve. 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 (2) Anemia: Plan: Epogen 11258 units with HD today. Iron profile acceptable. (3) Cirrhosis: Plan: Remains on midodrine for associated hypotension. Overall prognosis is very poor. Ability to tolerate UF with HD limited. Remains hypervolemic. (4) Adrenal insufficiency: Plan: Treatment with dexamethasone per hospitalist team. (5) Hx of aortic valve replacement, mechanical: Plan: Not being anticoagulated due to bleeding risk. Admission and Anticipated Discharge Date Admission Date: May 18, 2024 Subjective No acute events overnight. Tmax 37.7 yesterday. Maicol was seen and evaluated during hemodialysis this AM. He is alert and answers questions but remains disoriented and unable to engage in any meaningful conversation. BP slightly low but tolerating HD reasonably well. Qb at goal. Review of Systems Review of Systems: All systems reviewed & are unremarkable except as noted in HPI & below Physical Exam Constitutional: well developed and + frail appearing; no acute distress Eyes: + anicteric sclerae; no conjunctival abn ormality ENMT: Mouth: + dry oral mucous membranes Neck: normal visual inspection and trachea midline Respiratory: normal respiratory effort Auscultation: lungs clear to auscultation bilaterally, + diminished lung sounds and + rhonchi Cardiovascular: Rate/Rhythm: regular rate Heart Sounds: normal S1 and normal S2 Extremities: + pedal edema Musculoskeletal: Extremities: no cyanosis and no clubbing Skin: no jaundice Neurologic: Motor/Sensory: no tremor and no asterixis Psychiatric: Orientation: alert; + not oriented x 3 Results & Data Vital Signs (Past 12 Hours) Vital Signs Temp Pulse Pulse Resp BP BP BP 06/04/24 11:30 76 104/60 06/04/24 11:00 79 107/65 06/04/24 10:30 78 107/66 06/04/24 10:00 84 109/70 06/04/24 09:52 80 107/59 L 06/04/24 09:47 36.5 C 06/04/24 08:00 06/04/24 07:32 35.9 C L 68 18 115/69 06/04/24 07:25 66 20 06/04/24 07:00 77 06/04/24 03:54 36.5 C 67 20 113/68 06/03/24 23:57 36.7 C 83 20 115/71 Pulse Ox O2 Del Method O2 Flow Rate 06/04/24 11:30 06/04/24 11:00 06/04/24 10:30 06/04/24 10:00 06/04/24 09:52 06/04/24 09:47 06/04/24 08:00 Nasal Cannula 3 06/04/24 07:32 97 Nasal Cannula 3 06/04/24 07:25 97 Nasal Cannula 3 06/04/24 07:00 06/04/24 03:54 95 Nasal Cannula 3 06/03/24 23:57 93 Nasal Cannula 3 Laboratory Results Laboratory Results - last 24 hr 06/03/24 06/03/24 06/03/24 12:05 17:05 21:11 Hgb Hct Sodium Potassium Chloride Carbon Dioxide Anion Gap BUN Creatinine Est Cr Clr Drug Dosing eGFR BUN/Creatinine Ratio Glucose POC Glucose 118 H 108 H 170 H Calcium Phosphorus Albumin 06/04/24 06/04/24 05:37 08:12 Hgb 9.1 L Hct 29.8 L Sodium 141 Potassium 4.5 Chloride 107 Carbon Dioxide 25 Anion Gap 9 BUN 54 H Creatinine 3.17 H D Est Cr Clr Drug Dosing 19.2 eGFR 19.29 BUN/Creatinine Ratio 17.0 Glucose 125 H POC Glucose 122 H Calcium 8.9 Phosphorus 4.5 Albumin 3.3 L PG Care Time/CCT Total # of Minutes Spent Total Time Spent with Patient: Total time spent is greater than 50% in coordination of care (as documented) at patient's floor/unit and/or counseling patient: Coding Level of Care Code 34563 SUB INP/OBS CARE 3/50MIN Diagnoses Acute kidney injury N17.9 Anemia D64.9 Anemia type: unspecified type Cirrhosis K74.60 Adrenal insufficiency E27.40 Hx of aortic valve replacement, mechanical Z95.2 (2) Anemia Anemia type: unspecified type Qualified Code(s): D64.9 - Anemia, unspecified
--- NOTE | 2024-06-04 16:29 | Hospitalist Progress Note ---
Date of Service June 04, 2024 Assessment & Plan (1) Hypoxia: Plan: Increased hypoxia with worsened pulmonary infiltrates 06/[address] noncontrast 06/03 remarkable for: "Moderate to large right and small left layering pleural effusions. No pneumothorax. There is extensive groundglass infiltrate in both lungs most notably involving the left upper lobe. There is dependent consolidation along both pleural effusions right greater than left. There is bilateral lower lobe airway plugging left greater than right. " Multifactorial causes including pulmonary edema / volume overload and pleural effusions related to ESRD/ESLD/HF and not able to tolerate very effective ultrafiltration on dialysis, rhinovirus/enterovirus, may have bacterial pneumonia, was on ceftriaxone but seems to have improved on pip-tazo with resolution of low grade fever and speech output/clarity and oral intake is improved today -broader antibiotics - pip-tazo x 5 days (06/03-->). -continue dialysis -consider R thoracentesis Friday, discussed with his -try for better pulmonary toilet - acapella, IS - though won't be able to cooperate well. avoiding mucinex because can cause mental status changes (2) Acute kidney injury: Plan: 79-year-old man with complex underlying medical problems who was originally admitted with hematuria. He underwent Rezum procedure on December 05, had urethral stricture which was dilated on February 24, discharged with Marvin catheter. Urology consulted this admission for hematuria. Hematuria has resolved. 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 Mental status has remained poor, likely has underlying dementia with superimposed delirium. 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 He also has a mechanical aortic valve but anticoagulation was discontinued about a month ago when he presented with INR of 10 on warfarin, has been having bleeding problems and significant anemia, his INR remains elevated due to his cirrhosis. He was treated for hepatorenal failure about a month ago at another hospital, was at [facility] on dialysis through mid-April and still has HD line in place. He was discharged home from [facility] 3 days [employer]. This admission he has had worsening renal function creatinine was 1.7s on admission and ajay, required reinitiation of hemodialysis. VINICIUS caused by hypoperfusion/hypotension -recurrent VINICIUS on CKD, currently requiring hemodialysis. May have progressed to ESRD. -cont marvin (not to document UOP, but due to urological issues). Discuss with Dr. Soto whether appropriate to have voiding trial soon -BMP reviewed today, lytes acceptable (3) Rhinovirus infection: Plan: BioFire + on 05/30 supportive care droplet precautions see above (4) Acute metabolic encephalopathy: Plan: ongoing severe hypoactive delirium, mental status much worse than recent baseline though suspect underlying neurodegenerative disorder multifactorial causes -- * hepatic encephalopathy (ammonia level 70s last week --> now improved). having several BMs/day on current lactulose * toxic effects from seroquel & benzos (clonazepam) both of which were stopped on 05/22 * acidosis could be contributing * disruption of sleep-wake cycle could be contributing * rhinovirus infection * enterococcal UTI * hospital delirium * potentially other factors MRI brain - no acute or subacute CVA; no old CVA; no ICH or mass supportive care treat individual issues speech clarity improved today (was very garbled 06/01 -06/03) (5) Urinary tract infection with hematuria: Plan: present on admission Known, underlying BPH He underwent Rezum procedure on December 05 had urethral stricture which was dilated on February 24, discharged with Marvin catheter Urologist Dr. Soto irrigated and repositioned his marvin catheter earlier this stay. Clots were evacuated. Hematuria resolved, did not require CBI At time of admission presumed to have had UTI, however urine culture from 05/15 with skin marco and urine and blood cultures from 05/18 were negative Was treated with cefepime then ceftriaxone 05/20-05/24 Now with recurrent UTI: VRE Catheter associated UTI, continue daptomycin, started 05/31 - plan 7 days (6) Anemia in chronic kidney disease (CKD): Plan: transfused 1u PRBCs 05/23 ongoing acceptable H/H Hg 9 (7) CHF (congestive heart failure): Plan: Chronic HFpEF has mechanical AVR but is no longer on chronic anticoagulation because of cirrhosis and problems with bleeding/coagulopathy Echo 02/29/2024 -- EF 50 to 55%, moderate dilation of RV, LA, RA, mechanical aortic valve in place, trace aortic regurgitation, severe tricuspid regurgitation, diastolic dysfunction grade 3 Metoprolol & bumex both on hold due to low BP & VINICIUS He is volume overloaded - combination of cirrhosis, VINICIUS, +/- diastolic CHF HD being used for volume control (8) Diabetes mellitus, type 2: Plan: Most recent A1c (02/19/2024) 5.1% Now with hypoglycemia - adrenal insufficiency + poor po intake on many days Hypoglycemia resolved since starting dexamethasone. (9) Cirrhosis: Plan: With hepatic encephalopathy, coagulopathy INR 1.4, thrombocytopenia Cont lactulose/rifaximin Cont midodrine TID for low BP Small ascites on chest CT 06/03 (10) Muscle tone increased: Plan: appears to have UMN signs on exam hepatic encephalopathy has been aggressively treated quetiapine was stopped MRI brain w/o pathology MRI c-spine with C5 myelomalacia - contributing? but no severe spinal stenosis of c-spine but the C5 issue could be contributing had neuro eval last week - potentially progressive supranuclear palsy - treatment for this is supportive continue PT and OT (11) Acute hepatic encephalopathy: Plan: acute on chronic hepatic encephalopathy improved, ammonia normalized cont lactulose - correction, having at least 2-3 stools/d on bid lactulose cont rifaximin BID (12) Acidosis: Plan: 2nd to acute kidney injury improved s/p HD (13) History of fractured vertebra: Plan: lower c-spine and upper t-spine see discussion above in #10 (14) Hx of aortic valve replacement, mechanical: Plan: no longer on coumadin due to prior radiation proctitis, hematuria, and coagulopathy at HIGH RISK of clotting of the valve with subsequent embolic phenomenon, etc. no CVA seen on MRI Brain this weekend -consider trying to restart coumadin (15) Hx of aortic aneurysm: Plan: with h/o chronic Type A dissection s/p repair [facility] several years ago (2019) (16) Pancytopenia: Plan: presumed 2nd to cirrhosis which is due to MAS most recent cbc -- cell lines improved/acceptable (17) Hypothyroidism: Plan: TSH 5.5 earlier this admission but no changes in synthroid at this time (18) Adrenal insufficiency: Plan: per daughter's report had steroids while in [place] [facility] stim test this admission -- did not pass - did not stim to >18, baseline cortisol was low at 3 hard to interpret cortisol in cirrhosis because of low protein binding globulin, however, may be relatively improved on steroids especially blood pressure and BG transitioned to hydrocortisone 06/03 and wean Plan Sacral decubitus ulcer present on admission - has sacral, ischial wounds, DTI - continue wound care Depression with anxiety GERD- PPI palliative care consult appreciated - continue current interventions, DNR/DNI updated his daughter 06/03 by phone updated his and other daughter in person 06/04 prognosis remains poor with persistent hypoactive delirium, ESLD progression to probable ESRD, heart failure Admission and Anticipated Discharge Date Admission Date: May 18, 2024 Subjective today Papito is alert and speech is much more intelligible, no longer garbled, though remains very confused and nonsensical +short of breath, no pain when came ate all of his lunch tray Physical Exam 2 Physical Exam: PHYSICAL EXAMINATION Last 24h vital signs reviewed, see documentation in flowsheet General: awake getting HD HEENT: Normocephalic, atraumatic, pupils round and equal, sclerae anicteric, no conjunctival injection, moist mucus membranes Lungs: Nonlabored, mildly coarse BS anteriorly Heart: Regular rate and rhythm, no murmurs Abdomen: Soft, nontender, nondistended. Bowel sounds present Extremities: Warm, dry, well-perfused. still with 1+ anasarca Neuro: Alert and only oriented to self says he's in the "[facility] [place]" but speech output improved and intelligible today, very hard of hearing, face symmetric, bradykinesia, no resting tremor observed Psych: Normal affect and behavior Results & Data Results & Data Vital Signs (Past 12 Hours) Vital Signs Temp Pulse Pulse Pulse Resp BP BP 06/04/24 15:06 98.2 F 76 18 108/63 06/04/24 15:00 83 20 06/04/24 14:42 97.7 F 78 18 06/04/24 14:26 74 06/04/24 13:02 97.3 F L 80 06/04/24 12:30 84 93/57 L 06/04/24 12:00 74 99/52 L 06/04/24 11:30 76 104/60 06/04/24 11:00 79 107/65 06/04/24 10:30 78 107/66 06/04/24 10:00 84 109/70 06/04/24 09:52 80 107/59 L 06/04/24 09:47 97.7 F 06/04/24 08:00 06/04/24 07:32 96.6 F L 68 18 115/69 11/29/24 07:25 66 20 06/04/24 07:00 77 BP Pulse Ox O2 Del Method O2 Flow Rate 06/04/24 15:06 96 Nasal Cannula 3 06/04/24 15:00 94 Nasal Cannula 3 06/04/24 14:42 103/61 96 Nasal Cannula 2 06/04/24 14:26 06/04/24 13:02 99/61 L 06/04/24 12:30 06/04/24 12:00 06/04/24 11:30 06/04/24 11:00 06/04/24 10:30 06/04/24 10:00 06/04/24 09:52 06/04/24 09:47 06/04/24 08:00 Nasal Cannula 3 06/04/24 07:32 97 Nasal Cannula 3 06/04/24 07:25 97 Nasal Cannula 3 06/04/24 07:00 Laboratory Results 06/04/24 05:37 06/04/24 05:37 PG Care Time/CCT Total # of Minutes Spent Total Time Spent with Patient: Total time spent is greater than 50% in coordination of care (as documented) at patient's floor/unit and/or counseling patient: Coding Level of Care Code 61661 SUB INP/OBS CARE 3/50MIN Diagnoses Hypoxia R09.02 Acute kidney injury N17.9 Rhinovirus infection B34.8 Acute metabolic encephalopathy G93.41 Urinary tract infection with hematuria N39.0; R31.9 Anemia in chronic kidney disease (CKD) N18.9; D63.1 CHF (congestive heart failure) I50.9 Diabetes mellitus, type 2 E11.9 Cirrhosis K74.60 Muscle tone increased M62.89 Acute hepatic encephalopathy K76.82 Acidosis E87.20 History of fractured vertebra Z87.81 Hx of aortic valve replacement, mechanical Z95.2 Hx of aortic aneurysm Z86.79 Pancytopenia D61.818 Hypothyroidism E03.9 Adrenal insufficiency E27.40
--- NOTE | 2024-06-05 13:59 | Nephrology Progress Note ---
Date of Service June 05, 2024 Assessment & Plan (1) Acute kidney injury: Plan: Non-oliguric. Completed HD yesterday with adequate UF and clearance. HD held today. Medications are appropriate for kidney dysfunction. Unfortunately, Maicol remains disoriented and unable to engage in meaningful conversation. It is unclear if this will improve. 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 (2) Anemia: Plan: Epogen 77645 units with HD yesterday. Iron profile acceptable. (3) Cirrhosis: Plan: Remains on midodrine for associated hypotension. Overall prognosis is very poor. Ability to tolerate UF with HD limited. (4) Adrenal insufficiency: Plan: Treatment with dexamethasone per hospitalist team. (5) Hx of aortic valve replacement, mechanical: Plan: Not being anticoagulated due to bleeding risk. Admission and Anticipated Discharge Date Admission Date: May 18, 2024 Subjective No acute events overnight. Not oriented or answering questions appropriately but speaking in short sentences. Does not demonstrate comprehension during conversations. No fevers or chills. Tolerated HD yesterday without complications. Review of Systems Review of Systems: All systems reviewed & are unremarkable except as noted in HPI & below Physical Exam Constitutional: well developed and + frail appearing; no acute distress Eyes: + anicteric sclerae; no conjunctival abn ormality ENMT: Mouth: + dry oral mucous membranes Neck: normal visual inspection and trachea midline Respiratory: normal respiratory effort Auscultation: lungs clear to auscultation bilaterally and + rhonchi Cardiovascular: Rate/Rhythm: regular rate Heart Sounds: normal S1 and normal S2 Extremities: + pedal edema Musculoskeletal: Extremities: no cyanosis and no clubbing Skin: normal turgor; no lesions and no jaundice Neurologic: Motor/Sensory: no tremor and no asterixis Psychiatric: Orientation: alert; + not oriented x 3 Results & Data Vital Signs (Past 12 Hours) Vital Signs Temp Pulse Pulse Resp BP BP Pulse Ox 06/05/24 13:01 36.9 C 79 16 89/40 L 96 06/05/24 11:19 80 18 91 06/05/24 07:30 36.4 C L 80 20 107/57 L 95 06/05/24 07:28 76 18 96 06/05/24 07:21 75 O2 Del Method O2 Flow Rate 06/05/24 13:01 Room Air 11/30/24 11:19 Room Air 06/05/24 07:30 Nasal Cannula 1 06/05/24 07:28 Nasal Cannula 1 06/05/24 07:21 Laboratory Results Laboratory Results - last 24 hr 06/04/24 06/04/24 06/05/24 17:14 20:07 08:29 POC Glucose 149 H 116 H 95 06/05/24 12:27 POC Glucose 130 H PG Care Time/CCT Total # of Minutes Spent Total Time Spent with Patient: Total time spent is greater than 50% in coordination of care (as documented) at patient's floor/unit and/or counseling patient: Coding Level of Care Code 16476 SUB INP/OBS CARE 3/50MIN Diagnoses Acute kidney injury N17.9 Anemia D64.9 Anemia type: unspecified type Cirrhosis K74.60 Adrenal insufficiency E27.40 Hx of aortic valve replacement, mechanical Z95.2 (2) Anemia Anemia type: unspecified type Qualified Code(s): D64.9 - Anemia, unspecified
--- NOTE | 2024-06-05 14:27 | Hospitalist Progress Note ---
Date of Service June 05, 2024 Assessment & Plan (1) Acute kidney injury: Plan: 79-year-old man with complex underlying medical problems who was originally admitted with hematuria. He underwent Rezum procedure on December 05, had urethral stricture which was dilated on February 24, discharged with Marvin catheter. Urology consulted this admission for hematuria. Hematuria has resolved. 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 Mental status has remained poor, likely has underlying dementia with superimposed delirium. 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 He also has a mechanical aortic valve but anticoagulation was discontinued about a month ago when he presented with INR of 10 on warfarin, has been having bleeding problems and significant anemia, his INR remains elevated due to his cirrhosis. He was treated for hepatorenal failure about a month ago at another hospital, was at [facility] on dialysis through mid and still has HD line in place. 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 This admission he has had worsening renal function creatinine was 1.7s on admission and ajay, required reinitiation of hemodialysis. VINICIUS caused by hypoperfusion/hypotension -recurrent VINICIUS on CKD, currently requiring hemodialysis. May have progressed to ESRD. Will see after w/e whether HD needs to continue -cont marvin (not to document UOP, but due to urological issues). Discuss with Dr. Soto whether appropriate to have voiding trial soon -discussed with Dr. Lima -[facility] CBC (2) Pneumonia: Plan: Multifocal pneumonia Increased hypoxia with worsened pulmonary infiltrates on chest CT 06/03 and worsened mental status. Both resolved after changing from ceftriaxone to pip- tazo for pneumonia. Also with pleural effusions R>L and pulmonary edema -broader antibiotics - pip-tazo x 5 days (06/03-->06/07). -continue dialysis -consider R thoracentesis Friday, discussed with his . He's not hypoxic or dyspneic at this point, however, so may be safer to avoid procedure. (3) Rhinovirus infection: Plan: BioFire + on 05/30 supportive care droplet precautions see above (4) Acute metabolic encephalopathy: Plan: ongoing severe hypoactive delirium, mental status much worse than recent baseline though suspect underlying neurodegenerative disorder multifactorial causes -- * hepatic encephalopathy (ammonia level 70s last week --> now improved). having several BMs/day on current lactulose * toxic effects from seroquel & benzos (clonazepam) both of which were stopped on 05/22 * acidosis could be contributing * disruption of sleep-wake cycle could be contributing * rhinovirus infection * enterococcal UTI * hospital delirium * potentially other factors MRI brain - no acute or subacute CVA; no old CVA; no ICH or mass supportive care treat individual issues alertness, speech clarity and output improved 06/04-06/05 after starting pip- tazo. remains very confused (5) Urinary tract infection with hematuria: Plan: present on admission Known, underlying BPH He underwent Rezum procedure on December 05 had urethral stricture which was dilated on February 24, discharged with Marvin catheter Urologist Dr. Soto irrigated and repositioned his marvin catheter earlier this stay. Clots were evacuated. Hematuria resolved, did not require CBI At time of admission presumed to have had UTI, however urine culture from 05/15 with skin marco and urine and blood cultures from 05/18 were negative Was treated with cefepime then ceftriaxone 05/20-05/24 Now with recurrent UTI: VRE Catheter associated UTI, continue daptomycin (05/31 - 06/06) plan 7 days (6) Anemia in chronic kidney disease (CKD): Plan: transfused 1u PRBCs 05/23 ongoing acceptable H/H Hg 9 (7) CHF (congestive heart failure): Plan: Chronic HFpEF has mechanical AVR but is no longer on chronic anticoagulation because of cirrhosis and problems with bleeding/coagulopathy Echo 02/29/2024 -- EF 50 to 55%, moderate dilation of RV, LA, RA, mechanical aortic valve in place, trace aortic regurgitation, severe tricuspid regurgitation, diastolic dysfunction grade 3 He is volume overloaded - combination of cirrhosis, VINICIUS, +/- diastolic CHF HD being used for volume control bumex and metoprolol held for hypotension and VINICIUS. Still on midodrine 10 mg tid for hypotension, however, BP trending up recently. UF has still been challenging with HD. (8) Diabetes mellitus, type 2: Plan: Most recent A1c (02/19/2024) 5.1% Now with hypoglycemia - adrenal insufficiency + poor po intake on many days Hypoglycemia resolved since starting dexamethasone. (9) Cirrhosis: Plan: With hepatic encephalopathy, coagulopathy INR 1.4, thrombocytopenia Cont lactulose/rifaximin Cont midodrine TID for low BP Small ascites on chest CT 06/03 (10) Muscle tone increased: Plan: appears to have UMN signs on exam hepatic encephalopathy has been aggressively treated quetiapine was stopped MRI brain w/o pathology MRI c-spine with C5 myelomalacia - contributing? but no severe spinal stenosis of c-spine but the C5 issue could be contributing had neuro eval last week - potentially progressive supranuclear palsy - treatment for this is supportive continue PT and OT (11) Acute hepatic encephalopathy: Plan: acute on chronic hepatic encephalopathy improved, ammonia normalized cont lactulose - correction, having at least 2-3 stools/d on bid lactulose cont rifaximin BID (12) Acidosis: Plan: 2nd to acute kidney injury improved s/p HD (13) History of fractured vertebra: Plan: lower c-spine and upper t-spine see discussion above in #10 (14) Hx of aortic valve replacement, mechanical: Plan: no longer on coumadin due to prior radiation proctitis, hematuria, and coagulopathy at HIGH RISK of clotting of the valve with subsequent embolic phenomenon, etc. 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 most recent cbc -- cell lines improved/acceptable (17) Hypothyroidism: Plan: TSH 5.5 earlier this admission but no changes in synthroid at this time (18) Adrenal insufficiency: Plan: per daughter's report had steroids while in [place] cosyntropin stim test this admission -- did not pass - did not stim to >18, baseline cortisol was low at 3 hard to interpret cortisol in cirrhosis because of low protein binding globulin, however, may be relatively improved on steroids especially blood pressure and BG transitioned to hydrocortisone 06/03 and wean Plan Sacral decubitus ulcer present on admission - has sacral, ischial wounds, DTI - continue wound care Depression with anxiety GERD- PPI palliative care consult appreciated - continue current interventions, DNR/DNI updated his daughter 06/03 by phone updated his and other daughter in person 06/04 DVT ppx - SQ heparin - try starting tid (last Plt 90s) monitor for hematuria or other bleeding. INR in AM prognosis remains poor with persistent hypoactive delirium, ESLD progression to probable ESRD, heart failure Admission and Anticipated Discharge Date Admission Date: May 18, 2024 Subjective he's awake and talkative but remains very confused now drinking from a cup by himself denies pain and shortness of breath has improved Physical Exam 2 Physical Exam: PHYSICAL EXAMINATION Last 24h vital signs reviewed, see documentation in flowsheet General: awake sitting in bed HEENT: Normocephalic, atraumatic, pupils round and equal, sclerae anicteric, no conjunctival injection, moist mucus membranes Lungs: Nonlabored, CTAB ant Heart: Regular rate and rhythm, no murmurs Rt upper chest HD line Abdomen: Soft, nontender, nondistended. Bowel sounds present Extremities: Warm, dry, well-perfused. still with 1+ anasarca Neuro: Alert and only oriented to self says he's in a town I[place] heard of, not oriented to hospital or situation, speaking a lot more and intelligible though, very hard of hearing, face symmetric, bradykinesia, has tremor and some rigidity/cogwheeling bilateral UE Psych: Normal affect and behavior Results & Data Results & Data Vital Signs (Past 12 Hours) Vital Signs Temp Pulse Pulse Resp BP BP Pulse Ox 06/05/24 14:02 97.9 F 77 118/59 L 06/05/24 13:01 98.4 F 79 16 89/40 L 96 06/05/24 11:19 80 18 91 06/05/24 07:30 97.5 F L 80 20 107/57 L 95 06/05/24 07:28 76 18 96 06/05/24 07:21 75 O2 Del Method O2 Flow Rate 06/05/24 14:02 06/05/24 13:01 Room Air 06/05/24 11:19 Room Air 06/05/24 07:30 Nasal Cannula 1 06/05/24 07:28 Nasal Cannula 1 06/05/24 07:21 Laboratory Results 06/04/24 05:37 06/04/24 05:37 PG Care Time/CCT Total # of Minutes Spent Total Time Spent with Patient: Total time spent is greater than 50% in coordination of care (as documented) at patient's floor/unit and/or counseling patient: Coding Level of Care Code 01082 SUB INP/OBS CARE 50MIN Diagnoses Acute kidney injury N17.9 Pneumonia J18.9 Rhinovirus infection B34.8 Acute metabolic encephalopathy G93.41 Urinary tract infection with hematuria N39.0; R31.9 Anemia in chronic kidney disease (CKD) N18.9; D63.1 CHF (congestive heart failure) I50.9 Diabetes mellitus, type 2 E11.9 Cirrhosis K74.60 Muscle tone increased M62.89 Acute hepatic encephalopathy K76.82 Acidosis E87.20 History of fractured vertebra Z87.81 Hx of aortic valve replacement, mechanical Z95.2 Hx of aortic aneurysm Z86.79 Pancytopenia D61.818 Hypothyroidism E03.9 Adrenal insufficiency E27.40
[2024-06-05] MEDS: HEPARIN SOD 5,000 UNIT/0.5 ML VIAL SQ SCH (21:01)
[2024-06-06 05:59] LABS: Hematocrit (blood only) 28.9 % (42.0-52.0); Hemoglobin 9.2 g/dl (14.0-18.0); Mean Corpuscular Hemoglobin 31.6 pg (25.0-34.0); Mean Corpuscular Hgb Conc 31.8 g/dL (32.0-36.0); Mean Corpuscular Volume 99.3 fL (80.0-100.0); Mean Platelet Volume 10.8 fL (9.4-12.4); Platelet Count 131 K/uL (130-400); RDW Coefficient of Variation 19.7 % (11.5-14.5); RDW Standard Deviation 71.8 fL (36.4-46.3); Red Blood Count 2.91 M/uL (4.70-6.10); White Blood Count 9.28 K/ul (4.8-10.8)
[2024-06-06 06:25] LABS: INR 1.5 (0.9-1.1); Prothrombin Time 15.6 Seconds (9.0-12.0)
[2024-06-06 06:35] LABS: Albumin Level 3.3 gm/dl (3.4-5.0); Bilirubin,Total 1.2 mg/dl (0.2-1.0); Calcium 9.3 mg/dl (8.6-10.3); Potassium 4.5 mmol/L (3.5-5.1)
[2024-06-06 06:57] LABS: Albumin Globulin Ratio 1.1 (0.9-2); Creatinine Clr Calc Pharmacy 19.5 ml/min; Total Protein 6.3 gm/dl (6.0-8.3)
[2024-06-06 07:18] LABS: BUN Creatinine Ratio 21.1 (10-20)
--- NOTE | 2024-06-06 12:19 | Nephrology Progress Note ---
Date of Service June 06, 2024 Assessment & Plan (1) Acute kidney injury: Plan: Non-oliguric. Electrolytes acceptable. Creatinine relatively stable. Last HD 06/04. BP and volume status are acceptable. Electrolytes normal. No indication for dialysis today. Daily evaluation will be provided. If kidney function stable tomorrow, HD will be held. Medications are appropriate for kidney dysfunction. (2) Anemia: Plan: Epogen 53374 units with HD 06/04. Iron profile acceptable. (3) Cirrhosis: Plan: Remains on midodrine for associated hypotension. MELD Na 26. Prognosis is unfortunately very poor. (4) Adrenal insufficiency: Plan: Treatment with dexamethasone per hospitalist team. (5) Hx of aortic valve replacement, mechanical: Plan: Not being anticoagulated due to bleeding risk. Admission and Anticipated Discharge Date Admission Date: May 18, 2024 Subjective No acute events overnight. Maicol remains pleasantly confused. He is not oriented and he is not able to engage in constructive conversation. He was seen and evaluated with Dr. Dukes this AM. Maicol remains non-oliguric. Duran draining bright red urine yesterday and cola-colored urine this AM. No clots. Maicol denies pain. No fevers. He had a coughing fit when I initially saw him and reported that he couldn't get any rest because he was coughing so much. A few minutes later, he denied coughing. He does not endorse any dyspnea. Review of Systems Review of Systems: All systems reviewed & are unremarkable except as noted in HPI & below Physical Exam Constitutional: + frail appearing; no acute distress Eyes: + anicteric sclerae; no conjunctival abn ormality ENMT: Mouth: + dry oral mucous membranes Neck: normal visual inspection and trachea midline Respiratory: normal respiratory effort and + cough Auscultation: lungs clear to auscultation bilaterally, + diminished lung sounds and + rhonchi Cardiovascular: Rate/Rhythm: regular rate Heart Sounds: normal S1 and normal S2 Extremities: no edema Musculoskeletal: Extremities: no cyanosis and no clubbing Skin: normal turgor; no lesions and no jaundice Neurologic: Motor/Sensory: no tremor and no asterixis Psychiatric: Orientation: alert; + not oriented x 3 Results & Data Vital Signs (Past 12 Hours) Vital Signs Temp Pulse Pulse Resp BP Pulse Ox O2 Del Method 06/06/24 10:45 77 18 93 Room Air 06/06/24 09:00 Room Air 06/06/24 07:49 84 18 96 Room Air 06/06/24 07:30 36.3 C L 80 16 118/62 88 L Room Air 06/06/24 07:10 79 06/06/24 03:24 36.5 C 87 18 117/64 92 Room Air Laboratory Results Laboratory Results - last 24 hr 06/05/24 06/05/24 06/05/24 12:27 17:25 20:51 WBC RBC Hgb Hct MCV MCH MCHC RDW Std Deviation RDW Coeff of Nick Plt Count MPV PT INR Sodium Potassium Chloride Carbon Dioxide Anion Gap BUN Creatinine Est Cr Clr Drug Dosing eGFR BUN/Creatinine Ratio Glucose POC Glucose 130 H 114 H 136 H Calcium Total Bilirubin AST ALT Alkaline Phosphatase Total Protein Albumin Globulin Albumin/Globulin Ratio 06/06/24 06/06/24 05:39 08:27 WBC 9.28 RBC 2.91 L Hgb 9.2 L Hct 28.9 L MCV 99.3 MCH 31.6 MCHC 31.8 L RDW Std Deviation 71.8 H RDW Coeff of Nick 19.7 H Plt Count 131 MPV 10.8 PT 15.6 H INR 1.5 H Sodium 138 Potassium 4.5 Chloride 103 Carbon Dioxide 21 Anion Gap 14 H BUN 66 H Creatinine 3.13 H Est Cr Clr Drug Dosing 19.5 eGFR 19.59 BUN/Creatinine Ratio 21.1 H Glucose 115 H POC Glucose 126 H Calcium 9.3 Total Bilirubin 1.2 H AST 44 H ALT 23 Alkaline Phosphatase 78 Total Protein 6.3 Albumin 3.3 L Globulin 3.0 Albumin/Globulin Ratio 1.1 PG Care Time/CCT Total # of Minutes Spent Total Time Spent with Patient: Total time spent is greater than 50% in coordination of care (as documented) at patient's floor/unit and/or counseling patient: Coding Level of Care Code 62006 SUB INP/OBS CARE 3/50MIN Diagnoses Acute kidney injury N17.9 Anemia D64.9 Anemia type: unspecified type Cirrhosis K74.60 Adrenal insufficiency E27.40 Hx of aortic valve replacement, mechanical Z95.2 (2) Anemia Anemia type: unspecified type Qualified Code(s): D64.9 - Anemia, unspecified
--- NOTE | 2024-06-06 15:39 | Hospitalist Progress Note ---
Date of Service June 06, 2024 Assessment & Plan (1) Acute kidney injury: Plan: 79-year-old man with complex underlying medical problems who was originally admitted with hematuria. He underwent Rezum procedure on December 05, had urethral stricture which was dilated on February 24, discharged with Marvin catheter. Urology consulted this admission for hematuria. Hematuria had resolved. 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 Mental status has remained poor, likely has underlying dementia with superimposed delirium. 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 He also has a mechanical aortic valve but anticoagulation was discontinued about a month ago when he presented with INR of 10 on warfarin, has been having bleeding problems and significant anemia, his INR remains elevated due to his cirrhosis. He was treated for hepatorenal failure about a month ago at another hospital, was at [facility] on dialysis through mid and still has HD line in place. 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 This admission he had worsening renal function creatinine was 1.7s on admission and ajay, required reinitiation of hemodialysis. VINICIUS caused by hypoperfusion/hypotension -recurrent VINICIUS on CKD, currently requiring hemodialysis. non-oliguric. discussed with Dr. Lima - plan to pause HD and see how he tolerates -monitor UOP and BMP (2) Pneumonia: Plan: Multifocal pneumonia Increased hypoxia with worsened pulmonary infiltrates on chest CT 06/03 and worsened mental status. Both resolved after changing from ceftriaxone to pip- tazo for pneumonia. Also with pleural effusions R>L and pulmonary edema -broader antibiotics - pip-tazo x 5 days (06/03-->06/07). -consider R thoracentesis - he's not hypoxic or dyspneic at this point so may be safer to avoid procedure. (3) Acute metabolic encephalopathy: Plan: ongoing delirium, mental status much worse than recent baseline though suspect underlying neurodegenerative disorder multifactorial causes -- * hepatic encephalopathy (ammonia level 70s last week --> now improved). having several BMs/day on current lactulose * toxic effects from seroquel & benzos (clonazepam) both of which were stopped on 05/22 * acidosis/uremia possibly was contributing, however, did not see improvement with dialysis * infections * hospital delirium MRI brain - no acute or subacute CVA; no old CVA; no ICH or mass supportive care treat individual issues alertness, speech clarity and output improved 06/04-06/05 after starting pip- tazo. remains very confused (4) Rhinovirus infection: Plan: BioFire + on 05/30 supportive care (5) Urinary tract infection with hematuria: Plan: present on admission Known, underlying BPH He underwent Rezum procedure on December 05 had urethral stricture which was dilated on February 24, discharged with Marvin catheter Urologist Dr. Soto irrigated and repositioned his marvin catheter earlier this stay. Clots were evacuated. Hematuria resolved, did not require CBI At time of admission presumed to have had UTI, however urine culture from 05/15 with skin marco and urine and blood cultures from 05/18 were negative Was treated with cefepime then ceftriaxone 05/20-05/24 Now with recurrent UTI: VRE Catheter associated UTI, treated with daptomycin (05/31 - 06/06) - stop after today Recurrent hematuria 06/05-06/06: no clots, maintain marvin, hope to avoid CBI. May be clearing today Resume flomax since BP improved (6) Anemia in chronic kidney disease (CKD): Plan: transfused 1u PRBCs 05/23 ongoing acceptable H/H Hg 9.2 (7) CHF (congestive heart failure): Plan: Chronic HFpEF has mechanical AVR but is no longer on chronic anticoagulation because of cirrhosis and problems with bleeding/coagulopathy Echo 02/29/2024 -- EF 50 to 55%, moderate dilation of RV, LA, RA, mechanical aortic valve in place, trace aortic regurgitation, severe tricuspid regurgitation, diastolic dysfunction grade 3 He is volume overloaded - combination of cirrhosis, VINICIUS, +/- diastolic CHF HD being used for volume control bumex and metoprolol held for hypotension and VINICIUS. Still on midodrine 10 mg tid for hypotension, however, BP trending up recently. (8) Diabetes mellitus, type 2: Plan: Most recent A1c (02/19/2024) 5.1% had hypoglycemia - adrenal insufficiency + poor po intake on many days Hypoglycemia resolved since starting steroids (9) Cirrhosis: Plan: With hepatic encephalopathy, coagulopathy INR 1.4, thrombocytopenia Cont lactulose/rifaximin Cont midodrine TID for low BP Small ascites on chest CT 06/03 MELD-Na 26 based on CMP, INR 1.5 today (10) Muscle tone increased: Plan: appears to have UMN signs on exam hepatic encephalopathy has been aggressively treated quetiapine was stopped MRI brain w/o pathology MRI c-spine with C5 myelomalacia - contributing? but no severe spinal stenosis of c-spine but the C5 issue could be contributing had neuro consult - potentially progressive supranuclear palsy - treatment for this is supportive continue PT and OT (11) Acute hepatic encephalopathy: Plan: acute on chronic hepatic encephalopathy improved, ammonia normalized cont lactulose, rifaximin BID (12) Acidosis: Plan: 2nd to acute kidney injury improved s/p HD (13) History of fractured vertebra: Plan: lower c-spine and upper t-spine see discussion above in #10 (14) Hx of aortic valve replacement, mechanical: Plan: no longer on coumadin due to prior radiation proctitis, hematuria, and coagulopathy - severe problems with bleeding earlier in 2023 at HIGH RISK of clotting of the valve with subsequent embolic phenomenon, etc. 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 most recent cbc -- WBC and platelets normal (17) Hypothyroidism: Plan: TSH 5.5 earlier this admission but no changes in synthroid at this time (18) Adrenal insufficiency: Plan: per daughter's report had steroids while in [place] cosyntropin stim test this admission -- did not pass - did not stim to >18, baseline cortisol was low at 3 hard to interpret cortisol in cirrhosis because of low protein binding globulin, however, may be relatively improved on steroids especially blood pressure and BG transitioned to hydrocortisone 06/03 and wean Plan Sacral decubitus ulcer present on admission - has sacral, ischial wounds, DTI - continue wound care, not improved Depression with anxiety GERD- PPI palliative care consult appreciated - continue current interventions, DNR/DNI updated his daughter Zuri 06/03 by phone and 06/06 in person - discussed my concerns about lack of global progress the last three weeks, persistently poor cognitive and functional status, goals of care updated his and other daughter in person 06/04 DVT ppx - SCDs, chemoppx currently contraindicated prognosis remains poor with persistent delirium, cirrhosis, renal failure, heart failure, recurrent infections (UTIs, pneumonia) and loss of functional status Admission and Anticipated Discharge Date Admission Date: May 18, 2024 Subjective Awake and talking but remains very confused, not aware he's in hospital Denied shortness of breath and denied pain Hematuria since overnight, SQ heparin was never administered Physical Exam 2 Physical Exam: PHYSICAL EXAMINATION Last 24h vital signs reviewed, see documentation in flowsheet General: awake alert HEENT: Normocephalic, atraumatic, pupils round and equal, sclerae anicteric, no conjunctival injection, moist mucus membranes Lungs: normal WOB, occ cough, mildly coarse bilaterally posteriorly Heart: Regular rate and rhythm, no murmurs Rt upper chest HD line Abdomen: Soft, nontender, nondistended. Bowel sounds present Extremities: Warm, dry, well-perfused. anasarca improved Neuro: Alert and only oriented to self not to situation, speech intelligible, very hard of hearing, face symmetric, bradykinesia, has tremor and some rigidity/cogwheeling bilateral UE Psych: Normal affect and behavior Results & Data Results & Data Vital Signs (Past 12 Hours) Vital Signs Temp Pulse Pulse Resp BP Pulse Ox O2 Del Method 06/06/24 15:06 72 18 94 Room Air 06/06/24 14:53 85 06/06/24 12:00 97.7 F 86 20 110/59 L 95 Room Air 06/06/24 10:45 77 18 93 Room Air 06/06/24 09:00 Room Air 06/06/24 07:49 84 18 96 Room Air 06/06/24 07:30 97.3 F L 80 16 118/62 88 L Room Air 06/06/24 07:10 79 06/06/24 03:24 97.7 F 87 18 117/64 92 Room Air Laboratory Results 06/06/24 05:39 06/06/24 05:39 PG Care Time/CCT Total # of Minutes Spent Total Time Spent with Patient: I personally spent: 50 minutes today on clinical care activities including: reviewing chart notes and vital signs reviewing labs discussion with project engineering director, bedside nurse examining and counseling the patient counseling the patient's family, second bedside visit writing orders documentation Coding Level of Care Code 30444 SUB INP/OBS CARE 3/50MIN Diagnoses Acute kidney injury N17.9 Pneumonia J18.9 Acute metabolic encephalopathy G93.41 Rhinovirus infection B34.8 Urinary tract infection with hematuria N39.0; R31.9 Anemia in chronic kidney disease (CKD) N18.9; D63.1 CHF (congestive heart failure) I50.9 Diabetes mellitus, type 2 E11.9 Cirrhosis K74.60 Muscle tone increased M62.89 Acute hepatic encephalopathy K76.82 Acidosis E87.20 History of fractured vertebra Z87.81 Hx of aortic valve replacement, mechanical Z95.2 Hx of aortic aneurysm Z86.79 Pancytopenia D61.818 Hypothyroidism E03.9 Adrenal insufficiency E27.40
[2024-06-07 08:26] LABS: Hematocrit (blood only) 29.3 % (42.0-52.0); Hemoglobin 9.2 g/dl (14.0-18.0); Mean Corpuscular Hemoglobin 31.5 pg (25.0-34.0); Mean Corpuscular Hgb Conc 31.4 g/dL (32.0-36.0); Mean Corpuscular Volume 100.3 fL (80.0-100.0); Mean Platelet Volume 10.7 fL (9.4-12.4); Platelet Count 127 K/uL (130-400); RDW Coefficient of Variation 19.7 % (11.5-14.5); Red Blood Count 2.92 M/uL (4.70-6.10); White Blood Count 7.63 K/ul (4.8-10.8)
[2024-06-07 08:42] LABS: Albumin Level 3.2 gm/dl (3.4-5.0); BUN Creatinine Ratio 21.2 (10-20); Calcium 9.1 mg/dl (8.6-10.3); Creatinine Clr Calc Pharmacy 16.1 ml/min; Phosphorus 5.4 mg/dl (2.5-4.9); Potassium 4.3 mmol/L (3.5-5.1)
--- NOTE | 2024-06-07 10:20 | Nephrology Progress Note ---
Date of Service June 07, 2024 Assessment & Plan (1) Acute kidney injury: Plan: Non-oliguric. Electrolytes acceptable. Creatinine relatively stable. Last HD 06/04. BP and volume status are acceptable. Electrolytes normal. No indication for dialysis today. Daily evaluation will be provided. If kidney function stable tomorrow, HD will be held. Medications are appropriate for kidney dysfunction. (2) Anemia: Plan: Epogen 76763 units with HD 06/04. Iron profile acceptable. (3) Cirrhosis: Plan: Remains on midodrine for associated hypotension. MELD Na 26. Prognosis is unfortunately very poor. (4) Adrenal insufficiency: Plan: Treatment with dexamethasone per hospitalist team. (5) Hx of aortic valve replacement, mechanical: Plan: Not being anticoagulated due to bleeding risk. Admission and Anticipated Discharge Date Admission Date: May 18, 2024 Subjective No acute events overnight. No complaints. No oriented to place or time. Review of Systems Review of Systems: Unobtainable due to cognitive status (limited due to dementia) Physical Exam Constitutional: + frail appearing; no acute distress Eyes: + anicteric sclerae; no conjunctival abn ormality ENMT: Mouth: oral mucous membranes not dry Neck: normal visual inspection and trachea midline Respiratory: normal respiratory effort Auscultation: lungs clear to auscultation bilaterally Cardiovascular: Rate/Rhythm: regular rate Heart Sounds: normal S1 and normal S2 Extremities: + pedal edema; no edema Musculoskeletal: Extremities: no cyanosis and no clubbing Skin: normal turgor; no lesions and no jaundice Neurologic: Motor/Sensory: no tremor and no asterixis Psychiatric: Orientation: alert; + not oriented x 3 Results & Data Vital Signs (Past 12 Hours) Vital Signs Temp Pulse Pulse Resp BP Pulse Ox O2 Del Method 06/07/24 08:30 36.7 C 83 20 125/49 L 90 Room Air 06/07/24 07:36 83 18 90 Room Air 06/07/24 07:31 87 06/07/24 06:41 36.6 C 85 20 134/63 93 Room Air 06/07/24 03:21 36.6 C 92 H 20 137/69 93 Room Air 06/07/24 00:00 90 06/06/24 23:29 36.4 C L 87 18 137/75 93 Room Air Laboratory Results Laboratory Results - last 24 hr 06/06/24 06/06/2424 12:42 17:14 20:50 WBC RBC Hgb Hct MCV MCH MCHC RDW Std Deviation RDW Coeff of Nick Plt Count MPV Sodium Potassium Chloride Carbon Dioxide Anion Gap BUN Creatinine Est Cr Clr Drug Dosing eGFR BUN/Creatinine Ratio Glucose POC Glucose 146 H 177 H 143 H Calcium Phosphorus Albumin 06/07/24 06/07/24 07:49 08:11 WBC 7.63 RBC 2.92 L Hgb 9.2 L Hct 29.3 L MCV 100.3 H MCH 31.5 MCHC 31.4 L RDW Std Deviation 71.0 H RDW Coeff of Nick 19.7 H Plt Count 127 L MPV 10.7 Sodium 137 Potassium 4.3 Chloride 102 Carbon Dioxide 23 Anion Gap 12 H BUN 80 H Creatinine 3.78 H D Est Cr Clr Drug Dosing 16.1 eGFR 15.62 BUN/Creatinine Ratio 21.2 H Glucose 96 POC Glucose 97 Calcium 9.1 Phosphorus 5.4 H Albumin 3.2 L PG Care Time/CCT Total # of Minutes Spent Total Time Spent with Patient: Total time spent is greater than 50% in coordination of care (as documented) at patient's floor/unit and/or counseling patient: Coding Level of Care Code 19841 SUB INP/OBS CARE 3/50MIN Diagnoses Acute kidney injury N17.9 Anemia D64.9 Anemia type: unspecified type Cirrhosis K74.60 Adrenal insufficiency E27.40 Hx of aortic valve replacement, mechanical Z95.2 (2) Anemia Anemia type: unspecified type Qualified Code(s): D64.9 - Anemia, unspecified
--- NOTE | 2024-06-07 15:47 | Hospitalist Progress Note ---
Date of Service June 07, 2024 Assessment & Plan (1) Acute kidney injury: Plan: 79-year-old man with complex underlying medical problems who was originally admitted with hematuria. He underwent Rezum procedure on December 05, had urethral stricture which was dilated on February 24, discharged with Marvin catheter. Urology consulted this admission for hematuria. Hematuria had resolved. 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 Mental status has remained poor, likely has underlying dementia with superimposed delirium. 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 He also has a mechanical aortic valve but anticoagulation was discontinued about a month ago when he presented with INR of 10 on warfarin, has been having bleeding problems and significant anemia, his INR remains elevated due to his cirrhosis. He was treated for hepatorenal failure about a month ago at another hospital, [facility] and still has HD line in place. He was [facility] 3 days [employer]. This admission he had worsening renal function creatinine was 1.7s on admission and ajay, required reinitiation of hemodialysis. VINICIUS caused by hypoperfusion/hypotension There was some hope that dialysis would improve his cognitive status, but I have not observed that to be the case -recurrent VINICIUS on CKD, last HD was 06/04. non-oliguric. discussed with Dr. Lima - holding dialysis and evaluating day by day -Cr increased to 3.78 today, electrolytes and volume status acceptable -monitor UOP and BMP (2) Pneumonia: Plan: Multifocal pneumonia Increased hypoxia with worsened pulmonary infiltrates on chest CT 06/03 and worsened mental status. Both resolved after changing from ceftriaxone to pip- tazo for pneumonia. Also with pleural effusions R>L and pulmonary edema -broader antibiotics - pip-tazo x 5 days (06/03-->06/07). -consider R thoracentesis - he's not hypoxic or dyspneic at this point so may be safer to avoid procedure. (3) Acute metabolic encephalopathy: Plan: ongoing delirium, mental status much worse than recent baseline though suspect underlying neurodegenerative disorder multifactorial causes -- * hepatic encephalopathy (ammonia level 70s last week --> now improved). having several BMs/day on current lactulose * toxic effects from seroquel & benzos (clonazepam) both of which were stopped on 05/22 * acidosis/uremia possibly was contributing, however, did not see improvement with dialysis * infections * hospital delirium MRI brain - no acute or subacute CVA; no old CVA; no ICH or mass supportive care treat individual issues alertness, speech clarity and output improved 06/04-06/05 after starting pip- tazo. remains very confused (4) Rhinovirus infection: Plan: BioFire + on 05/30 supportive care (5) Urinary tract infection with hematuria: Plan: present on admission Known, underlying BPH He underwent Rezum procedure on December 05 had urethral stricture which was dilated on February 24, discharged with Marvin catheter Urologist Dr. Soto irrigated and repositioned his marvin catheter earlier this stay. Clots were evacuated. Hematuria resolved, did not require CBI At time of admission presumed to have had UTI, however urine culture from 05/15 with skin marco and urine and blood cultures from 05/18 were negative Was treated with cefepime then ceftriaxone 05/20-05/24 Now with recurrent UTI: VRE Catheter associated UTI, treated with daptomycin (05/31 - 06/06) - stop after today Recurrent hematuria 06/05-06/07: no clots, maintain marvin, hope to avoid CBI. dark red clear urine today Resumed flomax since BP improved (6) Anemia in chronic kidney disease (CKD): Plan: transfused 1u PRBCs 05/23 ongoing acceptable H/H Hg 9 (7) CHF (congestive heart failure): Plan: Chronic HFpEF has mechanical AVR but is no longer on chronic anticoagulation because of cirrhosis and problems with bleeding/coagulopathy Echo 02/29/2024 -- EF 50 to 55%, moderate dilation of RV, LA, RA, mechanical aortic valve in place, trace aortic regurgitation, severe tricuspid regurgitation, diastolic dysfunction grade 3 He is volume overloaded - combination of cirrhosis, VINICIUS, +/- diastolic CHF HD was being used for volume control bumex and metoprolol held for hypotension and VINICIUS. not on diuretics currently Still on midodrine 10 mg tid for hypotension, however, BP trending up recently. (8) Diabetes mellitus, type 2: Plan: Most recent A1c (02/19/2024) 5.1% had hypoglycemia - adrenal insufficiency + poor po intake on many days Hypoglycemia resolved since starting steroids (9) Cirrhosis: Plan: With hepatic encephalopathy, coagulopathy INR 1.4, thrombocytopenia Cont lactulose/rifaximin Cont midodrine TID for low BP Small ascites on chest CT 06/03 MELD-Na 26 based on CMP, INR 1.5 on 06/06 labs (10) Muscle tone increased: Plan: appears to have UMN signs on exam hepatic encephalopathy has been aggressively treated quetiapine was stopped MRI brain w/o pathology MRI c-spine with C5 myelomalacia - contributing? but no severe spinal stenosis of c-spine but the C5 issue could be contributing had neuro consult - potentially progressive supranuclear palsy - treatment for this is supportive continue PT and OT (11) Acute hepatic encephalopathy: Plan: acute on chronic hepatic encephalopathy improved, ammonia normalized cont lactulose, rifaximin BID (12) History of fractured vertebra: Plan: lower c-spine and upper t-spine see discussion above in #10 (13) Hx of aortic valve replacement, mechanical: Plan: no longer on coumadin due to prior radiation proctitis, hematuria, and coagulopathy - severe problems with bleeding earlier in 2023 at HIGH RISK of clotting of the valve with subsequent embolic phenomenon, etc. 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 most recent cbc -- WBC nl and platelets almost normal at 127 (16) Hypothyroidism: Plan: TSH 5.5 earlier this admission but no changes in synthroid at this time (17) Adrenal insufficiency: Plan: per daughter's report had steroids while in [place] cosyntropin stim test this admission -- did not pass - did not stim to >18, baseline cortisol was low at 3 hard to interpret cortisol in cirrhosis because of low protein binding globulin, however, may be relatively improved on steroids especially blood pressure and BG transitioned to hydrocortisone 06/03 and wean Plan Sacral decubitus ulcer present on admission - has sacral, ischial wounds, DTI - continue wound care, not improved Depression with anxiety GERD- PPI palliative care consult appreciated - continue current interventions, DNR/DNI updated his daughter Zuri 06/03 by phone and 06/06 in person - discussed my concerns about lack of global progress the last three weeks, persistently poor cognitive and functional status, goals of care updated his and other daughter in person 06/04 DVT ppx - SCDs, chemoppx currently contraindicated prognosis remains poor with persistent delirium, cirrhosis, renal failure, heart failure, recurrent infections (UTIs, pneumonia) and loss of functional status Admission and Anticipated Discharge Date Admission Date: May 18, 2024 Subjective "dialysis is that black spot" endorses shortness of breath no pain says he is in [facility] and can identify me as a doctor not oriented to situation Physical Exam 2 Physical Exam: PHYSICAL EXAMINATION Last 24h vital signs reviewed, see documentation in flowsheet General: awake alert HEENT: Normocephalic, atraumatic, pupils round and equal, sclerae anicteric, no conjunctival injection, moist mucus membranes Lungs: normal WOB, CTAB ant Heart: Regular rate and rhythm, no murmurs Rt upper chest HD line Abdomen: Soft, nontender, nondistended. Bowel sounds present Extremities: Warm, dry, well-perfused. anasarca improve compared to last week Neuro: Alert and only oriented to self and hospital not to situation, speech intelligible, very hard of hearing, face symmetric, bradykinesia, has tremor and some rigidity/cogwheeling bilateral UE Psych: Normal affect and behavior Results & Data Results & Data Vital Signs (Past 12 Hours) Vital Signs Temp Pulse Pulse Resp BP Pulse Ox O2 Del Method 06/07/24 15:31 82 20 120/63 94 Nasal Cannula 06/07/24 14:54 94 H 12 93 Nasal Cannula 06/07/24 14:19 97 H 06/07/24 11:55 93 Nasal Cannula 06/07/24 11:43 97.9 F 92 H 20 100/54 L 88 L Room Air 06/07/24 11:17 92 H 20 Nasal Cannula 06/07/24 09:00 Room Air 06/07/24 08:30 98.1 F 83 20 125/49 L 90 Room Air 06/07/24 07:36 83 18 90 Room Air 06/07/24 07:31 87 06/07/24 06:41 97.9 F 85 20 134/63 93 Room Air O2 Flow Rate 06/07/24 15:31 2 06/07/24 14:54 1.5 06/07/24 14:19 12/02/24 11:55 2 06/07/24 11:43 06/07/24 11:17 2 06/07/24 09:00 06/07/24 08:30 06/07/24 07:36 06/07/24 07:31 06/07/24 06:41 Laboratory Results 06/07/24 07:49 06/07/24 07:49 PG Care Time/CCT Total # of Minutes Spent Total Time Spent with Patient: Total time spent is greater than 50% in coordination of care (as documented) at patient's floor/unit and/or counseling patient: Coding Level of Care Code 98375 SUB INP/OBS CARE 235MIN Diagnoses Acute kidney injury N17.9 Pneumonia J18.9 Acute metabolic encephalopathy G93.41 Rhinovirus infection B34.8 Urinary tract infection with hematuria N39.0; R31.9 Anemia in chronic kidney disease (CKD) N18.9; D63.1 CHF (congestive heart failure) I50.9 Diabetes mellitus, type 2 E11.9 Cirrhosis K74.60 Muscle tone increased M62.89 Acute hepatic encephalopathy K76.82 History of fractured vertebra Z87.81 Hx of aortic valve replacement, mechanical Z95.2 Hx of aortic aneurysm Z86.79 Pancytopenia D61.818 Hypothyroidism E03.9 Adrenal insufficiency E27.40
[2024-06-08 08:31] LABS: BUN Creatinine Ratio 20.7 (10-20); Calcium 8.9 mg/dl (8.6-10.3); Potassium 4.3 mmol/L (3.5-5.1)
[2024-06-08 09:33] LABS: Hematocrit (blood only) 29.1 % (42.0-52.0); Hemoglobin 9.2 g/dl (14.0-18.0); Mean Corpuscular Hemoglobin 32.1 pg (25.0-34.0); Mean Corpuscular Hgb Conc 31.6 g/dL (32.0-36.0); Mean Corpuscular Volume 101.4 fL (80.0-100.0); Mean Platelet Volume 10.7 fL (9.4-12.4); Platelet Count 108 K/uL (130-400); RDW Coefficient of Variation 19.9 % (11.5-14.5); RDW Standard Deviation 71.9 fL (36.4-46.3); Red Blood Count 2.87 M/uL (4.70-6.10); White Blood Count 7.37 K/ul (4.8-10.8)
--- NOTE | 2024-06-08 10:25 | Nephrology Progress Note ---
Date of Service June 08, 2024 Assessment & Plan (1) Acute kidney injury: Plan: Non-oliguric. Electrolytes acceptable. Creatinine rising between dialysis treatments. Last HD 06/04. BP acceptable. Electrolytes normal. Lungs sound slightly more congested this AM. Will plan HD for clearance and gentle UF. Maicol has not demonstrated significant renal recovery and appears to remain dialysis dependent. Medications are appropriate for kidney dysfunction. (2) Anemia: Plan: Epogen 06541 units with HD 06/04. Iron profile acceptable. (3) Cirrhosis: Plan: Remains on midodrine for associated hypotension. MELD Na 26. Prognosis is unfortunately very poor. (4) Adrenal insufficiency: Plan: Treatment with dexamethasone per hospitalist team. (5) Hx of aortic valve replacement, mechanical: Plan: Not being anticoagulated due to bleeding risk. Admission and Anticipated Discharge Date Admission Date: May 18, 2024 Subjective No acute events overnight. Remains pleasantly confused. Acknowledges that I am a doctor. Not oriented to place or time. Told me this morning that dialysis has something to do with the rain and the weather. Did not see to understand what the hemodialysis catheter is used for. Breathing comfortably. Review of Systems Review of Systems: All systems reviewed & are unremarkable except as noted in HPI & below Physical Exam Constitutional: + frail appearing; no acute distress Eyes: + anicteric sclerae; no conjunctival abn ormality ENMT: Mouth: oral mucous membranes not dry Neck: normal visual inspection and trachea midline Respiratory: normal respiratory effort Auscultation: lungs clear to auscultation bilaterally and + rhonchi Cardiovascular: Rate/Rhythm: regular rate Heart Sounds: normal S1 and normal S2 Extremities: no edema Musculoskeletal: Extremities: no cyanosis and no clubbing Skin: + turgor decreased; no jaundice Neurologic: Motor/Sensory: no tremor and no asterixis Psychiatric: Orientation: alert; + not oriented x 3 Results & Data Vital Signs (Past 12 Hours) Vital Signs Temp Pulse Pulse Resp BP Pulse Ox O2 Del Method 06/08/24 08:17 36.4 C L 104 H 20 110/66 92 Nasal Cannula 06/08/24 08:00 Nasal Cannula 06/08/24 07:30 86 06/08/24 06:54 91 H 20 94 Nasal Cannula 06/08/24 04:21 36.9 C 96 H 20 141/79 H 96 Nasal Cannula 06/08/24 00:00 36.2 C L 97 H 20 121/71 97 Nasal Cannula O2 Flow Rate 06/08/24 08:17 1 06/08/24 08:00 2 06/08/24 07:30 06/08/24 06:54 3 06/08/24 04:21 2 06/08/24 00:00 2 Laboratory Results Laboratory Results - last 24 hr 06/07/24 06/07/24 06/07/24 12:25 16:51 19:52 WBC RBC Hgb Hct MCV MCH MCHC RDW Std Deviation RDW Coeff of Nick Plt Count MPV Sodium Potassium Chloride Carbon Dioxide Anion Gap BUN Creatinine Est Cr Clr Drug Dosing eGFR BUN/Creatinine Ratio Glucose POC Glucose 164 H 156 H 172 H Calcium 06/08/24 06/08/24 07:18 08:03 WBC 7.37 RBC 2.87 L Hgb 9.2 L Hct 29.1 L MCV 101.4 H MCH 32.1 MCHC 31.6 L RDW Std Deviation 71.9 H RDW Coeff of Nick 19.9 H Plt Count 108 L MPV 10.7 Sodium 137 Potassium 4.3 Chloride 102 Carbon Dioxide 20 L Anion Gap 15 H BUN 90 H Creatinine 4.34 H D Est Cr Clr Drug Dosing 14.0 eGFR 13.23 BUN/Creatinine Ratio 20.7 H Glucose 112 H POC Glucose 114 H Calcium 8.9 PG Care Time/CCT Total # of Minutes Spent Total Time Spent with Patient: Total time spent is greater than 50% in coordination of care (as documented) at patient's floor/unit and/or counseling patient: Coding Level of Care Code 24900 SUB INP/OBS CARE 3/50MIN Diagnoses Acute kidney injury N17.9 Anemia D64.9 Anemia type: unspecified type Cirrhosis K74.60 Adrenal insufficiency E27.40 Hx of aortic valve replacement, mechanical Z95.2 (2) Anemia Anemia type: unspecified type Qualified Code(s): D64.9 - Anemia, unspecified
--- NOTE | 2024-06-08 11:20 | Hospitalist Progress Note ---
Date of Service June 08, 2024 Assessment & Plan (1) Rhinovirus infection: Plan: BioFire + on 05/30 remains in droplet precautions there has been concern for bacterial superinfection of lungs given his imaging findings initially was on rocephin - then broadened to zosyn on 06/03/24 thus, today is day #6 of zosyn plan 7 days then stop for cough - cont tessalon TID + albuterol nebs QID (2) Urinary tract infection due to Enterococcus: Plan: 2nd VRE catheter-associated UTI remains on IV daptomycin - first dose 05/31/24 can d/c daptomycin after today's dose would change out the marvin tomorrow (3) Acute kidney injury: Plan: Presented with Cr 2. Baseline Cr earlier this year <2. About 10 days ago his creatinine had been getting worse with acidosis & volume overload present. Thus, HD resumed He has required HD intermittently since then Did have an HD holiday the last few days, but now BUN & Cr are rising again thus, to have HD today Was hospitalized for nearly a month at [facility] this past fall. Started on HD during that hospitalization. Does have right sided IJ permcath in place still. Per records had hepatorenal syndrome while in [facility]. Following his month-long stay at [place] was discharged to [facility]; stayed there for about 3 weeks. At some point either during his stay at [facility] or while at [facility] his HD was discontinued due to some renal recovery. Cont marvin (not to document UOP, but due to urological issues); should swap it tomorrow due to recent VRE UTI appreciate nephrology assistance (4) Acute metabolic encephalopathy: Plan: despite being awake and talking at times his confusion remains severe Likely multifactorial causes -- * hepatic encephalopathy * toxic effects from seroquel & benzos (clonazepam) both of which were stopped on 05/22 * acidosis and uremia * rhinovirus infection and probable bacterial pneumonia * enterococcal UTI * hospital delirium * potentially other factors MRI brain - no acute or subacute CVA; no old CVA; no ICH or mass supportive care treat individual issues (5) Urinary tract infection with hematuria: Plan: present on admission Known, underlying BPH He underwent Rezum procedure on December 05 had urethral stricture which was dilated on February 24, discharged with Marvin catheter Urologist Dr. Soto irrigated and repositioned his marvin catheter earlier this stay. Clots were evacuated. Hematuria resolved, did not require CBI At time of admission presumed to have had UTI, however urine culture from 05/15 with skin marco and urine and blood cultures from 05/18 were negative Was treated with cefepime then ceftriaxone 05/20-05/24 Cont marvin now and keep in at time of discharge Will need [facility] f/u post-discharge Cont flomax Now with recurrent UTI as in #2 above (6) Anemia in chronic kidney disease (CKD): Plan: transfused 1u PRBCs 05/23 acceptable H/H today (7) CHF (congestive heart failure): Plan: Chronic HFpEF has mechanical AVR but is no longer on chronic anticoagulation because of cirrhosis and problems with bleeding/coagulopathy Echo 02/29/2024 -- EF 50 to 55%, moderate dilation of RV, LA, RA, mechanical aortic valve in place, trace aortic regurgitation, severe tricuspid regurgitation, diastolic dysfunction grade 3 Metoprolol & bumex both stopped due to low BP & VINICIUS Volume overloaded state intermittently thru this stay likely combination of cirrhosis, VINICIUS, +/- diastolic CHF HD being used for volume control - s/p HD today (8) Diabetes mellitus, type 2: Plan: Most recent A1c (02/19/2024) 5.1% Has not required any therapies (9) Cirrhosis: Plan: With hepatic encephalopathy, coagulopathy INR 1.4, thrombocytopenia Cont lactulose/rifaximin Cont midodrine TID for low BP No clinical evidence of SBP (no abd pain, etc) (10) Muscle tone increased: Plan: UMN signs on exam hepatic encephalopathy has been aggressively treated MRI brain w/o pathology MRI c-spine with C5 myelomalacia - contributing?? but no severe spinal stenosis of c-spine but the C5 issue could be contributing had neuro eval this week - PSP?? if he does have PSP there is no specific treatment other than supportive care (11) Acute hepatic encephalopathy: Plan: elevated ammonia in the 70s earlier in the admission clinically improved and ammonia level now wnl cont lactulose BID cont rifaximin BID (12) Acidosis: Plan: 2nd to acute kidney injury Rx - HD (13) History of fractured vertebra: Plan: lower c-spine and upper t-spine see discussion above (14) Hx of aortic valve replacement, mechanical: Plan: no longer on coumadin due to prior radiation proctitis, hematuria, and coagulopathy at HIGH RISK of clotting of the valve with subsequent embolic phenomenon, etc. no CVA seen on MRI Brain this weekend (15) Hx of aortic aneurysm: Plan: with h/o chronic Type A dissection s/p repair [facility] several years ago (2019) (16) Pancytopenia: Plan: presumed 2nd to cirrhosis which is due to [facility] today's cbc -- cell lines acceptable (17) Hypothyroidism: Plan: TSH 5.5 earlier this admission but no changes in synthroid at this time consider repeat TSH (18) Hypotension: Plan: cirrhosis likely to blame - cont midodrine secondary adrenal insufficiency also may have played a role cont hydrocortisone - 40mg qam, 20mg pm - wean slowly since starting steroids BPs have been stable he is s/p albumin, IV fluids, PRBCs this admission all w/o sustained resolution of his hypotension (19) Adrenal insufficiency: Plan: cosyntropin stim test this admission -- did not pass did not stim to >18 baseline cortisol was low at 3 initially on dexamethasone now over to hydrocortisone current dosing - 40mg qam, 20mg qpm wean slowly to basal dosing of 15mg and 5mg, respectively per daughter's report had steroids while in [place] critical illness etc all likely to blame Plan Depression with anxiety GERD- PPI updated pt's daughter Gloria multiple times by phone or in person my last week of work (Gloria's cell - [phone]) will update her tomorrow cont PT, OT appreciate nephrology assistance overall on a global basis he is making little progress Admission and Anticipated Discharge Date Admission Date: May 18, 2024 Subjective patient lying in bed awoke to his name being called he was confused, stating he was in [place] he did not know he was in [place] he was unable to provide any meaningful history or ROS staff report fair appetite has had loose stools Review of Systems Review of Systems: Unobtainable due to cognitive status Physical Exam Physical Exam: gen - very confused, severe bronchial cough present neck - JVD present mouth - MM dry, ?thrush on tongue? heart - RRR, s1 s2, no murmur; mechanical valve closure sound lungs - dense rales L base; decreased BS right base; coughing; no increased work of breathing abd - distended, BS+, NT, no HSM ext - pulses 2+ b/l feet, 1+ edema b/l neuro - increased tone x 4 extremities; +ankle clonus vascular - permcath right upper chest clean Results & Data Results & Data Vital Signs (Past 12 Hours) Vital Signs Temp Pulse Pulse Resp BP Pulse Ox O2 Del Method 06/08/24 08:17 36.4 C L 104 H 20 110/66 92 Nasal Cannula 06/08/24 08:00 Nasal Cannula 06/08/24 07:30 86 06/08/24 06:54 91 H 20 94 Nasal Cannula 06/08/24 04:21 36.9 C 96 H 20 141/79 H 96 Nasal Cannula 06/08/24 00:00 36.2 C L 97 H 20 121/71 97 Nasal Cannula O2 Flow Rate 06/08/24 08:17 1 06/08/24 08:00 2 06/08/24 07:30 06/08/24 06:54 3 06/08/24 04:21 2 06/08/24 00:00 2 Laboratory Results Laboratory Results - last 24 hr 06/07/24 06/07/24 06/07/24 12:25 16:51 19:52 WBC RBC Hgb Hct MCV MCH MCHC RDW Std Deviation RDW Coeff of Nick Plt Count MPV Sodium Potassium Chloride Carbon Dioxide Anion Gap BUN Creatinine Est Cr Clr Drug Dosing eGFR BUN/Creatinine Ratio Glucose POC Glucose 164 H 156 H 172 H Calcium 06/08/24 06/08/24 07:18 08:03 WBC 7.37 RBC 2.87 L Hgb 9.2 L Hct 29.1 L MCV 101.4 H MCH 32.1 MCHC 31.6 L RDW Std Deviation 71.9 H RDW Coeff of Nick 19.9 H Plt Count 108 L MPV 10.7 Sodium 137 Potassium 4.3 Chloride 102 Carbon Dioxide 20 L Anion Gap 15 H BUN 90 H Creatinine 4.34 H D Est Cr Clr Drug Dosing 14.0 eGFR 13.23 BUN/Creatinine Ratio 20.7 H Glucose 112 H POC Glucose 114 H Calcium 8.9 PG Care Time/CCT Total # of Minutes Spent Total Time Spent with Patient: Total time spent is greater than 50% in coordination of care (as documented) at patient's floor/unit and/or counseling patient: Coding Level of Care Code 91185 SUB INP/OBS CARE MIN Diagnoses Rhinovirus infection B34.8 Urinary tract infection due to Enterococcus N39.0; B95.2 Acute kidney injury N17.9 Acute metabolic encephalopathy G93.41 Urinary tract infection with hematuria N39.0; R31.9 Anemia in chronic kidney disease (CKD) N18.9; D63.1 CHF (congestive heart failure) I50.9 Diabetes mellitus, type 2 E11.9 Cirrhosis K74.60 Muscle tone increased M62.89 Acute hepatic encephalopathy K76.82 Acidosis E87.20 History of fractured vertebra Z87.81 Hx of aortic valve replacement, mechanical Z95.2 Hx of aortic aneurysm Z86.79 Pancytopenia D61.818 Hypothyroidism E03.9 Hypotension I95.9 Hypotension type: unspecified hypotension type Adrenal insufficiency E27.40 (18) Hypotension Hypotension type: unspecified hypotension type Qualified Code(s): I95.9 - Hypotension, unspecified
[2024-06-08] MEDS ORDERED: MICONAZOLE NITRATE POWDER 85 GM EXT PRN (18:22)
[2024-06-09] MEDS: HYDROCORTISONE 10 MG TAB PO SCH ×2 (09:08→16:30)
[2024-06-09 09:14] LABS: BUN Creatinine Ratio 18.8 (10-20); Calcium 8.7 mg/dl (8.6-10.3); Creatinine Clr Calc Pharmacy 19.8 ml/min; Potassium 4.1 mmol/L (3.5-5.1); Thyroid Stimulating Hormone 0.437 uIu/ml (0.300-4.500)
--- NOTE | 2024-06-09 09:56 | Nephrology Progress Note ---
Date of Service June 09, 2024 Assessment & Plan (1) Acute kidney injury: Plan: Non-oliguric. Creatinine has continued rising between dialysis treatments. Adequate UF and clearance with HD yesterday. Adequate clearance and UF with treatment. Volume status acceptable. Appears to remain dialysis dependent - may require ~twice weekly treatment based on recent assessment. Will continue to monitor. Medications are appropriate for kidney dysfunction. (2) Anemia: Plan: Epogen 29883 units with HD 06/04. Iron profile acceptable. (3) Cirrhosis: Plan: Remains on midodrine for associated hypotension. MELD Na 26. Prognosis is unfortunately very poor. (4) Adrenal insufficiency: Plan: Treatment per hospitalist team. Admission and Anticipated Discharge Date Admission Date: May 18, 2024 Subjective No acute events overnight. Maicol tolerated HD reasonably well yesterday. No complications with treatment. He is breathing comfortably without supplemental oxygen this AM. Review of Systems Review of Systems: Unobtainable due to cognitive status (limited due to dementia but denies pain or dyspnea, appetite poor but no other GI complaints. BM this AM. ) Physical Exam Constitutional: + frail appearing; no acute distress Eyes: + anicteric sclerae; no conjunctival abn ormality ENMT: Mouth: oral mucous membranes not dry Neck: normal visual inspection and trachea midline Respiratory: normal respiratory effort Auscultation: lungs clear to auscultation bilaterally Cardiovascular: Rate/Rhythm: regular rate Heart Sounds: normal S1 and normal S2 Extremities: no edema Musculoskeletal: Extremities: no cyanosis and no clubbing Skin: normal turgor; no jaundice Neurologic: Motor/Sensory: no tremor and no asterixis Psychiatric: Orientation: alert; + not oriented x 3 Results & Data Vital Signs (Past 12 Hours) Vital Signs Temp Pulse Pulse Pulse Resp BP BP 06/09/24 07:28 36.2 C L 87 18 96/52 L 94/40 L 06/09/24 07:15 82 06/09/24 06:54 70 16 06/09/24 05:52 06/09/24 03:41 06/09/24 02:52 36.5 C 82 20 108/62 06/08/24 22:14 80 06/08/24 22:14 36.4 C L 88 82 18 109/51 L Pulse Ox O2 Del Method O2 Flow Rate 06/09/24 07:28 93 Room Air 06/09/24 07:15 06/09/24 06:54 94 Room Air 06/09/24 05:52 94 Room Air 06/09/24 03:41 93 Room Air 06/09/24 02:52 96 Nasal Cannula 2 06/08/24 22:14 06/08/24 22:14 95 Nasal Cannula 2 Laboratory Results Laboratory Results - last 24 hr 06/08/24 06/08/24 06/08/24 11:54 12:13 17:14 Sodium Potassium Chloride Carbon Dioxide Anion Gap BUN Creatinine Est Cr Clr Drug Dosing eGFR BUN/Creatinine Ratio Glucose POC Glucose 144 H 217 H Calcium TSH Stool Occult Bld Scrn Stl C. diff Tox B Gene Negative Cdiff Gene 06/08/24 06/08/24 06/09/24 20:10 Unknown 07:19 Sodium 139 Potassium 4.1 Chloride 103 Carbon Dioxide 24 Anion Gap 12 H BUN 58 H D Creatinine 3.08 H D Est Cr Clr Drug Dosing 19.8 eGFR 19.97 BUN/Creatinine Ratio 18.8 Glucose 102 H POC Glucose 176 H Calcium 8.7 TSH 0.437 Stool Occult Bld Scrn Negative Stl C. diff Tox B Gene 06/09/24 08:43 Sodium Potassium Chloride Carbon Dioxide Anion Gap BUN Creatinine Est Cr Clr Drug Dosing eGFR BUN/Creatinine Ratio Glucose POC Glucose 96 Calcium TSH Stool Occult Bld Scrn Stl C. diff Tox B Gene PG Care Time/CCT Total # of Minutes Spent Total Time Spent with Patient: Total time spent is greater than 50% in coordination of care (as documented) at patient's floor/unit and/or counseling patient: Coding Level of Care Code 87075 SUB INP/OBS CARE 3/50MIN Diagnoses Acute kidney injury N17.9 Anemia D64.9 Anemia type: unspecified type Cirrhosis K74.60 Adrenal insufficiency E27.40 (2) Anemia Anemia type: unspecified type Qualified Code(s): D64.9 - Anemia, unspecified
--- NOTE | 2024-06-09 17:22 | Hospitalist Progress Note ---
Date of Service June 09, 2024 Assessment & Plan (1) Rhinovirus infection: Plan: BioFire + on 05/30 remains in droplet precautions probable bacterial superinfection/pneumonia of lungs given his imaging findings initially was on rocephin - then broadened to zosyn on 06/03/24 thus, today is day #7 of zosyn stop zosyn after today's dose for cough - cont tessalon TID + albuterol nebs - change to BID (2) Urinary tract infection due to Enterococcus: Plan: 2nd VRE catheter-associated UTI completed 7 days of IV daptomycin needs marvin exchanged given the infection OR just remove the marvin since UOP each day is very low (200cc or less) (3) Acute kidney injury: Plan: Presented with Cr 2. Baseline Cr earlier this year <2. About 10 days ago his creatinine had been getting worse with acidosis & volume overload present. Thus, HD resumed He has required HD intermittently since then Did have an HD holiday the last few days, but now BUN & Cr ajay again s/p HD yesterday -- 2 L UF removed Was hospitalized for nearly a month at [facility] this past fall. Started on HD during that hospitalization. Does have right sided IJ permcath in place still. Per records had hepatorenal syndrome while in [facility]. Following his month-long stay at [place] was discharged to [facility]; stayed there for about 3 weeks. At some point either during his stay at [facility] or while at [facility] his HD was discontinued due to some renal recovery. appreciate nephrology assistance (4) Acute metabolic encephalopathy: Plan: seems to be improving awake/alert eating better no lethargy -- but still quite confused Likely multifactorial causes -- * hepatic encephalopathy * toxic effects from seroquel & benzos (clonazepam) both of which were stopped on 05/22 * acidosis and uremia * rhinovirus infection and probable bacterial pneumonia * enterococcal UTI * hospital delirium * potentially other factors MRI brain - no acute or subacute CVA; no old CVA; no ICH or mass supportive care treat individual issues (5) Urinary tract infection with hematuria: Plan: present on admission Known, underlying BPH He underwent Rezum procedure on December 05 had urethral stricture which was dilated on February 24, discharged with Marvin catheter Urologist Dr. Soto irrigated and repositioned his marvin catheter earlier this stay. Clots were evacuated. Hematuria resolved, did not require CBI At time of admission presumed to have had UTI, however urine culture from 05/15 with skin marco and urine and blood cultures from 05/18 were negative Was treated with cefepime then ceftriaxone 05/20-05/24 Now with resolving VRE UTI s/p daptomycin course Cont flomax Cont marvin ? exchange it? d/c it? (6) Anemia in chronic kidney disease (CKD): Plan: transfused 1u PRBCs 05/23 H/H have remained acceptable (7) CHF (congestive heart failure): Plan: Chronic HFpEF has mechanical AVR but is no longer on chronic anticoagulation because of cirrhosis and problems with bleeding/coagulopathy Echo 02/29/2024 -- EF 50 to 55%, moderate dilation of RV, LA, RA, mechanical aortic valve in place, trace aortic regurgitation, severe tricuspid regurgitation, diastolic dysfunction grade 3 Metoprolol & bumex both stopped due to low BP & VINICIUS Volume overloaded state intermittently thru this stay likely combination of cirrhosis, VINICIUS, +/- diastolic CHF HD being used for volume control - s/p HD yesterday (8) Diabetes mellitus, type 2: Plan: Most recent A1c (02/19/2024) 5.1% Has not required any therapies (9) Cirrhosis: Plan: With hepatic encephalopathy, coagulopathy INR 1.4, thrombocytopenia Cont lactulose/rifaximin Cont midodrine TID for low BP No clinical evidence of SBP (no abd pain, etc) (10) Muscle tone increased: Plan: UMN signs on exam hepatic encephalopathy has been aggressively treated MRI brain w/o pathology MRI c-spine with C5 myelomalacia - contributing?? but no severe spinal stenosis of c-spine but the C5 issue could be contributing had neuro eval this week - PSP?? if he does have PSP there is no specific treatment other than supportive care (11) Acute hepatic encephalopathy: Plan: elevated ammonia in the 70s earlier in the admission clinically improved and ammonia level now wnl cont lactulose BID cont rifaximin BID (12) Acidosis: Plan: 2nd to acute kidney injury Rx - HD (13) History of fractured vertebra: Plan: lower c-spine and upper t-spine see discussion above (14) Hx of aortic valve replacement, mechanical: Plan: no longer on coumadin due to prior radiation proctitis, hematuria, and coagulopathy at HIGH RISK of clotting of the valve with subsequent embolic phenomenon, etc. no CVA seen on MRI Brain this weekend (15) Hx of aortic aneurysm: Plan: with h/o chronic Type A dissection s/p repair [facility] several years ago (2019) (16) Pancytopenia: Plan: presumed 2nd to cirrhosis which is due to [facility] today's cbc -- cell lines acceptable (17) Hypothyroidism: Plan: TSH 5.5 earlier this admission but no changes in synthroid at this time consider repeat TSH (18) Hypotension: Plan: resolved cirrhosis likely to blame - cont midodrine secondary adrenal insufficiency also may have played a role cont hydrocortisone - 40mg qam, 20mg pm - wean slowly (cut to 30mg am and 10mg pm today) since starting steroids BPs have been stable he is s/p albumin, IV fluids, PRBCs this admission all w/o sustained resolution of his hypotension (19) Adrenal insufficiency: Plan: cosyntropin stim test this admission -- did not pass did not stim to >18 baseline cortisol was low at 3 initially on dexamethasone now over to hydrocortisone current dosing - 40mg qam, 20mg qpm wean slowly to basal dosing of 15mg and 5mg, respectively per daughter's report had steroids while in [place] critical illness etc all likely to blame Plan Depression with anxiety GERD- PPI updated pt's daughter Gloria multiple times by phone or in person my last week of work (Gloria's cell - [phone]) need to update her or his tomorrow cont PT, OT appreciate nephrology assistance although less confusion & eating better prognosis remains very poor rehab potential is quite poor Admission and Anticipated Discharge Date Admission Date: May 18, 2024 Subjective no events tele overnight wnl patient eating well - 100% of meals per nursing documentation stool c diff returned negative patient watching TV during the visit in good spirits thinks he is in [facility] at one point he said his mouth hurt because he "had a fish about this long" Review of Systems Review of Systems: cv - no chest pain pulm - no dyspnea GI - no abd pain or N/V Physical Exam Physical Exam: gen -awake/alert but remains confused; but in good spirits today; still with harsh dry bronchial cough neck - JVD resolved mouth - ?thrush on tongue?; MM dry heart - RRR, s1 s2, no murmur; mechanical valve closure sound lungs - dense rales L base remain; decreased BS right base; still coughing; no increased work of breathing abd - distended, BS+, NT, no HSM ext - pulses 2+ b/l feet, trace edema b/l neuro - increased tone x 4 extremities; +ankle clonus vascular - permcath right upper chest Results & Data Results & Data Vital Signs (Past 12 Hours) Vital Signs Temp Pulse Pulse Pulse Resp BP BP 06/09/24 17:06 36.3 C L 91 H 16 125/64 06/09/24 15:00 90 06/09/24 11:50 36.4 C L 87 16 99/44 L 06/09/24 10:00 06/09/24 07:28 36.2 C L 87 18 96/52 L 94/40 L 06/09/24 07:15 82 06/09/24 06:54 70 16 06/09/24 05:52 Pulse Ox O2 Del Method 06/09/24 17:06 94 Room Air 06/09/24 15:00 06/09/24 11:50 95 Room Air 06/09/24 10:00 Room Air 06/09/24 07:28 93 Room Air 06/09/24 07:15 06/09/24 06:54 94 Room Air 06/09/24 05:52 94 Room Air Laboratory Results Laboratory Results - last 24 hr 06/09/24 06/09/24 06/09/24 07:19 08:43 13:50 Sodium 139 Potassium 4.1 Chloride 103 Carbon Dioxide 24 Anion Gap 12 H BUN 58 H D Creatinine 3.08 H D Est Cr Clr Drug Dosing 19.8 eGFR 19.97 BUN/Creatinine Ratio 18.8 Glucose 102 H POC Glucose 96 141 H Calcium 8.7 TSH 0.437 PG Care Time/CCT Total # of Minutes Spent Total Time Spent with Patient: Total time spent is greater than 50% in coordination of care (as documented) at patient's floor/unit and/or counseling patient: Coding Level of Care Code 51471 SUB INP/OBS CARE 2/35MIN Diagnoses Rhinovirus infection B34.8 Urinary tract infection due to Enterococcus N39.0; B95.2 Acute kidney injury N17.9 Acute metabolic encephalopathy G93.41 Urinary tract infection with hematuria N39.0; R31.9 Anemia in chronic kidney disease (CKD) N18.9; D63.1 CHF (congestive heart failure) I50.9 Diabetes mellitus, type 2 E11.9 Cirrhosis K74.60 Muscle tone increased M62.89 Acute hepatic encephalopathy K76.82 Acidosis E87.20 History of fractured vertebra Z87.81 Hx of aortic valve replacement, mechanical Z95.2 Hx of aortic aneurysm Z86.79 Pancytopenia D61.818 Hypothyroidism E03.9 Hypotension I95.9 Hypotension type: unspecified hypotension type Adrenal insufficiency E27.40 (18) Hypotension Hypotension type: unspecified hypotension type Qualified Code(s): I95.9 - Hypotension, unspecified
[2024-06-09] MEDS: ALBUT/IPRATROP 3MG/0.5MG NEB 3 ML VIAL NEB SCH (20:26)
[2024-06-09] MEDS: NYSTATIN SUSP 500,000 U/5 ML UDC PO SCH (21:19)
[2024-06-10 08:58] LABS: BUN Creatinine Ratio 20.2 (10-20); Calcium 8.7 mg/dl (8.6-10.3); Creatinine Clr Calc Pharmacy 15.9 ml/min; Potassium 4.7 mmol/L (3.5-5.1)
--- NOTE | 2024-06-10 10:32 | Nephrology Progress Note ---
Date of Service June 10, 2024 Assessment & Plan (1) Acute kidney injury: Plan: Non-oliguric. Creatinine has continued rising between dialysis treatments. Volume status acceptable. Adequate clearance and UF with treatment. Appears to remain dialysis dependent - I suspect ~twice weekly treatment would be acceptable for now. Will plan a MF schedule while continuing to monitor kidney function. Medications are appropriate for kidney dysfunction. (2) Anemia: Plan: Epogen 52706 units with HD 06/04. Iron profile acceptable. (3) Cirrhosis: Plan: Remains on midodrine for associated hypotension. MELD Na 26. Prognosis is unfortunately very poor. (4) Adrenal insufficiency: Plan: Treatment per hospitalist team. Admission and Anticipated Discharge Date Admission Date: May 18, 2024 Subjective No acute events overnight. Remains pleasantly confused. Not oriented to place or time. Eating with assistance. Reasonable urine output. Breathing comfortably. Review of Systems Review of Systems: All systems reviewed & are unremarkable except as noted in HPI & below Physical Exam Constitutional: well developed and + frail appearing; no acute distress Eyes: + anicteric sclerae; no conjunctival abn ormality ENMT: Mouth: oral mucous membranes not dry Neck: normal visual inspection and trachea midline Respiratory: normal respiratory effort Auscultation: lungs clear to auscultation bilaterally Cardiovascular: Rate/Rhythm: regular rate Heart Sounds: normal S1 and normal S2 Extremities: + pedal edema Musculoskeletal: Extremities: no cyanosis and no clubbing Skin: normal turgor and + turgor decreased; no lesions and no jaundice Neurologic: Motor/Sensory: no tremor and no asterixis Psychiatric: Orientation: alert; + not oriented x 3 Results & Data Vital Signs (Past 12 Hours) Vital Signs Temp Pulse Pulse Pulse Resp BP BP 06/10/24 08:17 36.6 C 92 H 18 110/55 L 06/10/24 07:44 90 06/10/24 03:42 36.8 C 92 H 18 147/72 H 06/09/24 23:24 36.7 C 92 H 18 121/65 Pulse Ox O2 Del Method 06/10/24 08:17 93 Room Air 06/10/24 07:44 06/10/24 03:42 95 Room Air 06/09/24 23:24 95 Room Air Laboratory Results Laboratory Results - last 24 hr 12/04/24 12/04/24 12/04/24 13:50 17:31 20:14 Sodium Potassium Chloride Carbon Dioxide Anion Gap BUN Creatinine Est Cr Clr Drug Dosing eGFR BUN/Creatinine Ratio Glucose POC Glucose 141 H 165 H 128 H Calcium 06/10/24 06/10/24 07:52 07:57 Sodium 135 L Potassium 4.7 Chloride 100 Carbon Dioxide 22 Anion Gap 13 H BUN 77 H Creatinine 3.82 H D Est Cr Clr Drug Dosing 15.9 eGFR 15.43 BUN/Creatinine Ratio 20.2 H Glucose 134 H POC Glucose 141 H Calcium 8.7 PG Care Time/CCT Total # of Minutes Spent Total Time Spent with Patient: Total time spent is greater than 50% in coordination of care (as documented) at patient's floor/unit and/or counseling patient: Coding Level of Care Code 04896 SUB INP/OBS CARE 3/50MIN Diagnoses Acute kidney injury N17.9 Anemia D64.9 Anemia type: unspecified type Cirrhosis K74.60 Adrenal insufficiency E27.40 (2) Anemia Anemia type: unspecified type Qualified Code(s): D64.9 - Anemia, unspecified
--- NOTE | 2024-06-10 19:27 | Hospitalist Progress Note ---
Date of Service June 10, 2024 Assessment & Plan (1) Rhinovirus infection: Plan: BioFire + on 05/30 remains in droplet precautions probable bacterial superinfection/pneumonia of lungs given his imaging findings initially was on rocephin - then broadened to zosyn on 06/03/24 completed 7 day course of zosyn for cough - cont tessalon TID + albuterol BID (2) Urinary tract infection due to Enterococcus: Plan: 2nd VRE catheter-associated UTI completed 7 days of IV daptomycin needs marvin exchanged given the infection OR just remove the marvin since UOP each day is very low (200cc or less) will have to ask urology about their opinion re: the marvin (3) Acute kidney injury: Plan: Presented with Cr 2. Baseline Cr earlier this year <2. About 10 days ago his creatinine had been getting worse with acidosis & volume overload present. Thus, HD resumed He has required HD intermittently since then Did have an HD holiday much of the last week, but then his BUN & Cr ajay again necessitating HD again Nephrology is thinking, based on his BUN and Cr levels rising in between dialysis days, that he will need ongoing HD Probably Mondays/Fridays I made his family aware of this today Was hospitalized for nearly a month at [facility] this past fall. Started on HD during that hospitalization. Does have right sided IJ permcath in place still. Per records had hepatorenal syndrome while in [facility]. Following his month-long stay at [place] was discharged to [facility]; stayed there for about 3 weeks. At some point either during his stay at [facility] or while at [facility] his HD was discontinued due to some renal recovery. appreciate nephrology assistance (4) Acute metabolic encephalopathy: Plan: improving --> more awake/alert, joking/laughing, participating in conversation more, eating better no lethargy but unfortunately he is still quite confused Likely multifactorial causes -- * hepatic encephalopathy * toxic effects from seroquel & benzos (clonazepam) both of which were stopped on 05/22 * acidosis and uremia * rhinovirus infection and probable bacterial pneumonia * enterococcal UTI * hospital delirium * potentially other factors MRI brain - no acute or subacute CVA; no old CVA; no ICH or mass supportive care treat individual issues (5) Urinary tract infection with hematuria: Plan: present on admission Known, underlying BPH He underwent Rezum procedure on December 05 had urethral stricture which was dilated on February 24, discharged with Marvin catheter Urologist Dr. Soto irrigated and repositioned his marvin catheter earlier this stay. Clots were evacuated. Hematuria resolved, did not require CBI At time of admission presumed to have had UTI, however urine culture from 05/15 with skin marco and urine and blood cultures from 05/18 were negative Was treated with cefepime then ceftriaxone 05/20-05/24 Now with resolving VRE UTI s/p daptomycin course Cont flomax Cont marvin ? exchange it? d/c it? will d/w urology tomorrow (6) Anemia in chronic kidney disease (CKD): Plan: transfused 1u PRBCs 05/23 H/H have remained acceptable (7) CHF (congestive heart failure): Plan: Chronic HFpEF has mechanical AVR but is no longer on chronic anticoagulation because of cirrhosis and problems with bleeding/coagulopathy Echo 02/29/2024 -- EF 50 to 55%, moderate dilation of RV, LA, RA, mechanical aortic valve in place, trace aortic regurgitation, severe tricuspid regurgitation, diastolic dysfunction grade 3 Metoprolol & bumex both stopped due to low BP & VINICIUS Volume overloaded state intermittently thru this stay likely combination of cirrhosis, VINICIUS, +/- diastolic CHF HD being used for volume control - s/p HD earlier this week (8) Diabetes mellitus, type 2: Plan: Most recent A1c (02/19/2024) 5.1% Has not required any therapies (9) Cirrhosis: Plan: With hepatic encephalopathy, coagulopathy INR 1.4, thrombocytopenia Cont lactulose/rifaximin Cont midodrine TID for low BP No clinical evidence of SBP (no abd pain, etc) (10) Muscle tone increased: Plan: UMN signs on exam hepatic encephalopathy has been aggressively treated MRI brain w/o pathology MRI c-spine with C5 myelomalacia - contributing?? but no severe spinal stenosis of c-spine but the C5 issue could be contributing had neuro eval this week - PSP?? if he does have PSP there is no specific treatment other than supportive care (11) Acute hepatic encephalopathy: Plan: elevated ammonia in the 70s earlier in the admission clinically improved and ammonia level now wnl cont lactulose BID cont rifaximin BID c diff negative (12) Acidosis: Plan: 2nd to acute kidney injury Rx - HD (13) History of fractured vertebra: Plan: lower c-spine and upper t-spine see discussion above (14) Hx of aortic valve replacement, mechanical: Plan: no longer on coumadin due to prior radiation proctitis, hematuria, and coagulopathy at HIGH RISK of clotting of the valve with subsequent embolic phenomenon, etc. no CVA seen on MRI Brain this weekend (15) Hx of aortic aneurysm: Plan: with h/o chronic Type A dissection s/p repair [facility] several years ago (2019) (16) Pancytopenia: Plan: presumed 2nd to cirrhosis which is due to [facility] today's cbc -- cell lines acceptable (17) Hypothyroidism: Plan: TSH 5.5 earlier this admission but no changes in synthroid at this time repeat TSH wnl (18) Hypotension: Plan: resolved cirrhosis likely to blame - cont midodrine secondary adrenal insufficiency also may have played a role cont hydrocortisone - 40mg qam, 20mg pm - wean slowly (cut to 30mg am and 10mg pm today) since starting steroids BPs have been stable he is s/p albumin, IV fluids, PRBCs this admission all w/o sustained resolution of his hypotension (19) Adrenal insufficiency: Plan: cosyntropin stim test this admission -- did not pass did not stim to >18 baseline cortisol was low at 3 initially on dexamethasone now over to hydrocortisone wean slowly to basal dosing of 15mg and 5mg, respectively will wean today and again tomorrow per daughter's report had steroids while in [place] critical illness etc all likely to blame Plan Depression with anxiety GERD- PPI updated pt's daughter Gloria (Gloria's cell - [phone]) and patient's extensively at bedside today topics discussed - ongoing HD needs, right sided pleural effusion (will obtain cxr tomorrow to reassess size), mental status, need for rehab (poor [facility] candidate), marvin, etc. all questions answered cont PT, OT appreciate nephrology assistance although less confusion & eating better prognosis remains very poor rehab potential is poor Admission and Anticipated Discharge Date Admission Date: May 18, 2024 Subjective patient sitting in the chair daughter/ present at bedside today he was very jovial, but still quite confused; he thought he was in [place] today he was unable to give any meaningful history or ROS he was unable to participate in any goal planning I did discuss disposition heavily with his /daughter discussed that he is too weak to do 3 hours of therapy each day at [facility] thus, he will have to rehab at lower level of care (SNF, swing bed program etc) stated I would update Jenna Mackenzie from case management in the am did suggest that we have palliative care meet with them again to discuss goals of care in the event he doesn't improve while in rehab and/or if he worsens clinically discussed ongoing HD likely Mondays/Fridays moving forward patient still with cough Review of Systems Review of Systems: denied pain in any location otherwise unable to give ROS accurately Physical Exam Physical Exam: gen -awake/alert but remains confused; in good spirits again today; coughing at times; sitting in recliner chair neck - JVD resolved mouth - thrush improved, MM still dry heart - RRR, s1 s2, no murmur; mechanical valve closure sound lungs - rales L base as well as anterior L chest; decreased BS right base; no wheezing; no increased work of breathing abd - distended, BS+, NT, no HSM ext - pulses 2+ b/l feet, no edema b/l neuro - increased tone x 4 extremities; +ankle clonus (2-3 beats) vascular - permcath right upper chest clean Results & Data Results & Data Vital Signs (Past 12 Hours) Vital Signs Temp Pulse Pulse Pulse Resp BP BP 06/10/24 16:33 91 H 06/10/24 15:42 36.5 C 90 20 121/67 06/10/24 11:35 36.6 C 91 H 20 117/65 06/10/24 08:17 36.6 C 92 H 18 110/55 L 06/10/24 08:00 06/10/24 07:44 90 Pulse Ox O2 Del Method 06/10/24 16:33 06/10/24 15:42 93 Room Air 06/10/24 11:35 93 Room Air 06/10/24 08:17 93 Room Air 06/10/24 08:00 Room Air 06/10/24 07:44 Laboratory Results Laboratory Results - last 24 hr 06/09/24 06/10/24 06/10/24 20:14 07:52 07:57 Sodium 135 L Potassium 4.7 Chloride 100 Carbon Dioxide 22 Anion Gap 13 H BUN 77 H Creatinine 3.82 H D Est Cr Clr Drug Dosing 15.9 eGFR 15.43 BUN/Creatinine Ratio 20.2 H Glucose 134 H POC Glucose 128 H 141 H Calcium 8.7 06/10/24 06/10/24 12:01 17:16 Sodium Potassium Chloride Carbon Dioxide Anion Gap BUN Creatinine Est Cr Clr Drug Dosing eGFR BUN/Creatinine Ratio Glucose POC Glucose 114 H 218 H Calcium PG Care Time/CCT Total # of Minutes Spent Total Time Spent with Patient: Total time spent is greater than 50% in coordination of care (as documented) at patient's floor/unit and/or counseling patient: Coding Level of Care Code 75811 SUB INP/OBS CARE 3/50MIN Diagnoses Rhinovirus infection B34.8 Urinary tract infection due to Enterococcus N39.0; B95.2 Acute kidney injury N17.9 Acute metabolic encephalopathy G93.41 Urinary tract infection with hematuria N39.0; R31.9 Anemia in chronic kidney disease (CKD) N18.9; D63.1 CHF (congestive heart failure) I50.9 Diabetes mellitus, type 2 E11.9 Cirrhosis K74.60 Muscle tone increased M62.89 Acute hepatic encephalopathy K76.82 Acidosis E87.20 History of fractured vertebra Z87.81 Hx of aortic valve replacement, mechanical Z95.2 Hx of aortic aneurysm Z86.79 Pancytopenia D61.818 Hypothyroidism E03.9 Hypotension I95.9 Hypotension type: unspecified hypotension type Adrenal insufficiency E27.40 (18) Hypotension Hypotension type: unspecified hypotension type Qualified Code(s): I95.9 - Hypotension, unspecified
[2024-06-11 07:06] LABS: Hematocrit (blood only) 29.8 % (42.0-52.0); Hemoglobin 9.4 g/dl (14.0-18.0); Mean Corpuscular Hemoglobin 31.6 pg (25.0-34.0); Mean Corpuscular Hgb Conc 31.5 g/dL (32.0-36.0); Mean Corpuscular Volume 100.3 fL (80.0-100.0); Mean Platelet Volume 10.8 fL (9.4-12.4); Platelet Count 104 K/uL (130-400); RDW Coefficient of Variation 19.4 % (11.5-14.5); RDW Standard Deviation 71.9 fL (36.4-46.3); Red Blood Count 2.97 M/uL (4.70-6.10); White Blood Count 7.95 K/ul (4.8-10.8)
[2024-06-11] MEDS: HYDROCORTISONE 10 MG TAB PO SCH (08:29)
--- NOTE | 2024-06-11 09:00 | XRay Report ---
XR chest 1V portable CLINICAL HISTORY: R pleural effusion/decreased BS COMPARISON STUDY: Chest radiograph and chest CT June 03, 2024. FINDINGS: Dual lumen right internal jugular central venous catheter is in place. There are median tavares rnotomy wires. Cardiomegaly is unchanged. Moderate right and small left pleural effusions are noted. Interstitial thickening persists. Bilateral airspace opacities are again noted. There is no pneumotho rax. IMPRESSION: 1. Cardiomegaly with persistent pulmonary edema. 2. Moderate right and small left pleural effusions. Associated bibasilar opacities favor atelectasis although pneumonia could appear similar. ACT 112: Negative or not required by law. Electronically signed by: Atif Langston M.D. 06/11/2024 8:59 AM
[2024-06-11 09:42] LABS: BUN Creatinine Ratio 20.3 (10-20); Calcium 8.7 mg/dl (8.6-10.3); Creatinine Clr Calc Pharmacy 13.6 ml/min; Potassium 4.8 mmol/L (3.5-5.1)
--- NOTE | 2024-06-11 10:30 | Nephrology Progress Note ---
Date of Service June 11, 2024 Assessment & Plan (1) Acute kidney injury: Plan: Non-oliguric. Creatinine has continued rising between dialysis treatments. Appears to remain dialysis dependent requiring clearance ~twice weekly. Orders for HD today were entered into the EHR and reviewed with the diaylsis RN. Medications are appropriate for kidney dysfunction. (2) Anemia: Plan: Epogen 19199 units with HD 06/04. Iron profile acceptable. (3) Cirrhosis: Plan: Remains on midodrine for associated hypotension. MELD Na 26. Prognosis is unfortunately very poor. Admission and Anticipated Discharge Date Admission Date: May 18, 2024 Subjective No acute events overnight. No complaints this AM. Review of Systems Review of Systems: All systems reviewed & are unremarkable except as noted in HPI & below Physical Exam Constitutional: + frail appearing; no acute distress Eyes: + anicteric sclerae; no conjunctival abn ormality ENMT: Mouth: oral mucous membranes not dry Neck: normal visual inspection and trachea midline Respiratory: normal respiratory effort and + cough Auscultation: lungs clear to auscultation bilaterally Cardiovascular: Rate/Rhythm: regular rate Heart Sounds: normal S1 and normal S2 Extremities: + pedal edema Musculoskeletal: Extremities: no cyanosis and no clubbing Skin: no jaundice Neurologic: Motor/Sensory: no tremor and no asterixis Psychiatric: Orientation: alert; + not oriented x 3 Results & Data Vital Signs (Past 12 Hours) Vital Signs Temp Pulse Pulse Resp BP Pulse Ox O2 Del Method 06/11/24 07:43 36.3 C L 83 18 128/71 99 Room Air 06/11/24 07:39 81 18 96 Room Air Laboratory Results Laboratory Results - last 24 hr 06/10/24 06/10/24 06/11/24 12:01 17:16 06:33 WBC 7.95 RBC 2.97 L Hgb 9.4 L Hct 29.8 L MCV 100.3 H MCH 31.6 MCHC 31.5 L RDW Std Deviation 71.9 H RDW Coeff of Nick 19.4 H Plt Count 104 L MPV 10.8 Sodium 134 L Potassium 4.8 Chloride 100 Carbon Dioxide 21 Anion Gap 13 H BUN 91 H Creatinine 4.49 H D Est Cr Clr Drug Dosing 13.6 eGFR 12.71 BUN/Creatinine Ratio 20.3 H Glucose 94 POC Glucose 114 H 218 H Calcium 8.7 12/06/24 07:28 WBC RBC Hgb Hct MCV MCH MCHC RDW Std Deviation RDW Coeff of Nick Plt Count MPV Sodium Potassium Chloride Carbon Dioxide Anion Gap BUN Creatinine Est Cr Clr Drug Dosing eGFR BUN/Creatinine Ratio Glucose POC Glucose 98 Calcium PG Care Time/CCT Total # of Minutes Spent Total Time Spent with Patient: Total time spent is greater than 50% in coordination of care (as documented) at patient's floor/unit and/or counseling patient: Coding Level of Care Code 46733 SUB INP/OBS CARE 3/50MIN Diagnoses Acute kidney injury N17.9 Anemia D64.9 Anemia type: unspecified type Cirrhosis K74.60 (2) Anemia Anemia type: unspecified type Qualified Code(s): D64.9 - Anemia, unspecified
--- NOTE | 2024-06-11 19:45 | Hospitalist Progress Note ---
Date of Service June 11, 2024 Assessment & Plan (1) Rhinovirus infection: Plan: BioFire + on 05/30 remains in droplet precautions per hospital protocol had probable bacterial superinfection/pneumonia given his imaging findings initially was on rocephin - then broadened to zosyn on 06/03/24 completed 7 day course of zosyn zosyn now stopped for cough - cont tessalon TID + albuterol BID (2) Urinary tract infection due to Enterococcus: Plan: 2nd VRE catheter-associated UTI completed 7 days of IV daptomycin -- now discontinued corresponded with [facility] today -- they are ok with discontinuation of his marvin he is only making 100-200cc of urine/day at most and the hematuria as been mild at most marvin not needed from a urological perspective OR nephrology perspective; just serves as nidus for infection thus, marvin removed today (3) Acute kidney injury: Plan: Presented with Creatinine of 2 at time of admission. Baseline Cr earlier this year <2. has required HD intermittently since admission earlier this week his BUN & Cr ajay again necessitating resumption of HD again Nephrology is advising ongoing HD -- probably 2x/week on Mondays/Fridays Family aware of HD need appreciate nephrology assistance additional historical information -- Was hospitalized for nearly a month at [facility] this past fall 2023. Started on HD during that hospitalization. Does have right sided IJ permcath in place still. Per records had hepatorenal syndrome while in [facility]. Following his month-long stay at [place] was discharged to [facility]; stayed there for about 3 weeks. At some point either during his stay at [facility] or while at [facility] HD was discontinued due to some renal recovery. (4) Acute metabolic encephalopathy: Plan: ongoing, but slowly improving --> more awake/alert, joking/laughing, participating in conversation more, eating better no lethargy like earlier in the admission HOWEVER - unfortunately he is still quite confused - this week he has thought he was in [place], [place], [place] Likely multifactorial causes -- * hepatic encephalopathy * toxic effects from seroquel & benzos (clonazepam) both of which were stopped on 05/22 * acidosis and uremia * rhinovirus infection and probable bacterial pneumonia * enterococcal UTI * hospital delirium * potentially other factors * etc MRI brain - no acute or subacute CVA; no old CVA; no ICH or mass supportive care treat individual issues (5) Urinary tract infection with hematuria: Plan: present on admission Known, underlying BPH He underwent Rezum procedure on December 05 had urethral stricture which was dilated on February 24, discharged with Marvin catheter Urologist Dr. Soto irrigated and repositioned his marvin catheter earlier this stay. Clots were evacuated. Hematuria resolved, did not require CBI At time of admission presumed to have had UTI, however urine culture from 05/15 with skin marco and urine and blood cultures from 05/18 were negative Was treated with cefepime then ceftriaxone 05/20-05/24 Developed another UTI in the last 2 weeks - 2nd to VRE s/p 7 day course of IV daptomycin Remains on flomax see #2 above re: marvin catheter (6) Anemia in chronic kidney disease (CKD): Plan: transfused 1u PRBCs 05/23 H/H have remained acceptable since then in the / (7) CHF (congestive heart failure): Plan: Chronic HFpEF has mechanical AVR but is no longer on chronic anticoagulation because of cirrhosis and problems with bleeding/coagulopathy Echo 02/29/2024 -- EF 50 to 55%, moderate dilation of RV, LA, RA, mechanical aortic valve in place, trace aortic regurgitation, severe tricuspid regurgitation, diastolic dysfunction grade 3 Metoprolol & bumex both stopped due to low BP & VINICIUS Volume overloaded state intermittently thru this stay likely combination of cirrhosis, VINICIUS, +/- diastolic CHF HD being used for volume control - s/p HD earlier this week & again today to have HD moving forward 2x/week as noted above (8) Diabetes mellitus, type 2: Plan: Most recent A1c (02/19/2024) 5.1% Has not required any therapies (9) Cirrhosis: Plan: With hepatic encephalopathy, coagulopathy INR 1.4, thrombocytopenia Cont lactulose/rifaximin Cont midodrine TID for low BP No clinical evidence of SBP (no abd pain, etc) (10) Muscle tone increased: Plan: UMN signs on exam hepatic encephalopathy has been aggressively treated MRI brain w/o pathology MRI c-spine with C5 myelomalacia - contributing?? but no severe spinal stenosis of c-spine but the C5 issue could be contributing had neuro eval this week - PSP?? if he does have PSP there is no specific treatment other than supportive care (11) Acute hepatic encephalopathy: Plan: elevated ammonia in the 70s earlier in the admission clinically improved and ammonia level now wnl cont lactulose BID cont rifaximin BID c diff negative (12) Acidosis: Plan: 2nd to acute kidney injury Rx - HD (13) History of fractured vertebra: Plan: lower c-spine and upper t-spine see discussion above (14) Hx of aortic valve replacement, mechanical: Plan: no longer on coumadin due to prior radiation proctitis, hematuria, and coagulopathy at HIGH RISK of clotting of the valve with subsequent embolic phenomenon, etc. no CVA seen on MRI Brain this weekend (15) Hx of aortic aneurysm: Plan: with h/o chronic Type A dissection s/p repair [facility] several years ago (2019) (16) Pancytopenia: Plan: presumed 2nd to cirrhosis which is due to [facility] today's cbc -- cell lines acceptable (17) Hypothyroidism: Plan: TSH 5.5 earlier this admission but no changes in synthroid at this time repeat TSH wnl (18) Hypotension: Plan: resolved cirrhosis likely to blame - cont midodrine 10mg TID secondary adrenal insufficiency also likely played a role cont hydrocortisone -- currently weaning slowly -- now on 20mg am and 10mg pm he is s/p albumin, IV fluids, PRBCs this admission all w/o sustained resolution of his hypotension (19) Adrenal insufficiency: Plan: cosyntropin stim test this admission -- did not pass did not stim to >18 baseline cortisol was low at 3 initially on dexamethasone now over to hydrocortisone wean slowly to basal dosing of 15mg and 5mg, respectively per daughter's report had steroids while in [place] critical illness etc all likely to blame for secondary adrenal insufficiency (20) Radiation proctitis: Plan: history of one of the reasons he had his coumadin d/c earlier this year in [place] intermittent BRBPR cause of radiation proctitis - prior XRT for prostate ca (21) Recurrent right pleural effusion: Plan: had thoracentesis while in [facility] 04/2024 this effusion has recurred while here cxr today - moderate in size given no O2 requirement, given pulmonary stability -- defer on intervention; risks outweigh benefits follow clinically hemodialysis may help with this slowly over time I presume the effusion is transudative from renal disease/CHF Plan updated pt's daughter Gloria (Gloria's cell - [phone]) and patient's extensively at bedside 06/10/24 topics discussed with family on 06/10/24 - ongoing HD needs, right sided pleural effusion, mental status, need for rehab (very poor [facility] candidate), marvin catheter, etc. all questions answered cont PT, OT although less confusion this week & eating better prognosis remains very poor in light of multiorgan failure rehab potential is poor spoke with Jenna Mackenzie from case management - she is looking at rehab facilities in the [facility] that could accommodate him and provide intermittent HD spoke with our palliative care team - they will reach out to family on Friday of this coming week to readdress goals of care Admission and Anticipated Discharge Date Admission Date: May 18, 2024 Subjective saw patient while he was on HD he was sleeping, but did awaken to me calling his name said "he was fine" but unable to provide any other meaningful information much like previous visits I corresponded today with urology they are ok with removing his marvin it was previously put in due to urinary retention & hematuria early this stay however, hematuria as been minimal and he is only making 100-200cc of urine/day in light of now being on hemodialysis catheter only serves as a UTI risk and thus it was removed after urology gave approval Review of Systems Review of Systems: Unobtainable due to cognitive status Physical Exam Physical Exam: gen - laying in bed, on the HD machine; awoke to name being called; coughing neck - JVD resolved mouth - thrush improved/resolving; MM still dry heart - RRR, s1 s2, no murmur; mechanical valve closure sound lungs - rales L base improved; decreased BS right base; no wheezing; no increased work of breathing --- unchanged pulmonary exam abd - distended (mild) BS+, NT, no HSM ext - pulses 2+ b/l feet, no edema b/l vascular - permcath right upper chest clean Results & Data Results & Data Vital Signs (Past 12 Hours) Vital Signs Temp Pulse Pulse Pulse Pulse Resp BP 06/11/24 19:08 36.3 C L 88 16 06/11/24 18:30 36.4 C L 82 06/11/24 18:27 81 102/60 06/11/24 18:00 81 93/58 L 06/11/24 17:30 83 102/57 L 06/11/24 17:00 81 99/60 L 06/11/24 16:30 91 H 95/52 L 06/11/24 16:00 85 96/61 L 06/11/24 15:30 84 112/68 06/11/24 15:23 81 106/59 L 06/11/24 15:17 36.5 C 84 06/11/24 14:43 37.2 C 74 17 06/11/24 12:29 BP BP Pulse Ox O2 Del Method 06/11/24 19:08 102/52 L 94 Room Air 06/11/24 18:30 104/62 06/11/24 18:27 06/11/24 18:00 06/11/24 17:30 06/11/24 17:00 06/11/24 16:30 06/11/24 16:00 06/11/24 15:30 06/11/24 15:23 06/11/24 15:17 06/11/24 14:43 147/90 H 92 Room Air 06/11/24 12:29 Nasal Cannula Laboratory Results Laboratory Results 06/11/24 06/11/24 06/11/24 06:33 07:28 11:30 WBC 7.95 RBC 2.97 L Hgb 9.4 L Hct 29.8 L MCV 100.3 H MCH 31.6 MCHC 31.5 L RDW Std Deviation 71.9 H RDW Coeff of Nick 19.4 H Plt Count 104 L MPV 10.8 Immature Gran % (Auto) Neut % (Auto) Lymph % (Auto) [place] % (Auto) Eos % (Auto) Baso % (Auto) Neut # (Auto) Lymph # (Auto) [place] # (Auto) Eos # (Auto) Baso # (Auto) Immature Gran # (Auto) PT INR Sodium 134 L Potassium 4.8 Chloride 100 Carbon Dioxide 21 Anion Gap 13 H BUN 91 H Creatinine 4.49 H D Est Cr Clr Drug Dosing 13.6 eGFR 12.71 BUN/Creatinine Ratio 20.3 H Glucose 94 POC Glucose 98 105 H Calcium 8.7 PG Care Time/CCT Total # of Minutes Spent Total Time Spent with Patient: Total time spent is greater than 50% in coordination of care (as documented) at patient's floor/unit and/or counseling patient: Coding Level of Care Code 89482 SUB INP/OBS CARE MIN Diagnoses Rhinovirus infection B34.8 Urinary tract infection due to Enterococcus N39.0; B95.2 Acute kidney injury N17.9 Acute metabolic encephalopathy G93.41 Urinary tract infection with hematuria N39.0; R31.9 Anemia in chronic kidney disease (CKD) N18.9; D63.1 CHF (congestive heart failure) I50.9 Diabetes mellitus, type 2 E11.9 Cirrhosis K74.60 Muscle tone increased M62.89 Acute hepatic encephalopathy K76.82 Acidosis E87.20 History of fractured vertebra Z87.81 Hx of aortic valve replacement, mechanical Z95.2 Hx of aortic aneurysm Z86.79 Pancytopenia D61.818 Hypothyroidism E03.9 Hypotension I95.9 Hypotension type: unspecified hypotension type Adrenal insufficiency E27.40 Radiation proctitis K62.7 Recurrent right pleural effusion J90 (18) Hypotension Hypotension type: unspecified hypotension type Qualified Code(s): I95.9 - Hypotension, unspecified
--- NOTE | 2024-06-12 01:36 | Communication Note ---
Date of Service: June 12, 2024 Notified by nursing that patient had a nose bleed (that had since stopped), as well as some blood from the penis (noting that his marvin catheter was removed earlier today). Also reportedly had some blood visible in his most recent BM. On chart review, noted that Hgb was 9.4 during the day. Vital signs stable, BP 104/62, HR 95 and 96% on room air. I added orders for morning labs including CBC and PT/ INR, as well as an order for hemoccult all stools. Resident Activity Tracking Resident Involvement: Resident Care Provided Care Provided: Adult Hospital Medicine
[2024-06-12 07:13] LABS: Eosinophils # (auto) 0.24 K/uL (0.00-0.50); Eosinophils % (auto) 4.6 %; Hematocrit (blood only) 27.2 % (42.0-52.0); Hemoglobin 8.7 g/dl (14.0-18.0); Immature Granulocytes # (auto) 0.05 K/uL (0.01-0.20); Lymphocytes % (auto) 3.9 %; Mean Platelet Volume 10.7 fL (9.4-12.4); Monocytes # (auto) 0.36 K/uL (0.11-0.59); Monocytes % (auto) 6.9 %; Neutrophils # (auto) 4.34 K/uL (1.40-6.50); Neutrophils % (auto) 83.6 %; Platelet Count 83 K/uL (130-400); RDW Coefficient of Variation 19.6 % (11.5-14.5); RDW Standard Deviation 69.6 fL (36.4-46.3); Red Blood Count 2.72 M/uL (4.70-6.10); White Blood Count 5.19 K/ul (4.8-10.8)
[2024-06-12 07:45] LABS: INR 1.5 (0.9-1.1); Prothrombin Time 15.6 Seconds (9.0-12.0)
--- NOTE | 2024-06-12 09:20 | Nephrology Progress Note ---
Date of Service June 12, 2024 Assessment & Plan (1) Acute kidney injury: Plan: * HD treatments have been reduced to 2x/week (M,F) * Dialyzed 06/11/24 for 1 L UF * This am resting comfortably flat in bed on RA. Denies uremic symptoms * Volume status is acceptable. No acute indication for HD today. Will reassess in am (2) Hepatorenal syndrome: Plan: * Remains on midodrine 10 mg TID for associated hypotension. Prognosis remains poor * 06/11/24 PT note - fatigues easily, requires assistance to get OOB, has sacral wounds. Recommends SNF at discharge * Family considering SNF placement near home in [place], [place] (3) Anemia: Plan: * Will provide LANDEN w/ HD Admission and Anticipated Discharge Date Admission Date: May 18, 2024 Subjective Mr. Jarquin was evaluated in his hospital room this morning. He is [place] but awake and oriented x3. He voiced no medical concerns Review of Systems Constitutional: no fever Eyes: no problem reported Ear, Nose, Mouth, Throat: no problem reported Respiratory: no dyspnea Cardiovascular: no chest pain Gastrointestinal: no abdominal pain, no nausea, no vomiting and no diarrhea/loose stools Physical Exam Constitutional: not in distress Eyes: PERRL, conjunctivae normal, anicteric sclerae ENMT: external ear and nose normal, oropharynx normal Neck: trachea midline, no thyromegaly Respiratory: normal respiratory effort, lungs clear to auscultation Cardiovascular: RRR, no murmur, no edema Gastrointestinal (Abdomen): normal bowel sounds, soft, nontender, no hepatosplenomegaly Musculoskeletal: Extremities: no cyanosis and no clubbing Skin: no rashes, warm and dry Neurologic: awake; not confused Results & Data Vital Signs (Past 12 Hours) Vital Signs Temp Pulse Pulse Resp BP BP Pulse Ox 06/12/24 08:00 06/12/24 07:39 36.4 C L 91 H 16 94/41 L 95 06/12/24 07:24 89 19 94 06/12/24 01:23 95 H 104/62 96 06/11/24 21:22 36.2 C L 90 16 114/61 94 O2 Del Method 06/12/24 08:00 Room Air 06/12/24 07:39 Room Air 06/12/24 07:24 Room Air 06/12/24 01:23 Room Air 06/11/24 21:22 Room Air Laboratory Results Laboratory Results - last 24 hr 06/11/24 06/11/24 06/12/24 11:30 21:19 06:45 WBC 5.19 RBC 2.72 L Hgb 8.7 L Hct 27.2 L MCV 100.0 MCH 32.0 MCHC 32.0 RDW Std Deviation 69.6 H RDW Coeff of Nick 19.6 H Plt Count 83 L MPV 10.7 Immature Gran % (Auto) 1.0 Neut % (Auto) 83.6 Lymph % (Auto) 3.9 [place] % (Auto) 6.9 Eos % (Auto) 4.6 Baso % (Auto) 0.0 Neut # (Auto) 4.34 Lymph # (Auto) 0.20 L [place] # (Auto) 0.36 Eos # (Auto) 0.24 Baso # (Auto) 0.00 Immature Gran # (Auto) 0.05 PT 15.6 H INR 1.5 H Sodium Potassium Chloride Carbon Dioxide Anion Gap BUN Creatinine Est Cr Clr Drug Dosing eGFR BUN/Creatinine Ratio Glucose POC Glucose 105 H 109 H Calcium 06/12/24 06/12/24 07:42 09:13 WBC RBC Hgb Hct MCV MCH MCHC RDW Std Deviation RDW Coeff of Nick Plt Count MPV Immature Gran % (Auto) Neut % (Auto) Lymph % (Auto) [place] % (Auto) Eos % (Auto) Baso % (Auto) Neut # (Auto) Lymph # (Auto) [place] # (Auto) Eos # (Auto) Baso # (Auto) Immature Gran # (Auto) PT INR Sodium 138 Potassium 4.2 Chloride 103 Carbon Dioxide 24 Anion Gap 11 BUN 56 H D Creatinine 3.11 H D Est Cr Clr Drug Dosing 19.6 eGFR 19.74 BUN/Creatinine Ratio 18.0 Glucose 78 POC Glucose 76 Calcium 8.3 L PG Care Time/CCT Total # of Minutes Spent Total Time Spent with Patient: Total time spent is greater than 50% in coordination of care (as documented) at patient's floor/unit and/or counseling patient: Coding Level of Care Code 21071 SUB INP/OBS CARE 3/50MIN Diagnoses Acute kidney injury N17.9 Hepatorenal syndrome K76.7 Anemia D64.9 Anemia type: unspecified type (3) Anemia Anemia type: unspecified type Qualified Code(s): D64.9 - Anemia, unspecified
[2024-06-12 10:00] LABS: Calcium 8.3 mg/dl (8.6-10.3); Creatinine Clr Calc Pharmacy 19.6 ml/min; Potassium 4.2 mmol/L (3.5-5.1)
--- NOTE | 2024-06-12 12:42 | Hospitalist Progress Note ---
Date of Service June 12, 2024 Assessment & Plan (1) Acute kidney injury: Plan: Presented with creatinine of 2 at time of admission, baseline creatinine <2 - Was hospitalized for nearly a month at [facility] in fall 2023 and was started on HD during the hospitalization. Per records, had hepatorenal syndrome while in [facility] - Has intermittently required HD this admission - Nephrology following -- HD treatments have been reduced to 2x/week (M,F) - MELD Na = 26, very poor prognosis - Continue midodrine 10 mg TID for associated hypotension with hepatorenal syndrome - Duran catheter removed 06/11 (2) Acute metabolic encephalopathy: Plan: Ongoing but improving - Likely multifactorial cause - MRI brain negative - Continue delirium precautions - Continue treating ongoing infections (3) Adrenal insufficiency: Plan: Likely secondary adrenal insufficiency - Daughter reports patient had steroids while in [place] - cosyntropin stim test this admission -- did not pass - did not stim to >18 - baseline cortisol was low at 3 - initially on dexamethasone now over to hydrocortisone - wean slowly to basal dosing of 15mg and 5mg, respectively (4) CHF (congestive heart failure): Plan: Chronic HFpEF - has mechanical AVR but is no longer on chronic anticoagulation because of cirrhosis and problems with bleeding/coagulopathy - Echo 02/29/2024 -- EF 50 to 55%, moderate dilation of RV, LA, RA, mechanical aortic valve in place, trace aortic regurgitation, severe tricuspid regurgitation, diastolic dysfunction grade 3 Metoprolol & bumex both stopped due to low BP & VINICIUS Volume overloaded state intermittently thru this stay likely combination of cirrhosis, VINICIUS, +/- diastolic CHF HD being used for volume control to have HD moving forward 2x/week as noted above Plan VTE PPx: SCDs CODE STATUS: DNR/DNI Admission and Anticipated Discharge Date Admission Date: May 18, 2024 Subjective Patient seen and evaluated at bedside while eating lunch. He is very hard of hearing, but is oriented x 3 and cooperative. He reports he had a bad respiratory infection earlier but is doing much better now. He does still have some productive cough, but states this is improving. He reports good appetite and sleeping ok at night. He denies pain anywhere. Per RN, he is incontinent of urine -- small amount and blood tinged. No additional complaints or concerns at this time. Physical Exam Physical Exam: General: No acute distress, nondiaphoretic, frail elderly male. Very hard of hearing. Skin: Scattered small bruising on arms. Permcath right upper chest wall. 2+ pitting edema to knees bilaterally. Cardiac: Regular rate and rhythm. Harsh mechanical valve sound. Pulm: Diminished breath sounds at bases R>L but otherwise clear to auscultation. No respiratory distress. 95% on room air. Abdominal: Soft, nontender, nondistended. Bowel sounds present. Neuro: A&O x3. No focal neurological deficits. Results & Data Results & Data Vital Signs (Past 12 Hours) Vital Signs Temp Pulse Pulse Resp BP BP Pulse Ox 06/12/24 08:00 06/12/24 07:39 97.5 F L 91 H 16 94/41 L 95 06/12/24 07:24 89 19 94 06/12/24 01:23 95 H 104/62 96 O2 Del Method 06/12/24 08:00 Room Air 06/12/24 07:39 Room Air 06/12/24 07:24 Room Air 06/12/24 01:23 Room Air Laboratory Results Reviewed CBC Reviewed coags Reviewed BMP PG Care Time/CCT Total # of Minutes Spent Total Time Spent with Patient: Total time spent is greater than 50% in coordination of care (as documented) at patient's floor/unit and/or counseling patient: Coding Level of Care Code 05621 SUB INP/OBS CARE 2/35MIN Diagnoses Acute kidney injury N17.9 Acute metabolic encephalopathy G93.41 Adrenal insufficiency E27.40 CHF (congestive heart failure) I50.9
--- NOTE | 2024-06-13 02:28 | Communication Note ---
Date of Service: June 13, 2024 Received message from nursing that large clots and bright red blood from the rectum. Blood pressure of 101/40, heart rate 92. Denies lightheadedness or dizziness. Stat H&H showed a hemoglobin of 8.1. Slight decrease from yesterday at 8.7. Positive stool occult blood screening on 06/12 during the day. Will add on H&H every 6 hours and signout to day team.
[2024-06-13 03:29] LABS: Hematocrit (blood only) 25.8 % (42.0-52.0); Hemoglobin 8.1 g/dl (14.0-18.0)
[2024-06-13 03:30] LABS: Hematocrit (blood only) 25.4 % (42.0-52.0); Hemoglobin 8.1 g/dl (14.0-18.0); Mean Corpuscular Hgb Conc 31.9 g/dL (32.0-36.0); Mean Corpuscular Volume 100.4 fL (80.0-100.0); Mean Platelet Volume 10.8 fL (9.4-12.4); Platelet Count 82 K/uL (130-400); RDW Coefficient of Variation 19.3 % (11.5-14.5); RDW Standard Deviation 70.7 fL (36.4-46.3); Red Blood Count 2.53 M/uL (4.70-6.10); White Blood Count 5.92 K/ul (4.8-10.8)
[2024-06-13 03:46] LABS: Albumin Level 2.8 gm/dl (3.4-5.0); BUN Creatinine Ratio 18.1 (10-20); Bilirubin,Total 0.8 mg/dl (0.2-1.0); Calcium 8.3 mg/dl (8.6-10.3); Creatinine Clr Calc Pharmacy 15.9 ml/min; Globulin 2.8 gm/dl (2.5-4.0); Potassium 4.9 mmol/L (3.5-5.1); Total Protein 5.6 gm/dl (6.0-8.3)
[2024-06-13 06:37] LABS: Hematocrit (blood only) 24.6 % (42.0-52.0); Hemoglobin 7.7 g/dl (14.0-18.0)
--- NOTE | 2024-06-13 09:16 | Nephrology Progress Note ---
Date of Service June 13, 2024 Assessment & Plan (1) Acute kidney injury: Plan: * HD treatments have been reduced to 2x/week (M,F) * Volume status and electrolyte balance are acceptable. No acute indication for HD today. Will schedule next HD for am, heparin free (2) Hepatorenal syndrome: Plan: * Remains on midodrine 10 mg TID for associated hypotension. Prognosis remains poor * 06/11/24 PT note - fatigues easily, requires assistance to get OOB, has sacral wounds. Recommends SNF at discharge * Family considering SNF placement near home in [place], [place] (3) Anemia: Plan: * H&H is trending down * Primary service is monitoring * Will repeat iron studies and administer LANDEN w/ HD * OK to transfuse 1 unit PRBC today if needed. Will have HD in am Admission and Anticipated Discharge Date Admission Date: May 18, 2024 Subjective Mr. Jarquin was evaluated in his hospital room this morning. He is [place] but awake. This morning he was oriented to self only. staff psychologist reports patient is passing small blood clots in urine and this morning suffered loose BM mixed w/ large quantity of BRB and blood clots Review of Systems Constitutional: no fever Eyes: no problem reported Ear, Nose, Mouth, Throat: no problem reported Respiratory: no dyspnea Cardiovascular: no chest pain Gastrointestinal: no abdominal pain, no nausea, no vomiting and no diarrhea/loose stools Physical Exam Constitutional: not in distress Eyes: PERRL, conjunctivae normal, anicteric sclerae ENMT: external ear and nose normal, oropharynx normal Neck: trachea midline, no thyromegaly Respiratory: normal respiratory effort, lungs clear to auscultation Cardiovascular: RRR, no murmur, no edema Gastrointestinal (Abdomen): normal bowel sounds, soft, nontender, no hepatosplenomegaly Musculoskeletal: Extremities: no cyanosis and no clubbing Skin: no rashes, warm and dry Neurologic: awake; not confused Results & Data Vital Signs (Past 12 Hours) Vital Signs Temp Pulse Pulse Resp BP BP Pulse Ox 06/13/24 07:02 68 15 98 06/13/24 07:00 36.6 C 90 16 106/53 L 97 06/13/24 05:03 86 112/63 06/13/24 02:47 92 H 100/55 L 06/13/24 02:22 92 H 101/40 L 95 06/12/24 23:29 36.5 C 96 H 18 118/64 95 06/12/24 22:19 O2 Del Method 06/13/24 07:02 Room Air 06/13/24 07:00 Room Air 06/13/24 05:03 06/13/24 02:47 06/13/24 02:22 Room Air 06/12/24 23:29 Room Air 06/12/24 22:19 Room Air Laboratory Results Laboratory Results - last 24 hr 06/12/24 06/12/24 06/12/24 09:13 11:34 12:48 WBC RBC Hgb Hct MCV MCH MCHC RDW Std Deviation RDW Coeff of Nick Plt Count MPV Sodium 138 Potassium 4.2 Chloride 103 Carbon Dioxide 24 Anion Gap 11 BUN 56 H D Creatinine 3.11 H D Est Cr Clr Drug Dosing 19.6 eGFR 19.74 BUN/Creatinine Ratio 18.0 Glucose 78 POC Glucose 124 H Calcium 8.3 L Total Bilirubin AST ALT Alkaline Phosphatase Total Protein Albumin Globulin Albumin/Globulin Ratio Stool Occult Bld Scrn Positive A 06/12/24 06/12/24 06/13/24 16:15 21:19 03:03 WBC 5.92 RBC 2.53 L Hgb 8.1 L Hct MCV MCH MCHC RDW Std Deviation RDW Coeff of Nick Plt Count MPV Sodium Potassium Chloride Carbon Dioxide Anion Gap BUN Creatinine Est Cr Clr Drug Dosing eGFR BUN/Creatinine Ratio Glucose POC Glucose 168 H 175 H Calcium Total Bilirubin AST ALT Alkaline Phosphatase Total Protein Albumin Globulin Albumin/Globulin Ratio Stool Occult Bld Scrn 06/13/24 06/13/24 06/13/24 03:03 03:03 06:20 WBC RBC Hgb 8.1 L 7.7 L Hct 25.4 L 25.8 L 24.6 L MCV 100.4 H MCH 32.0 MCHC 31.9 L RDW Std Deviation 70.7 H RDW Coeff of Nick 19.3 H Plt Count 82 L MPV 10.8 Sodium 135 L Potassium 4.9 Chloride 102 Carbon Dioxide 22 Anion Gap 11 BUN 69 H Creatinine 3.82 H D Est Cr Clr Drug Dosing 15.9 eGFR 15.43 BUN/Creatinine Ratio 18.1 Glucose 119 H POC Glucose Calcium 8.3 L Total Bilirubin 0.8 AST 59 H ALT 45 Alkaline Phosphatase 104 Total Protein 5.6 L Albumin 2.8 L Globulin 2.8 Albumin/Globulin Ratio 1.0 Stool Occult Bld Scrn 06/13/24 07:39 WBC RBC Hgb Hct MCV MCH MCHC RDW Std Deviation RDW Coeff of Nick Plt Count MPV Sodium Potassium Chloride Carbon Dioxide Anion Gap BUN Creatinine Est Cr Clr Drug Dosing eGFR BUN/Creatinine Ratio Glucose POC Glucose 117 H Calcium Total Bilirubin AST ALT Alkaline Phosphatase Total Protein Albumin Globulin Albumin/Globulin Ratio Stool Occult Bld Scrn PG Care Time/CCT Total # of Minutes Spent Total Time Spent with Patient: Total time spent is greater than 50% in coordination of care (as documented) at patient's floor/unit and/or counseling patient: Coding Level of Care Code 21045 SUB INP/OBS CARE 350MIN Diagnoses Acute kidney injury N17.9 Hepatorenal syndrome K76.7 Anemia D64.9 Anemia type: unspecified type (3) Anemia Anemia type: unspecified type Qualified Code(s): D64.9 - Anemia, unspecified
--- NOTE | 2024-06-13 10:28 | Gastrointestinal Consultation ---
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 He gets regular colonoscopies by his primary GI doctor. Unless this becomes an emergent issue I would just follow him expectantly while in the hospital. If he continues to bleed he will manifest it externally as the rectum pushes blood out quickly. Would follow H/H History of Present Illness Reason for Consultation: rectal bleeding Attending Physician: Nick Alejandra MD History of Present Illness 79 year old man known to me from encounter earlier this year for rectal bleeding. He has intermittent rectal bleeding related to radiation proctitis. This usually presents as bright red blood with clots and is managed by his primary GI. This has been going on for years and he had his last colonoscopy earlier this year or last year he thinks. There is no pain with it. He had an isolated episode last night. He has been in the hospital for the better part of a month and this is his first episode Allergies Allergy/AdvReac Type Severity Reaction Status Date / Time plasma protein fraction Allergy Severe FROZEN Verified 05/18/24 19:42 PLASMA-- DEVELOPED HIVES Home Medications Medication Instructions Recorded Confirmed Type cholecalciferol (vitamin D3) 50 50 mcg PO QPM 10/07/22 05/18/24 History mcg (2,000 unit) capsule clonazepam 0.5 mg tablet 0.5 mg PO DAILY PRN Anxiety 10/07/22 05/18/24 History hydrocortisone acetate 1 % topical 1 applic topical BID PRN Skin 10/07/22 05/18/24 History cream Irritation sertraline 100 mg tablet 100 mg PO HS 11/25/22 05/18/24 History tamsulosin 0.4 mg capsule 0.8 mg PO QPM 11/25/22 05/18/24 History cyanocobalamin (vitamin B-12) 1,000 mcg PO DAILY 08/31/23 05/18/24 History 1,000 mcg tablet (Vitamin B-12) levothyroxine 75 mcg tablet 75 mcg PO QAM 08/31/23 05/18/24 History (Synthroid) lactulose 10 gram/15 mL oral syrup 30 g PO BID 01/22/24 05/18/24 History ondansetron 4 mg disintegrating 4 mg PO Q6H PRN Nausea And Vomiting 02/28/24 05/18/24 History tablet bumetanide 1 mg tablet 1 mg PO .3X WEEK 05/15/24 05/18/24 History cefdinir 300 mg capsule 300 mg PO BID #14 caps 05/15/24 05/18/24 Rx hydroxyzine HCl 10 mg tablet 10 mg PO BID PRN Itching 05/15/24 05/18/24 History lansoprazole 30 mg capsule,delayed 30 mg PO BID 05/15/24 05/18/24 History release quetiapine 25 mg tablet 25 mg PO QAM 05/15/24 05/18/24 History quetiapine 50 mg tablet 50 mg PO HS 05/15/24 05/18/24 History metoprolol tartrate 25 mg tablet 25 mg PO BID 05/18/24 05/18/24 History rifaximin 550 mg tablet (Xifaxan) 550 mg PO BID 05/18/24 05/18/24 History Patient History Medical History Non-ST elevated myocardial infarction (non-STEMI) Acute kidney injury superimposed on CKD Gross hematuria Chronic kidney disease Hypothyroidism Hx of aortic aneurysm ascending aortic aneurysm s/p dissection 05/2019 and subsequent repair of aortic root (28mm Gelweave graft) Failure to thrive in adult admission [facility] 08/31/23-09/12/23. pt's states that he has improved slightly since d/c (he has also since had an admission to [facility] since that time per ; unknown dx) Thrombocytopenia Prostate CA XRT 2020; Rezum 12/05/22 Dementia pt had significant confusion during 09/2023 admission [facility]; states that he is 'much better' at home. she also notes increased confusion after General Anesthesia GERD (gastroesophageal reflux disease) Portal hypertension Diabetes type 2, controlled metformin d/c during [facility] admission 2/2 hypoglycemia (pt has been having GI issues and has not been eating normal diet) Cirrhosis follows with GI Anemia pt's reports ongoing rectal bleeding (GI is aware) since XRT for prostate Ca; pt takes iron supplement; recent iron infusions and procrit injections (02/12/24 and will have another on 02/19/24) Generalized weakness uses cane to ambulate Urinary tract infection recurrent; follows with urology Nausea & vomiting current sx; following with GI CHF (congestive heart failure) follows with [facility] Osteoarthritis Anxiety Hypertension meds reduced during 09/2023 [facility] admission 2/2 hypotension Suspected sleep apnea unaware History of COVID-19 x2 ; 10/2022 most recent (pt was asymptomatic); no ongoing sx Surgical History History of endoscopy capsule endoscopy History of flexible sigmoidoscopy History of colonoscopy History of cholecystectomy History of appendectomy History of prostate surgery multiple; most recent [facility] 12/05/22: MAC without issue History of aortic aneurysm repair 05/2021 in [facility] Follow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: No Beliefs That Will Affect Care: None marital status: Current Living Situation: Spouse current occupational status: retired Other Information That Helps Us Care for You: No Feels Safe at Home: Yes Safety Concerns: Feels Safe At This Time Assistive Devices: Walker and Wheelchair Review of Systems Review of Systems: difficult to obtain due to difficulty hearing Physical Exam Physical Exam: He looks well, very hard of hearing Constitutional: WD/WN, vitals as above Neck: trachea midline, no thyromegaly Respiratory: normal respiratory effort, lungs clear to auscultation Cardiovascular: RRR, no murmur, no edema Gastrointestinal (Abdomen): normal bowel sounds, soft, nontender, no hepatosplenomegaly Results & Data Vital Signs (Past 12 Hours) Vital Signs Temp Pulse Pulse Resp BP BP Pulse Ox 06/13/24 07:02 68 15 98 06/13/24 07:00 36.6 C 90 16 106/53 L 97 06/13/24 05:03 86 112/63 06/13/24 02:47 92 H 100/55 L 06/13/24 02:22 92 H 101/40 L 95 06/12/24 23:29 36.5 C 96 H 18 118/64 95 O2 Del Method 06/13/24 07:02 Room Air 06/13/24 07:00 Room Air 06/13/24 05:03 06/13/24 02:47 06/13/24 02:22 Room Air 06/12/24 23:29 Room Air Laboratory Results 06/13/24 06/13/24 06/13/24 Range/Units 07:39 06:23 06:20 WBC (4.8-10.8) K/ul RBC (4.70-6.10) M/uL Hgb 7.7 L (14.0-18.0) g/dl Hct 24.6 L (42.0-52.0) % MCV (80.0-100.0) fL MCH (25.0-34.0) pg MCHC (32.0-36.0) g/dL RDW Std Deviation (36.4-46.3) fL RDW Coeff of Nick (11.5-14.5) % Plt Count (130-400) K/uL MPV (9.4-12.4) fL Sodium (136-145) mmol/L Potassium (3.5-5.1) mmol/L Chloride (98-107) mmol/L Carbon Dioxide (21-32) mmol/L Anion Gap (3-11) BUN (6-23) mg/dl Creatinine (0.6-1.4) mg/dl Est Cr Clr Drug Dosing ml/min eGFR BUN/Creatinine Ratio (10-20) Glucose (70-99(Fasting)) mg/dl POC Glucose 117 H (70-99) mg/dl Calcium (8.6-10.3) mg/dl Iron 32 L (35-175) mcg/dl TIBC 135 L (250-450) mcg/dl Unsaturated IBC 103 L (155-355) mcg/dl Transferrin % Sat 24 (20-50) % Ferritin 389.0 H (8-388) ng/ml Total Bilirubin (0.2-1.0) mg/dl AST (13-39) U/L ALT (7-52) U/L Alkaline Phosphatase (34-104) U/L Total Protein (6.0-8.3) gm/dl Albumin (3.4-5.0) gm/dl Globulin (2.5-4.0) gm/dl Albumin/Globulin Ratio (0.9-2) Stool Occult Bld Scrn (Negative) 06/13/24 06/13/24 06/13/24 Range/Units 03:03 03:03 03:03 WBC 5.92 (4.8-10.8) K/ul RBC 2.53 L (4.70-6.10) M/uL Hgb 8.1 L 8.1 L (14.0-18.0) g/dl Hct 25.8 L 25.4 L (42.0-52.0) % MCV 100.4 H (80.0-100.0) fL MCH 32.0 (25.0-34.0) pg MCHC 31.9 L (32.0-36.0) g/dL RDW Std Deviation 70.7 H (36.4-46.3) fL RDW Coeff of Nick 19.3 H (11.5-14.5) % Plt Count 82 L (130-400) K/uL MPV 10.8 (9.4-12.4) fL Sodium 135 L (136-145) mmol/L Potassium 4.9 (3.5-5.1) mmol/L Chloride 102 (98-107) mmol/L Carbon Dioxide 22 (21-32) mmol/L Anion Gap 11 (3-11) BUN 69 H (6-23) mg/dl Creatinine 3.82 H D (0.6-1.4) mg/dl Est Cr Clr Drug Dosing 15.9 ml/min eGFR 15.43 BUN/Creatinine Ratio 18.1 (10-20) Glucose 119 H (70-99(Fasting)) mg/dl POC Glucose (70-99) mg/dl Calcium 8.3 L (8.6-10.3) mg/dl Iron (35-175) mcg/dl TIBC (250-450) mcg/dl Unsaturated IBC (155-355) mcg/dl Transferrin % Sat (20-50) % Ferritin (8-388) ng/ml Total Bilirubin 0.8 (0.2-1.0) mg/dl AST 59 H (13-39) U/L ALT 45 (7-52) U/L Alkaline Phosphatase 104 (34-104) U/L Total Protein 5.6 L (6.0-8.3) gm/dl Albumin 2.8 L (3.4-5.0) gm/dl Globulin 2.8 (2.5-4.0) gm/dl Albumin/Globulin Ratio 1.0 (0.9-2) Stool Occult Bld Scrn (Negative) 06/12/24 06/12/24 06/12/24 Range/Units 21:19 16:15 12:48 WBC (4.8-10.8) K/ul RBC (4.70-6.10) M/uL Hgb (14.0-18.0) g/dl Hct (42.0-52.0) % MCV (80.0-100.0) fL MCH (25.0-34.0) pg MCHC (32.0-36.0) g/dL RDW Std Deviation (36.4-46.3) fL RDW Coeff of Nick (11.5-14.5) % Plt Count (130-400) K/uL MPV (9.4-12.4) fL Sodium (136-145) mmol/L Potassium (3.5-5.1) mmol/L Chloride (98-107) mmol/L Carbon Dioxide (21-32) mmol/L Anion Gap (3-11) BUN (6-23) mg/dl Creatinine (0.6-1.4) mg/dl Est Cr Clr Drug Dosing ml/min eGFR BUN/Creatinine Ratio (10-20) Glucose (70-99(Fasting)) mg/dl POC Glucose 175 H 168 H (70-99) mg/dl Calcium (8.6-10.3) mg/dl Iron (35-175) mcg/dl TIBC (250-450) mcg/dl Unsaturated IBC (155-355) mcg/dl Transferrin % Sat (20-50) % Ferritin (8-388) ng/ml Total Bilirubin (0.2-1.0) mg/dl AST (13-39) U/L ALT (7-52) U/L Alkaline Phosphatase (34-104) U/L Total Protein (6.0-8.3) gm/dl Albumin (3.4-5.0) gm/dl Globulin (2.5-4.0) gm/dl Albumin/Globulin Ratio (0.9-2) Stool Occult Bld Scrn Positive A (Negative) 06/12/24 Range/Units 11:34 WBC (4.8-10.8) K/ul RBC (4.70-6.10) M/uL Hgb (14.0-18.0) g/dl Hct (42.0-52.0) % MCV (80.0-100.0) fL MCH (25.0-34.0) pg MCHC (32.0-36.0) g/dL RDW Std Deviation (36.4-46.3) fL RDW Coeff of Nick (11.5-14.5) % Plt Count (130-400) K/uL MPV (9.4-12.4) fL Sodium (136-145) mmol/L Potassium (3.5-5.1) mmol/L Chloride (98-107) mmol/L Carbon Dioxide (21-32) mmol/L Anion Gap (3-11) BUN (6-23) mg/dl Creatinine (0.6-1.4) mg/dl Est Cr Clr Drug Dosing ml/min eGFR BUN/Creatinine Ratio (10-20) Glucose (70-99(Fasting)) mg/dl POC Glucose 124 H (70-99) mg/dl Calcium (8.6-10.3) mg/dl Iron (35-175) mcg/dl TIBC (250-450) mcg/dl Unsaturated IBC (155-355) mcg/dl Transferrin % Sat (20-50) % Ferritin (8-388) ng/ml Total Bilirubin (0.2-1.0) mg/dl AST (13-39) U/L ALT (7-52) U/L Alkaline Phosphatase (34-104) U/L Total Protein (6.0-8.3) gm/dl Albumin (3.4-5.0) gm/dl Globulin (2.5-4.0) gm/dl Albumin/Globulin Ratio (0.9-2) Stool Occult Bld Scrn (Negative)
--- NOTE | 2024-06-13 12:04 | Hospitalist Progress Note ---
Date of Service June 13, 2024 Assessment & Plan (1) Acute kidney injury: Plan: Presented with creatinine of 2 at time of admission, baseline creatinine <2 - Was hospitalized for nearly a month at [facility] in fall 2023 and was started on HD during the hospitalization. 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 - Daughter reports patient had steroids while in [place] - cosyntropin stim test this admission -- did not pass - did not stim to >18 - baseline cortisol was low at 3 - initially on dexamethasone now over to hydrocortisone - wean slowly to basal dosing of 15mg and 5mg, respectively (4) CHF (congestive heart failure): Plan: Chronic HFpEF - has mechanical AVR but is no longer on chronic anticoagulation because of cirrhosis and problems with bleeding/coagulopathy - Echo 02/29/2024 -- EF 50 to 55%, moderate dilation of RV, LA, RA, mechanical aortic valve in place, trace aortic regurgitation, severe tricuspid regurgitation, diastolic dysfunction grade 3 Metoprolol & bumex both stopped due to low BP & VINICIUS Volume overloaded state intermittently thru this stay likely combination of cirrhosis, VINICIUS, +/- diastolic CHF HD being used for volume control to have HD moving forward 2x/week as noted above (5) Radiation proctitis: Plan: Prior radiation for prostate cancer resulted in radiation proctitis - Intermittent BRBPR - Episode of hematochezia with large clots, followed by episode of loose stools with bright red and dark red blood noted - Minor drop in hgb, but remains stable - GI consulted -- known radiation proctitis which will cause intermittent bleeding. Gets regular colonoscopies by his primary GI doctor. If he continues to bleed, he will manifest it externally as the rectum pushes blood out quickly - Continue to monitor H&H with AM labs Plan Consulted GI VTE PPx: SCDs CODE STATUS: DNR/DNI Admission and Anticipated Discharge Date Admission Date: May 18, 2024 Subjective Patient seen and evaluated at bedside while eating lunch. He reports feeling ok but noting "I could be better." He reports low energy. He had an episode of BRBPR with large clots overnight. RN today reports loose BM this morning with bright red and darker red blood visible in stool; no clots noted with this BM. We discussed the evaluation by GI. He denies abdominal pain, rectal pain, nausea, chest pain, or shortness of breath. No additional complaints or concerns at this time. Physical Exam Physical Exam: General: No acute distress, nondiaphoretic, frail elderly male. Very hard of hearing. Skin: Scattered small bruising on arms. Permcath right upper chest wall. 2+ pitting edema to knees bilaterally. Cardiac: Regular rate and rhythm. Harsh mechanical valve sound. Pulm: Diminished breath sounds at bases R>L but otherwise clear to auscultation. No respiratory distress. 98% on room air. Abdominal: Soft, nontender, nondistended. Bowel sounds present. Neuro: A&O x3. No focal neurological deficits. Results & Data Results & Data Vital Signs (Past 12 Hours) Vital Signs Temp Pulse Pulse Resp BP BP Pulse Ox 06/13/24 09:29 06/13/24 07:02 68 15 98 06/13/24 07:00 97.9 F 90 16 106/53 L 97 06/13/24 05:03 86 112/63 06/13/24 02:47 92 H 100/55 L 06/13/24 02:22 92 H 101/40 L 95 O2 Del Method 06/13/24 09:29 Room Air 06/13/24 07:02 Room Air 06/13/24 07:00 Room Air 06/13/24 05:03 06/13/24 02:47 06/13/24 02:22 Room Air Laboratory Results Reviewed CBC Reviewed BMP PG Care Time/CCT Total # of Minutes Spent Total Time Spent with Patient: Total time spent is greater than 50% in coordination of care (as documented) at patient's floor/unit and/or counseling patient: Coding Level of Care Code 82093 SUB INP/OBS CARE 3/50MIN Diagnoses Acute kidney injury N17.9 Acute metabolic encephalopathy G93.41 Adrenal insufficiency E27.40 CHF (congestive heart failure) I50.9 Radiation proctitis K62.7
[2024-06-13 16:32] LABS: Hematocrit (blood only) 25.7 % (42.0-52.0); Hemoglobin 8.1 g/dl (14.0-18.0)
[2024-06-14 06:21] LABS: Hemoglobin 6.6 g/dl (14.0-18.0); Mean Corpuscular Hemoglobin 31.6 pg (25.0-34.0); Mean Corpuscular Hgb Conc 31.4 g/dL (32.0-36.0); Mean Corpuscular Volume 100.5 fL (80.0-100.0); Mean Platelet Volume 10.5 fL (9.4-12.4); Platelet Count 79 K/uL (130-400); RDW Coefficient of Variation 19.1 % (11.5-14.5); RDW Standard Deviation 70.3 fL (36.4-46.3); Red Blood Count 2.09 M/uL (4.70-6.10); White Blood Count 5.88 K/ul (4.8-10.8)
[2024-06-14 06:36] LABS: BUN Creatinine Ratio 19.3 (10-20); Creatinine Clr Calc Pharmacy 13.4 ml/min
[2024-06-14] MEDS ORDERED: SODIUM CHLORIDE 0.9% 50 ML IV PRN ×3 (08:15→14:15)
[2024-06-14] MEDS ORDERED: SODIUM CHLORIDE 0.9% 100 ML IV PRN ×3 (08:15→14:15)
--- NOTE | 2024-06-14 08:20 | Hospitalist Progress Note ---
Date of Service June 14, 2024 Assessment & Plan (1) Acute kidney injury: Plan: Presented with creatinine of 2 at time of admission, baseline creatinine <2 - Was hospitalized for nearly a month at [facility] in fall 2023 and was started on HD during the hospitalization. Per records, had hepatorenal syndrome while in [facility] - Has intermittently required HD this admission - Nephrology following -- HD treatments have been reduced to 2x/week (M,F) - MELD Na = 26, very poor prognosis - Continue midodrine 10 mg TID for associated hypotension with hepatorenal syndrome - Duran catheter removed 06/11 (2) CHF (congestive heart failure): Plan: Chronic HFpEF - has mechanical AVR but is no longer on chronic anticoagulation because of cirrhosis and problems with bleeding/coagulopathy - Echo 02/29/2024 -- EF 50 to 55%, moderate dilation of RV, LA, RA, mechanical aortic valve in place, trace aortic regurgitation, severe tricuspid regurgitation, diastolic dysfunction grade 3 Metoprolol & bumex both stopped due to low BP & VINICIUS Volume overloaded state intermittently thru this stay likely combination of cirrhosis, VINICIUS, +/- diastolic CHF HD being used for volume control to have HD moving forward 2x/week as noted above (3) Radiation proctitis: Plan: Prior radiation for prostate cancer 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 Gets regular colonoscopies by his primary GI doctor. If he continues to bleed, he will manifest it externally as the rectum pushes blood out quickly - Hgb=6.6 -- received 2 units pRBC 06/14. 1 unit pRBC on hold - Vit K ordered given elevated INR - Closely monitor CBC. 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 - Daughter reports patient had steroids while in [place] - cosyntropin stim test this admission -- did not pass - did not stim to >18 - baseline cortisol was low at 3 - initially on dexamethasone now over to hydrocortisone - wean slowly to basal dosing of 15mg and 5mg, respectively (5) Acute metabolic encephalopathy: Plan: Ongoing but improving - Likely multifactorial cause - MRI brain negative - Continue delirium precautions - Continue treating ongoing infections Plan Updated daughter at bedside Ordered 2 unit pRBC Ordered vit K VTE PPx: SCDs CODE STATUS: DNR/DNI Admission and Anticipated Discharge Date Admission Date: May 18, 2024 Subjective Patient seen and evaluated at bedside with his daughter present. He continues to have excessive bleeding per rectum. His hgb dropped this AM requiring 1 unit pRBC with dialysis and 1 unit after dialysis. Denies lightheadedness, dizziness, blurry vision, dyspnea, palpitations. He continues to have productive cough but denies difficulty breathing or SOB. Physical Exam Physical Exam: General: No acute distress, nondiaphoretic, frail elderly male. Very hard of hearing. Skin: Scattered small bruising on arms. Permcath right upper chest wall. 2+ pitting edema to knees bilaterally. Cardiac: Regular rate and rhythm. Harsh mechanical valve sound. Pulm: Diminished breath sounds at bases R>L but otherwise clear to auscultation. No respiratory distress. 97% on room air. Abdominal: Soft, nontender, nondistended. Bowel sounds present. Neuro: A&O x3. No focal neurological deficits. Results & Data Results & Data Vital Signs (Past 12 Hours) Vital Signs Temp Pulse Pulse Resp BP BP Pulse Ox 06/14/24 07:37 97.5 F L 82 18 99/61 L 96 06/14/24 07:21 06/14/24 05:57 97.7 F 79 81 18 06/13/24 21:11 97.9 F 87 18 121/66 96 O2 Del Method 06/14/24 07:37 Room Air 06/14/24 07:21 Room Air 06/14/24 05:57 Room Air 06/13/24 21:11 Room Air Laboratory Results Reviewed CBC Reviewed BMP PG Care Time/CCT Total # of Minutes Spent Total Time Spent with Patient: Total time spent is greater than 50% in coordination of care (as documented) at patient's floor/unit and/or counseling patient: Coding Level of Care Code 20893 SUB INP/OBS CARE 3/50MIN Diagnoses Acute kidney injury N17.9 CHF (congestive heart failure) I50.9 Radiation proctitis K62.7 Adrenal insufficiency E27.40 Acute metabolic encephalopathy G93.41
--- NOTE | 2024-06-14 08:50 | Nephrology Progress Note ---
Date of Service June 14, 2024 Assessment & Plan (1) Acute kidney injury: Plan: * HD treatments have been reduced to 2x/week (M,F) * Heparin free HD today. Limit UF to 1L due to hypotension. Primary service has arranged for one unit PRBC to be transfused during treatment (2) Hepatorenal syndrome: Plan: * Remains on midodrine 10 mg TID for associated hypotension. Prognosis remains poor * 06/11/24 PT note - fatigues easily, requires assistance to get OOB, has sacral wounds. Recommends SNF at discharge * Family considering SNF placement near home in [place], [place] (3) Anemia: Plan: * Hgb 6.6 this am * Patient to receive one unit PRBC during HD today Admission and Anticipated Discharge Date Admission Date: May 18, 2024 Subjective Mr. Jarquin was evaluated in his hospital room this morning. He was alert and oriented to self. He denied further GI blood loss but Hgb is down to 6.6 this am. He voiced no medical concerns Review of Systems Constitutional: no fever Eyes: no problem reported Ear, Nose, Mouth, Throat: no problem reported Respiratory: no dyspnea Cardiovascular: no chest pain Gastrointestinal: no abdominal pain, no nausea, no vomiting and no diarrhea/loose stools Physical Exam Constitutional: not in distress Eyes: PERRL, conjunctivae normal, anicteric sclerae ENMT: external ear and nose normal, oropharynx normal Neck: trachea midline, no thyromegaly Respiratory: normal respiratory effort, lungs clear to auscultation Cardiovascular: RRR, no murmur, no edema Gastrointestinal (Abdomen): normal bowel sounds, soft, nontender, no hepatosplenomegaly Musculoskeletal: Extremities: no cyanosis and no clubbing Skin: no rashes, warm and dry Neurologic: awake; not confused Results & Data Vital Signs (Past 12 Hours) Vital Signs Temp Pulse Pulse Resp BP BP Pulse Ox 06/14/24 07:37 36.4 C L 82 18 99/61 L 96 06/14/24 07:21 06/14/24 05:57 36.5 C 79 81 18 06/13/24 21:11 36.6 C 87 18 121/66 96 O2 Del Method 06/14/24 07:37 Room Air 06/14/24 07:21 Room Air 06/14/24 05:57 Room Air 06/13/24 21:11 Room Air Laboratory Results Laboratory Results - last 24 hr 06/13/24 06/13/24 06/13/24 06:23 11:16 16:11 WBC RBC Hgb 8.1 L Hct 25.7 L MCV MCH MCHC RDW Std Deviation RDW Coeff of Nick Plt Count MPV Sodium Potassium Chloride Carbon Dioxide Anion Gap BUN Creatinine Est Cr Clr Drug Dosing eGFR BUN/Creatinine Ratio Glucose POC Glucose 103 H Calcium Iron 32 L TIBC 135 L Unsaturated IBC 103 L Transferrin % Sat 24 Ferritin 389.0 H 06/13/24 06/13/24 06/14/24 16:25 20:47 05:35 WBC 5.88 RBC 2.09 L Hgb 6.6 L* Hct 21.0 L MCV 100.5 H MCH 31.6 MCHC 31.4 L RDW Std Deviation 70.3 H RDW Coeff of Nick 19.1 H Plt Count 79 L MPV 10.5 Sodium 136 Potassium 5.0 Chloride 103 Carbon Dioxide 22 Anion Gap 11 BUN 88 H Creatinine 4.56 H* D Est Cr Clr Drug Dosing 13.4 eGFR 12.47 BUN/Creatinine Ratio 19.3 Glucose 100 H POC Glucose 140 H 130 H Calcium 8.0 L Iron TIBC Unsaturated IBC Transferrin % Sat Ferritin 06/14/24 07:38 WBC RBC Hgb Hct MCV MCH MCHC RDW Std Deviation RDW Coeff of Nick Plt Count MPV Sodium Potassium Chloride Carbon Dioxide Anion Gap BUN Creatinine Est Cr Clr Drug Dosing eGFR BUN/Creatinine Ratio Glucose POC Glucose 88 Calcium Iron TIBC Unsaturated IBC Transferrin % Sat Ferritin PG Care Time/CCT Total # of Minutes Spent Total Time Spent with Patient: Total time spent is greater than 50% in coordination of care (as documented) at patient's floor/unit and/or counseling patient: Coding Level of Care Code 25854 SUB INP/OBS CARE 3/50MIN Diagnoses Acute kidney injury N17.9 Hepatorenal syndrome K76.7 Anemia D64.9 Anemia type: unspecified type (3) Anemia Anemia type: unspecified type Qualified Code(s): D64.9 - Anemia, unspecified
--- NOTE | 2024-06-14 11:17 | Gastroenterology Progress Note ---
Date of Service June 14, 2024 Assessment & Plan (1) Radiation proctitis: Plan: Bleeding by description still rectal in nature with blood on its own. Unfortunately there isn't a lot we can do with radiation proctitis unless it is a small amount. Will follow. Will discuss colonoscopy if problems worsen and all (and patient) feel he can go through with prep and procedure but for now will hold off. Admission and Anticipated Discharge Date Admission Date: May 18, 2024 Subjective Patient off the floor. Nurse reports bleeding continues with blood coming out on its own. Hemoglobin has dropped some but he has a lot of medical issues. Results & Data Vital Signs (Past 12 Hours) Vital Signs Temp Pulse Pulse Pulse Pulse Resp BP 06/14/24 10:54 36.4 C L 79 18 85/58 L 06/14/24 10:39 36.5 C 84 18 95/41 L 06/14/24 10:30 60 96/47 L 06/14/24 10:20 36.5 C 60 18 88/56 L 06/14/24 10:00 57 L 93/75 L 06/14/24 09:30 86 93/55 L 06/14/24 09:21 87 96/48 L 06/14/24 09:11 36.4 C L 87 06/14/24 07:37 36.4 C L 82 18 06/14/24 07:21 06/14/24 05:57 36.5 C 79 81 18 BP Pulse Ox O2 Del Method O2 Flow Rate 06/14/24 10:54 97 0 06/14/24 10:39 97 0 06/14/24 10:30 06/14/24 10:20 96 0 06/14/24 10:00 06/14/24 09:30 06/14/24 09:21 06/14/24 09:11 06/14/24 07:37 99/61 L 96 Room Air 06/14/24 07:21 Room Air 06/14/24 05:57 Room Air
[2024-06-14] MEDS: EPOETIN ALFA 10,000 UNITS/ML VIAL IV ONE (11:21)
[2024-06-14] MEDS: PHYTONADIONE 5 MG in DEXTROSE 5% 50 ML IV ONE (12:54)
[2024-06-14 13:07] LABS: Hematocrit (blood only) 21.9 % (42.0-52.0); Hemoglobin 7.1 g/dl (14.0-18.0); Mean Corpuscular Hgb Conc 32.4 g/dL (32.0-36.0); Mean Corpuscular Volume 95.6 fL (80.0-100.0); Mean Platelet Volume 10.1 fL (9.4-12.4); Platelet Count 74 K/uL (130-400); RDW Coefficient of Variation 20.5 % (11.5-14.5); RDW Standard Deviation 70.8 fL (36.4-46.3); Red Blood Count 2.29 M/uL (4.70-6.10); White Blood Count 5.66 K/ul (4.8-10.8)
[2024-06-14 19:58] LABS: Hemoglobin 8.1 g/dl (14.0-18.0)
[2024-06-15] MEDS: HYDROmorphone INJ 0.5 MG/0.5 ML SYR IV STA (04:08)
--- NOTE | 2024-06-15 08:57 | Nephrology Progress Note ---
Date of Service June 15, 2024 Assessment & Plan (1) Acute kidney injury: Plan: * HD treatments have been reduced to 2x/week (M,F) * No acute indication for HD today. Will reassess in am (2) Hepatorenal syndrome: Plan: * Remains on midodrine 10 mg TID for associated hypotension. Prognosis remains poor * 06/11/24 PT note - fatigues easily, requires assistance to get OOB, has sacral wounds. Recommends SNF at discharge * Family considering SNF placement near home in [place], [place] (3) Anemia: Plan: * Transfused 2 units PRBC yesterday. Hgb improved to 8.5 this am Admission and Anticipated Discharge Date Admission Date: May 18, 2024 Subjective Mr. Jarquin was evaluated in his hospital room this morning. He was alert and oriented to self. He reports intermittent bloody stool. He denies abdominal pain and voiced no new medical concerns Review of Systems Constitutional: no fever Eyes: no problem reported Ear, Nose, Mouth, Throat: no problem reported Respiratory: no dyspnea Cardiovascular: no chest pain Gastrointestinal: no abdominal pain, no nausea, no vomiting and no diarrhea/loose stools Physical Exam 2 Constitutional: not in distress Eyes: PERRL, conjunctivae normal, anicteric sclerae ENMT: external ear and nose normal, oropharynx normal Neck: trachea midline, no thyromegaly Respiratory: normal respiratory effort, lungs clear to auscultation Cardiovascular: RRR, no murmur, no edema Gastrointestinal (Abdomen): normal bowel sounds, soft, nontender, no hepatosplenomegaly Musculoskeletal: Extremities: no cyanosis and no clubbing Skin: no rashes, warm and dry Neurologic: awake; not confused Results & Data Vital Signs (Past 12 Hours) Vital Signs Temp Pulse Resp BP Pulse Ox O2 Del Method 06/15/24 07:15 36.4 C L 81 18 108/58 L 96 Room Air 06/14/24 21:00 Room Air Laboratory Results Laboratory Results - last 24 hr 06/14/24 06/14/24 06/14/24 09:15 12:45 19:28 WBC 5.66 RBC 2.29 L Hgb 7.1 L 8.1 L Hct 21.9 L 25.0 L MCV 95.6 MCH 31.0 MCHC 32.4 RDW Std Deviation 70.8 H RDW Coeff of Nick 20.5 H Plt Count 74 L MPV 10.1 Blood Type O Negative Antibody Screen NEGATIVE Crossmatch See Detail Laboratory Results - last 24 hr 06/14/24 06/14/24 06/14/24 09:15 12:45 19:28 WBC 5.66 RBC 2.29 L Hgb 7.1 L 8.1 L Hct 21.9 L 25.0 L MCV 95.6 MCH 31.0 MCHC 32.4 RDW Std Deviation 70.8 H RDW Coeff of Nick 20.5 H Plt Count 74 L MPV 10.1 Sodium Potassium Chloride Carbon Dioxide Anion Gap BUN Creatinine Est Cr Clr Drug Dosing eGFR BUN/Creatinine Ratio Glucose Calcium Blood Type O Negative Antibody Screen NEGATIVE Crossmatch See Detail 06/15/24 08:45 WBC 6.35 RBC 2.77 L Hgb 8.5 L Hct 26.3 L MCV 94.9 MCH 30.7 MCHC 32.3 RDW Std Deviation 72.5 H RDW Coeff of Nick 21.2 H Plt Count 88 L MPV 10.4 Sodium 135 L Potassium 4.5 Chloride 101 Carbon Dioxide 25 Anion Gap 9 BUN 66 H D Creatinine 3.68 H D Est Cr Clr Drug Dosing 16.5 eGFR 16.13 BUN/Creatinine Ratio 17.9 Glucose 80 Calcium 8.2 L Blood Type Antibody Screen Crossmatch PG Care Time/CCT Total # of Minutes Spent Total Time Spent with Patient: Total time spent is greater than 50% in coordination of care (as documented) at patient's floor/unit and/or counseling patient: Coding Level of Care Code 60642 SUB INP/OBS CARE 3/50MIN Diagnoses Acute kidney injury N17.9 Hepatorenal syndrome K76.7 Anemia D64.9 Anemia type: unspecified type (3) Anemia Anemia type: unspecified type Qualified Code(s): D64.9 - Anemia, unspecified
--- NOTE | 2024-06-15 09:07 | Hospitalist Progress Note ---
Date of Service June 15, 2024 Assessment & Plan (1) Acute kidney injury: Plan: Presented with creatinine of 2 at time of admission, baseline creatinine <2 - Was hospitalized for nearly a month at [facility] in fall 2023 and was started on HD during the hospitalization. Per records, had hepatorenal syndrome while in [facility] - Has intermittently required HD this admission - Nephrology following -- HD treatments have been reduced to 2x/week (M,F) - MELD Na = 26, very poor prognosis - Continue midodrine 10 mg TID for associated hypotension with hepatorenal syndrome - Duran catheter removed 06/11 06/15 Remains on hydrocortisone 20mg/10mg, wean to 15mg/5mg as able. Remains on protonix PO BID for GI proph. s/p 2u PRBC 06/14, hgb 8.5 and will monitor ADDED anusol HC suppositories for today Midodrine continued 10mg TID for hypotension/hepatorenal syndrome - no lightheaded/dizziness w/ standing but BP still borderline 93/56 MELD SCORE 24 BUN/Cr 66/3.68 - no HD today per nephrology Monitor renal function, appreciate recs from nephrology (2) CHF (congestive heart failure): Plan: Chronic HFpEF, s/p AVR but not on AC 2nd to cirrhosis/coagulopathy Echo 02/29/2024 -- EF 50 to 55%, moderate dilation of RV, LA, RA, mechanical aortic valve in place, trace aortic regurgitation, severe tricuspid regurgitation, diastolic dysfunction grade 3 Metoprolol/bumex on HOLD 2nd to VINICIUS/hypotension Volume overloaded 2nd combination cirrhosis/VINICIUS/diastolic HF HD to volume management as above, no HD for today but planning for 2x/wk at co (3) Radiation proctitis: Plan: Prior radiation for prostate cancer 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 Gets regular colonoscopies by his primary GI doctor. 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 Daughter reports patient had steroids while in [place] cosyntropin stim test this admission -- did not pass did not stim to >18 baseline cortisol was low at 3 initially on dexamethasone now over to hydrocortisone wean slowly to basal dosing of 15mg and 5mg, respectively --> POSSIBLY NEXT 48 hrs pending repeat BPs/exam (5) Acute metabolic encephalopathy: Plan: Ongoing but improving - Likely multifactorial cause: toxic effects from seroquel and benzos (both stopped on 05/12), acidosis and uremia, rhinovirus infection and probable bacterial pneumonia; - MRI brain negative - Continue delirium precautions - Continue treating ongoing infections Check ammonia w/ AM labs given held lactulose w/ loose stools (monitor for cdiff) Plan Updated daughter at bedside prior, no one in room currently. Planning for rehab near home per last note Dispo: continued inpatient stay, HD per nephorlogy and monitoring blood counts. Trial Anusol HC for proctitis/bleeding to see if effective SCDs ordered Admission and Anticipated Discharge Date Admission Date: May 18, 2024 Supervising Physician Co-Signing Physician Notes The patient was not seen by me. The chart was reviewed. Case discussed with ROBERT Mccallum. Agree with assessment and plan Subjective Eval this morning, resting in bed. Having some blood in stool , no significant clots. Discussed anusol suppository to see if helpful for discomfort, he will think about it. It has been ordered and discussed he can decline if wanting. Less cough, not bringing up much. On room air, no SOB reported and on room air. No lightheaded/dizziness with standing and remains on midodrine, on oral steroids and possible reduction tomorrow if BP stable and not having significant symptoms from such. Planning for rehab at co. Questions/concerns addressed at this time. Physical Exam 2 Physical Exam: General: chronically ill appearing male sitting up in bed, hard of hearing but NAD, fatigued appearing HEENT: head atraumatic, normocephalic, mmm, trachea midline, HARD OF HEARING Resp; diminished in the bases, no overt wheezing, occasional cough but no rales, on room air CV: RRR, +systolic murmur c/w valve, 1-2+ edema to thighs/sacrum but no overt pitting pedal edema GI: +BS, distended, no overt tenderness MSK/Neuro: nonfocal but generalized weakness, follows commands as able Psych: alert to person/place/event, cooperative Results & Data Results & Data Vital Signs (Past 12 Hours) Vital Signs Temp Pulse Resp BP Pulse Ox O2 Del Method 06/15/24 07:15 36.4 C L 81 18 108/58 L 96 Room Air Laboratory Results 06/15/24 08:45 06/15/24 08:45 LFTs: TB 0.8, AST 46, ALT 38, ALP 92 INR: 1.3 PG Care Time/CCT Total # of Minutes Spent Total Time Spent with Patient: Total time spent is greater than 50% in coordination of care (as documented) at patient's floor/unit and/or counseling patient: Coding Level of Care Code 90319 SUB INP/OBS CARE 3/50MIN Diagnoses Acute kidney injury N17.9 CHF (congestive heart failure) I50.9 Radiation proctitis K62.7 Adrenal insufficiency E27.40 Acute metabolic encephalopathy G93.41
[2024-06-15 09:29] LABS: Hematocrit (blood only) 26.3 % (42.0-52.0); Hemoglobin 8.5 g/dl (14.0-18.0); Mean Corpuscular Hemoglobin 30.7 pg (25.0-34.0); Mean Corpuscular Hgb Conc 32.3 g/dL (32.0-36.0); Mean Corpuscular Volume 94.9 fL (80.0-100.0); Mean Platelet Volume 10.4 fL (9.4-12.4); Platelet Count 88 K/uL (130-400); RDW Coefficient of Variation 21.2 % (11.5-14.5); RDW Standard Deviation 72.5 fL (36.4-46.3); Red Blood Count 2.77 M/uL (4.70-6.10); White Blood Count 6.35 K/ul (4.8-10.8)
[2024-06-15 09:49] LABS: BUN Creatinine Ratio 17.9 (10-20); Calcium 8.2 mg/dl (8.6-10.3); Creatinine Clr Calc Pharmacy 16.5 ml/min; Potassium 4.5 mmol/L (3.5-5.1)
[2024-06-15 11:06] LABS: INR 1.3 (0.9-1.1); Prothrombin Time 14.2 Seconds (9.0-12.0)
[2024-06-15 11:10] LABS: Albumin Level 2.6 gm/dl (3.4-5.0); Bilirubin Direct 0.3 mg/dl (0-0.2); Bilirubin,Total 0.8 mg/dl (0.2-1.0); Total Protein 5.1 gm/dl (6.0-8.3)
--- NOTE | 2024-06-15 15:13 | Gastroenterology Progress Note ---
Date of Service June 15, 2024 Assessment & Plan (1) Radiation proctitis: Plan: Bleeding seems to be slowing. Anusol HC suppositories won't hurt, not sure how much they will help for proctitis related to radiation as it is a vascular disease. Will continue to follow Admission and Anticipated Discharge Date Admission Date: May 18, 2024 Subjective Patient reports bleeding has decreased quite a bit, family confirms. Physical Exam Physical Exam: Sitting up in chair looking comfortable Constitutional: WD/WN, vitals as above Results & Data Vital Signs (Past 12 Hours) Vital Signs Temp Pulse Resp BP Pulse Ox O2 Del Method 06/15/24 11:45 93/56 L 06/15/24 07:15 36.4 C L 81 18 108/58 L 96 Room Air
[2024-06-15] MEDS: HYDROCORTISONE ACETATE 25 MG SUPP PR SCH (17:07)
[2024-06-16 06:47] LABS: Hematocrit (blood only) 24.3 % (42.0-52.0); Hemoglobin 8.1 g/dl (14.0-18.0); Mean Corpuscular Hemoglobin 31.2 pg (25.0-34.0); Mean Corpuscular Hgb Conc 33.3 g/dL (32.0-36.0); Mean Corpuscular Volume 93.5 fL (80.0-100.0); Mean Platelet Volume 10.3 fL (9.4-12.4); Platelet Count 88 K/uL (130-400); RDW Coefficient of Variation 20.7 % (11.5-14.5); RDW Standard Deviation 69.7 fL (36.4-46.3)
[2024-06-16 07:12] LABS: Albumin Level 2.7 gm/dl (3.4-5.0); Bilirubin Direct 0.2 mg/dl (0-0.2); Bilirubin,Total 0.7 mg/dl (0.2-1.0); Calcium 8.3 mg/dl (8.6-10.3); Potassium 4.6 mmol/L (3.5-5.1)
[2024-06-16 07:19] LABS: INR 1.3 (0.9-1.1); Prothrombin Time 13.9 Seconds (9.0-12.0)
[2024-06-16 07:45] LABS: BUN Creatinine Ratio 20.7 (10-20); Creatinine Clr Calc Pharmacy 15.2 ml/min; Total Protein 5.3 gm/dl (6.0-8.3)
--- NOTE | 2024-06-16 08:28 | Hospitalist Progress Note ---
Date of Service June 16, 2024 Assessment & Plan (1) Acute kidney injury: Plan: Presented with creatinine of 2 at time of admission, baseline creatinine <2 - Was hospitalized for nearly a month at [facility] in fall 2023 and was started on HD during the hospitalization. Per records, had hepatorenal syndrome while in [facility] - Has intermittently required HD this admission - Nephrology following -- HD treatments have been reduced to 2x/week (M,F) - MELD Na = 26, very poor prognosis - Continue midodrine 10 mg TID for associated hypotension with hepatorenal syndrome - Duran catheter removed 06/11 06/16 BUN/Cr 83/4 Nephrology arranged for HD today for increasing Cr between treatments. Hgb 8.5--> 8.1 but decreased bleeding w/ bowel movements. s/p 2u PRBC on 06/14 - Additional 1u PRBC on hold if needed Midodrine 10mg TID for hypotension/hepatorenal syndrome CONTINUED- had to be provided during HD for drop in BP but stable BP 124/56 this afternoon Remains on hydrocortisone 20mg/10mg adrenal insufficiency/BP support Protonix BID for GI proph. ANusol supp as willing Mentation improved/stable following HD but some confusion likely related to elevated ammonia to 108 and HAD NOT BEEN GETTING his lactulose since 06/12 due to bowel movements. --RN to administer/will monitor level in AM. Continue rifaximin PT/OT rec SNF, planning at dc when stable/finding place that can offer HD (2) Acute metabolic encephalopathy: Plan: Ongoing but improving Likely multifactorial cause: toxic effects from seroquel and benzos (both stopped on 05/12), acidosis and uremia, rhinovirus infection and probable bacterial pneumonia; MRI brain negative Continue delirium precautions Continue treating ongoing infections GI on consult MELD SCORE 25 Anusol suppositories BID as able/willing Alert/oriented to person but increased fatigue 06/15 --> REVIEW OF LACTULOSE NOT GIVEN SINCE 06/12 --> AMMONIA ELEVATED 108, Lactulose to be provided and will continue to monitor. Montior to increase if needed Check cdiff w/ prior abx use given had held lactulose for ongoing loose stools (3) CHF (congestive heart failure): Plan: Chronic HFpEF, s/p AVR but not on AC 2nd to cirrhosis/coagulopathy Echo 02/29/2024 -- EF 50 to 55%, moderate dilation of RV, LA, RA, mechanical aortic valve in place, trace aortic regurgitation, severe tricuspid regurgitation, diastolic dysfunction grade 3 Metoprolol/bumex on HOLD 2nd to VINICIUS/hypotension and volume overloaded 2nd combination cirrhosis/VINICIUS/diastolic HF HD to volume management as above, HD planned for today w/ improvement in volume status following Planning for 2x/wk at dc (4) Radiation proctitis: Plan: Prior radiation for prostate cancer 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 Gets regular colonoscopies by his primary GI doctor. If he continues to bleed, he will manifest it externally as the rectum pushes blood out quickly Hgb 6.6 on 06/14 and given 2u PRBC w/ repeat hgb 8.5 (additional unit PRBC on hold). Prior given Vit K for INR 1.5 (currently 1.3 and will monitor) --Hgb 8.1 however decreased bleeding with stools reported. 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 Lactulose to be provided for elevated ammonia and will monitor/increase if needed PT/OT rec for rehab, CM following Admission and Anticipated Discharge Date Admission Date: May 18, 2024 Supervising Physician Co-Signing Physician Notes The patient was not seen by me. The chart was reviewed. Case discussed with ROBERT Mccallum. Agree with assessment and plan Subjective EValuated this afternoon. Underwent HD this morning. Some blood in stools but much decreased reported. No further clots. BP 120s systolically this afternoon and looking better. Discussed lactulose use and ammonia level and just got a dose/feeling like needing to move his bowels. Denies CP/SOB. Denied abdominal pain/nausea but does have abdominal distension/some cramping reported and will monitor ammonia level w/ continued lactulose. Monitoring for cdiff if needed. Ongoing search for bed placement, agreeable to rehab. Physical Exam 2 Physical Exam: General: chronically ill appearing male sitting up in bed, hard of hearing but NAD, appears IMPROVED mentation following dialysis HEENT: head atraumatic, normocephalic, mmm, trachea midline, HARD OF HEARING Resp; diminished in the bases, no overt wheezing, occasional cough but no rales, on room air CV: RRR, +systolic murmur c/w valve, 1-2+ edema to thighs/sacrum but no overt pitting pedal edema GI: +BS, distended/edema, cramping but no overt tenderness/no guarding/rebound MSK/Neuro: nonfocal but generalized weakness, follows commands as able Psych: alert to person/place, intermittent to event/time, cooperative with care Results & Data Results & Data Vital Signs (Past 12 Hours) Vital Signs Temp Pulse Resp BP BP Pulse Ox O2 Del Method 06/16/24 07:51 102/42 L 06/16/24 07:11 36.3 C L 88 16 92/42 L 94/46 L 96 Room Air 06/15/24 22:10 Room Air Laboratory Results 06/16/24 06:13 06/16/24 06:13 TB 0.7, DB 0.2 AST 45 ALT 38 ALT 103 Ammonia 108 PG Care Time/CCT Total # of Minutes Spent Total Time Spent with Patient: Total time spent is greater than 50% in coordination of care (as documented) at patient's floor/unit and/or counseling patient: Coding Level of Care Code 99303 SUB INP/OBS CARE 3/50MIN Diagnoses Acute kidney injury N17.9 Acute metabolic encephalopathy G93.41 CHF (congestive heart failure) I50.9 Radiation proctitis K62.7 Adrenal insufficiency E27.40
--- NOTE | 2024-06-16 09:02 | Nephrology Progress Note ---
Date of Service June 16, 2024 Assessment & Plan (1) Acute kidney injury: Plan: * Oligo-anuric. Creatinine continues to rise in between HD treatments. Patient w/ significant azotemia * Will provide heparin free HD today for continued urea clearance and 1 L UF * Continue to monitor BMP (2) Hepatorenal syndrome: Plan: * Remains on midodrine 10 mg TID for associated hypotension. Prognosis remains poor * 06/11/24 PT note - fatigues easily, requires assistance to get OOB, has sacral wounds. Recommends SNF at discharge * Family considering SNF placement near home in [place], [place] (3) Anemia: Plan: * Transfused 2 units PRBC 06/14/24 * Hgb 8.5-->8.1 today Admission and Anticipated Discharge Date Admission Date: May 18, 2024 Subjective Mr. Jarquin was evaluated in his hospital room this morning. He was alert but oriented to self only. He denies abdominal pain but reports continued bloody stool Review of Systems Constitutional: no fever Eyes: no problem reported Ear, Nose, Mouth, Throat: no problem reported Respiratory: no dyspnea Cardiovascular: no chest pain Gastrointestinal: no abdominal pain, no nausea, no vomiting and no diarrhea/loose stools Physical Exam Constitutional: not in distress Eyes: PERRL, conjunctivae normal, anicteric sclerae ENMT: external ear and nose normal, oropharynx normal Neck: trachea midline, no thyromegaly Respiratory: normal respiratory effort, lungs clear to auscultation Cardiovascular: RRR, no murmur, no edema Gastrointestinal (Abdomen): normal bowel sounds, soft, nontender, no hepatosplenomegaly Musculoskeletal: Extremities: no cyanosis and no clubbing Skin: no rashes, warm and dry Neurologic: awake; not confused Results & Data Vital Signs (Past 12 Hours) Vital Signs Temp Pulse Resp BP BP Pulse Ox O2 Del Method 06/16/24 07:51 102/42 L 06/16/24 07:11 36.3 C L 88 16 92/42 L 94/46 L 96 Room Air 06/15/24 22:10 Room Air Laboratory Results Laboratory Results - last 24 hr 06/15/24 06/15/24 06/16/24 08:45 09:47 06:13 WBC 6.35 5.90 RBC 2.77 L 2.60 L Hgb 8.5 L 8.1 L Hct 26.3 L 24.3 L MCV 94.9 93.5 MCH 30.7 31.2 MCHC 32.3 33.3 RDW Std Deviation 72.5 H 69.7 H RDW Coeff of Nick 21.2 H 20.7 H Plt Count 88 L 88 L MPV 10.4 10.3 PT 14.2 H 13.9 H INR 1.3 H 1.3 H Sodium 135 L 134 L Potassium 4.5 4.6 Chloride 101 101 Carbon Dioxide 25 22 Anion Gap 9 11 BUN 66 H D 83 H Creatinine 3.68 H D 4.01 H D Est Cr Clr Drug Dosing 16.5 15.2 eGFR 16.13 14.55 BUN/Creatinine Ratio 17.9 20.7 H Glucose 80 81 Calcium 8.2 L 8.3 L Total Bilirubin 0.8 0.7 Direct Bilirubin 0.3 H 0.2 AST 46 H 45 H ALT 38 38 Alkaline Phosphatase 92 103 Ammonia 108.0 H Lactate Dehydrogenase 191 Total Protein 5.1 L 5.3 L Albumin 2.6 L 2.7 L PG Care Time/CCT Total # of Minutes Spent Total Time Spent with Patient: Total time spent is greater than 50% in coordination of care (as documented) at patient's floor/unit and/or counseling patient: Coding Level of Care Code 65458 SUB INP/OBS CARE 3/50MIN Diagnoses Acute kidney injury N17.9 Hepatorenal syndrome K76.7 Anemia D64.9 Anemia type: unspecified type (3) Anemia Anemia type: unspecified type Qualified Code(s): D64.9 - Anemia, unspecified
[2024-06-16] MEDS: EPOETIN ALFA 10,000 UNITS/ML VIAL IV ONE (11:09)
--- NOTE | 2024-06-16 12:44 | Communication Note ---
Date of Service: June 16, 2024 Patient in dialysis. Nurse reports small amount of blood with BM but no clots. H/H are stable No plans for colonoscopy now.
[2024-06-17 04:44] LABS: Mean Corpuscular Hemoglobin 30.7 pg (25.0-34.0); Mean Corpuscular Volume 95.8 fL (80.0-100.0); Mean Platelet Volume 10.5 fL (9.4-12.4); Platelet Count 104 K/uL (130-400); RDW Coefficient of Variation 20.9 % (11.5-14.5); RDW Standard Deviation 70.6 fL (36.4-46.3); Red Blood Count 2.61 M/uL (4.70-6.10)
[2024-06-17 05:03] LABS: Albumin Level 2.8 gm/dl (3.4-5.0); BUN Creatinine Ratio 17.7 (10-20); Bilirubin Direct 0.2 mg/dl (0-0.2); Bilirubin,Total 0.7 mg/dl (0.2-1.0); Calcium 8.3 mg/dl (8.6-10.3); Creatinine Clr Calc Pharmacy 18.9 ml/min; Magnesium 1.8 mg/dl (1.7-2.4); Potassium 4.6 mmol/L (3.5-5.1); Total Protein 5.5 gm/dl (6.0-8.3); Uric Acid 3.8 mg/dl (2.6-7.2)
--- NOTE | 2024-06-17 08:23 | Hospitalist Progress Note ---
Date of Service June 17, 2024 Assessment & Plan (1) Acute kidney injury: Plan: Presented with creatinine of 2 at time of admission, baseline creatinine <2 Was hospitalized for nearly a month at [facility] in fall 2023 and was started on HD during the hospitalization. Per records, had hepatorenal syndrome while in [facility] Has intermittently required HD this admission Nephrology following -- HD treatments have been reduced to 2x/week (M,F) MELD Na = 25, very poor prognosis Continue midodrine 10 mg TID for associated hypotension with hepatorenal syndrome Duran catheter removed 06/11 s/p 2 u PRBC on 06/14 for hgb 6.6 (total 3u PRBC while inpatient) w/ appropriate increase to 8.5. HD on 06/16 for 150mL due to hypotension Hgb 8.0--1u PRBC to be provided for 06/17 and will keep 1u PRBC on hold. BUN/Cr 57/3.22 Per nephrology, plans for HD tomorrow Remains on midodrine 10mg TID, hydrocortisone for BP support. HTN agents stopped GI on consult/no plans for scope Continues on lactulose/rifaximin (see note prior/had not been getting) - ammonia improved to 66 Continue PPI BID. Cdiff negative Does report less bleeding w/ bowel movements-Agreeable to JADE tan to provide (Had been on in past per daughter- known variceal disease w/ cirrhosis) PT/OT rec SNF, planning at dc when stable/finding place that can offer HD (2) Acute metabolic encephalopathy: Plan: Ongoing but improving Likely multifactorial cause: toxic effects from seroquel and benzos (both stopped on 05/12), acidosis and uremia, rhinovirus infection and probable bacterial pneumonia; MRI brain negative Continue delirium precautions Continue treating ongoing infections GI on consult MELD SCORE 25 Anusol suppositories BID as able/willing Alert/oriented to person but increased fatigue 06/15 --> REVIEW OF LACTULOSE NOT GIVEN SINCE 06/12 --> AMMONIA ELEVATED 108 and IMPROVING w/ resumption Mentation stable/improved, did discuss some depression w/ ongoing hospitalization which he does endorse the "5 weeks here" w/ month prior. Supportive care PRBC transfusion/lactulose continued as above for ammonia/cirrhosis (3) CHF (congestive heart failure): Plan: Chronic HFpEF, s/p AVR but not on AC 2nd to cirrhosis/coagulopathy Echo 02/29/2024 -- EF 50 to 55%, moderate dilation of RV, LA, RA, mechanical aortic valve in place, trace aortic regurgitation, severe tricuspid regurgitation, diastolic dysfunction grade 3 Metoprolol/bumex on HOLD 2nd to VINICIUS/hypotension and volume overloaded 2nd combination cirrhosis/VINICIUS/diastolic HF HD to volume management as above, repeat HD planned for the morning and getting 1u PRBC for today w/ additional unit on hold if needed Planning for 2x/wk [place] [facility], will need coordinated w/ SNF/rehab. 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 Gets regular colonoscopies by his primary GI doctor. If he continues to bleed, he will manifest it externally as the rectum pushes blood out quickly Hgb 6.6 on 06/14 and given 2u PRBC w/ repeat hgb 8.5 (additional unit PRBC on hold). Prior given Vit K for INR 1.5 (currently 1.3 and will monitor) Hgb 8.0 however decreased bleeding with stools reported and not able to pull much fluid off day prior w/ HD due to BP Agreeable to anusol -- RN to provide. Continue PPI BID, cdiff testing negative plt count stable/improved Monitor cbc. 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 Remains on Rifaximin. Nutrition consulted/Boost supplements for low albumin Ongoing PT/OT while inpatient w/ SNF rec, CM following Updated daughter 06/16 in the evening. Can update as needed/any changes Admission and Anticipated Discharge Date Admission Date: May 18, 2024 Supervising Physician Co-Signing Physician Notes The patient was not seen by me. The chart was reviewed. Case discussed with ROBERT Mccallum. Agree with assessment and plan Subjective Eval this morning, sitting up in bed. Eating breakfast. Hearing aide batteries replaced yesterday. Improved conversation/mentation.Appears improved.. Ammonia improved. Moving bowels, less bleeding. Brown per nursing this morning, does have some anal irritation/redness. Discussed suppositories as daughter reported getting before. He remembers declining these but discussed to help w/ inflammation/is agreeable and RN to administer. Now getting protein supplements for albumin/nutrition. Does have some leg edema, discussed compression stockings. He would like to hold off for now. Will check doppler for completeness. Discussed 1u PRBC for today for hgb level. Per discussion w/ nephrology will plan for HD tomorrow. Questions/concerns addressed at this time. Physical Exam 2 Physical Exam: General: chronically ill appearing male sitting up in bed, hard of hearing but NAD (batteries changed -- MUCH better/more conversational), appears IMPROVED mentation today HEENT: head atraumatic, normocephalic, mmm, trachea midline, HARD OF HEARING (aides in place) Resp; diminished in the bases, no overt wheezing, occasional cough but no rales, on room air CV: RRR, +systolic murmur c/w valve, 1-2+ edema to thighs/sacrum, slightly increased edema RLE compared to the left but pulses present/calves without significant tenderness/redness GI: +BS, distended/edema, cramping but no overt tenderness/no guarding/rebound MSK/Neuro: nonfocal but generalized weakness, follows commands as able Psych: alert to person/place, intermittent to event/time, cooperative with care Results & Data Results & Data Vital Signs (Past 12 Hours) Vital Signs Temp Pulse Resp BP Pulse Ox O2 Del Method 06/16/24 23:25 Room Air 06/16/24 20:53 36.6 C 95 H 16 106/66 97 Room Air Laboratory Results 06/17/24 04:29 06/17/24 04:31 AST 56 ALP 112 Albumin 2.8 Cdiff negative PG Care Time/CCT Total # of Minutes Spent Total Time Spent with Patient: Total time spent is greater than 50% in coordination of care (as documented) at patient's floor/unit and/or counseling patient: Coding Level of Care Code 46192 SUB INP/OBS CARE 350MIN Diagnoses Acute kidney injury N17.9 Acute metabolic encephalopathy G93.41 CHF (congestive heart failure) I50.9 Radiation proctitis K62.7 Adrenal insufficiency E27.40
--- NOTE | 2024-06-17 08:48 | Nephrology Progress Note ---
Date of Service June 17, 2024 Assessment & Plan (1) Acute kidney injury: Plan: * Patient was dialyzed yesterday. Only 146 cc UF obtained due to hypotension * Volume status and electrolyte balance are acceptable. No acute indication for HD today * Will plan next HD for am * Continue to monitor BMP (2) Hepatorenal syndrome: Plan: * Remains on midodrine 10 mg TID for associated hypotension. Prognosis remains poor * 06/11/24 PT note - fatigues easily, requires assistance to get OOB, has sacral wounds. Recommends SNF at discharge * Family considering SNF placement near home in [place], [place] (3) Anemia: Plan: * Transfused 2 units PRBC 06/14/24 * Hgb 8.5-->8.0 today Admission and Anticipated Discharge Date Admission Date: May 18, 2024 Subjective Mr. Jarquin was evaluated in his hospital room this morning. He was alert but oriented only to self. He denied abdominal discomfort, angina or dyspnea Review of Systems Constitutional: no fever Eyes: no problem reported Ear, Nose, Mouth, Throat: no problem reported Respiratory: no dyspnea Cardiovascular: no chest pain Gastrointestinal: no abdominal pain, no nausea, no vomiting and no diarrhea/loose stools Physical Exam Constitutional: not in distress Eyes: PERRL, conjunctivae normal, anicteric sclerae ENMT: external ear and nose normal, oropharynx normal Neck: trachea midline, no thyromegaly Respiratory: normal respiratory effort, lungs clear to auscultation Cardiovascular: RRR, no murmur, no edema Gastrointestinal (Abdomen): normal bowel sounds, soft, nontender, no hepatosplenomegaly Musculoskeletal: Extremities: no cyanosis and no clubbing Skin: no rashes, warm and dry Neurologic: awake; not confused Results & Data Vital Signs (Past 12 Hours) Vital Signs Temp Pulse Resp BP Pulse Ox O2 Del Method 06/17/24 08:15 36.6 C 83 16 101/53 L 95 Room Air 06/16/24 23:25 Room Air 06/16/24 20:53 36.6 C 95 H 16 106/66 97 Room Air Laboratory Results Laboratory Results - last 24 hr 06/16/24 06/17/24 06/17/24 13:45 04:29 04:31 WBC 8.20 RBC 2.61 L Hgb 8.0 L Hct 25.0 L MCV 95.8 MCH 30.7 MCHC 32.0 RDW Std Deviation 70.6 H RDW Coeff of Nick 20.9 H Plt Count 104 L MPV 10.5 Sodium 135 L Potassium 4.6 Chloride 102 Carbon Dioxide 24 Anion Gap 9 BUN 57 H D Creatinine 3.22 H D Est Cr Clr Drug Dosing 18.9 eGFR 18.94 BUN/Creatinine Ratio 17.7 Glucose 91 Uric Acid 3.8 Calcium 8.3 L Magnesium 1.8 Total Bilirubin 0.7 Direct Bilirubin 0.2 AST 56 H ALT 45 Alkaline Phosphatase 112 H Ammonia 66.0 Total Protein 5.5 L Albumin 2.8 L Stl C. diff Tox B Gene Negative Cdiff Gene PG Care Time/CCT Total # of Minutes Spent Total Time Spent with Patient: Total time spent is greater than 50% in coordination of care (as documented) at patient's floor/unit and/or counseling patient: Coding Level of Care Code 67440 SUB INP/OBS CARE 3/50MIN Diagnoses Acute kidney injury N17.9 Hepatorenal syndrome K76.7 Anemia D64.9 Anemia type: unspecified type (3) Anemia Anemia type: unspecified type Qualified Code(s): D64.9 - Anemia, unspecified
[2024-06-17] MEDS ORDERED: SODIUM CHLORIDE 0.9% 50 ML IV PRN (09:10)
[2024-06-17] MEDS ORDERED: SODIUM CHLORIDE 0.9% 100 ML IV PRN (09:10)
[2024-06-17] MEDS: ADVANCED PROBIOTIC 625 MG CAPSULE PO SCH (09:43)
--- NOTE | 2024-06-17 10:32 | Gastroenterology Progress Note ---
Date of Service June 17, 2024 Assessment & Plan (1) Radiation proctitis: Plan: Bleeding seems to have stopped. Will sign off. Please call if GI assistance needed again Admission and Anticipated Discharge Date Admission Date: May 18, 2024 Subjective No blood with stool per patient and nurse. he is feeling well Physical Exam Physical Exam: Very pleasant in no distress Constitutional: WD/WN, vitals as above Results & Data Vital Signs (Past 12 Hours) Vital Signs Temp Pulse Resp BP Pulse Ox O2 Del Method 06/17/24 08:15 36.6 C 83 16 101/53 L 95 Room Air 06/17/24 07:45 Room Air 06/16/24 23:25 Room Air
--- NOTE | 2024-06-17 11:49 | Ultrasound Report ---
US venous doppler LE RT HISTORY: 79 years-old Male swelling, r/o DVT acute pain and swelling of the right lower leg COMPARISON: None TECHNIQUE: Multiple real-time sonographic images of the right lower extremity deep venous structures were obtained assessing grayscale appearance, color and spectral flow. FINDINGS: Normal flow, compressibility, phasicity and augmentation. Subcutaneous edema. IMPRESSION: No sonographic evidence of deep venous thrombosis. ACT 112: Negative or not required by law. The above report was generated using voice recognition software. It may contain grammatical, syntax o r spelling errors. Electronically signed by: Paul Reyna M.D. 06/17/2024 11:48 AM
[2024-06-17] MEDS: BUTT PASTE (ZINC OXIDE 16%) 171 APPLN/57 GM JAR EXT SCH (20:56)
[2024-06-18 07:50] LABS: Hematocrit (blood only) 28.1 % (42.0-52.0); Hemoglobin 9.3 g/dl (14.0-18.0); Mean Corpuscular Hemoglobin 30.9 pg (25.0-34.0); Mean Corpuscular Hgb Conc 33.1 g/dL (32.0-36.0); Mean Corpuscular Volume 93.4 fL (80.0-100.0); Mean Platelet Volume 9.9 fL (9.4-12.4); Platelet Count 100 K/uL (130-400); RDW Coefficient of Variation 19.7 % (11.5-14.5); RDW Standard Deviation 64.8 fL (36.4-46.3); Red Blood Count 3.01 M/uL (4.70-6.10)
[2024-06-18 08:25] LABS: Albumin Level 2.8 gm/dl (3.4-5.0); BUN Creatinine Ratio 18.1 (10-20); Bilirubin Direct 0.3 mg/dl (0-0.2); Calcium 8.5 mg/dl (8.6-10.3); Creatinine Clr Calc Pharmacy 15.5 ml/min; Magnesium 1.9 mg/dl (1.7-2.4); Potassium 4.8 mmol/L (3.5-5.1); Total Protein 5.5 gm/dl (6.0-8.3)
--- NOTE | 2024-06-18 08:41 | Hospitalist Progress Note ---
Date of Service June 18, 2024 Assessment & Plan (1) Acute kidney injury: Plan: Presented with creatinine of 2 at time of admission, baseline creatinine <2 Was hospitalized for nearly a month at [facility] in fall 2023 and was started on HD during the hospitalization. Per records, had hepatorenal syndrome while in [facility] Has intermittently required HD this admission Nephrology following -- HD treatments have been reduced to 2x/week (M,F) MELD Na = 25, very poor prognosis Continue midodrine 10 mg TID for associated hypotension with hepatorenal syndrome Duran catheter removed 06/11 s/p 2 u PRBC on 06/14 for hgb 6.6 (total 3u PRBC while inpatient) -->hgb appropriate increase to 8.5. HD on 06/16, but only able to pull 150cc 2nd to hypotension. Hgb 8.0 on 06/17, type/cross for 2 units and ordered to transfuse 1 but was provided both units. nursing superviser for event report however do suspect benefit with ongoing bleeding in stool w/ clot overnight BUN/Cr 71/3.93 and planning for HD for today and attempting 2L UF and will monitor. Appreciate assistance from nephrology GI on consult/no plans for scope, did notify of reported bleeding overnight for eval/recs Continue lactulose/rifaximin for cirrhosis, ammonia stable 66/moving bowels. Cdiff negative. Continues on PPI BID Remains on midodrine 10mg TID for support, hydrocortisone for adrenal insufficiency/stim testing PT/OT rec SNF, planning at [place] when stable/finding place that can offer HD Renal function/blood counts in AM (2) Acute metabolic encephalopathy: Plan: Ongoing but improving /stable Likely multifactorial cause: toxic effects from seroquel and benzos (both stopped on 05/12), acidosis and uremia, rhinovirus infection and probable bacterial pneumonia; MRI brain negative Continue delirium precautions Continue treating ongoing infections GI on consult MELD SCORE 25 Anusol suppositories BID as able/willing Alert/oriented to person but increased fatigue 06/15 --> REVIEW OF LACTULOSE NOT GIVEN SINCE 06/12 and ammonia ELEVATED to 108 on repeat and had nursing provide --> Ammonia improved/stable 66 and remains on lactulose BID. Can consider decreasing to once daily in AM if further reduced/monitor for increase as needed to prevent further diarrhea/excoriation. PRBC/HD as above for 06/18 planned Mentation stable 06/18 but some depression about ongoing hospitalizations/prognosis. Support provided. Can f/u with palliative if ongoing issues/changes, consideration for antidepressant as needed (3) CHF (congestive heart failure): Plan: Chronic HFpEF, s/p AVR but not on AC 2nd to cirrhosis/coagulopathy Echo 02/29/2024 -- EF 50 to 55%, moderate dilation of RV, LA, RA, mechanical aortic valve in place, trace aortic regurgitation, severe tricuspid regurgitation, diastolic dysfunction grade 3 Metoprolol/bumex on HOLD 2nd to VINICIUS/hypotension and volume overloaded 2nd combination cirrhosis/VINICIUS/diastolic HF HD to volume management as above, repeat HD planned for the morning and getting 1u PRBC for today w/ additional unit on hold if needed [place] 2[place], will need coordinated w/ SNF/rehab. 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 Gets regular colonoscopies by his primary GI doctor. If he continues to bleed, he will manifest it externally as the rectum pushes blood out quickly 2u PRBC on 06/14, Vit K for INR 1.5 (improved to 1.3 on repeat) ANusol attempted, no significant improvement and will stop for now Continue PPI BID, cdiff negative Did have brown BM 12/12 AM but some streaks overnight and then clots/bleeding and additional 2u PRBC provided as above and continuing to monitor. 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 GI re-notified. Will hold off further suppository for now Boost supplements RN to increase OOB to chair/activity as had been up to chair last week Continued PT/OT while inpatient encouraged and plans for SNF w/ HD capabilities [place] and working on looking at facilities closer to home as desired by patient/family Daughter updated 06/16, can update as needed. Instructed to call w/ any questions/concerns. Admission and Anticipated Discharge Date Admission Date: May 18, 2024 Supervising Physician Co-Signing Physician Notes The patient was not seen by me. The chart was reviewed. Case discussed with ROBERT Mccallum. Agree with assessment and plan Subjective EVal this morning, up in dialysis unit. Attempting to get off 2L UF today. Was ordered 1u PRBC yesterday but received 2 units. Hgb currently 9.3. GI notified as reporting clots in bowel movements overnight and some redness subsequently. No CP/increased SOB/abdominal discomfort. Decent appetite but needing some assistance at times, will ensure nursing aware/assist with meals as needed. He does ask "is there no hope?". Discussed attempting measures as able but repeat insult w/ infections/virus/pneumonia/uti/etc and long recovering but hopeful if improvement in activity can continue to plan for rehab closer to home but needing facility with HD capabilities. Support provided. Would like his zuly hose removed. Questions/concerns addressed at this time. Physical Exam 2 Physical Exam: General: chronically ill appearing male sitting up in bed, in HD unit, NAD, depressed affect at times/support provided HEENT: head atraumatic, normocephalic, mmm, trachea midline, HARD OF HEARING (aides in place) Resp; diminished in the bases, no overt wheezing, occasional cough but no rales, on room air CV: RRR, +systolic murmur c/w valve, 1-2+ edema to thighs/sacrum, slightly increased edema RLE compared to the left but pulses present/calves without significant tenderness/redness (IMPROVED w/ zuly hose, however reporting discomfort/can be removed) GI: +BS, +ascites, +distension, no overt tenderness/guarding/rebound MSK/Neuro: nonfocal but generalized weakness, follows commands as able Psych: alert to person/place, intermittent to event/time, cooperative with care Results & Data Results & Data Vital Signs (Past 12 Hours) Vital Signs Temp Pulse Pulse Resp BP BP Pulse Ox 12/13/24 07:20 36.3 C L 89 18 112/67 96 06/18/24 03:07 36.3 C L 86 18 137/74 97 06/18/24 02:25 36.4 C L 86 18 138/77 96 06/18/24 01:25 36.4 C L 87 18 137/77 97 06/18/24 00:55 36.2 C L 86 18 144/77 H 97 06/18/24 00:40 36.4 C L 92 H 18 140/80 98 06/18/24 00:23 36.3 C L 87 18 137/75 96 06/17/24 20:47 O2 Del Method 06/18/24 07:20 Room Air 06/18/24 03:07 06/18/24 02:25 06/18/24 01:25 06/18/24 00:55 06/18/24 00:40 06/18/24 00:23 06/17/24 20:47 Room Air Laboratory Results 06/18/24 07:33 06/18/24 07:33 TB 1.0, DB 0.3 AST 45 ALT 41 ALP 105 Albumin 2.8 PG Care Time/CCT Total # of Minutes Spent Total Time Spent with Patient: Total time spent is greater than 50% in coordination of care (as documented) at patient's floor/unit and/or counseling patient: Coding Level of Care Code 68887 SUB INP/OBS CARE 3/50MIN Diagnoses Acute kidney injury N17.9 Acute metabolic encephalopathy G93.41 CHF (congestive heart failure) I50.9 Radiation proctitis K62.7 Adrenal insufficiency E27.40
--- NOTE | 2024-06-18 08:42 | Nephrology Progress Note ---
Date of Service June 18, 2024 Assessment & Plan (1) Acute kidney injury: Plan: * Will provide HD today for urea clearance and attempt 2 L UF. Orders placed in EMR and HD RN notified * Continue to monitor BMP (2) Hepatorenal syndrome: Plan: * Remains on midodrine 10 mg TID for associated hypotension. Prognosis remains poor * 06/11/24 PT note - fatigues easily, requires assistance to get OOB, has sacral wounds. 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 Bleeding has slowed. Manage conservatively Admission and Anticipated Discharge Date Admission Date: May 18, 2024 Subjective Mr. Jarquin was evaluated in his hospital room this morning. He was preparing for HD. Mr. Jarquin reports small bloody BM this morning but denies fever, angina, dyspnea or abdominal discomfort. Review of Systems Constitutional: no fever Eyes: no problem reported Ear, Nose, Mouth, Throat: no problem reported Respiratory: no dyspnea Cardiovascular: no chest pain Gastrointestinal: no abdominal pain, no nausea, no vomiting and no diarrhea/loose stools Physical Exam Constitutional: not in distress Eyes: PERRL, conjunctivae normal, anicteric sclerae ENMT: external ear and nose normal, oropharynx normal Neck: trachea midline, no thyromegaly Respiratory: normal respiratory effort, lungs clear to auscultation Cardiovascular: RRR, no murmur, no edema Gastrointestinal (Abdomen): normal bowel sounds, soft, nontender, no hepatosplenomegaly Musculoskeletal: Extremities: no cyanosis and no clubbing Skin: no rashes, warm and dry Neurologic: awake; not confused Results & Data Vital Signs (Past 12 Hours) Vital Signs Temp Pulse Pulse Resp BP BP Pulse Ox 06/18/24 07:20 36.3 C L 89 18 112/67 96 06/18/24 03:07 36.3 C L 86 18 137/74 97 06/18/24 02:25 36.4 C L 86 18 138/77 96 06/18/24 01:25 36.4 C L 87 18 137/77 97 06/18/24 00:55 36.2 C L 86 18 144/77 H 97 06/18/24 00:40 36.4 C L 92 H 18 140/80 98 06/18/24 00:23 36.3 C L 87 18 137/75 96 06/17/24 20:47 O2 Del Method 06/18/24 07:20 Room Air 06/18/24 03:07 06/18/24 02:25 06/18/24 01:25 06/18/24 00:55 06/18/24 00:40 06/18/24 00:23 06/17/24 20:47 Room Air Laboratory Results Laboratory Results - last 24 hr 06/17/24 06/18/24 06/18/24 09:49 07:33 07:35 WBC 6.80 RBC 3.01 L Hgb 9.3 L Hct 28.1 L MCV 93.4 MCH 30.9 MCHC 33.1 RDW Std Deviation 64.8 H RDW Coeff of Nick 19.7 H Plt Count 100 L MPV 9.9 Sodium 135 L Potassium 4.8 Chloride 103 Carbon Dioxide 22 Anion Gap 10 BUN 71 H Creatinine 3.93 H D Est Cr Clr Drug Dosing 15.5 eGFR 14.91 BUN/Creatinine Ratio 18.1 Glucose 78 Calcium 8.5 L Magnesium 1.9 Total Bilirubin 1.0 Direct Bilirubin 0.3 H AST 45 H ALT 41 Alkaline Phosphatase 105 H Ammonia 66.0 Total Protein 5.5 L Albumin 2.8 L Blood Type O Negative Antibody Screen NEGATIVE Crossmatch See Detail PG Care Time/CCT Total # of Minutes Spent Total Time Spent with Patient: Total time spent is greater than 50% in coordination of care (as documented) at patient's floor/unit and/or counseling patient: Coding Level of Care Code 03652 SUB INP/OBS CARE 3/50MIN Diagnoses Acute kidney injury N17.9 Hepatorenal syndrome K76.7 Anemia D64.9 Anemia type: unspecified type (3) Anemia Anemia type: unspecified type Qualified Code(s): D64.9 - Anemia, unspecified
[2024-06-18] MEDS: EPOETIN ALFA 10,000 UNITS/ML VIAL IV ONE (10:40)
[2024-06-18] MEDS: IRON SUCROSE 200 MG in SYRINGE 0 ML IV ONE (10:40)
--- NOTE | 2024-06-18 11:43 | Gastroenterology Progress Note ---
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 He has had some further bleeding over night and was given 2 units PRBC. hgb improved from 8 to 9.3. - would continue with supportive care. - follow hgb/hct, transfuse as needed. - could consider flex sig with APC for Friday. - I will discuss this case further with Dr. Hurley, further recommendations to follow. Admission and Anticipated Discharge Date Admission Date: May 18, 2024 Subjective GI was asked to come back to see patient as he had some rectal bleeding again last evening. I had discussed this case with Verona Santiago PAC. per primary team, he was given 2 units of PRBC and hgb went from 8 to 9.3. patient tells me that in the past he had APC done via his primary GI in [place]. per review of chart, it sounds like this may have happened last in November 2023 though I do not have these records. I saw the patient today while receiving dialysis. he lethargic and hard to get information from. Review of Systems Review of Systems: Unobtainable due to cognitive status Physical Exam Constitutional: WD/WN, vitals as above ENMT: hard of hearing Respiratory: normal respiratory effort, lungs clear to auscultation Cardiovascular: Rate/Rhythm: regular rate and regular rhythm Gastrointestinal (Abdomen): normal bowel sounds, soft, nontender, no hepatosplenomegaly Psychiatric: Orientation: alert lethargic and some confusion Results & Data Results & Data Vital Signs (Past 12 Hours) Vital Signs Temp Pulse Pulse Pulse Resp BP BP 06/18/24 11:00 81 92/61 L 06/18/24 10:30 91 H 93/55 L 06/18/24 10:00 81 97/57 L 06/18/24 09:30 86 97/56 L 06/18/24 09:15 82 94/61 L 06/18/24 09:06 97.3 F L 92 H 06/18/24 07:20 97.3 F L 89 18 112/67 06/18/24 03:07 97.3 F L 86 18 137/74 06/18/24 02:25 97.5 F L 86 18 138/77 06/18/24 01:25 97.5 F L 87 18 137/77 06/18/24 00:55 97.2 F L 86 18 144/77 H 06/18/24 00:40 97.5 F L 92 H 18 140/80 06/18/24 00:23 97.3 F L 87 18 137/75 Pulse Ox O2 Del Method 06/18/24 11:00 06/18/24 10:30 06/18/24 10:00 06/18/24 09:30 06/18/24 09:15 06/18/24 09:06 06/18/24 07:20 96 Room Air 06/18/24 03:07 97 06/18/24 02:25 96 06/18/24 01:25 97 06/18/24 00:55 97 06/18/24 00:40 98 06/18/24 00:23 96 Coding Level of Care Code 77155 SUB INP/OBS CARE 2/35MIN Diagnoses Radiation proctitis K62.7 Time Spent (min) 35
[2024-06-19 07:26] LABS: Hematocrit (blood only) 28.7 % (42.0-52.0); Hemoglobin 9.3 g/dl (14.0-18.0); Mean Corpuscular Hgb Conc 32.4 g/dL (32.0-36.0); Mean Corpuscular Volume 95.7 fL (80.0-100.0); Mean Platelet Volume 10.1 fL (9.4-12.4); Platelet Count 76 K/uL (130-400); RDW Coefficient of Variation 20.3 % (11.5-14.5); RDW Standard Deviation 67.6 fL (36.4-46.3); White Blood Count 5.41 K/ul (4.8-10.8)
[2024-06-19 08:00] LABS: Calcium 8.3 mg/dl (8.6-10.3); Creatinine Clr Calc Pharmacy 18.8 ml/min; Potassium 4.1 mmol/L (3.5-5.1)
--- NOTE | 2024-06-19 08:40 | Hospitalist Progress Note ---
Date of Service June 19, 2024 Assessment & Plan (1) Acute kidney injury: Plan: Presented with creatinine of 2 at time of admission, baseline creatinine <2 Was hospitalized for nearly a month at [facility] in fall 2023 and was started on HD during the hospitalization. Per records, had hepatorenal syndrome while in [facility] Has intermittently required HD this admission Nephrology following -- HD treatments have been reduced to 2x/week (M,F) MELD Na = 25, very poor prognosis Continue midodrine 10 mg TID for associated hypotension with hepatorenal syndrome Duran catheter removed 06/11 s/p 2 u PRBC on 06/14 for hgb 6.6 (total 3u PRBC while inpatient) -->hgb appropriate increase to 8.5. HD on 06/16, but only able to pull 150cc 2nd to hypotension. Hgb 8.0 on 06/17, type/cross for 2 units and ordered to transfuse 1 but was provided both units. nursing superviser for event report however do suspect benefit with ongoing bleeding in stool w/ clot overnight BUN/Cr 71/3.93 on 06/18 and planned for HD for attempt 2L UF. Appreciate assistance/management GI on consult/no plans for scope, did notify of reported bleeding overnight for eval/recs Continue lactulose/rifaximin for cirrhosis, ammonia stable 66/moving bowels. Cdiff negative. Continues on PPI BID Remains on midodrine 10mg TID for support, hydrocortisone for adrenal insufficiency/stim testing 06/19 Hgb stable at 9.3 s/p 2u PRBC day prior s/p HD for 2.2L UF, monitoring for continued bleeding. Buttpast for excoriations but ongoing streaking but no furthr clots throughout day 06/18 reported and deferred repeat blood count in afternoon to prevent re-stick Asked GI to see again yesterday given what appears hx APC treatment in past/varices and plans for flex sig on Friday w/ [place] BP appearing stable/IMPROVED following HD and 121/60 in the evening and remaining stable 121/60 this morning Can consider dose calcium gluconate as given multiple units of blood, ca stable at 8.3 but can consider to decrease bleeding risk Nursing assisting with meals, improved PO intake/diet. Continues on supplements Plans to get patient out of bed to chair for lunch PT/OT rec SNF, planning at dc when stable/finding place that can offer HD (2) Acute metabolic encephalopathy: Plan: Ongoing but improving /stable Likely multifactorial cause: toxic effects from seroquel and benzos (both stopped on 05/12), acidosis and uremia, rhinovirus infection and probable bacterial pneumonia; MRI brain negative Continue delirium precautions Continue treating ongoing infections GI on consult MELD SCORE 25 Anusol suppositories BID as able/willing Alert/oriented to person but increased fatigue 06/15 --> REVIEW OF LACTULOSE NOT GIVEN SINCE 06/12 and ammonia ELEVATED to 108 on repeat and had nursing provide --> Ammonia improved/stable 66 and remains on lactulose BID but if further reduced in AM will change to once daily given diarrhea but will need to monitor PRBC/HD as above, hgb stable Mentation stable 06/18 but some depression about ongoing hospitalizations/prognosis. Support provided. Can f/u with palliative if ongoing issues/changes, consideration for antidepressant as needed Improved mood today, remains stable (3) CHF (congestive heart failure): Plan: Chronic HFpEF, s/p AVR but not on AC 2nd to cirrhosis/coagulopathy Echo 02/29/2024 -- EF 50 to 55%, moderate dilation of RV, LA, RA, mechanical aortic valve in place, trace aortic regurgitation, severe tricuspid regurgitation, diastolic dysfunction grade 3 Metoprolol/bumex on HOLD 2nd to VINICIUS/hypotension and volume overloaded 2nd combination cirrhosis/VINICIUS/diastolic HF HD to volume management as above 2.2L UF on 06/18 and planning for 2x/wk at dc, will need coordinated w/ SNF/rehab. 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 Gets regular colonoscopies by his primary GI doctor. If he continues to bleed, he will manifest it externally as the rectum pushes blood out quickly 2u PRBC on 06/14, Vit K for INR 1.5 (improved to 1.3 on repeat) Additional 2u provided 06/17-06/18. Hgb stable on repeat. Did have increased clots in BM overnight reported and GI notified and on for flex sig on Friday for eval Continue PPI BID, cdiff negative. 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 Had discussed w/ daughter this past week and patient wanting to get up/out of bed and discussed w/ nursing as unclear why had not been done/lactulose not given for his cirrhosis and then w/ elevated ammonia lactulose resumed for elevated ammonia, cdiff negative. butt paste ordered and encouraged nursing to get out of bed (to be done this afternoon) to prevent worsening weakness/immobilization/etc. Venous doppler negative for DVT Wound care consulted, waffle cushion. Frequent turn/reposition. Will need to continue to monitor Plan Dispo: continued inpatient stay, HD per nephrology. GI plans for flex sig on Friday. Nursing w/ improvement in assisting with meals and planning to get OOB to chair today/increase activity. Appears wth stage III pressure sore to buttocks along with some excoriations from diarrhea. cdiff negative/not on antibiotics at this time. Waffle cushion ordered. Frequent turn/reposition recommended and cdiff negative/not on antibiotics at this time. Continues supplements, zuly hose effective to mobilize fluid from legs. BP stable and remains on midodrine. Possible decrease hydrocortisone in AM pending BPs but cautious to prevent hypotension GI planning for flex sig on Friday for eval given prior hx/ongoing transfusions Continued PT/OT while inpatient encouraged and plans for SNF w/ HD capabilities [place] and working on looking at facilities closer to home as desired by patient/family Plan to update family this weekend Admission and Anticipated Discharge Date Admission Date: May 18, 2024 Supervising Physician Co-Signing Physician Notes The patient was not seen by me. The chart was reviewed. Case discussed with ROBERT Mccallum. Agree with assessment and plan Subjective Evaluated this morning, sitting up in bed. He reports "they helped me with breakfast" as discussed with him yesterday having difficulty with the weakness. Nursing assisted to feed breakfast, ate 100%. Appears improved today. Moving bowels, no significant large clots noted, does have ongoing streaking but has hemorrhoids as well. RN to give dose Tylenol for pain, also planning to get him up to chair this afternoon. Discussed possible flex sig on Friday, he asked "am I going to be ready for that". Discussed labs do appear stable/improved. Has the zuly hose to legs, not reporting significant discomfort and will continue use for now. No chest pain/shortness of breath. Ongoing abdominal distension but resolution in leg edema today following HD yesterday and was able to remove little over 2L w HD Questions/concerns addressed, will plan to touch base with family over the weekend regarding plan. Physical Exam 2 Physical Exam: General: chronically ill appearing male sitting up in bed, improved from yesterday, reported good breakfast, improved spirits, VERY HARD OF HEARING, would like some tylenol for his butt HEENT: head atraumatic, normocephalic, mm improved, trachea midline, HARD OF HEARING (aides in place) Resp; diminished in the bases, no overt wheezing, occasional cough but no rales, on room air CV: RRR, +systolic murmur c/w valve, edema to LE MUCH IMPROVED, zuly hose in place GI: +BS, +ascites improved, continued distension but no overt tenderness/guarding MSK/Neuro: nonfocal but generalized weakness, follows commands as able Psych: alert to person/place, intermittent to event/time, cooperative with care Skin: sacrum w/ excoriations,, pressure sore to superior aspect, chair w/ waffle cushion in place for later today Results & Data Results & Data Vital Signs (Past 12 Hours) Vital Signs Temp Pulse Resp BP Pulse Ox O2 Del Method 06/19/24 07:40 36.6 C 81 16 121/60 96 Room Air 06/18/24 22:04 Room Air Laboratory Results 06/19/24 07:12 06/19/24 07:12 PG Care Time/CCT Total # of Minutes Spent Total Time Spent with Patient: Total time spent is greater than 50% in coordination of care (as documented) at patient's floor/unit and/or counseling patient: Coding Level of Care Code 35167 SUB INP/OBS CARE 350MIN Diagnoses Acute kidney injury N17.9 Acute metabolic encephalopathy G93.41 CHF (congestive heart failure) I50.9 Radiation proctitis K62.7 Adrenal insufficiency E27.40 Stage III pressure sore L89.93
--- NOTE | 2024-06-19 11:27 | Nephrology Progress Note ---
Date of Service June 19, 2024 Assessment & Plan (1) Acute kidney injury: (2) Anemia: (3) Generalized weakness: Plan 79-year-old male with h/o stage 4 CKD with baseline creatinine 2.0 mg/dl dating back to at least 08/30. He was hospitalized recently at [facility] for hepatorenal syndrome and required initiation of HD but stopped ~ 1 month ago, still has a R IJ TCC in place. He was admitted on 05/18/2024 for evaluation of gross hematuria, mental status changes, INR 13 and creatinine 2.0. Renal ultrasound negative for hydronephrosis. Kidney function continued to worsen with oliguria and no improvement in mental status and he was restarted on HD on 05/27/24 for oliguric VINICIUS. He remains dialysis dependent for last almost a month, possibly reaching end-stage. Continue on maintenance hemodialysis had dialysis yesterday, currently blood pressure 8, electrolyte, volume status acceptable. --plan for dialysis Friday. --Dose medications for eGFR less than 10 --Waiting on discharge to rehab. Admission and Anticipated Discharge Date Admission Date: May 18, 2024 Sal[place] Cobos was seen and evaluated this morning. He was clinically stable, comfortable denied any symptoms but he was extremely hard of hearing. Blood pressure well- controlled. Volume status acceptable. Electrolyte acceptable. Had dialysis yesterday. Review of Systems Review of Systems: Detailed review of system was done and denied any symptoms. Physical Exam Constitutional: WD/WN, vitals as above Eyes: + anicteric sclerae Respiratory: Auscultation: lungs clear to auscultation bilaterally Cardiovascular: Rate/Rhythm: regular rate and regular rhythm Heart Sounds: normal S1 and normal S2 Extremities: no edema Skin: no ulcers Neurologic: moves all extremities; not confused Psychiatric: Awake, alert. Results & Data Vital Signs (Past 12 Hours) Vital Signs Temp Pulse Resp BP Pulse Ox O2 Del Method 06/19/24 07:40 36.6 C 81 16 121/60 96 Room Air PG Care Time/CCT Total # of Minutes Spent Total Time Spent with Patient: Total time spent is greater than 50% in coordination of care (as documented) at patient's floor/unit and/or counseling patient: Coding Level of Care Code 38858 SUB INP/OBS CARE 2/35MIN Diagnoses Acute kidney injury N17.9 Anemia D64.9 Anemia type: unspecified type Generalized weakness R53.1 (2) Anemia Anemia type: unspecified type Qualified Code(s): D64.9 - Anemia, unspecified
[2024-06-20 06:54] LABS: Hematocrit (blood only) 30.1 % (42.0-52.0); Hemoglobin 9.7 g/dl (14.0-18.0); Mean Corpuscular Hemoglobin 30.6 pg (25.0-34.0); Mean Corpuscular Hgb Conc 32.2 g/dL (32.0-36.0); Mean Platelet Volume 10.5 fL (9.4-12.4); Platelet Count 104 K/uL (130-400); RDW Coefficient of Variation 20.7 % (11.5-14.5); RDW Standard Deviation 68.6 fL (36.4-46.3); Red Blood Count 3.17 M/uL (4.70-6.10); White Blood Count 6.83 K/ul (4.8-10.8)
[2024-06-20 07:06] LABS: Albumin Level 2.9 gm/dl (3.4-5.0); BUN Creatinine Ratio 17.6 (10-20); Calcium 8.7 mg/dl (8.6-10.3); Creatinine Clr Calc Pharmacy 16.2 ml/min; Globulin 2.9 gm/dl (2.5-4.0); Potassium 4.5 mmol/L (3.5-5.1); Total Protein 5.8 gm/dl (6.0-8.3)
[2024-06-20 07:16] LABS: INR 1.4 (0.9-1.1); Prothrombin Time 14.3 Seconds (9.0-12.0)
--- NOTE | 2024-06-20 08:43 | Hospitalist Progress Note ---
Date of Service June 20, 2024 Assessment & Plan (1) Acute kidney injury: Plan: Presented with creatinine of 2 at time of admission, baseline creatinine <2 Was hospitalized for nearly a month at [facility] in fall 2023 and was started on HD during the hospitalization. Per records, had hepatorenal syndrome while in [facility] Has intermittently required HD this admission Nephrology following -- HD treatments have been reduced to 2x/week (M,F) MELD Na = 23 presently (06/20), very poor prognosis 2u PRBC on 06/14 for hgb 6.6 as prior ordered 1u earlier in the stay HD on 06/16 for 150cc. Limited 2nd to hypotension. -Already have dc BB/bumex and using HD for volume management -Continues on midodrine 10 mg TID for associated hypotension with hepatorenal syndrome. Hydrocortisone 20/10mg for adrenal insufficiency 2u PRBC on 06/18 ordered for hgb 8.0 with ongoing blood in stool. GI notified for eval given variceal bleeding in the past/APC (noting didn't "tolerate well on attempt" per daughter at [facility] earlier this year). Flex sig planned on friday. HD on 06/19 and was able to PULL OFF 2.2L UF BPs MUCH IMPROVED, 127/65 today. --Review prior events w/ marvin removed on 06/11 and not retaining/minimal UOP 2nd to hepatorenal syndrome and FLOMAX HELD and does appear BP remaining stable/no issues since that time. Can attempt to wean hydrocortisone to 15/5mg in AM Blood now only streaks but stool is brown in color and hgb stable/improved 9.7. BUN/Cr stable, electrolytes stable. Flex sig planned in AM and nephrology planning for HD. Appreciate assistance PT/OT rec rehab, CM following. Nursing assisting with meals/getting OOB. Monitor sacral wound in f/u (2) Acute metabolic encephalopathy: Plan: Ongoing but improving /stable Likely multifactorial cause: toxic effects from seroquel and benzos (both stopped on 05/12), acidosis and uremia, rhinovirus infection and probable bacterial pneumonia; MRI brain negative Continue delirium precautions Continue treating ongoing infections GI on consult MELD SCORE 25--> 23 Anusol suppositories BID as able/willing Lactulose had been continued but increased fatigue/confusion 06/15 and had NOT been given lactulose since 06/12 and ammonia was ELEVATED to 108 --> discussed w/ nursing and was continued and ammonia improved to 66 and was remaining on such. Consideration to reduce to once daily but nursing skipped 2 doses (no hold instructions in order verified) and should be CONTINUE PRIOR discussed to prevent elevation/hepatic encephalopathy and appears improved PRBC/HD as above for volume management. Flomax held. Supportive care, frequent orientation encouraged with wake/sleep schedules. Montior for depression. (3) CHF (congestive heart failure): Plan: Chronic HFpEF, s/p AVR but not on AC 2nd to cirrhosis/coagulopathy Echo 02/29/2024 -- EF 50 to 55%, moderate dilation of RV, LA, RA, mechanical aortic valve in place, trace aortic regurgitation, severe tricuspid regurgitation, diastolic dysfunction grade 3 Metoprolol/bumex on HOLD 2nd to VINICIUS/hypotension and volume overloaded 2nd combination cirrhosis/VINICIUS/diastolic HF HD to volume management as above 2.2L UF on 06/18 and planning for 2x/wk at in (next treatment on FRIDAY) --will need coordinated w/ SNF/rehab. CM following (4) Radiation proctitis: Plan: Prior radiation for prostate cancer resulted in radiation proctitis - Intermittent BRBPR, APPEARS IMPROVING but still with some streaking. Hgb stable/improved but has received 5u PRBC during inpatient stay (along with dose of vitamin K) and prior reported variceal bleeding and reached back to GI as above Continues on PPI BID Cdiff negative Plan for flex sig in AM. 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 Daughter reports patient had steroids while in [place] cosyntropin stim test this admission -- did not pass did not stim to >18 baseline cortisol was low at 3 initially on dexamethasone now over to hydrocortisone 20mg/10mg -->eventual plan to wean slowly to basal dosing of 15mg and 5mg, respectively however w/ continued BP issues/midodrine use has been continued but is improved but gotten additional PRBC and 2.2L UF with HD Review of meds and low UOP above and flomax held to prevent worsening hypotension w/ improvement as above -> attempting to wean hydrocortisone in next 24 hours on 06/21 pending serial BP measurements (6) Stage III pressure sore: Plan: noted on exam, had been in bed most of week prior when previously up out of bed to chair the prior week. Had discussed w/ daughter this past week and patient wanting to get up/out of bed and discussed w/ nursing as unclear why had not been done/lactulose not given for his cirrhosis and then w/ elevated ammonia lactulose resumed for elevated ammonia (TO CONTINUE), cdiff negative. butt paste ordered and encouraged nursing to get out of bed (to be done this afternoon) to prevent worsening weakness/immobilization/etc. Venous doppler negative for DVT Wound care consulted, waffle cushion. Frequent turn/reposition. Will need to continue to monitor Plan Dispo: continued inpatient stay, HD per nephrology in AM and GI planning for flex sig for ongoing streaks of blood in stool noted/hx variceal bleeding, hgb stable at this time. Flomax to remain on hold/monitor for issues. Possible wean steroids tomorrow if BP allowing. Monitoring stage III pressure sore to buttocks, waffle cushion in place and cdiff negative. --Nursing has done great job last 24 hours getting up for meals to chair and was up for breakfast and lunch when I saw him with improvement in discomfort. Nursing to continue to assist with meals/encourage nutrition Continued PT/OT while inpatient encouraged and plans for SNF w/ HD capabilities at in and working on looking at facilities closer to home as desired by patient/family Updated daughter via phone 06/19. Has been checking status on portal/relayed update to her mother and reports GI did call mom day prior about scope but should be relayed he "didn't tolerate well" to see about further discussion if needed prior to intervention pending repeat labs/exam Admission and Anticipated Discharge Date Admission Date: May 18, 2024 Supervising Physician Co-Signing Physician Notes The patient was not seen by me. The chart was reviewed. Case discussed with ROBERT Mccallum. Agree with assessment and plan Subjective Eval this morning, sitting up in the chair. Had been OOB to chair yesterday as well as this morning for breakfast. Good appetite. Moving bowels, brown in color but with some red streaking around but hgb remaining stable. LE edema improved but more in thighs/buttocks. Waffle cushion in place and pain a little better today/controlled. Continued ambulation encouraged, planning for HD tomorrow. Nursing to assist with getting his meals into him/nutrition encouraged. Denied CP/SOB. No nausea/vomiting. Updated daughter on plan last evening, possible flex sig in AM pending eval/labs/etc. Questions/concerns addressed at this time. Physical Exam 2 Physical Exam: General: chronically ill appearing male sitting up in CHAIR, eating lunch, appears improved but needing assistance with lunch HEENT: head atraumatic, normocephalic, mm improved, trachea midline, HARD OF HEARING (aides in place\\, one broken) Resp; diminished in the bases, no overt wheezing, occasional cough (none today) but no rales, on room air CV: RRR, +systolic murmur c/w valve, edema to LE MUCH IMPROVED, zuly hose in place but do note edema to thighs/buttocks GI: +BS, +ascites stable, +distension but no overt tenderness/guarding or rebound MSK/Neuro: nonfocal but generalized weakness, follows commands as able Psych: alert to person/place, intermittent to event/time, cooperative with care Skin: sacrum w/ excoriations,, pressure sore to superior aspect, chair w/ waffle cushion in place Results & Data Results & Data Vital Signs (Past 12 Hours) 06/20/24 06:33 06/20/24 06:33 INR 1.4 TB 1.0 AST 43 ALT 40 ALP 124 Ammonia 84 Albumin 2.9 Mag 2.0 PG Care Time/CCT Total # of Minutes Spent Total Time Spent with Patient: Total time spent is greater than 50% in coordination of care (as documented) at patient's floor/unit and/or counseling patient: Coding Level of Care Code 25461 SUB INP/OBS CARE 3/50MIN Diagnoses Acute kidney injury N17.9 Acute metabolic encephalopathy G93.41 CHF (congestive heart failure) I50.9 Radiation proctitis K62.7 Adrenal insufficiency E27.40 Stage III pressure sore L89.93
--- NOTE | 2024-06-20 10:46 | Nephrology Progress Note ---
Date of Service June 20, 2024 Assessment & Plan (1) Acute kidney injury: (2) Anemia: (3) Generalized weakness: Plan 79-year-old male with h/o stage 4 CKD with baseline creatinine 2.0 mg/dl dating back to at least 08/30. He was hospitalized recently at [facility] for hepatorenal syndrome and required initiation of HD but stopped ~ 1 month ago, still has a R IJ TCC in place. He was admitted on 05/18/2024 for evaluation of gross hematuria, mental status changes, INR 13 and creatinine 2.0. Renal ultrasound negative for hydronephrosis. Kidney function continued to worsen with oliguria and no improvement in mental status and he was restarted on HD on 05/27/24 for oliguric VINICIUS. He remains dialysis dependent for last almost a month, possibly reaching end-stage. Continue on maintenance hemodialysis, currently blood pressure , electrolyte, volume status acceptable. --plan for dialysis Friday. --Dose medications for eGFR less than 10 --Waiting on discharge to rehab. Admission and Anticipated Discharge Date Admission Date: May 18, 2024 Sal[place] Cobos was seen and evaluated this morning. He was clinically stable, comfortable denied any symptoms. Blood pressure well-controlled. Volume status acceptable. Electrolyte acceptable. Review of Systems Review of Systems: Detailed review of system was done and denied any symptoms. Physical Exam Constitutional: WD/WN, vitals as above + ill appearing; no acute distress Eyes: + anicteric sclerae Respiratory: Auscultation: lungs clear to auscultation bilaterally Cardiovascular: Rate/Rhythm: regular rate and regular rhythm Heart Sounds: normal S1 and normal S2 Extremities: no edema Skin: + turgor decreased and + skin atrophy Neurologic: moves all extremities Psychiatric: awake, alert. Results & Data Vital Signs (Past 12 Hours) Vital Signs Temp Pulse Resp BP Pulse Ox O2 Del Method 06/20/24 09:30 36.5 C 90 18 127/65 96 Room Air PG Care Time/CCT Total # of Minutes Spent Total Time Spent with Patient: Total time spent is greater than 50% in coordination of care (as documented) at patient's floor/unit and/or counseling patient: Coding Level of Care Code 85312 SUB INP/OBS CARE 1/25MIN Diagnoses Acute kidney injury N17.9 Anemia D64.9 Anemia type: unspecified type Generalized weakness R53.1 (2) Anemia Anemia type: unspecified type Qualified Code(s): D64.9 - Anemia, unspecified
[2024-06-20] MEDS: ALBUT/IPRATROP 3MG/0.5MG NEB 3 ML VIAL NEB PRN (22:14)
[2024-06-21] MEDS: SOD PHOSPHATE/SOD BIPHOSPHATE ENEMA 132 ML BTL PR ONE (06:23)
--- NOTE | 2024-06-21 08:32 | Nephrology Progress Note ---
Date of Service June 21, 2024 Assessment & Plan (1) Acute kidney injury: (2) Anemia: (3) Generalized weakness: Plan 79-year-old male with h/o stage 4 CKD with baseline creatinine 2.0 mg/dl dating back to at least 08/30. He was hospitalized recently at [facility] for hepatorenal syndrome and required initiation of HD but stopped ~ 1 month ago, still has a R IJ TCC in place. He was admitted on 05/18/2024 for evaluation of gross hematuria, mental status changes, INR 13 and creatinine 2.0. Renal ultrasound negative for hydronephrosis. Kidney function continued to worsen with oliguria and no improvement in mental status and he was restarted on HD on 05/27/24 for oliguric VINICIUS. He remains dialysis dependent for last almost a month, possibly reaching end-stage. Continue on maintenance hemodialysis, currently blood pressure , electrolyte, volume status acceptable. --dialysis today --Dose medications for eGFR less than 10 --Waiting on discharge to rehab. Admission and Anticipated Discharge Date Admission Date: May 18, 2024 Subjective Papito was seen and evaluated this morning. He denied any symptoms. Blood pressure well-controlled. Volume status acceptable. Electrolyte acceptable. Review of Systems Review of Systems: Detailed review of system was done and denied any symptoms. Physical Exam Constitutional: WD/WN, vitals as above + ill appearing; no acute distress Eyes: + anicteric sclerae Respiratory: Auscultation: lungs clear to auscultation bilaterally Cardiovascular: RRR, no murmur, no edema Skin: + turgor decreased and + skin atrophy Neurologic: moves all extremities Psychiatric: awake, alert. Results & Data Vital Signs (Past 12 Hours) Vital Signs Temp Pulse Resp BP Pulse Ox O2 Del Method 06/21/24 06:17 36.5 C 79 18 144/71 H 97 Room Air 06/20/24 22:14 88 28 H 95 Room Air 06/20/24 21:50 Room Air PG Care Time/CCT Total # of Minutes Spent Total Time Spent with Patient: Total time spent is greater than 50% in coordination of care (as documented) at patient's floor/unit and/or counseling patient: Coding Level of Care Code 06667 SUB INP/OBS CARE 2/35MIN Diagnoses Acute kidney injury N17.9 Anemia D64.9 Anemia type: unspecified type Generalized weakness R53.1 (2) Anemia Anemia type: unspecified type Qualified Code(s): D64.9 - Anemia, unspecified
--- NOTE | 2024-06-21 08:41 | Hospitalist Progress Note ---
Date of Service June 21, 2024 Assessment & Plan (1) Acute kidney injury: Plan: Presented with creatinine of 2 at time of admission, baseline creatinine <2 Was hospitalized for nearly a month at [facility] in fall 2023 and was started on HD during the hospitalization. Per records, had hepatorenal syndrome while in [facility] Has intermittently required HD this admission Nephrology following -- HD treatments have been reduced to 2x/week (M,F) MELD Na = 23 presently (06/20), very poor prognosis s/p HD on 06/18 for 2.2L, prior limited 2nd to hypotension issues on 06/16 Has received total 5u PRBC while inpatient -- Less bleeding with bowel movements, ongoing streaking however hx variceal bleeding/APC in past. GI consulted/flex sig for nonHD day Hgb stable/continued improvement to 10.4 Hydrocortisone 20mg/10mg continued for adrenal insufficiency however BPs STABLE over past 24 hours and DECREASE to 15mg/5mg for today and monitor on midodrine. Prior bumex/entreso stopped. Flomax placed to HOLD given limited UOP and had been continued on 0.8mg HS daily BUN/Cr 73/4.34 today --Nephrology planning for HD. Hpeful able to pull off additional fluid given improvement in BPs Continues on midodrine 10mg TID for BP support, possible titration pending serial BP measurements Eventual plan for rehab once facility with capability able to accept when medically stable. Plans for flex sig in AM/NPO at midnight Labs in AM (2) Acute metabolic encephalopathy: Plan: Ongoing, waxing/waning Likely multifactorial cause: toxic effects from seroquel and benzos (both stopped on 05/12), acidosis and uremia, rhinovirus infection and probable bacterial pneumonia; MRI brain negative Continue delirium precautions Continue treating ongoing infections GI on consult MELD SCORE 25--> 23 at present Ammonia elevation prior 2nd to nursing not providing and has been discussed/continued. Repeat ammonia for today/escalation in lactulose if needed Supportive care, frequent orientation encouraged with wake/sleep schedules. Monitor for depression. (3) CHF (congestive heart failure): Plan: Chronic HFpEF, s/p AVR but not on AC 2nd to cirrhosis/coagulopathy Echo 02/29/2024 -- EF 50 to 55%, moderate dilation of RV, LA, RA, mechanical aortic valve in place, trace aortic regurgitation, severe tricuspid regurgitation, diastolic dysfunction grade 3 Metoprolol/bumex on HOLD 2nd to VINICIUS/hypotension and volume overloaded 2nd combination cirrhosis/VINICIUS/diastolic HF HD to volume management as above 2.2L UF on 06/18 and planning for HD for today for volume management Plan for 2x/wk at [facility] and will need coordinated w/ SNF/rehab (4) Radiation proctitis: Plan: Prior radiation for prostate cancer resulted in radiation proctitis - Intermittent BRBPR, APPEARS IMPROVING but still with some streaking. 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 Daughter reports patient had steroids while in [place] cosyntropin stim test this admission -- did not pass did not stim to >18 baseline cortisol was low at 3 initially on dexamethasone and transitioned to hydrocortisone 20mg/10mg Was prior trying to wean but ongoing issues w/ bleeding/BP and had been continued with PRBC/HD support and FLOMAX NOW ON HOLD w/ improvement -> attempting to wean hydrocortisone as above and changing to 15mg/5mg for today (06/21) (6) Stage III pressure sore: Plan: noted on exam, had been in bed most of week prior when previously up out of bed to chair the prior week. Had discussed w/ daughter this past week and patient wanting to get up/out of bed and discussed w/ nursing as unclear why had not been done/lactulose not given for his cirrhosis and then w/ elevated ammonia lactulose resumed for elevated ammonia (TO CONTINUE), cdiff negative. butt paste ordered and encouraged nursing to get out of bed (has been up to chair for multiple meals this weekend, continue to encourage nursing to continue such) to prevent worsening weakness/immobilization/etc. Venous doppler negative for DVT, zuly olson for LE edema w/ imrpovement Wound care consulted, ivelisse stephens. Frequent turn/reposition. Continued monitoring Will need to continue to monitor Plan Dispo: continued inpatient stay, HD per nephrology for today, GI plans for flex sig tomorrow on non HD day Check ammonia/elevation in lactulose as needed Rehab w/ HD capability at [facility] planned, CM following Updated family over the weekend on plan, can continue to update as progresses Admission and Anticipated Discharge Date Admission Date: May 18, 2024 Supervising Physician Co-Signing Physician Notes ROBERT Supervision Note: I did not personally see or examine the patient today, but I verified all saenz points of ROBERT Santiago's assessment and plan with the following exceptions/additions: None Subjective EVal this morning. Sitting up in bed Was waiting for flex sig, but planning for tomorrow. Diet has been ordered as appears still NPO. Would like warm blanket. Appears stable at this time, some intermittent confusion but pleasant/cooperative. Per nursing, overnight bowel movement with blood streak but otherwise brown in color, hgb stable. Will check ammonia given mentation to ensure not further elevated or needing escalation in lactulose but has been given per MAR. Physical Exam 2 Physical Exam: General: chronically ill appearing male sitting up in bed, NAD but cold/wanting a warm blanket, intermittent confusion today but pleasant/cooperative. slight increase in abdominal distension but no overt tenderness HEENT: head atraumatic, normocephalic, mm slightly dry, trachea midline, HARD OF HEARING (aides in place\, one broken) Resp; diminished in the bases, no overt wheezing, occasional cough (none today) but no rales, on room air CV: RRR, +HARSH systolic murmur c/w valve, edema to LE MUCH IMPROVED w/ zuly hose in place but do note edema to thighs/buttocks, sacral wound stable GI: +BS, +ascites , +distension but no overt tenderness/guarding or rebound MSK/Neuro: nonfocal but generalized weakness, follows commands as able Psych: alert to person, knows in hosptial but not alert to year/month at this time. Skin: sacrum w/ excoriations,, pressure sore to superior aspect, chair w/ waffle cushion in place Results & Data Results & Data Vital Signs (Past 12 Hours) Vital Signs Temp Pulse Resp BP Pulse Ox O2 Del Method 06/21/24 06:17 36.5 C 79 18 144/71 H 97 Room Air 06/20/24 22:14 88 28 H 95 Room Air 06/20/24 21:50 Room Air Laboratory Results 06/21/24 09:03 06/21/24 09:03 TB 1.1 AST 41 ALT 40 ALP 133 Albumin 3.1 INR 1.3 PG Care Time/CCT Total # of Minutes Spent Total Time Spent with Patient: Total time spent is greater than 50% in coordination of care (as documented) at patient's floor/unit and/or counseling patient: Coding Level of Care Code 78099 SUB INP/OBS CARE 3/50MIN Diagnoses Acute kidney injury N17.9 Acute metabolic encephalopathy G93.41 CHF (congestive heart failure) I50.9 Radiation proctitis K62.7 Adrenal insufficiency E27.40 Stage III pressure sore L89.93
--- NOTE | 2024-06-21 09:15 | Gastroenterology Progress Note ---
Date of Service June 21, 2024 Assessment & Plan (1) Radiation proctitis: Plan: Anesthesia would prefer that Flex sig is pushed back to tomorrow given patient is going for dialysis today. - will plan to perform flex sig tomorrow. Admission and Anticipated Discharge Date Admission Date: May 18, 2024 Supervising Physician Co-Signing Physician Notes I personally saw and examined the patient. I have reviewed the chart and agree with the documentation provided by the FOOD SCIENCE TECHNICIAN including discussion about the a ssessment, treatment and plan. Flex sig tomorrow. Pt agrees. Subjective Patient is to have dialysis today. Patient was also set up to have flex sig done today. Anesthesia would prefer the procedure be moved to tomorrow on a day where he is not receiving dialysis. no further rectal bleeding per patient. no other concerns. Physical Exam Constitutional: WD/WN, vitals as above Respiratory: normal respiratory effort, lungs clear to auscultation Cardiovascular: Rate/Rhythm: regular rate and regular rhythm Gastrointestinal (Abdomen): normal bowel sounds, soft, nontender, no hepatosplenomegaly Psychiatric: Orientation: alert and oriented x 3 Results & Data Results & Data Vital Signs (Past 12 Hours) Vital Signs Temp Pulse Resp BP Pulse Ox O2 Del Method 06/21/24 06:17 97.7 F 79 18 144/71 H 97 Room Air 06/20/24 22:14 88 28 H 95 Room Air 06/20/24 21:50 Room Air Coding Level of Care Code 24874 SUB INP/OBS CARE 125MIN Diagnoses Radiation proctitis K62.7
[2024-06-21] MEDS: HYDROCORTISONE 10 MG TAB PO SCH ×2 (09:37→17:29)
[2024-06-21 09:38] LABS: Hemoglobin 10.4 g/dl (14.0-18.0); Mean Corpuscular Hemoglobin 30.4 pg (25.0-34.0); Mean Corpuscular Hgb Conc 31.5 g/dL (32.0-36.0); Mean Corpuscular Volume 96.5 fL (80.0-100.0); Mean Platelet Volume 10.1 fL (9.4-12.4); Platelet Count 112 K/uL (130-400); RDW Coefficient of Variation 20.9 % (11.5-14.5); RDW Standard Deviation 71.8 fL (36.4-46.3); Red Blood Count 3.42 M/uL (4.70-6.10); White Blood Count 7.29 K/ul (4.8-10.8)
[2024-06-21 09:57] LABS: Albumin Level 3.1 gm/dl (3.4-5.0); BUN Creatinine Ratio 16.8 (10-20); Bilirubin,Total 1.1 mg/dl (0.2-1.0); Calcium 8.9 mg/dl (8.6-10.3); Potassium 4.8 mmol/L (3.5-5.1); Total Protein 6.1 gm/dl (6.0-8.3)
[2024-06-21 10:01] LABS: INR 1.3 (0.9-1.1); Prothrombin Time 13.9 Seconds (9.0-12.0)
--- NOTE | 2024-06-21 13:43 | Anesthesiology Consultation ---
Date of Service June 21, 2024 Assessment & Plan Chart Review Chart Review: Acceptable Risk for Surgery, Patient NOT seen in Pre Admission Testing and order entry clerk initiated Consults Requested none Proposed Anesthesia Anesthesia Type: MAC History Surgery Operation Date: 06/22/24 16:30 Proposed Procedures p Flexible Sigmoidoscopy Guadalupe Butcher MD Height/Weight Height: 5 ft 9 in Weight: 76.8 kg Allergies Allergy/AdvReac Type Severity Reaction Status Date / Time plasma protein fraction Allergy Severe FROZEN Verified 05/18/24 19:42 PLASMA-- DEVELOPED HIVES Medications Home Medications Medication Instructions Recorded Confirmed Last Taken cholecalciferol (vitamin D3) 50 50 mcg PO QPM 10/07/22 05/18/24 2 Weeks Ago mcg (2,000 unit) capsule ~02/14/24 clonazepam 0.5 mg tablet 0.5 mg PO DAILY PRN Anxiety 10/07/22 05/18/24 12/26/23 hydrocortisone acetate 1 % topical 1 applic topical BID PRN Skin 10/07/22 05/18/24 12/09/23 cream Irritation sertraline 100 mg tablet 100 mg PO HS 11/25/22 05/18/24 05/17/24 tamsulosin 0.4 mg capsule 0.8 mg PO QPM 11/25/22 05/18/24 05/17/24 cyanocobalamin (vitamin B-12) 1,000 mcg PO DAILY 08/31/23 05/18/24 2 Weeks Ago 1,000 mcg tablet (Vitamin B-12) ~02/14/24 levothyroxine 75 mcg tablet 75 mcg PO QAM 08/31/23 05/18/24 05/18/24 (Synthroid) lactulose 10 gram/15 mL oral syrup 30 g PO BID 01/22/24 05/18/24 05/18/24 ondansetron 4 mg disintegrating 4 mg PO Q6H PRN Nausea And Vomiting 02/28/24 05/18/24 Unknown tablet bumetanide 1 mg tablet 1 mg PO .3X WEEK 05/15/24 05/18/24 05/17/24 cefdinir 300 mg capsule 300 mg PO BID #14 caps 05/15/24 05/18/24 05/18/24 hydroxyzine HCl 10 mg tablet 10 mg PO BID PRN Itching 05/15/24 05/18/24 Unknown lansoprazole 30 mg capsule,delayed 30 mg PO BID 05/15/24 05/18/24 05/18/24 release quetiapine 25 mg tablet 25 mg PO QAM 05/15/24 05/18/24 05/18/24 quetiapine 50 mg tablet 50 mg PO HS 05/15/24 05/18/24 05/17/24 metoprolol tartrate 25 mg tablet 25 mg PO BID 05/18/24 05/18/24 05/18/24 rifaximin 550 mg tablet (Xifaxan) 550 mg PO BID 05/18/24 05/18/24 05/18/24 Active Medications Generic Name Dose Route Start Last Admin Trade Name Freq PRN Reason Stop Dose Admin Acetaminophen 650 mg 05/18/24 22:16 06/20/24 21:51 Acetaminophen 325 Mg Tab PO 07/16/24 23:59 650 mg Q4H PRN Administration pain/fever Albuterol 3 ml 06/13/24 09:58 06/20/24 22:14 Albut/Ipratrop 3mg/0.5mg Neb 3 Ml Vial NEB 07/13/24 09:56 3 ml Q4 PRN Administration Shortness Of Breath Or Wheezing Protocol Benzonatate 100 mg 05/30/24 21:00 06/21/24 09:40 Benzonatate 100 Mg Capsule PO 06/29/24 20:59 100 mg TID DANIEL Administration Hydrocortisone 25 mg 06/15/24 10:30 06/19/24 20:00 Hydrocortisone Acetate 25 Mg Supp VT 07/15/24 10:29 Not Given BID DANIEL Hydrocortisone 15 mg 06/21/24 09:00 06/21/24 09:37 Hydrocortisone 10 Mg Tab PO 07/21/24 08:59 15 mg QAM DANIEL Administration Lactobacillus Acidophilus 1,250 mg 06/17/24 09:00 06/21/24 09:37 Advanced Probiotic 625 Mg Capsule PO 07/17/24 08:59 1,250 mg DAILY DANIEL Administration Lactulose 30 gm 06/02/24 21:00 06/21/24 09:37 Lactulose Syrup 30 Gm/45 Ml Udp PO 07/16/24 20:59 30 gm BID DANIEL Administration Levothyroxine Sodium 75 mcg 05/19/24 06:30 06/21/24 06:23 Levothyroxine Sodium 75 Mcg Tablet PO 07/16/24 11:08 75 mcg DAILYBB DANIEL Administration Melatonin 6 mg 06/01/24 21:00 06/20/24 21:51 Melatonin 3 Mg Tab PO 07/16/24 20:59 6 mg HS DANIEL Administration Midodrine 10 mg 05/23/24 12:00 06/21/24 12:08 Midodrine Hcl 10 Mg Tab PO 07/16/24 11:59 Not Given TID@0800,1200,1700 DANIEL Ondansetron HCl 4 mg 05/18/24 22:16 05/26/24 18:10 Ondansetron Inj 2 Mg/Ml 2 Ml Vial IV 07/16/24 23:59 4 mg Q6H PRN Administration Nausea Pantoprazole Sodium 40 mg 05/19/24 09:00 06/21/24 09:38 Pantoprazole 40 Mg Tab PO 07/16/24 11:08 40 mg BID DANIEL Administration Petrolatum 1 appln 06/17/24 21:00 06/21/24 09:38 Butt Paste (Zinc Oxide 16%) 171 Appln/57 Gm Jar EXT 07/17/24 20:59 1 appln BID DANIEL Administration Rifaximin 550 mg 05/19/24 09:00 06/21/24 09:38 Rifaximin 550 Mg Tablet PO 07/16/24 08:59 550 mg BID DANIEL Administration Sertraline HCl 100 mg 05/19/24 21:00 06/20/24 21:52 Sertraline Hcl 100 Mg Tablet PO 07/16/24 11:09 100 mg HS DANIEL Administration Tamsulosin HCl 0.8 mg 05/19/24 21:00 06/18/24 21:24 Tamsulosin Hcl 0.4 Mg Cap PO 07/16/24 11:09 0.8 mg QPM DANIEL Administration Past Medical History Medical History Non-ST elevated myocardial infarction (non-STEMI) Acute kidney injury superimposed on CKD Gross hematuria Chronic kidney disease Hypothyroidism Hx of aortic aneurysm ascending aortic aneurysm s/p dissection 05/2019 and subsequent repair of aortic root (28mm Gelweave graft) Failure to thrive in adult admission [facility] 08/31/23-09/12/23. pt's states that he has improved slightly since d/c (he has also since had an admission to [facility] since that time per ; unknown dx) Thrombocytopenia Prostate CA XRT 2020; Rezum 12/05/22 Dementia pt had significant confusion during 09/2023 admission [facility]; states that he is 'much better' at home. she also notes increased confusion after General Anesthesia GERD (gastroesophageal reflux disease) Portal hypertension Diabetes type 2, controlled metformin d/c during [facility] admission 2/2 hypoglycemia (pt has been having GI issues and has not been eating normal diet) Cirrhosis follows with GI Anemia pt's reports ongoing rectal bleeding (GI is aware) since XRT for prostate Ca; pt takes iron supplement; recent iron infusions and procrit injections (02/12/24 and will have another on 02/19/24) Generalized weakness uses cane to ambulate Urinary tract infection recurrent; follows with urology Nausea & vomiting current sx; following with GI CHF (congestive heart failure) follows with [facility] Osteoarthritis Anxiety Hypertension meds reduced during 09/2023 [facility] admission 2/2 hypotension Suspected sleep apnea unaware History of COVID-19 x2 ; 10/2022 most recent (pt was asymptomatic); no ongoing sx Past Family History Family History Mother Diabetes Hypertension Father Diabetes Other No family history of adverse response to anesthesia Past Surgical History Surgical History History of endoscopy capsule endoscopy History of flexible sigmoidoscopy History of colonoscopy History of cholecystectomy History of appendectomy History of prostate surgery multiple; most recent Rezu 12/05/22: MAC without issue History of aortic aneurysm repair 05/2021 in [facility] Follows with [facility] Cardiology Social History Smoking Status: Never smoker Do You Dip or Chew Tobacco: No Hx Alcohol Use: No Hx Substance Use: No substance use type: does not use Physical Exam Vital Signs Last Vital Signs Temp 36.5 C 06/21/24 12:00 Pulse 76 06/21/24 13:00 Resp 18 06/21/24 06:17 BP 135/75 06/21/24 13:00 Pulse Ox 97 06/21/24 06:17 O2 Del Method Room Air 12/16/24 08:00 O2 Flow Rate 0 06/14/24 11:16 FiO2 21 06/01/24 11:35 Testing Laboratory Results 06/21/24 09:03 06/21/24 09:03 PT 13.9 Seconds (9.0-12.0) H 06/21/24 09:03 INR 1.3 (0.9-1.1) H 06/21/24 09:03 APTT 28 Seconds (21-31) 05/18/24 16:24 Urine Color Kalpana 05/30/24 14:24 Urine Appearance Turbid (Clear) A 05/30/24 14:24 Urine pH 5.5 (4.5-7.5) 05/30/24 14:24 Ur Specific Henderson 1.025 (1.000-1.030) 05/30/24 14:24 Urine Protein 3+ (Negative) H 05/30/24 14:24 Urine Glucose (UA) Negative (Negative) 05/30/24 14:24 Urine Ketones 1+ (Negative) H 05/30/24 14:24 Urine Nitrite Negative (Negative) 05/30/24 14:24 Ur Leukocyte Esterase 3+ (Negative) H 05/30/24 14:24 Urine WBC (Auto) >50 /hpf (0-5) H 05/23/24 12:40 Urine RBC (Auto) 11-20 /hpf (0-2) H 05/23/24 12:40 U Hyaline Cast (Auto) >20 /lpf (0-2) H 05/23/24 12:40 U Epithel Cells (Auto) 3-5 /hpf (0-2) H 05/23/24 12:40 Urine Bacteria (Auto) 4+ (None Seen) H 05/23/24 12:40 Urine RBC >20 /hpf (0-2) H 05/30/24 14:24 Urine WBC >50 /hpf (0-5) H 05/30/24 14:24 Ur Epithelial Cells 0-2 /hpf (0-2) 05/30/24 14:24 Blood Type O Negative 06/17/24 09:49 Antibody Screen NEGATIVE 06/17/24 09:49 05/30/24 14:24 Urine Culture - Final Urine,Indwelling Cath Enterococcus faecium VRE Shelbi albicans/dubliniensis 05/18/24 16:29 Aerobic Blood Culture - Final Blood No growth in Aerobic bottle after 5 days. Anaerobic Blood Culture - Final No growth in Anaerobic bottle after 5 days. 05/18/24 16:24 Aerobic Blood Culture - Final Blood No growth in Aerobic bottle after 5 days. Anaerobic Blood Culture - Final No growth in Anaerobic bottle after 5 days. 05/18/24 16:30 Urine Culture - Final Urine,Indwelling Cath No growth - less than 1,000 colonies/mL. Electrocardiogram Date: 05/18/24 Findings: + NSR @ (with 1 degree A-V block @ 73 bpm) and + MD (Possible old anterolateral infarct) Chest X-Ray Date: 06/11/24 XR chest 1V portable CLINICAL HISTORY: R pleural effusion/decreased BS COMPARISON STUDY: Chest radiograph and chest CT June 03, 2024. FINDINGS: Dual lumen right internal jugular central venous catheter is in place. There are median sternotomy wires. Cardiomegaly is unchanged. Moderate right and small left pleural effusions are noted. Interstitial thickening persists. Bilateral airspace opacities are again noted. There is no pneumothorax. IMPRESSION: 1. Cardiomegaly with persistent pulmonary edema. 2. Moderate right and small left pleural effusions. Associated bibasilar opacities favor atelectasis although pneumonia could appear similar. Echocardiogram Date: 02/29/24 EF: 55-60 Other Findings: + atrial enlargement (mod atrial dilation B/L), + RVH (moderate dilation) and + diastolic dysfunction (Class III) Valvular Disease: no no significant valvular disease ([place] Ao Valve)
[2024-06-21 16:51] LABS: Appearance Urine Cloudy (Clear); Bacteria Urine Automated 4+ (None Seen); Bilirubin Urine Negative (Negative); Blood Urine 2+ (Negative); Color Urine Yellow; Epithelial Cell Urine Auto 0-2 /hpf (0-2); Glucose Urine UA Negative (Negative); Ketones Urine Negative (Negative); Leukocyte Esterase Urine 3+ (Negative); Nitrite Urine Negative (Negative); Protein Urine 2+ (Negative); Specific Gravity Urine 1.013 (1.000-1.030); Urobilinogen Urine Negative (Negative); WBC Urine Automated >50 /hpf (0-5); pH Urine 5.5 (4.5-7.5)
[2024-06-21] MEDS ORDERED: DAPTOmycin 275 MG in SYRINGE 0 ML IV SCH (17:00)
--- NOTE | 2024-06-21 17:00 | Communication Note ---
Date of Service: June 21, 2024 FLomax held last evening, increased abd distension/ammonia wnl and slight alteration of mentation compared to day prior. Asked nursing to bladder scan, reported >600cc in bladder. Duran placed and UA obtained which appears infected and given prior urine cx enterococcus/treatment with Daptomycin will start empirically and monitor final cx/sensitivities. Duran remaining in place for now/flomax on hold. Underwent HD today and was able to pull off 2L. BP remaining stable per chart review 115/76 with reduction in hydrocortisone dosing as well and will continue lower dose for now.
[2024-06-21] MEDS: DAPTOmycin 275 MG in SYRINGE 0 ML IV SCH (17:58)
[2024-06-22] MEDS: SOD PHOSPHATE/SOD BIPHOSPHATE ENEMA 132 ML BTL PR ONE (05:02)
[2024-06-22 07:52] LABS: Hematocrit (blood only) 30.5 % (42.0-52.0); Hemoglobin 9.9 g/dl (14.0-18.0); Mean Corpuscular Hemoglobin 31.1 pg (25.0-34.0); Mean Corpuscular Hgb Conc 32.5 g/dL (32.0-36.0); Mean Corpuscular Volume 95.9 fL (80.0-100.0); Platelet Count 85 K/uL (130-400); RDW Standard Deviation 72.5 fL (36.4-46.3); Red Blood Count 3.18 M/uL (4.70-6.10)
[2024-06-22 08:11] LABS: Albumin Level 2.8 gm/dl (3.4-5.0); BUN Creatinine Ratio 15.3 (10-20); Calcium 8.4 mg/dl (8.6-10.3); Creatinine Clr Calc Pharmacy 19.8 ml/min; Globulin 2.9 gm/dl (2.5-4.0); Magnesium 1.9 mg/dl (1.7-2.4); Potassium 3.9 mmol/L (3.5-5.1); Total Protein 5.7 gm/dl (6.0-8.3)
--- NOTE | 2024-06-22 09:42 | History & Physical Bridge Note ---
Date of Service June 22, 2024 History & Physical Bridge Note I have examined the patient, reviewed the History & Physical and in the interval since the performance of the History & Physical I have noted the following changes of clinical significance: no changes noted. Patient is more awake today. he tells me that he received his enema this morning. He has not noted further bleeding. no sob, chest pain, nausea, vomiting, acid reflux. - will plan for Flex sig for today. Supervising Physician Co-Signing Physician Notes I personally saw and examined the patient. I have reviewed the chart and agree with the documentation provided by the LOFTER including discussion about the assessment, treatment and plan. proceed with flex sig.
--- NOTE | 2024-06-22 12:16 | Nephrology Progress Note ---
Date of Service June 22, 2024 Assessment & Plan (1) Acute kidney injury: (2) Anemia: (3) Generalized weakness: Plan 79-year-old male with h/o stage 4 CKD with baseline creatinine 2.0 mg/dl dating back to at least 08/30. He was hospitalized recently at [facility] for hepatorenal syndrome and required initiation of HD but stopped ~ 1 month ago, still has a R IJ TCC in place. He was admitted on 05/18/2024 for evaluation of gross hematuria, mental status changes, INR 13 and creatinine 2.0. Renal ultrasound negative for hydronephrosis. Kidney function continued to worsen with oliguria and no improvement in mental status and he was restarted on HD on 05/27/24 for oliguric VINICIUS. He remains dialysis dependent for last almost a month, possibly reaching end-stage. Continue on maintenance hemodialysis, currently blood pressure , electrolyte, volume status acceptable. --dialysis tomorrow as MWF schedule, cr continues to rise in between HD, no clear sign of renal recovery, --Dose medications for eGFR less than 10 --Waiting on Flexible sigmoidoscopy. Admission and Anticipated Discharge Date Admission Date: May 18, 2024 Subjective Papito was seen and evaluated this morning. He denied any symptoms. Blood pressure well-controlled. Volume status acceptable. Electrolyte acceptable. Review of Systems Review of Systems: Detailed review of system was done and denied any symptoms. Physical Exam Constitutional: WD/WN, vitals as above + ill appearing; no acute distress Eyes: + anicteric sclerae Respiratory: Auscultation: lungs clear to auscultation bilaterally Cardiovascular: RRR, no murmur, no edema Rate/Rhythm: regular rate and regular rhythm Heart Sounds: normal S1 and normal S2 Extremities: no edema Skin: + turgor decreased and + skin atrophy; n o ulcers Neurologic: moves all extremities; not confused Results & Data Vital Signs (Past 12 Hours) Vital Signs Temp Pulse Resp BP Pulse Ox O2 Del Method 06/22/24 07:50 Room Air 06/22/24 07:03 36.5 C 85 16 136/73 95 Room Air PG Care Time/CCT Total # of Minutes Spent Total Time Spent with Patient: Total time spent is greater than 50% in coordination of care (as documented) at patient's floor/unit and/or counseling patient: Coding Level of Care Code 51561 SUB INP/OBS CARE MIN Diagnoses Acute kidney injury N17.9 Anemia D64.9 Anemia type: unspecified type Generalized weakness R53.1 (2) Anemia Anemia type: unspecified type Qualified Code(s): D64.9 - Anemia, unspecified
--- NOTE | 2024-06-22 12:19 | Hospitalist Progress Note ---
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 Radiation proctitis noted with oozing on contact or air. APC done but patient had ulceration still present from last APC and was oozing on arrival at flex sig - Hold all anticoagulation for now - Soften stools - Continues on PPI BID (2) Urinary tract infection due to Enterococcus: Plan: UA checked due to worsened mental status - Duran catheter placed due to urinary retention. Flomax on hold due to hypotension, but since he is taking midodrine, no reason to resume - Previous urine culture with enterococcus faecium VRE - Urine culture preliminarily growing enterococcus faecium - Continue daptomycin and ceftriaxone until urine culture sensitivities finalize (3) Acute kidney injury: Plan: Presented with creatinine of 2 at time of admission, baseline creatinine <2 - Was hospitalized for nearly a month at [facility] in fall 2023 and was started on HD during the hospitalization. Per records, had hepatorenal syndrome while in [facility] - Has intermittently required HD this admission - Nephrology following -- HD treatments have been reduced to 2x/week (M,F) - MELD Na = 23, very poor prognosis - Continue midodrine 10 mg TID for associated hypotension with hepatorenal syndrome (4) CHF (congestive heart failure): Plan: Chronic HFpEF, s/p AVR but not on anticoagulation due to cirrhosis/coagulopathy and h/o GIB chronically - Echo 02/29/2024 -- EF 50 to 55%, moderate dilation of RV, LA, RA, mechanical aortic valve in place, trace aortic regurgitation, severe tricuspid regurgitation, diastolic dysfunction grade 3 - Metoprolol and Bumex on HOLD due to hypotension and VINICIUS - Continue HD for volume management as above. 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 Daughter reports patient had steroids while in [place] - Cosyntropin stim test this admission -- Did not pass. Did not stim to >18. Baseline cortisol was low at 3 - Continue to wean steroids -- Initially on dexamethasone and transitioned to hydrocortisone 15mg/5mg -- BPs stable (6) Stage III pressure sore: Plan: Stage III sacral wound, suspect secondary to extended period supine in bed - Butt paste ordered - Encouraged to get out of bed to both help wound and prevent worsening weakness/immobilization/etc. - Wound care consulted, waffle cushion. Frequent turn/reposition - Continue to monitor (7) Acute metabolic encephalopathy: Plan: Ongoing, waxing/waning - Likely multifactorial cause: toxic effects from seroquel and benzos (both stopped on 05/12), acidosis and uremia, rhinovirus infection and probable bacterial pneumonia; - MRI brain negative - Continue delirium precautions - Continue treating ongoing infections - Continue lactulose to prevent elevated ammonia - Supportive care, frequent orientation encouraged with wake/sleep schedules. Monitor for depression Plan Started ceftriaxone VTE PPx: TEDs CODE STATUS: DNR/DNI Admission and Anticipated Discharge Date Admission Date: May 18, 2024 Supervising Physician Co-Signing Physician Notes ROBERT Supervision Note: I did not personally see or examine the patient today, but I verified all saenz points of ROBERT Maynard's assessment and plan with the following exceptions/additions: None Subjective Patient seen and evaluated at bedside. He reports feeling well. He denies any abdominal pain, nausea, lightheadedness, dizziness. We discussed that he is to have flex sig today. No additional complaints or concerns at this time. Physical Exam Physical Exam: General: No acute distress, nondiaphoretic, frail elderly male. Very hard of hearing. Skin: Scattered small bruising on arms. Permcath right upper chest wall. Peripheral edema much improved. Sacral wound stable. Cardiac: Regular rate and rhythm. Harsh mechanical valve sound. Pulm: Diminished breath sounds at bases R>L but otherwise clear to auscultation. No respiratory distress. 95% on room air. Abdominal: Soft, nontender. Distended. No guarding/rebound. Bowel sounds present. Neuro: A&O x2 (person, place). No focal neurological deficits. Results & Data Results & Data Vital Signs (Past 12 Hours) Vital Signs Temp Pulse Resp BP Pulse Ox O2 Del Method 06/22/24 07:50 Room Air 06/22/24 07:03 97.7 F 85 16 136/73 95 Room Air Laboratory Results Reviewed CBC Reviewed BMP Reviewed urine culture PG Care Time/CCT Total # of Minutes Spent Total Time Spent with Patient: Total time spent is greater than 50% in coordination of care (as documented) at patient's floor/unit and/or counseling patient: Coding Level of Care Code 33936 SUB INP/OBS CARE 2/35MIN Diagnoses Radiation proctitis K62.7 Urinary tract infection due to Enterococcus N39.0; B95.2 Acute kidney injury N17.9 CHF (congestive heart failure) I50.9 Adrenal insufficiency E27.40 Stage III pressure sore L89.93 Acute metabolic encephalopathy G93.41
--- NOTE | 2024-06-22 13:16 | GI REPORT ---
[facility] Patient: IGLESIA VILLARREAL : 1945 Sex at : Male Age: 79 Years Procedure: Flexible Sigmoidoscopy Date: 06/22/2024 Attending Physician: Felix Butcher MD Referring MD: Referred Self; Maryanne Middleton Md Indications: - Rectal hemorrhage Medications: - See the Anesthesia note for documentation of the administered medications Complications: - No immediate complications. Estimated Blood Loss: - Estimated blood loss was minimal. Procedure: - Prior to the procedure, a History and Physical was performed, and patient medications and allergies were reviewed. The patient's tolerance of previous anesthesia was also reviewed. The risks and benefits of the procedure and the sedation options and risks were discussed with the patient. All questions were answered, and informed consent was obtained. Prior Anticoagulants: The patient has taken Eliquis (apixaban), last dose was 2 days prior to procedure. ASA Grade Assessment: III - A patient with severe systemic disease. After reviewing the risks and benefits, the patient was deemed in satisfactory condition to undergo the procedure. - The egd scope was introduced through the anus and advanced to the descending colon. - The flexible sigmoidoscopy was accomplished without difficulty. - The patient tolerated the procedure well. - The quality of the bowel preparation was adequate. Findings: - Multiple small patchy angioectasias with bleeding on contact were found in the distal rectum. Coagulation for hemostasis using argon plasma at 1 liter/minute and 30 escalona was successful. - Radiation proctitis noted with oozing on contact or air. APC done but patient had ulceration still present from last apc and was oozing on arrival at Flex sig. Hold all anticoag for now. Impression: - Multiple colonic angioectasias. Treated with argon plasma coagulation (APC). - Radiation proctitis noted with oozing on contact or air. APC done but patient had ulceration still present from last apc and was oozing on arrival at Flex sig. Hold all anticoag for now. - No specimens collected. Recommendation: - he has been APC'd with prior apc ulceration already present. I worry about bleeding with any hard bm. Soften stools and supportive care. - if significant bleeding then ddavp Procedure Code(s): - 61702, Sigmoidoscopy, flexible; with control of bleeding, any method Diagnosis Code(s): - K62.5, Hemorrhage of anus and rectum - K55.20, Angiodysplasia of colon without hemorrhage CPT(R) - 2023 copyright [employer]. All Rights Reserved. The CPT codes, CCI edits and ICD codes generated are intended as suggestions and were generated based on input data. These codes are preliminary and upon bale piler review may be revised to meet current compliance and payer requirements. The provider is responsible for the final determination of appropriate codes, and modifiers. Felix Butcher MD This document has been electronically signed. Note Initiated:06/22/2024 Note Completed:06/22/2024 1:16 PM \\[email or web address]\[email or web address]\[id number]
[2024-06-22] MEDS: cefTRIAXone SODIUM 2,000 MG/50 ML BAG IV SCH (14:09)
--- NOTE | 2024-06-22 14:21 | Anesthesiology Progress Note ---
Date of Service June 22, 2024 Anesthesia Post Procedure Vital Signs Vital Signs: Temp Pulse Pulse Pulse Pulse Resp BP 06/22/24 14:04 36.6 C 80 17 06/22/24 13:40 78 20 06/22/24 13:23 78 19 06/22/24 13:08 81 18 06/22/24 12:37 36.7 C 84 16 06/22/24 07:50 06/22/24 07:03 36.5 C 85 16 06/21/24 19:03 36.5 C 79 15 06/21/24 15:05 36.6 C 74 06/21/24 15:00 79 131/61 06/21/24 14:30 80 113/63 BP BP Pulse Ox O2 Del Method O2 Flow Rate 06/22/24 14:04 126/65 97 Room Air 06/22/24 13:40 121/73 96 Room Air 06/22/24 13:23 118/64 96 Room Air 06/22/24 13:08 122/71 98 Oxymask 3 06/22/24 12:37 138/71 96 Room Air 06/22/24 07:50 Room Air 06/22/24 07:03 136/73 95 Room Air 06/21/24 19:03 125/65 97 Room Air 06/21/24 15:05 115/76 06/21/24 15:00 06/21/24 14:30 Pain Intensity Medial Buttock: Pain Intensity: 5 Transfer of Care Handoff Completed per policy Notes Mental Status: alert / awake / arousable and participated in evaluation Patient Amnestic to Procedure: Yes Nausea / Vomiting: adequately controlled Pain: adequately controlled Airway Patency, RR, SpO2: stable & adequate BP & HR: stable & adequate Hydration State: stable & adequate Anesthetic Complications: no major complications apparent
[2024-06-22] MEDS: PROPOFOL IV EMULSION 10 MG/ML 20 ML VIAL IV ONE (17:20)
[2024-06-22] MEDS: LIDOCAINE 2% 2 ML VIAL/AMP(20MG/ML) INFIL ONE (17:20)
[2024-06-23 05:07] LABS: Hematocrit (blood only) 32.9 % (42.0-52.0); Hemoglobin 10.6 g/dl (14.0-18.0); Mean Corpuscular Hemoglobin 31.5 pg (25.0-34.0); Mean Corpuscular Hgb Conc 32.2 g/dL (32.0-36.0); Mean Corpuscular Volume 97.6 fL (80.0-100.0); Mean Platelet Volume 9.9 fL (9.4-12.4); Platelet Count 82 K/uL (130-400); RDW Coefficient of Variation 20.9 % (11.5-14.5); RDW Standard Deviation 74.3 fL (36.4-46.3); Red Blood Count 3.37 M/uL (4.70-6.10); White Blood Count 6.96 K/ul (4.8-10.8)
[2024-06-23 05:23] LABS: BUN Creatinine Ratio 14.3 (10-20); Calcium 8.4 mg/dl (8.6-10.3); Creatinine Clr Calc Pharmacy 16.5 ml/min; Potassium 4.1 mmol/L (3.5-5.1)
--- NOTE | 2024-06-23 12:37 | Hospitalist Progress Note ---
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 Radiation proctitis noted with oozing on contact or air. APC done but patient had ulceration still present from last APC and was oozing on arrival at flex sig - Hold all anticoagulation for now - Soften stools - Continues on PPI BID (2) Urinary tract infection due to Enterococcus: Plan: UA checked due to worsened mental status; no leukocytosis, afebrile - Duran catheter placed due to urinary retention. Flomax on hold due to hypotension, but since he is taking midodrine, no reason to resume - Previous urine culture with enterococcus faecium VRE - Urine culture preliminarily growing enterococcus faecium - Discussed case with pharmacy/ID regulatory services consultant who felt strongly that patient has Enterococcus colonization and recommends to discontinue antibiotics - Antibiotics discontinued 06/23 (3) Acute kidney injury: Plan: Presented with creatinine of 2 at time of admission, baseline creatinine <2 - Was hospitalized for nearly a month at [facility] in fall 2023 and was started on HD during the hospitalization. Per records, had hepatorenal syndrome while in [facility] - Has intermittently required HD this admission - Nephrology following -- HD treatments have been adjusted to 3x/week (MWF) - MELD Na = 23, very poor prognosis - Continue midodrine 10 mg TID for associated hypotension with hepatorenal syndrome (4) CHF (congestive heart failure): Plan: Chronic HFpEF, s/p AVR but not on anticoagulation due to cirrhosis/coagulopathy and h/o GIB chronically - Echo 02/29/2024 -- EF 50 to 55%, moderate dilation of RV, LA, RA, mechanical aortic valve in place, trace aortic regurgitation, severe tricuspid regurgitation, diastolic dysfunction grade 3 - Metoprolol and Bumex on HOLD due to hypotension and VINICIUS - Continue HD for volume management as above. 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 Daughter reports patient had steroids while in [place] - Cosyntropin stim test this admission -- Did not pass. Did not stim to >18. Baseline cortisol was low at 3 - Continue to wean steroids -- Initially on dexamethasone and transitioned to hydrocortisone 15mg/5mg -- BPs stable (6) Stage III pressure sore: Plan: Stage III sacral wound, suspect secondary to extended period supine in bed - Butt paste ordered - Encouraged to get out of bed to both help wound and prevent worsening weakness/immobilization/etc. - Wound care consulted, waffle cushion. Frequent turn/reposition - Continue to monitor (7) Acute metabolic encephalopathy: Plan: Ongoing, waxing/waning - Likely multifactorial cause: toxic effects from seroquel and benzos (both stopped on 05/12), acidosis and uremia, rhinovirus infection and probable bacterial pneumonia; - MRI brain negative - Continue delirium precautions - Continue treating ongoing infections - Continue lactulose to prevent elevated ammonia - Supportive care, frequent orientation encouraged with wake/sleep schedules. Monitor for depression Plan Discussed case with pharmacy Discontinued antibiotics VTE PPx: TEDs CODE STATUS: DNR/DNI Dispo: [facility] when medically stable Admission and Anticipated Discharge Date Admission Date: May 18, 2024 Supervising Physician Co-Signing Physician Notes ROBERT Supervision Note: I did not personally see or examine the patient today, but I verified all saenz points of ROBERT Maynard's assessment and plan with the following exceptions/additions: None Subjective Patient seen and evaluated at bedside while eating lunch. He reports feeling very tired after his dialysis treatment today. He also notes that his buttock is sore. He has not had any blood with BMs today. He does continue to have liquid stools. Physical Exam Physical Exam: General: No acute distress, nondiaphoretic, frail elderly male. Very hard of hearing. Skin: Scattered small bruising on arms. Permcath right upper chest wall. Peripheral edema much improved. Sacral wound stable. Cardiac: Regular rate and rhythm. Harsh mechanical valve sound. Pulm: Diminished breath sounds at bases R>L but otherwise clear to auscultation. No respiratory distress. 98% on room air. Abdominal: Soft, nontender, nondistended. No guarding/rebound. Bowel sounds present. Neuro: A&O x2 (person, place). No focal neurological deficits. Results & Data Results & Data Vital Signs (Past 12 Hours) Vital Signs Temp Pulse Pulse Pulse Resp BP BP 06/23/24 12:18 97.7 F 84 125/68 06/23/24 12:00 71 124/61 06/23/24 11:30 80 127/70 06/23/24 11:00 79 136/74 06/23/24 10:30 81 137/77 06/23/24 10:00 83 143/81 H 06/23/24 09:30 87 128/96 06/23/24 09:12 97.7 F 88 06/23/24 07:50 06/23/24 07:30 97.7 F 90 18 161/86 H Pulse Ox O2 Del Method 06/23/24 12:18 06/23/24 12:00 06/23/24 11:30 06/23/24 11:00 06/23/24 10:30 06/23/24 10:00 06/23/24 09:30 06/23/24 09:12 06/23/24 07:50 Room Air 06/23/24 07:30 98 Room Air Laboratory Results Reviewed CBC Reviewed BMP Reviewed urine culture PG Care Time/CCT Total # of Minutes Spent Total Time Spent with Patient: Total time spent is greater than 50% in coordination of care (as documented) at patient's floor/unit and/or counseling patient: Coding Level of Care Code 79421 SUB INP/OBS CARE 3/50MIN Diagnoses Radiation proctitis K62.7 Urinary tract infection due to Enterococcus N39.0; B95.2 Acute kidney injury N17.9 CHF (congestive heart failure) I50.9 Adrenal insufficiency E27.40 Stage III pressure sore L89.93 Acute metabolic encephalopathy G93.41
--- NOTE | 2024-06-23 14:37 | Nephrology Progress Note ---
Date of Service June 23, 2024 Assessment & Plan (1) Acute kidney injury: (2) Anemia: (3) Generalized weakness: (4) End stage kidney disease: Plan 79-year-old male with h/o ESKD and h/o stage 4 CKD with baseline creatinine 2.0 mg/dl dating back to at least 08/30. He was hospitalized recently at [facility] for hepatorenal syndrome and required initiation of HD but stopped ~ 1 month ago, still has a R IJ TCC in place. He was admitted on 05/18/2024 for evaluation of gross hematuria, mental status changes, INR 13 and creatinine 2.0. Renal ultrasound negative for hydronephrosis. Kidney function continued to worsen with oliguria and no improvement in mental status and he was restarted on HD on 05/27/24 for oliguric VINICIUS. He remains dialysis dependent for last almost a month, no sign of renal recovery, noted to have sharp rise in creatinine in between dialysis. Continue on maintenance hemodialysis, currently blood pressure , electrolyte, volume status acceptable. --Continue on intermittent dialysis MWF schedule, cr continues to rise in be tween HD, no clear sign of renal recovery and possibly reached end-stage., --Dose medications for eGFR less than 10 --Left arm nephrology precaution for possible AV fistula in future. Admission and Anticipated Discharge Date Admission Date: May 18, 2024 Subjective Papito was seen and evaluated during dialysis this morning. Has been tolerating dialysis, blood pressure acceptable. He denied any symptoms. Volume status acceptable. Electrolyte acceptable. Review of Systems Review of Systems: Detailed review of system was done and denied any symptoms. Physical Exam Constitutional: WD/WN, vitals as above + ill appearing; no acute distress Eyes: + anicteric sclerae Respiratory: Auscultation: lungs clear to auscultation bilaterally Cardiovascular: RRR, no murmur, no edema Skin: + turgor decreased and + skin atrophy; n o ulcers Neurologic: moves all extremities Results & Data Vital Signs (Past 12 Hours) Vital Signs Temp Pulse Pulse Pulse Resp BP BP 06/23/24 12:18 36.5 C 84 125/68 06/23/24 12:00 71 124/61 06/23/24 11:30 80 127/70 06/23/24 11:00 79 136/74 06/23/24 10:30 81 137/77 06/23/24 10:00 83 143/81 H 06/23/24 09:30 87 128/96 06/23/24 09:12 36.5 C 88 06/23/24 07:50 06/23/24 07:30 36.5 C 90 18 161/86 H Pulse Ox O2 Del Method 06/23/24 12:18 06/23/24 12:00 06/23/24 11:30 06/23/24 11:00 06/23/24 10:30 06/23/24 10:00 06/23/24 09:30 06/23/24 09:12 06/23/24 07:50 Room Air 06/23/24 07:30 98 Room Air PG Care Time/CCT Total # of Minutes Spent Total Time Spent with Patient: Total time spent is greater than 50% in coordination of care (as documented) at patient's floor/unit and/or counseling patient: Coding Level of Care Code 49372 SUB INP/OBS CARE 2/35MIN Diagnoses Acute kidney injury N17.9 Anemia D64.9 Anemia type: unspecified type Generalized weakness R53.1 End stage kidney disease N18.6 (2) Anemia Anemia type: unspecified type Qualified Code(s): D64.9 - Anemia, unspecified
[2024-06-24 08:23] LABS: Hematocrit (blood only) 31.8 % (42.0-52.0); Hemoglobin 10.1 g/dl (14.0-18.0); Mean Corpuscular Hemoglobin 31.2 pg (25.0-34.0); Mean Corpuscular Hgb Conc 31.8 g/dL (32.0-36.0); Mean Corpuscular Volume 98.1 fL (80.0-100.0); Mean Platelet Volume 10.5 fL (9.4-12.4); Platelet Count 55 K/uL (130-400); RDW Coefficient of Variation 20.6 % (11.5-14.5); RDW Standard Deviation 72.6 fL (36.4-46.3); Red Blood Count 3.24 M/uL (4.70-6.10); White Blood Count 6.17 K/ul (4.8-10.8)
[2024-06-24 08:32] LABS: BUN Creatinine Ratio 12.8 (10-20); Calcium 8.3 mg/dl (8.6-10.3); Potassium 3.8 mmol/L (3.5-5.1)
--- NOTE | 2024-06-24 10:22 | Nephrology Progress Note ---
Date of Service June 24, 2024 Assessment & Plan (1) End stage kidney disease: (2) Acute kidney injury: (3) Anemia: (4) Generalized weakness: Plan 79-year-old male with h/o ESKD and h/o stage 4 CKD with baseline creatinine 2.0 mg/dl dating back to at least 08/30. He was hospitalized recently at [facility] for hepatorenal syndrome and required initiation of HD but stopped ~ 1 month ago, still has a R IJ TCC in place. He was admitted on 05/18/2024 for evaluation of gross hematuria, mental status changes, INR 13 and creatinine 2.0. Renal ultrasound negative for hydronephrosis. Kidney function continued to worsen with oliguria and no improvement in mental status and he was restarted on HD on 05/27/24 for oliguric VINICIUS. He remains dialysis dependent for last almost a month, no sign of renal recovery, noted to have sharp rise in creatinine in between dialysis. Continue on maintenance hemodialysis, currently blood pressure , electrolyte, volume status acceptable. --Continue on intermittent dialysis MWF schedule, cr continues to rise in be tween HD, no clear sign of renal recovery and possibly reached end-stage. --Dose medications for eGFR less than 10 --Left arm nephrology precaution for possible AV fistula in future. --waiting on Rehab discharge. Admission and Anticipated Discharge Date Admission Date: May 18, 2024 Subjective Papito was seen and evaluated this morning. Blood pressure acceptable. He denied any symptoms but remains pleasantly confused. Volume status acceptable. Electrolyte acceptable. Review of Systems Review of Systems: Detailed review of system was done and denied any symptoms. Physical Exam Constitutional: WD/WN, vitals as above + ill appearing; no acute distress Eyes: + anicteric sclerae Respiratory: Auscultation: lungs clear to auscultation bilaterally Cardiovascular: RRR, no murmur, no edema Gastrointestinal (Abdomen): Percussion/Palpation: abdomen soft; abdomen nontender Skin: + turgor decreased and + skin atrophy; n o ulcers Neurologic: moves all extremities Results & Data Vital Signs (Past 12 Hours) Vital Signs Temp Pulse Resp BP Pulse Ox O2 Del Method 06/24/24 07:08 36.6 C 84 18 136/71 96 Room Air PG Care Time/CCT Total # of Minutes Spent Total Time Spent with Patient: Total time spent is greater than 50% in coordination of care (as documented) at patient's floor/unit and/or counseling patient: Coding Level of Care Code 94446 SUB INP/OBS CARE 235MIN Diagnoses End stage kidney disease N18.6 Acute kidney injury N17.9 Anemia D64.9 Anemia type: unspecified type Generalized weakness R53.1 (3) Anemia Anemia type: unspecified type Qualified Code(s): D64.9 - Anemia, unspecified
--- NOTE | 2024-06-24 10:55 | Gastroenterology Progress Note ---
Date of Service June 24, 2024 Assessment & Plan (1) Radiation proctitis: Plan: Patient with a history of radiation proctitis s/p Flex sig with APC. anticoagulation has been held. I will discuss with Dr. Butcher further in regards to anticoagulation. further recommendations to follow, see MD camara. Admission and Anticipated Discharge Date Admission Date: May 18, 2024 Supervising Physician Co-Signing Physician Notes I personally saw and examined the patient. I have reviewed the chart and agree with the documentation provided by the [employer] INSULATION HELPER including discussion about the assessment, treatment and plan. Briefly, no further bleeding but does have some rectal pain from APC. He is passing a soft bowel movement. The issue is that he nearly blacked out in March in [place] when on anticoagulation. He is high risk for rebleeding. The rectum is friable and ulcerated radiation proctitis and every time air insufflation or APC was applied to another site would slowly ooze or rebleed. Having said that, he has a [employer] mechanical valve for an aortic valve replacement. Per his daughter he has not been on anticoagulation since March. I think we should get cardiology on board so family is aware of the risks and benefits of holding anticoagulation and his risk for stroke. Subjective we were asked to come back to see patient to advise on anticoagulation. he underwent Flex sig as per below. patient drowsy and offers no complaints. spoke with nursing, no reported bleeding. 06/24 hgb 10.1 Flex sig 06/22 - Multiple small patchy angioectasias with bleeding on contact were found in the distal rectum. Coagulation for hemostasis using argon plasma at 1 liter/minute and 30 escalona was successful. Radiation proctitis noted with oozing on contact or air. APC done but patient had ulceration still present from last apc and was oozing on arrival at Flex sig. Review of Systems Review of Systems: Unobtainable due to cognitive status Physical Exam Constitutional: WD/WN, vitals as above Respiratory: normal respiratory effort, lungs clear to auscultation Cardiovascular: Rate/Rhythm: regular rate and regular rhythm Gastrointestinal (Abdomen): normal bowel sounds, soft, nontender, no hepatosplenomegaly Psychiatric: drowsy. Results & Data Results & Data Vital Signs (Past 12 Hours) Vital Signs Temp Pulse Resp BP Pulse Ox O2 Del Method 06/24/24 07:08 97.9 F 84 18 136/71 96 Room Air Coding Level of Care Code 44590 SUB INP/OBS CARE 07/31MIN Diagnoses Radiation proctitis K62.7
[2024-06-24 11:30] LABS: Hep B Surface Ag with confirm Negative (Negative)
[2024-06-24 11:42] LABS: Hepatitis B Surface Ab Quant < 3.00 mIU/mL (>or=10mIU/mL Immune); Hepatitis B Surface Antibody Non-Immune
--- NOTE | 2024-06-24 12:58 | Hospitalist Progress Note ---
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 Radiation proctitis noted with oozing on contact or air. APC done but patient had ulceration still present from last APC and was oozing on arrival at flex sig - GI consulted > Patient is at high risk for rebleeding as his rectum is friable with ulcer ated radiation proctitis > Recommends involving cardiology to discuss risks and benefits of holding anticoagulation with patient given his mechanical aortic valve replacement - Cardiology consulted, appreciate assistance - Hold all anticoagulation for now - Soften stools - Continues on PPI BID (2) Urinary tract infection due to Enterococcus: Plan: UA checked due to worsened mental status; no leukocytosis, afebrile - Duran catheter placed due to urinary retention; attempted voiding trial 06/24 -- bladder scan if no UO >6 hours and replace Duran if indicated - Flomax on hold due to hypotension, but since he is taking midodrine, no reason to resume - Previous urine culture with enterococcus faecium VRE. Urine culture again grew enterococcus faecium. Discussed case with pharmacy/ID home performance consultant who felt strongly that patient has Enterococcus colonization and recommends to discontinue antibiotics - Antibiotics discontinued 06/23 (3) Acute kidney injury: Plan: Presented with creatinine of 2 at time of admission, baseline creatinine <2 - Was hospitalized for nearly a month at [facility] in fall 2023 and was started on HD during the hospitalization. Per records, had hepatorenal syndrome while in [facility] - Has intermittently required HD this admission - Nephrology following -- HD treatments have been adjusted to 3x/week (MWF) - MELD Na = 23, very poor prognosis - Continue midodrine 10 mg TID for associated hypotension with hepatorenal syndrome (4) CHF (congestive heart failure): Plan: Chronic HFpEF, s/p AVR but not on anticoagulation due to cirrhosis/coagulopathy and h/o GIB chronically - Echo 02/29/2024 -- EF 50 to 55%, moderate dilation of RV, LA, RA, mechanical aortic valve in place, trace aortic regurgitation, severe tricuspid regurgitation, diastolic dysfunction grade 3 - Metoprolol and Bumex on HOLD due to hypotension and VINICIUS - Continue HD for volume management as above. 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 Daughter reports patient had steroids while in [place] - Cosyntropin stim test this admission -- Did not pass. Did not stim to >18. Baseline cortisol was low at 3 - Continue to wean steroids -- Initially on dexamethasone and transitioned to hydrocortisone 15mg/5mg -- BPs stable (6) Stage III pressure sore: Plan: Stage III sacral wound, suspect secondary to extended period supine in bed - Butt paste ordered - Encouraged to get out of bed to both help wound and prevent worsening weakness/immobilization/etc. - Wound care consulted, ivelisse stephens. Frequent turn/reposition - Continue to monitor (7) Acute metabolic encephalopathy: Plan: Ongoing, waxing/waning - Likely multifactorial cause: toxic effects from seroquel and benzos (both stopped on 05/12), acidosis and uremia, rhinovirus infection and probable bacterial pneumonia; - MRI brain negative - Continue delirium precautions - Continue treating ongoing infections - Continue lactulose to prevent elevated ammonia - Supportive care, frequent orientation encouraged with wake/sleep schedules. Monitor for depression Plan Updated daughter at bedside Discussed discharge planning with case management Consulted cardiology VTE PPx: TEDs CODE STATUS: DNR/DNI [facility]po[facility] Admission and Anticipated Discharge Date Admission Date: May 18, 2024 Supervising Physician Co-Signing Physician Notes ROBERT Supervision Note: I did not personally see or examine the patient today, but I verified all saenz points of ROBERT Maynard's assessment and plan with the following exceptions/additions: None Subjective Patient seen and evaluated in bedside chair with his daughter present. His hearing aids are charging currently so full ROS was difficult. He states that he feels well and has no complaints at this time. I discussed updates regarding his medical care and SNF placements with his daughter. She would like to discuss this further with case management. No additional complaints or concerns at this time. Per RN, no further bleeding with BMs. Physical Exam Physical Exam: General: No acute distress, nondiaphoretic, frail elderly male. Very hard of hearing. Skin: Scattered small bruising on arms. Permcath right upper chest wall. Peripheral edema much improved. Sacral wound stable. Cardiac: Regular rate and rhythm. Harsh mechanical valve sound. Pulm: Diminished breath sounds at bases R>L but otherwise clear to auscultation. No respiratory distress. 96% on room air. Abdominal: Soft, nontender, nondistended. No guarding/rebound. Bowel sounds present. Neuro: A&O x2 (person, place). No focal neurological deficits. Results & Data Results & Data Vital Signs (Past 12 Hours) Vital Signs Temp Pulse Resp BP Pulse Ox O2 Del Method 06/24/24 07:08 97.9 F 84 18 136/71 96 Room Air Laboratory Results Reviewed CBC Reviewed BMP Reviewed hepatitis panel PG Care Time/CCT Total # of Minutes Spent Total Time Spent with Patient: Total time spent is greater than 50% in coordination of care (as documented) at patient's floor/unit and/or counseling patient: Coding Level of Care Code 12136 SUB INP/OBS CARE 3/50MIN Diagnoses Radiation proctitis K62.7 Urinary tract infection due to Enterococcus N39.0; B95.2 Acute kidney injury N17.9 CHF (congestive heart failure) I50.9 Adrenal insufficiency E27.40 Stage III pressure sore L89.93 Acute metabolic encephalopathy G93.41
[2024-06-25 09:56] LABS: Hematocrit (blood only) 32.2 % (42.0-52.0); Hemoglobin 10.2 g/dl (14.0-18.0); Mean Corpuscular Hemoglobin 31.2 pg (25.0-34.0); Mean Corpuscular Hgb Conc 31.7 g/dL (32.0-36.0); Mean Corpuscular Volume 98.5 fL (80.0-100.0); Platelet Count 56 K/uL (130-400); RDW Standard Deviation 72.6 fL (36.4-46.3); Red Blood Count 3.27 M/uL (4.70-6.10); White Blood Count 6.63 K/ul (4.8-10.8)
--- NOTE | 2024-06-25 10:12 | Nephrology Progress Note ---
Date of Service June 25, 2024 Assessment & Plan (1) End stage kidney disease: (2) Anemia: (3) Generalized weakness: Plan 79-year-old male with h/o ESKD and h/o stage 4 CKD with baseline creatinine 2.0 mg/dl dating back to at least 08/30. He was hospitalized recently at [facility] for hepatorenal syndrome and required initiation of HD but stopped ~ 1 month ago, still has a R IJ TCC in place. He was admitted on 05/18/2024 for evaluation of gross hematuria, mental status changes, INR 13 and creatinine 2.0. Renal ultrasound negative for hydronephrosis. Kidney function continued to worsen with oliguria and no improvement in mental status and he was restarted on HD on 05/27/24 for oliguric VINICIUS. He remains dialysis dependent for last almost a month, no sign of renal recovery, noted to have sharp rise in creatinine in between dialysis. Continue on maintenance hemodialysis, currently blood pressure , electrolyte, volume status acceptable. --Continue on intermittent dialysis MWF schedule --Dose medications for eGFR less than 10 --Left arm nephrology precaution for possible AV fistula in future. --waiting on [facility] facility discharge, possibly to [facility] and dialysis at [facility]. Admission and Anticipated Discharge Date Admission Date: May 18, 2024 Subjective Papito was seen and evaluated this morning while getting dialysis. Blood pressure acceptable. He denied any symptoms but remains somewhat confused. Volume status acceptable. Electrolyte acceptable. Review of Systems Review of Systems: Detailed review of system was done and denied any symptoms. Physical Exam Constitutional: WD/WN, vitals as above + ill appearing; no acute distress Eyes: + anicteric sclerae Respiratory: Auscultation: lungs clear to auscultation bilaterally Cardiovascular: RRR, no murmur, no edema Gastrointestinal (Abdomen): Percussion/Palpation: abdomen soft; abdomen nontender Skin: + turgor decreased and + skin atrophy; n o ulcers Neurologic: moves all extremities Results & Data Vital Signs (Past 12 Hours) Vital Signs Temp Pulse Pulse Resp BP BP Pulse Ox 06/25/24 08:26 36.7 C 80 14 146/76 H 96 06/25/24 07:15 36.9 C 90 18 140/82 95 O2 Del Method 06/25/24 08:26 Room Air 06/25/24 07:15 Room Air PG Care Time/CCT Total # of Minutes Spent Total Time Spent with Patient: Total time spent is greater than 50% in coordination of care (as documented) at patient's floor/unit and/or counseling patient: Coding Level of Care Code 81666 SUB INP/OBS CARE 2/35MIN Diagnoses End stage kidney disease N18.6 Anemia D64.9 Anemia type: unspecified type Generalized weakness R53.1 (2) Anemia Anemia type: unspecified type Qualified Code(s): D64.9 - Anemia, unspecified
[2024-06-25 10:30] LABS: Calcium 8.4 mg/dl (8.6-10.3); Potassium 4.1 mmol/L (3.5-5.1)
[2024-06-25 10:36] LABS: BUN Creatinine Ratio 14.1 (10-20); Creatinine Clr Calc Pharmacy 15.3 ml/min
--- NOTE | 2024-06-25 10:55 | Gastroenterology Progress Note ---
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 He is high risk for rebleeding given the degree of proctitis on examination. Trend H&H. Monitor and document stools. Appreciate cardiology evaluation. Recall GI as needed. I spent a total of 40 minutes on the date of service in review of patient's record, and previously obtained information in person and appropriate medical visit, discussion and education of plan, with patient and/or caregiver, placing orders for tests/referral/procedures as medically necessary and documentation of pertinent clinical information in patient's medical records for their visit today. Admission and Anticipated Discharge Date Admission Date: May 18, 2024 Supervising Physician Co-Signing Physician Notes I personally saw and examined the patient. I have reviewed the chart and agree with the documentation provided by the VOTATOR MACHINE OPERATOR including discussion about the assessment, treatment and plan. Briefly, no further bleeding since APC. This is very friable and ulcerated and likely will rebleed with anticoagulation. The daughter told me that he almost bled out in [place] 6 months ago and has not had anticoagulation since March. We will await cardiology input regarding his stroke risk. Otherwise he is doing okay keep his stools soft. GI really has no other further recommendations at this point. Subjective Pt was seen and evaluated, chart reviewed. Eating breakfast. Offers no concerns - feels like he may need to pass a stool shortly. Brown stool is documented Flex sig: Multiple colonic angioectasias. Treated with argon plasma coagulation (APC). - Radiation proctitis noted with oozing on contact or air. APC done but patient had ulceration still present from last apc and was oozing on arrival at [facility]. Hold all anticoag for now. - No specimens collected. Review of Systems Review of Systems: All other findings negative except as noted in HPI. Physical Exam Constitutional: WD/WN, vitals as above Gastrointestinal (Abdomen): Inspection/Auscultation: normal bowel sounds Percussion/Palpation: abdomen soft; abdomen nontender Skin: no rashes, warm and dry Results & Data Results & Data Vital Signs (Past 12 Hours) Vital Signs Temp Pulse Pulse Resp BP BP Pulse Ox 06/25/24 08:26 36.7 C 80 14 146/76 H 96 06/25/24 07:15 36.9 C 90 18 140/82 95 06/25/24 07:10 O2 Del Method 06/25/24 08:26 Room Air 06/25/24 07:15 Room Air 06/25/24 07:10 Room Air Laboratory Results 06/25/24 06/24/24 Range/Units 09:18 09:56 WBC 6.63 (4.8-10.8) K/ul RBC 3.27 L (4.70-6.10) M/uL Hgb 10.2 L (14.0-18.0) g/dl Hct 32.2 L (42.0-52.0) % MCV 98.5 (80.0-100.0) fL MCH 31.2 (25.0-34.0) pg MCHC 31.7 L (32.0-36.0) g/dL RDW Std Deviation 72.6 H (36.4-46.3) fL RDW Coeff of Nick 20.0 H (11.5-14.5) % Plt Count 56 L (130-400) K/uL MPV 11.0 (9.4-12.4) fL Sodium 140 (136-145) mmol/L Potassium 4.1 (3.5-5.1) mmol/L Chloride 102 (98-107) mmol/L Carbon Dioxide 28 (21-32) mmol/L Anion Gap 10 (3-11) BUN 56 H (6-23) mg/dl Creatinine 3.98 H D (0.6-1.4) mg/dl Est Cr Clr Drug Dosing 15.3 ml/min eGFR 14.68 BUN/Creatinine Ratio 14.1 (10-20) Glucose 101 H (70-99(Fasting)) mg/dl Calcium 8.4 L (8.6-10.3) mg/dl Ammonia 42.0 (18-72) umol/L Hep Bs Antigen Negative (Negative) Hep Bs Antibody Non-Immune Hep Bs Antibody, Quant < 3.00 (>or=10mIU/mL Immune) mIU/mL Hep B Core IgM Ab NON-REACTIVE (NON-REACTIVE) PG Care Time/CCT Total # of Minutes Spent Total Time Spent with Patient: Total time spent is greater than 50% in coordination of care (as documented) at patient's floor/unit and/or counseling patient: Coding Level of Care Code 05241 SUB INP/OBS CARE 235MIN Diagnoses Radiation proctitis K62.7
[2024-06-25] MEDS: EPOETIN ALFA 10,000 UNITS/ML VIAL IV ONE (11:44)
--- NOTE | 2024-06-25 16:07 | Hospitalist Progress Note ---
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 Radiation proctitis noted with oozing on contact or air. APC done but patient had ulceration still present from last APC and was oozing on arrival at flex sig - GI consulted > Patient is at high risk for rebleeding as his rectum is friable with ulce rated radiation proctitis > Recommends involving cardiology to discuss risks and benefits of holding anticoagulation with patient given his mechanical aortic valve replacement - Cardiology consulted, appreciate assistance - Hold all anticoagulation for now - Soften stools - Continues on PPI BID (2) Urinary tract infection due to Enterococcus: Plan: UA checked due to worsened mental status; no leukocytosis, afebrile - Duran catheter placed due to urinary retention; attempted voiding trial 06/24 and given patient is oliguric with HD treatments, will not replace Duran at this time - Flomax on hold due to hypotension, but since he is taking midodrine, no reason to resume - Previous urine culture with enterococcus faecium VRE. Urine culture again grew enterococcus faecium. Discussed case with pharmacy/ID design studio consultant who felt strongly that patient has Enterococcus colonization and recommends to discontinue antibiotics - Antibiotics discontinued 06/23 (3) Acute kidney injury: Plan: Presented with creatinine of 2 at time of admission, baseline creatinine <2 - Was hospitalized for nearly a month at [facility] in fall 2023 and was started on HD during the hospitalization. Per records, had hepatorenal syndrome while in [facility] - Has intermittently required HD this admission - Nephrology following -- HD treatments have been adjusted to 3x/week (MWF) - MELD Na = 23, very poor prognosis - Continue midodrine 10 mg TID for associated hypotension with hepatorenal syndrome (4) CHF (congestive heart failure): Plan: Chronic HFpEF, s/p AVR but not on anticoagulation due to cirrhosis/coagulopathy and h/o GIB chronically - Echo 02/29/2024 -- EF 50 to 55%, moderate dilation of RV, LA, RA, mechanical aortic valve in place, trace aortic regurgitation, severe tricuspid regurgitation, diastolic dysfunction grade 3 - Metoprolol and Bumex on HOLD due to hypotension and VINICIUS - Continue HD for volume management as above. 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 Daughter reports patient had steroids while in [place] - Cosyntropin stim test this admission -- Did not pass. Did not stim to >18. Baseline cortisol was low at 3 - Continue to wean steroids -- Initially on dexamethasone and transitioned to hydrocortisone 15mg/5mg -- BPs stable (6) Stage III pressure sore: Plan: Stage III sacral wound, suspect secondary to extended period supine in bed - Butt paste ordered - Encouraged to get out of bed to both help wound and prevent worsening weakness/immobilization/etc. - Wound care consulted, ivelisse stephens. Frequent turn/reposition - Continue to monitor (7) Acute metabolic encephalopathy: Plan: Ongoing, waxing/waning - Likely multifactorial cause: toxic effects from seroquel and benzos (both stopped on 05/12), acidosis and uremia, rhinovirus infection and probable bacterial pneumonia; - MRI brain negative - Continue delirium precautions - Continue treating ongoing infections - Continue lactulose to prevent elevated ammonia - Supportive care, frequent orientation encouraged with wake/sleep schedules. Monitor for depression Plan VTE PPx: TEDs CODE STATUS: DNR/DNI Dispo: Accepted at [facility] facility when medically stable / outpatient HD is set up Admission and Anticipated Discharge Date Admission Date: May 18, 2024 Supervising Physician Co-Signing Physician Notes chart reviewed and case d/w S Gross PAC; as above Subjective Patient seen and evaluated at bedside. He reports feeling tired after his hemodialysis treatment this morning. He denies any acute complaints or concerns at this time. Physical Exam Physical Exam: General: No acute distress, nondiaphoretic, frail elderly male. Very hard of hearing. Skin: Scattered small bruising on arms. Permcath right upper chest wall. Peripheral edema much improved. Sacral wound stable. Cardiac: Regular rate and rhythm. Harsh mechanical valve sound. Pulm: Diminished breath sounds at bases R>L but otherwise clear to auscultation. No respiratory distress. 99% on room air. Abdominal: Soft, nontender, nondistended. No guarding/rebound. Bowel sounds present. Neuro: A&O x2 (person, place). No focal neurological deficits. Results & Data Results & Data Vital Signs (Past 12 Hours) Vital Signs Temp Pulse Pulse Pulse Pulse Resp BP 06/25/24 15:08 97.7 F 78 18 06/25/24 13:20 97.3 F L 79 06/25/24 13:00 74 121/66 06/25/24 12:30 74 114/59 L 06/25/24 12:00 73 125/68 06/25/24 11:30 78 122/70 06/25/24 11:00 78 127/67 06/25/24 10:30 82 130/68 06/25/24 10:13 87 114/63 06/25/24 10:10 98.2 F 86 06/25/24 08:26 98.1 F 80 14 06/25/24 07:15 98.5 F 90 18 06/25/24 07:10 BP BP Pulse Ox O2 Del Method 06/25/24 15:08 142/67 H 99 Room Air 06/25/24 13:20 116/68 06/25/24 13:00 06/25/24 12:30 06/25/24 12:00 06/25/24 11:30 06/25/24 11:00 06/25/24 10:30 06/25/24 10:13 06/25/24 10:10 06/25/24 08:26 146/76 H 96 Room Air 06/25/24 07:15 140/82 95 Room Air 06/25/24 07:10 Room Air Laboratory Results Reviewed CBC Reviewed BMP/ammonia PG Care Time/CCT Total # of Minutes Spent Total Time Spent with Patient: Total time spent is greater than 50% in coordination of care (as documented) at patient's floor/unit and/or counseling patient: Coding Level of Care Code 58017 SUB INP/OBS CARE 2/35MIN Diagnoses Radiation proctitis K62.7 Urinary tract infection due to Enterococcus N39.0; B95.2 Acute kidney injury N17.9 CHF (congestive heart failure) I50.9 Adrenal insufficiency E27.40 Stage III pressure sore L89.93 Acute metabolic encephalopathy G93.41
--- NOTE | 2024-06-25 17:25 | Cardiology Consultation ---
Date of Consultation June 25, 2024 Assessment & Plan (1) Hx of aortic valve replacement, mechanical: (2) Hx of aortic aneurysm: (3) History of aortic aneurysm repair: Plan ASSESSMENT/PLAN: 1. Mechanical aortic valve: Anticoagulation therapy held due to recurrent GI bleeding from radiation proctitis and also in the setting of thrombocytopenia. GI has stated that he is likely to rebleed with anticoagulation therapy. Obviously this would increase stroke risk to be without chronic anticoagulation therapy but in the setting of ongoing GI bleeding with profound anemia earlier this hospital stay, would continue to hold anticoagulation for now. If in the future, his bleeding risk improves, would consider resuming anticoagulation therapy at that time. In the meantime, there may be some benefit to add antiplatelet therapy. If this is safe from a bleeding standpoint, consider antiplatelet therapy such as aspirin 81 mg daily. SBE prophylaxis for dental procedures. 2. Anticoagulation therapy: As above. 3. Thrombocytopenia: As per primary service. 4. Ascending aortic aneurysm s/p dissection and repair: Avoid strenuous lifting for which the Valsalva maneuver is required. Blood pressure management. Disposition: He should continue to follow with his usual outpatient claims service adjustor. Recommendation communicated with Dr. Helm of the primary hospitalist service. Please call on-call claims service adjustor with any further questions or concerns. Cardiology will sign off at this time. His daughter was called at the listed number within the chart, however there was no answer. Thank you for allowing me to participate in the care of your patient. Please call for any other questions or concerns. Sincerely, Jacobo Linares M.D. History of Present Illness Reason for Consultation: Anticoagulation recommendations. Requesting Physician: Fatuma Maynard PA-C Attending Physician: Bismark Helm DO History of Present Illness Mr. Jarquin is a very pleasant 79-year-old gentleman with a history significant for mechanical aortic valve ([place]), type 2 diabetes, heart failure with preserved EF, CKD on HD, tricuspid regurgitation, dementia, cirrhosis, anemia, hypertension,, prostate cancer, ascending aortic aneurysm with dissection in May 2019 and repair of aortic root (28 mm Gelweave graft). He follows cardiology in the [facility]. He has had the following studies/procedures: 1. [place] mechanical aortic valve replacement. 2. Aortic aneurysm repair 2018 for dissection. 3. Echo 02/29/2024 [facility]: LVEF 50-55%. Septal motion consistent with prior cardiac surgery. Moderately dilated right ventricle with reduced systolic function. Moderate biatrial dilation. Mechanical aortic valve (bileaflet/[place]). Trace AI. Moderate to severe MAC. Severe TR. He presented to the hospital due to confusion and weakness per HPI. He has been receiving intermittent dialysis with nephrology. He also has been having issues with anemia with a hemoglobin as low as 6.6 on 06/14/2024. He has been diagnosed with radiation proctitis and has been seen by GI who has stated that it is high risk for rebleed given the degree of proctitis. Anticoagulation therapy has been held for this reason. Unfortunately, patient is unable to provide any meaningful history, other than he denies chest pain, shortness of breath, palpitations, syncope, or near syncope. Attempts were made to call his daughter, although there was no answer on the listed phone number. History was obtained by reviewing records, and also discussing with Dr. Middleton on 06/24/2024. Review of systems: As above. Family history: Noncontributory. Social history: According to records, non-smoker. . Unaccompanied. Allergies Allergy/AdvReac Type Severity Reaction Status Date / Time plasma protein fraction Allergy Severe FROZEN Verified 05/18/24 19:42 PLASMA-- DEVELOPED HIVES Home Medications Medication Instructions Recorded Confirmed Type cholecalciferol (vitamin D3) 50 50 mcg PO QPM 10/07/22 05/18/24 History mcg (2,000 unit) capsule clonazepam 0.5 mg tablet 0.5 mg PO DAILY PRN Anxiety 10/07/22 05/18/24 History hydrocortisone acetate 1 % topical 1 applic topical BID PRN Skin 10/07/22 05/18/24 History cream Irritation sertraline 100 mg tablet 100 mg PO HS 11/25/22 05/18/24 History tamsulosin 0.4 mg capsule 0.8 mg PO QPM 11/25/22 05/18/24 History cyanocobalamin (vitamin B-12) 1,000 mcg PO DAILY 08/31/23 05/18/24 History 1,000 mcg tablet (Vitamin B-12) levothyroxine 75 mcg tablet 75 mcg PO QAM 08/31/23 05/18/24 History (Synthroid) lactulose 10 gram/15 mL oral syrup 30 g PO BID 01/22/24 05/18/24 History ondansetron 4 mg disintegrating 4 mg PO Q6H PRN Nausea And Vomiting 02/28/24 05/18/24 History tablet bumetanide 1 mg tablet 1 mg PO .3X WEEK 05/15/24 05/18/24 History cefdinir 300 mg capsule 300 mg PO BID #14 caps 05/15/24 05/18/24 Rx hydroxyzine HCl 10 mg tablet 10 mg PO BID PRN Itching 05/15/24 05/18/24 History lansoprazole 30 mg capsule,delayed 30 mg PO BID 05/15/24 05/18/24 History release quetiapine 25 mg tablet 25 mg PO QAM 05/15/24 05/18/24 History quetiapine 50 mg tablet 50 mg PO HS 05/15/24 05/18/24 History metoprolol tartrate 25 mg tablet 25 mg PO BID 05/18/24 05/18/24 History rifaximin 550 mg tablet (Xifaxan) 550 mg PO BID 05/18/24 05/18/24 History Problem List (Updated 06/23/24 @ 14:37 by Alisha Westbrook MD) End stage kidney disease Stage III pressure sore Hepatorenal syndrome Recurrent right pleural effusion Radiation proctitis Pneumonia Hypoxia Urinary tract infection due to Enterococcus Rhinovirus infection Palliative care by specialist Discussion about advance care planning held with family member Altered mental status Adrenal insufficiency Pancytopenia History of fractured vertebra Cervical fracture 11/18/21- medical management recommended, follows with physical therapy, "full ROM" per patient Acidosis Acute hepatic encephalopathy Muscle tone increased PSP (progressive supranuclear palsy) Acute metabolic encephalopathy Acute kidney injury Penile edema CRF (chronic renal failure) (Acute) Acute dehydration (Acute) Acute confusion (Acute) Hematuria (Acute) Anemia (Acute) Hypotension (Acute) Encephalopathy Chronic anticoagulation Anemia in chronic kidney disease (CKD) Rectal bleeding pt's reports ongoing rectal bleeding (GI is aware) since XRT for prostate Ca; pt takes iron supplement Hx of aortic valve replacement, mechanical 1989 Urethral stricture Urge incontinence Delirium Thrombocytopenia Hypothyroidism Failure to thrive in adult Pleural effusion (Acute) Anemia (Acute) Generalized weakness (Acute) Cirrhosis Diarrhea CHF (congestive heart failure) (Acute) S/P AVR Weakness Encounter for pre-operative examination Diabetes mellitus, type 2 NIDDM GERD (gastroesophageal reflux disease) Hx of prostatic malignancy Spring 2020 Treated with radiation treatments Hx of aortic aneurysm ascending aortic aneurysm s/p dissection 05/2019 and subsequent repair of aortic root (28mm Gelweave graft) Prostate cancer Patient History Medical History Non-ST elevated myocardial infarction (non-STEMI) Acute kidney injury superimposed on CKD Gross hematuria Chronic kidney disease Hypothyroidism Hx of aortic aneurysm ascending aortic aneurysm s/p dissection 05/2019 and subsequent repair of aortic root (28mm Gelweave graft) Failure to thrive in adult admission [facility] 08/31/23-09/12/23. pt's states that he has improved slightly since d/c (he has also since had an admission to [facility] since that time per ; unknown dx) Thrombocytopenia Prostate CA XRT 2020; Rezum 12/05/22 Dementia pt had significant confusion during 09/[address] [facility]; states that he is 'much better' at home. she also notes increased confusion after General Anesthesia GERD (gastroesophageal reflux disease) Portal hypertension Diabetes type 2, controlled metformin d/c during [facility] admission 2/2 hypoglycemia (pt has been having GI issues and has not been eating normal diet) Cirrhosis follows with GI Anemia pt's reports ongoing rectal bleeding (GI is aware) since XRT for prostate Ca; pt takes iron supplement; recent iron infusions and procrit injections (02/12/24 and will have another on 02/19/24) Generalized weakness uses cane to ambulate Urinary tract infection recurrent; follows with urology Nausea & vomiting current sx; following with GI CHF (congestive heart failure) follows with [facility] Osteoarthritis Anxiety Hypertension meds reduced during 09/2023 [facility] admission 2/2 hypotension Suspected sleep apnea unaware History of COVID-19 x2 ; 10/2022 most recent (pt was asymptomatic); no ongoing sx Surgical History History of endoscopy capsule endoscopy History of flexible sigmoidoscopy History of colonoscopy History of cholecystectomy History of appendectomy History of prostate surgery multiple; most recent Rezu 12/05/22: MAC without issue History of aortic aneurysm repair 05/2021 in [facility] Follows with [facility] Cardiology Family History Mother Diabetes Hypertension Father Diabetes Other No family history of adverse response to anesthesia Social History Smoking Status: Never smoker Second Hand Exposure: No; Do You Dip or Chew Tobacco: No; Hx Alcohol Use: No Hx Substance Use: No Preferred Language: Tamazight Communication Ability: Impaired Track Service Person Required: No Beliefs That Will Affect Care: None marital status: Current Living Situation: Spouse current occupational status: retired Other Information That Helps Us Care for You: No Feels Safe at Home: Yes Safety Concerns: Feels Safe At This Time Assistive Devices: Walker and Wheelchair Physical Exam Physical Exam: Gen.: No acute distress. Alert and oriented to self only. HEENT: Anicteric sclera. Neck: No JVD. Bilateral carotid bruit versus radiation of cardiac murmur. Normal carotid upstrokes bilaterally. Cardiac: Regular. Normal S1. Forrest S2. 2/6 systolic ejection murmur. Pulmonary: Clear to auscultation bilaterally without wheezes, rales, or rhonchi. Abdomen: Soft, nontender, nondistended, with normoactive bowel sounds. No bruits noted. Extremities: 2+ radial pulses bilaterally. 2+ posterior tibialis pulses bilaterally. 1+ bilateral lower extremity pitting edema, mostly in the dependent areas. No cyanosis. Results & Data Vital Signs (Past 12 Hours) Vital Signs Temp Pulse Pulse Pulse Pulse Resp BP 06/25/24 15:08 36.5 C 78 18 06/25/24 13:20 36.3 C L 79 06/25/24 13:00 74 121/66 06/25/24 12:30 74 114/59 L 06/25/24 12:00 73 125/68 06/25/24 11:30 78 122/70 06/25/24 11:00 78 127/67 06/25/24 10:30 82 130/68 06/25/24 10:13 87 114/63 06/25/24 10:10 36.8 C 86 06/25/24 08:26 36.7 C 80 14 06/25/24 07:15 36.9 C 90 18 06/25/24 07:10 BP BP Pulse Ox O2 Del Method 06/25/24 15:08 142/67 H 99 Room Air 06/25/24 13:20 116/68 06/25/24 13:00 06/25/24 12:30 06/25/24 12:00 06/25/24 11:30 06/25/24 11:00 06/25/24 10:30 06/25/24 10:13 06/25/24 10:10 06/25/24 08:26 146/76 H 96 Room Air 06/25/24 07:15 140/82 95 Room Air 06/25/24 07:10 Room Air Laboratory Results Laboratory Results - last 24 hr 06/24/24 06/25/24 09:56 09:18 WBC 6.63 RBC 3.27 L Hgb 10.2 L Hct 32.2 L MCV 98.5 MCH 31.2 MCHC 31.7 L RDW Std Deviation 72.6 H RDW Coeff of Nick 20.0 H Plt Count 56 L MPV 11.0 Sodium 140 Potassium 4.1 Chloride 102 Carbon Dioxide 28 Anion Gap 10 BUN 56 H Creatinine 3.98 H D Est Cr Clr Drug Dosing 15.3 eGFR 14.68 BUN/Creatinine Ratio 14.1 Glucose 101 H Calcium 8.4 L Ammonia 42.0 Hep B Core IgM Ab NON-REACTIVE Diagnostic Findings History and physical report reviewed. GI notes reviewed. Hospital notes reviewed. Sigmoidoscopy report reviewed from 06/22/2024: Multiple small patchy angiectasis with bleeding on contact in the distal rectum. Coagulation for hemostasis using argon plasma was successful. Radiation proctitis noted with oozing on contact or air. APC done but patient had ulceration still present from last APC on arrival. Multiple colonic angioectasias. ECG personally reviewed 05/18/2024: Sinus rhythm first-degree AV block. 73 bpm. Possible anterior infarct. Labs reviewed and notable for abnormal renal function, normal potassium, thrombocytopenia with platelets as low as 55 on 06/24/2024, hemoglobin is low 6.6 on 06/14/2024, but now up to 10.2. LDL cholesterol is excellent, mildly elevated AST. Venous Doppler report from 06/17/2024 reviewed and notable for no DVT. CT chest 06/03/2024: Moderate to large right and small left layering pleural effusions. Extensive groundglass infiltrates in both lungs. Medications Administered Current Inpatient Medications Acetaminophen (Acetaminophen 325 Mg Tab) 650 mg PO Q4H PRN PRN Reason: pain/fever Stop: 07/16/24 23:59 Last Admin: 06/25/24 20:28 Dose: 650 mg Albuterol (Albut/Ipratrop 3mg/0.5mg Neb 3 Ml Vial) 3 ml NEB Q4 PRN; Protocol PRN Reason: Shortness Of Breath Or Wheezing Stop: 07/13/24 09:56 Last Admin: 06/20/24 22:14 Dose: 3 ml Benzonatate (Benzonatate 100 Mg Capsule) 100 mg PO TID DANIEL Stop: 06/29/24 20:59 Last Admin: 06/25/24 20:40 Dose: 100 mg Dextrose (Dextrose 50% 50 Ml Syringe) 25 - 50 ml IV UD PRN; Protocol PRN Reason: Hypoglycemia Protocol Stop: 07/16/24 11:07 Glucagon (Glucagon For Inj 1 Mg Vial) 1 mg SQ UD PRN; Protocol PRN Reason: Hypoglycemia Protocol Stop: 07/16/24 11:08 Glucose (Glucose 40% Gel 15 Gm Tube) 15 - 30 gm PO UD PRN; Protocol PRN Reason: Hypoglycemia Protocol Stop: 07/16/24 11:07 Glucose (Glucose 10 Tab/Tube) 4 - 8 tab PO UD PRN; Protocol PRN Reason: Hypoglycemia Protocol Stop: 07/16/24 11:08 Hydrocortisone (Hydrocortisone 10 Mg Tab) 15 mg PO QAM DANIEL Stop: 07/21/24 08:59 Last Admin: 06/25/24 07:27 Dose: 15 mg Hydrocortisone (Hydrocortisone 10 Mg Tab) 5 mg PO 1600 DANIEL Stop: 07/21/24 15:59 Last Admin: 06/25/24 16:13 Dose: 5 mg Lactobacillus Acidophilus (Advanced Probiotic 625 Mg Capsule) 1,250 mg PO DAILY DANIEL Stop: 07/17/24 08:59 Last Admin: 06/25/24 07:27 Dose: 1,250 mg Lactulose (Lactulose Syrup 30 Gm/45 Ml Udp) 30 gm PO BID DANIEL Stop: 07/16/24 20:59 Last Admin: 06/25/24 20:40 Dose: 30 gm Levothyroxine Sodium (Levothyroxine Sodium 75 Mcg Tablet) 75 mcg PO DAILYBB DANIEL Stop: 07/16/24 11:08 Last Admin: 06/25/24 05:28 Dose: 75 mcg Melatonin (Melatonin 3 Mg Tab) 6 mg PO HS DANIEL Stop: 07/16/24 20:59 Last Admin: 06/25/24 20:40 Dose: 6 mg Miconazole Nitrate (Miconazole Nitrate Powder 85 Gm) 1 appln EXT PRN PRN PRN Reason: Affected Skin Folds Stop: 07/08/24 18:21 Midodrine (Midodrine Hcl 10 Mg Tab) 10 mg PO TID@0800,1200,1700 DANIEL Stop: 07/16/24 11:59 Last Admin: 06/25/24 16:13 Dose: 10 mg Miscellaneous (Carbohydrates For Hypoglycemia ) 15 - 30 gm PO UD PRN PRN Reason: Hypoglycemia Protocol Stop: 07/16/24 11:08 Ondansetron HCl (Ondansetron Inj 2 Mg/Ml 2 Ml Vial) 4 mg IV Q6H PRN PRN Reason: Nausea Stop: 07/16/24 23:59 Last Admin: 05/26/24 18:10 Dose: 4 mg Pantoprazole Sodium (Pantoprazole 40 Mg Tab) 40 mg PO BID [facility] Stop: 07/16/24 11:08 Last Admin: 06/25/24 20:40 Dose: 40 mg Petrolatum (Butt Paste (Zinc Oxide 16%) 171 Appln/57 Gm Jar) 1 appln EXT BID DANIEL Stop: 07/17/24 20:59 Last Admin: 06/25/24 20:40 Dose: 1 appln Polyethylene Glycol (Polyethylene (Miralax) 17 Gm Pack) 17 gm PO DAILY PRN PRN Reason: Constipation Stop: 07/16/24 23:59 Rifaximin (Rifaximin 550 Mg Tablet) 550 mg PO BID [facility] Stop: 07/16/24 08:59 Last Admin: 06/25/24 20:40 Dose: 550 mg Sertraline HCl (Sertraline Hcl 100 Mg Tablet) 100 mg PO HS [facility] Stop: 07/16/24 11:09 Last Admin: 06/25/24 20:40 Dose: 100 mg Tamsulosin HCl (Tamsulosin Hcl 0.4 Mg Cap) 0.8 mg PO QPM DANIEL Stop: 07/16/24 11:09 Last Admin: 06/18/24 21:24 Dose: 0.8 mg PG Care Time/CCT Total # of Minutes Spent Total Time Spent with Patient: Total time spent is greater than 50% in coordination of care (as documented) at patient's floor/unit and/or counseling patient: Coding Level of Care Code 46757 INT INP/OBS CARE 2MIN Diagnoses Hx of aortic valve replacement, mechanical Z95.2 Hx of aortic aneurysm Z86.79 History of aortic aneurysm repair Z98.890; Z86.79
[2024-06-26 06:48] LABS: Hematocrit (blood only) 32.1 % (42.0-52.0); Hemoglobin 10.2 g/dl (14.0-18.0); Mean Corpuscular Hgb Conc 31.8 g/dL (32.0-36.0); Mean Corpuscular Volume 97.6 fL (80.0-100.0); Mean Platelet Volume 11.2 fL (9.4-12.4); Platelet Count 58 K/uL (130-400); RDW Coefficient of Variation 20.3 % (11.5-14.5); Red Blood Count 3.29 M/uL (4.70-6.10); White Blood Count 5.69 K/ul (4.8-10.8)
[2024-06-26 07:06] LABS: BUN Creatinine Ratio 14.5 (10-20); Calcium 8.4 mg/dl (8.6-10.3); Potassium 3.9 mmol/L (3.5-5.1)
--- NOTE | 2024-06-26 11:11 | Nephrology Progress Note ---
Date of Service June 26, 2024 Assessment & Plan (1) End stage kidney disease: (2) Anemia: (3) Generalized weakness: Plan 79-year-old male with h/o ESKD and h/o stage 4 CKD with baseline creatinine 2.0 mg/dl dating back to at least 08/30. He was hospitalized recently at [facility] for hepatorenal syndrome and required initiation of HD but stopped ~ 1 month ago, still has a R IJ TCC in place. He was admitted on 05/18/2024 for evaluation of gross hematuria, mental status changes, INR 13 and creatinine 2.0. Renal ultrasound negative for hydronephrosis. Kidney function continued to worsen with oliguria and no improvement in mental status and he was restarted on HD on 05/27/24 for oliguric VINICIUS. He remains dialysis dependent for last almost a month, no sign of renal recovery, noted to have sharp rise in creatinine in between dialysis. Continue on maintenance hemodialysis, currently blood pressure , electrolyte, volume status acceptable. --Continue on intermittent dialysis MWF schedule, will have dialysis tomorrow as change schedule instead of Friday. --Dose medications for eGFR less than 10 --Left arm nephrology precaution for possible AV fistula in future. --waiting on [facility] discharge, possibly to [facility] and dialysis at [facility]. Admission and Anticipated Discharge Date Admission Date: May 18, 2024 Subjective Papito was seen and evaluated this morning. Blood pressure acceptable. He denied any symptoms and reports overall feeling well. Volume status acceptable. Electrolyte acceptable. Review of Systems Review of Systems: Detailed review of system was done and denied any symptoms. Physical Exam Constitutional: WD/WN, vitals as above + ill appearing; no acute distress Eyes: + anicteric sclerae Respiratory: Auscultation: lungs clear to auscultation bilaterally Cardiovascular: RRR, no murmur, no edema Skin: + turgor decreased and + skin atrophy; n o ulcers Neurologic: moves all extremities Results & Data Vital Signs (Past 12 Hours) Vital Signs Temp Pulse Resp BP Pulse Ox O2 Del Method 06/26/24 07:11 36.3 C L 80 17 131/62 97 Room Air PG Care Time/CCT Total # of Minutes Spent Total Time Spent with Patient: Total time spent is greater than 50% in coordination of care (as documented) at patient's floor/unit and/or counseling patient: Coding Level of Care Code 13016 SUB INP/OBS CARE Diagnoses End stage kidney disease N18.6 Anemia D64.9 Anemia type: unspecified type Generalized weakness R53.1 (2) Anemia Anemia type: unspecified type Qualified Code(s): D64.9 - Anemia, unspecified
--- NOTE | 2024-06-26 17:19 | Hospitalist Progress Note ---
Date of Service June 26, 2024 Assessment & Plan (1) Acute kidney injury: Plan: Presented with creatinine of 2 at time of admission, baseline creatinine <2 Was hospitalized for nearly a month at [facility] in fall 2023 and was started on HD during the hospitalization. Per records, had hepatorenal syndrome while in [facility] Has intermittently required HD this admission Nephrology following for intermittent hemodialysis -currently Friday MELD Na = 23 presently (06/20), very poor prognosis s/p HD on 06/18 for 2.2L, prior limited 2nd to hypotension issues on 06/16 Has received total 5u PRBC while inpatient (05/23/2024, 06/14/2024, 06/14/2024, 06/17/2024, 06/18/2024,) -- Less bleeding with bowel movements, ongoing streaking however hx variceal bleeding/APC in past. GI consulted/flex sig for nonHD day Hgb stable/continued improvement to 10.2 on 06/26/2024 Hydrocortisone 20mg/10mg continued for adrenal insufficiency however BPs STABLE over past 24 hours and DECREASE to 15mg/5mg and monitor on midodrine. Prior bumex/entreso stopped. Flomax placed to HOLD given limited UOP and had been continued on 0.8mg HS daily Nephrology currently following for HD. Currently Friday. Continues on midodrine 10mg TID for BP support Case management currently involved in placement. 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 Repeat ammonia 06/25/2024 at 42 umol/L. Lactulose as needed Supportive care, frequent orientation encouraged with wake/sleep schedules. Monitor for depression. 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 Hgb stable/improved but has received 5u PRBC during inpatient stay (along with dose of vitamin K) and prior reported variceal bleeding and reached back to GI as above Continues on PPI BID, cdiff negative Hgb stable/improved as above Monitor CBC GI with flex sig 06/22/2024: Findings: - Multiple small patchy angioectasias with bleeding on contact were found in the distal rectum. Coagulation for hemostasis using argon plasma at 1 liter/minute and 30 escalona was successful. - Radiation proctitis noted with oozing on contact or air. APC done but patient had ulceration still present from last apc and was oozing on arrival at Flex [facility]. Continue to hold all anticoag for now. 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 Daughter reports patient had steroids while in [place] cosyntropin stim test this admission -- did not pass did not stim to >18 baseline cortisol was low at 3 initially on dexamethasone and transitioned to hydrocortisone 20mg/10mg Was prior trying to wean but ongoing issues w/ bleeding/BP and had been continued with PRBC/HD support and FLOMAX NOW ON HOLD w/ improvement -> attempting to wean hydrocortisone as above and changing to 15mg/5mg for today (06/21) (6) Stage III pressure sore: Plan: noted on exam, had been in bed most of week prior when previously up out of bed to chair the prior week. Had discussed w/ daughter this past week and patient wanting to get up/out of bed and discussed w/ nursing as unclear why had not been done/lactulose not given for his cirrhosis and then w/ elevated ammonia lactulose resumed for elevated ammonia (TO CONTINUE), cdiff negative. butt paste ordered and encouraged nursing to get out of bed (has been up to chair for multiple meals this weekend, continue to encourage nursing to continue such) to prevent worsening weakness/immobilization/etc. Venous doppler negative for DVT, zuly hose for LE edema w/ imrpovement Wound care consulted, waffle cushion. Frequent turn/reposition. Continued monitoring Will need to continue to monitor (7) Thrombocytopenia: Plan: Platelet count currently 58,000 No anticoagulation or antiplatelet therapy at this time Initial drop 06/02/2024. Patient diagnosed with rhinovirus 05/30/2024. Etiology could also be MASH Continue to follow CBC. Will check differential tomorrow (8) S/P AVR: Plan: Mechanical aortic valve Anticoagulation held secondary to GI bleed requiring transfusion of packed red blood cells Cardiology consulted. Appreciate Dr. Linares's input GI has stated that he is likely to rebleed with anticoagulation therapy. Clearly this would increase his stroke risk without chronic anticoagulation therapy Consider restarting anticoagulation when risk of GI bleed decreases Currently unable to safely add antiplatelet therapy secondary to platelet count of 58,000 If platelet count does improved to over 100,000, consider adding aspirin 81 mg p.o. daily Will continue with SBE prophylaxis for dental procedures Plan Dispo: continued inpatient stay, HD per nephrology Follow ammonia/elevation in lactulose as needed Rehab w/ HD capability at [place] planned, CM following Updated family over the weekend on plan, can continue to update as progresses Admission and Anticipated Discharge Date Admission Date: May 18, 2024 Supervising Physician Co-Signing Physician Notes chart reviewed, case discussed with Benjamín Mitchell PA-C. as above Subjective Attending: Dr. Helm Patient seen and examined at bedside. He is extremely hard of hearing. Hearing aid is in place but patient still had difficulty. Patient reports no acute issues. He does have ambulation difficulties and reports he needs help with repositioning in bed. Sacral pain is generally well- controlled. No other acute complaints by patient at this time. Review of Systems 2 Review of Systems: A total of 10 systems was reviewed and is negative other than as listed in the HPI Physical Exam 2 Physical Exam: GENERAL : No acute distress EYES: No icterus, gaze conjugate NOSE: No evidence of epistaxis MOUTH: No lesions or candidiasis NECK: Supple LUNGS: CTA B/L, no wheezes, rales or rhonchi HEART: Regular, rate controlled ABDOMEN: Soft, NT, ND, BS Present EXTREMITIES: No LE edema, pedal pulses intact. Bilateral waffle boots in place NEURO: A&OX3. Profound weakness of lower extremities. Patient with significant deconditioning. Moves all 4 limbs spontaneously and to command. Pupils equal round and reactive to light. No facial droop. No slurred speech. Results & Data Results & Data Vital Signs (Past 12 Hours) Vital Signs Temp Pulse Resp BP Pulse Ox O2 Del Method 06/26/24 15:45 36.7 C 83 17 139/70 95 Room Air 06/26/24 07:11 36.3 C L 80 17 131/62 97 Room Air 06/26/24 07:10 Room Air Laboratory Results 06/26/24 06:33 06/26/24 06:33 PG Care Time/CCT Total # of Minutes Spent Total Time Spent with Patient: Total time spent is greater than 50% in coordination of care (as documented) at patient's floor/unit and/or counseling patient: 30 minutes including chart review Coding Level of Care Code 02329 SUB INP/OBS CARE 2/35MIN Medical Decision Making Low Complexity Diagnoses Acute kidney injury N17.9 Acute metabolic encephalopathy G93.41 CHF (congestive heart failure) I50.9 Radiation proctitis K62.7 Adrenal insufficiency E27.40 Stage III pressure sore L89.93 Thrombocytopenia D69.6 S/P AVR Z95.2 Time Spent (min) 30
[2024-06-27 07:27] LABS: Basophils # (auto) 0.01 K/uL (0.00-0.20); Basophils % (auto) 0.2 %; Eosinophils # (auto) 0.28 K/uL (0.00-0.50); Eosinophils % (auto) 4.3 %; Hematocrit (blood only) 29.7 % (42.0-52.0); Hemoglobin 9.8 g/dl (14.0-18.0); Immature Granulocytes # (auto) 0.02 K/uL (0.01-0.20); Immature Granulocytes % (auto) 0.3 %; Lymphocytes # (auto) 0.29 K/uL (1.20-3.40); Lymphocytes % (auto) 4.5 %; Mean Corpuscular Hemoglobin 31.9 pg (25.0-34.0); Mean Corpuscular Volume 96.7 fL (80.0-100.0); Mean Platelet Volume 10.5 fL (9.4-12.4); Monocytes # (auto) 0.55 K/uL (0.11-0.59); Monocytes % (auto) 8.5 %; Neutrophils % (auto) 82.2 %; Platelet Count 69 K/uL (130-400); RDW Coefficient of Variation 20.1 % (11.5-14.5); RDW Standard Deviation 70.7 fL (36.4-46.3); Red Blood Count 3.07 M/uL (4.70-6.10); White Blood Count 6.45 K/ul (4.8-10.8)
[2024-06-27 07:43] LABS: Albumin Globulin Ratio 0.9 (0.9-2); Albumin Level 2.8 gm/dl (3.4-5.0); BUN Creatinine Ratio 17.2 (10-20); Bilirubin,Total 0.8 mg/dl (0.2-1.0); Calcium 8.5 mg/dl (8.6-10.3); Creatinine Clr Calc Pharmacy 18.4 ml/min; Total Protein 5.8 gm/dl (6.0-8.3)
[2024-06-27 08:18] LABS: Anisocytosis Present; Polychromasia 1+
--- NOTE | 2024-06-27 11:43 | Nephrology Progress Note ---
Date of Service June 27, 2024 Assessment & Plan (1) End stage kidney disease: (2) Anemia: (3) Generalized weakness: Plan 79-year-old male with h/o ESKD and h/o stage 4 CKD with baseline creatinine 2.0 mg/dl dating back to at least 08/30. He was hospitalized recently at [facility] for hepatorenal syndrome and required initiation of HD but stopped ~ 1 month ago, still has a R IJ TCC in place. He was admitted on 05/18/2024 for evaluation of gross hematuria, mental status changes, INR 13 and creatinine 2.0. Renal ultrasound negative for hydronephrosis. Kidney function continued to worsen with oliguria and no improvement in mental status and he was restarted on HD on 05/27/24 for oliguric VINICIUS. He remains dialysis dependent for last almost a month, no sign of renal recovery, noted to have sharp rise in creatinine in between dialysis. Continue on maintenance hemodialysis, currently blood pressure , electrolyte, volume status acceptable. --Continue on intermittent dialysis MWF schedule --Dose medications for eGFR less than 10 --LANDEN with HD --Left arm nephrology precaution for possible AV fistula in future. --waiting on [facility] care facility discharge, possibly to [facility] and dialysis at [facility]. Admission and Anticipated Discharge Date Admission Date: May 18, 2024 Subjective Papito was seen and evaluated this morning. Tolerating HD, denied any symptoms and reports overall feeling well but remains confused. Volume status acceptable. Electrolyte acceptable. Review of Systems Review of Systems: Detailed review of system was done and denied any symptoms. Physical Exam Constitutional: WD/WN, vitals as above + ill appearing; no acute distress Eyes: + anicteric sclerae Respiratory: Auscultation: lungs clear to auscultation bilaterally Cardiovascular: RRR, no murmur, no edema Skin: + turgor decreased and + skin atrophy; n o ulcers Neurologic: moves all extremities Results & Data Vital Signs (Past 12 Hours) Vital Signs Temp Pulse Pulse Resp BP BP Pulse Ox 06/27/24 11:00 82 118/63 06/27/24 10:30 83 126/58 L 06/27/24 10:00 81 114/72 06/27/24 09:30 83 126/65 06/27/24 07:10 36.5 C 80 17 136/72 96 O2 Del Method 06/27/24 11:00 06/27/24 10:30 06/27/24 10:00 06/27/24 09:30 06/27/24 07:10 Room Air PG Care Time/CCT Total # of Minutes Spent Total Time Spent with Patient: Total time spent is greater than 50% in coordination of care (as documented) at patient's floor/unit and/or counseling patient: Coding Level of Care Code 63574 SUB INP/OBS CARE 2/35MIN Diagnoses End stage kidney disease N18.6 Anemia D64.9 Anemia type: unspecified type Generalized weakness R53.1 (2) Anemia Anemia type: unspecified type Qualified Code(s): D64.9 - Anemia, unspecified
[2024-06-27] MEDS: EPOETIN ALFA 10,000 UNITS/ML VIAL IV STA (11:49)
--- NOTE | 2024-06-27 16:58 | Hospitalist Progress Note ---
Date of Service June 27, 2024 Assessment & Plan (1) Radiation proctitis: Plan: Recurrent rectal bleeding from radiation-induced proctitis from prior radiation for prostate cancer - Intermittent BRBPR, appears improving but still with some streaking - Hgb stable/improved after 5u pRBC during inpatient stay (along with dose of vitamin K) - Flex sig revealed multiple colonic angioectasias, treated with APC. Radiation proctitis noted with oozing on contact or air. APC done but patient had ulceration still present from last APC and was oozing on arrival at flex sig - GI consulted > Patient is at high risk for rebleeding as his rectum is friable with ulcerated radiation proctitis > Recommends involving cardiology to discuss risks and benefits of holding anticoagulation with patient given his mechanical aortic valve replacement - Cardiology consulted -- increased stroke risk without chronic anticoagulation therapy, but in the setting of ongoing GI bleed with profound anemia, would continue to hold anticoagulation for now > If in the future his bleeding risk improves, would consider resuming anticoagulation therapy at that time - Hold all anticoagulation for now - Soften stools - Continues on PPI BID (2) End stage kidney disease: Plan: Presented with creatinine of 2 at time of admission, baseline creatinine <2 - Was hospitalized for nearly a month at [facility] in fall 2023 and was started on HD during the hospitalization. Per records, had hepatorenal syndrome while in [facility] - Has intermittently required HD this admission - Nephrology following -- HD treatments have been adjusted to 3x/week (MWF) - MELD Na = 23, very poor prognosis - Continue midodrine 10 mg TID for associated hypotension with hepatorenal syndrome (3) S/P AVR: Plan: Mechanical aortic valve - Anticoagulation held secondary to GI bleed requiring multiple blood transfusions - Currently unable to safely add antiplatelet therapy secondary to low platelet count - If platelet count does improved to over 100,000, consider adding aspirin 81 mg p.o. daily (4) Acute metabolic encephalopathy: Plan: Ongoing, waxing/waning - Likely multifactorial cause: toxic effects from seroquel and benzos (both stopped on 05/12), acidosis and uremia, rhinovirus infection and probable bacterial pneumonia; - MRI brain negative - Continue delirium precautions - Continue treating ongoing infections - Continue lactulose to prevent elevated ammonia -- goal is 3-4 BMs daily. If not, consider adding rifaximin - Supportive care, frequent orientation encouraged with wake/sleep schedules. 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 Daughter reports patient had steroids while in [place] - Cosyntropin stim test this admission -- Did not pass. Did not stim to >18. Baseline cortisol was low at 3 - Continue to wean steroids -- Initially on dexamethasone and transitioned to hydrocortisone 15mg/5mg -- BPs stable (6) CHF (congestive heart failure): Plan: Chronic HFpEF, s/p AVR but not on anticoagulation due to cirrhosis/coagulopathy and h/o GIB chronically - Echo 02/29/2024 -- EF 50 to 55%, moderate dilation of RV, LA, RA, mechanical aortic valve in place, trace aortic regurgitation, severe tricuspid regurgitation, diastolic dysfunction grade 3 - Metoprolol and Bumex on HOLD due to hypotension and VINICIUS - Continue HD for volume management as above. Plan for 3x/wk at dc and will need coordinated w/ SNF/rehab (7) Stage III pressure sore: Plan: Stage III sacral wound, suspect secondary to extended period supine in bed - Butt paste ordered - Encouraged to get out of bed to both help wound and prevent worsening weakness/immobilization/etc. - Wound care consulted, waffle cushion. Frequent turn/reposition - Continue to monitor Plan Updated daughter at bedside VTE PPx: TEDs CODE STATUS: DNR/DNI Dispo: Accepted at senior care care facility when medically stable / outpatient HD is set up Admission and Anticipated Discharge Date Admission Date: May 18, 2024 Supervising Physician Co-Signing Physician Notes chart reviewed, case discussed with Catherine Maynard PA-C. as above Subjective Patient seen and evaluated at bedside with his daughter present. He reports feeling a bit tired from his dialysis treatment earlier. He denies any acute complaints or concerns at this time. Addressed daughter's questions and concerns. Physical Exam Physical Exam: General: No acute distress, nondiaphoretic, frail elderly male. Very hard of hearing. Physically deconditioned. Skin: Scattered small bruising on arms. Permcath right upper chest wall. Peripheral edema much improved. Sacral wound stable. Cardiac: Regular rate and rhythm. Harsh mechanical valve sound. Pulm: Diminished breath sounds at bases R>L but otherwise clear to auscultation. No respiratory distress. 94% on room air. Abdominal: Soft, nontender, nondistended. No guarding/rebound. Bowel sounds present. Neuro: A&O x2 (person, place). No focal neurological deficits. Results & Data Results & Data Vital Signs (Past 12 Hours) Vital Signs Temp Pulse Pulse Pulse Resp BP BP 06/27/24 14:25 97.5 F L 91 H 18 124/68 06/27/24 12:34 97.7 F 81 124/71 06/27/24 12:00 83 121/63 06/27/24 11:30 81 115/64 06/27/24 11:00 82 118/63 06/27/24 10:30 83 126/58 L 06/27/24 10:00 81 114/72 06/27/24 09:30 83 126/65 06/27/24 07:10 97.7 F 80 17 136/72 Pulse Ox O2 Del Method 06/27/24 14:25 94 Room Air 06/27/24 12:34 06/27/24 12:00 06/27/24 11:30 06/27/24 11:00 06/27/24 10:30 06/27/24 10:00 06/27/24 09:30 06/27/24 07:10 96 Room Air Laboratory Results Reviewed CBC Reviewed CMP PG Care Time/CCT Total # of Minutes Spent Total Time Spent with Patient: Total time spent is greater than 50% in coordination of care (as documented) at patient's floor/unit and/or counseling patient: Coding Level of Care Code 83996 SUB INP/OBS CARE 2/35MIN Diagnoses Radiation proctitis K62.7 End stage kidney disease N18.6 S/P AVR Z95.2 Acute metabolic encephalopathy G93.41 Adrenal insufficiency E27.40 CHF (congestive heart failure) I50.9 Stage III pressure sore L89.93
--- NOTE | 2024-06-28 08:55 | Hospitalist Progress Note ---
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 Radiation proctitis noted with oozing on contact or air. APC done but patient had ulceration still present from last APC and was oozing on arrival at flex sig - GI consulted -- Patient is at high risk for rebleeding as his rectum is friable with ulcerated radiation proctitis - Cardiology consulted -- increased stroke risk without chronic anticoagulation therapy, but in the setting of ongoing GI bleed with profound anemia, would continue to hold anticoagulation for now > If in the future his bleeding risk improves, would consider resuming anticoagulation therapy at that time - Hold all anticoagulation for now - Soften stools - Continues on PPI BID (2) End stage kidney disease: Plan: Presented with creatinine of 2 at time of admission, baseline creatinine <2 - Was hospitalized for nearly a month at [facility] in fall 2023 and was started on HD during the hospitalization. Per records, had hepatorenal syndrome while in [facility] - Has intermittently required HD this admission - Nephrology following -- HD treatments have been adjusted to 3x/week (MWF) - MELD Na = 23, very poor prognosis - Continue midodrine 10 mg TID for associated hypotension with hepatorenal syndrome (3) S/P AVR: Plan: Mechanical aortic valve - Anticoagulation held secondary to GI bleed requiring multiple blood transfusions - Currently unable to safely add antiplatelet therapy secondary to low platelet count - If platelet count does improved to over 100,000, consider adding aspirin 81 mg p.o. daily (4) Acute metabolic encephalopathy: Plan: Ongoing, waxing/waning - Likely multifactorial cause: toxic effects from seroquel and benzos (both stopped on 05/12), acidosis and uremia, rhinovirus infection and probable bacterial pneumonia; - MRI brain negative - Continue delirium precautions - Continue treating ongoing infections - Continue lactulose to prevent elevated ammonia -- goal is 3-4 BMs daily. If not, consider adding rifaximin - Supportive care, frequent orientation encouraged with wake/sleep schedules. 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 Daughter reports patient had steroids while in [place] - Cosyntropin stim test this admission -- Did not pass. Did not stim to >18. Baseline cortisol was low at 3 - Initially on dexamethasone and transitioned to hydrocortisone 15mg/5mg -- BPs stable; continue this dose ongoing (6) CHF (congestive heart failure): Plan: Chronic HFpEF, s/p AVR but not on anticoagulation due to cirrhosis/coagulopathy and h/o GIB chronically - Echo 02/29/2024 -- EF 50 to 55%, moderate dilation of RV, LA, RA, mechanical aortic valve in place, trace aortic regurgitation, severe tricuspid regurgitation, diastolic dysfunction grade 3 - Metoprolol and Bumex on HOLD due to hypotension and VINICIUS - Continue HD for volume management as above. Plan for 3x/wk at dc and will need coordinated with SNF/rehab (7) Stage III pressure sore: Plan: Stage III sacral wound, suspect secondary to extended period supine in bed - Butt paste ordered - Encouraged to get out of bed to both help wound and prevent worsening weakness/immobilization/etc. - Wound care consulted, waffle cushion. Frequent turn/reposition - Continue to monitor Plan VTE PPx: TEDs CODE STATUS: DNR/DNI Dispo: Referrals pending to intermediate frame tender care facility / outpatient HD must be coordinated Admission and Anticipated Discharge Date Admission Date: May 18, 2024 Subjective Patient seen and evaluated at bedside. He is in good spirits today and appears to have a clear mental status. He reports looking forward to lunch which is about to arrive momentarily. He denies any acute complaints at this time. He is hopeful for long-term placement prior to [place]. RN reports very minimal streaking of bright red blood with bowel movement earlier; no significant rectal bleeding. Physical Exam Physical Exam: General: No acute distress, nondiaphoretic, frail elderly male. Very hard of hearing. Physically deconditioned. Skin: Scattered small bruising on arms. Permcath right upper chest wall. Peripheral edema much improved. Sacral wound stable. Cardiac: Regular rate and rhythm. Harsh mechanical valve sound. Pulm: Diminished breath sounds at bases R>L but otherwise clear to auscultation. No respiratory distress. 94% on room air. Abdominal: Soft, nontender, nondistended. No guarding/rebound. Bowel sounds present. Neuro: A&O x2 (person, place). No focal neurological deficits. Results & Data Results & Data Vital Signs (Past 12 Hours) Vital Signs Temp Pulse Resp BP Pulse Ox O2 Del Method 06/28/24 08:09 97.9 F 92 H 18 134/73 94 Room Air 06/27/24 21:15 Room Air Laboratory Results Reviewed CBC Reviewed BMP PG Care Time/CCT Total # of Minutes Spent Total Time Spent with Patient: Total time spent is greater than 50% in coordination of care (as documented) at patient's floor/unit and/or counseling patient: Coding Level of Care Code 21527 SUB INP/OBS CARE 2/35MIN Diagnoses Radiation proctitis K62.7 End stage kidney disease N18.6 S/P AVR Z95.2 Acute metabolic encephalopathy G93.41 Adrenal insufficiency E27.40 CHF (congestive heart failure) I50.9 Stage III pressure sore L89.93
[2024-06-28 09:00] LABS: Hematocrit (blood only) 31.9 % (42.0-52.0); Mean Corpuscular Hemoglobin 30.5 pg (25.0-34.0); Mean Corpuscular Hgb Conc 31.3 g/dL (32.0-36.0); Mean Corpuscular Volume 97.3 fL (80.0-100.0); Mean Platelet Volume 10.5 fL (9.4-12.4); Platelet Count 77 K/uL (130-400); RDW Coefficient of Variation 20.4 % (11.5-14.5); RDW Standard Deviation 72.6 fL (36.4-46.3); Red Blood Count 3.28 M/uL (4.70-6.10); White Blood Count 6.82 K/ul (4.8-10.8)
[2024-06-28 09:25] LABS: BUN Creatinine Ratio 14.8 (10-20); Calcium 8.8 mg/dl (8.6-10.3); Creatinine Clr Calc Pharmacy 20.5 ml/min; Potassium 3.5 mmol/L (3.5-5.1)
--- NOTE | 2024-06-28 10:32 | Nephrology Progress Note ---
Date of Service June 28, 2024 Assessment & Plan (1) End stage kidney disease: (2) Anemia: (3) Generalized weakness: Plan 79-year-old male with h/o ESKD and h/o stage 4 CKD with baseline creatinine 2.0 mg/dl dating back to at least 08/30. He was hospitalized recently at [facility] for hepatorenal syndrome and required initiation of HD but stopped ~ 1 month ago, still has a R IJ TCC in place. He was admitted on 05/18/2024 for evaluation of gross hematuria, mental status changes, INR 13 and creatinine 2.0. Renal ultrasound negative for hydronephrosis. Kidney function continued to worsen with oliguria and no improvement in mental status and he was restarted on HD on 05/27/24 for oliguric VINICIUS. He remains dialysis dependent for > a month, no sign of renal recovery, noted to have sharp rise in creatinine in between dialysis. Continue on maintenance hemodialysis, currently blood pressure, electrolyte, volume status acceptable. --Continue on intermittent dialysis MWF schedule --Dose medications for eGFR less than 10 --LANDEN with HD --Left arm nephrology precaution for possible AV fistula in future. --waiting on adjunct faculty for medical terminology care facility discharge, possibly to [facility] and dialysis at [facility]. Admission and Anticipated Discharge Date Admission Date: May 18, 2024 Subjective Papito was seen and evaluated this morning. Had HD yesterday, denied any symptoms and reports overall feeling well but remains confused. Volume status acceptable. Electrolyte acceptable. Review of Systems Review of Systems: Detailed review of system was done and denied any symptoms. Physical Exam Constitutional: WD/WN, vitals as above no acute distress Eyes: + anicteric sclerae Respiratory: Auscultation: lungs clear to auscultation bilaterally Cardiovascular: RRR, no murmur, no edema Skin: + turgor decreased and + skin atrophy; n o ulcers Neurologic: moves all extremities Results & Data Vital Signs (Past 12 Hours) Vital Signs Temp Pulse Resp BP Pulse Ox O2 Del Method 06/28/24 08:09 36.6 C 92 H 18 134/73 94 Room Air PG Care Time/CCT Total # of Minutes Spent Total Time Spent with Patient: Total time spent is greater than 50% in coordination of care (as documented) at patient's floor/unit and/or counseling patient: Coding Level of Care Code 33825 SUB INP/OBS CARE MIN Diagnoses End stage kidney disease N18.6 Anemia D64.9 Anemia type: unspecified type Generalized weakness R53.1 (2) Anemia Anemia type: unspecified type Qualified Code(s): D64.9 - Anemia, unspecified
[2024-06-29 07:24] LABS: Hematocrit (blood only) 31.6 % (42.0-52.0); Hemoglobin 10.1 g/dl (14.0-18.0); Mean Corpuscular Hemoglobin 31.1 pg (25.0-34.0); Mean Corpuscular Volume 97.2 fL (80.0-100.0); Mean Platelet Volume 10.5 fL (9.4-12.4); Platelet Count 95 K/uL (130-400); RDW Coefficient of Variation 20.8 % (11.5-14.5); RDW Standard Deviation 72.9 fL (36.4-46.3); Red Blood Count 3.25 M/uL (4.70-6.10); White Blood Count 8.29 K/ul (4.8-10.8)
[2024-06-29 07:38] LABS: BUN Creatinine Ratio 18.1 (10-20); Creatinine Clr Calc Pharmacy 16.9 ml/min; Potassium 4.1 mmol/L (3.5-5.1)
--- NOTE | 2024-06-29 10:28 | Nephrology Progress Note ---
Date of Service June 29, 2024 Assessment & Plan (1) End stage kidney disease: (2) Anemia: (3) Generalized weakness: Plan 79-year-old male with h/o ESKD and h/o stage 4 CKD with baseline creatinine 2.0 mg/dl dating back to at least 08/30. He was hospitalized recently at [facility] for hepatorenal syndrome and required initiation of HD but stopped ~ 1 month ago, still has a R IJ TCC in place. He was admitted on 05/18/2024 for evaluation of gross hematuria, mental status changes, INR 13 and creatinine 2.0. Renal ultrasound negative for hydronephrosis. Kidney function continued to worsen with oliguria and no improvement in mental status and he was restarted on HD on 05/27/24 for oliguric VINICIUS. He remains dialysis dependent for > a month, no sign of renal recovery, noted to have sharp rise in creatinine in between dialysis. Continue on maintenance hemodialysis, currently blood pressure, electrolyte, volume status acceptable. --tolerating dialysis, BP slightly low and HR high, if needed irma decrease UF --Dose medications for eGFR less than 10 --LANDEN with HD --Left arm nephrology precaution for possible AV fistula in future. --waiting on termite control representative care facility discharge, possibly to [facility] and dialysis at [facility]. Admission and Anticipated Discharge Date Admission Date: May 18, 2024 Subjective Papito was seen and evaluated during HD this morning. He denied any symptoms except feeling tired but remains confused. Volume status acceptable. Electrolyte acceptable. BP relatively low. Review of Systems Review of Systems: Detailed review of system was done and denied any symptoms. Physical Exam Constitutional: WD/WN, vitals as above no acute distress Eyes: + anicteric sclerae Respiratory: Auscultation: lungs clear to auscultation bilaterally Cardiovascular: RRR, no murmur, no edema Skin: + turgor decreased and + skin atrophy; n o ulcers Neurologic: moves all extremities Results & Data Vital Signs (Past 12 Hours) Vital Signs Temp Pulse Pulse Resp BP BP Pulse Ox 06/29/24 10:00 99 H 100/70 06/29/24 09:30 99 H 114/65 06/29/24 09:25 94 H 113/70 06/29/24 09:18 36.7 C 119 H 12/24/24 08:10 37.1 C 112 H 16 135/73 92 O2 Del Method 06/29/24 10:00 06/29/24 09:30 06/29/24 09:25 06/29/24 09:18 06/29/24 08:10 Room Air PG Care Time/CCT Total # of Minutes Spent Total Time Spent with Patient: Total time spent is greater than 50% in coordination of care (as documented) at patient's floor/unit and/or counseling patient: Coding Level of Care Code 99263 SUB INP/OBS CARE 2/35MIN Diagnoses End stage kidney disease N18.6 Anemia D64.9 Anemia type: unspecified type Generalized weakness R53.1 (2) Anemia Anemia type: unspecified type Qualified Code(s): D64.9 - Anemia, unspecified
--- NOTE | 2024-06-29 11:41 | Hospitalist Progress Note ---
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 Radiation proctitis noted with oozing on contact or air. APC done but patient had ulceration still present from last APC and was oozing on arrival at flex sig - GI consulted -- Patient is at high risk for rebleeding as his rectum is friable with ulcerated radiation proctitis - Cardiology consulted -- increased stroke risk without chronic anticoagulation therapy, but in the setting of ongoing GI bleed with profound anemia, would continue to hold anticoagulation for now > If in the future his bleeding risk improves, would consider resuming anticoagulation therapy at that time - Hold all anticoagulation for now - Soften stools - Continues on PPI BID (2) End stage kidney disease: Plan: Presented with creatinine of 2 at time of admission, baseline creatinine <2 - Was hospitalized for nearly a month at [facility] in fall 2023 and was started on HD during the hospitalization. Per records, had hepatorenal syndrome while in [facility] - Has intermittently required HD this admission - Nephrology following -- HD treatments have been adjusted to 3x/week (MWF) - MELD Na = 23, very poor prognosis - Continue midodrine 10 mg TID for associated hypotension with hepatorenal syndrome (3) S/P AVR: Plan: Mechanical aortic valve - Anticoagulation held secondary to GI bleed requiring multiple blood transfusions - Currently unable to safely add antiplatelet therapy secondary to low platelet count - If platelet count does improved to over 100,000, consider adding aspirin 81 mg p.o. daily (4) Acute metabolic encephalopathy: Plan: Ongoing, waxing/waning - Likely multifactorial cause: toxic effects from seroquel and benzos (both stopped on 05/12), acidosis and uremia, rhinovirus infection and probable bacterial pneumonia; - MRI brain negative - Continue delirium precautions - Continue treating ongoing infections - Continue lactulose to prevent elevated ammonia -- goal is 3-4 BMs daily. If not, consider adding rifaximin - Supportive care, frequent orientation encouraged with wake/sleep schedules. 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 Daughter reports patient had steroids while in [place] - Cosyntropin stim test this admission -- Did not pass. Did not stim to >18. Baseline cortisol was low at 3 - Initially on dexamethasone and transitioned to hydrocortisone 15mg/5mg -- BPs stable; continue this dose ongoing (6) CHF (congestive heart failure): Plan: Chronic HFpEF, s/p AVR but not on anticoagulation due to cirrhosis/coagulopathy and h/o GIB chronically - Echo 02/29/2024 -- EF 50 to 55%, moderate dilation of RV, LA, RA, mechanical aortic valve in place, trace aortic regurgitation, severe tricuspid regurgitation, diastolic dysfunction grade 3 - Metoprolol and Bumex on HOLD due to hypotension and VINICIUS - Continue HD for volume management as above. Plan for 3x/wk at dc and will need coordinated with SNF/rehab (7) Stage III pressure sore: Plan: Stage III sacral wound, suspect secondary to extended period supine in bed - Butt paste ordered - Encouraged to get out of bed to both help wound and prevent worsening weakness/immobilization/etc. - Wound care consulted, waffle cushion. Frequent turn/reposition - Continue to monitor Plan VTE PPx: TEDs CODE STATUS: DNR/DNI Dispo: Referrals pending to buttermaker continuous churn care facility / outpatient HD must be coordinated Admission and Anticipated Discharge Date Admission Date: May 18, 2024 Supervising Physician Co-Signing Physician Notes The patient was not seen by me. The chart was reviewed. Case discussed with ROBERT Tariq. Agree with assessment and plan Subjective Patient seen and evaluated at bedside during his HD session. He reports feeling very tired, and fell asleep during our conversation so full ROS not obtained. Patient denies any acute complaints at this time. Physical Exam Physical Exam: General: No acute distress, nondiaphoretic, frail elderly male. Very hard of hearing. Physically deconditioned. Skin: Scattered small bruising on arms. Permcath right upper chest wall. Peripheral edema to knees bilaterally. Sacral wound stable. Cardiac: Regular rhythm, tachycardic rate in the 90s. Harsh mechanical valve sound. Pulm: Diminished breath sounds at bases R>L but otherwise clear to auscultation. No respiratory distress. 93% on room air. Abdominal: Soft, nontender. Mildly distended. No guarding/rebound. Bowel sounds present. Neuro: A&O x2 (person, place). No focal neurological deficits. Results & Data Results & Data Vital Signs (Past 12 Hours) Vital Signs Temp Pulse Pulse Resp BP BP Pulse Ox 06/29/24 10:30 99 H 118/76 06/29/24 10:00 99 H 100/70 06/29/24 09:30 99 H 114/65 06/29/24 09:25 94 H 113/70 06/29/24 09:18 98.1 F 119 H 06/29/24 08:10 98.8 F 112 H 16 135/73 92 O2 Del Method 06/29/24 10:30 06/29/24 10:00 06/29/24 09:30 06/29/24 09:25 06/29/24 09:18 06/29/24 08:10 Room Air Laboratory Results Reviewed CBC Reviewed BMP PG Care Time/CCT Total # of Minutes Spent Total Time Spent with Patient: Total time spent is greater than 50% in coordination of care (as documented) at patient's floor/unit and/or counseling patient: Coding Level of Care Code 56235 SUB INP/OBS CARE 2/35MIN Diagnoses Radiation proctitis K62.7 End stage kidney disease N18.6 S/P AVR Z95.2 Acute metabolic encephalopathy G93.41 Adrenal insufficiency E27.40 CHF (congestive heart failure) I50.9 Stage III pressure sore L89.93
[2024-06-30 06:28] LABS: Hematocrit (blood only) 30.1 % (42.0-52.0); Hemoglobin 9.5 g/dl (14.0-18.0); Mean Corpuscular Hgb Conc 31.6 g/dL (32.0-36.0); Mean Corpuscular Volume 98.4 fL (80.0-100.0); Mean Platelet Volume 10.9 fL (9.4-12.4); Platelet Count 76 K/uL (130-400); RDW Coefficient of Variation 20.8 % (11.5-14.5); RDW Standard Deviation 74.6 fL (36.4-46.3); Red Blood Count 3.06 M/uL (4.70-6.10); White Blood Count 6.53 K/ul (4.8-10.8)
[2024-06-30 06:51] LABS: BUN Creatinine Ratio 17.5 (10-20); Calcium 8.6 mg/dl (8.6-10.3); Creatinine Clr Calc Pharmacy 22.7 ml/min; Potassium 3.8 mmol/L (3.5-5.1)
--- NOTE | 2024-06-30 09:51 | Hospitalist Progress Note ---
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 Radiation proctitis noted with oozing on contact or air. APC done but patient had ulceration still present from last APC and was oozing on arrival at flex sig - GI consulted -- Patient is at high risk for rebleeding as his rectum is friable with ulcerated radiation proctitis - Cardiology consulted -- increased stroke risk without chronic anticoagulation therapy, but in the setting of ongoing GI bleed with profound anemia, would continue to hold anticoagulation for now > If in the future his bleeding risk improves, would consider resuming anticoagulation therapy at that time - Hold all anticoagulation for now - Soften stools - Continues on PPI BID (2) End stage kidney disease: Plan: Presented with creatinine of 2 at time of admission, baseline creatinine <2 - Was hospitalized for nearly a month at [facility] in fall 2023 and was started on HD during the hospitalization. Per records, had hepatorenal syndrome while in [facility] - Has intermittently required HD this admission - Nephrology following -- HD treatments have been adjusted to 3x/week (MWF) - MELD Na = 23, very poor prognosis - Continue midodrine 10 mg TID for associated hypotension with hepatorenal syndrome (3) S/P AVR: Plan: Mechanical aortic valve - Anticoagulation held secondary to GI bleed requiring multiple blood transfusions - Currently unable to safely add antiplatelet therapy secondary to low platelet count - If platelet count does improved to over 100,000, consider adding aspirin 81 mg p.o. daily (4) Acute metabolic encephalopathy: Plan: Ongoing, waxing/waning - Likely multifactorial cause: toxic effects from seroquel and benzos (both stopped on 05/12), acidosis and uremia, rhinovirus infection and probable bacterial pneumonia; - MRI brain negative - Continue delirium precautions - Continue treating ongoing infections - Continue lactulose to prevent elevated ammonia -- goal is 3-4 BMs daily. If not, consider adding rifaximin - Supportive care, frequent orientation encouraged with wake/sleep schedules. 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 Daughter reports patient had steroids while in [place] - Cosyntropin stim test this admission -- Did not pass. Did not stim to >18. Baseline cortisol was low at 3 - Initially on dexamethasone and transitioned to hydrocortisone 15mg/5mg -- BPs stable; continue this dose ongoing (6) CHF (congestive heart failure): Plan: Chronic HFpEF, s/p AVR but not on anticoagulation due to cirrhosis/coagulopathy and h/o GIB chronically - Echo 02/29/2024 -- EF 50 to 55%, moderate dilation of RV, LA, RA, mechanical aortic valve in place, trace aortic regurgitation, severe tricuspid regurgitation, diastolic dysfunction grade 3 - Metoprolol and Bumex on HOLD due to hypotension and VINICIUS - Continue HD for volume management as above. Plan for 3x/wk at [place] and will need coordinated with SNF/rehab (7) Stage III pressure sore: Plan: Stage III sacral wound, suspect secondary to extended period supine in bed - Butt paste ordered - Encouraged to get out of bed to both help wound and prevent worsening weakness/immobilization/etc. - Wound care consulted, mattle cushion. Frequent turn/reposition - Continue to monitor Plan VTE PPx: TEDs - not on patient during my visit 06/30, asked RN to reapply CODE STATUS: DNR/DNI Dispo: Referrals pending to termite control service representative care facility / outpatient HD must be coordinated Admission and Anticipated Discharge Date Admission Date: May 18, 2024 Supervising Physician Co-Signing Physician Notes The patient was not seen by me. The chart was reviewed. Case discussed with ROBERT Tariq. Agree with assessment and plan Subjective Patient seen and evaluated at bedside. He was sleeping upon my initial entry but then woke up for my visit. He is in good spirits today. He denies pain of his buttocks at this time. He was happy about the [employer] decor and cards in his room. He denied any acute complaints or concerns at this time. Physical Exam Physical Exam: General: No acute distress, nondiaphoretic, frail elderly male. Very hard of hearing. Physically deconditioned. Skin: Scattered small bruising on arms. Permcath right upper chest wall. Pitting peripheral edema to knees bilaterally. Sacral wound stable. Cardiac: Regular rhythm, tachycardic rate in the 90s. Harsh mechanical valve sound. Pulm: Diminished breath sounds at bases R>L but otherwise clear to auscultation. No respiratory distress. 93% on room air. Abdominal: Soft, nontender. Mildly distended. No guarding/rebound. Bowel sounds present. Neuro: A&O x2 (person, place). No focal neurological deficits. Results & Data Results & Data Vital Signs (Past 12 Hours) Vital Signs Temp Pulse Resp BP Pulse Ox O2 Del Method 06/30/24 07:34 98.2 F 91 H 16 141/73 H 93 Room Air Laboratory Results Reviewed CBC Reviewed BMP PG Care Time/CCT Total # of Minutes Spent Total Time Spent with Patient: Total time spent is greater than 50% in coordination of care (as documented) at patient's floor/unit and/or counseling patient: Coding Level of Care Code 98014 SUB INP/OBS CARE 2/35MIN Diagnoses Radiation proctitis K62.7 End stage kidney disease N18.6 S/P AVR Z95.2 Acute metabolic encephalopathy G93.41 Adrenal insufficiency E27.40 CHF (congestive heart failure) I50.9 Stage III pressure sore L89.93
--- NOTE | 2024-06-30 11:12 | Nephrology Progress Note ---
Date of Service June 30, 2024 Assessment & Plan (1) End stage kidney disease: (2) Anemia: (3) Generalized weakness: Plan 79-year-old male with h/o ESKD and h/o stage 4 CKD with baseline creatinine 2.0 mg/dl dating back to at least 08/30. He was hospitalized recently at [facility] for hepatorenal syndrome and required initiation of HD but stopped ~ 1 month ago, still has a R IJ TCC in place. He was admitted on 05/18/2024 for evaluation of gross hematuria, mental status changes, INR 13 and creatinine 2.0. Renal ultrasound negative for hydronephrosis. Kidney function continued to worsen with oliguria and no improvement in mental status and he was restarted on HD on 05/27/24 for oliguric VINICIUS. He remains dialysis dependent for > a month, no sign of renal recovery, noted to have sharp rise in creatinine in between dialysis. Continue on maintenance hemodialysis, currently blood pressure, electrolyte, volume status acceptable. --Next dialysis Friday --Dose medications for eGFR less than 10 --LANDEN with HD --Left arm nephrology precaution for possible AV fistula in future. --waiting on synthetic cloth binding cutter care facility discharge, possibly to [facility] and dialysis at [facility]. Admission and Anticipated Discharge Date Admission Date: May 18, 2024 Subjective Papito was seen and evaluated this morning. He denied any symptoms but remains confused. Volume status acceptable. Electrolyte acceptable. BP fair. Review of Systems Review of Systems: Detailed review of system was done and denied any symptoms. Physical Exam Constitutional: WD/WN, vitals as above no acute distress Eyes: + anicteric sclerae Respiratory: Auscultation: lungs clear to auscultation bilaterally Cardiovascular: RRR, no murmur, no edema Skin: + turgor decreased and + skin atrophy; n o ulcers Neurologic: moves all extremities Results & Data Vital Signs (Past 12 Hours) Vital Signs Temp Pulse Resp BP Pulse Ox O2 Del Method 06/30/24 07:34 36.8 C 91 H 16 141/73 H 93 Room Air PG Care Time/CCT Total # of Minutes Spent Total Time Spent with Patient: Total time spent is greater than 50% in coordination of care (as documented) at patient's floor/unit and/or counseling patient: Coding Level of Care Code 17908 SUB INP/OBS CARE 2/35MIN Diagnoses End stage kidney disease N18.6 Anemia D64.9 Anemia type: unspecified type Generalized weakness R53.1 (2) Anemia Anemia type: unspecified type Qualified Code(s): D64.9 - Anemia, unspecified
--- NOTE | 2024-07-01 08:24 | Hospitalist Progress Note ---
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 Radiation proctitis noted with oozing on contact or air. APC done but patient had ulceration still present from last APC and was oozing on arrival at flex sig GI consulted -- Patient is at high risk for rebleeding as his rectum is friable with ulcerated radiation proctitis Cardiology consulted -- increased stroke risk without chronic anticoagulation therapy, but in the setting of ongoing GI bleed with profound anemia, would continue to hold anticoagulation for now > If in the future his bleeding risk improves, would consider resuming anticoagulation therapy at that time - Hold all anticoagulation for now - Soften stools - Continues on PPI BID Hgb remains stable at 9.7, no significant bleeding at present Wound RN notified for f/u exam for sacral wound -- continue lactulose, will check ammonia in AM given >3-4BM to back down. consider repeat cdiff testing if needed but WBC wnl/afebrile and abdomen NONTENDER (2) End stage kidney disease: Plan: Presented with creatinine of 2 at time of admission, baseline creatinine <2 Was hospitalized for nearly a month at [facility] in fall 2023 and was started on HD during the hospitalization. Per records, had hepatorenal syndrome while in [facility] Has intermittently required HD this admission Nephrology following -- HD treatments have been adjusted to 3x/week (MWF) MELD Na = 23, very poor prognosis HD on 06/29 for 800mL, next HD scheduled for MONDAY 07/02 Continues on midodrine 10 mg TID for associated hypotension with hepatorenal syndrome --> consideration to titrate midodrine pending repeat BPs w/ HD (3) S/P AVR: Plan: Mechanical aortic valve(per discussion w/ daughter previously, Maicol's INR was >8 during hospitalization at [place] prior month) Anticoagulation held secondary to GI bleed requiring multiple blood transfusions Currently unable to safely add antiplatelet therapy secondary to low platelet count If platelet count does improved to over 100,000, consider adding aspirin 81 mg p.o. daily however remains at 92 presently but will monitor (4) Acute metabolic encephalopathy: Plan: Ongoing, waxing/waning Likely multifactorial cause: toxic effects from seroquel and benzos (both stopped on 05/12), acidosis and uremia, rhinovirus infection and probable bacterial pneumonia; MRI brain negative Continue delirium precautions Continue treating ongoing infections Continue lactulose to prevent elevated ammonia -- goal is 3-4 BMs daily. (Continues ON RIFAXIMIN already, BID) Checking ammonia w/ AM labs, can back lactulose to ONCE DAILY if remaining stable given ongoing diarrhea DId give Cefepime IV last week for +UA/cx however discussed prior w/ pharmacy and strongly felt colonized and was stopped. Notable flomax placed on hold at that time as marvin was placed but does not appear to have any increased retention at this time and will avoid resuming to prevent BP issues given on midodrine for BP support/hepatorenal syndrome Continue supportive care, frequent orientation encouraged with wake/sleep schedules. 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 Daughter reports patient had steroids while in [place] Cosyntropin stim test this admission -- Did not pass. Did not stim to >18. Baseline cortisol was low at 3 Initially on dexamethasone and transitioned to hydrocortisone 15mg/5mg -- BPs stable and remains on 15/5mg which will need continued at al (6) CHF (congestive heart failure): Plan: Chronic HFpEF, s/p AVR but not on anticoagulation due to cirrhosis/coagulopathy and h/o GIB chronically Echo 02/29/2024 -- EF 50 to 55%, moderate dilation of RV, LA, RA, mechanical aortic valve in place, trace aortic regurgitation, severe tricuspid regurgitation, diastolic dysfunction grade 3 Metoprolol and Bumex on HOLD due to hypotension and VINICIUS Continue HD for volume management as above. Plan for 3x/wk at dc and will need coordinated with SNF/rehab (7) Stage III pressure sore: Plan: Stage III sacral wound, suspect secondary to extended period supine in bed Butt paste ordered Encouraged to get out of bed to both help wound and prevent worsening weakness/immobilization/etc. Wound care consulted, ivelisse cushion. Frequent turn/reposition Continue to monitor Wound RN notified for f/u exam, consider low airloss mattress. Continue increased ambulation/OOB to chair Plan VTE PPx: zuly hose/SCDs. Chemoproph avoided given GI bleeding/transfusions required. Monitor for aspirin daily given valve/stroke risk if Plt >100k CODE STATUS: DNR/DNI Dispo: ongoing inpatient stay, wound RN to repeat eval. Increase OOB--> chair, frequent turn/repositions. CM following for placement for ocean transportation intermediary care at al which neds HD needs coordinated as well. Checking ammonia w/ AM labs and if stable will decrease to prevent increased diarrhea. Monitor for need for repeat cdiff testing. Admission and Anticipated Discharge Date Admission Date: May 18, 2024 Supervising Physician Co-Signing Physician Notes The patient was not seen by me. The chart was reviewed. Case discussed with ROBERT Mccallum. Agree with assessment and plan Subjective Eval this morning, sitting up in bed. Got washed up well this morning with nursing. Continues with multiple bowel movements and will monitor ammonia in AM to back down to once daily. ABdomen much softer. Leg edema improved since resumption of zuly stockings/SCDs. Denies breathing, looks a little dry. Flomax remains on hold and no retention noted. Sacral wound possible SLIGHTLY worse, will plan to get up out of bed to chair for lunch/increase mobilization. Physical Exam 2 Physical Exam: General: 79 male sitting up in bed, got washed up, fatigued but NAD, asked for drink of water. remains alert to person, knows in hospital, intermittent to year HEENT: head atraumatic, normocephalic, mm slightly dry, trachea midline Resp: no tachypnea/cough, even/unlabored but diminished in the bases, no wheezing/rales, on room air 95% CV: RRR, harsh murmur c/w mechanical valve, no significant pedal edema but remains with edema in thighs GI: +BS throughout, less distension/softer, no tenderness/guarding : no marvin MSK/Neuro: nonfocal, generalized weakness, answering questions appropriately Skin: sacrum w/ excoriations, slight worsening of stage III pressure sore to superior aspect, no active purulent drainage Results & Data Results & Data Vital Signs (Past 12 Hours) Vital Signs Temp Pulse Pulse Resp BP Pulse Ox O2 Del Method 07/01/24 07:09 36.3 C L 96 H 20 139/82 95 Room Air 06/30/24 21:43 36.8 C 96 H 18 131/78 94 Room Air Laboratory Results 07/01/24 08:36 07/01/24 08:36 INR 1.3 PG Care Time/CCT Total # of Minutes Spent Total Time Spent with Patient: Total time spent is greater than 50% in coordination of care (as documented) at patient's floor/unit and/or counseling patient: Coding Level of Care Code 24697 SUB INP/OBS CARE 2/35MIN Diagnoses Radiation proctitis K62.7 End stage kidney disease N18.6 S/P AVR Z95.2 Acute metabolic encephalopathy G93.41 Adrenal insufficiency E27.40 CHF (congestive heart failure) I50.9 Stage III pressure sore L89.93
[2024-07-01 09:48] LABS: Hematocrit (blood only) 30.3 % (42.0-52.0); Hemoglobin 9.7 g/dl (14.0-18.0); Mean Corpuscular Hemoglobin 31.2 pg (25.0-34.0); Mean Corpuscular Volume 97.4 fL (80.0-100.0); Mean Platelet Volume 10.9 fL (9.4-12.4); Platelet Count 92 K/uL (130-400); RDW Coefficient of Variation 20.4 % (11.5-14.5); RDW Standard Deviation 72.7 fL (36.4-46.3); Red Blood Count 3.11 M/uL (4.70-6.10); White Blood Count 5.86 K/ul (4.8-10.8)
[2024-07-01 09:52] LABS: Calcium 8.8 mg/dl (8.6-10.3); Creatinine Clr Calc Pharmacy 18.7 ml/min; Potassium 3.8 mmol/L (3.5-5.1)
[2024-07-01 10:11] LABS: INR 1.3 (0.9-1.1); Prothrombin Time 13.6 Seconds (9.0-12.0)
--- NOTE | 2024-07-01 11:12 | Nephrology Progress Note ---
Date of Service July 01, 2024 Assessment & Plan (1) End stage kidney disease: (2) Anemia: (3) Generalized weakness: (4) Recurrent right pleural effusion: Plan 79-year-old male with h/o ESKD and h/o stage 4 CKD with baseline creatinine 2.0 mg/dl dating back to at least 08/30. He was hospitalized at [facility] 2 months ago for hepatorenal syndrome and required initiation of HD but stopped, had R IJ TCC in place. He was then admitted at [facility] on 06/2024 with gross hematuria, AMS INR 13 and creatinine 2.0. Renal ultrasound negative for hydronephrosis. Kidney function continued to worsen with oliguria and no improvement in mental status and he was restarted on HD on 05/27/24 for oliguric VINICIUS. He remains dialysis dependent for > a month, no sign of renal recovery, noted to have sharp rise in creatinine in between dialysis. Continue on maintenance hemodialysis, currently blood pressure, electrolyte, volume status acceptable. --dialysis tomorrow and then continue on Friday, Friday, Friday dialysis. --Considering prior history of recurrent pleural effusion and some conversational dyspnea this morning, recommend repeating chest x-ray. --Dose medications for eGFR less than 10 --LANDEN with HD --Left arm nephrology precaution for possible AV fistula in future. --waiting on implementation coordinator care facility discharge. Admission and Anticipated Discharge Date Admission Date: May 18, 2024 Salinas Cobos was seen and evaluated this morning. He was complaining of some pain in his buttock area with history of decubitus ulcer and diarrhea since yesterday with stool incontinence. Noted to have some conversational dyspnea. Blood pressure stable. Review of Systems Review of Systems: Detailed review of system was done and denied any symptoms. Physical Exam Constitutional: WD/WN, vitals as above + ill appearing; no acute distress Eyes: + anicteric sclerae Respiratory: Auscultation: + diminished lung sounds dyspnea Cardiovascular: RRR, no murmur, no edema Skin: + turgor decreased and + skin atrophy; n o ulcers Neurologic: awake Results & Data Vital Signs (Past 12 Hours) Vital Signs Temp Pulse Resp BP Pulse Ox O2 Del Method 07/01/24 07:09 36.3 C L 96 H 20 139/82 95 Room Air PG Care Time/CCT Total # of Minutes Spent Total Time Spent with Patient: Total time spent is greater than 50% in coordination of care (as documented) at patient's floor/unit and/or counseling patient: Coding Level of Care Code 48832 SUB INP/OBS CARE 235MIN Diagnoses End stage kidney disease N18.6 Anemia D64.9 Anemia type: unspecified type Generalized weakness R53.1 Recurrent right pleural effusion J90 (2) Anemia Anemia type: unspecified type Qualified Code(s): D64.9 - Anemia, unspecified
[2024-07-01] MEDS: MIDODRINE HCL 2.5 MG TAB PO SCH (11:58)
--- NOTE | 2024-07-01 16:41 | XRay Report ---
EXAM: Radiograph of the Chest 1 View INDICATION: Dyspnea. TECHNIQUE: Frontal view of the chest. COMPARISON: 06/11/2024 FINDINGS: Lungs and pleural spaces: There is increased vascular congestion and pulmonary edema. Stable small bilateral pleural effusions. Stable consolidation in the right lung base and minimal patchy density in the left base. No pneumothorax. Heart: Stable large cardiac shadow. Mediastinum: Normal contour. Bones/joints: No fracture, erosion or dislocation. Soft tissues: No abnormality noted. No radiopaque foreign body noted. Tubes, lines and devices: Right internal jugular central catheter terminates approximately 4 cm distal to the cavoatrial junction unchanged. Upper abdomen: No abnormality noted. IMPRESSION: Worsening CHF and/or pneumonia with stable consolidation in the right lung base. Consider component of mucous plugging. ACT 112: Negative or not required by law. Electronically signed by Tamara Valentine 07-01-2024 4:40 PM
[2024-07-01 19:50] LABS: Adenovirus PCR Not Detected (NotDetected); Bordetella parapertussis PCR Not Detected (NotDetected); Bordetella pertussis PCR Not Detected (NotDetected); Chlamydia pneumoniae PCR Not Detected (NotDetected); Coronavirus 229E PCR Not Detected (NotDetected); Coronavirus CoV-2 (COVID19)PCR Not Detected (NotDetected); Coronavirus HKU1 PCR Not Detected (NotDetected); Coronavirus NL63 PCR Not Detected (NotDetected); Coronavirus OC43PCR Not Detected (NotDetected); Human Metapneumovirus PCR Not Detected (NotDetected); Influenza A PCR Not Detected (NotDetected); Influenza B PCR Not Detected (NotDetected); Mycoplasma pneumoniae PCR Not Detected (NotDetected); Parainfluenza Virus 1 PCR Not Detected (NotDetected); Parainfluenza Virus 2 PCR Not Detected (NotDetected); Parainfluenza Virus 3 PCR Not Detected (NotDetected); Parainfluenza Virus 4 PCR Not Detected (NotDetected); Respiratory Syncytial VirusPCR Not Detected (NotDetected); Rhinovirus/Enterovirus PCR DETECTED (NotDetected)
[2024-07-02 05:57] LABS: Hematocrit (blood only) 29.9 % (42.0-52.0); Hemoglobin 9.6 g/dl (14.0-18.0); Mean Corpuscular Hemoglobin 31.2 pg (25.0-34.0); Mean Corpuscular Hgb Conc 32.1 g/dL (32.0-36.0); Mean Corpuscular Volume 97.1 fL (80.0-100.0); Mean Platelet Volume 10.6 fL (9.4-12.4); Platelet Count 104 K/uL (130-400); RDW Coefficient of Variation 20.4 % (11.5-14.5); RDW Standard Deviation 72.5 fL (36.4-46.3); Red Blood Count 3.08 M/uL (4.70-6.10); White Blood Count 5.63 K/ul (4.8-10.8)
[2024-07-02 06:12] LABS: BUN Creatinine Ratio 22.8 (10-20); Bilirubin Direct 0.4 mg/dl (0-0.2); Bilirubin,Total 1.1 mg/dl (0.2-1.0); Creatinine Clr Calc Pharmacy 17.8 ml/min; Potassium 3.9 mmol/L (3.5-5.1); Total Protein 6.5 gm/dl (6.0-8.3)
--- NOTE | 2024-07-02 07:56 | Hospitalist Progress Note ---
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 Radiation proctitis noted with oozing on contact or air. APC done but patient had ulceration still present from last APC and was oozing on arrival at flex sig GI consulted -- Patient is at high risk for rebleeding as his rectum is friable with ulcerated radiation proctitis Cardiology consulted -- increased stroke risk without chronic anticoagulation therapy, but in the setting of ongoing GI bleed with profound anemia, would continue to hold anticoagulation for now If in the future his bleeding risk improves, would consider resuming anticoagulation therapy at that time Hold all anticoagulation for now, ensure stools soft. Continue PPI BID Hgb 9.6 stable and no significant bleeding at present Plt 104, will plan for ASA 81mg in AM if remains stable Lactulose increased to TID given elevated ammonia 83 Wound RN notified for f/u exam for sacral wound. cdiff testing if needed ?marvin if needing to keep area clean (2) CHF (congestive heart failure): Plan: Chronic HFpEF, s/p AVR but not on anticoagulation due to cirrhosis/coagulopathy and h/o GIB chronically Echo 02/29/2024 -- EF 50 to 55%, moderate dilation of RV, LA, RA, mechanical aortic valve in place, trace aortic regurgitation, severe tricuspid regurgitation, diastolic dysfunction grade 3 Metoprolol and Bumex on HOLD/discontinued due to hypotension and VINICIUS Continue HD for volume management as above and planning for 3x/wk at md and will need coordinated with SNF/rehab CXR evening 07/01 with worsened CHF and/or pneumonia, consolidation R lung base, ?mucus plugging. IS ordered/encouraged. Biofire remains with enterovirus. Metoprolol 12.5mg x 1 for elevated HR, permanent afib. Will check mag level to ensure replete --> consideration for metoprolol 12.5mg BID if BPs tolerate/allow given midodrine use Will check repeat C2V following HD and hopefully able to attempt more UF with HD. (3) End stage kidney disease: Plan: Presented with creatinine of 2 at time of admission, baseline creatinine <2 Was hospitalized for nearly a month at [facility] in fall 2023 and was started on HD during the hospitalization. Per records, had hepatorenal syndrome while in [facility] and has intermittently req HD this admission and now on 3x/wk schedule. MELD 23, poor prognosis Midodrine for BP support/hepatorenal syndrome --> DECREASED MIDODRINE to 5mg TID evening 07/01 CXR with concerns for volume overload/worsened CHF. HD planned for today, attempt to remove more with UF. Rate control as above Appreciate continued assistance/recs from Nephrology (4) S/P AVR: Plan: Mechanical aortic valve(per discussion w/ daughter previously, Maicol's INR was >12 during hospitalization at [place] prior month) Anticoagulation held secondary to GI bleed requiring multiple blood transfusions Currently unable to safely add antiplatelet therapy secondary to low platelet count If platelet count does improved to over 100,000, consider adding aspirin 81 mg p.o. daily --currently 102 and will plan to start aspirin 81mg in AM if remaining stable>100 (5) Acute metabolic encephalopathy: Plan: Ongoing, waxing/waning Likely multifactorial cause: toxic effects from seroquel and benzos (both stopped on 05/12), acidosis and uremia, rhinovirus infection and probable bacterial pneumonia; MRI brain negative Continue delirium precautions Continue treating ongoing infections Lactulose continued, is moving bowels. ammonia checked/elevated and lactulose increased to TID for now. Remains on rifaximin DId give Cefepime IV last week for +UA/cx however discussed prior w/ pharmacy and strongly felt colonized and was stopped. Notable flomax placed on hold at that time as marvin was placed but does not appear to have any increased retention at this time and will avoid resuming to prevent BP issues given on midodrine for BP support/hepatorenal syndrome Continue supportive care, frequent orientation encouraged with wake/sleep schedules. 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 Daughter reports patient had steroids while in [place] Cosyntropin stim test this admission -- Did not pass. Did not stim to >18. Baseline cortisol was low at 3 Initially on dexamethasone and transitioned to hydrocortisone 15mg/5mg and BP stable on such and will need rx at dc (7) Stage III pressure sore: Plan: Stage III sacral wound, suspect secondary to extended period supine in bed Butt paste ordered. Encouraged to get out of bed to both help wound and prevent worsening weakness/immobilization/etc. Continue wound care, waffle cushion, frequent repositioning Asked wound care for re-eval/recommendations given slightly worsened appearance Plan VTE PPx: Dante hose/SCDs. Chemoproph avoided given GI bleeding/transfusions required. Monitor for aspirin daily given valve/stroke risk if Plt >100k if remains stable in AM CODE STATUS: DNR/DNI Dispo: ongoing inpatient stay, HD today for UF/CHF. Continue reduced midodrine. Hydrocortisone for adrenal insufficiency Metoprolol x 1 for HR and if BPs remain stable will consider 12.5mg BID. Lactulose increased for elevated ammonia. Repeat wound RN consult. Admission and Anticipated Discharge Date Admission Date: May 18, 2024 Supervising Physician Co-Signing Physician Notes The patient was not seen by me. The chart was reviewed. Case discussed with ROBERT Mccallum. Agree with assessment and plan Subjective Eval later this morning in HD. Knows year 2023, just had [place]. Denies SOB but does appear volume overloaded and fatigued today. Denies SOB/CP, as well as palpitations however discussed HR elevation and asking RN to provide small dose of metoprolol to assist with HR for afib and hopefully able to pull more fluid off with HD. Ammonia elevated, lactulose increased for now. Wound RN to follow up on sacral wound, slightly worsened. May need to consider Marvin to keep area dry if having leakage. Decent appetite reported. Physical Exam 2 Physical Exam: General: 79 male sitting up in bed in HD unit, NAD remains alert to person, knows in hospital and year 2023/recent [place] HEENT: head atraumatic, normocephalic, mm m, trachea midline Resp: no tachypnea/cough, even/unlabored but diminished in the bases, no wheezing/rales, on room air 95% CV: RRR, harsh murmur c/w mechanical valve, no pedal edema but edema to thigh/sacrum GI: +BS throughout, less distension/softer, no tenderness/guarding : no marvin MSK/Neuro: nonfocal, generalized weakness, answering questions appropriately, jelly maker strength equal Skin: sacrum w/ excoriations, slight worsening of stage III pressure sore to superior aspect, no active purulent drainage Results & Data Results & Data Vital Signs (Past 12 Hours) Vital Signs Temp Pulse Resp BP Pulse Ox O2 Del Method 07/01/24 20:35 Room Air 07/01/24 20:35 36.5 C 76 16 146/73 H 93 Room Air Laboratory Results 07/02/24 05:40 07/02/24 05:40 Diagnostic Findings Chest X-Ray 07/01/24 15:06 EXAM: Radiograph of the Chest 1 View INDICATION: Dyspnea. TECHNIQUE: Frontal view of the chest. COMPARISON: 06/11/2024 FINDINGS: Lungs and pleural spaces: There is increased vascular congestion and pulmonary edema. Stable small bilateral pleural effusions. Stable consolidation in the right lung base and minimal patchy density in the left base. No pneumothorax. Heart: Stable large cardiac shadow. Mediastinum: Normal contour. Bones/joints: No fracture, erosion or dislocation. Soft tissues: No abnormality noted. No radiopaque foreign body noted. Tubes, lines and devices: Right internal jugular central catheter terminates approximately 4 cm distal to the cavoatrial junction unchanged. Upper abdomen: No abnormality noted. IMPRESSION: Worsening CHF and/or pneumonia with stable consolidation in the right lung base. Consider component of mucous plugging. ACT 112: Negative or not required by law. Electronically signed by Tamara Valentine 07-01-2024 4:40 PM PG Care Time/CCT Total # of Minutes Spent Total Time Spent with Patient: Total time spent is greater than 50% in coordination of care (as documented) at patient's floor/unit and/or counseling patient: Coding Level of Care Code 13611 SUB INP/OBS CARE 3/50MIN Diagnoses Radiation proctitis K62.7 CHF (congestive heart failure) I50.9 End stage kidney disease N18.6 S/P AVR Z95.2 Acute metabolic encephalopathy G93.41 Adrenal insufficiency E27.40 Stage III pressure sore L89.93
[2024-07-02] MEDS: LACTULOSE SYRUP 30 GM/45 ML UDP PO SCH (08:40)
--- NOTE | 2024-07-02 11:05 | Nephrology Progress Note ---
Date of Service July 02, 2024 Assessment & Plan (1) End stage kidney disease: (2) Anemia: (3) Generalized weakness: (4) Recurrent right pleural effusion: Plan 79-year-old male with h/o ESKD and h/o stage 4 CKD with baseline creatinine 2.0 mg/dl dating back to at least 08/30. He was hospitalized at [facility] 2 months ago for hepatorenal syndrome and required initiation of HD but stopped, had R IJ TCC in place. He was then admitted at [facility] on 06/2024 with gross hematuria, AMS INR 13 and creatinine 2.0. Renal ultrasound negative for hydronephrosis. Kidney function continued to worsen with oliguria and no improvement in mental status and he was restarted on HD on 05/27/24 for oliguric VINICIUS. He remains dialysis dependent for > a month, no sign of renal recovery, noted to have sharp rise in creatinine in between dialysis. Continue on maintenance hemodialysis, currently blood pressure, electrolyte, volume status acceptable. --Tolerating dialysis but blood pressure running low, will decrease the UF to 1.5 L. --Dose medications for eGFR less than 10 --LANDEN with HD --Left arm nephrology precaution for possible AV fistula in future. --waiting on halfway care facility discharge. Admission and Anticipated Discharge Date Admission Date: May 18, 2024 Subjective Papito was seen and evaluated during dialysis this morning. Blood pressure was running low but he denied any symptoms. Continues to have some conversational dyspnea. Review of Systems Review of Systems: Detailed review of system was done and denied any symptoms. Physical Exam Constitutional: WD/WN, vitals as above + ill appearing; no acute distress Eyes: + anicteric sclerae Respiratory: Auscultation: + diminished lung sounds and + crackles dyspnea Cardiovascular: RRR, no murmur, no edema Skin: + turgor decreased and + skin atrophy; n o ulcers Neurologic: awake Results & Data Vital Signs (Past 12 Hours) Vital Signs Temp Pulse Pulse Resp BP BP Pulse Ox 07/02/24 10:30 106 H 103/73 07/02/24 10:00 103 H 126/85 07/02/24 09:30 115 H 130/99 07/02/24 09:24 108 H 123/85 07/02/24 09:21 36.5 C 89 07/02/24 08:03 36.3 C L 106 H 20 155/87 H 92 O2 Del Method 07/02/24 10:30 07/02/24 10:00 07/02/24 09:30 07/02/24 09:24 07/02/24 09:21 07/02/24 08:03 Room Air PG Care Time/CCT Total # of Minutes Spent Total Time Spent with Patient: Total time spent is greater than 50% in coordination of care (as documented) at patient's floor/unit and/or counseling patient: Coding Level of Care Code 80180 SUB INP/OBS CARE 2/35MIN Diagnoses End stage kidney disease N18.6 Anemia D64.9 Anemia type: unspecified type Generalized weakness R53.1 Recurrent right pleural effusion J90 (2) Anemia Anemia type: unspecified type Qualified Code(s): D64.9 - Anemia, unspecified
[2024-07-02] MEDS: METOPROLOL TARTRATE 25 MG TAB PO ONE (11:27)
[2024-07-02] MEDS: METOPROLOL TARTRATE 25 MG TAB PO STA (11:28)
--- NOTE | 2024-07-02 13:15 | XRay Report ---
XR chest 2V PA/lateral CLINICAL HISTORY: f/u CHF vs pneumonia TECHNIQUE: 2 views of the chest were obtained. Comparison: Comparison is made to chest radiograph 07/01/2024 FINDINGS: Lines and tubes are stable. Cardiomegaly is noted. The aortic arch is calcified. There is prominence and cephalization of the vasculature with Tay B lines seen. Bibasilar airspace opacities are uncha nged. Small bilateral pleural effusions are seen. IMPRESSION: 1. Cardiomegaly and moderate pulmonary edema. 2. Stable airspace opacities compatible with alveolar edema versus. ACT 112: Negative or not required by law. Electronically signed by: Toni Novak M.D. 07/02/2024 1:14 PM
[2024-07-02] MEDS: ASPIRIN 81 MG ECTAB PO SCH (18:36)
[2024-07-02] MEDS: METOPROLOL TARTRATE 25 MG TAB PO SCH (21:57)
[2024-07-02] MEDS: BUMETANIDE 1 MG TAB PO ONE (22:08)
--- NOTE | 2024-07-02 23:09 | Ultrasound Report ---
Exam(s): US ABDOMEN LIMITED EXAM: US Abdomen Limited, Right Upper Quadrant CLINICAL HISTORY: Reason for exam: eval volume ascites, ?need for para. TECHNIQUE: Real-time ultrasound of the right upper quadrant with image documentation. COMPARISON: CT 05/18/2024 FINDINGS: Liver: Nodular contour of the liver consistent with cirrhosis. Gallbladder: Gallbladder is filled with stones and debris. Largest measures 8 mm. Negative Chao's sign. Common bile duct: Unremarkable as visualized. No stones. Pancreas: Pancreas is obscured. Right kidney: Unremarkable. No hydronephrosis. Free fluid: Ascites. IMPRESSION: 1. Cholelithiasis. 2. Nodular contour of the liver consistent with cirrhosis. 3. Ascites. Electronically signed by: Demond Ho MD 07/02/24 23:09 PM
[2024-07-03 06:03] LABS: Basophils # (auto) 0.02 K/uL (0.00-0.20); Basophils % (auto) 0.4 %; Eosinophils # (auto) 0.19 K/uL (0.00-0.50); Eosinophils % (auto) 3.5 %; Hematocrit (blood only) 29.3 % (42.0-52.0); Hemoglobin 9.5 g/dl (14.0-18.0); Immature Granulocytes # (auto) 0.02 K/uL (0.01-0.20); Immature Granulocytes % (auto) 0.4 %; Lymphocytes % (auto) 5.5 %; Mean Corpuscular Hemoglobin 31.5 pg (25.0-34.0); Mean Corpuscular Hgb Conc 32.4 g/dL (32.0-36.0); Mean Platelet Volume 10.5 fL (9.4-12.4); Monocytes # (auto) 0.61 K/uL (0.11-0.59); Monocytes % (auto) 11.2 %; Neutrophils # (auto) 4.31 K/uL (1.40-6.50); Platelet Count 110 K/uL (130-400); RDW Coefficient of Variation 20.1 % (11.5-14.5); RDW Standard Deviation 71.6 fL (36.4-46.3); Red Blood Count 3.02 M/uL (4.70-6.10); White Blood Count 5.45 K/ul (4.8-10.8)
[2024-07-03 06:19] LABS: Albumin Level 3.1 gm/dl (3.4-5.0); Bilirubin Direct 0.4 mg/dl (0-0.2); Bilirubin,Total 1.2 mg/dl (0.2-1.0); Magnesium 1.8 mg/dl (1.7-2.4); Total Protein 6.4 gm/dl (6.0-8.3)
[2024-07-03 06:26] LABS: Anisocytosis Present; Polychromasia 2+
[2024-07-03 06:29] LABS: INR 1.3 (0.9-1.1); Prothrombin Time 14.1 Seconds (9.0-12.0)
[2024-07-03] MEDS: BUMETANIDE 1 MG TAB PO SCH (07:50)
--- NOTE | 2024-07-03 07:53 | Hospitalist Progress Note ---
Date of Service July 03, 2024 Assessment & Plan (1) CHF (congestive heart failure): Plan: Chronic HFpEF, s/p AVR but not on anticoagulation due to cirrhosis/coagulopathy and h/o GIB chronically Echo 02/29/2024 -- EF 50 to 55%, moderate dilation of RV, LA, RA, mechanical aortic valve in place, trace aortic regurgitation, severe tricuspid regurgitation, diastolic dysfunction grade 3 Metoprolol and Bumex held/discontinued 2nd to hypotension/VINICIUS Nephrology on consult and undergoing HD for volume management 1.5 UF on 07/02, was eval in unit and HR elevated and metoprolol 12.5mg PO provided. EKG obtained noting afib. Plt were >100 and aspirin 81mg daily started given high risk for stroke CXR noting worsened CHF and/or PNA, biofire remains enterovirus but no WBC elevation/fever and suspect ongoing 2nd to volume status and possible afib w/ elevated rates. Procal decreased w/o abx Discussed w/ nephrology afternoon 07/02 in ED and resumed metoprolol 12.5mg PO BID for rate control, improved/stable Midodrine has been decreased to 5mg TID w/ stable BP - continue Undergoing HD for today, attempting to pull off additional IVF -- Bumex 2mg PO provided last evening, however notable patient w/ hx urethral stricture and prior flomax held to prevent hypotension as had marvin placed but had been removed -- Ordered to place new and 300cc urine drained and nephrology also ordered 4mg IV bumex w/ plans to continue 2mg PO daily. 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 Radiation proctitis noted with oozing on contact or air. APC done but patient had ulceration still present from last APC and was oozing on arrival at flex sig GI consulted -- Patient is at high risk for rebleeding as his rectum is friable with ulcerated radiation proctitis Cardiology consulted -- increased stroke risk without chronic anticoagulation therapy, but in the setting of ongoing GI bleed with profound anemia, would continue to hold anticoagulation for now. Rec plan if plt >100 to resume aspirin. Continues to hold all anticoagulation, continues PPI BID. ASA started 07/02 as above and plt function stable 110. Hgb stable 9.5 No bleeding w/ BMs reported and remains on 81mg daily and will monitor Lactulose increased to TID for ammonia, improved and continued. cdiff negative (3) End stage kidney disease: Plan: Presented with creatinine of 2 at time of admission, baseline creatinine <2 Was hospitalized for nearly a month at [facility] in fall 2023 and was started on HD during the hospitalization. Per records, had hepatorenal syndrome while in [facility] and has intermittently req HD this admission and now on 3x/wk schedule. MELD 23, poor prognosis Midodrine for BP support/hepatorenal syndrome --> DECREASED MIDODRINE to 5mg TID evening 07/01 HD as above, repeat HD planned for 07/03 (4) S/P AVR: Plan: Mechanical aortic valve(per discussion w/ daughter previously, Maicol's INR was >12 during hospitalization at [place] prior month) Anticoagulation held secondary to GI bleed requiring multiple blood transfusions Currently unable to safely add antiplatelet therapy secondary to low platelet count As above, planned for aspirin if Plt >100k, and given afib on EKG/exam 07/02 was started and plt remain stable 110 Repeat ECHO pending (5) Acute metabolic encephalopathy: Plan: Ongoing, waxing/waning Likely multifactorial cause: toxic effects from seroquel and benzos (both stopped on 05/12), acidosis and uremia, rhinovirus infection and probable bacterial pneumonia; MRI brain negative Continue delirium precautions Continue treating ongoing infections Lactulose continued, is moving bowels. ammonia checked/elevated and lactulose increased to TID for now. Remains on rifaximin DId give Cefepime IV last week for +UA/cx however discussed prior w/ pharmacy and strongly felt colonized and was stopped. Notable flomax placed on hold at that time as marvin was placed but does not appear to have any increased retention at this time and will avoid resuming to prevent BP issues given on midodrine for BP support/hepatorenal syndrome Suspect ongoing metabolic encephalopathy 2nd to elevated ammonia/volume overload status however cannot r/o CVA however given not able to be on anticoagulation. Have started/continued aspirin and continues on such US abd noting ongoing cirrhosis, no volume noted but can consider para if needed but did not seem overly painful on exam Continue supportive care, frequent orientation encouraged with wake/sleep schedules. 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 Daughter reports patient had steroids while in [facility] stim test this admission -- Did not pass. Did not stim to >18. Baseline cortisol was low at 3 Initially on dexamethasone and transitioned to hydrocortisone 15mg/5mg and BP stable on such and will need rx at dc (7) Stage III pressure sore: Plan: Stage III sacral wound, suspect secondary to extended period supine in bed Butt paste ordered. Encouraged to get out of bed to both help wound and prevent worsening weakness/immobilization/etc. Continue wound care, waffle cushion, frequent repositioning Asked wound care for re-eval/recommendations given slightly worsened appearance Plan VTE PPx: Zuly hose/SCDs. Chemoproph avoided given GI bleeding/transfusions required. Aspirin has been started given high stroke risk. Dispo: ongoing inpatient stay, HD today for UF/CHF. Continue reduced midodrine. Hydrocortisone for adrenal insufficiency. Inc lactulose to ensure continued clearance of ammonia. metoprolol 12.5mg BID, f/u echo. consideration to switch to succinate but will hold off until echo back. Admission and Anticipated Discharge Date Admission Date: May 18, 2024 Supervising Physician Co-Signing Physician Notes The patient was not seen by me. The chart was reviewed. Case discussed with ROBERT Mccallum. Agree with assessment and plan Subjective gabi this morning, sitting up in bed. moaning, was asssited to feed breakfast. MM appear slightly dry on exam but abd distension/zuly stockings in place but increased edema to thighs/abdomen. Asked if pain with deep breathing, he attempted several breaths/denied pain with such. Was to be provided IS yesterday, procal decreased on follow up check and no leukocytosis/fever for abx for CXR and suspect more from volume overload. Was discussed w/ family last evening, ECHO pending for eval of EF/valvular disease but will continue metoprolol for now/hopeful transition to succinate for rate control. 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 Skin: sacrum w/ excoriations, slight worsening of stage III pressure sore to superior aspect, no active purulent drainage Results & Data Results & Data Vital Signs (Past 12 Hours) Vital Signs Temp Pulse Resp BP Pulse Ox O2 Del Method 07/03/24 06:52 36.4 C L 83 16 144/79 H 92 Room Air 07/02/24 21:55 36.6 C 96 H 16 135/70 94 Room Air 07/02/24 21:55 Room Air Laboratory Results 07/03/24 05:42 07/03/24 05:42 Mag 1.8 Diagnostic Findings Abdomen Ultrasound 07/02/24 17:34 Exam(s): US ABDOMEN LIMITED EXAM: US Abdomen Limited, Right Upper Quadrant CLINICAL HISTORY: Reason for exam: eval volume ascites, ?need for para. TECHNIQUE: Real-time ultrasound of the right upper quadrant with image documentation. COMPARISON: CT 05/18/2024 FINDINGS: Liver: Nodular contour of the liver consistent with cirrhosis. Gallbladder: Gallbladder is filled with stones and debris. Largest measures 8 mm. Negative Chao's sign. Common bile duct: Unremarkable as visualized. No stones. Pancreas: Pancreas is obscured. Right kidney: Unremarkable. No hydronephrosis. Free fluid: Ascites. IMPRESSION: 1. Cholelithiasis. 2. Nodular contour of the liver consistent with cirrhosis. 3. Ascites. Electronically signed by: Demond Ho MD 07/02/24 23:09 PM Chest X-Ray 07/03/24 07:00 EXAM: XR chest 1V portable CLINICAL HISTORY: Routine morning portable for follow up. TECHNIQUE: X-ray image of the chest was obtained in 1 view: Frontal projection. COMPARISON: Prior X-ray dated 06/11/2024. FINDINGS: Right CVL in situ. Pulmonary Parenchyma: Unchanged air space opacities in bilateral lungs (rightleft) and prominent bilateral parahilar markings. Unchanged right pleural effusion. Heart and Mediastinum: Cardiomegaly. Aortic knuckle calcification. No mediastinal widening or masses. No hilar or mediastinal lymphadenopathy. Bony Thorax: Sternotomy sutures. Bony thorax appears intact without fractures or deformities. Soft Tissues: Soft tissues overlying the chest wall are unremarkable. IMPRESSION: 1. Right CVL in situ. 2. Cardiomegaly. 3. Unchanged air space opacities in bilateral lungs (rightleft) and prominent bilateral parahilar markings, likely infective vs pulmonary edema. Clinical and lab correlation is advised. 4. Unchanged right pleural effusion. Electronically signed by Jeffery Saleh 07-03-2024 08:24 AM PG Care Time/CCT Total # of Minutes Spent Total Time Spent with Patient: Total time spent is greater than 50% in coordination of care (as documented) at patient's floor/unit and/or counseling patient: Coding Level of Care Code 21716 SUB INP/OBS CARE 3/50MIN Diagnoses CHF (congestive heart failure) I50.9 Radiation proctitis K62.7 End stage kidney disease N18.6 S/P AVR Z95.2 Acute metabolic encephalopathy G93.41 Adrenal insufficiency E27.40 Stage III pressure sore L89.93
--- NOTE | 2024-07-03 08:24 | XRay Report ---
EXAM: XR chest 1V portable CLINICAL HISTORY: Routine morning portable for follow up. TECHNIQUE: X-ray image of the chest was obtained in 1 view: Frontal projection. COMPARISON: Prior X-ray dated 06/11/2024. FINDINGS: Right CVL in situ. Pulmonary Parenchyma: Unchanged air space opacities in bilateral lungs (rightleft) and prominent bilateral parahilar markings. Unchanged right pleural effusion. Heart and Mediastinum: Cardiomegaly. Aortic knuckle calcification. No mediastinal widening or masses. No hilar or mediastinal lymphadenopathy. Bony Thorax: Sternotomy sutures. Bony thorax appears intact without fractures or deformities. Soft Tissues: Soft tissues overlying the chest wall are unremarkable. IMPRESSION: 1. Right CVL in situ. 2. Cardiomegaly. 3. Unchanged air space opacities in bilateral lungs (rightleft) and prominent bilateral parahilar markings, likely infective vs pulmonary edema. Clinical and lab correlation is advised. 4. Unchanged right pleural effusion. Electronically signed by Jeffery Saleh 07-03-2024 08:24 AM
[2024-07-03 08:46] LABS: BUN Creatinine Ratio 19.5 (10-20); Calcium 8.7 mg/dl (8.6-10.3); Creatinine Clr Calc Pharmacy 22.4 ml/min; Potassium 3.6 mmol/L (3.5-5.1)
--- NOTE | 2024-07-03 10:06 | Electrocardiogram Report ---
Test Reason : Blood Pressure : */* mmHG Vent. Rate : 90 BPM Atrial Rate : 89 BPM P-R Int : * ms QRS Dur : 94 ms QT Int : 420 ms P-R-T Axes : * -9 117 degrees QTcB Int : 513 ms Normal sinus rhythm with PACs Possible Old Anterolateral infarct Lateral ST abnormality consider ischemia Prolonged QT Abnormal ECG When compared with ECG of 18-May-2024 16:16, PACs are now present Confirmed by Abbie Osuna (Tolu) on 07/03/2024 10:05:59 AM Referred By: REFERRED SELF Confirmed By: Abbie Osuna
--- NOTE | 2024-07-03 11:52 | Nephrology Progress Note ---
Date of Service July 03, 2024 Assessment & Plan (1) End stage kidney disease: (2) Anemia: (3) Generalized weakness: (4) Recurrent right pleural effusion: Plan 79-year-old male with h/o ESKD and h/o stage 4 CKD with baseline creatinine 2.0 mg/dl dating back to at least 08/30. He was hospitalized at [place] 2 months ago for hepatorenal syndrome and required initiation of HD but stopped, had R IJ TCC in place. He was then admitted at [facility] on 06/2024 with gross hematuria, AMS INR 13 and creatinine 2.0. Renal ultrasound negative for hydronephrosis. Kidney function continued to worsen with oliguria and no improvement in mental status and he was restarted on HD on 05/27/24 for oliguric VINICIUS. He remains dialysis dependent for > a month, no sign of renal recovery, noted to have sharp rise in creatinine in between dialysis. Continue on maintenance hemodialysis, currently blood pressure, electrolyte acceptable but significant clinical decline noted over last 24 hours. Chest x- ray with bilateral pulmonary congestion and worsening right pleural effusion although chest x-ray this morning looks slightly better compared to the x-ray yesterday morning, had 1.5 L UF yesterday. --Bumex 4 mg IV x 1 dose now and then continue on 2 mg daily --Dose medications for eGFR less than 10 --LANDEN with HD --Left arm nephrology precaution for possible AV fistula in future. 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 Admission and Anticipated Discharge Date Admission Date: May 18, 2024 Subjective Papito was seen and evaluated this morning. There was significant clinical decline over last 24 hours, he was lethargic and obtunded, did not open eyes or answer any questions. Blood pressure has been stable, heart rate controlled. Review of Systems Review of Systems: Detailed review of system was not possible because of change in mental status. Physical Exam Constitutional: WD/WN, vitals as above + ill appearing, + altered mental status and + lethargic Respiratory: Auscultation: + diminished lung sounds and + crackles Cardiovascular: RRR, no murmur, no edema Skin: + turgor decreased and + skin atrophy; n o ulcers Neurologic: + obtunded Results & Data Vital Signs (Past 12 Hours) Vital Signs Temp Pulse Resp BP Pulse Ox O2 Del Method 07/03/24 06:52 36.4 C L 83 16 144/79 H 92 Room Air PG Care Time/CCT Total # of Minutes Spent Total Time Spent with Patient: Total time spent is greater than 50% in coordination of care (as documented) at patient's floor/unit and/or counseling patient: Coding Level of Care Code 62790 SUB INP/OBS CARE 2/35MIN Diagnoses End stage kidney disease N18.6 Anemia D64.9 Anemia type: unspecified type Generalized weakness R53.1 Recurrent right pleural effusion J90 (2) Anemia Anemia type: unspecified type Qualified Code(s): D64.9 - Anemia, unspecified
[2024-07-03] MEDS: BUMETANIDE 4 MG in SYRINGE 0 ML IV ONE (12:43)
[2024-07-04 07:15] LABS: Albumin Level 2.8 gm/dl (3.4-5.0); Bilirubin Direct 0.3 mg/dl (0-0.2); Bilirubin,Total 1.1 mg/dl (0.2-1.0); Magnesium 1.8 mg/dl (1.7-2.4); Total Protein 6.3 gm/dl (6.0-8.3)
--- NOTE | 2024-07-04 08:36 | Hospitalist Progress Note ---
Date of Service July 04, 2024 Assessment & Plan (1) CHF (congestive heart failure): Plan: Chronic HFpEF, s/p AVR but not on anticoagulation due to cirrhosis/coagulopathy and h/o GIB chronically Echo 02/29/2024 -- EF 50 to 55%, moderate dilation of RV, LA, RA, mechanical aortic valve in place, trace aortic regurgitation, severe tricuspid regurgitation, diastolic dysfunction grade 3 Metoprolol and Bumex held/discontinued 2nd to hypotension/VINICIUS Nephrology on consult and undergoing HD for volume management 1.5 UF on 07/02, was eval in unit and HR elevated and metoprolol 12.5mg PO provided. EKG obtained noting afib. Plt were >100 and aspirin 81mg daily started given high risk for stroke CXR noting worsened CHF and/or PNA, biofire remains enterovirus but no WBC elevation/fever and suspect ongoing 2nd to volume status and possible afib w/ elevated rates. Procal decreased w/o abx Discussed w/ nephrology afternoon 07/02 in ED and resumed metoprolol 12.5mg PO BID for rate control with improvement/stable HR as req 12.5mg PO x 1 in HD w/ improvement in BP but HD cut short for 800cc w/ concerns for increased volume overload requiring repeat HD on 07/03/CXR appearance Able to pull off 2.3 L w/ UF 07/03 ECHO ordered to eval reduction in EF as suspect w/ afib in HD this past week has been reduced further off his BB/diuretics--> new reduction in EF 30-35% from 50% in February Continues on added metoprolol 12.5mg PO BID, stable HR/BP on such. Monitor to increase as tolerated but is also on midodrine for BP support. Bumex 2mg PO daily ordered by nephrology. - Did have nursing place marvin given structural issues in past and is off his flomax to prevent hypotension. 300cc urine drained following Monitor weights/volume status. 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 Radiation proctitis noted with oozing on contact or air. APC done but patient had ulceration still present from last APC and was oozing on arrival at flex sig Per GI, high risk for rebleeding as rectum friable w/ ulcerated radiation proctitis. Cdiff testing negative given abx use Cards consulted during stay, increased risk w/o AC but in setting of profound anemia would continue to hold AC but rec if plt >100 to ASA 81mg daily which was done and plt stable/improved following and hgb stable 9.5 Monitor (3) End stage kidney disease: Plan: Presented with creatinine of 2 at time of admission, baseline creatinine <2 1mo hospitalization in [place] in the fall, started HD on that admission hepatorenal syndrome and intermittently req HD this admission and now getting 3x/wk w/ plans to continue Nephrology on consult Repeat HD on 07/03 for volume overload/CHF, 2.3L w/ UF Marvin remains in place, continues on started bumex 2mg PO daily Midodrine decreased to 5mg TID last week, monitor to change to HD days Appreciate continued assistance/recs from nephrology (4) Cirrhosis: Plan: Volume management per nephrology, 2.3L on 07/03 as above. US abd w/ ascites w/ increased metabolic encephalopathy (now improving) Bumex has been restarted as well as BB for rate control given hx varices and can consider succinate for new reduction in EF but w/ hypotension issues will avoid for now Continue rifaximin BID Lactulose prior increased to TID given elevated ammonia/confusion and has IMPROVED/normalized to 40. - Will decrease lactulose to BID for now but if not having 3-4BM/daily or worsened mentation may need increased/rechecked Midodrine to 5mg TID as above MELD score 23, poor prognosis (5) S/P AVR: Plan: Mechanical aortic valve(per discussion w/ daughter previously, Maicol's INR was >12 during hospitalization at [place] prior month) Anticoagulation held secondary to GI bleed requiring multiple blood transfusions Currently unable to safely add antiplatelet therapy secondary to low platelet count As above, planned for aspirin if Plt >100k, and given afib on EKG/exam 07/02 was started and plt remain stable 110 ECHO as above (6) Acute metabolic encephalopathy: Plan: Ongoing, waxing/waning Likely multifactorial cause: toxic effects from seroquel and benzos (both stopped on 05/12), acidosis and uremia, rhinovirus infection and probable bacterial pneumonia; MRI brain negative HD for CHF/cirrhosis/hepatorenal as abvoe Ammonia improved/lactulose decreased as above. continues rifaximin Cefepime IV for possible UTI last week but felt colonized and was dced. No fever/leukocytosis but will need to monitor urine if continued AMS w/ improvement in MS. Nonfocal but generlized weakness. Frequent orientation/day night schedule to be maintained. Delirium prevention precautions. 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 Daughter reports patient had steroids while in [place] Cosyntropin stim test this admission -- Did not pass. Did not stim to >18. Baseline cortisol was low at 3 Initially on dexamethasone and transitioned to hydrocortisone 15mg/5mg and BP stable on such and will need rx at dc (8) Stage III pressure sore: Plan: Stage III sacral wound, suspect secondary to extended period supine in bed Butt paste ordered. Encouraged to get out of bed to both help wound and prevent worsening weakness/immobilization/etc. Continue wound care, waffle cushion, frequent repositioning Not at point for debridement at this time and cautious w/ above but will continue to monitor. Marvin in place as well, hopefully additional benefit Plan VTE PPx: Dante hose/SCDs. Chemoproph avoided given GI bleeding/transfusions required. Aspirin has been started given high stroke risk/continued for now Dispo: continued inpatient stay, improved mental status w/ additional HD yesterday and planning for additional tx in AM. Bumex per nephrology. Lactulose decreased. Metoprolol BID. Admission and Anticipated Discharge Date Admission Date: May 18, 2024 Supervising Physician Co-Signing Physician Notes The patient was not seen by me. The chart was reviewed. Case discussed with ROBERT Mccallum. Agree with assessment and plan Subjective Evaluated around 11, sitting up in the chair, believes in [facility] but appears less confused today. Breathing much less labored and abdomen much less distended. Ammonia normalized and will back lactulose to twice daily. Marvin in place, concentrated and slightly bloody urine draining at present time. No fever. Renal function stable/improved following HD. He denies issues with cough/sputum, denies problems breathing at ths time. Discussed ECHO, will reach out to family for discussion and plan to continue current treatment with metoprolol and bumex as ordered by nephrology and marvin to remain in place at this time, hx stricture. Physical Exam 2 Physical Exam: General: 79 male sitting up in bed , NAD, appears more awake/alert today, reports he is in [facility] but much more awake/less confused today HEENT: head atraumatic, normocephalic, mm slightly dry, trachea midline Resp: no tachypnea/cough, even/unlabored but diminished in the bases, no wheezing/rales, on room air 92% CV: irregularly irregular, rates 70s, +b/l LE edema, pulses present GI: +BS, LESS ASCITES, less distension, NONTENDER : marvin with darkened/concentrated urine MSK/Neuro: nonfocal, generalized weakness, answering questions appropriately ABLE, java developer strength equal Skin: sacrum w/ excoriations, slight worsening of stage III pressure sore to superior aspect, no active purulent drainage Results & Data Results & Data Vital Signs (Past 12 Hours) Vital Signs Temp Pulse Resp BP BP Pulse Ox O2 Del Method 07/04/24 08:12 76 18 124/69 92 Room Air 07/03/24 21:30 Room Air 07/03/24 21:23 36.7 C 61 14 127/70 94 Room Air Laboratory Results 07/03/24 05:42 07/04/24 06:42 TB 1.1 DB 0.3 AST 43 ALT 26 ALP 117 Ammonia 47 Albumin 2.8 Diagnostic Findings ECHOCARDIOGRAM LV EF 30-35%. LV systolic function is moderately reduced. There is mild concentric left ventricular hypertrophy. Diastolic dysfunction, grade II, consistent with elevated LA pressure. [place] aortic mechanical valve. Trace aortic regurgitation. Compared to the prior study 02/28, the overall EF has decreased from 50% PG Care Time/CCT Total # of Minutes Spent Total Time Spent with Patient: Total time spent is greater than 50% in coordination of care (as documented) at patient's floor/unit and/or counseling patient: Coding Level of Care Code 06830 SUB INP/OBS CARE 3/50MIN Diagnoses CHF (congestive heart failure) I50.9 Radiation proctitis K62.7 End stage kidney disease N18.6 Cirrhosis K74.60 S/P AVR Z95.2 Acute metabolic encephalopathy G93.41 Adrenal insufficiency E27.40 Stage III pressure sore L89.93
[2024-07-04] MEDS: LACTULOSE SYRUP 30 GM/45 ML UDP PO SCH (08:55)
[2024-07-04 09:08] LABS: BUN Creatinine Ratio 17.7 (10-20); Calcium 8.6 mg/dl (8.6-10.3); Creatinine Clr Calc Pharmacy 27.7 ml/min; Potassium 3.7 mmol/L (3.5-5.1)
[2024-07-04] MEDS: NEPHROCAPS PO SCH (10:50)
--- NOTE | 2024-07-04 11:24 | Nephrology Progress Note ---
Date of Service July 04, 2024 Assessment & Plan (1) End stage kidney disease: (2) Anemia: (3) Generalized weakness: (4) Recurrent right pleural effusion: Plan 79-year-old male with h/o ESKD and h/o stage 4 CKD with baseline creatinine 2.0 mg/dl dating back to at least 08/30. He was hospitalized at [facility] 2 months ago for hepatorenal syndrome and required initiation of HD but stopped, had R IJ TCC in place. He was then admitted at [facility] on 06/2024 with gross hematuria, AMS INR 13 and creatinine 2.0. Renal ultrasound negative for hydronephrosis. Kidney function continued to worsen with oliguria and no improvement in mental status and he was restarted on HD on 05/27/24 for oliguric VINICIUS. He remains dialysis dependent for > a month, no sign of renal recovery, noted to have sharp rise in creatinine in between dialysis. Continue on maintenance hemodialysis, currently blood pressure, electrolyte acceptable. --Hemodialysis tomorrow, continue on Bumex 2 mg daily --Dose medications for eGFR less than 10 --LANDEN with HD --Left arm nephrology precaution for possible AV fistula in future. --still waiting on assisted care facility discharge. Admission and Anticipated Discharge Date Admission Date: May 18, 2024 Subjective Papito was seen and evaluated this morning. Much more awake, alert today, continue to be somewhat confused. Volume status improved, had extra dialysis yesterday and had 2 L UF. Ammonia level improved, other electrolyte acceptable. Blood pressure has been stable, heart rate controlled. Review of Systems Review of Systems: Detailed review of system was not possible because of change in mental status. Physical Exam Constitutional: WD/WN, vitals as above + ill appearing Respiratory: Auscultation: + diminished lung sounds Cardiovascular: RRR, no murmur, no edema Skin: + turgor decreased and + skin atrophy; n o ulcers Neurologic: awake Psychiatric: Orientation: alert and cooperative Results & Data Vital Signs (Past 12 Hours) Vital Signs Pulse Resp BP Pulse Ox O2 Del Method 07/04/24 11:01 Room Air 07/04/24 08:12 76 18 124/69 92 Room Air PG Care Time/CCT Total # of Minutes Spent Total Time Spent with Patient: Total time spent is greater than 50% in coordination of care (as documented) at patient's floor/unit and/or counseling patient: Coding Level of Care Code 00591 SUB INP/OBS CARE MIN Diagnoses End stage kidney disease N18.6 Anemia D64.9 Anemia type: unspecified type Generalized weakness R53.1 Recurrent right pleural effusion J90 (2) Anemia Anemia type: unspecified type Qualified Code(s): D64.9 - Anemia, unspecified
[2024-07-04] MEDS: SEVELAMER CARBONATE 800 MG TAB PO SCH (11:32)
--- NOTE | 2024-07-05 08:33 | Nephrology Progress Note ---
Date of Service July 05, 2024 Assessment & Plan (1) End stage kidney disease: Plan: * HD today. Will attempt 2 L UF * Continue nephrocaps * On midodrine for BP support * Monitor BMP (2) Anemia: Plan: * Mild anemia * Will provide LANDEN w/ HD treatments (3) Generalized weakness: Plan: * Mental status waxes and wanes, patient is essentially bed bound and has developed sacral decubitus ulcer. Prognosis is guarded. Consider palliative care consultation to discuss goals of care w/ family. Await discharge to SNF Admission and Anticipated Discharge Date Admission Date: May 18, 2024 Subjective Mr. Jarquin was evaluated in his hospital room this morning. He was oriented to self only. He appeared comfortable. Review of Systems Constitutional: no fever Eyes: no problem reported Ear, Nose, Mouth, Throat: no problem reported Respiratory: no dyspnea Cardiovascular: no chest pain Gastrointestinal: no abdominal pain, no nausea, no vomiting and no diarrhea/loose stools Physical Exam Constitutional: not in distress Eyes: PERRL, conjunctivae normal, anicteric sclerae ENMT: external ear and nose normal, oropharynx normal Neck: trachea midline, no thyromegaly Respiratory: normal respiratory effort, lungs clear to auscultation Cardiovascular: RRR, no murmur, no edema Gastrointestinal (Abdomen): normal bowel sounds, soft, nontender, no hepatosplenomegaly Musculoskeletal: Extremities: no cyanosis and no clubbing Skin: no rashes, warm and dry Neurologic: awake; not confused Results & Data Vital Signs (Past 12 Hours) Vital Signs Temp Pulse Resp BP Pulse Ox O2 Del Method 07/05/24 07:20 Room Air 07/05/24 07:20 36.3 C L 76 16 128/72 92 Room Air Laboratory Results Laboratory Results - last 24 hr 07/04/24 06:42 Sodium 138 Potassium 3.7 Chloride 100 Carbon Dioxide 27 Anion Gap 11 BUN 39 H Creatinine 2.20 H D Est Cr Clr Drug Dosing 27.7 eGFR 29.91 BUN/Creatinine Ratio 17.7 Glucose 81 Calcium 8.6 PG Care Time/CCT Total # of Minutes Spent Total Time Spent with Patient: Total time spent is greater than 50% in coordination of care (as documented) at patient's floor/unit and/or counseling patient: Coding Level of Care Code 35114 SUB INP/OBS CARE 3/50MIN Diagnoses End stage kidney disease N18.6 Anemia D64.9 Anemia type: unspecified type Generalized weakness R53.1 (2) Anemia Anemia type: unspecified type Qualified Code(s): D64.9 - Anemia, unspecified
--- NOTE | 2024-07-05 08:45 | Hospitalist Progress Note ---
<Statement entered by Fatuma Dukes MD - 07/05/24 15:03> Mr. Azar is well known to me from earlier this admission. He has complex multiorgan disease including renal failure requiring dialysis, cirrhosis, heart failure with newly worsened EF, waxing and waning encephalopathy with best orientation the last 50 days being oriented to self and not fully to basic situation. Prognosis remains extremely poor and he has not been well enough to remain out of the hospital since early fall. He is not strong enough to attend outpatient dialysis. Plan to readdress goals of care at this time. Date of Service July 05, 2024 Assessment & Plan (1) CHF (congestive heart failure): Plan: Chronic HFpEF, s/p AVR but not on anticoagulation due to cirrhosis/coagulopathy and h/o GIB chronically Echo 02/29/2024 -- EF 50 to 55%, moderate dilation of RV, LA, RA, mechanical aortic valve in place, trace aortic regurgitation, severe tricuspid regurgitation, diastolic dysfunction grade 3 Metoprolol and Bumex held/discontinued 2nd to hypotension/VINICIUS Nephrology on consult and undergoing HD for volume management 1.5 UF on 07/02, was eval in unit and HR elevated and metoprolol 12.5mg PO provided. EKG obtained noting afib. Plt were >100 and aspirin 81mg daily started given high risk for stroke CXR noting worsened CHF and/or PNA, biofire remains enterovirus but no WBC elevation/fever and suspect ongoing 2nd to volume status and possible afib w/ elevated rates. Procal decreased w/o abx ECHO ordered to eval reduction in EF as suspect w/ afib in HD this past week has been reduced further off his BB/diuretics --> new reduction in EF 30-35% from 50% in February HD on 07/03 for 2.3L, additional 2L UF for 07/05 Continue Metoprolol 12.5mg PO BID started for rate control/Afib, Bumex 2mg PO daily per nephrology Marvin remains in place, UOP 450cc past 24 hr, 100 today. -Would KEEP marvin in place given structural hx and sacral wound Labs pending from this morning Continue HD for volume management as above and planning for 3x/wk at dc and will need coordinated with SNF/rehab can reach back out to palliative for discussion in next day or two pending ongoing response to tx given worries for transportation to HD from facility and limited function/mobility at this time. 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 Radiation proctitis noted with oozing on contact or air. APC done but patient had ulceration still present from last APC and was oozing on arrival at flex sig Per GI, high risk for rebleeding as rectum friable w/ ulcerated radiation proctitis. Cdiff testing negative given abx use Cards consulted during stay, increased risk w/o AC but in setting of profound anemia would continue to hold AC but rec if plt >100 to ASA 81mg daily which was done and plt stable/improved following and hgb stable 9.5 however placed on hold for hematuria and will monitor Monitor (3) End stage kidney disease: Plan: Presented with creatinine of 2 at time of admission, baseline creatinine <2 1mo hospitalization in [place] in the fall, started HD on that admission hepatorenal syndrome and intermittently req HD this admission and now getting 3x/wk w/ plans to continue Nephrology on consult Repeat HD on 07/03 for volume overload/CHF, 2.3L w/ UF and 2L for today. Continues with marvin in place as above Bumex 2mg PO daily, midodrine for BP support, consider changing to HD days Appreciate continued assistance/recs from nephrology (4) Cirrhosis: Plan: Volume management per nephrology, 2.3L on 07/03 as above. US abd w/ ascites w/ increased metabolic encephalopathy (now improving) Bumex has been restarted as well as BB for rate control given hx varices and can consider succinate for new reduction in EF but w/ hypotension issues will avoid for now Continue rifaximin BID Lactulose prior increased to TID given elevated ammonia/confusion and has IMPROVED/normalized to 40. - Decreased lactulose to BID for now but only 1-2 B reported and slight increased confusion and will change back to TID and continue such for now. Midodrine to 5mg TID as above MELD score 23, poor prognosis, palliative as above for discussion pending repeat eval (5) S/P AVR: Plan: Mechanical aortic valve(per discussion w/ daughter previously, Maicol's INR was >12 during hospitalization at [place] prior month) Anticoagulation held secondary to GI bleed requiring multiple blood transfusions Currently unable to safely add antiplatelet therapy secondary to low platelet count As above, planned for aspirin if Plt >100k, and given afib on EKG/exam 07/02 was started and plt remain stable 110 ECHO as above Repeat EKG w/ SR, continue metoprolol as above. Aspirin HELD due to hematuria (got this morning) (6) Acute metabolic encephalopathy: Plan: Ongoing, waxing/waning Likely multifactorial cause: toxic effects from seroquel and benzos (both stopped on 05/12), acidosis and uremia, rhinovirus infection and probable bacterial pneumonia; MRI brain negative HD for CHF/cirrhosis/hepatorenal as abvoe Ammonia improved/lactulose decreased as above. continues rifaximin Cefepime IV for possible UTI last week but felt colonized and was dced. No fever/leukocytosis but will need to monitor urine if continued AMS w/ improvement in MS. Nonfocal but generlized weakness. Frequent orientation/day night schedule to be maintained. Delirium prevention precautions. 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 Daughter reports patient had steroids while in [place] Cosyntropin stim test this admission -- Did not pass. Did not stim to >18. Baseline cortisol was low at 3 Initially on dexamethasone and transitioned to hydrocortisone 15mg/5mg and BP stable on such and will need rx at dc (8) Stage III pressure sore: Plan: Stage III sacral wound, suspect secondary to extended period supine in bed Butt paste ordered. Encouraged to get out of bed to both help wound and prevent worsening weakness/immobilization/etc. Continue wound care, waffle cushion, frequent repositioning Not at point for debridement at this time and cautious w/ above but will continue to monitor. Marvin in place as well, hopefully additional benefit Plan VTE PPx: Dante hose/SCDs. Chemoproph avoided given GI bleeding/transfusions required. Aspirin has been started given high stroke risk/continued for now Dispo: continued inpatient stay, HD for today for additional 2L UF. Continues on bumex PO daily/marvin, metoprolol BID for HR control/CHF and will likely need to touch base w/ palliative in AM vs Friday pending status for further discussion. Lactulose increased to TID Admission and Anticipated Discharge Date Admission Date: May 18, 2024 Subjective Eval this morning, in bed, about to go to HD. Marvin with bloody urine , aspirin order placed on hold but did receive this morning. Will check ua given mental status/appearance but do note only had 2 documented BM and will increase lactulose to TID for now. Remains on RA but still slightly volume overloaded. Labs pending/not yet drawn Physical Exam 2 Physical Exam: General: 79 male sitting up in bed , NAD, slight more confusion today but appears comfortable, yes/no questions HEENT: head atraumatic, normocephalic, mm slightly dry, trachea midline Resp: no tachypnea/cough, even/unlabored but diminished in the bases, no wheezing/rales, on room air 94% CV: regular, frequent ectopy/extra beat, rates 80-90s, decreased LE edema, pulses present GI: +BS, soft/less distension, ongoing ascites, nontender : marvin draining bloody urine MSK/Neuro: generalized weakness but nonfocal, no facial droop/focal deficit Psych: alert to person, knows in hospital, not year/events Skin: sacrum w/ excoriations, slight worsening of stage III pressure sore to superior aspect, no active purulent drainage Results & Data Results & Data Vital Signs (Past 12 Hours) Vital Signs Temp Pulse Resp BP Pulse Ox O2 Del Method 07/05/24 07:20 Room Air 07/05/24 07:20 36.3 C L 76 16 128/72 92 Room Air Diagnostic Findings 07/03/24 05:42 07/04/24 06:42 PG Care Time/CCT Total # of Minutes Spent Total Time Spent with Patient: Total time spent is greater than 50% in coordination of care (as documented) at patient's floor/unit and/or counseling patient: Coding Level of Care Code 51446 SUB INP/OBS CARE 3/50MIN Diagnoses CHF (congestive heart failure) I50.9 Radiation proctitis K62.7 End stage kidney disease N18.6 Cirrhosis K74.60 S/P AVR Z95.2 Acute metabolic encephalopathy G93.41 Adrenal insufficiency E27.40 Stage III pressure sore L89.93
--- NOTE | 2024-07-05 10:48 | Electrocardiogram Report ---
Test Reason : Blood Pressure : */* mmHG Vent. Rate : 75 BPM Atrial Rate : 75 BPM P-R Int : 126 ms QRS Dur : 96 ms QT Int : 440 ms P-R-T Axes : 2 -24 114 degrees QTcB Int : 491 ms Sinus rhythm with sinus arrhythmia with occasional Premature ventricular complexes Poor R wave progression, consider anterior [place] vs. lead placement vs. LVH Nonspecific ST and T wave abnormality Abnormal ECG When compared with ECG of 02-Jul-2024 15:59, Non-specific change in ST segment in Lateral leads Confirmed by Randall Elizalde ([id number]) on 07/05/2024 10:48:03 AM Referred By: REFERRED SELF Confirmed By: Randall Elizalde
[2024-07-05] MEDS: LACTULOSE SYRUP 30 GM/45 ML UDP PO SCH (13:24)
[2024-07-05 14:53] LABS: Hematocrit (blood only) 28.9 % (42.0-52.0); Hemoglobin 9.3 g/dl (14.0-18.0); Mean Corpuscular Hemoglobin 31.1 pg (25.0-34.0); Mean Corpuscular Hgb Conc 32.2 g/dL (32.0-36.0); Mean Corpuscular Volume 96.7 fL (80.0-100.0); Mean Platelet Volume 9.9 fL (9.4-12.4); Platelet Count 143 K/uL (130-400); RDW Coefficient of Variation 19.6 % (11.5-14.5); Red Blood Count 2.99 M/uL (4.70-6.10); White Blood Count 6.63 K/ul (4.8-10.8)
[2024-07-05 15:12] LABS: Albumin Level 2.9 gm/dl (3.4-5.0); BUN Creatinine Ratio 17.3 (10-20); Calcium 8.5 mg/dl (8.6-10.3); Creatinine Clr Calc Pharmacy 32.9 ml/min; Magnesium 1.8 mg/dl (1.7-2.4); Potassium 3.8 mmol/L (3.5-5.1)
[2024-07-05] MEDS: MAGNESIUM CHLORIDE W/CALCIUM 64MG DELAYED REL TAB PO SCH (18:42)
[2024-07-06 06:44] LABS: Appearance Urine Turbid (Clear)
[2024-07-06 06:47] LABS: Bacteria Urine Automated 1+ (Negative); RBC Urine Automated >20 /hpf (0-4); WBC Urine Automated >50 /hpf (0-5)
--- NOTE | 2024-07-06 08:56 | Nephrology Progress Note ---
Date of Service July 06, 2024 Assessment & Plan (1) End stage kidney disease: Plan: * Volume status and electrolyte balance are acceptable. Will plan next HD for am * Continue nephrocaps * On midodrine for BP support * Monitor BMP (2) Anemia: Plan: * Mild anemia * Will provide LANDEN w/ HD treatments (3) Generalized weakness: Plan: * Mental status waxes and wanes, patient is essentially bed bound and has developed sacral decubitus ulcer. Prognosis is guarded. Consider palliative care consultation to discuss goals of care w/ family. Await discharge to SNF Admission and Anticipated Discharge Date Admission Date: May 18, 2024 Subjective Mr. Jarquin was evaluated in his hospital room this morning. He was oriented to self only. He appeared comfortable. Review of Systems Constitutional: no fever Eyes: no problem reported Ear, Nose, Mouth, Throat: no problem reported Respiratory: no dyspnea Cardiovascular: no chest pain Gastrointestinal: no abdominal pain, no nausea, no vomiting and no diarrhea/loose stools Physical Exam Constitutional: not in distress Eyes: PERRL, conjunctivae normal, anicteric sclerae ENMT: external ear and nose normal, oropharynx normal Neck: trachea midline, no thyromegaly Respiratory: normal respiratory effort, lungs clear to auscultation Cardiovascular: RRR, no murmur, no edema Gastrointestinal (Abdomen): normal bowel sounds, soft, nontender, no hepatosplenomegaly Musculoskeletal: Extremities: no cyanosis and no clubbing Skin: no rashes, warm and dry Neurologic: awake; not confused ([place]) Results & Data Vital Signs (Past 12 Hours) Vital Signs Temp Pulse Resp BP Pulse Ox O2 Del Method 07/06/24 07:29 36.4 C L 77 18 131/76 92 Room Air 07/05/24 22:30 Room Air Laboratory Results Laboratory Results - last 24 hr 07/05/24 07/06/24 07/06/24 14:41 06:10 08:19 WBC 6.63 5.75 RBC 2.99 L 3.00 L Hgb 9.3 L 9.3 L Hct 28.9 L 29.4 L MCV 96.7 98.0 MCH 31.1 31.0 MCHC 32.2 31.6 L RDW Std Deviation 69.0 H 71.3 H RDW Coeff of Nick 19.6 H 19.9 H Plt Count 143 140 MPV 9.9 10.1 Sodium 139 139 Potassium 3.8 3.9 Chloride 101 100 Carbon Dioxide 29 30 Anion Gap 9 9 BUN 32 H 43 H Creatinine 1.85 H D 2.44 H D Est Cr Clr Drug Dosing 32.9 25.0 eGFR 36.82 26.41 BUN/Creatinine Ratio 17.3 17.6 Glucose 147 H 96 Calcium 8.5 L 8.6 Phosphorus 3.0 Magnesium 1.8 1.9 Albumin 2.9 L Urine Color See Comment Urine Appearance Turbid A Urine pH Not Reportable Ur Specific [place] 1.020 Urine Protein Not Reportable Urine Glucose (UA) Not Reportable Urine Ketones Not Reportable Urine Blood Not Reportable Urine Nitrite Not Reportable Urine Bilirubin Not Reportable Urine Urobilinogen Not Reportable Ur Leukocyte Esterase Not Reportable Urine WBC (Auto) >50 Urine RBC (Auto) >20 U Epithel Cells (Auto) 3-5 Urine Bacteria (Auto) 1+ H Urine Yeast Present A PG Care Time/CCT Total # of Minutes Spent Total Time Spent with Patient: Total time spent is greater than 50% in coordination of care (as documented) at patient's floor/unit and/or counseling patient: Coding Level of Care Code 54625 SUB INP/OBS CARE 3/50MIN Diagnoses End stage kidney disease N18.6 Anemia D64.9 Anemia type: unspecified type Generalized weakness R53.1 (2) Anemia Anemia type: unspecified type Qualified Code(s): D64.9 - Anemia, unspecified
[2024-07-06 08:57] LABS: Hematocrit (blood only) 29.4 % (42.0-52.0); Hemoglobin 9.3 g/dl (14.0-18.0); Mean Corpuscular Hgb Conc 31.6 g/dL (32.0-36.0); Mean Platelet Volume 10.1 fL (9.4-12.4); Platelet Count 140 K/uL (130-400); RDW Coefficient of Variation 19.9 % (11.5-14.5); RDW Standard Deviation 71.3 fL (36.4-46.3); White Blood Count 5.75 K/ul (4.8-10.8)
[2024-07-06 09:11] LABS: BUN Creatinine Ratio 17.6 (10-20); Calcium 8.6 mg/dl (8.6-10.3); Magnesium 1.9 mg/dl (1.7-2.4); Potassium 3.9 mmol/L (3.5-5.1)
--- NOTE | 2024-07-06 13:46 | Communication Note ---
Date of Service: July 06, 2024 A[address] placement, no acute pall med needs and we will sign off for now. please page for re involvement if needed. no charge submitted Thank you for allowing us to participate in the ongoing care of this patient. Please page with any additional concerns. Nikole Jimenes DNP Director, Palliative Medicine
[2024-07-06 19:32] LABS: Influenza A virus by PCR Negative (Neg); Influenza B virus by PCR Negative (Neg); RSV by PCR Negative (Neg); SARS CoV2 RNA(COVID-19) Ceph NEGATIVE (Negative)
--- NOTE | 2024-07-06 19:43 | Hospitalist Progress Note ---
Date of Service July 06, 2024 Assessment & Plan (1) Encephalopathy acute: Plan: ongoing since hospital admission on 05/18/24 numerous reasons for altered MS during this prolonged hospitalization including hepatic encephalopathy, previous rhinovirus infection, UTI, toxic effects from meds, hospital delirium, etc. daughter reports mental status again worsened about 1 week ago work-up since then - negative BioFire on 07/01, negative abd u/s (no acute cholecystitis seen), normalized ammonia level on 07/04 will recheck a COVID/flu/RSV await urine cx repeat ammonia in am repat VBG in am check procal & crp in am consider diagnostic paracentesis - r/o SBP (pt moaning during the visit -- in pain??) could he be getting ill from his sacral decubitus ulcer? 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 Baseline Cr earlier this year <2. had required HD intermittently since admission and then ultimately began to need HD 3 days/week thus, has reached ESRD status appreciate nephrology assistance additional historical information -- Was hospitalized for nearly a month at [facility] this past fall 2023. Started on HD during that hospitalization. Does have right sided IJ permcath in place still. Per records had hepatorenal syndrome while in [facility]. Following his month-long stay at [place] was discharged to [facility]; stayed there for about 3 weeks. At some point either during his stay at [facility] or while at [facility] his HD was discontinued due to some renal recovery. (3) Rhinovirus infection: Plan: BioFire + on 05/30 had probable bacterial superinfection/pneumonia at that time as well and completed 7 day course of IV abx will repeat a COVID/flu/RSV today due to #1 (4) Urinary tract infection due to Enterococcus: Plan: 2nd VRE, 05/30/24 catheter-associated UTI completed 7 days of IV daptomycin (5) Urinary tract infection with hematuria: Plan: present on admission Known, underlying BPH He underwent Rezum procedure on December 05 had urethral stricture which was dilated on February 24, discharged with Marvin catheter Urologist Dr. Soto irrigated and repositioned his marvin catheter earlier this stay. Clots were evacuated. Hematuria resolved, did not require CBI At time of admission presumed to have had UTI, however urine culture from 05/15 with skin marco and urine and blood cultures from 05/18 were negative Was treated with cefepime then ceftriaxone 05/20-05/24 Developed another UTI in late May - to VRE s/p 7 day course of IV daptomycin no longer on flomax continues with marvin catheter - attempts to remove such earlier in the stay were not successful continues with gross hematuria leave marvin (6) Anemia in chronic kidney disease (CKD): Plan: transfused total of 5 units PRBCs since admission H/H stable today (7) CHF (congestive heart failure): Plan: Echo 02/29/2024 -- EF 50 to 55%, moderate dilation of RV, LA, RA, mechanical aortic valve in place, trace aortic regurgitation, severe tricuspid regurgitation, diastolic dysfunction grade 3 Most recent echo with depressed EF in the 30s etiology uncertain pt's daughter made aware volume control with HD 3 days/week most recent cxr appears to have ongoing pulmonary edema cont meto tartrate 12.5mg bid; ultimately convert back to meto succ not a candidate for Entresto, aldactone, etc. due to ERSD (8) Diabetes mellitus, type 2: Plan: Most recent A1c (02/19/2024) 5.1% Has not required any therapies (9) Cirrhosis: Plan: With hepatic encephalopathy, coagulopathy, thrombocytopenia Cont lactulose/rifaximin Cont midodrine TID for low BP No clinical evidence of SBP (no overt abd pain, etc) but consider diagnostic paracentesis in light of moaning, altered MS, etc. (10) Muscle tone increased: Plan: UMN signs on exam hepatic encephalopathy has been aggressively treated MRI brain w/o pathology MRI c-spine with C5 myelomalacia - contributing?? but no severe spinal stenosis of c-spine but the C5 issue could be contributing had neuro eval early in the admission - PSP?? if he does have PSP there is no specific treatment other than supportive care (11) Acute hepatic encephalopathy: Plan: off/on during this prolonged hospitalization cont lactulose BID or TID to have 3 BMs/day cont rifaximin BID (12) History of fractured vertebra: Plan: lower c-spine and upper t-spine see discussion above (13) Hx of aortic valve replacement, mechanical: Plan: no longer on coumadin due to prior radiation proctitis, hematuria, and coagulopathy at HIGH RISK of clotting of the valve with subsequent embolic phenomenon, etc. 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 (16) Hypothyroidism: Plan: TSH 0.5 early 06/2024 cont synthroid (17) Adrenal insufficiency: Plan: cosyntropin stim test this admission -- did not pass did not stim to >18 baseline cortisol was low at 3 cont hydrocortisone 15mg and 5mg each day per daughter's report had steroids while in [place] critical illness etc all likely to blame for secondary adrenal insufficiency (18) Radiation proctitis: Plan: one of the reasons he had his coumadin d/c earlier this year in [place] cause of radiation proctitis - prior XRT for prostate ca s/p flex sig this admission with angioectasias seen as well as XRT proctitis continues with intermittent BRBPR (19) Recurrent right pleural effusion: Plan: had thoracentesis while in [facility] 04/2024 this effusion has recurred and persists despite dialysis (20) Stage III pressure sore: Plan: appreciate wound care recs & assistance (21) End stage kidney disease: Plan: now on HD 3 days/week [facility] Plan updated pt's daughter Gloria (Gloria's cell - [phone]) extensively at bedside today tentatively scheduled to d/c to SNF later this week in [facility], but I share Verona Santiago's concerns that patient is not fit for discharge given altered MS, failure to thrive, respiratory status, numerous other issues prognosis VERY poor best option would be a comfort-based approach to his care (hospice) he is at high risk of readmission to any hospital will d/w social work tomorrow Admission and Anticipated Discharge Date Admission Date: May 18, 2024 Subjective pt's daughter present at bedside during the visit she reports her dad's "mind hasn't been there" since ~06/28 unable to have any meaningful conversation he was talking about their cat most recently (cat has been 10+ years) while asleep he seems to be having vivid dreams continues to not sleep well at night-time eating is fair per daughter during the visit he was moaning at times - pain? daughter does state he c/o his buttock decub at times Review of Systems Review of Systems: Unobtainable due to cognitive status Physical Exam Physical Exam: gen - laying in bed, altered, unable to have normal conversation; intermittently closing his eyes; moaning at times neck - mild JVD present mouth - MM dry, food present in oral cavity heart - RRR, s1 s2, no murmur; mechanical valve closure sound lungs - decreased BS right base; no wheezing; no rales; but mild tachypnea present abd - distended with ascites; BS+, NT, no HSM; soft ext - pulses 2+ b/l feet, no edema b/l vascular - permcath right upper chest clean neuro - tremor vs asterixis present; increased tone of LEs; muscle wasting pre sent Results & Data Results & Data Vital Signs (Past 12 Hours) Vital Signs Temp Pulse Resp BP Pulse Ox O2 Del Method 07/06/24 15:44 83 18 148/80 H 90 Room Air 07/06/24 12:40 36.3 C L 81 16 125/72 91 Room Air 07/06/24 08:30 Room Air Laboratory Results Laboratory Results - last 24 hr 07/06/24 07/06/24 07/06/24 06:10 08:19 18:40 WBC 5.75 RBC 3.00 L Hgb 9.3 L Hct 29.4 L MCV 98.0 MCH 31.0 MCHC 31.6 L RDW Std Deviation 71.3 H RDW Coeff of Nick 19.9 H Plt Count 140 MPV 10.1 Sodium 139 Potassium 3.9 Chloride 100 Carbon Dioxide 30 Anion Gap 9 BUN 43 H Creatinine 2.44 H D Est Cr Clr Drug Dosing 25.0 eGFR 26.41 BUN/Creatinine Ratio 17.6 Glucose 96 Calcium 8.6 Magnesium 1.9 Urine Color See Comment Urine Appearance Turbid A Urine pH Not Reportable Ur Specific [place] 1.020 Urine Protein Not Reportable Urine Glucose (UA) Not Reportable Urine Ketones Not Reportable Urine Blood Not Reportable Urine Nitrite Not Reportable Urine Bilirubin Not Reportable Urine Urobilinogen Not Reportable Ur Leukocyte Esterase Not Reportable Urine WBC (Auto) >50 Urine RBC (Auto) >20 U Epithel Cells (Auto) 3-5 Urine Bacteria (Auto) 1+ H Urine Yeast Present A SARS-CoV-2 (PCR) NEGATIVE Influenza Type A (PCR) Negative Influenza Type B (PCR) Negative RSV (RT-PCR) Negative PG Care Time/CCT Total # of Minutes Spent Total Time Spent with Patient: Total time spent is greater than 50% in coordination of care (as documented) at patient's floor/unit and/or counseling patient: Coding Level of Care Code 25485 SUB INP/OBS CARE 3/50MIN Diagnoses Encephalopathy acute G93.40 Acute kidney injury N17.9 Rhinovirus infection B34.8 Urinary tract infection due to Enterococcus N39.0; B95.2 Urinary tract infection with hematuria N39.0; R31.9 Anemia in chronic kidney disease (CKD) N18.9; D63.1 CHF (congestive heart failure) I50.9 Diabetes mellitus, type 2 E11.9 Cirrhosis K74.60 Muscle tone increased M62.89 Acute hepatic encephalopathy K76.82 History of fractured vertebra Z87.81 Hx of aortic valve replacement, mechanical Z95.2 Hx of aortic aneurysm Z86.79 Pancytopenia D61.818 Hypothyroidism E03.9 Adrenal insufficiency E27.40 Radiation proctitis K62.7 Recurrent right pleural effusion J90 Stage III pressure sore L89.93 End stage kidney disease N18.6
[2024-07-06] MEDS: ACETAMINOPHEN 500 MG TAB PO SCH (20:30)
[2024-07-06] MEDS: QUEtiapine FUMARATE 25 MG TABLET PO SCH (21:20)
[2024-07-07 07:20] LABS: Base Excess VBG 5.7 mEq/L; HCO3 VBG 29 mmol/L; Oxygen Saturation VBG 94.8 %; PCO2 VBG 35 mmHg (38-50); PO2 VBG 65 mmHg; pH VBG 7.52 (7.36-7.41)
--- NOTE | 2024-07-07 09:06 | Nephrology Progress Note ---
Date of Service July 07, 2024 Assessment & Plan (1) End stage kidney disease: Plan: * HD today. Will attempt 2 L UF * Continue nephrocaps * On midodrine for BP support * Monitor BMP (2) Anemia: Plan: * Mild anemia * Will provide LANDEN w/ HD treatments (3) Generalized weakness: Plan: * Mental status waxes and wanes, patient has been bed bound and developed sacral decubitus ulcer. Duran is again draining grossly bloody urine. Prognosis is guarded. Consider palliative care consultation to discuss goals of care w/ family. Await discharge to SNF Admission and Anticipated Discharge Date Admission Date: May 18, 2024 Subjective Mr. Jarquin was evaluated while on HD this morning. He was agitated, frequently calling out. He was oriented to self only and could not verbalize any new medical concerns Review of Systems Constitutional: no fever Eyes: no problem reported Ear, Nose, Mouth, Throat: no problem reported Respiratory: no dyspnea Cardiovascular: no chest pain Gastrointestinal: no abdominal pain, no nausea, no vomiting and no diarrhea/loose stools Physical Exam Constitutional: not in distress Eyes: PERRL, conjunctivae normal, anicteric sclerae ENMT: external ear and nose normal, oropharynx normal Neck: trachea midline, no thyromegaly Respiratory: normal respiratory effort, lungs clear to auscultation Cardiovascular: RRR, no murmur, no edema Gastrointestinal (Abdomen): normal bowel sounds, soft, nontender, no hepatosplenomegaly Musculoskeletal: Extremities: no cyanosis and no clubbing Skin: no rashes, warm and dry Neurologic: awake; not confused ([place]) Genitourinary: Duran catheter in place draining grossly bloody urine Results & Data Vital Signs (Past 12 Hours) Vital Signs Temp Pulse Resp BP Pulse Ox O2 Del Method 07/07/24 07:33 36.7 C 82 18 140/73 90 Room Air Laboratory Results Laboratory Results - last 24 hr 07/06/24 07/06/24 07/07/24 08:19 18:40 07:09 VBG pH VBG pCO2 VBG pO2 VBG HCO3 VBG O2 Saturation VBG Base Excess Sodium 139 Potassium 3.9 Chloride 100 Carbon Dioxide 30 Anion Gap 9 BUN 43 H Creatinine 2.44 H D Est Cr Clr Drug Dosing 25.0 eGFR 26.41 BUN/Creatinine Ratio 17.6 Glucose 96 Calcium 8.6 Magnesium 1.9 Ammonia C-Reactive Protein 6.07 H Procalcitonin 0.34 SARS-CoV-2 (PCR) NEGATIVE Influenza Type A (PCR) Negative Influenza Type B (PCR) Negative RSV (RT-PCR) Negative 07/07/24 07:13 VBG pH 7.52 H VBG pCO2 35 L VBG pO2 65 VBG HCO3 29 VBG O2 Saturation 94.8 VBG Base Excess 5.7 Sodium Potassium Chloride Carbon Dioxide Anion Gap BUN Creatinine Est Cr Clr Drug Dosing eGFR BUN/Creatinine Ratio Glucose Calcium Magnesium Ammonia 96.0 H C-Reactive Protein Procalcitonin SARS-CoV-2 (PCR) Influenza Type A (PCR) Influenza Type B (PCR) RSV (RT-PCR) PG Care Time/CCT Total # of Minutes Spent Total Time Spent with Patient: Total time spent is greater than 50% in coordination of care (as documented) at patient's floor/unit and/or counseling patient: Coding Level of Care Code 07199 SUB INP/OBS CARE 3/50MIN Diagnoses End stage kidney disease N18.6 Anemia D64.9 Anemia type: unspecified type Generalized weakness R53.1 (2) Anemia Anemia type: unspecified type Qualified Code(s): D64.9 - Anemia, unspecified
[2024-07-07] MEDS: EPOETIN ALFA 10000 UNIT/ML IV ONE (12:28)
[2024-07-07] MEDS: HEPARIN SOD (PORCINE) 1000 UNIT/ML IV SCH (12:28)
[2024-07-07] MEDS: [UNRECOGNIZED DRUG - OTHER] IV ONE (12:28)
[2024-07-07] MEDS: HEPARIN SOD (PORCINE) 1000 UNIT/ML IV ONE (12:29)
--- NOTE | 2024-07-07 14:20 | Hospitalist Progress Note ---
Date of Service July 07, 2024 Assessment & Plan (1) Encephalopathy acute: Plan: ongoing since hospital admission on 05/18/24 numerous reasons for altered MS during this prolonged hospitalization including hepatic encephalopathy, previous rhinovirus infection, UTI, toxic effects from meds, hospital delirium, etc. 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 Baseline Cr earlier this year <2. had required HD intermittently since admission and then ultimately began to need HD 3 days/week thus, has reached ESRD status appreciate nephrology assistance additional historical information -- Was hospitalized for nearly a month at [facility] this past fall 2023. Started on HD during that hospitalization. Does have right sided IJ permcath in place still. Per records had hepatorenal syndrome while in [facility]. Following his month-long stay at [place] was discharged to [facility]; stayed there for about 3 weeks. At some point either during his stay at [facility] or while at [facility] his HD was discontinued due to some renal recovery. (3) Rhinovirus infection: Plan: BioFire + on 05/30 had probable bacterial superinfection/pneumonia at that time as well and completed 7 day course of IV abx will repeat a COVID/flu/RSV today due to #1 (4) Urinary tract infection due to Enterococcus: Plan: 2nd VRE, 05/30/24 catheter-associated UTI completed 7 days of IV daptomycin (5) Urinary tract infection with hematuria: Plan: present on admission Known, underlying BPH He underwent Rezum procedure on December 05 had urethral stricture which was dilated on February 24, discharged with Marvin catheter Urologist Dr. Soto irrigated and repositioned his marvin catheter earlier this stay. Clots were evacuated. Hematuria resolved, did not require CBI At time of admission presumed to have had UTI, however urine culture from 05/15 with skin marco and urine and blood cultures from 05/18 were negative Was treated with cefepime then ceftriaxone 05/20-05/24 Developed another UTI in late May - to VRE s/p 7 day course of IV daptomycin no longer on flomax continues with marvin catheter - attempts to remove such earlier in the stay were not successful continues with gross hematuria which looks worse today leave marvin (6) Anemia in chronic kidney disease (CKD): Plan: transfused total of 5 units PRBCs since admission CBC in am (7) CHF (congestive heart failure): Plan: Echo 02/29/2024 -- EF 50 to 55%, moderate dilation of RV, LA, RA, mechanical aortic valve in place, trace aortic regurgitation, severe tricuspid regurgitation, diastolic dysfunction grade 3 Most recent echo with depressed EF in the 30s etiology uncertain pt's daughter made aware volume control with HD 3 days/week most recent cxr appears to have ongoing pulmonary edema cont meto tartrate 12.5mg bid; ultimately convert back to meto succ not a candidate for Entresto, aldactone, etc. due to ERSD (8) Diabetes mellitus, type 2: Plan: Most recent A1c (02/19/2024) 5.1% Has not required any therapies (9) Cirrhosis: Plan: With hepatic encephalopathy, coagulopathy, thrombocytopenia Cont lactulose/rifaximin Cont midodrine TID for low BP No clinical evidence of SBP (no overt abd pain, etc) (10) Muscle tone increased: Plan: UMN signs on exam hepatic encephalopathy has been aggressively treated MRI brain w/o pathology MRI c-spine with C5 myelomalacia - contributing?? but no severe spinal stenosis of c-spine but the C5 issue could be contributing had neuro eval early in the admission - PSP?? if he does have PSP there is no specific treatment other than supportive care (11) Acute hepatic encephalopathy: Plan: off/on during this prolonged hospitalization cont lactulose BID or TID to have 3 BMs/day cont rifaximin BID the stooling is going to make his sacral decub worse did pet adoption counselor his daughter that the ammonia level does not always correlate clinically he likely will always have mild-moderately elevated levels even with therapy (rifaximin/lactulose) (12) History of fractured vertebra: Plan: lower c-spine and upper t-spine see discussion above (13) Hx of aortic valve replacement, mechanical: Plan: no longer on coumadin due to prior radiation proctitis, hematuria, and coagulopathy at HIGH RISK of clotting of the valve with subsequent embolic phenomenon, etc. 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 (16) Hypothyroidism: Plan: TSH 0.5 early 06/2024 cont synthroid (17) Adrenal insufficiency: Plan: cosyntropin stim test this admission -- did not pass did not stim to >18 baseline cortisol was low at 3 cont hydrocortisone 15mg and 5mg each day per daughter's report had steroids while in [place] critical illness etc all likely to blame for secondary adrenal insufficiency (18) Radiation proctitis: Plan: one of the reasons he had his coumadin d/c earlier this year in [place] cause of radiation proctitis - prior XRT for prostate ca s/p flex sig this admission with angioectasias seen as well as XRT proctitis continues with intermittent BRBPR (19) Recurrent right pleural effusion: Plan: had thoracentesis while in [facility] 04/2024 this effusion has recurred and persists despite dialysis would NOT attempt thoracentesis - risks outweigh benefits (20) Stage III pressure sore: Plan: appreciate wound care recs & assistance he seems to be in significant pain from this and can't readily ask for pain meds as needed thus, will start with norco 5's BID scheduled stop scheduled tylenol titrate norco as needed for optimal pain relief could consider fentanyl patch 12's but hold off for now ; may not tolerate this due to his cirrhosis (21) End stage kidney disease: Plan: now on HD 3 days/week appreciate [facility] Plan updated pt's daughter Gloria (Gloria's cell - [phone]) extensively today had hour-long discussion in 3rd floor conference room discussed the following - end-stage multi-organ status (liver/kidneys/heart), worsening decubitus ulcer of the sacrum/buttocks, severe failure to thrive, severely altered mental status despite numerous efforts to treat all underlying causes of such, lack of sustained global improvement, pain from his decubitus ulcer, high risk of readmission to a hospital following discharge from [facility], concerns he may not tolerate transport to/from SNF to outpatient HD, etc discussed prognosis discussed options for care - routine care vs middle ground approach vs transitioning to comfort care pathway (stopping HD, focusing on pain control/comfort, etc) discussed a "do not re-hospitalize" care plan upon transition to SNF in [place]" Gloria will talk with her mother & 2 siblings regarding all of the above I did ask Gloria that she & her family provide their wishes for her dad in the next 1-2 days so that we can pass the care plan on to the SNF in [place] Gloria was very upset during our discussion gave support Gloria mentioned she & her family are Anabaptist; offered to call [facility] and have Maicol receive communion, prayer, etc. transfer to SNF tomorrow is not advised nor feasible at this time depending on the family's wishes we could potentially transfer to SNF on Friday but this is uncertain will discuss all of the above with case management on 07/08 very complex care coordination - total time today about 90 min including the 60 min discussion with pt's janet prognosis is very, very poor Admission and Anticipated Discharge Date Admission Date: May 18, 2024 Subjective saw patient while on HD he was very confused; did not know where he was he was moaning, sometimes calling out asked if he was in pain - said yes asked him if his buttocks hurt - said "my rectum" otherwise unable to provide any meaningful history or ROS during the visit later in the day met with pt's daughter Elizabeth for at least 60 min - see a/p section for details Review of Systems Review of Systems: Unobtainable due to cognitive status Physical Exam Physical Exam: gen - laying in bed, significantly altered, unable to have normal conversation; intermittently closing his eyes; moaning, calling out neck - mild JVD present mouth - MM dry heart - RRR, s1 s2, no murmur; mechanical valve closure sound lungs - decreased BS right base - no change; no wheezing; no rales abd - distended with ascites; BS+, NT, no HSM ext - pulses 2+ b/l feet, no edema b/l vascular - permcath right upper chest clean neuro - increased tone of LEs; muscle wasting present psych - oriented to person only Results & Data Results & Data Vital Signs (Past 12 Hours) Vital Signs Temp Pulse Pulse Pulse Resp BP BP 07/07/24 13:00 62 107/60 07/07/24 12:30 69 106/60 07/07/24 12:00 72 110/65 07/07/24 11:30 70 112/56 L 07/07/24 11:00 77 112/56 L 07/07/24 10:30 79 117/66 07/07/24 09:55 36.5 C 78 07/07/24 09:43 07/07/24 07:33 36.7 C 82 18 140/73 Pulse Ox O2 Del Method 07/07/24 13:00 07/07/24 12:30 07/07/24 12:00 07/07/24 11:30 07/07/24 11:00 07/07/24 10:30 07/07/24 09:55 07/07/24 09:43 Room Air 07/07/24 07:33 90 Room Air Laboratory Results Laboratory Results - last 24 hr 07/06/24 07/07/24 07/07/24 18:40 07:09 07:13 VBG pH 7.52 H VBG pCO2 35 L VBG pO2 65 VBG HCO3 29 VBG O2 Saturation 94.8 VBG Base Excess 5.7 Ammonia 96.0 H C-Reactive Protein 6.07 H Procalcitonin 0.34 SARS-CoV-2 (PCR) NEGATIVE Influenza Type A (PCR) Negative Influenza Type B (PCR) Negative RSV (RT-PCR) Negative PG Care Time/CCT Total # of Minutes Spent Total Time Spent with Patient: Total time spent is greater than 50% in coordination of care (as documented) at patient's floor/unit and/or counseling patient: Prolonged Care Time Prolonged Care Time: Yes Total Prolonged Care Time: 90 Coding Level of Care Code 15517 SUB INP/OBS CARE 3/50MIN (25 - SIGNIFICANT, SEPARATELY IDENTIFIABLE ) Diagnoses Encephalopathy acute G93.40 Acute kidney injury N17.9 Rhinovirus infection B34.8 Urinary tract infection due to Enterococcus N39.0; B95.2 Urinary tract infection with hematuria N39.0; R31.9 Anemia in chronic kidney disease (CKD) N18.9; D63.1 CHF (congestive heart failure) I50.9 Diabetes mellitus, type 2 E11.9 Cirrhosis K74.60 Muscle tone increased M62.89 Acute hepatic encephalopathy K76.82 History of fractured vertebra Z87.81 Hx of aortic valve replacement, mechanical Z95.2 Hx of aortic aneurysm Z86.79 Pancytopenia D61.818 Hypothyroidism E03.9 Adrenal insufficiency E27.40 Radiation proctitis K62.7 Recurrent right pleural effusion J90 Stage III pressure sore L89.93 End stage kidney disease N18.6 Additional Codes Prolonged Care Time - Prolonged Care Time: Yes ([id number])
[2024-07-07] MEDS: HYDROCODONE/ACETAMOPHEN 5/325MG TAB PO SCH (20:12)
--- NOTE | 2024-07-08 08:45 | Nephrology Progress Note ---
Date of Service July 08, 2024 Assessment & Plan (1) End stage kidney disease: Plan: * No acute indication for HD today. Will plan next treatment for am * Continue nephrocaps * On midodrine for BP support * Monitor BMP (2) Anemia: Plan: * Mild anemia * Will provide LANDEN w/ HD treatments (3) Generalized weakness: Plan: * Mental status waxes and wanes, patient has been bed bound and developed sacral decubitus ulcer. Duran is again draining grossly bloody urine. Prognosis is guarded. Consider palliative care consultation to discuss goals of care w/ family. Await discharge to SNF Admission and Anticipated Discharge Date Admission Date: May 18, 2024 Subjective Mr. Jarquin was evaluated in his hospital room this morning. He was agitated and perseverated on whether or not he was wearing shoes. Oriented only to self. Unable to obtain HPI or ROS. Review of Systems Review of Systems: Unobtainable due to cognitive status Physical Exam Constitutional: agitated Eyes: PERRL, conjunctivae normal, anicteric sclerae ENMT: external ear and nose normal, oropharynx normal Neck: trachea midline, no thyromegaly Respiratory: normal respiratory effort, lungs clear to auscultation Cardiovascular: RRR, no murmur, no edema Gastrointestinal (Abdomen): normal bowel sounds, soft, nontender, no hepatosplenomegaly Musculoskeletal: Extremities: no cyanosis and no clubbing Skin: no rashes, warm and dry Neurologic: awake ([place]) Results & Data Vital Signs (Past 12 Hours) Vital Signs Temp Pulse Resp BP Pulse Ox O2 Del Method O2 Flow Rate 07/08/24 07:44 36.9 C 78 20 114/62 93 Nasal Cannula 2 Laboratory Results Laboratory Results - last 24 hr 07/08/24 07/08/24 08:47 09:08 WBC 7.76 RBC 2.92 L Hgb 9.1 L Hct 28.9 L MCV 99.0 MCH 31.2 MCHC 31.5 L RDW Std Deviation 71.9 H RDW Coeff of Nick 19.7 H Plt Count 151 MPV 10.4 Sodium 138 Potassium 3.8 Chloride 102 Carbon Dioxide 28 Anion Gap 8 BUN 42 H Creatinine 2.16 H Est Cr Clr Drug Dosing 28.2 eGFR 30.57 BUN/Creatinine Ratio 19.4 Glucose 103 H Calcium 8.4 L PG Care Time/CCT Total # of Minutes Spent Total Time Spent with Patient: Total time spent is greater than 50% in coordination of care (as documented) at patient's floor/unit and/or counseling patient: Coding Level of Care Code 77615 SUB INP/OBS CARE 3/50MIN Diagnoses End stage kidney disease N18.6 Anemia D64.9 Anemia type: unspecified type Generalized weakness R53.1 (2) Anemia Anemia type: unspecified type Qualified Code(s): D64.9 - Anemia, unspecified
[2024-07-08 09:35] LABS: BUN Creatinine Ratio 19.4 (10-20); Calcium 8.4 mg/dl (8.6-10.3); Creatinine Clr Calc Pharmacy 28.2 ml/min; Potassium 3.8 mmol/L (3.5-5.1)
[2024-07-08 09:36] LABS: Hematocrit (blood only) 28.9 % (42.0-52.0); Hemoglobin 9.1 g/dl (14.0-18.0); Mean Corpuscular Hemoglobin 31.2 pg (25.0-34.0); Mean Corpuscular Hgb Conc 31.5 g/dL (32.0-36.0); Mean Platelet Volume 10.4 fL (9.4-12.4); Platelet Count 151 K/uL (130-400); RDW Coefficient of Variation 19.7 % (11.5-14.5); RDW Standard Deviation 71.9 fL (36.4-46.3); Red Blood Count 2.92 M/uL (4.70-6.10); White Blood Count 7.76 K/ul (4.8-10.8)
[2024-07-08] MEDS: HYDROCODONE/ACETAMOPHEN 5/325MG TAB PO STA (16:33)
[2024-07-08] MEDS: HYDROCORTISONE SOD IV SCH (16:39)
--- NOTE | 2024-07-08 19:11 | Hospitalist Progress Note ---
Date of Service July 08, 2024 Assessment & Plan (1) Encephalopathy acute: Plan: ongoing since hospital admission on 05/18/24 numerous reasons for altered MS during this prolonged hospitalization including hepatic encephalopathy, previous rhinovirus infection, UTI, toxic effects from meds, hospital delirium, pneumonia, etc. other factors also possible daughter reports mental status again worsened about 7-10 days ago work-up since then - negative BioFire on 07/01, negative abd u/s (no acute cholecystitis seen), fluctuating ammonia levels despite rifaximin/lactulose, repeat COVID/flu/RSV negative, VBG w/o hypercapnia, urine culture negative procal negative CRP modestly elevated but nonspecific obtaining brain MRI would not manager change - even if subacute CVA is found he is not candidate for antiplatelet or anticoagulation due to ongoing /GI bl eeding patient previously was on seroquel when he presented to [facility] in early May to help with night-time confusion & staying up all night resumed seroquel at 12.5mg HS he continues to tolerate this dose cont melatonin (2) Acute kidney injury: Plan: Presented with Creatinine of 2 at time of admission. Baseline Cr earlier this year <2. had required HD intermittently since admission and then ultimately began to need HD 3 days/week earlier in June thus, has reached ESRD status appreciate nephrology assistance will have HD tomorrow additional historical information -- Was hospitalized for nearly a month at [facility] this past fall 2023. Started on HD during that hospitalization. Does have right sided IJ permcath in place still. Per records had hepatorenal syndrome while in [facility]. Following his month-long stay at [place] was discharged to [facility]; stayed there for about 3 weeks. At some point either during his stay at [facility] or while at [facility] his HD was discontinued due to some renal recovery. (3) Rhinovirus infection: Plan: BioFire + on 05/30 had probable bacterial superinfection/pneumonia at that time as well and completed 7 day course of IV abx (4) Urinary tract infection due to Enterococcus: Plan: 2nd VRE, 05/30/24 catheter-associated UTI completed 7 days of IV daptomycin (5) Urinary tract infection with hematuria: Plan: present on admission Known, underlying BPH He underwent Rezum procedure on December 05 had urethral stricture which was dilated on February 24, discharged with Marvin catheter Urologist Dr. Soto irrigated and repositioned his marvin catheter earlier this stay. Clots were evacuated. Hematuria resolved, did not require CBI At time of admission presumed to have had UTI, however urine culture from 05/15 with skin marco and urine and blood cultures from 05/18 were negative Was treated with cefepime then ceftriaxone 05/20-05/24 Developed another UTI in late May - to VRE s/p 7 day course of IV daptomycin no longer on flomax continues with marvin catheter - attempts to remove such earlier in the stay were not successful continues with gross hematuria which looks worse today leave marvin (6) Anemia in chronic kidney disease (CKD): Plan: transfused total of 5 units PRBCs since admission CBC stable today (7) CHF (congestive heart failure): Plan: Echo 02/29/2024 -- EF 50 to 55%, moderate dilation of RV, LA, RA, mechanical aortic valve in place, trace aortic regurgitation, severe tricuspid regurgitat ion, diastolic dysfunction grade 3 Most recent echo with depressed EF in the 30s etiology uncertain pt's daughter and made aware of cardiomyopathy volume control with HD 3 days/week most recent cxr appears to have ongoing pulmonary edema cont meto tartrate 12.5mg bid; ultimately convert back to meto succ not a candidate for Entresto, aldactone, etc. due to ERSD (8) Diabetes mellitus, type 2: Plan: Most recent A1c (02/19/2024) 5.1% Has not required any therapies (9) Cirrhosis: Plan: With hepatic encephalopathy, coagulopathy, thrombocytopenia Cont lactulose/rifaximin Cont midodrine TID for low BP No clinical evidence of SBP (no overt abd pain, etc) (10) Muscle tone increased: Plan: [facility] signs on exam hepatic encephalopathy has been aggressively treated MRI brain w/o pathology MRI c-spine with C5 myelomalacia - contributing?? but no severe spinal stenosis of c-spine but the C5 issue could be contributing had neuro eval early in the admission - PSP?? if he does have PSP there is no specific treatment other than supportive care (11) Acute hepatic encephalopathy: Plan: off/on during this prolonged hospitalization cont lactulose TID; ideally needs to have 3 BMs/day cont rifaximin BID the stooling is going to make his sacral decub worse did dependency counselor his daughter that the ammonia level does not always correlate clinically he likely will always have mild-moderately elevated levels even with therapy (rifaximin/lactulose) (12) History of fractured vertebra: Plan: lower c-spine and upper t-spine see discussion above (13) Hx of aortic valve replacement, mechanical: Plan: no longer on coumadin due to prior radiation proctitis, hematuria, and coagulopathy at HIGH RISK of clotting of the valve with subsequent embolic phenomenon, etc. no CVA seen on MRI Brain earlier this admission (14) Hx of aortic aneurysm: Plan: with h/o chronic Type A dissection s/p repair [facility], [place], operated by [facility] several years ago (2019) (15) Pancytopenia: Plan: presumed 2nd to [facility] cirrhosis (16) Hypothyroidism: Plan: TSH 0.5 early 06/2024 cont synthroid (17) Adrenal insufficiency: Plan: cosyntropin stim test this admission -- did not pass did not stim to >18 baseline cortisol was low at 3 cont hydrocortisone 15mg and 5mg each day per daughter's report had steroids while in [place] critical illness etc all likely to blame for secondary adrenal insufficiency (18) Radiation proctitis: Plan: one of the reasons he had his coumadin d/c earlier this year in [place] cause of radiation proctitis - prior XRT for prostate ca s/p flex sig this admission with angioectasias seen as well as XRT proctitis continues with intermittent BRBPR - last bloody stool was 07/05 monitor (19) Recurrent right pleural effusion: Plan: had thoracentesis while in [facility] 04/2024 this effusion has recurred and persists despite dialysis would NOT attempt thoracentesis - risks outweigh benefits (20) Stage III pressure sore: Plan: appreciate wound care recs & assistance he has had significant pain from this and can't readily ask for pain meds as needed thus, cont norco 5's but increase from BID to TID scheduled titrate norco as needed for optimal pain relief could consider fentanyl patch 12's but hold off for now ; may not tolerate this due to his cirrhosis (21) End stage kidney disease: Plan: now on HD 3 days/week appreciate [facility] Nephro assistance (22) Failure to thrive: Plan: severe very low likelihood of improvement Plan updated pt's daughter Gloria (Gloria's cell - [phone]) and at bedside today they continue to talk as a family about goals of care they are discussing whether to re-hospitalize in the future, whether to continue dialysis, etc. I corresponded with case management that Mr Jarquin is not ready to d/c to SNF needs better pain control, and need to refine his overall care plan/goals of care Admission and Anticipated Discharge Date Admission Date: May 18, 2024 Subjective & daughter at bedside during the visit his meal-tray came and his daughter assisted with feeding earlier today he was persistently moaning and yelling out an additional norco was needed for pain control from his buttock wound he cannot offer history or ROS, but he does say consistently he hurts in this region per staff is eating much of his meals, and ate a good portion of his evening meal with his daughter's assistance he was confused the entire visit he told us he thought he was home updated pt's /daughter we reviewed some goals of care commented "if he isn't going to get better I don't want him to suffer; he has already suffered for so long" his expressed ongoing desire to have him in the [place] area at the SNF so they can visit more readily ([address] from their home to [place]) family asked if he could transfer to the SNF near [place] early next week Review of Systems Review of Systems: Unobtainable due to cognitive status Physical Exam Physical Exam: gen - laying in bed, significantly altered as previous, intermittently moaning neck - mild JVD present mouth - MM dry heart - RRR, s1 s2, no murmur; mechanical valve closure sound lungs - decreased BS right base - no change; no wheezing; no rales abd - distended with ascites; BS+, NT, no HSM ext - pulses 2+ b/l feet, no edema b/l vascular - permcath right upper chest clean neuro - increased tone of LEs; muscle wasting present x 4 exts as well as temporalis muscles of face psych - oriented to person only Results & Data Results & Data Vital Signs (Past 12 Hours) Vital Signs Temp Pulse Resp BP Pulse Ox O2 Del Method O2 Flow Rate 01/02/25 14:58 36.3 C L 76 20 123/67 97 Nasal Cannula 2 07/08/24 08:00 Nasal Cannula 2 07/08/24 07:44 36.9 C 78 20 114/62 93 Nasal Cannula 2 Laboratory Results Laboratory Results - last 24 hr 07/08/24 07/08/24 08:47 09:08 WBC 7.76 RBC 2.92 L Hgb 9.1 L Hct 28.9 L MCV 99.0 MCH 31.2 MCHC 31.5 L RDW Std Deviation 71.9 H RDW Coeff of Nick 19.7 H Plt Count 151 MPV 10.4 Sodium 138 Potassium 3.8 Chloride 102 Carbon Dioxide 28 Anion Gap 8 BUN 42 H Creatinine 2.16 H Est Cr Clr Drug Dosing 28.2 eGFR 30.57 BUN/Creatinine Ratio 19.4 Glucose 103 H Calcium 8.4 L PG Care Time/CCT Total # of Minutes Spent Total Time Spent with Patient: Total time spent is greater than 50% in coordination of care (as documented) at patient's floor/unit and/or counseling patient: Coding Level of Care Code 17431 SUB INP/OBS CARE 2/35MIN Diagnoses Encephalopathy acute G93.40 Acute kidney injury N17.9 Rhinovirus infection B34.8 Urinary tract infection due to Enterococcus N39.0; B95.2 Urinary tract infection with hematuria N39.0; R31.9 Anemia in chronic kidney disease (CKD) N18.9; D63.1 CHF (congestive heart failure) I50.9 Diabetes mellitus, type 2 E11.9 Cirrhosis K74.60 Muscle tone increased M62.89 Acute hepatic encephalopathy K76.82 History of fractured vertebra Z87.81 Hx of aortic valve replacement, mechanical Z95.2 Hx of aortic aneurysm Z86.79 Pancytopenia D61.818 Hypothyroidism E03.9 Adrenal insufficiency E27.40 Radiation proctitis K62.7 Recurrent right pleural effusion J90 Stage III pressure sore L89.93 End stage kidney disease N18.6 Failure to thrive
--- NOTE | 2024-07-09 08:52 | Nephrology Progress Note ---
Date of Service July 09, 2024 Assessment & Plan (1) End stage kidney disease: Plan: * HD today, attempt 1 L UF * Continue nephrocaps * On midodrine for BP support * Monitor BMP (2) Anemia: Plan: * Mild anemia * Will provide LANDEN w/ HD treatments (3) Generalized weakness: Plan: * Mental status waxes and wanes, patient has been bed bound and developed sacral decubitus ulcer. Duran is again draining grossly bloody urine. Prognosis is guarded. Primary service is discussing GOC w/ family Admission and Anticipated Discharge Date Admission Date: May 18, 2024 Subjective Mr. Jarquin was evaluated while on HD this morning. He was oriented to self only. Unable to obtain HPI or ROS. Review of Systems Constitutional: no fever Eyes: no problem reported Ear, Nose, Mouth, Throat: no problem reported Respiratory: no dyspnea Cardiovascular: no chest pain Gastrointestinal: no abdominal pain, no nausea, no vomiting and no diarrhea/loose stools Physical Exam Constitutional: not in distress Eyes: PERRL, conjunctivae normal, anicteric sclerae ENMT: external ear and nose normal, oropharynx normal Neck: trachea midline, no thyromegaly Respiratory: normal respiratory effort, lungs clear to auscultation Cardiovascular: RRR, no murmur, no edema Gastrointestinal (Abdomen): normal bowel sounds, soft, nontender, no h epatosplenomegaly Musculoskeletal: Extremities: no cyanosis and no clubbing Skin: no rashes, warm and dry Neurologic: awake ([place]) Results & Data Vital Signs (Past 12 Hours) Vital Signs Temp Pulse Resp BP Pulse Ox O2 Del Method O2 Flow Rate 07/09/24 08:47 36.7 C 71 16 113/52 L 96 Room Air 07/08/24 22:08 36.6 C 74 18 122/65 96 Nasal Cannula 2 Laboratory Results Laboratory Results - last 24 hr 07/08/24 07/08/24 08:47 09:08 WBC 7.76 RBC 2.92 L Hgb 9.1 L Hct 28.9 L MCV 99.0 MCH 31.2 MCHC 31.5 L RDW Std Deviation 71.9 H RDW Coeff of Nick 19.7 H Plt Count 151 MPV 10.4 Sodium 138 Potassium 3.8 Chloride 102 Carbon Dioxide 28 Anion Gap 8 BUN 42 H Creatinine 2.16 H Est Cr Clr Drug Dosing 28.2 eGFR 30.57 BUN/Creatinine Ratio 19.4 Glucose 103 H Calcium 8.4 L PG Care Time/CCT Total # of Minutes Spent Total Time Spent with Patient: Total time spent is greater than 50% in coordination of care (as documented) at patient's floor/unit and/or counseling patient: Coding Level of Care Code 30273 SUB INP/OBS CARE 3/50MIN Diagnoses End stage kidney disease N18.6 Anemia D64.9 Anemia type: unspecified type Generalized weakness R53.1 (2) Anemia Anemia type: unspecified type Qualified Code(s): D64.9 - Anemia, unspecified
[2024-07-09] MEDS: HEPARIN SOD (PORCINE) 1000 UNIT/ML IV SCH (11:13)
[2024-07-09] MEDS: HEPARIN SOD (PORCINE) 1000 UNIT/ML IV ONE (11:13)
[2024-07-09] MEDS: EPOETIN ALFA 10,000 UNITS/ML VIAL IV ONE (11:46)
[2024-07-09] MEDS: HYDROCORTISONE SOD 15 MG in SYRINGE 0 ML IV SCH (12:25)
[2024-07-09] MEDS: HYDROCODONE/ACETAMOPHEN 5/325MG TAB PO SCH (16:25)
--- NOTE | 2024-07-09 20:34 | Hospitalist Progress Note ---
Date of Service July 09, 2024 Assessment & Plan (1) Encephalopathy acute: Plan: ongoing since hospital admission on 05/18/24 numerous reasons for altered MS during this prolonged hospitalization including hepatic encephalopathy, previous rhinovirus infection, UTI, toxic effects from meds, hospital delirium, pneumonia, etc. 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 - even if subacute CVA is found he is not candidate for antiplatelet or anticoagulation due to ongoing /GI bleeding patient previously was on seroquel when he presented to [facility] in early May to help with night-time confusion & staying up all night resumed seroquel at 12.5mg HS he continues to tolerate this dose I do believe the seroquel is helping him and assisting with sleep/wake cycles cont melatonin (2) End stage kidney disease: Plan: now on HD 3 days/week appreciate [facility] assistance (3) Urinary tract infection with hematuria: Plan: present on admission Known, underlying BPH He underwent Rezum procedure on December 05 had urethral stricture which was dilated on February 24, discharged with Marvin catheter Urologist Dr. Soto irrigated and repositioned his marvin catheter earlier this stay. Clots were evacuated. Hematuria resolved, did not require CBI At time of admission presumed to have had UTI, however urine culture from 05/15 with skin marco and urine and blood cultures from 05/18 were negative Was treated with cefepime then ceftriaxone 05/20-05/24 Developed another UTI in late May - to VRE s/p 7 day course of IV daptomycin no longer on flomax continues with marvin catheter - attempts to remove such earlier in the stay were not successful continues with gross hematuria- level of hematuria waxes/wanes leave marvin keep off asa keep off coumadin (4) Acute kidney injury: Plan: Presented with Creatinine of 2 at time of admission. Baseline Cr earlier this year <2. had required HD intermittently since admission and then ultimately began to need HD 3 days/week earlier in June thus, has reached ESRD status appreciate nephrology assistance will have HD tomorrow additional historical information -- Was hospitalized for nearly a month at [facility] this past fall 2023. Started on HD during that hospitalization. Does have right sided IJ permcath in place still. Per records had hepatorenal syndrome while in [facility]. Following his month-long stay at [place] was discharged to [facility]; stayed there for about 3 weeks. At some point either during his stay at [facility] or while at [facility] his HD was discontinued due to some renal recovery. (5) Rhinovirus infection: Plan: BioFire + on 05/30 had probable bacterial superinfection/pneumonia at that time as well and completed 7 day course of IV abx (6) Urinary tract infection due to Enterococcus: Plan: 2nd VRE, 05/30/24 catheter-associated UTI completed 7 days of IV daptomycin (7) Anemia in chronic kidney disease (CKD): Plan: transfused total of 5 units PRBCs since admission CBC stable yesterday despite intermittent hematochezia and hematuria (8) CHF (congestive heart failure): Plan: Echo 02/29/2024 -- EF 50 to 55%, moderate dilation of RV, LA, RA, mechanical aortic valve in place, trace aortic regurgitation, severe tricuspid regurgitation, diastolic dysfunction grade 3 Most recent echo with depressed EF in the 30s etiology uncertain pt's daughter and made aware of cardiomyopathy volume control with HD 3 days/week most recent cxr appears to have ongoing pulmonary edema cont meto tartrate 12.5mg bid; ultimately convert back to meto succ not a candidate for Entresto, aldactone, etc. due to ERSD (9) Diabetes mellitus, type 2: Plan: Most recent A1c (02/19/2024) 5.1% Has not required any therapies (10) Cirrhosis: Plan: With hepatic encephalopathy, coagulopathy, thrombocytopenia Cont lactulose/rifaximin Cont midodrine TID for low BP No clinical evidence of SBP (no overt abd pain, etc) (11) Muscle tone increased: Plan: [facility] signs on exam hepatic encephalopathy has been aggressively treated MRI brain w/o pathology MRI c-spine with C5 myelomalacia - contributing?? but no severe spinal stenosis of c-spine but the C5 issue could be contributing had neuro eval early in the admission - PSP?? if he does have PSP there is no specific treatment other than supportive care (12) Acute hepatic encephalopathy: Plan: off/on during this prolonged hospitalization cont lactulose TID; ideally needs to have 3 BMs/day cont rifaximin BID the stooling is going to make his sacral decub worse did patent counsel his daughter that the ammonia level does not always correlate clinically he likely will always have mild-moderately elevated levels even with therapy (rifaximin/lactulose) (13) History of fractured vertebra: Plan: lower c-spine and upper t-spine see discussion above (14) Hx of aortic valve replacement, mechanical: Plan: no longer on coumadin due to prior radiation proctitis, hematuria, and coagulopathy at HIGH RISK of clotting of the valve with subsequent embolic phenomenon, etc. no CVA seen on MRI Brain earlier this admission (15) Hx of aortic aneurysm: Plan: with h/o chronic Type A dissection s/p repair [facility] several years ago (2019) (16) Pancytopenia: Plan: presumed 2nd to [facility] cirrhosis (17) Hypothyroidism: Plan: TSH 0.5 early 06/2024 cont synthroid (18) Adrenal insufficiency: Plan: cosyntropin stim test this admission -- did not pass did not stim to >18 baseline cortisol was low at 3 cont hydrocortisone 15mg and 5mg each day per daughter's report had steroids while in [place] critical illness etc all likely to blame for secondary adrenal insufficiency (19) Radiation proctitis: Plan: one of the reasons he had his coumadin d/c earlier this year in [place] cause of radiation proctitis - prior XRT for prostate ca s/p flex sig this admission with angioectasias seen as well as XRT proctitis continues with intermittent BRBPR - last bloody stool was 07/05 monitor (20) Recurrent right pleural effusion: Plan: had thoracentesis while in [facility] 04/2024 this effusion has recurred and persists despite dialysis would NOT attempt thoracentesis - risks outweigh benefits (21) Stage III pressure sore: Plan: appreciate wound care recs & assistance he has had significant pain from this and can't readily ask for pain meds as needed thus, cont norco 5's but increase from BID to TID scheduled titrate norco as needed for optimal pain relief could consider fentanyl patch 12's but hold off for now ; may not tolerate this due to his cirrhosis (22) Failure to thrive: Plan: severe very low likelihood of improvement Plan updated pt's daughter Gloria (Gloria's cell - [phone]) and at bedside 07/08/24 they continue to talk as a family about goals of care they are discussing whether to re-hospitalize in the future, whether to continue dialysis, etc. pt's & Gloria will be discussing things with 2 other children if pain is stable this weekend and altered MS is stable could potentially d/c early this coming week if family has decided on goals of care Admission and Anticipated Discharge Date Admission Date: May 18, 2024 Subjective no events seems more comfortable than prior with scheduled norco sleeping at night per nursing documentation eating at least 50% of meals had HD today w/o incident during the visit he was sleeping, but awoke easily denied pain in buttocks/rectal area today no abd pain fell back asleep while I was with him when asked where he was he said "psychic...." and then stopped talking Review of Systems Review of Systems: Unobtainable due to cognitive status Physical Exam Physical Exam: gen - laying in bed, significantly altered, but comfortable today neck - mild JVD mouth - MM dry, no obvious thrush heart - RRR, s1 s2, no murmur; mechanical valve closure sound lungs - decreased BS right base - no change; no wheezing; no rales abd - distended with ascites; BS+, NT, no HSM ext - pulses 2+ b/l feet, no edema b/l vascular - permcath right upper chest clean psych - oriented to person only Results & Data Results & Data Vital Signs (Past 12 Hours) Vital Signs Temp Pulse Pulse Pulse Resp BP BP 07/09/24 19:47 36.9 C 79 16 125/65 07/09/24 14:58 36.5 C 75 16 113/71 07/09/24 13:07 07/09/24 12:34 36.9 C 69 16 106/61 07/09/24 12:03 36.6 C 68 106/54 L 07/09/24 11:30 66 104/54 L 07/09/24 11:00 66 97/52 L 07/09/24 10:30 64 93/52 L 07/09/24 10:00 69 85/51 L 07/09/24 09:30 71 97/56 L 07/09/24 08:53 36.7 C 72 07/09/24 08:47 36.7 C 71 16 113/52 L Pulse Ox O2 Del Method O2 Flow Rate 07/09/24 19:47 96 Room Air 07/09/24 14:58 100 Nasal Cannula 3 07/09/24 13:07 Nasal Cannula 3 07/09/24 12:34 98 Nasal Cannula 3 07/09/24 12:03 07/09/24 11:30 07/09/24 11:00 07/09/24 10:30 07/09/24 10:00 07/09/24 09:30 07/09/24 08:53 07/09/24 08:47 96 Room Air Laboratory Results Laboratory Results - last 48 hr 07/08/24 07/08/24 08:47 09:08 WBC 7.76 RBC 2.92 L Hgb 9.1 L Hct 28.9 L MCV 99.0 MCH 31.2 MCHC 31.5 L RDW Std Deviation 71.9 H RDW Coeff of Nick 19.7 H Plt Count 151 MPV 10.4 Sodium 138 Potassium 3.8 Chloride 102 Carbon Dioxide 28 Anion Gap 8 BUN 42 H Creatinine 2.16 H Est Cr Clr Drug Dosing 28.2 eGFR 30.57 BUN/Creatinine Ratio 19.4 Glucose 103 H Calcium 8.4 L PG Care Time/CCT Total # of Minutes Spent Total Time Spent with Patient: Total time spent is greater than 50% in coordination of care (as documented) at patient's floor/unit and/or counseling patient: Coding Level of Care Code 95637 SUB INP/OBS CARE 07/31MIN Diagnoses Encephalopathy acute G93.40 End stage kidney disease N18.6 Urinary tract infection with hematuria N39.0; R31.9 Acute kidney injury N17.9 Rhinovirus infection B34.8 Urinary tract infection due to Enterococcus N39.0; B95.2 Anemia in chronic kidney disease (CKD) N18.9; D63.1 CHF (congestive heart failure) I50.9 Diabetes mellitus, type 2 E11.9 Cirrhosis K74.60 Muscle tone increased M62.89 Acute hepatic encephalopathy K76.82 History of fractured vertebra Z87.81 Hx of aortic valve replacement, mechanical Z95.2 Hx of aortic aneurysm Z86.79 Pancytopenia D61.818 Hypothyroidism E03.9 Adrenal insufficiency E27.40 Radiation proctitis K62.7 Recurrent right pleural effusion J90 Stage III pressure sore L89.93 Failure to thrive
--- NOTE | 2024-07-10 09:12 | Nephrology Progress Note ---
Date of Service July 10, 2024 Assessment & Plan (1) End stage kidney disease: Plan: * Patient last dialyzed 07/09/2024. No complications. Volume status appears acceptable. No acute indication for HD today * Continue nephrocaps * On midodrine for BP support * Monitor BMP (2) Anemia: Plan: * Mild anemia * Will provide LANDEN w/ HD treatments (3) Generalized weakness: Plan: * Mental status waxes and wanes, patient has been bed bound and developed sacral decubitus ulcer. Duran is again draining grossly bloody urine. Prognosis is guarded. Primary service is discussing GOC and SNF w/ family Admission and Anticipated Discharge Date Admission Date: May 18, 2024 Subjective Mr. Jarquin was evaluated in his hospital room this morning. He was oriented to self only. Unable to obtain HPI or ROS. Mr. Jarquin was last dialyzed yesterday for 1 L UF. There were no complications during the treatment however patient was very agitated and confused yelling out continuously during his treatment. Review of Systems Review of Systems: Detailed review of system was not possible because of change in mental status. Physical Exam Constitutional: not in distress Eyes: PERRL, conjunctivae normal, anicteric sclerae ENMT: external ear and nose normal, oropharynx normal Neck: trachea midline, no thyromegaly Respiratory: normal respiratory effort, lungs clear to auscultation Cardiovascular: RRR, no murmur, no edema Gastrointestinal (Abdomen): normal bowel sounds, soft, nontender, no hepatosplenomegaly Musculoskeletal: Extremities: no cyanosis and no clubbing Skin: no rashes, warm and dry Neurologic: awake ([place]) Results & Data Vital Signs (Past 12 Hours) Vital Signs Temp Pulse Resp BP Pulse Ox O2 Del Method O2 Flow Rate 07/10/24 08:00 36.6 C 86 18 101/68 96 Nasal Cannula 2 PG Care Time/CCT Total # of Minutes Spent Total Time Spent with Patient: Total time spent is greater than 50% in coordination of care (as documented) at patient's floor/unit and/or counseling patient: Coding Level of Care Code 58401 SUB INP/OBS CARE 3/50MIN Diagnoses End stage kidney disease N18.6 Anemia D64.9 Anemia type: unspecified type Generalized weakness R53.1 (2) Anemia Anemia type: unspecified type Qualified Code(s): D64.9 - Anemia, unspecified
--- NOTE | 2024-07-10 19:22 | Hospitalist Progress Note ---
Date of Service July 10, 2024 Assessment & Plan (1) Encephalopathy acute: Plan: ongoing since hospital admission on 05/18/24 numerous reasons for altered MS during this prolonged hospitalization including hepatic encephalopathy, previous rhinovirus infection, UTI, toxic effects from meds, hospital delirium, pneumonia, etc. daughter reports mental status again worsened about 7-10 days ago work-up since then - negative BioFire on 07/01, negative abd u/s (no acute cholecystitis seen), fluctuating ammonia levels despite rifaximin/lactulose, repeat COVID/flu/RSV negative, VBG w/o hypercapnia, urine culture negative procal negative CRP modestly elevated but nonspecific obtaining brain MRI would not exchange trouble shooter - even if subacute CVA is found he is not candidate for antiplatelet or anticoagulation due to ongoing /GI bleeding resumed seroquel 12.5mg HS on 07/06/24 he continues to tolerate this dose sleeping better at night with less sundowning and shouting/calling out at night cont melatonin 6mg HS (2) End stage kidney disease: Plan: now on HD 3 days/week [facility] (3) Urinary tract infection with hematuria: Plan: present on admission Known, underlying BPH He underwent Rezum procedure on December 05 had urethral stricture which was dilated on February 24, discharged with Marvin catheter Urologist Dr. Soto irrigated and repositioned his marvin catheter earlier this stay. Clots were evacuated. Hematuria resolved, did not require CBI At time of admission presumed to have had UTI, however urine culture from 05/15 with skin marco and urine and blood cultures from 05/18 were negative Was treated with cefepime then ceftriaxone 05/20-05/24 Developed another UTI in late May - to VRE s/p 7 day course of IV daptomycin no longer on flomax continues with marvin catheter - attempts to remove such earlier in the stay were not successful continues with gross hematuria- level of hematuria waxes/wanes leave marvin keep off asa keep off coumadin (4) Acute kidney injury: Plan: Presented with Creatinine of 2 at time of admission. Baseline Cr earlier this year <2. had required HD intermittently since admission and then ultimately began to need HD 3 days/week earlier in June thus, has reached ESRD status appreciate nephrology assistance will have HD tomorrow additional historical information -- Was hospitalized for nearly a month at [facility] this past fall 2023. Started on HD during that hospitalization. Does have right sided IJ permcath in place still. Per records had hepatorenal syndrome while in [facility]. Following his month-long stay at [place] was discharged to [facility]; stayed there for about 3 weeks. At some point either during his stay at [facility] or while at [facility] his HD was discontinued due to some renal recovery. (5) Rhinovirus infection: Plan: BioFire + on 05/30 had probable bacterial superinfection/pneumonia at that time as well and completed 7 day course of IV abx (6) Urinary tract infection due to Enterococcus: Plan: 2nd VRE, 05/30/24 catheter-associated UTI completed 7 days of IV daptomycin (7) Anemia in chronic kidney disease (CKD): Plan: transfused total of 5 units PRBCs since admission CBC stable yesterday despite intermittent hematochezia and hematuria (8) CHF (congestive heart failure): Plan: Echo 02/29/2024 -- EF 50 to 55%, moderate dilation of RV, LA, RA, mechanical aortic valve in place, trace aortic regurgitation, severe tricuspid regurgitation, diastolic dysfunction grade 3 Most recent echo with depressed EF in the 30s etiology uncertain pt's daughter and made aware of cardiomyopathy volume control with HD 3 days/week most recent cxr appears to have ongoing pulmonary edema cont meto tartrate 12.5mg bid; ultimately convert back to meto succ not a candidate for Entresto, aldactone, etc. due to ERSD (9) Diabetes mellitus, type 2: Plan: Most recent A1c (02/19/2024) 5.1% Has not required any therapies (10) Cirrhosis: Plan: With hepatic encephalopathy, coagulopathy, thrombocytopenia Cont lactulose/rifaximin Cont midodrine TID for low BP No clinical evidence of SBP (no overt abd pain, etc) (11) Muscle tone increased: Plan: UMN signs on exam hepatic encephalopathy has been aggressively treated MRI brain w/o pathology MRI c-spine with C5 myelomalacia - contributing?? but no severe spinal stenosis of c-spine but the C5 issue could be contributing had neuro eval early in the admission - PSP?? if he does have PSP there is no specific treatment other than supportive care (12) Acute hepatic encephalopathy: Plan: off/on during this prolonged hospitalization cont lactulose TID; ideally needs to have 3 BMs/day; only 1-2 a day since starting on norco; thus, add senna in addition to the lactulose cont rifaximin BID the stooling is going to make his sacral decub worse did marriage and family counselor his daughter that the ammonia level does not always correlate clinically he likely will always have mild-moderately elevated levels even with therapy (ri faximin/lactulose) (13) History of fractured vertebra: Plan: lower c-spine and upper t-spine see discussion above (14) Hx of aortic valve replacement, mechanical: Plan: no longer on coumadin due to prior radiation proctitis, hematuria, and coagulopathy at HIGH RISK of clotting of the valve with subsequent embolic phenomenon, etc. 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 (17) Hypothyroidism: Plan: TSH 0.5 early 06/2024 cont synthroid (18) Adrenal insufficiency: Plan: cosyntropin stim test this admission -- did not pass did not stim to >18 baseline cortisol was low at 3 cont hydrocortisone 15mg and 5mg each day per daughter's report had steroids while in [place] critical illness etc all likely to blame for secondary adrenal insufficiency (19) Radiation proctitis: Plan: one of the reasons he had his coumadin d/c earlier this year in [place] cause of radiation proctitis - prior XRT for prostate ca s/p flex sig this admission with angioectasias seen as well as XRT proctitis continues with intermittent BRBPR - last bloody stool was 07/05 monitor (20) Recurrent right pleural effusion: Plan: had thoracentesis while in [facility] 04/2024 this effusion has recurred and persists despite dialysis would NOT attempt thoracentesis - risks outweigh benefits (21) Stage III pressure sore: Plan: appreciate wound care recs & assistance he has had significant pain from this and can't readily ask for pain meds as needed started on norco and ultimately titrated to norco 5's TID scheduled pain has been much better since starting this could consider fentanyl patch 12's but hold off for now ; may not tolerate this due to his cirrhosis (but always an option down the line if needed) (22) Failure to thrive: Plan: severe very low likelihood of having sustained, global improvement Plan updated pt's daughter Gloria (Gloria's cell - [phone]) and at bedside 07/08/24 updated Gloria by phone 07/10/24 they continue to talk as a family about goals of care they are discussing whether to re-hospitalize in the future, whether to continue dialysis, etc. pt's & Gloria will be discussing things with 2 other children if pain is stable this weekend and altered MS is stable could potentially d/c early this coming week if family has decided on goals of care dispo - SNF in [facility] (near [facility]) Admission and Anticipated Discharge Date Admission Date: May 18, 2024 Subjective patient sleeping soundly during my rounds per nursing - eating decently at each meal seems more comfortable -- less moaning noted by staff, less calling out/shouting out sleeping better at night-time +stool earlier today Review of Systems Review of Systems: Unobtainable due to cognitive status Physical Exam Physical Exam: gen - sleeping comfortably without distress neck - mild JVD at 30 degrees mouth - MM dry, no thrush heart - RRR, s1 s2, 1/6 systolic murmur LSB; mechanical valve closure sound lungs - decreased BS right base - no change; no wheezing; mild rales left anterior chest abd - distended with ascites; BS+, NT, no HSM ext - pulses 2+ b/l feet, no edema b/l vascular - permcath right upper chest -- clean Results & Data Results & Data Vital Signs (Past 12 Hours) Vital Signs Temp Pulse Resp BP Pulse Ox O2 Del Method O2 Flow Rate 07/10/24 16:00 36.4 C L 75 18 120/67 100 Room Air 07/10/24 08:00 36.6 C 86 18 101/68 96 Nasal Cannula 3 PG Care Time/CCT Total # of Minutes Spent Total Time Spent with Patient: Total time spent is greater than 50% in coordination of care (as documented) at patient's floor/unit and/or counseling patient: Coding Level of Care Code 19594 SUB INP/OBS CARE 07/31MIN Diagnoses Encephalopathy acute G93.40 End stage kidney disease N18.6 Urinary tract infection with hematuria N39.0; R31.9 Acute kidney injury N17.9 Rhinovirus infection B34.8 Urinary tract infection due to Enterococcus N39.0; B95.2 Anemia in chronic kidney disease (CKD) N18.9; D63.1 CHF (congestive heart failure) I50.9 Diabetes mellitus, type 2 E11.9 Cirrhosis K74.60 Muscle tone increased M62.89 Acute hepatic encephalopathy K76.82 History of fractured vertebra Z87.81 Hx of aortic valve replacement, mechanical Z95.2 Hx of aortic aneurysm Z86.79 Pancytopenia D61.818 Hypothyroidism E03.9 Adrenal insufficiency E27.40 Radiation proctitis K62.7 Recurrent right pleural effusion J90 Stage III pressure sore L89.93 Failure to thrive
[2024-07-11 07:34] LABS: Hematocrit (blood only) 29.2 % (42.0-52.0); Mean Corpuscular Hemoglobin 30.9 pg (25.0-34.0); Mean Corpuscular Hgb Conc 30.8 g/dL (32.0-36.0); Mean Corpuscular Volume 100.3 fL (80.0-100.0); Mean Platelet Volume 10.3 fL (9.4-12.4); Platelet Count 133 K/uL (130-400); RDW Standard Deviation 69.3 fL (36.4-46.3); Red Blood Count 2.91 M/uL (4.70-6.10); White Blood Count 5.92 K/ul (4.8-10.8)
[2024-07-11 07:57] LABS: BUN Creatinine Ratio 20.8 (10-20); Calcium 8.6 mg/dl (8.6-10.3); Creatinine Clr Calc Pharmacy 21.8 ml/min; Potassium 4.7 mmol/L (3.5-5.1)
[2024-07-11] MEDS: SENNA 8.6 MG TAB PO SCH (08:18)
--- NOTE | 2024-07-11 09:28 | Nephrology Progress Note ---
Date of Service July 11, 2024 Assessment & Plan (1) End stage kidney disease: Plan: * Volume status and electrolyte balance are acceptable. No acute indication for HD today * Will schedule next HD for am * Continue nephrocaps * On midodrine for BP support * Monitor BMP (2) Anemia: Plan: * Mild anemia * Will provide LANDEN w/ HD treatments (3) Generalized weakness: Plan: * Mental status waxes and wanes, patient has been bed bound and developed sacral decubitus ulcer. Prognosis is guarded. Primary service is discussing GOC and SNF w/ family * Recommend d/c Duran if OK w/ urology Admission and Anticipated Discharge Date Admission Date: May 18, 2024 Subjective Mr. Jarquin was evaluated in his hospital room this morning. He was oriented to self only. He voiced no medical concerns Review of Systems Review of Systems: Detailed review of system was not possible because of change in mental status. Physical Exam Constitutional: not in distress Eyes: PERRL, conjunctivae normal, anicteric sclerae ENMT: external ear and nose normal, oropharynx normal Neck: trachea midline, no thyromegaly Respiratory: normal respiratory effort, lungs clear to auscultation Cardiovascular: RRR, no murmur, no edema Gastrointestinal (Abdomen): normal bowel sounds, soft, nontender, no hepatosplenomegaly Musculoskeletal: Extremities: no cyanosis and no clubbing Skin: no rashes, warm and dry Neurologic: awake ([place]) Genitourinary: Duran in place draining dark urine Results & Data Vital Signs (Past 12 Hours) Vital Signs Temp Pulse Resp BP Pulse Ox O2 Del Method O2 Flow Rate 07/10/24 22:03 36.2 C L 75 18 132/69 98 Nasal Cannula 3 Laboratory Results Laboratory Results - last 24 hr 07/11/24 06:50 WBC 5.92 RBC 2.91 L Hgb 9.0 L Hct 29.2 L MCV 100.3 H MCH 30.9 MCHC 30.8 L RDW Std Deviation 69.3 H RDW Coeff of Nick 19.0 H Plt Count 133 MPV 10.3 Sodium 137 Potassium 4.7 Chloride 104 Carbon Dioxide 26 Anion Gap 7 BUN 58 H Creatinine 2.79 H Est Cr Clr Drug Dosing 21.8 eGFR 22.49 BUN/Creatinine Ratio 20.8 H Glucose 90 Calcium 8.6 PG Care Time/CCT Total # of Minutes Spent Total Time Spent with Patient: Total time spent is greater than 50% in coordination of care (as documented) at patient's floor/unit and/or counseling patient: Coding Level of Care Code 45334 SUB INP/OBS CARE 350MIN Diagnoses End stage kidney disease N18.6 Anemia D64.9 Anemia type: unspecified type Generalized weakness R53.1 (2) Anemia Anemia type: unspecified type Qualified Code(s): D64.9 - Anemia, unspecified
--- NOTE | 2024-07-11 19:36 | Hospitalist Progress Note ---
Date of Service July 11, 2024 Assessment & Plan (1) Encephalopathy acute: Plan: ongoing since hospital admission on 05/18/24 numerous reasons for altered MS during this prolonged hospitalization including hepatic encephalopathy, previous rhinovirus infection, UTI, toxic effects from meds, hospital delirium, pneumonia, etc. daughter reports mental status again worsened about 7-10 days ago work-up since then - negative BioFire on 07/01, negative abd u/s (no acute cholecystitis seen), fluctuating ammonia levels despite rifaximin/lactulose, repeat COVID/flu/RSV negative, VBG w/o hypercapnia, urine culture negative procal negative CRP modestly elevated but nonspecific obtaining brain MRI would not gear changer - even if subacute CVA is found he is not candidate for antiplatelet or anticoagulation due to ongoing /GI bleeding resumed seroquel 12.5mg HS on 07/06/24 tolerating such; sleeping better at night with less sundowning and shouting/calling out at night cont melatonin 6mg HS (2) End stage kidney disease: Plan: now on HD 3 days/week appreciate [facility] Neph[facility] assistance next HD on 07/12/24 (3) Urinary tract infection with hematuria: Plan: present on admission Known, underlying BPH He underwent Rezum procedure on December 05 had urethral stricture which was dilated on February 24, discharged with Mavrin catheter Urologist Dr. Soto irrigated and repositioned his marvin catheter earlier this stay. Clots were evacuated. Hematuria resolved, did not require CBI At time of admission presumed to have had UTI, however urine culture from 05/15 with skin marco and urine and blood cultures from 05/18 were negative Was treated with cefepime then ceftriaxone 05/20-05/24 Developed another UTI in late May - to VRE s/p 7 day course of IV daptomycin no longer on flomax due to tendencies towards hypotension continues with marvin catheter - attempts to remove such earlier in the stay were not successful (retention, etc) has had gross hematuria in the last week but it has improved last 2-3 days; regardless his level of hematuria waxes/wanes as we have seen over the last 6 weeks leave marvin keep off asa keep off coumadin (4) Acute kidney injury: Plan: Presented with Creatinine of 2 at time of admission. Baseline Cr earlier this year <2. had required HD intermittently since admission and then ultimately began to need HD 3 days/week earlier in June thus, has reached ESRD status appreciate nephrology assistance will have HD tomorrow additional historical information -- Was hospitalized for nearly a month at [facility] this past fall 2023. Started on HD during that hospitalization. Does have right sided IJ permcath in place still. Per records had hepatorenal syndrome while in [facility]. Following his month-long stay at [place] was discharged to [facility]; stayed there for about 3 weeks. At some point either during his stay at [facility] or while at [facility] his HD was discontinued due to some renal recovery. (5) Rhinovirus infection: Plan: BioFire + on 05/30 had probable bacterial superinfection/pneumonia at that time as well and complet ed 7 day course of IV abx (6) Urinary tract infection due to Enterococcus: Plan: 2nd VRE, 05/30/24 catheter-associated UTI completed 7 days of IV daptomycin (7) Anemia in chronic kidney disease (CKD): Plan: transfused total of 5 units PRBCs since admission CBC stable yesterday despite intermittent hematochezia and hematuria (8) CHF (congestive heart failure): Plan: Echo 02/29/2024 -- EF 50 to 55%, moderate dilation of RV, LA, RA, mechanical aortic valve in place, trace aortic regurgitation, severe tricuspid regurgitation, diastolic dysfunction grade 3 Most recent echo with depressed EF in the 30s etiology uncertain pt's daughter and made aware of cardiomyopathy volume control with HD 3 days/week most recent cxr appears to have ongoing pulmonary edema cont meto tartrate 12.5mg bid; ultimately convert back to meto succ not a candidate for Entresto, aldactone, etc. due to ERSD (9) Diabetes mellitus, type 2: Plan: Most recent A1c (02/19/2024) 5.1% Has not required any therapies (10) Cirrhosis: Plan: With hepatic encephalopathy, coagulopathy, thrombocytopenia Cont lactulose/rifaximin -- added senna to his lactulose to maintain 3 BMs/day (only having about 2 BMs/day) Cont midodrine TID for low BP No clinical evidence of SBP (no overt abd pain, etc) (11) Muscle tone increased: Plan: [facility] signs on exam hepatic encephalopathy has been aggressively treated MRI brain w/o pathology MRI c-spine with C5 myelomalacia - contributing?? but no severe spinal stenosis of c-spine but the C5 issue could be contributing had neuro eval early in the admission - PSP?? if he does have PSP there is no specific treatment other than supportive care (12) Acute hepatic encephalopathy: Plan: off/on during this prolonged hospitalization cont lactulose TID; ideally needs to have 3 BMs/day; only 1-2 a day since starting on norco; thus, add senna in addition to the lactulose cont rifaximin BID the stooling is going to make his sacral decub worse did vocational guidance counselor his daughter that the ammonia level does not always correlate clinically he likely will always have mild-moderately elevated levels even with therapy (rifaximin/lactulose) (13) History of fractured vertebra: Plan: lower c-spine and upper t-spine see discussion above (14) Hx of aortic valve replacement, mechanical: Plan: no longer on coumadin due to prior radiation proctitis, hematuria, and coagulopathy at HIGH RISK of clotting of the valve with subsequent embolic phenomenon, etc. 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 (17) Hypothyroidism: Plan: TSH 0.5 early 06/2024 cont synthroid (18) Adrenal insufficiency: Plan: cosyntropin stim test this admission -- did not pass did not stim to >18 baseline cortisol was low at 3 cont hydrocortisone 15mg and 5mg each day per daughter's report had steroids while in [place] critical illness etc all likely to blame for secondary adrenal insufficiency (19) Radiation proctitis: Plan: one of the reasons he had his coumadin d/c earlier this year in [place] cause of radiation proctitis - prior XRT for prostate ca s/p flex sig this admission with angioectasias seen as well as XRT proctitis continues with intermittent BRBPR - last bloody stool was 07/05 monitor (20) Recurrent right pleural effusion: Plan: had thoracentesis while in [facility] 04/2024 this effusion has recurred and persists despite dialysis would NOT attempt thoracentesis - risks outweigh benefits (21) Stage III pressure sore: Plan: appreciate wound care recs & assistance he has had significant pain from this and can't readily ask for pain meds as needed started on norco and ultimately titrated to norco 5's TID scheduled pain has been much better since starting this could consider fentanyl patch 12's but hold off for now ; may not tolerate this due to his cirrhosis (but always an option down the line if needed) (22) Failure to thrive: Plan: severe very low likelihood of having sustained, global improvement Plan updated pt's daughter Gloria (Gloria's cell - [phone]) and at bedside 07/08/24 updated Gloria by phone 07/10/24 updated Gloria and her sister Michelle today, 07/11/24 goals of care are still not refined dispo - SNF in [facility] (near [facility]) hopefully early this week Admission and Anticipated Discharge Date Admission Date: May 18, 2024 Subjective no events overnight resting comfortably at night-time during the day he is more comfortable than prior - less moaning/shouting out/etc during my visit pt's 2 daughters were present at bedside they were feeding him his dinner did eat well, but immediately fell asleep post-meal Review of Systems Review of Systems: Unobtainable due to cognitive status Physical Exam Physical Exam: gen - comfortable, NAD; altered neck - mild JVD at 30 degrees mouth - MM dry heart - RRR, s1 s2, 1/6 systolic murmur LSB; mechanical valve closure sound lungs - decreased BS right base - no change; no wheezing; mild rales left anterior chest and left axillary region abd - distended with ascites; BS+, NT, no HSM ext - pulses 2+ b/l feet, no edema b/l vascular - permcath right upper chest -- clean psych - oriented to person only Results & Data Results & Data Vital Signs (Past 12 Hours) Vital Signs Temp Pulse Resp BP Pulse Ox O2 Del Method O2 Flow Rate 07/11/24 19:19 36.6 C 77 15 123/64 96 Nasal Cannula 3 07/11/24 15:25 36.5 C 79 18 128/66 99 Nasal Cannula 3 07/11/24 09:41 36.3 C L 76 18 100/57 L 99 Nasal Cannula 3.5 07/11/24 07:52 Nasal Cannula 2 Laboratory Results Laboratory Results - last 24 hr 07/11/24 06:50 WBC 5.92 RBC 2.91 L Hgb 9.0 L Hct 29.2 L MCV 100.3 H MCH 30.9 MCHC 30.8 L RDW Std Deviation 69.3 H RDW Coeff of Nick 19.0 H Plt Count 133 MPV 10.3 Sodium 137 Potassium 4.7 Chloride 104 Carbon Dioxide 26 Anion Gap 7 BUN 58 H Creatinine 2.79 H Est Cr Clr Drug Dosing 21.8 eGFR 22.49 BUN/Creatinine Ratio 20.8 H Glucose 90 Calcium 8.6 PG Care Time/CCT Total # of Minutes Spent Total Time Spent with Patient: Total time spent is greater than 50% in coordination of care (as documented) at patient's floor/unit and/or counseling patient: Coding Level of Care Code 96908 SUB INP/OBS CARE 2/35MIN Diagnoses Encephalopathy acute G93.40 End stage kidney disease N18.6 Urinary tract infection with hematuria N39.0; R31.9 Acute kidney injury N17.9 Rhinovirus infection B34.8 Urinary tract infection due to Enterococcus N39.0; B95.2 Anemia in chronic kidney disease (CKD) N18.9; D63.1 CHF (congestive heart failure) I50.9 Diabetes mellitus, type 2 E11.9 Cirrhosis K74.60 Muscle tone increased M62.89 Acute hepatic encephalopathy K76.82 History of fractured vertebra Z87.81 Hx of aortic valve replacement, mechanical Z95.2 Hx of aortic aneurysm Z86.79 Pancytopenia D61.818 Hypothyroidism E03.9 Adrenal insufficiency E27.40 Radiation proctitis K62.7 Recurrent right pleural effusion J90 Stage III pressure sore L89.93 Failure to thrive
--- NOTE | 2024-07-12 10:41 | Nephrology Progress Note ---
Date of Service July 12, 2024 Assessment & Plan (1) End stage kidney disease: (2) Anemia: (3) Generalized weakness: (4) Recurrent right pleural effusion: Plan 79-year-old male with h/o ESKD and h/o stage 4 CKD with baseline creatinine 2.0 mg/dl dating back to at least 08/30. He was hospitalized at [facility] 2 months ago for hepatorenal syndrome and required initiation of HD but stopped, had R IJ TCC in place. He was then admitted at [facility] on 05/18 with gross hematuria, AMS INR 13 and creatinine 2.0. Renal ultrasound negative for hydronephrosis. Kidney function continued to worsen with oliguria and no improvement in mental status and he was restarted on HD on 05/27/24 for oliguric VINICIUS. He remains dialysis dependent for > a month, no sign of renal recovery, noted to have sharp rise in creatinine in between dialysis. Continue on maintenance hemodialysis, currently blood pressure, electrolyte acceptable. --Hemodialysis this afternoon, continue on Bumex 2 mg daily --Dose medications for eGFR less than 10 --LANDNE with HD --Left arm nephrology precaution for possible AV fistula in future. 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 Admission and Anticipated Discharge Date Admission Date: May 18, 2024 Subjective Papito was seen and evaluated this morning. Much more awake, alert today, continue to be somewhat confused. Volume status acceptable, due for dialysis this afternoon. Blood pressure has been stable, heart rate controlled. Review of Systems Review of Systems: Detailed review of system was not possible because of confusion but clinically he seemed comfortable. Physical Exam Constitutional: WD/WN, vitals as above + ill appearing Respiratory: Auscultation: + diminished lung sounds Cardiovascular: RRR, no murmur, no edema Skin: + turgor decreased and + skin atrophy; n o ulcers Neurologic: awake Psychiatric: Orientation: alert and cooperative Results & Data Vital Signs (Past 12 Hours) Vital Signs O2 Del Method O2 Flow Rate 07/12/24 07:15 Nasal Cannula 2 PG Care Time/CCT Total # of Minutes Spent Total Time Spent with Patient: Total time spent is greater than 50% in coordination of care (as documented) at patient's floor/unit and/or counseling patient: Coding Level of Care Code 32514 SUB INP/OBS CARE 2/35MIN Diagnoses End stage kidney disease N18.6 Anemia D64.9 Anemia type: unspecified type Generalized weakness R53.1 Recurrent right pleural effusion J90 (2) Anemia Anemia type: unspecified type Qualified Code(s): D64.9 - Anemia, unspecified
--- NOTE | 2024-07-12 13:40 | Hospitalist Progress Note ---
Date of Service July 12, 2024 Assessment & Plan (1) Encephalopathy acute: Plan: ongoing since hospital admission on 05/18/24 numerous reasons for altered MS during this prolonged hospitalization including hepatic encephalopathy, previous rhinovirus infection, UTI, toxic effects from meds, hospital delirium, pneumonia, etc. 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 (2) End stage kidney disease: Plan: now on HD 3 days/week appreciate [facility] Neph[facility] assistance next HD on 07/12/24 (3) Urinary tract infection with hematuria: Plan: present on admission Known, underlying BPH He underwent Rezum procedure on December 05 had urethral stricture which was dilated on February 24, discharged with Marvin catheter Urologist Dr. Soto irrigated and repositioned his marvin catheter earlier this stay. Clots were evacuated. Hematuria resolved, did not require CBI At time of admission presumed to have had UTI, however urine culture from 05/15 with skin marco and urine and blood cultures from 05/18 were negative Was treated with cefepime then ceftriaxone 05/20-05/24 Developed another UTI in late May - to VRE s/p 7 day course of IV daptomycin no longer on flomax due to tendencies towards hypotension continues with marvin catheter - attempts to remove such earlier in the stay were not successful (retention, etc) has had gross hematuria in the last week but it has improved last 2-3 days; regardless his level of hematuria waxes/wanes as we have seen over the last 6 weeks leave marvin keep off asa keep off coumadin (4) Acute kidney injury: Plan: Presented with Creatinine of 2 at time of admission. Baseline Cr earlier this year <2. had required HD intermittently since admission and then ultimately began to need HD 3 days/week earlier in June thus, has reached ESRD status appreciate nephrology assistance will have HD today to have HD Fri/Fri/Friday at [facility] additional historical information -- Was hospitalized for nearly a month at [facility] this past fall 2023. Started on HD during that hospitalization. Does have right sided IJ permcath in place still. Per records had hepatorenal syndrome while in [facility]. Following his month-long stay at [place] was discharged to [facility]; stayed there for about 3 weeks. At some point either during his stay at [facility] or while at [facility] his HD was discontinued due to some renal recovery. (5) Rhinovirus infection: Plan: BioFire + on 05/30 had probable bacterial superinfection/pneumonia at that time as well and completed 7 day course of IV abx (6) Urinary tract infection due to Enterococcus: Plan: 2nd VRE, 05/30/24 catheter-associated UTI completed 7 days of IV daptomycin (7) Anemia in chronic kidney disease (CKD): Plan: transfused total of 5 units PRBCs since admission CBC stable yesterday despite intermittent hematochezia and hematuria (8) CHF (congestive heart failure): Plan: Echo 02/29/2024 -- EF 50 to 55%, moderate dilation of RV, LA, RA, mechanical aortic valve in place, trace aortic regurgitation, severe tricuspid regurgitation, diastolic dysfunction grade 3 Most recent echo with depressed EF in the 30s etiology uncertain pt's daughter and made aware of cardiomyopathy volume control with HD 3 days/week most recent cxr appears to have ongoing pulmonary edema cont meto tartrate 12.5mg bid; ultimately convert back to meto succ not a candidate for Entresto, aldactone, etc. due to ERSD (9) Diabetes mellitus, type 2: Plan: Most recent A1c (02/19/2024) 5.1% Has not required any therapies (10) Cirrhosis: Plan: With hepatic encephalopathy, coagulopathy, thrombocytopenia Cont lactulose/rifaximin -- added senna to his lactulose to maintain 3 BMs/day (only having about 2 BMs/day) Cont midodrine TID for low BP No clinical evidence of SBP (no overt abd pain, etc) (11) Muscle tone increased: Plan: [facility] signs on exam hepatic encephalopathy has been aggressively treated MRI brain w/o pathology MRI c-spine with C5 myelomalacia - contributing?? but no severe spinal stenosis of c-spine but the C5 issue could be contributing had neuro eval early in the admission - PSP?? if he does have PSP there is no specific treatment other than supportive care (12) Acute hepatic encephalopathy: Plan: off/on during this prolonged hospitalization cont lactulose TID; ideally needs to have 3 BMs/day; only 1-2 a day since starting on norco; thus, added senna in addition to the lactulose cont rifaximin BID frequent stooling/incontinence is going to make his sacral decub worse (13) History of fractured vertebra: Plan: lower c-spine and upper t-spine see discussion above (14) Hx of aortic valve replacement, mechanical: Plan: no longer on coumadin due to prior radiation proctitis, hematuria, and coagulopathy at HIGH RISK of clotting of the valve with subsequent embolic phenomenon, etc. 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 (17) Hypothyroidism: Plan: TSH 0.5 early 06/2024 cont synthroid (18) Adrenal insufficiency: Plan: cosyntropin stim test this admission -- did not pass did not stim to >18 baseline cortisol was low at 3 cont hydrocortisone 15mg and 5mg each day per daughter's report had steroids while in [place] critical illness etc all likely to blame for secondary adrenal insufficiency (19) Radiation proctitis: Plan: one of the reasons he had his coumadin d/c earlier this year in [place] cause of radiation proctitis - prior XRT for prostate ca s/p flex sig this admission with angioectasias seen as well as XRT proctitis continues with intermittent BRBPR - last bloody stool was 07/05 monitor (20) Recurrent right pleural effusion: Plan: had thoracentesis while in [facility] 04/2024 this effusion has recurred and persists despite dialysis would NOT attempt thoracentesis - risks outweigh benefits (21) Stage III pressure sore: Plan: appreciate wound care recs & assistance he has had significant pain from this and can't readily ask for pain meds as needed started on norco and ultimately titrated to norco 5's TID scheduled pain has been much better since starting this staff report the wound appears worse than last week likelihood of this resolving is very low (22) Failure to thrive: Plan: severe very low likelihood of having sustained, global improvement Plan updated pt's daughter Gloria (Gloria's cell - [phone]) and at bedside 07/08/24 updated Gloria by phone 07/10/24 updated Gloria and her sister Michelle at bedside 07/11/24 left long message for Gloria on her cell phone this pm, 07/12/24 dispo - SNF in [facility] (near [facility]) to transfer there tomorrow morning, 07/[address] Janeth Butt, Med director at [facility] - [phone] reviewed pt's hospitalization here as well as prior stays at [facility] in April and [facility] in May discussed that Mr Jarquin has end-stage renal disease, end-stage cirrhosis, and severe cardiomyopathy with EF 30-35% informed her of severe failure to thrive, ongoing altered MS (severe), ongoing decubitus ulcer, and his numerous other issues will send detailed summary to Dr Butt Admission and Anticipated Discharge Date Admission Date: May 18, 2024 Subjective saw patient prior to him going for dialysis was sleeping, but did arouse was confused as previous was a bit more sleepy than yesterday - he fell asleep while we were talking staff report very little appetite today had normal BM this am w/o blood or melena slept all night per staff Review of Systems Review of Systems: Unobtainable due to cognitive status Physical Exam Physical Exam: gen - comfortable, NAD; altered; sleepy neck - mild JVD at 30 degrees mouth - MM dry; no thrush heart - RRR, s1 s2, 1/6 systolic murmur LSB; mechanical valve closure sound lungs - decreased BS right base - no change; no wheezing; mild-moderate rales left anterior chest today - maybe slightly worse than prior abd - distended with ascites; BS+, NT, no HSM ext - pulses 2+ b/l feet, no edema b/l vascular - permcath right upper chest -- clean psych - oriented to person only/very confused Results & Data Results & Data Vital Signs (Past 12 Hours) Vital Signs Temp Pulse Resp BP Pulse Ox O2 Del Method O2 Flow Rate 07/12/24 12:26 36.4 C L 78 16 115/49 L 97 Nasal Cannula 2 07/12/24 07:15 Nasal Cannula 2 Laboratory Results Laboratory Results - last 48 hr 07/11/24 07/12/24 06:50 13:44 WBC 5.92 RBC 2.91 L Hgb 9.0 L Hct 29.2 L MCV 100.3 H MCH 30.9 MCHC 30.8 L RDW Std Deviation 69.3 H RDW Coeff of Nick 19.0 H Plt Count 133 MPV 10.3 Sodium 137 Potassium 4.7 Chloride 104 Carbon Dioxide 26 Anion Gap 7 BUN 58 H Creatinine 2.79 H Est Cr Clr Drug Dosing 21.8 eGFR 22.49 BUN/Creatinine Ratio 20.8 H Glucose 90 POC Glucose 101 H Calcium 8.6 PG Care Time/CCT Total # of Minutes Spent Total Time Spent with Patient: Total time spent is greater than 50% in coordination of care (as documented) at patient's floor/unit and/or counseling patient: Coding Level of Care Code 50495 SUB INP/OBS CARE 3/50MIN Diagnoses Encephalopathy acute G93.40 End stage kidney disease N18.6 Urinary tract infection with hematuria N39.0; R31.9 Acute kidney injury N17.9 Rhinovirus infection B34.8 Urinary tract infection due to Enterococcus N39.0; B95.2 Anemia in chronic kidney disease (CKD) N18.9; D63.1 CHF (congestive heart failure) I50.9 Diabetes mellitus, type 2 E11.9 Cirrhosis K74.60 Muscle tone increased M62.89 Acute hepatic encephalopathy K76.82 History of fractured vertebra Z87.81 Hx of aortic valve replacement, mechanical Z95.2 Hx of aortic aneurysm Z86.79 Pancytopenia D61.818 Hypothyroidism E03.9 Adrenal insufficiency E27.40 Radiation proctitis K62.7 Recurrent right pleural effusion J90 Stage III pressure sore L89.93 Failure to thrive
[2024-07-12] MEDS: EPOETIN ALFA 10,000 UNITS/ML VIAL IV ONE (14:51)
[2024-07-12] MEDS: HEPARIN SOD (PORCINE) 1000 UNIT/ML IV ONE (14:57)
[2024-07-12] MEDS: HEPARIN SOD (PORCINE) 1000 UNIT/ML IV SCH (17:39)
[2024-07-12 20:12] VITALS: TEMP 97.5
--- NOTE | 2024-07-13 07:21 | Discharge Summary ---
Discharge Summary Date of Service date of admission - May 18, 2024 date of discharge - July 13, 2024 Principal Dx & Hospital Course #1 = Principal Diagnosis (1) Encephalopathy acute: ongoing since hospital admission on 05/18/24 numerous reasons for altered MS during this prolonged hospitalization including hepatic encephalopathy, previous rhinovirus infection, previous UTI x 2, toxic effects from meds, hospital delirium, pneumonia, insomnia with disruption of sleep/wake cycle, etc. cannot rule out underlying cognitive impairment/dementia at baseline during his near-2 month stay he was altered the vast majority of days mental status never recovered to baseline despite aggressive Rx of all issues listed above about 10 days ago his mental status worsened additional work-up since then - negative respiratory BioFire on 07/01, negative abdominal u/s (no acute cholecystitis seen), repeat COVID/flu/RSV negative on 07/06, VBG w/o hypercapnia, urine culture negative, procalcitonin negative; CRP modestly elevated but nonspecific his ammonia level has fluctuated considerably the entire stay despite consistent use of lactulose TID & rifaximin BID; often times, however, the ammonia level did not correlate with how he was doing clinically (ie - even with a normal ammonia level he was still altered) obtaining a repeat brain MRI would not changeover operator - even if subacute CVA was found he would not be a candidate for antiplatelet or anticoagulation due to ongoing /GI bleeding resumed seroquel 12.5mg HS on 07/06/24 due to sundowning and shouting/calling out at night-time tolerating such; sleeping much better at night with less sundowning remains on melatonin 6mg HS 07/12/24 - more sleepy and ate much less than prior days possibilities include rising ammonia levels despite rifaximin/lactulose, brewing infection, or simply entering end-of-life stage BSG 07/12/24 - 101 no changes were made in his care plan as he had been tolerating scheduled norco and scheduled seroquel for over a week prior to these changes (2) Failure to thrive: severe very low likelihood of having sustained, global improvement end-stage cirrhosis, end-stage renal disease, severe cardiomyopathy, altered mental status, deconditioning, ?underlying neurological disease, etc. all to blame for his severe failure to thrive (3) End stage kidney disease: during his month long hospital stay at [facility] - April 2024 - he was started on hemodialysis due to hepatorenal syndrome/VINICIUS after discharge from [facility] to [facility] rehab he was continued on HD but by report had renal recovery and HD was later on paused while rehabbing following admission to [facility] his renal function continued to deteriorate he required intermittent HD initially, then 2x/week, then ultimately 3 days/week on Friday/Fri/Friday has right IJ permcath HD was managed by [facility] last HD session at [facility] was 07/12/24 (4) Acute kidney injury: Presented with Creatinine of 2 at time of admission Baseline Creatinine earlier this year was <2 had required HD intermittently since admission and then ultimately began to need HD 3 days/week earlier in June 2024 thus, has reached ESRD status to have HD /Friday upon transfer to [facility] additional historical information -- Was hospitalized for nearly a month at [facility] this past fall 2023. Started on HD during that hospitalization. Does have right sided IJ permcath in place still. Per records had hepatorenal syndrome while in [facility] Following his month-long stay at [place] was discharged to [facility]; stayed there for about 3 weeks. (5) CHF (congestive heart failure): Echo 02/29/2024 -- EF 50 to 55%, moderate dilation of RV, LA, RA, mechanical aortic valve in place, trace aortic regurgitation, severe tricuspid regurgitation, diastolic dysfunction grade 3 Echo this admission with depressed EF, 30-35% etiology uncertain pt's daughter and made aware of cardiomyopathy volume control with HD 3 days/week despite attempts to pull as much fluid as possible during his HD sessions his most recent cxr appears to have ongoing pulmonary edema he also continues with NC O2 requirement - either 2nd to pulmonary edema vs aspiration cont metoprolol succinate 12.5mg daily not a candidate for Entresto, aldactone, KENNY, ARB, etc. due to ESRD (6) Cirrhosis: With hepatic encephalopathy, coagulopathy, thrombocytopenia Cont lactulose/rifaximin -- added senna to his lactulose to maintain 3 BMs/day (was only having about 2 BMs/day on TID lactulose) Cont midodrine TID for low BP No clinical evidence of SBP (no overt abdominal pain, etc) while here (7) Urinary tract infection with hematuria: present on admission Patient has known, underlying BPH He underwent Rezum procedure on December 06, 2023 by [facility] had urethral stricture which was dilated on February 25, 2024 - also by [facility] - discharged with Marvin catheter following that procedure despite intermittent hematuria since admission he never required continuous bladder irrigation At time of admission presumed to have had UTI and received IV antibiotics at that time Developed another UTI in late May - 2nd to VRE s/p 7 day course of IV daptomycin no longer on flomax due to tendencies towards hypotension and is marvin catheter dependent any way continues with marvin catheter - attempts to remove such earlier in the stay were not successful (retention, etc) has had gross hematuria in the last week but it has improved last 2-3 days; regardless his level of hematuria waxes/wanes as we have seen over the last 6 weeks leave marvin at discharge keep off aspirin keep off coumadin (8) Rhinovirus infection: BioFire + on 05/30/24 had probable bacterial superinfection/pneumonia at that time as well and completed 7 day course of IV antibiotics at that time (9) Urinary tract infection due to Enterococcus: 2nd VRE, 05/30/24 catheter-associated UTI completed 7 days of IV daptomycin most recent urine culture 07/06/24 negative (10) Anemia in chronic kidney disease (CKD): transfused total of 5 units PRBCs since admission anemia is due to ESRD but also from blood loss from intermittent hematochezia and hematuria most recent hemoglobin - 9 (07/11/24) (11) Diabetes mellitus, type 2: Most recent A1c (02/19/2024) 5.1% Has not required any therapies for his glucose while here We have not been checking BSGs for most of his stay AM glucose levels on lab draws have nearly all been <125 (12) Muscle tone increased: UMN signs are apparent on physical exam hepatic encephalopathy can cause increased tone but has been aggressively treated and I doubt is the cause MRI brain w/o pathology MRI c-spine with C5 myelomalacia - contributing?? but no severe spinal stenosis of c-spine -but the C5 issue could be contributing to his increased tone had neurology evaluation early in the admission - they suggested he could have PSP?? (progressive supranuclear palsy) if he does have PSP there is no specific treatment other than supportive care family did comment that he has had a tremor over the last 1-2 years (13) Acute hepatic encephalopathy: off/on during this prolonged hospitalization cont lactulose TID; ideally needs to have 3 BMs/day; only 1-2 a day since starting on norco; thus, added senna in addition to the lactulose cont rifaximin BID frequent stooling/incontinence is making his sacral decub worse (14) History of fractured vertebra: lower c-spine and upper t-spine 2nd to lawnmower accident years ago never required surgery (15) Hx of aortic valve replacement, mechanical: no longer on coumadin due to radiation proctitis with hematochezia, radiation cystitis with hematuria, and coagulopathy from end-stage liver disease at HIGH RISK of clotting of the valve with subsequent embolic phenomenon, etc. 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 (18) Hypothyroidism: TSH 0.5 early 06/2024 cont synthroid (19) Adrenal insufficiency: cosyntropin stim test this admission -- did not pass did not stim to cortisol level of >18 baseline cortisol was low at 3 was on stress doses of hydrocortisone, then ultimately weaned to basal levels of hydrocortisone 15mg and 5mg each day this is secondary adrenal insufficiency (20) Radiation proctitis: one of the reasons he had his coumadin d/c earlier this year in [place] cause of radiation proctitis - prior XRT for prostate ca s/p flex sigmoidoscopy this admission with angioectasias seen as well as XRT proctitis continues with intermittent BRBPR - last bloody stool was 07/05/24 per nursing staff (21) Recurrent right pleural effusion: had thoracentesis while in [facility] 04/2024 this effusion has recurred and persists despite dialysis treatments would NOT attempt thoracentesis - risks outweigh benefits (22) Stage III pressure sore: managed by Darius[facility] Sullivan wound care team he has had significant pain from this and can't readily ask for pain meds as needed due to altered mental status started on norco and ultimately titrated to norco 5mg tablets TID scheduled pain has been much better since starting this and will be continued upon transfer to SNF staff report the wound continues to worsen likelihood of this resolving is very low Plan numerous end-of-life discussions were held by multiple providers with daughter Kristin Jarquin (Kristin's cell - [phone]) and Mrs Jarquin family counseled that he has multi-organ failure (liver, kidney, heart), severely impaired mental status that has not improved, severe failure to thrive, worsening decubitus ulcer of the sacrum/buttock, etc. patient's family counseled about high risk of readmission to the hospital due to end-stage disease states as well as very poor prognosis given his complicated medical status further, it is highly likely he will continue to decline despite maximal medical efforts to treat all medical issues he is DNR/DNI, but at time of SNF transfer all other care measures will be continued including hemodialysis disposition - [facility] he will dialyze at [facility] receiving medical doctor md at [facility] - Dr Janeth Butt Admission HPI Per Admitting Provider 79-year-old male presenting to ED for hours of hematuria, with associated confusion and weakness per the patient's . Was recently evaluated in ED 05/15 and discharged on cefdinir. ED course: CBC - RBC 2.83, H&H 9.1/29.0, MCV 102.5, MCHC 31.4, RDW 65.4, platelets 127; PT 14, INR 13; CMP - chloride 109, carbon dioxide 19, BUN 38, creatinine 2.05; lactate 2.1; calcium 8.5; AST 76, alk phosphatase 152, albumin 3; troponin 82.7; UA turbid appearance, 3+ protein, trace ketones, 3+ blood, positive nitrate, 2+ bilirubin, 1+ LE, RBC, WBC, 1+ bacteria.; CXR mild pulmonary vascular congestion, small right greater than left pleural effusion with underlying atelectasis/airspace disease.; CTAP moderate volume right and small volume left pleural effusions with underlying atelectasis, small volume ascites, its cardia, cirrhosis, urinary bladder wall thickening, Marvin catheter in urinary bladder, renal cyst and renal calculi noted; head CT no acute intracranial process.; EKG sinus rhythm with first- degree AV block, rate 70s. Provided with NSS 1 L, and cefepime 2 g in ED. Patient is a 79-year-old male with PMHx CKD with anemia, chronic Marvin catheter, hypothyroidism, cirrhosis, CHF, T2DM, GERD, and history of prostatic malignancy presenting for hematuria. is present at time of visit and able to provide majority of history as patient is a poor historian. States that on 05/15 patient was brought to the ED [facility] for hematuria that resolved while he was in the ED, and he was ultimately discharged home on cefdinir. On 05/16 patient was brought to a different ED for pressure wound on his upper buttocks, which was dressed and managed. Patient arriving today, 05/18, for recurrence of hematuria that has increased in nature. also states that the patient's mental status has declined, as he appears more confused and weak than normal. States that he continues to complain of being cold, but otherwise has not complained of anything else. Patient denies any pain when asked if he specifically has head, chest, or stomach pain. states patient has not had fever/chills, has not complained of shortness of breath, no vomiting or diarrhea, and no additional sick contacts. Discharge Exam gen - comfortable, NAD; altered; sleepy neck - mild JVD at 30 degrees mouth - MM dry; no thrush heart - RRR, s1 s2, 1/6 systolic murmur LSB; mechanical valve closure sound lungs - decreased BS right base - no change; no wheezing; mild-moderate rales left anterior chest today - maybe slightly worse than prior abd - distended with ascites; BS+, NT, no HSM ext - pulses 2+ b/l feet, no edema b/l vascular - permcath right upper chest -- clean psych - oriented to person only/very confused Discharge Plan Discharge Items Patient Disposition[facility] Reason For Visit: HEMATURIA, ALTERED MENTAL STATUS Discharge Diagnosis: 1. Severe failure to thrive 2. Severe acute metabolic encephalopathy/altered mental status 3. End-stage cirrhosis 4. Recurrent hepatic encephalopathy 5. End-stage renal disease on HD Fri/Fri/Friday 6. Severe cardiomyopathy, EF 30-35% / grade 2 diastolic dysfunction 7. Gross hematuria 2nd to radiation cystitis 8. Rhinovirus infection - resolved 9. Pneumonia - resolved 10. Chronic right-sided pleural effusion 11. Marvin-catheter associated UTI - resolved 12. Hematochezia 2nd to radiation proctitis & angioectasis 13. Adrenal insufficiency 14. Hypothyroidism 15. Sacral/buttock decubitus ulcer - stage 3 16. Prior history of prostate cancer 17. Prior history of aortic aneurysm s/p repair 18. Mechanical aortic valve 19. Anemia of chronic disease 20. History of cervical spine fracture 2nd to trauma 21. Increased tone of LEs, tremor, UMN signs on exam - ?progressive supranucl ear palsy? 22. Recurrent urinary retention - s/p marvin insertion Activity: As commented below Activity Comment: bedrest Non-emergency contact: Primary Care Provider Call non-emergency contact if: your pain is not controlled and your pain is worsening Follow-up/Referrals: Sho Bowman DO [Primary Care Provider] - Diet: Carb Consistent or DM2 Diet Texture: Dental soft (bite-sized) Addtl Attending Provider Instructions: 1. NC O2 - 2 liters continuously. 2. Wound Care instructions for buttock/sacral wound - see section below. 3. Maintain marvin catheter; current catheter placed 07/03/24. He intermi ttently has gross hematuria; this has been a chronic problem for months. May flush catheter per your own protocols if any clots, etc. are causing catheter dysfunction. 4. Palliative care/hospice evaluation strongly recommended. 5. Hemodialysis every Friday/Friday/Friday. 6. Defer timing of lab check (CBC, BMP, mag, etc) to receiving SNF medical doctor md, if felt necessary. It was our pleasure to care for Mr Jarquin! Sincerely, Nathaniel Cooper Hospitalist Pending Studies at Discharge: No Stand-Alone Forms: My [facility] Skilled Items Patient informed of condition?: No DNR: Yes Discharge Level of Care: Skilled Communicable Disease: No Discharge Prognosis: Deteriorating Lines: None Urinary Catheter: Yes Medications and DC Order Prescriptions: New ipratropium-albuterol 0.5 mg-3 mg(2.5 mg base)/3 mL Solution For Nebulization 3 ml NEB Q4 PRN (Reason: cough/wheeze/dyspnea) Qty: 1 0RF midodrine 2.5 mg Tablet 5 mg PO TID@0800,1200,1700 Qty: 90 0RF lactulose 10 gram/15 mL (15 mL) Solution 30 g PO TID Qty: 750 0RF sennosides [Senokot] 8.6 mg Tablet 17.2 mg PO QAM Qty: 60 0RF melatonin 3 mg Tablet 6 mg PO HS Qty: 60 0RF hydrocortisone [Cortef] 10 mg Tablet 5 mg PO 1600 Qty: 30 0RF hydrocortisone [Cortef] 10 mg Tablet 15 mg PO QAM Qty: 45 0RF Renal Caps 1 mg Capsule 1 cap PO QAM Qty: 30 0RF Boudreauxs Butt Paste 16 % Ointment 1 applic EXT BID Qty: 45 0RF sevelamer carbonate 800 mg Tablet 800 mg PO TIDM Qty: 90 0RF metoprolol succinate 25 mg tablet extended release 24 hr 12.5 mg PO DAILY Qty: 30 0RF hydrocodone-acetaminophen 5-325 mg Tablet 1 tab PO TID Qty: 30 0RF Continued sertraline 100 mg Tablet 100 mg PO HS Qty: 30 0RF levothyroxine [Synthroid] 75 mcg tablet 75 mcg PO QAM Qty: 30 0RF lansoprazole 30 mg capsule,delayed release(DR/EC) 30 mg PO BID Qty: 60 0RF ondansetron 4 mg tablet,disintegrating 4 mg PO Q6H PRN (Reason: Nausea And Vomiting) Qty: 10 0RF Xifaxan 550 mg tablet 550 mg PO BID Qty: 60 0RF Changed quetiapine 25 mg tablet 12.5 mg PO HS Qty: 30 0RF bumetanide 1 mg tablet 2 mg PO DAILY Qty: 60 0RF Rx Instructions: MONDAYS, WEDNESDAYS, AND FRIDAYS Discontinued cholecalciferol (vitamin D3) 50 mcg (2,000 unit) capsule 50 mcg PO QPM Rx Instructions: chewable clonazepam 0.5 mg tablet 0.5 mg PO DAILY PRN (Reason: Anxiety) Rx Instructions: PATIENT HASN'T USED IN MONTHS hydrocortisone acetate 1 % cream 1 applic topical BID PRN (Reason: Skin Irritation) tamsulosin 0.4 mg capsule 0.8 mg PO QPM hydroxyzine HCl 10 mg tablet 10 mg PO BID PRN (Reason: Itching) quetiapine 50 mg tablet 50 mg PO HS cefdinir 300 mg capsule 300 mg PO BID Qty: 14 0RF metoprolol tartrate 25 mg tablet 25 mg PO BID cyanocobalamin (vitamin B-12) [Vitamin B-12] 1,000 mcg Tablet 1,000 mcg PO DAILY Rx Instructions: chewable lactulose 10 gram/15 mL Syrup 30 g PO BID Discharge Orders: Discharge Order (Routine); Ordered 07/13/24 Ordered By: Verona Santiago Admission Data Admit Date/Time: 05/18/24 18:18 Attending Provider: Dennis Pan Admit Provider: Christopher Henao Primary Care Provider: Sho Bowman Other Providers: [facility]; Christopher Henao; Lefty Sparks; Ray Hinson; Tapan Mcdaniel; Laura Newberry; Sheba Barrientos; Ale Ho; Rodrigo Hsieh; Katarina Jimenes; Marin Dorado Jr; [facility]; [facility] Stay Data Consultations [facility] Nephrology [facility] Neurology [facility] Palliative Care [facility] Gastroenterology [facility] Cardiology PT, OT Speech therapy Wound care Procedures Performed 1. Operation Date: 06/22/24 16:30 Actual Procedures Flexible Sigmoidoscopy Hemostasis - Felix Butcher MD Findings: - Multiple small patchy angioectasias with bleeding on contact were found in the distal rectum. Coagulation for hemostasis using argon plasma at 1 liter/minute and 30 escalona was successful. - Radiation proctitis noted with oozing on contact or air. APC done but patient had ulceration still present from last apc and was oozing on arrival at [facility]. Hold all anticoag for now. Impression: - Multiple colonic angioectasias. Treated with argon plasma coagulation (APC). - Radiation proctitis noted with oozing on contact or air. APC done but patient had ulceration still present from last apc and was oozing on arrival at [facility]. Hold all anticoag for now. - No specimens collected. Recommendation: - he has been APC'd with prior apc ulceration already present. I worry about bleeding with any hard bm. Soften stools and supportive care. - if significant bleeding then ddavp 2. FIVE units PRBCs 3. Hemodialysis 4. Echocardiogram - EF 30-35%, mechanical aortic valve, grade 2 diastolic dysfunction (07/03/24) Diagnostic Imagining Performed Chest X-Ray 05/18/24 16:07 INDICATION: Chest pain. TECHNIQUE: Frontal radiograph of the chest. COMPARISON: Radiograph from 02/28/2024. FINDINGS: Cardiomegaly. Right-sided dialysis catheter tip in the right atrium. Mild pulmonary vascular congestion. Small right greater than left pleural effusions with underlying atelectasis/airspace disease. No pneumothorax. No acute fracture. IMPRESSION: Mild pulmonary vascular congestion. Small right greater than left pleural effusions with underlying atelectasis/airspace disease. Electronically signed by Jacobo Cano 05-18-2024 4:39 PM Abdomen/Pelvis CT 05/18/24 16:14 INDICATION: Decreased urine output. Altered mental status COMPARISON: CT from 08/08/2023. TECHNIQUE: Axial CT images of the abdomen and pelvis were obtained without IV contrast administration. Coronal and sagittal reformations were reviewed. FINDINGS: Moderate volume right and small volume left pleural effusions with underlying atelectasis. Cardiomegaly. Heterogeneous/nodular appearance of the liver likely related to or cirrhosis. The gallbladder is surgically absent. Splenomegaly. The pancreas and adrenal glands appear unremarkable. Bilateral renal cysts, exophytic) with calcifications appear similar. Nonobstructing small left renal calculi. No hydronephrosis. No evidence of bowel obstruction/colitis/appendicitis. No free air. No drainable fluid collection. Anasarca. Atheromatous plaquing of the abdominal aorta without evidence of aneurysm. Urinary bladder wall thickening. Marvin catheter in the urinary bladder. Bilateral inguinal hernias containing fat and small amount of ascites on the left. Degenerative changes in the spine. No acute osseous abnormality evident. IMPRESSION: 1. Moderate volume right and small volume left pleural effusions with underlying atelectasis. 2. Small volume ascites. Anasarca. 3. Cirrhosis. 4. Urinary bladder wall thickening. Flow catheter in the urinary bladder. 5. Renal cysts and renal calculi again noted. No hydronephrosis. Electronically signed by Jacobo Cano 05-18-2024 5:[address] 05/18/24 16:14 INDICATION: Altered mental status. COMPARISON: CT from 08/31/2023 TECHNIQUE: Axial CT images of the head were obtained without IV contrast. Coronal and sagittal reformations were reviewed. FINDINGS: Soria-white differentiation is relatively preserved. No mass, mass effect or midline shift. Chronic ischemic white matter changes. Basal ganglia calcifications. No evidence of acute large territorial infarction or acute intracranial hemorrhage. Ventricles appear normal in size. Basal cisterns are patent. No depressed calvarial fracture. IMPRESSION: No acute intracranial process. Electronically signed by Jacobo Cano 05-18-2024 5:11 PM Chest X-Ray 05/26/24 12:33 XR chest 1V portable CLINICAL HISTORY: Tachypnea. COMPARISON STUDY: Chest radiograph May 18, 2024. FINDINGS: A dual lumen right internal jugular dialysis catheter remains in place. There are median sternotomy wires. Moderate cardiomegaly is noted. Pulmonary edema persists. A moderate right pleural effusion has increased in size. Associated airspace opacity is present. There is a small left pleural effusion. There is no pneumothorax. IMPRESSION: 1. Increase in size of a moderate right pleural effusion. Associated airspace opacity favors atelectasis although pneumonia could appear similar. Small left pleural effusion. 2. Cardiomegaly with persistent pulmonary edema. ACT 112: Negative or not required by law. Electronically signed by: Atif Langston M.D. 05/26/2024 1:25 PM KUB X-Ray 05/26/24 12:33 KUB HISTORY: Acute abdominal pain with distention abd distension, nausea COMPARISON: CT abdomen and pelvis 05/18/2024 FINDINGS: Right upper quadrant surgical clips are redemonstrated. Cardiomegaly with median sternotomy. Nonobstructive bowel gas pattern. Mild gaseous distention of the large bowel. No renal calculi. No ureteral calculi. No pneumoperitoneum or pneumatosis. No fracture. IMPRESSION: Nonobstructive bowel gas pattern. ACT 112: Negative or not required by law. The above report was generated using voice recognition software. It may contain grammatical, syntax or spelling errors. Electronically signed by: Paul Reyna M.D. 05/26/2024 1:22 PM Videofluoroscopic Swallow 05/28/24 09:30 MODIFIED BARIUM SWALLOW CLINICAL HISTORY: dysphagia; h/o aspiration COMPARISON STUDY: Modified barium swallow August 11, 2023. FLUOROSCOPY TIME: 2.58 minutes. ka,r: 13.6 mGy. TECHNIQUE: A modified barium swallow was performed in conjunction with Speech Pathology. The patient ingested varying consistencies of barium containing material. Video fluoroscopy was performed. FINDINGS: No aspiration was identified with thin liquids by spoon, cup or straw. There was no aspiration with nectar thick liquids, pudding or cracker and pudding consistencies. Prolonged mastication with cracker and pudding consistency was noted. Epiglottic inversion was normal. Laryngeal elevation was within normal limits. IMPRESSION: 1. Intact swallowing mechanism. No tracheal aspiration. 2. Full recommendations by Speech pathology to follow. ACT 112: Negative or not required by law. Electronically signed by: Atif Langston M.D. 05/28/2024 10:26 AM Brain MRI 05/29/24 07:00 EXAM: MR brain wo con CLINICAL HISTORY: altered mental status, Hx fractured vertebra in lower c-spine and upper t-spine around 4 years ago, questioning cord impingement or brain lesions, PT is on dialysis, evaluate for stroke also, has been off Coumadin for a few months, PT unable to lay flat for scan, head had to be propped up quite a bit to get PT scanned, best obtainable images for PT''s condition, PT unable to fully cooperate, screened PT through his Lakia Jarquin and daughter Kristin Jarquin, delay in getting PT scanned due to PT being in dialysis for 3 hours TECHNIQUE: MRI of the brain was performed without contrast with multiplanar sequences obtained. Images were sent through PACS for diagnostic interpretation. COMPARISON: Comparison is made with prior imaging studies dated 09/04/2023. FINDINGS: Brain Parenchyma: Periventricular deep white matter signal alteration is likely related to small vessel disease. No evidence of acute infarction or hemorrhage. Normal soria-white matter differentiation. No mass lesions or focal cortical abnormalities were identified. Ventricles and Sulci: Normal size and configuration of the lateral ventricles, third ventricle, and fourth ventricle. No evidence of hydrocephalus or ventriculomegaly. Sylvian fissures, sulci, and cisterns are within normal limits. Posterior Fossa: The cerebellum and brainstem appear normal without evidence of mass lesions or signal abnormalities. Cranial Nerves: Normal course and appearance of cranial nerves identified. Vessels: No evidence of vascular malformations or aneurysms. Intracranial arteries and veins appear normal without evidence of stenosis or occlusion. Orbits and Skull Base: Orbits and skull base structures are normal without evidence of abnormalities. IMPRESSION: MRI of the brain: 1. Periventricular deep white matter signal alteration is likely related to small vessel disease ([place] 2). 2. No evidence of acute infarction or hemorrhage. 3. No interval changes. Electronically signed by Jeffery Saleh 05-29-2024 4:33 PM Cervical Spine MRI 05/29/24 07:00 EXAM: MR cervical spine wo con CLINICAL HISTORY: altered mental status, Hx fractured vertebra in lower c-spine and upper t-spine around 4 years ago, questioning cord impingement or brain lesions, PT is on dialysis, evaluate for stroke also, has been off Coumadin for a few months, PT unable to lay flat for scan, head had to be propped up quite a bit to get PT scanned, best obtainable images for PT''s condition, PT unable to fully cooperate, screened PT through his Lakia Jaqruin and daughter Kristin Jarquin, delay in getting PT scanned due to PT being in dialysis for 3 hours sent to [facility] TECHNIQUE: An MRI of the cervical spine was performed without contrast administration. Sequences obtained include sagittal T1-weighted, T2-weighted, STIR (Short Tau Inversion Recovery), and axial T2-weighted sequences. Images were sent through PACS for diagnostic interpretation. COMPARISON: No previous studies are available for comparison. FINDINGS: Vertebral Alignment: Small old fracture of the anterior superior wedge of the C5 vertebra and an old injury of the right facetal joint at the level of C4 and C5. First-degree spondylolithesis of C4 over C5 vertebrae. Tiny focal of the high signal of cervical spinal cord C5 vertebra at its left side likely small myelomalacia. Degenerative changes of the spines with osteophyte formation. Intervertebral discs demonstrate degenerative changes. [id number] analysis: C2-C3: There is no significant disc pathology. Normal morphology of the ligamentum flava. No arthropathy of the uncovertebral and zygapophyseal joints. No significant spinal canal stenosis C3-C4: There is no significant disc pathology. Normal morphology of the ligamentum flava. No arthropathy of the uncovertebral and zygapophyseal joints. No significant spinal canal stenosis C4-C5: There is degenerative changes with arthropathy of the uncovertebral, zygapophyseal joints and unilateral facetal injury causing pressure upon the neural foramen more on the right side No spinal canal stenosis C5-C6: There is no significant disc pathology. Normal morphology of the ligamentum flava. No arthropathy of the uncovertebral and zygapophyseal joints. No significant spinal canal stenosis C6-C7: There is no significant disc pathology. Normal morphology of the ligamentum flava. No arthropathy of the uncovertebral and zygapophyseal joints. No significant spinal canal stenosis C7-T1: There is no significant disc pathology. Normal morphology of the ligamentum flava. No arthropathy of the uncovertebral and zygapophyseal joints. No significant spinal canal stenosis Soft Tissues: Paraspinal soft tissues showed mild atrophic changes in the muscles. IMPRESSION: 1. Small old fracture of the anterior superior wedge of the C5 vertebra and old injury of the right facetal joint at the level of C4 and C5 suggesting unilateral facetal injury. First-degree spondylolithesis of C4 over C5 vertebrae. 2. Tiny focal of the high signal of cervical spinal cord C5 vertebra at its left side likely small myelomalcia. 3. Degenerative changes of the spines and intervertebral discs more at the C4-5 level together with arthropathy of the uncovertebral, zygapophyseal joints and facetal injury causing pressure upon the right neural foramen. No spinal canal stenosis Electronically signed by Jeffery Saleh 05-29-2024 5:10 PM Chest X-Ray 05/30/24 16:11 EXAM: Radiograph of the Chest 1 View INDICATION: CHF versus pneumonia. TECHNIQUE: Frontal view of the chest. COMPARISON: 05/26/2024 FINDINGS: Lungs and pleural spaces: There is increased consolidation in the left lung base and stable right basilar consolidation. Small right pleural effusion slightly increased layering more posteriorly. No pneumothorax. Increased underlying pulmonary vascular congestion. Heart: Stable cardiomegaly. Mediastinum: Normal contour. Bones/joints: No fracture, erosion or dislocation. Soft tissues: No abnormality noted. No radiopaque foreign body noted. Tubes, lines and devices: Right internal jugular central venous catheter tip in the distal superior vena cava. Upper abdomen: No abnormality noted. IMPRESSION: 1. Increased small bilateral pleural effusions with worsening left and stable right basilar airspace disease which could reflect pneumonia or compressive atelectasis. 2. Increased component of underlying pulmonary vascular congestion. ACT 112: Negative or not required by law. Electronically signed by Tamara Valentine 05-30-2024 5:17 PM Chest X-Ray 06/03/24 06:15 EXAM: XR chest 1V portable CLINICAL HISTORY: increased oxygen requirement brm TECHNIQUE: X-ray chest Frontal projection COMPARISON: None. FINDINGS: Right-sided permacath seen with its distal tip noted sinoatrial junction. There are multifocal areas of airspace shadowing seen involving bilateral lung benites. There is interstitial thickening also noted in the bilateral lung field. Right lung volume is reduced. Right costophrenic is not appreciated. There is leveling/layering noted in the visualized right lower lung could be secondary to underlying pleural effusion however concomitant and other pathology cannot be excluded would recommend CT. The left costophrenic angle is clear Sternotomy sutures are seen Cardiac size cannot be accurately commented on in this view IMPRESSION: 1. Overall imaging findings could be secondary to developing pulmonary edema with possible superimposed pulmonary infection. CT is advised for further evaluation 2. Leveling/layering noted in the visualized right lower lung could be secondary to underlying pleural effusion, however concomitant other pathology cannot be excluded would recommend CT. [facility]'s ER was called at at 6:10 AM CELL LEAD, 06/03/2024 and (Juan Wright was informed about the presence of important medical findings. Electronically signed by Toni Whatley 06-03-2024 07:[address] 06/03/24 07:48 EXAM: CT Chest Without Intravenous Contrast INDICATION: Pleural effusions. TECHNIQUE: Axial computed tomography images of the chest without intravenous contrast. Sagittal and coronal reformatted images were created and reviewed. This CT exam was performed using one or more of the following dose reduction techniques: automated exposure control, adjustment of the mA and/or kV according to patient size, and/or use of iterative reconstruction technique. COMPARISON: Chest x-ray the same day FINDINGS: Limitations: None. Lungs and pleural spaces: Moderate to large right and small left layering pleural effusions. No pneumothorax. There is extensive groundglass infiltrate in both lungs most notably involving the left upper lobe. There is dependent consolidation along both pleural effusions right greater than left. There is bilateral lower lobe airway plugging left greater than right. Heart: Cardiomegaly. Dense coronary calcification. There is dense calcification of the mitral and aortic valves. No pericardial effusion. Thyroid: No abnormality noted. Bones/joints: Degenerative changes noted throughout the spine. No acute osseous abnormality seen. Soft tissues: No significant abnormality noted. Vasculature: No abnormality noted. No thoracic aortic aneurysm. Lymph nodes: No enlarged lymph nodes. Intraperitoneal space: Upper abdominal ascitic fluid noted. Tubes, lines and devices: Right internal jugular central venous catheter tip in the distal superior vena cava. IMPRESSION: 1. Moderate to large right and small left layering pleural effusions. 2. Extensive groundglass infiltrates in both lungs. Consider pneumonia including viral etiologies and CHF. There is compressive atelectasis along both pleural effusions. 3. Upper abdominal ascites. ACT 112: Negative or not required by law. Electronically signed by Tamara Valentine 06-03-2024 09:07 AM Chest X-Ray 06/11/24 08:24 XR chest 1V portable CLINICAL HISTORY: R pleural effusion/decreased BS COMPARISON STUDY: Chest radiograph and chest CT June 03, 2024. FINDINGS: Dual lumen right internal jugular central venous catheter is in place. There are median sternotomy wires. Cardiomegaly is unchanged. Moderate right and small left pleural effusions are noted. Interstitial thickening persists. Bilateral airspace opacities are again noted. There is no pneumothorax. IMPRESSION: 1. Cardiomegaly with persistent pulmonary edema. 2. Moderate right and small left pleural effusions. Associated bibasilar opacities favor atelectasis although pneumonia could appear similar. ACT 112: Negative or not required by law. Electronically signed by: Atif Langston M.D. 06/11/2024 8:59 AM Venous Doppler Study 06/17/24 09:38 US venous doppler LE RT HISTORY: 79 years-old Male swelling, r/o DVT acute pain and swelling of the right lower leg COMPARISON: None TECHNIQUE: Multiple real-time sonographic images of the right lower extremity deep venous structures were obtained assessing grayscale appearance, color and spectral flow. FINDINGS: Normal flow, compressibility, phasicity and augmentation. Subcutaneous edema. IMPRESSION: No sonographic evidence of deep venous thrombosis. ACT 112: Negative or not required by law. The above report was generated using voice recognition software. It may contain grammatical, syntax or spelling errors. Electronically signed by: Paul Reyna M.D. 06/17/2024 11:48 AM Chest X-Ray 07/01/24 15:06 EXAM: Radiograph of the Chest 1 View INDICATION: Dyspnea. TECHNIQUE: Frontal view of the chest. COMPARISON: 06/11/2024 FINDINGS: Lungs and pleural spaces: There is increased vascular congestion and pulmonary edema. Stable small bilateral pleural effusions. Stable consolidation in the right lung base and minimal patchy density in the left base. No pneumothorax. Heart: Stable large cardiac shadow. Mediastinum: Normal contour. Bones/joints: No fracture, erosion or dislocation. Soft tissues: No abnormality noted. No radiopaque foreign body noted. Tubes, lines and devices: Right internal jugular central catheter terminates approximately 4 cm distal to the cavoatrial junction unchanged. Upper abdomen: No abnormality noted. IMPRESSION: Worsening CHF and/or pneumonia with stable consolidation in the right lung base. Consider component of mucous plugging. ACT 112: Negative or not required by law. Electronically signed by Tamara Valentine 07-01-2024 4:40 PM Chest X-Ray 07/02/24 09:00 XR chest 2V PA/lateral CLINICAL HISTORY: f/u CHF vs pneumonia TECHNIQUE: 2 views of the chest were obtained. Comparison: Comparison is made to chest radiograph 07/01/2024 FINDINGS: Lines and tubes are stable. Cardiomegaly is noted. The aortic arch is calcified. There is prominence and cephalization of the vasculature with Tay B lines seen. Bibasilar airspace opacities are unchanged. Small bilateral pleural effusions are seen. IMPRESSION: 1. Cardiomegaly and moderate pulmonary edema. 2. Stable airspace opacities compatible with alveolar edema versus. ACT 112: Negative or not required by law. Electronically signed by: Toni Novak M.D. 07/02/2024 1:14 PM Abdomen Ultrasound 07/02/24 17:34 Exam(s): US ABDOMEN LIMITED EXAM: US Abdomen Limited, Right Upper Quadrant CLINICAL HISTORY: Reason for exam: eval volume ascites, ?need for para. TECHNIQUE: Real-time ultrasound of the right upper quadrant with image documentation. COMPARISON: CT 05/18/2024 FINDINGS: Liver: Nodular contour of the liver consistent with cirrhosis. Gallbladder: Gallbladder is filled with stones and debris. Largest measures 8 mm. Negative Chao's sign. Common bile duct: Unremarkable as visualized. No stones. Pancreas: Pancreas is obscured. Right kidney: Unremarkable. No hydronephrosis. Free fluid: Ascites. IMPRESSION: 1. Cholelithiasis. 2. Nodular contour of the liver consistent with cirrhosis. 3. Ascites. Electronically signed by: Demond Ho MD 07/02/24 23:09 PM Chest X-Ray 07/03/24 07:00 EXAM: XR chest 1V portable CLINICAL HISTORY: Routine morning portable for follow up. TECHNIQUE: X-ray image of the chest was obtained in 1 view: Frontal projection. COMPARISON: Prior X-ray dated 06/11/2024. FINDINGS: Right CVL in situ. Pulmonary Parenchyma: Unchanged air space opacities in bilateral lungs (rightleft) and prominent bilateral parahilar markings. Unchanged right pleural effusion. Heart and Mediastinum: Cardiomegaly. Aortic knuckle calcification. No mediastinal widening or masses. No hilar or mediastinal lymphadenopathy. Bony Thorax: Sternotomy sutures. Bony thorax appears intact without fractures or deformities. Soft Tissues: Soft tissues overlying the chest wall are unremarkable. IMPRESSION: 1. Right CVL in situ. 2. Cardiomegaly. 3. Unchanged air space opacities in bilateral lungs (rightleft) and prominent bilateral parahilar markings, likely infective vs pulmonary edema. Clinical and lab correlation is advised. 4. Unchanged right pleural effusion. Electronically signed by Jeffery Saleh 07-03-2024 08:24 AM Discharge Instructions Given to Patient (Per Discharging Provider) 1. NC O2 - 2 liters continuously. 2. Wound Care instructions for buttock/sacral wound - see section below. 3. Maintain marvin catheter; current catheter placed 07/03/24. He intermittently has gross hematuria; this has been a chronic problem for months. May flush catheter per your own protocols if any clots, etc. are causing catheter dysfunction. 4. Palliative care/hospice evaluation strongly recommended. 5. Hemodialysis every Friday/Friday/Friday. 6. Defer timing of lab check (CBC, BMP, mag, etc) to receiving SNF medical doctor md, if felt necessary. It was our pleasure to care for Mr Jarquin! Sincerely, Nathaniel Cooper Hospitalist Total Time Total Time Spent Total Time Spent (In Minutes): 60 Coding Level of Care Code 56351 INP/OBS DISCH >30 MIN Diagnoses Encephalopathy acute G93.40 Failure to thrive End stage kidney disease N18.6 Acute kidney injury N17.9 CHF (congestive heart failure) I50.9 Cirrhosis K74.60 Urinary tract infection with hematuria N39.0; R31.9 Rhinovirus infection B34.8 Urinary tract infection due to Enterococcus N39.0; B95.2 Anemia in chronic kidney disease (CKD) N18.9; D63.1 Diabetes mellitus, type 2 E11.9 Muscle tone increased M62.89 Acute hepatic encephalopathy K76.82 History of fractured vertebra Z87.81 Hx of aortic valve replacement, mechanical Z95.2 Hx of aortic aneurysm Z86.79 Pancytopenia D61.818 Hypothyroidism E03.9 Adrenal insufficiency E27.40 Radiation proctitis K62.7 Recurrent right pleural effusion J90 Stage III pressure sore L89.93
[2024-07-13 07:38] VITALS: RESP 17; O2SAT 96
[2024-07-13 09:18] VITALS: BP 106/58; PULSE 87
--- NOTE | 2024-07-13 09:43 | Nephrology Progress Note ---
Date of Service July 13, 2024 Assessment & Plan (1) End stage kidney disease: (2) Anemia: (3) Generalized weakness: (4) Encephalopathy acute: (5) Failure to thrive: Plan 79-year-old male with h/o ESKD and h/o stage 4 CKD with baseline creatinine 2.0 mg/dl dating back to at least 08/30. He was hospitalized at [facility] 2 months ago for hepatorenal syndrome and required initiation of HD but stopped, had R IJ TCC in place. He was then admitted at [facility] on 05/18/2024 with gross hematuria, AMS INR 13 and creatinine 2.0. Renal ultrasound negative for hydronephrosis. Kidney function continued to worsen with oliguria and no improvement in mental status and he was restarted on HD on 05/27/24 for oliguric VINICIUS. He remains dialysis dependent for > a month, no sign of renal recovery, noted to have sharp rise in creatinine in between dialysis. Continue on maintenance hemodialysis, currently blood pressure, electrolyte acceptable. --had Hemodialysis yesterday, continue on Bumex 2 mg daily --Dose medications for eGFR less than 10 --LANDEN with HD --possible discharge today to long term acute care registered nurse care facility. Admission and Anticipated Discharge Date Admission Date: May 18, 2024 Subjective Papito was seen and evaluated this morning. Awake, alert today, but confused. Volume status acceptable. Blood pressure has been stable, heart rate controlled. Had HD yesterday. Review of Systems Review of Systems: Detailed review of system was not possible because of confusion but clinically he seemed comfortable. Physical Exam Constitutional: WD/WN, vitals as above + ill appearing Respiratory: Auscultation: + diminished lung sounds Cardiovascular: RRR, no murmur, no edema Skin: + turgor decreased and + skin atrophy; n o ulcers Neurologic: awake Psychiatric: Orientation: alert and cooperative Results & Data Vital Signs (Past 12 Hours) Vital Signs Temp Pulse Pulse Resp BP Pulse Ox O2 Del Method 07/13/24 09:17 87 106/58 L 96 Nasal Cannula 07/13/24 08:00 Nasal Cannula 07/13/24 07:37 36.4 C L 78 17 93/61 L 96 Nasal Cannula O2 Flow Rate 07/13/24 09:17 2 07/13/24 08:00 2 07/13/24 07:37 2 PG Care Time/CCT Total # of Minutes Spent Total Time Spent with Patient: Total time spent is greater than 50% in coordination of care (as documented) at patient's floor/unit and/or counseling patient: Coding Level of Care Code 36654 SUB INP/OBS CARE 2/35MIN Diagnoses End stage kidney disease N18.6 Anemia D64.9 Anemia type: unspecified type Generalized weakness R53.1 Encephalopathy acute G93.40 Failure to thrive (2) Anemia Anemia type: unspecified type Qualified Code(s): D64.9 - Anemia, unspecified
== END 2024-07-13 10:39 | DRG 698 ==
LOC: ED 15:49 → SUATTDRO 18:18 → EDINP 18:18 → 2W 20:20 → 3N 06-10 21:41
DX: Z96.0 Presence of urogenital implants; I24.89 Other forms of acute ischemic heart disease; B34.8 Other viral infections of unspecified site; I13.2 Hypertensive heart and chronic kidney disease with heart failure and with stage 5 chronic kidney disease, or end stage renal disease; B95.2 Enterococcus as the cause of diseases classified elsewhere; Z79.899 Other long term (current) drug therapy; D63.1 Anemia in chronic kidney disease; K74.60 Unspecified cirrhosis of liver; I50.32 Chronic diastolic (congestive) heart failure; E11.22 Type 2 diabetes mellitus with diabetic chronic kidney disease; N17.9 Acute kidney failure, unspecified; T83.511A Infection and inflammatory reaction due to indwelling urethral catheter, initial encounter; E03.9 Hypothyroidism, unspecified; Z79.890 Hormone replacement therapy; Z85.46 Personal history of malignant neoplasm of prostate; G93.41 Metabolic encephalopathy; R31.0 Gross hematuria; Z66 Do not resuscitate; K55.21 Angiodysplasia of colon with hemorrhage; Z95.2 Presence of prosthetic heart valve; R18.8 Other ascites; J15.9 Unspecified bacterial pneumonia; N40.0 Benign prostatic hyperplasia without lower urinary tract symptoms; D61.818 Other pancytopenia; Z16.21 Resistance to vancomycin; J98.11 Atelectasis; K76.82 Hepatic encephalopathy; E27.40 Unspecified adrenocortical insufficiency; N99.114 Postprocedural urethral stricture, male, unspecified; Z88.8 Allergy status to other drugs, medicaments and biological substances; R62.7 Adult failure to thrive; N18.6 End stage renal disease; F03.90 Unspecified dementia, unspecified severity, without behavioral disturbance, psychotic disturbance, mood disturbance, and anxiety; I44.0 Atrioventricular block, first degree; I08.2 Rheumatic disorders of both aortic and tricuspid valves; N39.0 Urinary tract infection, site not specified; R33.9 Retention of urine, unspecified; I42.9 Cardiomyopathy, unspecified; D62 Acute posthemorrhagic anemia; G23.1 Progressive supranuclear ophthalmoplegia [Steele-Richardson-Olszewski]; G92.8 Other toxic encephalopathy; J90 Pleural effusion, not elsewhere classified; L89.153 Pressure ulcer of sacral region, stage 3